=== PATIENT | female | born 1970 | race Caucasian/White ===

== ENCOUNTER → 2017-01-30 | Outpatient (CLI) | payer MEDICAID ==
[~2017-01-30] MED LIST: AMRIX15 MG PO; ASPIRIN 81MG TA81 MG PO; ATIVAN1 MG PO; ATIVAN2 MG PO; AVPAK AZITHROM250 MG PO; BENZONATATE100 M1 PO; BYSTOLIC10 MG PO; CARISOPRODOL350 MG PO; CELEXA20 MG PO; CITALOPRAM20 MG PO; CLONIDINE 0.1M0.1 MG TD; CLONIDINE0.1 MG PO; DICLOFENAC SODI75 M2 PO; FLORINEF 0.1MG0.1 MG OR; GABAPENTIN100 M1 PO; HALDOL 1MG. TABL1 MG PO; HYDROCHLOROTHIA25 M1 PO; HYDROCODONE BIT1 T39 PO; KAPIDEX60 MG PO; KEFLEX 500MG.500 MG PO; LEVOTHYROXINE0.05 MG PO; LISINOPRIL 20MG20 MG PO; LORAZEPAM2 MG PO; LORTAB 5/500 501 TAB PO; MEDROL 4MG. DOSE4 MG PO; METOPROLOL TAR100 MG PO; MS CONTIN PO; NEURONTIN 100100 MG PO; NEXIUM40 MG PO; NORVASC 10MG. T10 MG PO; PHENERGAN 25MG.25 M1 PO; PHENERGAN50 M1 PO; PROMETHAZINE D473 ML PO; PROPRANOLOL HCL40 MG PO; RANITIDINE HCL150 MG PO; REGLAN 10 MG TA10 MG PO; SOMA350 MG PO; SPIRONOLACTONE50 MG OR; VENTOLIN H0.09 MG/Ac IH; ZITHROMAX Z PA250 MG PO; ZOLPIDEM 10MG T10 MG PO
--- NOTE | 2017-01-30 16:28 | RADIOLOGY REPORT PS360 ---
CT ABD PELVIS W/ CONTRAST CLINICAL INDICATION: LLQ PAIN,POSS HERNIA ORDERING PHYSICIAN: González French MD PATIENT AGE: 46 years COMPARISON: None TECHNIQUE: Axial images obtained with sagittal and coronal reformats. PROCEDURE: Oral Contrast: Redicat IV Contrast: 75 mL Isovue-370 . FINDINGS: There are minimal atelectatic or fibrotic changes are in the lung bases. There is mild diffuse hepatic steatosis. Prior cholecystectomy. No biliary dilatation. The spleen, adrenal glands, and pancreas are unremarkable. No hydronephrosis or obstructing renal or ureteral calculus. No intestinal obstruction or free air. The appendix has an unremarkable appearance. The uterus is somewhat bulky abnormal lobular contour which may be seen with fibroid involvement. Ultrasound may confirm. 2.7 cm isodensity right adnexa consistent with right ovarian cyst. Lobular left ovarian cyst present at 3.7 cm. No abdominal wall hernia there is mild thickening of the sigmoid colon probably related to nondistention. There is no stranding of the pericolic fat and no abnormal fluid collections are evident. There are bilateral tubal ligation clips. There is some thickening of the left lower abdominal wall probably related to prior surgery. No hernia is evident. IMPRESSION: 1. No acute intra-abdominal or pelvic pathology. 2. No evidence of abdominal wall hernia. Postsurgical changes of the anterior abdominal wall and the left. 3. Bilateral ovarian cysts. The uterus is somewhat bulky. Pelvic ultrasound may be of further value 4. Other nonacute findings as described above
== END ==
LOC: RAD 10:11
DX: R10.32 Left lower quadrant pain (principal)
CPT/HCPCS: Q9967

== ENCOUNTER 2017-07-01 18:13 | Observation (INO) | payer MEDICAID ==
[~2017-07-01] VITALS: Ht 167.6 cm; Wt 91.4 kg
[2017-07-01 18:15] VITALS: BP 123/74
[2017-07-01] MEDS ORDERED: CLONIDINE 0.2M0.2 MG PO ×2 (18:27→23:30)
--- OUTSIDE RECORDS SUMMARY | 2017-07-01 19:04 | External Medical Summary Rpt ---
Author Author [facility] Organization [facility] Address Unknown Phone Unavailable Care Team Providers Care Supervisor [employer] Name Role Phone LILIA, (REF) PCP [phone] Encounter [facility] [id number] Date(s): 03/24/16 - 11/25/16 [facility] [address] [place] [address]- Reason for Visit NEW PT - GASTROPARESIS Vital Signs No data available for this section Problem List No data available for this section Allergies, Adverse Reactions, Alerts No data available for this section Medications No data available for this section Results No data available for this section Immunizations No data available for this section Procedures No data available for this section Social History No data available for this section Assessment and Plan No data available for this section Hospital Discharge Instructions No data available for this section
--- OUTSIDE RECORDS SUMMARY | 2017-07-01 19:04 | External Medical Summary Rpt ---
Author Author [facility] Organization [facility] Address Unknown Phone Unavailable Care Team Providers Care Machine Leather Trimmer Name Role Phone LILIA, (REF) PCP [phone] Encounter [facility] [id number] Date(s): 02/29/16 - 03/24/17 [facility] [address] [place] [address]- [phone] Discharge Disposition: OP Self Care or Home Reason for Visit NEW PT - GASTROPARESIS [...]
--- OUTSIDE RECORDS SUMMARY | 2017-07-01 19:04 | External Medical Summary Rpt ---
Author Author [facility] Organization [facility] Address Unknown Phone Unavailable Care Team Providers Care Crane Crew Supervisor Name Role Phone LILIA, (REF) PCP [phone] Encounter [facility] [id number] Date(s): 03/24/16 - 11/25/16 [facility] [address] [place] [address]- Reason for Visit NEW PT - GASTROPARESIS [...]
--- OUTSIDE RECORDS SUMMARY | 2017-07-01 19:04 | External Medical Summary Rpt ---
Author Author [facility] Organization [facility] Address Unknown Phone Unavailable Care Team Providers Care Trailhead Construction Worker Name Role Phone LILIA, (REF) PCP [phone] Encounter [facility] [id number] Date(s): 02/29/16 - 03/24/[address] [facility] [address] [place] [address]- [phone] Discharge Disposition: OP Self Care or Home [...]
--- OUTSIDE RECORDS SUMMARY | 2017-07-01 19:13 | External Medical Summary Rpt ---
Author Author , MARLA Ochoa MARLA Address Unknown Phone [email or web address] Care Team Providers Care Thread Weaver Name Role Phone ALLRAN JR, ALLRAN JR Unavailable Unavailable ALLRAN JR MILY, ALLRAN Unavailable Unavailable JR MILY PAVAN MUELLER MD, PSC, Unavailable Unavailable PAVAN MUELLER MD, PSC ARNMALLY MAXFAYE Unavailable Unavailable MAX ARNMALLY MAX, ARNOLD Unavailable Unavailable MXA [facility] Unavailable Unavailable MEDICAL GROUP, [facility] Un[facility] Unavailable [facility], [facility] BEINEKE, BEINEKE Unavailable Unavailable BEINEKE KOLBY BEINEKE Unavailable Unavailable KOLBY JIMENEZ TER, JIMENEZ TER Unavailable Unavailable BESSON OFE, BESSON Unavailable Unavailable OFE [facility] Unavailable Unavailable [facility], [facility] SANTIAGO, SANTIAGO Unavailable Unavailable TEAGAN ANT, TEAGAN ANT Unavailable Unavailable MICHAEL, MICHAEL Unavailable Unavailable MICHAEL MEGAN, MICHAEL Unavailable Unavailable MEGAN [facility] Unavailable Unavailable SERVICE, [facility] Unavailable Unavailable SERVICE, [facility] BUX, BUX Unavailable Unavailable [facility], Unavailable Unavailable LLC, [facility], Unavailable Unavailable LLC, [facility] Unavailable Unavailable CONSULTANTS O, [facility] CASE JUS, CASE JUS Unavailable Unavailable [facility], Unavailable Unavailable [facility] Unavailable Unavailable PHYS [facility], [facility] Unavailable Unavailable [facility]OC, [facility] Unavailable Unavailable THE BLUE, [facility] MARKS HESHAM, MARKS HESHAM Unavailable Unavailable JAYLYN MOTA, Unavailable Unavailable JAYLYN MOTA CROSSFIELD KOLBY, Unavailable Unavailable CROSSFIELD KOLBY CROSSFIELD KOLBY, Unavailable Unavailable CROSSFIELD KOLBY ALYCE JANET, Unavailable Unavailable ALYCE JANET ALYCE JANET, Unavailable Unavailable ALYCE JANET ZACHARY FEDE, ZACHARY Unavailable Unavailable FEDE DUFF, DUFF Unavailable Unavailable DUFF CHARMAINE, DUFF CHARMAINE Unavailable Unavailable TOÑITO MAURICE, Unavailable Unavailable TOÑITO MAURICE [facility], [facility] Unavailable Unavailable [facility], [facility] Unavailable Unavailable JOHNSON, JOHNSON Unavailable Unavailable JOHNSON, JOHNSON Unavailable Unavailable JOHNSON CLA, JOHNSON Unavailable Unavailable CLA JAROD FEDE, JAROD Unavailable Unavailable FEDE [facility], [facility], Unavailable [facility] Unavailable Unavailable EMS, [facility] CALLUM WHI, CALLUM Unavailable Unavailable WHI CALLUM WHI, CALLUM Unavailable Unavailable I [facility] Unavailable Unavailable INC, [facility] Unavailable Unavailable HOSPITAL, [facility] Unavailable Unavailable HOSPITAL P, [facility] P [facility], Unavailable Unavailable [facility] GO, GO Unavailable Unavailable GO TRA, GO TRA Unavailable Unavailable GO TRA, GO TRA Unavailable Unavailable ESPINOSA LEL, ESPINOSA LEL Unavailable Unavailable [facility] Unavailable Unavailable [facility] TALHAMt SANCHEZ, KEIRA Unavailable Unavailable M DANIEL [facility] Unavailable Unavailable [facility]ING [facility], [facility] Unavailable Unavailable ASSOCIAT, [facility] TAYLOR OFE, TAYLOR Unavailable Unavailable OFE CLEVE, CLEVE Unavailable Unavailable [facility] NURSE Unavailable Unavailable PRACTITIONER GR, [facility] NURSE PRACTITIONER MITCH GERONIMO Unavailable Unavailable [facility], [facility] Unavailable Unavailable HOLDINGS, [facility] Unavailable Unavailable HOLDINGS, [facility] Unavailable Unavailable [facility], [facility] Unavailable Unavailable [facility], [facility]ORATORY Unavailable Unavailable CORPORATION OF AM, [facility] DOMI CRI, DOMI CRI Unavailable Unavailable BRIAN JR DWI, BRIAN Unavailable Unavailable JR DWI [facility] Unavailable Unavailable ASSOCIATES,, [facility], GARCIA MAX, GARCIA Unavailable Unavailable MAX Antoinette Villeda MD, Unavailable Unavailable Antoinette Villeda MD MARII HAM, MARII HAM Unavailable Unavailable MARII HAM, MARII HAM Unavailable Unavailable APPLE, APPLE Unavailable Unavailable APPLE ANT, APPLE Unavailable Unavailable ANT APPLE ANT, APPLE Unavailable Unavailable ANT LUDMILA, LUDMILA Unavailable Unavailable LUDMILA, LUDMILA Unavailable Unavailable LUDMILA GRE, Unavailable Unavailable LUDMILA GRE LUDMILA GRE, Unavailable Unavailable LUDMILA GRE HANKS MAX, HANKS Unavailable Unavailable MAX [facility]available Unavailable SERV LEAD MATERIAL HANDLER R, [facility] LEAD MATERIAL HANDLER R [facility] Unavailable Unavailable SERV LEAD MATERIAL HANDLER R, [facility] SERV LEAD MATERIAL HANDLER R MONGIARDO FRA, Unavailable Unavailable MONGIARDO FRA MORRIN, MORRIN Unavailable Unavailable MORRIN YANY, MORRIN Unavailable Unavailable YANY [facility] Unavailable Unavailable BOARD, [facility] Unavailable Unavailable [facility], Unavailable Unavailable PLLC, [facility], [facility] Unavailable Unavailable PICKLESIMER JR YEE, Unavailable Unavailable PICKLESIMER JR YEE TOLENTINO, TOLENTINO Unavailable Unavailable FLORENTIN SUSAN, FLORENTIN SUSAN Unavailable Unavailable SCALF, SCALF Unavailable Unavailable ESSIE CAROL ANN, ESSIE Unavailable Unavailable CAROL ANN [facility], Unavailable Unavailable [facility] Unavailable Unavailable JAL, [facility] MAT, Unavailable Unavailable FINES[facility] MAT PADILLA JAVI, PADILLA Unavailable Unavailable JAVI PARKS, PARKS Unavailable Unavailable PARKS, PARKS Unavailable Unavailable PARKS JOCELIN, PARKS JOCELIN Unavailable Unavailable SOTINGEANU KOLBY, Unavailable Unavailable SOTINGEANU KOLBY CHEMA, CHEMA Unavailable Unavailable SPOONAMORE, Unavailable Unavailable SPOONAMORE STEARLEY SET, Unavailable Unavailable STEARLEY SET Gene Dent MD, Unavailable Unavailable Gene Dent MD JOSE DE JESUS HOLLY, JOSE DE JESUS Unavailable Unavailable HOLLY FRANCINE PAD, Unavailable Unavailable FRANCINE PAD FERDINAND, FERDINAND Unavailable Unavailable [facility], [facility] Unavailable Unavailable [facility], Unavailable Unavailable [facility] VASCELLO GIANNI, Unavailable Unavailable VASCELLO GIANNI VASCELLO GIANNI, Unavailable Unavailable VASCELLO GIANNI WALKER, WALKER Unavailable Unavailable WALKER FOR, WALKER Unavailable Unavailable FOR HAROLDO SHIELDS Unavailable Unavailable HERRERA WHITE JUDY, WHITE JUDY Unavailable Unavailable Purpose Continuity of Care Document - 01-06-2013 through 2016 Problems Code Diagnosis DOS Provider Status [id number] OTHER 05-25-2017 [facility] VITREOUS OPACITIES RIGHT EYE H538 OTHER 05-25-2017 [facility] VISUAL DISTURBANCE S M5030 OT 05-25-2017 [facility] CERVICAL [facility] DISC INC DEGENERATIO N UNS CERV REGION M5136 OTH 05-20-2017 [facility] INTER[facility]TEB ORTHOTICS, RAL DISC LLC DEGEN LUMBAR REGION M5010 CERVICAL 05-06-2017 PAVANJAY JAY VILLEGASX, DISC D/O MD, PSC W/RADICULOP ATHY UNS CERV RGN M5116 INTERVERTEB 05-06-2017 PAVAN VILLEGASX, RAL DISC , PSC D/O W/RADICULOP ATHY LUMB RGN M961 POSTLAMINEC 05-06-2017 [facility] JUSTINO [facility] SYNDROME INC NEC R52 PAIN 05-06-2017 COMMUNITY UNSPECIFIED ANESTH OF THE BLUE R14618 ENCOUNTER 05-01-2017 [facility] FOR OTHER MEM [facility]OS[facility] PREPROCEDUR INC AL EXAMINATION Z0100 ENCOUNTER 04-27-2017 STEVENSON EXAM EYES & VISION W/O ABNORMAL FIND M7062 TROCHANTERI 04-20-2017 GRACE Kellogg BURSITIS ORTHOPEDIC LEFT HIP ASSOCIAT I32009 LATTICE 04-15-2017 JOHNSON DEGENERATIO N OF RETINA BILATERAL H5310 UNSPECIFIED 04-15-2017 ALEX SUBJECTIVE VISUAL DISTURBANCE S Q0700 ARNOLD-KEAGAN 04-15-2017 JOHNSON RI SYND W/O SPINA BIFIDA/HYDR OCEPHLUS Z36477 MIGRAINE 04-09-2017 [facility] W/O AURA NEUROLOGY INTRACT W/O STAT MIGRAINOSUS G8929 OTHER 04-09-2017 [facility] PAIN MEDICAL GROUP J0140 ACUTE 04-09-2017 [facility] PANSINUSITI HEALTH S MEDICAL UNSPECIFIED GROUP [id number] PAIN IN 04-09-2017 [facility] LEFT HIP HEALTH MEDICAL GROUP R51 HEADACHE 04-09-2017 [facility] R600 LOCALIZED 04-09-2017 [facility] EDEMA COMMUNTIY HOSPITA E039 HYPOTHYROID 04-02-2017 [facility] ISM HEALTH UNSPECIFIED MEDICAL GROUP J0100 ACUTE 04-02-2017 [facility] MAXILLARY HEALTH SINUSITIS MEDICAL UNSPECIFIED GROUP M549 DORSALGIA 04-02-2017 [facility] UNSPECIFIED HEALTH MEDICAL GROUP M5412 RADICULOPAT 03-16-2017 [facility] HY CERVICAL MEM HOSP REGION INC M5416 RADICULOPAT 03-16-2017 [facility] HY LUMBAR [facility] REGION INC K3184 GASTROPARES 02-06-2017 [facility] PHYSIC[facility]ANS GROUP D259 LEIOMYOMA 02-05-2017 [place] [facility] OF U[place] SERV UNSPECIFIED FOUNDATION I10 ESSENTIAL 02-05-2017 [place] [facility] PRIMARY SERV HYPERTENSIO FOUNDATION N S11449 UNSPECIFIED 02-05-2017 [place] [facility] OVARIAN SERV CYST RIGHT FOUNDATION SIDE L64018 UNSPECIFIED 02-05-2017 [place] [facility] O[facility] SERV CYST LEFT FOUNDATION SIDE N898 OTHER 02-05-2017 [place] [facility] SPECIFIED SERV NONINFLAMMA FOUNDATION TORY DISORDERS VAGINA R978 OTHER 02-05-2017 [place] [facility] ABNORMAL SERV TUMOR FOUNDATION MARKERS Z8041 FAMILY 02-05-2017 [place] [facility] HISTORY OF SERV MALIGNANT FOUNDATION NEOPLASM OF OVARY R1032 LEFT LOWER 01-30-2017 [place] [facility]ING ASS R1013 EPIGASTRIC 01-20-2017 COMMUNITY PAIN ANESTH OF THE BLUE K651 PERITONEAL 01-05-2017 [facility] ABSCESS PHYSICIANS GROUP G4719 OTHER 12-31-2016 [facility] HYPERSOMNIA [facility] INC R0683 SNORING 12-31-2016 [facility] INC G935 COMPRESSION 12-23-2016 [facility] OF BRAIN [facility]OS[facility] INC K219 GASTRO-ESOP 12-23-2016 [facility] H REFLUX MEM HOSP DISEASE INC WITHOUT ESOPHAGITIS K5900 CONSTIPATIO 12-11-2016 LAB DEVENDRA N MANISH UNSPECIFIED HOLDINGS M2550 PAIN IN 12-11-2016 LAB DEVENDRA UNSPECIFIED MANISH JOINT HOLDINGS R350 FREQUENCY 12-11-2016 LAB DEVENDRA OF MANISH MICTURITION HOLDINGS I87985 UNSPECIFIED 11-10-2016 [facility] OVARIAN [facility] CYST INC UNSPECIFIED SIDE M791 MYALGIA 10-17-2016 [facility] INC G909 DISORDER 09-30-2016 [facility] AUTONOMIC MEDICAL NERVOUS GROUP SYSTEM UNS R072 PRECORDIAL 09-30-2016 [facility] PAIN HEALTH MEDICAL GROUP E782 MIXED 09-26-2016 LAB DEVENDRA HYPERLIPIDE MANISH HERIBERTO HOLDINGS I69049 ENCOUNTER 09-26-2016 [facility], GENERAL MERCHANDISE MANAGER EXAM LLC GENERAL RTN W/O ABNORMAL FIND Z1151 ENCOUNTER 09-26-2016 [facility], FOR LLC SCREENING FOR HUMAN PAPILLOMAVI IVET L659 NONSCARRING 09-12-2016 [facility] HAIR LOSS [facility] UNSPECIFIED INC G57256U LAC W/O FB 09-01-2016 [facility] RT MIDDLE [facility] FINGER W/O INC DAMAGE NAIL INIT M08937I LAC W/O FB 09-01-2016 [facility] UNS FINGER PHYSICIANS, W/O DAMAGE PLLC NAIL INITIAL D722PLQ CONTACT OTH 09-01-2016 [facility] SHARP [facility] OBJECT NOT INC ELSWHERE CLASS INIT F90601 KITCHEN 09-01-2016 [facility] SINGLE-FAM MEM H[facility]P HOUSE PLACE INC OCCUR EXT CAUSE Z23 ENCOUNTER 09-01-2016 [facility] FOR MEM HOS[facility] IMMUNIZATIO INC N M4806 SPINAL 08-27-2016 [facility] STENOSIS COMMUNTIY LUMBAR HOSPITA REGION M5126 OTH 08-27-2016 [facility] INTERVERTEB COMMUNTIY RAL DISC HOSPITA DISPLACEMEN T LUMBAR RGN M542 CERVICALGIA 08-25-2016 [facility] PHYSICIANS GROUP D229 MELANOCYTIC 08-07-2016 K[facility] NURSE NEVI PRACTITIONE UNSPECIFIED R GR I868 VARICOSE 08-07-2016 KM NURSE VEINS OF PRACTITIONE OTHER R GR SPECIFIED SITES L709 ACNE 08-07-2016 [facility] NURSE UNSPECIFIED PRACTITIONE R GR R601 GENERALIZED 08-05-2016 LAB DEVENDRA EDEMA MANISH HOLDINGS M8580 OT SPEC 07-08-2016 [facility] D/O BONE HEALTH DENSITY MEDICAL STRUCTURE GROUP [facility] SITE M545 LOW BACK 07-03-2016 [facility] PAIN ORTHOPAEDIC S PSC M461 SACROILIITI 06-27-2016 [facility] S NOT MEM HOSP ELSEWHERE INC CLASSIFIED H5213 MYOPIA 06-12-2016 [facility] BILATERAL SERV FOUNDATION H5319 OTHER 06-12-2016 [place] [facility] SUBJECTIVE SERV VISUAL FOUNDATION DISTURBANCE S X22412 CHRONIC 05-14-2016 [facility] MIGRAINE HEALTH W/O AURA MEDICAL INTRACT W/O GROUP STAT MIGR M810 AGE-RELATED 05-09-2016 [facility] OSTEOPOROSI INC S W/O CURRNT PATH FX Z1231 ENCOUNTER 05-09-2016 [facility] SCREENING MEDICAL MAMMO MALIG IMAGING ASS NEOPLASM BREAST P01759 ENCOUNTER 05-09-2016 [place] FOR MEDICAL SCREENING IMAGING ASS FOR OSTEOPOROSI S K5909 OTHER 05-06-2016 [facility] CONSTIPATIO Medicine N K591 FUNCTIONAL 05-06-2016 [facility] DIARRHEA Medicine M4800 SPINAL 05-06-[address] [facility] UNSPECIFIED R140 ABDOMINAL 05-06-2016 [facility] DISTENSION Medicine GASEOUS R6881 EARLY 05-06-2016 [facility] SATIETY Medicine R5382 CHRONIC 04-29-2016 [facility] FATIGUE [facility] UNSPECIFIED MEDICAL GROUP R5383 OTHER 04-18-2016 LAB DEVENDRA FATIGUE MANISH HOLDINGS R42 DIZZINESS 04-07-2016 HM AND PHYSICIANS GIDDINESS GROUP [id number] CONCUSSION 04-07-2016 [facility] WITHOUT LOC PHYSICIANS INITIAL GROUP ENCOUNTER X92362 ACUTE 03-02-2016 [place] [facility] [facility]PPURATIVE [facility] W/O HOSPITAL RUPT EAR DRUM UNS EAR R110 NAUSEA 02-27-2016 [facility] GROUP [id number] CONCUSSION 02-27-2016 [facility] W/LOC UNS HEALTH DURATION MEDICAL INITIAL GROUP ENCOUNTER M1611 UNILATERAL 01-29-2016 [place] PRIMARY MEDICAL OSTEOARTHRI IMAGING ASS TIS RIGHT HIP Z25771 PAIN IN 01-29-2016 [place] RIGHT HIP MEDICAL IMAGING ASS H5210 MYOPIA 01-15-2016 [place] [facility] UNSPECIFIED SERV EYE FOUNDATION H5203 HYPERMETROP 12-27-2015 [facility] IA GRE BILATERAL J069 ACUTE UPPER 12-13-2015 LAB DEVENDRA MANISH RESPIRATORY HOLDINGS INFECTION UNSPECIFIED R928 OTH ABNORM 12-13-2015 [facility] & HEALTH INCONCLUSIV MEDICAL E FIND ON GROUP DX IMAG BREAST Z6829 BODY MASS 12-13-2015 [facility] INDEX BMI HEALTH 29.0-29.9 MEDICAL ADULT GROUP J0190 ACUTE 12-09-2015 [facility]IS [facility] R05 COUGH 11-16-2015 [facility] ASTUDILLO, [facility] M5430 SCIATICA 10-17-2015 [facility] UNSPECIFIED HEALTH SIDE MEDICAL GROUP H539 UNSPECIFIED 10-04-2015 [facility] VISUAL HEALTH DISTURBANCE MEDICAL GROUP R358 OTHER 10-04-2015 [facility] POLYURIA HEALTH MEDICAL GROUP R079 CHEST PAIN 10-02-2015 [place] [facility] UNSPECIFIED SERV FOUNDATION R9431 ABNORMAL 10-02-2015 [facility] ELECTROCARD LAR IOGRAM CONSULTANTS O C32538 OTHER LONG 10-01-2015 [facility] TERM PHYSICIANS CURRENT GROUP DRUG THERAPY Z0000 ENCOUNTER 09-25-2015 [facility] GEN ADULT HEALTH MED EXAM MEDICAL W/O GROUP ABNORMAL FIND A6000 HERPESVIRAL 08-17-2015 [facility] INFECTION HEALTH OF MEDICAL UROGENITAL GROUP SYSTEM UNS B009 HERPESVIRAL 08-17-2015 [facility] INFECTION HEALTH UNSPECIFIED MEDICAL GROUP Z202 CONTACT 08-17-2015 [facility] WITH HEALTH EXPOSURE MEDICAL INFECT GROUP SEXUAL MODE TRANSMS 93931 DEGEN 07-26-2015 [place] [place] LUMBAR/LUMB MEDICAL OSACRAL IMAGING ASS INTERVERTEB RAL DISC 7242 LUMBAGO 07-26-2015 [facility] 71355 PROGRESSIVE 07-25-2015 [facility] HIGH SERV MYOPIA FOUNDATION 55312 CHRONIC 07-11-2015 [facility] MIGRAINE HEALTH W/O MEDICAL W/INTRACTAB GROUP LE W/O SM 7231 CERVICALGIA 07-11-2015 [facility]ICAL GROUP 7049 UNSPECIFIED 07-02-2015 [facility] DISEASE OF HEALTH HAIR AND MEDICAL HAIR GROUP FOLLICLES 7245 UNSPECIFIED 07-02-2015 [facility] BACKACHE HEALTH MEDICAL GROUP 7881 DYSURIA 07-02-2015 LAB DEVENDRA MANISH HOLDINGS 3384 CHRONIC 06-22-2015 LAB DEVENDRA PAIN MANISH SYNDROME HOLDINGS 5990 URINARY 06-22-2015 LAB DEVENDRA TRACT MANISH INFECTION HOLDINGS SITE NOT SPECIFIED 93520 OTHER 06-15-2015 [place] [facility] VITREOUS SERV OPACITIES FOUNDATION 5363 GASTROPARES 05-14-2015 [facility] IS SERV FOUNDATION 5609 UNSPECIFIED 05-14-2015 [facility] INTESTINAL SERV FOUNDATION OBSTRUCTION 7873 FLATULENCE 05-14-2015 [place] [facility] ERUCTATION SERV AND GAS FOUNDATION PAIN 4011 ESSENTIAL 05-01-2015 [facility] HYPERTENSIO HEALTH N, BENIGN MEDICAL GROUP 26266 ACUTE 05-01-2015 [facility] IDIOPATHIC HEALTH PERICARDITI MEDICAL S GROUP 73207 OTHER CHEST 05-01-2015 [facility] PAIN HEALTH MEDICAL GROUP V7281 PRE-OPERATI 05-01-2015 [facility] VE HEALTH CARDIOVASCU MEDICAL LAR GROUP EXAMINATION 7213 LUMBOSACRAL 04-23-2015 [place] [facility] SPONDYLOSIS IMAGING ASS WITHOUT MYELOPATHY 21555 DISPLCMT 04-23-2015 [place] LUMBAR MEDICAL INTERVERT IMAGING ASS DISC W/O MYELOPATHY 76091 LATTICE 04-20-2015 [place] [facility] DEGENERATIO SERV N OF FOUNDATION PERIPHERAL RETINA 2449 UNSPECIFIED 04-08-2015 [facility] HYPOTHYROID ISM 3671 MYOPIA 04-08-2015 [facility] 46514 OTHER 04-08-2015 [facility] DISTORTIONS AND ENTOPTIC PHENOMENA 3688 OTHER 04-08-2015 [place] [facility] SPECIFIED SERV VISUAL FOUNDATION DISTURBANCE S 07023 PAIN IN OR 04-08-2015 [facility] 4019 UNSPECIFIED 04-08-2015 [facility] HYPERTENSIO N 4239 UNSPECIFIED 04-08-2015 [facility] PERICARDIUM 4289 UNSPECIFIED 04-08-2015 [facility] FAILURE SERV LEAD MATERIAL HANDLER R 56023 OTHER 04-08-2015 [facility] LUNG NOT ELSEWHERE CLASSIFIED 81198 CHEST PAIN 04-08-2015 [place] [facility] UNSPECIFIED SERV FOUNDATION V1259 PERS HX, 04-08-2015 [place] [facility] OTHER SERV DISEASES OF FOUNDATION CIRCULATORY SYSTEM 3699 UNSPECIFIED 04-07-2015 [facility] VISUAL EMERGENCY LOSS PHYS PSC 39524 UNSPECIFIED 04-07-2015 [facility] DISORDER AMBULANCE OF EYE SERVICE 7820 DISTURBANCE 03-29-2015 [facility] SKIN [facility] SENSATION MEDICAL GROUP 78149 REGULAR 03-28-2015 [place] [facility] ASTIGMATISM SERV FOUNDATION 08584 INTERMITTEN 03-28-2015 [place] [facility] T SERV EXOTROPIA, FOUNDATION ALTERNATING 38664 OTHER 03-01-2015 [place] SPECIFIED MEDICAL DISORDERS IMAGING ASS OF BREAST 79433 UNSPECIFIED 03-01-2015 [facility] ABNORMAL [facility] MAMMOGRAM INC 06409 ATROPHIC 02-26-2015 [facility], GASTRITIS LLC WITHOUT MENTION OF HEMORRHAGE 43180 UNS 02-26-2015 [facility] GASTRITIS&G [facility]OS[facility] ASTRODUODIT INC IS W/O MENTION HEMORR 84160 NAUSEA 02-26-2015 [facility] ALONE [facility] INC 97199 ABDOMINAL 02-26-2015 [facility] PAIN, MEM HOSP GENERALIZED INC V5869 LONG-TERM 02-26-2015 [facility] (CURRENT) MEM HOS[facility] USE OF INC OTHER MEDICATIONS 7804 DIZZINESS 11-29-2014 [facility] 7840 HEADACHE 11-29-2014 [facility] MEDICAL GROUP 15984 OTHER 10-27-2014 [facility] DISEASES OF PHYSICIANS LARYNX GROUP 08025 DYSPHONIA 10-27-2014 [facility] PHYSICIANS GROUP 72339 DYSPHAGIA 10-27-2014 [facility] UNSPECIFIED PHYSICIANS GROUP V642 SURG/OTH 10-23-2014 [facility] PROC NOT [facility] CAR[facility]ED OUT HOSPITAL P BECAUSE PTS DECN 72453 EARLY 10-17-2014 [facility] SATIETY PHYSICIANS GROUP 98221 DYSPHAGIA 10-17-2014 [facility] OROPHARYNGE PHYSICIANS AL PHASE GROUP 36450 ABDOMINAL 10-17-2014 [facility] PAIN, PHYSICIANS EPIGASTRIC GROUP 79152 INSOMNIA 09-27-2014 [facility] KORINA V700 ROUTINE 09-21-2014 [facility]AL [facility] MEDICAL INC EXAM@HEALTH CARE FACL V7612 OTHER 09-21-2014 [place] SCREENING MEDICAL MAMMOGRAM IMAGING ASS 46082 ABDOMINAL 09-18-2014 [place] PAIN, MEDICAL UNSPECIFIED IMAGING ASS SITE 3829 UNSPECIFIED 09-16-2014 ARN[facility] MAX OTITIS MEDIA 4619 ACUTE 09-16-2014 FAYE SANTANA SINUSITIS, UNSPECIFIED V0481 NEED 09-16-2014 F[facility] SANTANA PROPHYLACTI C VACCINATION &INOCULATIO N FLU 3502 ATYPICAL 09-06-2014 [facility] 08476 MIGRAINE 08-24-2014 [facility] W/O AURA NEUROLOGY INTRACT W/O CENTER [place] STATUS MIGRAINOSUS 2181 INTRAMURAL 08-23-2014 [facility] DESOLDERER OF UTERUS ASSOCIATES, 2189 LEIOMYOMA 08-15-2014 [place] OF UTERUS, MEDICAL UNSPECIFIED IMAGING ASS 6202 OTHER AND 08-15-2014 [facility] UNSPECIFIED MEM HOSP OVARIAN INC CYST 6259 UNSPEC 08-15-2014 [place] [facility] IMAGING ASS W/FEMALE GENITAL ORGANS 7812 ABNORMALITY 08-09-2014 [facility] OF GAIT NEUROLOGY CENTER [facility] V7231 ROUTINE 08-07-2014 [facility] BENJAMIN GYNECOLOGIC AL EXAMINATION V762 SCREENING 08-07-2014 LABORATORY FOR DEVENDRA OF MALIGNANT MANISH H NEOPLASM OF THE CERVIX 92726 ESOPHAGEAL 07-31-2014 [facility] REFLUX HEALTH MEDICAL GROUP 7291 UNSPECIFIED 06-04-2014 EMPI INC MYALGIA AND MYOSITIS 5950 ACUTE 05-03-2014 CALL[facility] BENJAMIN CYSTITIS 58681 OTHER 05-03-2014 [place] [address] OSTEOARTHRO 04-21-2014 FAYE SANTANA S INVLV MX SITES BUT [place] SPEC GEN 62530 BENIGN 04-17-2014 [facility] PAROXYSMAL [facility] POSITIONAL HOSP VERTIGO V571 OTHER 04-17-2014 [facility] PHYSICAL [facility] THERAPY [facility]OSP 7210 CERVICAL 03-21-2014 V[facility] SPONDYLOSIS GIANNI WITHOUT MYELOPATHY 7230 SPINAL 03-20-2014 [place] STENOSIS IN [place] CERVICAL REGION 78666 SPINAL STEN 03-20-2014 [place] LUMB REG [place] W/O NEUROGENIC CLAUDICATIO N 06434 SPINA 03-20-2014 [place] BIFIDA WITH KOL[place] HYDROCEPHAL US CERVICAL REGION 30927 POSTLAMINEC 01-31-2014 MARII HAM JUSTINO SYNDROME CERVICAL REGION 7244 THORACIC/ABRAHAM 01-31-2014 MARIIRUPALI STEIN MBOSACRAL NEURITIS/RA DICULITIS UNSPEC 0549 HERPES 01-26-2014 [facility] BENJAMIN SIMPLEX WITHOUT MENTION OF COMPLICATIO N 5533 DIAPHRAGMAT 01-19-2014 [facility] JERRYI ALTAGRACIA W/O MENTION OBSTRUCTION /GANGREN 7821 RASH AND 01-19-2014 CALL[facility] WHI OTHER NONSPECIFIC SKIN ERUPTION 7850 UNSPECIFIED 01-18-2014 APPLE ANT TACHYCARDIA 52933 CHRONIC 01-13-2014 [facility] W/O AURA W/O INTRACTABLE W/O SM 7218 OTHER 01-10-2014 ALY[facility] ALLIED JANET DISORDERS OF SPINE 7220 DISPLCMT 01-10-2014 [facility] CERV JANET INTERVERT DISC WITHOUT MYELOPATHY 47579 KYPHOSIS 01-10-2014 [facility] ACQUIRED JANET POSTURAL V454 ARTHRODESIS 01-10-2014 [facility] STATUS JANET V1641 FAMILY 01-05-2014 ALYCE HISTORY OF JANET MALIGNANT NEOPLASM OVARY 7224 DEGENERATIO 12-29-2013 GO TRA N OF CERVICAL INTERVERTEB RAL DISC 2724 OTHER AND 12-28-2013 APPLE ANT UNSPECIFIED HYPERLIPIDE HERIBERTO 34116 ABDOMINAL 12-08-2013 CALLUM WHI PAIN, LEFT LOWER QUADRANT 345.90 345.90 09-21-2013 Mehran EPILEPSY [facility] UNSPEC W/O Hospital MENTION INTRACTABLE EPILEPSY 401.9 401.9 09-21-2013 Mehran HYPERTENSIO [facility] N [facility] 413.9 413.9 09-21-2013 Mehran ANGINA [facility] PECTORIS [facility] NEC/NOS 786.50 786.50 09-21-2013 Mehran CHEST PAIN [facility] V14.8 V14.8 09-21-2013 Mehran HX-DRUG [facility] ALLERGY [facility] V45.89 V45.89 09-21-2013 Mehran POSTSURGICA [facility] V58.69 V58.69 OTH 09-21-2013 Mehran MED,LT,CURR [facility] ENT USE Hospital 4299 UNSPECIFIED 09-10-2013 [facility] 60657 ALTERED 09-06-2013 [facility] 692.9 692.9 05-24-2013 Mehran DERMATITIS [facility] 723.1 723.1 05-24-2013 Mehran CERVICALGIA [facility] 780.39 780.39 05-24-2013 Mehran OTHER [facility] CONVULS[facility] [place] [facility] 780.2 780.2 01-07-2013 Mehran SYNCOPE AND [facility] 780.79 780.79 OTH 01-07-2013 Mehran MALAISE&FAT [facility] IGUE [facility] 781.2 781.2 01-07-2013 Mehran ABNORMALITY [facility] M54.2 CERVICALGIA R05 COUGH R07.9 CHEST PAIN, UNSPECIFIED R51 HEADACHE S61.219A LACERATION W/O FB OF UNSP FINGER W/O DAMAGE TO NAIL, INIT Z53.21 PROC/TRTMT NOT CRD OUT D/T PT LV BEF SEEN BY [facility] PROV Allergies, Adverse Reactions, Alerts Type Drug Allergy Adverse Reaction to Substance Substance Reaction Severity Penicillin Unknown Unknown Penicillin G Unknown Unknown Ondansetron Unknown Unknown Niacin Unknown Unknown Medications Na ND Rx Da Fi Fi Am Da Di Ph RX Ph St me C No te ll ll ou ys ag ar # ys at rm s nt no ma ic us Or Da si cy ia de te s n re d ZO 13 07 08 30 30 00 RI Ac LP 66 -1 -1 .0 00 TE ti ID 80 7- 1- 00 01 ve EM 00 20 20 18 AI 80 17 17 72 D TA 1 21 PH RT AR RA MA TE CY 10 #3 93 MG 8 TA BL ET VA 65 07 08 30 7 00 RI Ac OM 16 -1 -0 .0 00 TE ti ET 20 0- 4- 00 01 ve GERARDO 52 20 20 19 AI ZI 11 17 17 11 D NE 0 08 PH AR 25 MA CY MG #3 TA 93 BL 8 ET PO 62 07 08 52 30 00 RI Ac LY 17 -1 -0 7. 00 TE ti ET 50 0- 4- 00 01 ve HY 44 20 20 0 16 AI LE 23 17 17 85 D NE 1 77 PH AR GL MA YC CY OL #3 33 93 50 8 PO WD OM 00 07 08 30 30 00 RI Ac EP 78 -1 -0 .0 00 TE ti RA 12 2- 4- 00 01 ve ZO 79 20 20 18 AI LE 01 17 17 [address] AR MA 20 CY MG #3 93 CA 8 PS UL E TO 69 07 07 30 30 00 RI Ac PI 09 -0 -2 .0 00 TE ti RA 70 3- 8- 00 01 ve MA 12 20 20 19 AI TE 20 17 17 02 D 3 98 PH 25 AR MA MG CY TA #3 BL 93 ET 8 AM 00 07 07 30 30 00 RI Ac LO 37 -0 -2 .0 00 TE ti DI 85 3- 8- 00 01 ve PI 20 20 20 17 AI NE 90 17 17 91 D 5 31 PH BE AR SY MA LA CY TE 5 #3 93 MG 8 TA B CL 00 07 07 12 30 00 RI Ac ON 22 -0 -2 0. 00 TE ti ID 82 3- 8- 00 01 ve IN 12 20 20 0 18 AI E 75 17 17 31 D HC 0 00 PH L AR 0. MA 1 CY MG #3 TA 93 BL 8 ET BY 00 06 07 60 [address] 45 -2 -2 .0 00 TE ti OL 61 7- 1- 00 01 ve IC 42 20 20 16 AI 03 17 17 75 D 20 0 84 PH AR MG MA CY TA BL #3 ET 93 8 PH 00 06 07 10 3 00 RI Ac EN 59 -2 -2 .0 00 TE ti AD 12 7- 1- 00 01 ve OZ 99 20 20 18 AI 23 17 17 96 D 25 9 41 PH AR MG MA CY TIPTON PP #3 OS 93 IT 8 OR Y TA 00 06 07 60 30 00 RI Ac MS 78 -2 -2 .0 00 TE ti UL 12 7- 1- 00 01 ve OS 07 20 20 18 AI IN 60 17 17 96 D 1 42 PH HC AR L MA 0. CY 4 MG #3 93 CA 8 PS UL E FL 68 06 07 2. 4 00 RI Ac UC 46 -2 -2 00 00 TE ti ON 20 7- 1- 0 01 ve AZ 10 20 20 18 AI OL 34 17 17 96 D E 0 43 PH 15 AR 0 MA MG CY TA #3 BL 93 ET 8 SY 00 06 07 30 30 00 RI Ac NT 07 -2 -2 .0 00 TE ti HR 44 7- 1- 00 01 ve OI 55 20 20 18 AI D 29 17 17 61 D 50 0 48 PH AR MC MA G CY TA BL #3 ET 93 8 AM 00 06 06 30 30 00 RI Ac LO 37 -0 -3 .0 00 TE ti DI 85 3- 0- 00 01 ve PI 20 20 20 17 AI NE 90 17 17 91 D 5 31 PH BE AR SY MA LA CY TE 5 #3 93 MG 8 TA B CL 00 06 06 12 30 00 RI Ac ON 22 -0 -3 0. 00 TE ti ID 82 5- 0- 00 01 ve IN 12 20 20 0 18 AI E 75 17 17 31 D HC 0 00 PH L AR 0. MA 1 CY MG #3 TA 93 BL 8 ET TO 69 06 06 30 30 00 RI Ac PI 09 -0 -3 .0 00 TE ti RA 70 5- 0- 00 01 ve MA 12 20 20 18 AI TE 20 17 17 32 D 3 01 PH 25 AR MA MG CY TA #3 BL 93 ET 8 OM 00 06 06 30 30 00 RI Ac EP 78 -0 -3 .0 00 TE ti RA 12 7- 0- 00 01 ve ZO 79 20 20 18 AI LE 01 17 17 [address] AR MA 20 CY MG #3 93 CA 8 PS UL E LO 00 05 06 30 10 00 RI Ac RA 59 -3 -2 .0 00 TE ti ZE 10 0- 3- 00 01 ve PA 24 20 20 18 AI M 20 17 17 59 D 2 1 65 PH MG AR MA TA CY BL ET #3 93 8 SY 00 05 06 30 30 00 RI Ac NT 07 -2 -2 .0 00 TE ti HR 44 4- 3- 00 01 ve OI 55 20 20 18 AI D 29 17 17 61 D 50 0 48 PH AR MC MA G CY TA BL #3 ET 93 8 TI 55 05 06 90 30 00 RI Ac ZA 11 -3 -2 .0 00 TE ti NI 10 1- 3- 00 01 ve DI 18 20 20 15 AI NE 01 17 17 27 D 5 66 PH HC AR L MA 4 CY MG #3 TA 93 BL 8 ET LE 65 05 06 7. 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 5 00 RI Ac IT 11 -1 -0 00 00 TE ti HR 10 7- 9- 0 01 ve OM 78 20 20 18 AI YC 76 17 17 43 D IN 6 09 PH AR 25 MA 0 CY MG #3 TA 93 BL 8 ET ZO 13 05 06 30 30 00 RI Ac LP 66 -1 -0 .0 00 TE ti ID 80 5- 9- 00 01 ve EM 00 20 20 17 AI 80 17 17 91 D TA 1 29 PH RT AR RA MA TE CY 10 #3 93 MG 8 TA BL ET VA 65 05 06 30 15 00 RI Ac OM 16 -1 -0 .0 00 TE ti ET 20 5- 9- 00 01 ve GERARDO 52 20 20 17 AI ZI 11 17 17 73 D NE 0 66 PH AR 25 MA CY MG #3 TA 93 BL 8 ET TO 69 05 06 30 30 00 RI Ac PI 09 -0 -0 .0 00 TE ti RA 70 9- 2- 00 01 ve MA 12 20 20 18 AI TE 20 17 17 32 D 3 01 PH 25 AR MA MG CY TA #3 BL 93 ET 8 AM 00 05 06 30 30 00 RI Ac LO 37 -0 -0 .0 00 TE ti DI 85 6- 2- 00 01 ve PI 20 20 20 17 AI NE 90 17 17 91 D 5 31 PH BE AR SY MA LA CY TE 5 #3 93 MG 8 TA B OM 00 05 06 30 30 00 RI Ac EP 78 -0 -0 .0 00 TE ti RA 12 6- 2- 00 01 ve ZO 79 20 20 17 AI LE 01 17 17 [address] AR MA 20 CY MG #3 93 CA 8 PS UL E CL 00 05 06 12 30 00 RI Ac ON 22 -0 -0 0. 00 TE ti ID 82 8- 2- 00 01 ve IN 12 20 20 0 18 AI E 75 17 17 31 D HC 0 00 PH L AR 0. MA 1 CY MG #3 TA 93 BL 8 ET LE 00 04 05 30 30 00 RI Ac VO 37 -2 -1 .0 00 TE ti TH 81 6- 9- 00 01 ve YR 80 20 20 17 AI OX 37 17 17 31 D IN 7 16 PH E AR 50 MA CY MC G #3 TA 93 BL 8 ET BY 00 04 05 60 [address] 45 -2 -1 .0 00 TE ti OL 61 6- 9- 00 01 ve IC 42 20 20 16 AI 03 17 17 75 D 20 0 84 PH AR MG MA CY TA BL #3 ET 93 8 CL 00 04 05 12 30 00 RI Ac ON 22 -1 -1 0. 00 TE ti ID 82 5- 2- 00 01 ve IN 12 20 20 0 16 AI E 75 17 17 35 D HC 0 08 PH L AR 0. MA 1 CY MG #3 TA 93 BL 8 ET LO 00 04 05 30 10 00 RI Ac RA 59 -1 -0 .0 00 TE ti ZE 10 0- 5- 00 01 ve PA 24 20 20 17 AI M 20 17 17 93 D 2 1 92 PH MG AR MA TA CY BL ET #3 93 8 ZO 13 04 05 30 30 00 RI Ac LP 66 -0 -0 .0 00 TE ti ID 80 9- 5- 00 01 ve EM 00 20 20 17 AI 80 17 17 91 D TA 1 29 PH RT AR RA MA TE CY 10 #3 93 MG 8 TA BL ET OM 00 04 05 30 30 00 RI Ac EP 78 -0 -0 .0 00 TE ti RA 12 7- 5- 00 01 ve ZO 79 20 20 17 AI LE 01 17 17 [address] D [address] AR MA 20 CY MG #3 93 CA 8 PS UL E AM 00 04 05 30 30 00 RI Ac LO 37 -0 -0 .0 00 TE ti DI 85 9- 5- 00 01 ve PI 20 20 20 17 AI NE 90 17 17 91 D 5 31 PH BE AR SY MA LA CY TE 5 #3 93 MG 8 TA B LE 00 03 04 30 30 00 RI Ac VO 37 -3 -2 .0 00 TE ti TH 81 0- 8- 00 01 ve YR 80 20 20 17 AI OX 37 17 17 31 D IN 7 16 PH E AR 50 MA CY MC G #3 TA 93 BL 8 ET VA 65 03 04 30 15 00 RI Ac OM 16 -2 -2 .0 00 TE ti ET 20 8- 1- 00 01 ve GERARDO 52 20 20 17 AI ZI 11 17 17 73 D NE 0 66 PH AR 25 MA CY MG #3 TA 93 BL 8 ET GA 69 03 04 90 30 00 RI Ac BA 09 -2 -2 .0 00 TE ti PE 70 8- 1- 00 01 ve NT 81 20 20 13 AI IN 41 17 17 94 D 2 90 PH 30 AR 0 MA MG CY CA #3 PS 93 UL 8 E FL 68 03 04 2. 4 00 RI Ac UC 46 -2 -2 00 00 TE ti ON 20 3- 1- 0 01 ve AZ 10 20 20 17 AI OL 34 17 17 67 D E 0 55 PH 15 AR 0 MA MG CY TA #3 BL 93 ET 8 CL 00 03 04 12 30 00 RI Ac ON 0. 00 TE ti ID 82 7- 4- 00 01 ve IN 12 20 20 0 16 AI E 75 17 17 35 D HC 0 08 PH L AR 0. MA 1 CY MG #3 TA 93 BL 8 ET AM 00 03 04 30 30 00 RI Ac LO 37 -1 -0 .0 00 TE ti DI 85 4- 7- 00 01 ve PI 20 20 20 17 AI NE 90 17 17 52 D 5 67 PH BE AR SY MA LA CY TE 5 #3 93 MG 8 TA B LE 00 02 03 30 30 00 RI Ac VO 37 -2 -2 .0 00 TE ti TH 81 8- 4- 00 01 ve YR 80 20 20 17 AI OX 37 17 17 31 D IN 7 16 PH E AR 50 MA CY MC G #3 TA 93 BL 8 ET ZO 13 02 03 30 30 00 RI Ac LP 66 -2 -1 .0 00 TE ti ID 80 1- 7- 00 01 ve EM 00 20 20 17 AI 80 17 17 22 D TA 1 28 PH RT AR RA MA TE CY 10 #3 93 MG 8 TA BL ET CL 00 02 03 12 30 00 RI Ac ON 0. 00 TE ti ID 82 7- 7- 00 01 ve IN 12 20 20 0 16 AI E 75 17 17 35 D HC 0 08 PH L AR 0. MA 1 CY MG #3 TA 93 BL 8 ET LO 00 02 03 30 30 00 RI Ac RA 78 -1 -1 .0 00 TE ti TA 15 8- 7- 00 01 ve DI 07 20 20 17 AI NE 70 17 17 18 D 1 27 PH 10 AR MA MG CY TA #3 BL 93 ET 8 AM 00 02 03 30 30 00 RI Ac LO 37 -1 -1 .0 00 TE ti DI 85 8- 7- 00 01 ve PI 20 20 20 16 AI NE 90 17 17 40 D 5 24 PH BE AR SY MA LA CY TE 5 #3 93 MG 8 TA B PH 00 02 03 10 4 00 RI Ac EN 59 -0 -0 .0 00 TE ti AD 12 3- 3- 00 01 ve OZ 99 20 20 16 AI 23 17 17 97 D 25 9 64 PH AR MG MA CY TIPTON PP #3 OS 93 IT 8 OR Y LE 00 02 03 30 30 00 RI Ac VO 37 -0 -0 .0 00 TE ti TH 81 3- 3- 00 01 ve YR 80 20 20 16 AI OX 37 17 17 10 D IN 7 90 PH E AR 50 MA CY MC G #3 TA 93 BL 8 ET PO 62 01 02 52 31 00 RI Ac LY 17 -2 -2 7. 00 TE ti ET 50 6- 4- 00 01 ve HY 44 20 20 0 16 AI LE 23 17 17 85 D NE 1 77 PH AR GL MA YC CY OL #3 33 93 50 8 PO WD AM 00 01 02 30 30 00 RI Ac LO 37 -2 -1 .0 00 TE ti DI 85 4- 7- 00 01 ve PI 20 20 20 16 AI NE 90 17 17 40 D 5 24 PH BE AR SY MA LA CY TE 5 #3 93 MG 8 TA B BY 00 01 02 60 [address] 45 -1 -1 .0 00 TE ti OL 61 8- 7- 00 01 ve IC 42 20 20 16 AI 03 17 17 75 D 20 0 84 PH AR MG MA CY TA BL #3 ET 93 8 DE 64 01 02 30 30 00 RI Ac XI 76 -2 -1 .0 00 TE ti LA 40 0- 7- 00 01 ve NT 17 20 20 15 AI 53 [address] 0 46 PH AR 60 MA CY MG #3 CA 93 PS 8 UL E CL 00 01 02 12 30 00 RI Ac ON 22 -2 -1 0. 00 TE ti ID 82 0- 7- 00 01 ve IN 12 20 20 0 16 AI E 75 17 17 35 D HC 0 08 PH L AR 0. MA 1 CY MG #3 TA 93 BL 8 ET AZ 50 01 02 6. 5 00 RI Ac IT 11 -1 -1 00 00 TE ti HR 10 2- 0- 0 01 ve OM 78 20 20 16 AI YC 76 17 17 65 D IN 6 78 PH AR 25 MA 0 CY MG #3 TA 93 BL 8 ET BE 67 01 02 30 10 00 RI Ac NZ 87 -1 -1 .0 00 TE ti ON 70 2- 0- 00 01 ve AT 10 20 20 16 AI AT 60 17 17 65 D E 1 79 PH 20 AR 0 MA MG CY CA #3 PS 93 UL 8 E VA 00 01 02 15 10 00 RI Ac OM 60 -1 -1 0. 00 TE ti ET 31 2- 0- 00 01 ve GERARDO 58 20 20 0 16 AI ZI 65 17 17 65 D NE 4 80 PH -D AR M MA SY CY RU P #3 93 8 DO 47 01 02 14 7 00 RI Ac XY 78 -1 -1 .0 00 TE ti CY 10 8- 0- 00 01 ve CL 49 20 20 16 AI IN 00 17 17 73 D E 5 80 PH HY AR CL MA AT CY E 10 #3 0 93 MG 8 CA P VA 00 01 02 60 30 00 RI Ac OM 60 -1 -1 .0 00 TE ti ET 35 7- 0- 00 01 ve GERARDO 43 20 20 15 AI ZI 82 17 17 27 D NE 1 67 PH AR 25 MA CY MG #3 TA 93 BL 8 ET LO 00 01 02 30 10 00 RI Ac RA 59 -1 -1 .0 00 TE ti ZE 10 7- 0- 00 01 ve PA 24 20 20 15 AI M 20 17 17 76 D 2 1 38 PH MG AR MA TA CY BL ET #3 93 8 LE 00 01 02 30 30 00 RI Ac VO 37 -0 -0 .0 00 TE ti TH 81 5- 3- 00 01 ve YR 80 20 20 16 AI OX 37 17 17 10 D IN 7 90 PH E AR 50 MA CY MC G #3 TA 93 BL 8 ET ZO 13 01 01 30 30 00 RI Ac LP 66 -0 -2 .0 00 TE ti ID 80 3- 7- 00 01 ve EM 00 20 20 15 AI 80 17 17 76 D TA 1 37 PH RT AR RA MA TE CY 10 #3 93 MG 8 TA BL ET AM 00 12 01 30 30 00 RI Ac LO 37 -2 -2 .0 00 TE ti DI 85 7- 0- 00 01 ve PI 20 20 20 16 AI NE 90 16 17 40 D 5 24 PH BE AR SY MA LA CY TE 5 #3 93 MG 8 TA B DE 64 12 01 30 30 00 RI Ac XI 76 -1 -1 .0 00 TE ti LA 40 9- 3- 00 01 ve NT 17 20 20 15 AI 53 [address] 0 46 PH AR 60 MA CY MG #3 CA 93 PS 8 UL E CL 00 12 01 12 30 00 RI Ac ON 22 -2 -1 0. 00 TE ti ID 82 1- 3- 00 01 ve IN 12 20 20 0 16 AI E 75 16 17 35 D HC 0 08 PH L AR 0. MA 1 CY MG #3 TA 93 BL 8 ET BY 00 12 01 [address] 45 -1 -1 .0 00 TE ti OL 61 9- 3- 00 01 ve IC 42 20 20 15 AI 03 16 17 80 D 20 0 99 PH AR MG MA CY TA BL #3 ET 93 8 VA 00 11 0 No OM 64 -0 ET 11 6- Lo GERARDO 49 20 ng ZI 53 13 er NE 5 Ac 25 ti ve MG /M L AM PU L SO 00 11 0 No DI 40 -0 UM 97 6- Lo 98 20 ng CH 42 13 er LO 0 RI Ac DE ti ve 0. 9% SO ABRAHAM TI ON Sa 63 11 1 No li 80 -0 ne 70 5- Lo 10 20 ng Fl 07 13 er us 5 h Ac 10 ti ML ve Sy ri ng e Sa 63 11 1 No li 80 -0 ne 70 5- Lo 10 20 ng Fl 07 13 er us 5 h Ac 10 ti ML ve Sy ri ng e NI 00 11 0 No TR 28 -0 O- 10 5- Lo BI 32 20 ng D 60 13 er 2% 8 Ac OI ti NT ve ME NT 66 11 0 No PI 55 -0 RI 30 5- Lo N 00 20 ng 32 10 13 er 5 1 MG Ac ti TA ve BL ET Mo 00 11 0 No rp 40 -0 hi 91 5- Lo ne 25 20 ng 83 13 er 4M 0 G/ Ac Ml ti ve Sy ri ng e ON 00 11 0 No DA 64 -0 NS 16 5- Lo ET 08 20 ng RO 02 13 er N 5 HC Ac L ti 4 ve MG /2 ML AL Sa 63 07 0 No li 80 -0 ne 70 9- Lo 10 20 ng Fl 07 13 er us 5 h Ac 10 ti ML ve Sy ri ng e VA 00 07 0 No OM 64 -0 ET 11 9- Lo GERARDO 49 20 ng ZI 53 13 er NE 5 Ac 25 ti ve MG /M L AM PU L Me 00 07 0 No th 00 -0 yl 90 9- Lo pr 19 20 ng ed 00 13 er ni 9 so Ac lo ti ne ve So d [place] cc in a SO 00 07 0 No DI 40 -0 UM 97 9- Lo 98 20 ng CH 42 13 er LO 0 RI Ac DE ti ve 0. 9% SO ABRAHAM TI ON VA 00 02 0 No OM 64 -2 ET 11 2- Lo GERARDO 49 20 ng ZI 53 13 er NE 5 Ac 25 ti ve MG /M L AM PU L SO 00 02 1 No DI 40 -2 UM 97 1- Lo 98 20 ng CH 42 13 er LO 0 RI Ac DE ti ve 0. 9% SO ABRAHAM TI ON VA 00 02 0 No OM 64 -2 ET 11 1- Lo GERARDO 49 20 ng ZI 53 13 er NE 5 Ac 25 ti ve MG /M L AM PU L Sa 63 02 1 No li 80 -2 ne 70 1- Lo 10 20 ng Fl 07 13 er us 5 h Ac 10 ti ML ve Sy ri ng e Immunization Name Date Rout CVX Reac Dose Comm Prov Is Faci e tion ent ider Refu lity Give sed n IIV3 11-0 140 CONOR No BAPT 3-20 H IST VACC 15 JOCELIN HEAL TH PRES MEDI ERVA BIB[place] TIVE GROU P FREE 0.5 ML DOSA GE IM USE Vital Signs 09-21-2013 00:32 Name Value Interpretat Reference Comment ion Range BP 70 mm[Hg] Diastolic BP Systolic 102 mm[Hg] Heart 80 /min Rate/Pulse O2% 99 % Respiratory 18 /min Rate 09-20-2013 23:32 Name Value Interpretat Reference Comment ion Range BP 77 mm[Hg] Diastolic BP Systolic 106 mm[Hg] Heart 84 /min Rate/Pulse O2% 94 % Respiratory 16 /min Rate 05-24-2013 20:56 Name Value Interpretat Reference Comment ion Range Body 98.1 [degF] Temperature BP 72 mm[Hg] Diastolic BP Systolic 118 mm[Hg] Heart 73 /min Rate/Pulse O2% 100 % Respiratory 18 /min Rate 05-24-2013 20:11 Name Value Interpretat Reference Comment ion Range Body 97.7 [degF] Temperature BP 69 mm[Hg] Diastolic BP Systolic 113 mm[Hg] Heart 76 /min Rate/Pulse O2% 98 % Respiratory 20 /min Rate 01-07-2013 01:41 Name Value Interpretat Reference Comment ion Range BP 70 mm[Hg] Diastolic BP Systolic 134 mm[Hg] Heart 86 /min Rate/Pulse O2% 99 % Respiratory 20 /min Rate 01-06-2013 21:23 Name Value Interpretat Reference Comment ion Range BP 71 mm[Hg] Diastolic BP Systolic 169 mm[Hg] Heart 88 /min Rate/Pulse O2% 95 % Respiratory 20 /min Rate Results Labs Lab Lab Date Result Refere Interp Status Commen Order Detail nces retati t Range on COMPREHENSIVE METABOLIC PANEL (09-20-2013 22:45) Glucose 09-20- 98 74-106 complet 013 mg/dL ed Bld-mCn 22:45 c BUN 09-20-2 15 7-18 complet Bld-mCn 013 mg/dL ed c 22:45 Creat 09-20-2 1.4 0.6-1.0 complet SerPl-m 013 mg/dL ed Cnc 22:45 ESTIMAT 09-20-2 73 50-200 complet ED 013 ML/MIN ed CREATIN 22:45 INE CLEARAN CE GFR 09-20- 41 59- complet (ESTIMA 013 ML/MIN ed KARLA) 22:45 Sodium 09-20- 138 136-145 complet SerPl-s 013 mmoL/L ed Cnc 22:45 Potassi 4.2 3.5-5.1 complet um 013 mmoL/L ed SerPl-s 22:45 Cnc Chlorid 103 98-107 complet e 013 mmoL/L ed SerPl-s 22:45 Cnc CO2 26 21.0-32 complet SerPl-s 013 mmoL/L .0 ed Cnc 22:45 Calcium 09-20- 8.6 8.5-10. complet 013 mg/dL 1 ed SerPl-m 22:45 Cnc Prot 09-20-2 7.2 6.4-8.2 complet SerPl-m 013 gm/dL ed Cnc 22:45 Albumin 09-20- 3.8 3.4-5.0 complet 013 gm/dL ed SerPl-m 22:45 Cnc Globuli 09-20-2 3.4 1.3-3.2 complet n 013 gm/dL ed Ser-mCn 22:45 c Albumin 09-20-2 1.1 UNK 1.1-1.8 complet /Glob 013 ed SerPl-m 22:45 Rto Bilirub 09-20-2 0.2 0.2-1.0 complet 013 mg/dL ed SerPl-m 22:45 Cnc AST 09-20-2 12 U/L 15-37 complet SerPl-c 013 ed Cnc 22:45 ALT 09-20-2 33 U/L 30-65 complet SerPl-c 013 ed Cnc 22:45 ALP 09-20-2 84 U/L 50-136 complet SerPl-c 013 ed Cnc 22:45 Amylase SerPl-cCnc (09-20-2013 22:45) Amylase 11-05-2 51 U/L 25-115 complet 013 ed SerPl-c 22:45 Cnc LIPASE (09-20-2013 22:45) LIPASE 11-05-2 318 U/L 73-393 complet 013 ed 22:45 CBC with AUTO DIFF (09-20-2013 22:45) WBC # 11-05-2 8.1 4.8-10. complet Bld 013 K/MM3 8 ed Auto 22:45 RBC # 11-05-2 4.53 4.2-5.4 complet Bld 013 M/mm3 ed Auto 22:45 Hgb 11-05-2 13.9 12.2-16 complet Bld-mCn 013 g/dL .2 ed c 22:45 Hct Fr 05-2 40.7 % 37.0-47 complet Bld 013 .0 ed 22:45 MCV RBC 11-05-2 89.9 fl 82.2-97 complet 013 .8 ed 22:45 MCH RBC 11-05-2 30.7 pg 27-31.2 complet Qn 013 ed Auto 22:45 MEAN 11-05-2 34.2 31.8-35 complet CORPUSC 013 g/dl .4 ed ULAR 22:45 HGB CONC RDW RBC 11-05-2 14.6 % 11.5-17 complet Auto 013 .5 ed 22:45 Platele 11-05-2 232 142-424 complet t Bld 013 K/mm3 ed Ql 22:45 Manual MEAN 11-05-2 8.6 fl 7.4-10. complet PLATELE 013 4 ed T 22:45 VOLUME Granulo -05-2 42.6 % 37.0-80 complet cytes 013 .0 ed Fr Bld 22:45 Auto LYMPH % 11-05-2 48.7 % 10-50.0 complet 013 ed 22:45 Monocyt 11-05-2 4.3 % 1.7-9.3 complet es Fr 013 ed Bld 22:45 Auto Eosinop 11-05-2 3.8 % 0.1-12. complet hil Fr 013 0 ed Bld 22:45 Auto Basophi 11-05-2 0.6 % 0.1-2.0 complet ls Fr 013 ed Bld 22:45 Auto Granulo 09-20-2 3.5 1.8-7.8 complet cytes # 013 K/mm3 ed Bld 22:45 Auto Lymphoc 09-20-2 4.0 0.7-4.5 complet ytes Fr 013 K/mm3 ed Bld 22:45 Auto Monocyt 09-20-2 0.4 0.1-1.0 complet es # 013 K/mm3 ed Bld 22:45 Auto Eosinop 09-20-2 0.3 0.0-0.4 complet hil # 013 K/mm3 ed Bld 22:45 Auto Basophi 05-2 0.1 0-0.2 complet ls # 013 K/MM3 ed Bld 22:45 Auto STREP SCREEN (RAPID) (05-24-2013 20:30) STREP NEGATIV complet SCREEN 013 E ed (RAPID) 20:30 COMPREHENSIVE METABOLIC PANEL (05-24-2013 19:25) Glucose 113 74-106 complet 013 mg/dL ed Bld-mCn 19:25 c BUN 18 7-18 complet Bld-mCn 013 mg/dL ed c 19:25 Creat 0.9 0.6-1.0 complet SerPl-m 013 mg/dL ed Cnc 19:25 ESTIMAT 113 50-200 complet ED 013 ML/MIN ed CREATIN 19:25 INE CLEARAN CE GFR 68 59- complet (ESTIMA 013 ML/MIN ed KARLA) 19:25 Sodium 138 136-145 complet SerPl-s 013 mmoL/L ed Cnc 19:25 Potassi 3.9 3.5-5.1 complet um 013 mmoL/L ed SerPl-s 19:25 Cnc Chlorid 100 98-107 complet e 013 mmoL/L ed SerPl-s 19:25 Cnc CO2 28 21.0-32 complet SerPl-s 013 mmoL/L .0 ed Cnc 19:25 Calcium 8.4 8.5-10. complet 013 mg/dL 1 ed SerPl-m 19:25 Cnc Prot 7.8 6.4-8.2 complet SerPl-m 013 gm/dL ed Cnc 19:25 Albumin 05-24-2 4.1 3.4-5.0 complet 013 gm/dL ed SerPl-m 19:25 Cnc Globuli 05-24-2 3.7 1.3-3.2 complet n 013 gm/dL ed Ser-mCn 19:25 c Albumin 2 1.1 UNK 1.1-1.8 complet /Glob 013 ed SerPl-m 19:25 Rto Bilirub 2 0.5 0.2-1.0 complet 013 mg/dL ed SerPl-m 19:25 Cnc AST 23 U/L 15-37 complet SerPl-c 013 ed Cnc 19:25 ALT 2 39 U/L 30-65 complet SerPl-c 013 ed Cnc 19:25 ALP 93 U/L 50-136 complet SerPl-c 013 ed Cnc 19:25 ESR Bld Qn 15M (05-24-2013 19:25) ESR Bld 05-24-2 24 0-20 complet Qn 15M 013 mm/hr ed 19:25 CBC with AUTO DIFF (05-24-2013 19:20) WBC # 09-2 8.4 4.8-10. complet Bld 013 K/MM3 8 ed Auto 19:20 RBC # 09-2 5.05 4.2-5.4 complet Bld 013 M/mm3 ed Auto 19:20 Hgb 05-24-2 15.9 12.2-16 complet Bld-mCn 013 g/dL .2 ed c 19:20 Hct Fr 46.0 % 37.0-47 complet Bld 013 .0 ed 19:20 MCV RBC 91.0 fl 82.2-97 complet 013 .8 ed 19:20 MCH RBC 05-24-2 31.5 pg 27-31.2 complet Qn 013 ed Auto 19:20 MEAN 34.7 31.8-35 complet CORPUSC 013 g/dl .4 ed ULAR 19:20 HGB CONC RDW RBC 13.6 % 11.5-17 complet Auto 013 .5 ed 19:20 Platele 07-09-2 246 142-424 complet t Bld 013 K/mm3 ed Ql 19:20 Manual MEAN 07-09-2 8.2 fl 7.4-10. complet PLATELE 013 4 ed T 19:20 VOLUME Granulo 07-09-2 56.4 % 37.0-80 complet cytes 013 .0 ed Fr Bld 19:20 Auto LYMPH % 07-09-2 34.3 % 10-50.0 complet 013 ed 19:20 Monocyt 07-09-2 4.8 % 1.7-9.3 complet es Fr 013 ed Bld 19:20 Auto Eosinop 07-09-2 4.0 % 0.1-12. complet hil Fr 013 0 ed Bld 19:20 Auto Basophi 07-09-2 0.5 % 0.1-2.0 complet ls Fr 013 ed Bld 19:20 Auto Granulo 07-09-2 4.8 1.8-7.8 complet cytes # 013 K/mm3 ed Bld 19:20 Auto Lymphoc 07-09-2 2.9 0.7-4.5 complet ytes Fr 013 K/mm3 ed Bld 19:20 Auto Monocyt 07-09-2 0.4 0.1-1.0 complet es # 013 K/mm3 ed Bld 19:20 Auto Eosinop 07-09-2 0.3 0.0-0.4 complet hil # 013 K/mm3 ed Bld 19:20 Auto Basophi 07-09-2 0.0 0-0.2 complet ls # 013 K/MM3 ed Bld 19:20 Auto URINALYSIS/COMPLETE (05-24-2013 19:05) URINE 05-24-2 YELLOW YELLOW complet COLOR 013 ed 19:05 URINE 07--2 CLEAR CLEAR complet APPEARA 013 ed NCE 19:05 URINE --2 NEGATIV NEG complet GLUCOSE 013 E ed - 19:05 DIPSTIC K URINE 05-24-2 NEGATIV NEG complet BILIRUB 013 E ed IN - 19:05 DIPSTIC K URINE --2 NEGATIV NEG complet KETONE 013 E mg/dL ed 19:05 URINE 07-09-2 Greater 1.005-1 complet SPECIFI 013 than .030 ed C 19:05 or GRAVITY equal to 1.030 URINE --2 NEGATIV NEG complet BLOOD 013 E ed 19:05 URINE 07-09-2 5.5 UNK 5.0-8.5 complet PH 013 ed 19:05 URINE NEGATIV NEG complet PROTEIN 013 E mg/dL ed - 19:05 DIPSTIC K URINE 0.2 NEG complet UROBILI 013 E.U./dL ed NOGEN - 19:05 DIPSTIC K URINE NEGATIV NEG complet NITRATE 013 E ed - 19:05 DIPSTIC K URINE NEGATIV NEG complet LEUK 013 E ed ESTERAS 19:05 E URINE OCC 0 complet RBC 013 rbc/hpf ed 19:05 URINE 10-20 0-5 complet SQUAMOU 013 #/hpf ed S CELLS 19:05 URINE 1+ O complet BACTERI 013 ed A 19:05 COMPREHENSIVE METABOLIC PANEL (01-06-2013 22:14) Glucose 89 74-106 complet 013 mg/dL ed Bld-mCn 22:14 c BUN 8 mg/dL 7-18 complet Bld-mCn 013 ed c 22:14 Creat 1.0 0.6-1.0 complet SerPl-m 013 mg/dL ed Cnc 22:14 ESTIMAT 100 50-200 complet ED 013 ML/MIN ed CREATIN 22:14 INE CLEARAN CE GFR 60 59- complet (ESTIMA 013 ML/MIN ed KARLA) 22:14 Sodium 139 136-145 complet SerPl-s 013 mmoL/L ed Cnc 22:14 Potassi 3.8 3.5-5.1 complet um 013 mmoL/L ed SerPl-s 22:14 Cnc Chlorid 101 98-107 complet e 013 mmoL/L ed SerPl-s 22:14 Cnc CO2 28 21.0-32 complet SerPl-s 013 mmoL/L .0 ed Cnc 22:14 Calcium 9.3 8.5-10. complet 013 mg/dL 1 ed SerPl-m 22:14 Cnc Prot 7.1 6.4-8.2 complet SerPl-m 013 gm/dL ed Cnc 22:14 Albumin 01-06-2 3.6 3.4-5.0 complet 013 gm/dL ed SerPl-m 22:14 Cnc Globuli 21-2 3.5 1.3-3.2 complet n 013 gm/dL ed Ser-mCn 22:14 c Albumin 01-06-2 1.0 UNK 1.1-1.8 complet /Glob 013 ed SerPl-m 22:14 Rto Bilirub 01-06-2 0.2 0.2-1.0 complet 013 mg/dL ed SerPl-m 22:14 Cnc AST 22 U/L 15-37 complet SerPl-c 013 ed Cnc 22:14 ALT 01-06-2 40 U/L 30-65 complet SerPl-c 013 ed Cnc 22:14 ALP 01-06-2 92 U/L 50-136 complet SerPl-c 013 ed Cnc 22:14 CBC with AUTO DIFF (01-06-2013 22:14) WBC # 01-06-2 7.5 4.8-10. complet Bld 013 K/MM3 8 ed Auto 22:14 RBC # 01-06-2 4.93 4.2-5.4 complet Bld 013 M/mm3 ed Auto 22:14 Hgb 01-06-2 15.3 12.2-16 complet Bld-mCn 013 g/dL .2 ed c 22:14 Hct Fr 01-06-2 45.8 % 37.0-47 complet Bld 013 .0 ed 22:14 MCV RBC 01-06-2 92.9 fl 82.2-97 complet 013 .8 ed 22:14 MCH RBC 01-06-2 31.0 pg 27-31.2 complet Qn 013 ed Auto 22:14 MEAN 01-06-2 33.3 31.8-35 complet CORPUSC 013 g/dl .4 ed ULAR 22:14 HGB CONC RDW RBC 01-06-2 13.6 % 11.5-17 complet Auto 013 .5 ed 22:14 Platele 01-06-2 218 142-424 complet t Bld 013 K/mm3 ed Ql 22:14 Manual MEAN 01-06-2 8.5 fl 7.4-10. complet PLATELE 013 4 ed T 22:14 VOLUME Granulo 02-21-2 53.8 % 37.0-80 complet cytes 013 .0 ed Fr Bld 22:14 Auto LYMPH % --2 38.1 % 10-50.0 complet 013 ed 22:14 Monocyt --2 5.5 % 1.7-9.3 complet es Fr 013 ed Bld 22:14 Auto Eosinop -21-2 2.1 % 0.1-12. complet hil Fr 013 0 ed Bld 22:14 Auto Basophi -21-2 0.5 % 0.1-2.0 complet ls Fr 013 ed Bld 22:14 Auto Granulo --2 4.0 1.8-7.8 complet cytes # 013 K/mm3 ed Bld 22:14 Auto Lymphoc 01-06-2 2.9 0.7-4.5 complet ytes Fr 013 K/mm3 ed Bld 22:14 Auto Monocyt 01-06-2 0.4 0.1-1.0 complet es # 013 K/mm3 ed Bld 22:14 Auto Eosinop 01-06-2 0.2 0.0-0.4 complet hil # 013 K/mm3 ed Bld 22:14 Auto Basophi 21-2 0.0 0-0.2 complet ls # 013 K/MM3 ed Bld 22:14 Auto URINALYSIS/COMPLETE (01-06-2013 21:37) URINE 01-06-2 YELLOW YELLOW complet COLOR 013 ed 21:37 URINE 01-06-2 CLEAR CLEAR complet APPEARA 013 ed NCE 21:37 URINE 01-06-2 NEGATIV NEG complet GLUCOSE 013 E ed - 21:37 DIPSTIC K URINE 01-06-2 NEGATIV NEG complet BILIRUB 013 E ed IN - 21:37 DIPSTIC K URINE 01-06-2 NEGATIV NEG complet KETONE 013 E mg/dL ed 21:37 URINE 01-06-2 Less 1.005-1 complet SPECIFI 013 than or .030 ed C 21:37 equal GRAVITY to 1.005 URINE 01-06-2 NEGATIV NEG complet BLOOD 013 E ed 21:37 URINE 01-06-2 5.0 UNK 5.0-8.5 complet PH 013 ed 21:37 URINE 01-06-2 NEGATIV NEG complet PROTEIN 013 E mg/dL ed - 21:37 DIPSTIC K URINE 2 0.2 NEG complet UROBILI 013 E.U./dL ed NOGEN - 21:37 DIPSTIC K URINE NEGATIV NEG complet NITRATE 013 E ed - 21:37 DIPSTIC K URINE NEGATIV NEG complet LEUK 013 E ed ESTERAS 21:37 E URINE OCC 0 complet RBC 013 rbc/hpf ed 21:37 URINE OCC O complet WBC 013 wbc/hpf ed 21:37 URINE 2 3-5 0-5 complet SQUAMOU 013 #/hpf ed S CELLS 21:37 Procedures Procedure DOS Code Location Performer Comment LSO [id number] CARDINAL CARDINAL SAGITTAL- 7 [facility] , [facility] CONTRL RIGD ANT POST PANELS IMPLTJ [id number] PAVAN BUBlayne REVJ/RPSG 7 MD ERVIN, PSC ITHCL/EDR L CATH TREE WARDEN W/O PEREZ IMPLTJ/RP 79451 [facility] S[facility] L[facility]T 7 SURGICAL E ITHCL/EDR L DRUG NFS PRGRBL PUMP UNCLASSIF J3490 MEHRAN LAURENT IED DRUGS 7 [facility] INC INC ANES 86056 [facility] 7 ANESTH MUSC & OF THE NRV HEAD BLUE NECK&POST ERIOR TRUNK INFUSION C1772 MEHRAN LAURENT PUMP 7 [facility] PROGRAMMA INC INC BLE BASIC 26387 MEHRAN LAURENT METABOLIC 7 [facility] PANEL INC INC CALCIUM TOTAL BLOOD 63351 MEHRAN LAURENT COUNT 7 [facility] COMPLETE INC INC AUTO&AUTO DIFRNTL WBC DETERMINA 54574 LUDMILA LUDMILA TION 7 REFRACTIV E STATE OPHTH 80593 [facility] 7 XM&EVAL COMPRHNSV ESTAB PT 1/> ARTHROCEN 32084 GRACE CARBAJAL 7 ORTHOPEDI ASPIR&/IN C J MAJOR ASSOCIAT JT/BURSA W/O US COMPUTERI 07504 ALEX SAUCEDO 7 OPHTHALMI C IMAGING RETINA DUP-SCAN 10811 [facility] [place] SCALF XTR VEINS 7 RADIOLOGY UNILATERA L/LIMITED STUDY URNLS DIP 00654 SY[place] CLEVE 7 HEALTH STICK/TAB MEDICAL LET RGNT GROUP NON-AUTO W/O MICRSCP RADEX HIP 36515 AMARILIS PARKS 7 RADIOLOGY [place] ASSOC L WITH PELVIS 2-3 [place] [address] CAROLE ZARCO TRANSVAGI 7 MEDICAL HERRERA NAL SERV FOUNDATIO N FINAL G9638 GRACE SANTIAGO REPORTS 7 MEDICAL W/O DOC IMAGING 1/[place] [address] GRACE SANTIAGO ABDOMEN & 7 MEDICAL PELVIS IMAGING W/CONTRAS ASS T MATERIAL FINAL G9551 GRACE SANTIAGO REPR ABD 7 MEDICAL IMAG STS IMAGING W/O ASS INCIDNT FND LES NTD: CREATININ 09701 MEHRAN LAURENT E BLOOD 7 [facility] INC INC COLLECTIO 71882 MEHRAN LAURENT N VENOUS 7 [facility] [place] [address] MEHRAN LAURENT UREA 7 [facility] NITROGEN INC INC QUANTITAT [place] ANES 63445 [facility] UPPER GI 7 ANESTH ENDOSCOPY OF THE PROXIMAL BLUE TO DUODENUM SLEEP STD 56343 MEHRAN LAURENT AIRFLOW 7 [facility] HRT INC INC RATE&O2 SAT EFFORT UNATT URINE 93705 MEHRAN LAURENT 7 [facility] TEST INC [place] [address] MEHRAN LAURENT HEAD/BRAI 7 [facility] N W/O INC INC CONTRAST MATERIAL FINAL G9638 GRACE SANTIAGO REPORTS 7 MEDICAL W/O DOC IMAGING 1/[place] [address] MEHRAN LAURENT INFUSION 7 [facility] THERAPY/P INC INC ROPHYLAXI S /DX 1ST TO 1 HR URNLS DIP 10569 MEHRAN LAURENT 7 [facility] STICK/TAB INC INC LET REAGENT AUTO MICROSCOP Y THERAPEUT 76825 MEHRAN LAURENT IC 7 [facility] INJECTION INC INC IV PUSH EACH NEW DRUG GLUC BLD 61968 MEHRAN LAURENT GLUC MNTR 7 [facility] DEV INC INC CLEARED FDA SPEC HOME USE NJX 89179 PAVAN BUX DX/THER 7 MD ERVIN, SBST PSC INTRLMNR LMBR/SAC W/IMG GDN ROM 45856 MEHRAN LAURENT CHELSEY&REPR 7 [facility] T EA XTR INC INC EX HAND/EA TRNK SCTJ SPI RHEUMATOI 64559 LAB DEV[facility]DR[facility] LAB DEVENDRA D FACTOR 7 [facility] QUANTITAT HOLDINGS [place] BLOOD 46026 LAB DEVENDRA LAB DEVENDRA COUNT 7 [facility] COMPLETE HOLDINGS HOLDINGS AUTO&AUTO DIFRNTL WBC COMPREHEN 01960 LAB DEV[facility]DR[facility] LAB DEVENDRA SIVE 7 [facility] METABOLIC HOLDINGS HOLDINGS PANEL C-REACTIV 68019 LAB DEVENDRA LAB DEVENDRA E PROTEIN 7 [facility] HOLDINGS HOLDINGS ANTINUCLE 13213 LAB DEVENDRA LAB DEVENDRA AR 7 [facility] ANTIBODIE [place] [address] LAB DEVENDRA LAB DEVENDRA BLOOD/URI 7 [facility] ACID HOLDINGS HOLDINGS CHEMODERV 22885 [facility] SHOFRANCIS-Mt ATE 7 PHYSICIAN OGHADDAM FACIAL/TR S GROUP IGEM/CERV MUSC MIGRAINE BOTULINUM J0585 [facility] ANDREW TOXIN 7 PHYSICIAN OGHADDAM TYPE A S GROUP PER UNIT COLLECTIO 10370 MEHRAN MEHRAN N VENOUS 6 [facility] BLOOD INC INC VENIPUNCT URE IMMUNOASS 32821 MEHRAN LAURENT AY TUMOR 6 [facility] ANTIGEN INC INC QUANTITAT [place] INJECTION 30178 MEHRAN LAURENT 6 [facility] SINGLE/ML INC INC T TRIGGER POINT 1/2 [place] [address] MEHRAN LAURENT TRANSVAGI 6 [facility] NAL INC INC LIPID 86102 LAB DEVENDRA LAB DEVENDRA PANEL 6 MAN[facility] MAN[facility] HOLDINGS HOLDINGS IADNA 74978 [facility] HUMAN 6 LLC ER JR YEE [place] [address] LAB DEVENDRA LAB DEVENDRA THYROXINE 6 [facility] TOTAL HOLDINGS HOLDINGS CYTP C/V 15657 [facility], PICKLESIM AUTO THIN 6 LLC ER JR YEE LYR PREPJ SCR MNL RESCR PHYS COMPREHEN 43842 LAB DEVENDRA LAB DEVENDRA SIVE 6 [facility] METABOLIC [place] [address] LAB DEVENDRA LAB DEVENDRA THYROID 6 [facility] STIMULATI HOLDINGS HOLDINGS NG HORMONE TSH COLLECTIO 30701 MEHRAN LAURENT N VENOUS 6 [facility] [place] [address] MEHRAN LAURENT FREE 6 [facility] [place] [address] MEHRAN LAURENT THYROID 6 [facility] STIMULATI [place] [address] MEHRAN LAURENT TRIIODOTH 6 [facility] YRONINE INC INC T3 FREE BLOOD 55962 MEHRAN LAURENT COUNT 6 [facility] COMPLETE INC INC AUTO&AUTO DIFRNTL WBC IM ADM 45638 MEHRAN LAURENT PRQ ID 6 [facility] SUBQ/IM INC INC NJXS 1 VACCINE SIMPLE 87370 MEHRAN LAURENT REPAIR 6 [facility] SCALP/NEC INC INC K/AX/BLUE T/TRUNK 2.5CM/< LAMNOTMY 08521 [facility] GO INCL 6 W/DCMPRSN ORTHOPAED NRV ROOT ICS PSC 1 INTRSPC LUMBR ANESTHESI 23284 [place] A LUMBAR 6 ANESTHESI JAVI REGION A GROUP NOS PS BOTULINUM J0585 [facility] SHOJAEI-M TOXIN 6 PHYSICIAN OGHADDAM TYPE A S GROUP PER UNIT CHEMODERV 91947 [facility] SHOJAEI-M ATE 6 PHYSICIAN OGHADDAM FACIAL/TR S GROUP IGEM/CERV MUSC MIGRAINE BLOOD 42191 LAB DEVENDRA LAB DEVENDRA COUNT 6 [facility] COMPLETE HOLDINGS HOLDINGS AUTO&AUTO DIFRNTL WBC COMPREHEN 36914 LAB DEV[facility]DRA LAB DEVENDRA SIVE 6 [facility] METABOLIC HOLDINGS HOLDINGS PANEL COLLECTIO 99567 MEHRAN LAURENT N VENOUS 6 [facility] BLOOD INC INC VENIPUNCT URE BLOOD 32327 MEHRAN LAURENT COUNT 6 [facility] COMPLETE INC INC AUTO&AUTO DIFRNTL WBC RADIOLOGI 77563 MEHRAN LAURENT C EXAM 6 [facility] CHEST 2 INC INC VIEWS FRONTAL&L ATERAL ECG 93280 MEHRAN TORRES JR ROUTINE 6 [facility] W/LEAST P 12 LDS I&R ONLY DRUG TST G0477 MEHRAN MEHRAN PRESUMP;C 6 [facility] PBL BEING INC INC READ DC OPT OBV ONLY ECG 74688 MEHRAN LAURENT ROUTINE 6 [facility] ECG INC INC W/LEAST 12 LDS TRCG ONLY W/O I&R BASIC 78153 MEHRAN LAURENT METABOLIC 6 [facility] PANEL INC INC CALCIUM TOTAL INJECTION 70784 MEHRAN LAURENT 6 [facility] SINGLE/ML INC INC T TRIGGER POINT 1/2 MUSCLES MRI 21548 JOSE CARABALLOT TRA SPINAL 6 CANAL ORTHOPAED LUMBAR ICS PSC [place] [address] PAVAN PETERFF CHARMAINE JOINT 6 MD ERVIN, ARTHRGRPH PSC Y&/ANES/S TEROID W/BRENTON INJ PROC G0260 MEHRAN LAURENT SI 6 [facility] JNT;ANES INC INC STEROID&/ TX AGT&ARTHR OGRPH RADEX HIP 62718 JOSE CARABALLOT 6 [place] ORTHOPAED L WITH ICS PSC PELVIS 1 VIEW DRUG TST G0477 MEHRAN LAURENT PRESUMP;C 6 [facility]OSP PBL BEING INC INC READ DC OPT OBV ONLY INJECTION J1885 MEHRAN DE LA O 6 [facility] INE PER 15 MG INJECTION J1040 MEHRAN DE LA O 6 [facility] DNISOLONE ACETATE 80 MG THERAPEUT 95124 MEHRAN DE LA O IC 6 [facility] TIC/DX INJECTION SUBQ/IM SENSORMOT 35519 [place] OR XM 6 MEDICAL MEDICAL W/FIELD KILN BURNER SERV SERV CHELSEY FOUNDATIO FOUNDATIO OCULAR N N DEVIJ W/I&R SPX COMPUTERI 52989 CAROLE ESCAMILLA ZED 6 MEDICAL PAD OPHTHALMI SERV C IMAGING FOUNDATIO RETINA N CHEMODERV 68692 SY[place] TOÑITO ATE 6 [facility] FACIAL/TR MEDICAL IGEM/CERV GROUP MUSC MIGRAINE BOTULINUM J0585 [facility] TOÑITO TOXIN 6 [facility] TYPE A MEDICAL PER UNIT GROUP COMPUTER- 08341 [place] [facility] AIDED 6 MEDICAL JANET DETECTION IMAGING ASS SCREENING MAMMOGRAP HY SCREENING G0202 [place] ALYCE 6 MEDICAL JANET MAMMOGRAP IMAGING HY JOSELIN ASS INCL CAD WHEN PERFORMD DXA BONE 13486 [place] [facility] DENSITY 6 MEDICAL JANET STUDY 1/> IMAGING SITES ASS AXIAL [facility] G[address] [facility] ASSESS & MGMT PT THERAPEUT 97683 MEHRAN DE LA O IC 6 [facility] TIC/DX INJECTION SUBQ/IM INJECTION J1885 MEHRAN DE LA O [address] [place] [address] TROMETHAM INE PER 15 MG INJECTION J1040 MEHRAN DE LA O [address] [place] [address] DNISOLONE ACETATE 80 MG INJECTION J1885 SY[place] MORRIN [address] [place] [address] [facility] TROMETHAM INE PER 15 MG THERAPEUT 74761 JUDD RODRIGUES IC [address] [place] [address] PROPHYLAC MEDICAL TIC/DX GROUP INJECTION SUBQ/IM CYANOCOBA 04360 LAB DEVENDRA LAB DEVENDRA DAVID 6 [facility] VITAMIN HOLDINGS HOLDINGS B-12 25 42803 LAB DEVENDRA LAB DEVENDRA HYDROXY 6 [facility] INCLUDES HOLDINGS HOLDINGS FRACTIONS IF PERFORMED MICROSOMA 13715 LAB DEVENDRA LAB DEVENDRA L 6 [facility] ANTIBODIE HOLDINGS HOLDINGS S EACH BLOOD 86016 LAB DEVENDRA LAB DEVENDRA COUNT 6 [facility] COMPLETE HOLDINGS HOLDINGS AUTO&AUTO DIFRNTL WBC IRON 17724 LAB DEV[facility]DRA LAB DEVENDRA BINDING 6 [facility] [place] [address] LAB DEVENDRA LAB DEVENDRA THYROXINE 6 [facility] [place] [address] LAB DEVENDRA LAB DEVENDRA TRIIODOTH 6 [facility] YRONINE HOLDINGS HOLDINGS T3 TOTAL TT3 COMPREHEN 94546 LAB DEVENDRA LAB DEVENDRA SIVE 6 [facility] METABOLIC [place] [address] LAB DEVENDRA LAB DEVENDRA IRON 6 [facility] [place] [address] LAB DEVENDRA LAB DEVENDRA FOLIC 6 [facility] [place] [address] LAB DEVENDRA LAB DEVENDRA THYROID 6 [facility] STIMULATI HOLDINGS HOLDINGS NG HORMONE TSH INJECTION J1030 MEHRAN LAURENT 6 [facility] METHYLPRE INC INC DNISOLONE ACETATE 40 [place] NJX [address] PAVAN DURON CRI DX/THER 6 MD ERVIN, SBST PSC EPIDURAL/ SUBARACH LUMBAR/SA CRAL LOCM Q9967 MEHRAN LAURENT [phone] 6 [facility] MG/ML INC INC IODINE CONCENTRA TION PER ML HOSPITAL G0463 MEHRAN LAURENT OUTPATIEN 6 [facility] T CLIN INC INC VISIT ASSESS & MGMT PT THERAPEUT 67380 SY[place]GUE LIZETTRIN IC 6 [facility] PROPHYLAC MEDICAL TIC/DX GROUP INJECTION SUBQ/IM INJECTION J3301 [facility] MORRIN 6 [facility] TRIAMCINO MEDICAL LONE GROUP [place] [address] [place] [address] [place] [facility] CERVICAL 6 MEDICAL JANET SPINE W/[place] [address] [place] [facility] HEAD/BRAI 6 MEDICAL JANET N W/O IMAGING CONTRAST ASS MATERIAL RADEX HIP 14881 [place] BEINEKE 6 MEDICAL UNILATERA IMAGING L WITH ASS PELVIS 2-3 VIEWS CHEMODERV 51069 SY[place]GO[place]UE TOÑITO ATE 6 [facility] FACIAL/TR MEDICAL IGEM/CERV GROUP MUSC MIGRAINE BOTULINUM J0585 [facility] TOÑITO TOXIN 6 [facility] TYPE A MEDICAL PER UNIT GROUP OPHTH 74671 [facility] 6 GRE GRE XM&EVAL COMPRE NEW PT 1/> VST LIPID 73023 LAB DEVENDRA LAB DEVENDRA PANEL 6 [facility] HOLDINGS BLOOD 32069 LAB DEVENDRA LAB DEVENDRA COUNT 6 [facility] COMPLETE HOLDINGS HOLDINGS AUTO&[place] [address] LAB DEVENDRA LAB DEVENDRA THYROID 6 [facility] STIMULATI HOLDINGS HOLDINGS NG HORMONE TSH COMPREHEN 87021 LAB DEVENDRA LAB DEVENDRA SIVE 6 [facility] METABOLIC HOLDINGS HOLDINGS PANEL PRESSURIZ 33784 MEHRAN LAURENT ED/NONPRE 6 [facility] SSURIZED INC INC INHALATIO N TREATMENT INJECTION J1040 MEHRAN SHARMA 5 [facility] DNISOLONE ACETATE 80 MG INJECTION J0696 MEHRAN SHARMA 5 [facility] NE SODIUM PER 250 MG THERAPEUT 40880 MEHRAN SHARMA IC 5 [facility] TIC/DX INJECTION SUBQ/IM CHEMODERV 42058 SYNAGOGUE TOÑITO ATE 5 [facility] FACIAL/TR MEDICAL IGEM/CERV GROUP MUSC MIGRAINE BOTULINUM J0585 [place] TOÑITO TOXIN 5 [facility] TYPE A MEDICAL PER UNIT GROUP OBSERVATI 55298 [facility] 5 PHYSICIAN FEDE DISCHARGE S GROUP [facility] G0378 MEHRAN LAURENT OBSERVATI 5 [facility] ON INC INC SERVICE PER HOUR COLLECTIO 75888 MEHRAN LAURENT N VENOUS 5 [facility] BLOOD INC INC VENIPUNCT URE ECHO 93121 [facility] 5 MEDICAL GABRIEL 2D SERV W/WOM-MOD FOUNDATIO E COMPL N SPEC&COLR D INITIAL 24729 [facility] 5 CULAR MAT CARE/DAY CONSULTAN 50 [place] [address] MEHRAN LAURENT TROPONIN 5 [facility] QUANTITAT INC INC [place] BLOOD 45980 MEHRAN LAURENT COUNT 5 [facility] COMPLETE INC INC AUTO&AUTO DIFRNTL WBC NONINVASI 35662 MEHRAN LAURENT VE 5 [facility] EAR/PULSE INC INC OXIMETRY SINGLE DETER CREATINE 83307 MEHRAN LAURENT KINASE 5 [facility] TOTAL INC INC COMPREHEN 74143 MEHRAN LAURENT SIVE 5 [facility] METABOLIC INC INC PANEL CREATINE 35807 MEHRAN LAURENT KINASE MB 5 [facility] FRACTION INC INC ONLY CREATINE 38525 MEHRAN LAURENT KINASE MB 5 [facility] FRACTION INC INC ONLY COMPREHEN 88969 MEHRAN LAURENT SIVE 5 [facility] METABOLIC INC INC PANEL LOCM Q9967 MEHRAN LAURENT [phone] 5 [facility] MG/ML INC INC IODINE CONCENTRA TION PER ML RADIOLOGI 56124 MEHRAN LAURENT C 5 [facility] EXAMINATI INC INC ON CHEST SINGLE VIEW FRONTAL ECG 44239 MEHRAN LAURENT ROUTINE 5 [facility] ECG INC INC W/LEAST 12 LDS TRCG ONLY W/O I&R URINE 26684 MEHRAN LAURENT 5 [facility] TEST INC INC VISUAL COLOR CMPRSN METHS CREATINE 10339 MEHRAN LAURENT KINASE 5 [facility] TOTAL INC INC FIBRIN 41684 MEHRAN LAURENT DGRADJ 5 [facility] PRODUCTS INC INC D-DIMER QUAL/SEMI TACO THER 13447 MEHRAN LAURENT PROPH/DX 5 [facility] NJX IV INC INC PUSH SINGLE/1S T SBST/DRUG THERAPEUT 57921 MEHRAN LAURENT IC 5 [facility] INJECTION INC [place] [address] MEHRAN LAURENT TROPONIN 5 [facility] QUANTITAT INC INC [place] URNLS DIP 81982 MEHRAN LAURENT 5 [facility] STICK/TAB INC INC LET REAGENT AUTO MICROSCOP Y NONINVASI 48848 MEHRAN LAURENT VE 5 [facility] EAR/PULSE INC INC OXIMETRY SINGLE DETER HEMOGLOBI 53125 MEHRAN LAURENT N 5 [facility] GLYCOSYLA INC INC KARLA A1C BLOOD 23368 MEHRANZOYA LAURENT COUNT 5 [facility] COMPLETE INC INC AUTO&AUTO DIFRNTL WBC COLLECTIO 06135 MEHRAN LAURENT N VENOUS 5 [facility] [place] [address] MEHRAN HEON ANGIOGRAP 5 [facility] HY CHEST INC INC W/CONTRAS T/NONCONT RAST ECG 70004 MEHRAN TORRES JR ROUTINE 5 [facility] W/LEAST P 12 LDS I&R ONLY HOSPITAL G0378 MEHRAN MEHRAN OBSERVATI 5 [facility] ON INC INC SERVICE PER HOUR INITIAL 87791 [facility] J[facility] OBSERVATI 5 PHYSICIAN FEDE ON S GROUP CARE/DAY 50 MINUTES IM ADM 29332 JUDD YUI PRQ ID 5 HEALTH SUBQ/IM MEDICAL NJXS 1 GROUP VACCINE IIV3 VACC 35266 JUDD PARKS JOCELIN 5 HEALTH PRESERVAT MEDICAL [place] FREE GROUP 0.5 ML DOSAGE IM USE THERAPEUT [address] IC 5 [facility] TIC/DX INJECTION SUBQ/IM INJECTION J10[address] 5 [facility] DNISOLONE ACETATE 40 MG RADEX 92308 MEHRAN LAURENT SPINE 5 [facility]OS[facility] LUMBOSACR INC INC AL MINIMUM 4 VIEWS BOTULINUM J0585 [facility] TOÑITO TOXIN 5 [facility] TYPE A MEDICAL PER UNIT GROUP CHEMODERV 74805 SY[place] TOÑITO ATE 5 [facility] FACIAL/TR MEDICAL IGEM/CERV GROUP MUSC MIGRAINE INJECTION J1885 [facility] MORRIN 5 [facility] TROMETHAM INE PER 15 MG CULTURE 02904 LAB DEVENDRA LAB DEVENDRA BACTERIAL 5 [facility] HOLDINGS QUANTTATI VE COLONY COUNT URINE INJECTION J3301 SY[facility]UE MORRIN 5 [facility] TRIAMCINO MEDICAL LONE GROUP ACETONIDE NOS 10 MG INJECTION J1885 JUDD PARKS JOCELIN 5 [facility]ALTH [facility] TROMETHAM INE PER 15 MG CUL BACT 88614 LAB DEVENDRA LAB DEVENDRA AEROBIC 5 [facility] ADDL HOLDINGS HOLDINGS METHS DEFINITIV E EA ISOL CULTURE 63373 LAB DEVENDRA LAB DEVENDRA BCT 5 [facility] ISOL&PRSM HOLDINGS HOLDINGS PTV ID ISOLATE EA URINE CULTURE 70582 LAB DEVENDRA LAB DEVENDRA BACTERIAL 5 [facility] HOLDINGS HOLDINGS QUANTTATI VE COLONY COUNT URINE SUSCEPTIB 21164 LAB DEVENDRA LAB DEVENDRA LTY STDY 5 [facility] ANTIMICRB HOLDINGS HOLDINGS IAL MICRO/AGA R DILUTJ MRI 66387 MEHRAN MEHRAN SPINAL 5 [facility] CANAL INC INC LUMBAR W/O CONTRAST MATERIAL 3D 06890 MEHRAN HEON RENDERING 5 [facility] W/INTERP INC INC & POSTPROCE SS SUPERVISI ON OPHTH 35769 [facility] JOHNSON MEDICAL 5 MEDICAL CLA XM&EVAL SERV INTERMEDI FOUNDATIO ATE ESTAB N PT INJECTION J2550 [facility] 5 Y Y [facility] INE HCL UP TO [address] [place] [address] [facility] TROPONIN 5 [facility] QUANTITAT HOSP HOSP [place] ECG 32729 [place] SUSAN ROUTINE 5 MEDICAL ECG SERV W/LEAST FOUNDATIO 12 LDS N I&R ONLY RADIOLOGI 77954 [facility] C 5 Y Y [facility] ON CHEST SINGLE VIEW FRONTAL THROMBOPL 43618 [facility] ASTIN 5 Y Y TIME [facility] PARTIAL PLASMA/WH OLE BLOOD BASIC 83996 [facility] METABOLIC 5 Y Y [facility] CALCIUM TOTAL ECG 73873 [facility] ROUTINE 5 [facility] ECG HOSP HOSP W/LEAST 12 LDS TRCG ONLY W/O I&R BLOOD 95613 [facility] COUNT 5 Y Y [facility] AUTOMATED PROTHROMB 77585 [facility] IN TIME 5 Y Y [facility] THER 42444 [facility] PROPH/DX 5 Y Y NJX [facility] PUSH SINGLE/1S T SBST/DRUG GROUND A0425 MERCURY MERCURY MILEAGE 5 AMBULANCE AMBULANCE PER SERV LEAD MATERIAL HANDLER SERV LEAD MATERIAL HANDLER STATUTE R R MILE COLLECTIO 69634 [facility] N VENOUS 5 [facility] BLOOD HOSP HOSP VENIPUNCT URE INJECTION J2550 [facility]EN[facility]AL 5 [facility] PROMETHAZ HOSP HOSP INE HCL UP TO 50 MG NONINVASI 98026 [facility] VE 5 [facility] EAR/PULSE HOSP HOSP [place] [address] [facility] AMYLASE 5 [facility]P HOSP COMPREHEN 04587 [facility] SIVE 5 [facility] METABOLIC HOSP HOSP PANEL ECG 30281 [facility] ROUTINE 5 [facility] [facility] ECG HOSP HOSP W/LEAST 12 LDS TRCG ONLY W/O I&R PROTHROMB 85482 [facility] IN TIME 5 [facility] HOSP FIBRIN 50761 [facility] DGRADJ 5 [facility] PRODUCTS HOSP HOSP D-[place] [address] [facility] LIPASE 5 [facility] HOSP INJECTION J2270 [facility] MORPHINE 5 [facility] SULFATE HOSP HOSP UP TO 10 MG BLOOD 81623 [facility] COUNT 5 [facility] COMPLETE HOSP HOSP AUTO&[place] [address] [facility] TROPONIN 5 [place] [facility] QUANTITAT HOSP HOSP [place] NATRIURET 16604 CENTRAL CENTRAL IC 5 [facility] PEPTIDE HOSP HOSP THERAPEUT 16752 C[facility]ENTRAL IC 5 [facility] INJECTION HOSP [place] [address] CENTRAL [facility]TR[facility] INFUSION 5 [facility] THERAPY/P HOSP HOSP ROPHYLAXI S /DX 1ST TO 1 HR GROUND A0425 [facility] MILEAGE 5 AMBULANCE AMBULANCE PER SERVICE SERVICE STATUTE MILE RADIOLOGI 40224 [facility] C 5 [place] EXAMINATI HOSP HOSP ON CHEST SINGLE VIEW FRONTAL THROMBOPL 67422 [facility] ASTIN 5 [place] TIME [facility]OSP HOSP PARTIAL PLASMA/WH OLE BLOOD AMB A0427 [facility] SERVICE 5 AMBULANCE AMBULANCE ALS SERVICE SERVICE EMERGENCY TRANSPORT LEVEL 1 CRITICAL 43037 [facility] CARE 5 EMERGENCY ILL/INJUR PHYS PSC ED PATIENT INIT 30-74 [place] NFS 61736 [facility] THERAPY 5 [place] PROPHYLAX [facility]P HOSP IS/DX CONCURREN T NFS THER 68970 [facility] PROPH/DX 5 [place] NJX EA [facility] HOSP SEQL [place] SBST/[place] [address] [facility] INFUSION 5 [place] THERAPY [facility] HOSP PROPHYLAX IS/DX EA HOUR INJECTION J1885 JUDD PARKS JOCELIN 5 [facility] TROMETHAM INE PER 15 MG THERAPEUT 77008 [place] SMITH JOCELIN IC 5 HEALTH PROPHYLAC MEDICAL TIC/DX GROUP INJECTION SUBQ/IM DETERMINA 33703 [place] MICHAEL TION 5 MEDICAL MEGAN REFRACTIV SERV E STATE FOUNDATIO N OPHTH 47457 [facility] MEDICAL 5 MEDICAL MEGAN XM&EVAL SERV COMPRHNSV FOUNDATIO ESTAB PT N 1/> CHEMODERV 64130 [place] TOÑITO ATE 5 HEALTH [facility] FACIAL/TR MEDICAL IGEM/CERV GROUP [facility] MIGRAINE DIAGNOSTI G0206 [facility] C 5 [facility] MAMMOGRAP INC INC HY INCL CAD [place]; [place] [address] [facility] INFUSION 5 [facility] THERAPY INC INC PROPHYLAX IS/[place] [address] [facility], PICKLESIM SURG [facility] ER JR YEE PATHOLOGY GROSS&[place] [address] [facility] INFUSION 5 [facility] THERAPY/P INC INC ROPHYLAXI S /DX 1ST TO 1 HR EGD 53635 [facility] TRANSORAL 5 [facility] BIOPSY INC INC SINGLE/MU LTIPLE SPECIAL 32585 [facility], PICKLESIM STAIN 5 [facility] ER JR YEE GROUP 1 MICROORGA NISMS I&R CUL 56217 [facility] PRSMPTV 5 [facility] PTHGNC INC INC ORGANISMS SCR DNS CHART BLOOD 34494 [facility] MEHRAN COUNT 5 [facility] COMPLETE INC INC AUTO&AUTO DIFRNTL WBC 25 64145 [facility] HYDROXY 5 [facility] INCLUDES [place] [address] [facility] HEON THYROID 5 [facility] STIMULATI INC INC NG HORMONE TSH COMPREHEN 84162 [facility] SIVE 5 [facility] METABOLIC INC INC PANEL COLLECTIO 27506 [facility] LAUR[facility] N VENOUS 5 [facility] BLOOD INC INC VENIPUNCT URE CHEMODERV 76336 [place] TOÑITO ATE 5 [facility]ALTH [facility] FACIAL/TR MEDICAL IGEM/CERV GROUP [facility]IOLOG[place] [address] [place] CORNELIUS C 4 MEDICAL KOLBY EXAMINATI IMAGING ON CHEST ASS SINGLE VIEW FRONTAL ECG 20925 [facility] LAURENT ROUTINE 4 [facility] ECG INC INC W/LEAST 12 LDS TRCG ONLY W/O I&R CREATINE 35859 [facility] LAURENT KINASE 4 [facility] TOTAL INC INC ECG 79047 [facility] DENT ROUTINE 4 [facility] W/LEAST P 12 LDS I&R ONLY BLOOD 82332 [facility] LAURENT COUNT 4 [facility] COMPLETE INC INC AUTO&AUTO DIFRNTL WBC URNLS DIP 56461 [facility] LAURENT 4 [facility] STICK/TAB INC INC [place] [address] MEHR[facility] LAURENT TROPONIN 4 [facility] QUANTITAT INC INC [place] CREATINE 93583 [facility] LAURENT KINASE MB 4 [facility] FRACTION INC INC ONLY COMPREHEN 31362 [facility] LAURENT SIVE 4 [facility] METABOLIC INC INC PANEL US BREAST 79740 [facility] REAL 4 MEDICAL JANET TIME IMAGING W/IMAGE ASS DOCUMENTA TION DIAGNOSTI G0206 [place] ALYCE C 4 MEDICAL JANET MAMMOGRAP IMAGING HY INCL ASS CAD WHEN PERF; UNI SWALLOWIN 08680 [facility] G FUNCJ 4 [place] W/[facility] IOGRAPY/V IDRADIOG [facility]- 70510 [facility] AIDED 4 MEDICAL KOLBY DETECTION IMAGING ASS SCREENING MAMMOGRAP HY SCREENING G0202 [facility] PARE[facility] 4 MEDICAL KOLBY MAMMOGRAP IMAGING HY JOSELIN ASS INCL CAD WHEN PERFORMD GASTRIC 45974 [facility] LAURENT EMPTYING 4 [facility] IMAGING INC INC STUDY TECHNETIU A9541 MEHR[facility] LAURENT M TC-99M 4 [facility] SULFUR INC INC COLLOID DX UP TO 20 MCI LARYNGOSC 88923 [facility] VJ JOHNSON 4 PHYSICIAN AUGUSTINE FLEXIBLE S GROUP DIAGNOSTI C INJECTION 63176 [place] TOÑITO 4 NEUROLOGY MAURICE SINGLE/ML CENTER T TRIGGER KORINA POINT 3/> MUSCLES INJECTION J1030 [place] TOÑITO 4 NEUROLOGY MAURICE METHYLPRE CENTER DNISOLONE [place] ACETATE 40 MG INJECTION 36727 [place] TOÑITO 4 NEUROLOGY MAURICE ANESTHETI CENTER C AGENT [place] [address] P&C LABS, GARCIA SURG 4 [facility] PATHOLOGY GROSS&FEDE ROSCOPIC EXAM EGD 36655 [facility] SUJATHA SHAH TRANSORAL 4 PHYSICIAN MILY BIOPSY S GROUP SINGLE/[place] [address] MEHRAN LAURENT HPYLORI 4 [facility] HOSP INC INC SPECIAL 35049 P&C LABS, GARCIA STAIN 4 [facility] GROUP 1 MICROORGA NISMS I&R INJECTION J1100 [place] TOÑITO 4 NEUROLOGY MAURICE DEXAMETHO CENTER SONE [place] SODIUM PHOSPHATE 1 MG ARTHROCEN 30332 [place] TOÑITO TESIS 4 NEUROLOGY MAURICE ASPIR&/IN CENTER J MAJOR KORINA JT/BURSA W/[place] [address] GRACE PAREKH TRANSVAGI 4 [place]ICAL [place] [address] LABORATOR LABORATOR FERRITIN 4 Y Y CORPORATI CORPORATI ON OF AM ON OF AM 25 09-22-201 25973 LABORATOR LABORATOR HYDROXY 4 Y Y INCLUDES CORPORATI CORPORATI FRACTIONS ON OF AM ON OF AM IF PERFORMED LIPID 60248 LABORATOR LABORATOR PANEL 4 Y Y CORPORATI CORPORATI ON OF AM ON OF AM GENERAL 29046 LABORATOR LABORATOR HEALTH 4 Y Y PANEL CORPORATI CORPORATI ON OF AM ON OF AM CYTP 67867 LABORATOR LABORATOR CERV/VAG 4 Y DEVENDRA OF Y DEVENDRA OF AUTO THIN MANISH MANISH [place] [address] LABORATOR LABORATOR IRON 4 Y Y CORPORATI CORPORATI ON OF AM ON OF AM THERAPEUT 38062 [place] CALLUM IC 4 [facility] TIC/DX GROUP INJECTION SUBQ/IM INJECTION J3301 [place] CALLUM 4 [facility] TRIAMCINO MEDICAL LONE GROUP ACETONIDE NOS 10 MG TENS E0720 EMPI INC EMPI INC DEVICE 4 TWO LEAD LOCALIZED STIMULATI ON TENS E0730 EMPI INC EMPI INC DEVICE 4 4/MORE LEADS MULTI NERVE STIMULATI ON INJECTION J3301 CALLUM CALLUM 4 [facility] TRIAMCINO LONE ACETONIDE NOS 10 MG CYANOCOBA 26646 LAB DEVENDRA LAB DEVENDRA DAVID 4 MANISH MANISH VITAMIN HOLDINGS HOLDINGS B-12 25 40644 LAB DEVENDRA LAB DEVENDRA HYDROXY 4 MANISH MANISH INCLUDES HOLDINGS [place] [address] LAB DEVENDRA LAB DEVENDRA TRIIODOTH 4 MANISH MANISH YRONINE HOLDINGS HOLDINGS T3 FREE HEMOGLOBI 59970 LAB DEVENDRA LAB DEVENDRA N 4 MANISH MANISH GLYCOSYLA HOLDINGS HOLDINGS KARLA A1C THERAPEUT 26072 CALLUM CALLUM IC 4 [facility] PROPHYLAC TIC/DX INJECTION SUBQ/[place] [address] LAB DEVENDRA LAB DEVENDRA IRON 4 [place] [address] LAB DEVENDRA LAB DEVENDRA FREE 4 MANISH MANISH [place]RO[place] [address] LAB DEVENDRA LAB DEVENDRA THYROID 4 MANISH MANISH STIMULATI HOLDINGS HOLDINGS NG HORMONE TSH CULTURE 36089 LAB DEVENDRA LAB DEVENDRA BACTERIAL 4 [facility] HOLDINGS HOLDINGS QUANTTATI VE COLONY COUNT URINE INJ J0702 FAYE MCKINNEY BETAMETHA 4 MAX MAX SONE ACETATE & PHOSPHATE 3 MG PHYSICAL 95832 [facility] CENTRAL THERAPY 4 [place] EVALUATIO HOSP HOSP N TENS E0730 EMPI INC EMPI INC DEVICE 4 4/MORE LEADS MULTI NERVE STIMULATI ON THERAPEUT 34225 CROSSFIEL CROSSFIEL IC PX 1/> 4 D KOLBY D KOLBY AREAS EACH 15 MIN EXERCISES MANUAL 87418 CROSSFIEL CROSSFIEL THERAPY 4 D KOLBY D KOLBY TQS 1/> REGIONS EACH 15 MINUTES MANUAL 59030 CROSSFIEL CROSSFIEL THERAPY 4 D KOLBY D KOLBY TQS 1/> REGIONS EACH 15 MINUTES THERAPEUT 23922 CROSSFIEL CROSSFIEL IC PX 1/> 4 D KOLBY D KOLBY AREAS EACH 15 MIN EXERCISES THERAPEUT 65615 CROSSFIEL CROSSFIEL IC PX 1/> 4 D KOLBY D KOLBY AREAS EACH 15 MIN EXERCISES MANUAL 91199 CROSSFIEL CROSSFIEL THERAPY 4 D KOLBY D KOLBY TQS 1/> REGIONS EACH 15 MINUTES MANUAL 32003 CROSSFIEL CROSSFIEL THERAPY 4 D KOLBY D KOLBY TQS 1/> REGIONS EACH 15 MINUTES MANUAL 90817 CROSSFIEL CROSSFIEL THERAPY 4 D KOLBY D KOLBY TQS 1/> REGIONS EACH 15 MINUTES MANUAL 65236 CROSSFIEL CROSSFIEL THERAPY 4 D KOLBY D KOLBY TQS 1/> REGIONS EACH 15 MINUTES MANUAL 16754 CROSSFIEL CROSSFIEL THERAPY 4 D KOLBY D KOLBY TQS 1/> REGIONS EACH 15 MINUTES PHYSICAL 46687 PROFESSIO CROSSFIEL THERAPY 4 NAL REHAB D KOLBY EVALUATIO ASSOC N PSC DRUG SCR G0434 MARII HAM MARII HAM NOT 4 CHROMATOG RAPHIC; ANY NUMBER PT ENC MRI 80577 ALYCE ALYCE SPINAL 4 JANET JANET CANAL LUMBAR W/O CONTRAST MATERIAL MRI 30537 MEHRAN MEHRAN SPINAL 4 [facility] CANAL INC INC CERVICAL W/O CONTRAST MATRL 3D 92834 MEHRAN LAURENT RENDERING 4 [facility] W/INTERP INC INC & [place] [address] MEHRAN LAURENT VANILLYLM 4 [facility] ANDELIC INC INC ACID URINE METANEPHR 66118 MEHRAN LAURENT PHIL 4 [place] [address] MEHRAN LAURENT HYDROXYIN 4 [facility] DOLACETIC [place] ACID 5-[place] [address] MEHRAN LAURENT TRANSVAGI 4 [facility] [place] [address] MEHRAN LAURENT ALDOSTERO 4 [facility] NE INC INC INJ J0702 FAYE MCKINNEY BETAMETHA 4 MAX MAX SONE ACETATE & PHOSPHATE 3 MG INJECTION J3301 CALLUM VILLARREALIAM 4 I WHI TRIAMCINO LONE ACETONIDE NOS 10 MG THERAPEUT 50213 CALLUM NOLEN IC 4 I WHI PROPHYLAC TIC/DX INJECTION SUBQ/IM ECG 46987 [facility] CENTRAL ROUTINE 3 [place] ECG HOSP HOSP W/LEAST 12 LDS TRCG ONLY W/O I&R PROTHROMB 63434 [facility] IN TIME 3 [place] [facility] [place] [address] CENTRAL CENTR[facility] LIPASE 3 [place] [address] [facility] AMYLASE 3 [place] [facility] REG BOARD COMPREHEN 91814 CEN[facility] SIVE 3 [place] METABOLIC HOSP HOSP PANEL COLLECTIO 00786 [facility]AL CENTRAL N VENOUS 3 [place] BLOOD HOSP HOSP VENIPUNCT URE BLOOD 87251 [facility] CENTR[facility] COUNT 3 [place] COMPLETE HOSP HOSP AUTO&[place] [address] C[facility]AL CENTRAL TROPONIN 3 [place] QUANTITAT HOSP HOSP CLIFTON NATRIURET 50716 CENTRAL CENTRAL IC 3 [place] PEPTIDE HOSP HOSP RADIOLOGI 64363 [facility] CENTRAL C 3 [place] EXAMINATI HOSP HOSP ON CHEST SINGLE VIEW FRONTAL THROMBOPL 23904 [facility] ASTIN 3 [place] [facility] MR TIME HOSP REG BOARD PARTIAL PLASMA/[place] [address] [facility] ANGIOGRAP 3 RADIOLOGY RADIOLOGY HY CHEST ASSOC ASSOC W/CONTRAS T/NONCONT RAST AMB A0427 [facility] SERVICE 3 MIKHAIL ELIZONDO ALS CO EMS CO EMS EMERGENCY TRANSPORT LEVEL [address] [facility] MILEA 3 MIKHAIL ELIZONDO PER CO EMS CO EMS STATUTE MILE Encounters Encounter Start End Date Code Location Performer Type Date OFFICE 63670 MEHRAN OUTPATIEN 7 7 [facility] T VISIT INC 10 MINUTES OFFICE 78982 LUDMILA KEYS OUTPATIEN 7 7 T VISIT 15 MINUTES [facility] MEHRAN - 7 7 [facility] OUTPATIEN INC [facility] MEHRAN - 7 7 [facility] OUTPATIEN INC [facility] MEHRAN - 7 7 [facility] OUTPATIEN INC T OFFICE 41856 GRACE RODRIGUEZ OUTPATIEN 7 7 ORTHOPEDI T NEW 45 C MINUTES ASSOCIAT OFFICE 13639 ALEX JOHNSON OUTPATIEN 7 7 T VISIT 15 MINUTES OFFICE 69526 [facility] CONSULTAT 7 7 N ION NEUROLOGY NEW/ESTAB PATIENT 60 MIN OFFICE 19213 [place] CLEVE OUTPATIEN 7 7 HEALTH T VISIT MEDICAL 25 GROUP MINUTES [facility] - 7 7 N OUTPATIEN COMMUNTIY T HOSPITA OFFICE 55591 [place] CLEVE OUTPATIEN 7 7 HEALTH T VISIT MEDICAL 25 GROUP MINUTES HOSPITAL MEHRAN - 7 7 [facility] OUTPATIEN INC T OFFICE 87467 MEHRAN OUTPATIEN 7 7 [facility] T VISIT INC 10 MINUTES [facility]OSPITAL MEHR[facility] - 7 7 [facility] OUTPATIEN INC T OFFICE 25548 MEHRAN OUTPATIEN 7 7 [facility] T VISIT INC 10 MINUTES OFFICE 58191 [facility] SUJATHA OUTPATIEN 7 7 PHYSICIAN T VISIT S GROUP 15 MINUTES OFFICE 91357 CAROLE MOLINAE OUTPATIEN 7 7 MEDICAL HERRERA T VISIT SERV 25 FOUNDATIO MINUTES N HOSPITAL MEHRAN - 7 7 [facility] OUTPATIEN INC T [facility]PITAL ME[facility] - 7 7 [facility] OUTPATIEN INC T OFFICE 60860 [facility] SUJATHA OUTPATIEN 7 7 PHYSICIAN T VISIT S GROUP 15 MINUTES HOSPITAL MEHRAN - 7 7 [facility] OUTPATIEN INC T OFFICE 03268 PAVAN MUELLER OUTPATIEN 7 7 MD ERVIN, T VISIT PSC 10 MINUTES HOSPITAL MEHRAN - 7 7 [facility] OUTPATIEN INC T EMERGENCY 39247 MARAL GARCIA DEPT 7 7 PHYSICIAN VISIT S, [facility] HIGH SEVERITY& THREAT [facility] MEHRAN - 7 7 [facility] OUTPATIEN INC T EMERGENCY 35608 MEHRAN 7 7 [facility] DEPARTMEN INC T VISIT HIGH/URGE NT SEVERITY [facility]OSPITAL ME[facility] - 7 7 [facility] OUTPATIEN INC T OFFICE 68977 [facility] ANDREW OUTPATIEN 7 7 PHYSICIAN OGHADDAM T VISIT S GROUP 15 MINUTES HOSPITAL MEHRAN - 6 6 [facility] OUTPATIEN INC T OFFICE 56986 MEHRAN OUTPATIEN 6 6 [facility] T VISIT INC 10 MINUTES HOSPITAL MEHRAN - 6 6 [facility] OUTPATIEN INC T OFFICE 64800 CAROLE TOLENTINO CONSULTAT 6 6 MEDICAL ION SERV NEW/ESTAB FOUNDATIO PATIENT N 30 MIN HOSPITAL MEHRAN - 6 6 [facility] OUTPATIEN INC T [facility] MEHRAN - 6 6 [facility] OUTPATIEN INC T OFFICE 14170 [place] APPLE OUTPATIEN 6 6 HEALTH T VISIT MEDICAL 15 GROUP MINUTES HOSPITAL MEHRAN - 6 6 [facility] OUTPATIEN INC T OFFICE 99151 MEHRAN OUTPATIEN 6 6 [facility] T VISIT INC 10 MINUTES OFFICE 51221 PAVAN PION OUTPATIEN 6 6 MD ERVIN, T VISIT PSC 15 MINUTES [facility] MEHRAN - 6 6 [facility] OUTPATIEN INC T OFFICE 63837 [facility] SAMIA KIM OUTPATIEN 6 6 NURSE T VISIT PRACTITIO 15 NER GR MINUTES HOSPITAL MEHRAN - 6 6 [facility] OUTPATIEN INC T EMERGENCY 94598 MEHRAN 6 6 [facility] DEPARTMEN INC T VISIT LOW/MODER SEVERITY [facility] 6 6 N OUTPATIEN COMMUNTIY T HOSPITA OFFICE 83035 MEHRAN OUTPATIEN 6 6 [facility] T VISIT INC 10 MINUTES OFFICE 66594 PAVAN MONTANO OUTPATIEN 6 6 MD ERVIN, T VISIT PSC 15 MINUTES HOSPITAL ME[facility] - 6 6 [facility] OUTPATIEN INC T OFFICE 01282 [facility] SAMIA KIM OUTPATIEN 6 6 NURSE T NEW 30 PRACTITIO MINUTES NER GR OFFICE 28251 [place] RODRIGUES OUTPATIEN 6 6 HEALTH T VISIT MEDICAL 15 GROUP MINUTES OFFICE 15080 MEHRAN OUTPATIEN 6 6 [facility] T VISIT INC 10 MINUTES HOSPITAL MEHRAN - 6 6 [facility] OUTPATIEN INC T OFFICE 87126 PAVAN MONTANO OUTPATIEN 6 6 MD ERVIN, T VISIT PSC 15 MINUTES HOSPITAL MEHRAN - 6 6 [facility] OUTPATIEN INC T OFFICE 54496 JOSE GO TRA OUTPATIEN 6 6 T VISIT ORTHOPAED 15 ICS PSC MINUTES OFFICE 11180 JUDD RODRIGUES OUTPATIEN 6 6 HEALTH T VISIT MEDICAL 15 GROUP MINUTES HOSPITAL MEHRAN - 6 6 [facility] OUTPATIEN INC T OFFICE 79179 JOSE GO OUTPATIEN 6 6 T VISIT ORTHOPAED 15 ICS PSC MINUTES OFFICE 32250 MEHRAN OUTPATIEN 6 6 [facility] T VISIT INC 10 MINUTES OFFICE 22836 PAVAN MONTANO OUTPATIEN 6 6 MD ERVIN, T VISIT PSC 15 MINUTES HOSPITAL MEHRAN - 6 6 [facility] OUTPATIEN INC T OFFICE 32310 MEHRAN DE LA O OUTPATIEN 6 6 [facility] T VISIT HOSPITAL 15 MINUTES OFFICE 30151 CAROLE ESCAMILLA OUTPATIEN 6 6 MEDICAL PAD T VISIT SERV 25 FOUNDATIO MINUTES [facility] MEHRAN - 6 6 MEM [facility] OUTPATIEN INC T OFFICE 34684 PAVAN MONTANO OUTPATIEN 6 6 MD ERVIN, T VISIT PSC 15 MINUTES OFFICE 97898 SHU DELA CRUZ OUTPATIEN 6 6 Medicine HOLLY T NEW 45 MINUTES OFFICE 39869 MEHRAN OUTPATIEN 6 6 [facility] T VISIT INC 10 MINUTES HOSPITAL PROTESTANT - 6 6 HOSPITAL OUTPATIEN & [facility] OFFICE 45433 MEHRAN DE LA O OUTPATIEN 6 6 [facility] T VISIT HOSPITAL 15 MINUTES OFFICE 05491 JUDD RODRIGUES OUTPATIEN 6 6 HEALTH T VISIT MEDICAL 15 GROUP MINUTES OFFICE 24157 [place] LILIA OUTPATIEN 6 6 HEALTH T VISIT MEDICAL 25 GROUP MINUTES OFFICE 28879 CAROLE JOHNSON OUTPATIEN 6 6 MEDICAL CLA T VISIT SERV 15 FOUNDATIO MINUTES N OFFICE 98983 [facility] ANDREW OUTPATIEN 6 6 PHYSICIAN TAWANNA COWART 45 S GROUP JAL MINUTES [facility] MEHRAN - 6 6 [facility] OUTPATIEN INC T OFFICE 18177 PAVAN MONTANO OUTPATIEN 6 6 MD ERVIN, T BANNER 30 PSC MINUTES [facility] MEHRAN - 6 6 [facility] OUTPATIEN INC T OFFICE 71483 MEHRAN SHARMA OUTPATIEN 6 6 [facility] T VISIT HOSPITAL 15 MINUTES OFFICE 97863 [place] RODRIGUES OUTPATIEN 6 6 HEALTH YANY T VISIT MEDICAL 25 GROUP MINUTES [facility] MEHRAN - 6 6 [facility] OUTPATIEN INC T OFFICE 96457 CAROLE RODRIGUEZ OUTPATIEN 6 6 MEDICAL MEGAN T VISIT SERV 15 FOUNDATIO MINUTES N OFFICE 50091 [place] DAHL OUTPATIEN 6 6 HEALTH T VISIT MEDICAL 25 GROUP MINUTES OFFICE [address] OUTPATIEN 6 6 [facility] T VISIT [facility] 15 MINUTES OFFICE [address] OUTPATIEN [address] [facility] 15 MINUTES EMERGENCY 62712 MARAL GARCIA 6 6 PHYSICIAN XIAO SKELTON S, [facility] T VISIT HIGH/URGE NT [facility] HOSPITAL MEHRAN - 6 6 [facility] OUTPATIEN INC T OFFICE 02353 MEHRAN SHARMA OUTPATIEN 5 5 [facility] 15 MINUTES EMERGENCY 69158 [facility] 5 PHYSICIAN U KOLBY VISIT S, [facility] HIGH SEVERITY& THREAT [facility] MEHRAN - 5 5 [facility] OUTPATIEN INC T OFFICE 53808 [place] MORRIN OUTPATIEN 5 5 HEALTH YANY T VISIT MEDICAL 15 GROUP MINUTES OFFICE 05762 GASTROENT CASE JUS CONSULTAT 5 5 EROLOGY ION AND NEW/ESTAB HEPATOL PATIENT 60 MIN OFFICE [address] OUTPATIEN [address] [facility] 15 MINUTES OFFICE 86436 [facility] SUJATHA SHAH OUTPATIEN 5 5 PHYSICIAN MILY T VISIT S GROUP 15 MINUTES OFFICE 38549 [place] MORRIN OUTPATIEN 5 5 HEALTH YANY T VISIT MEDICAL 25 GROUP MINUTES [facility] MEHRAN - 5 5 [facility] OUTPATIEN INC T OFFICE 82872 CAROLE RODRIGUEZ OUTPATIEN 5 5 MEDICAL MEGAN T VISIT SERV 10 FOUNDATIO MINUTES N OFFICE 00006 [place] LIZETTRIN OUTPATIEN 5 5 HEALTH YANY T VISIT MEDICAL 15 GROUP MINUTES OFFICE 47885 [place] KASEY MONREAL OUTPATIEN 5 5 HEALTH T VISIT MEDICAL 25 GROUP MINUTES OFFICE 04154 [place] JOHNSON OUTPATIEN 5 5 MEDICAL CLA T VISIT SERV 10 FOUNDATIO MINUTES N OFFICE 06917 [place] TAYLOR CONSULTAT 5 5 HEALTH OFE ION MEDICAL NEW/ESTAB GROUP PATIENT 40 MIN OFFICE 16117 [place] TEAGAN ANT OUTPATIEN 5 5 MEDICAL T VISIT SERV 25 FOUNDATIO MINUTES N OFFICE 43325 [place] APPLE OUTPATIEN 5 5 HEALTH ANT T VISIT MEDICAL 15 GROUP MINUTES HOSPITAL MEHRAN - 5 5 [facility] OUTPATIEN INC T OFFICE 30077 [place] LATONYA CONSULTAT 5 5 MEDICAL MAX ION SERV NEW/ESTAB FOUNDATIO PATIENT N 60 MIN EMERGENCY 45716 UNIVERSIT DEPT 5 5 Y VISIT HOSPITAL HIGH SEVERITY& THREAT FUNCJ EMERGENCY 17234 CAROLE WHIET 5 5 MEDICAL SET DEPARTMEN SERV T VISIT FOUNDATIO HIGH/URGE N NT [facility] HOSPITAL UNIVERSIT - 5 5 Y OUTPATIEN [facility] CENTRAL - 5 5 [place] OUTPATIEN HOSP T EMERGENCY 90927 CENTRAL DEPT 5 5 [place] VISIT HOSP HIGH SEVERITY& THREAT [facility] OFFICE 95795 [place] MONREAL OUTPATIEN 5 5 HEALTH T VISIT MEDICAL 15 GROUP MINUTES OFFICE 04126 [place] TOÑITO OUTPATIEN 5 5 HEALTH MAURICE T VISIT MEDICAL 15 GROUP MINUTES HOSPITAL MEHRAN - 5 5 [facility] OUTPATIEN INC [facility] MEHRAN - 5 5 [facility] OUTPATIEN [facility] T OFFICE 51817 [place] TEAGAN ANT OUTPATIEN 5 5 MEDICAL T VISIT SERV 25 FOUNDATIO MINUTES HOSPITAL MEHRAN - 5 5 [facility] OUTPATIEN INC T OFFICE 93675 [place] TEAGAN ANT OUTPATIEN 5 5 MEDICAL T NEW 45 SERV MINUTES FOUNDATIO N OFFICE 15508 [place] TOÑITO OUTPATIEN 5 5 HEALTH MAURICE T VISIT MEDICAL 15 GROUP MINUTES OFFICE 29239 [facility] VJ OUTPATIEN 4 4 PHYSICIAN FRA T VISIT S GROUP 15 MINUTES EMERGENCY 73431 MEHRAN 4 4 MEM HOS[facility] DEPARTMEN INC T VISIT MODERATE SEVERITY HOSPITAL MEHRAN - 4 4 [facility] OUTPATIEN INC T OFFICE 86419 [facility] SUJATHA JR OUTPATIEN 4 4 PHYSICIAN MILY T VISIT S GROUP 15 MINUTES HOSPITAL MEHRAN - 4 4 [facility] OUTPATIEN INC T OFFICE 81460 [place] TOÑITO OUTPATIEN 4 4 NEUROLOGY MAURICE T VISIT CENTER 25 KORINA MINUTES [facility] CENTRAL - 4 4 [place] OUTPATIEN HOSP [facility] MEHRAN - 4 4 [facility] OUTPATIEN INC T OFFICE 26698 SIMON CHIU OUTPATIEN 4 4 ANT T VISIT CARDIOLOG 15 Y AT [facility] MEHRAN - 4 4 MEM [facility] OUTPATIEN INC T OFFICE 15922 FAYE MCKINNEY OUTPATIEN 4 4 MAX MAX T VISIT 15 MINUTES OFFICE 68459 [facility] VJ OUTPATIEN 4 4 PHYSICIAN AUGUSTINE T NEW 30 S GROUP MINUTES OFFICE 98323 [facility] SUJATHA SHAH OUTPATIEN 4 4 PHYSICIAN MILY T VISIT S GROUP 15 MINUTES [facility] MEHRAN - 4 4 [facility] OUTPATIEN INC T OFFICE 27084 [place] TOÑITO OUTPATIEN 4 4 NEUROLOGY MAURICE T VISIT CENTER 25 KORINA MINUTES OFFICE 28693 SIMON [place] OUTPATIEN 4 4 DESOLDERER CAROL ANN T NEW 30 ASSOCIATE MINUTES S, OFFICE 87597 [facility] SUJATHA SHAH OUTPATIEN 4 4 PHYSICIAN MILY T NEW 30 S GROUP MINUTES HOSPITAL MEHRAN - 4 4 [facility] OUTPATIEN INC T OFFICE 02558 [place] TOÑITO OUTPATIEN 4 4 NEUROLOGY MAURICE T VISIT CENTER 25 KORINA MINUTES PERIODIC 21258 CALLUM LOENARDM PREVENTIV 4 4 WHI WHI E MED EST PATIENT 40-64YRS OFFICE 29729 [place] CALLUM OUTPATIEN 4 4 HEALTH WHI T VISIT MEDICAL 15 GROUP MINUTES OFFICE 88438 CALLUM CALLUM OUTPATIEN 4 4 WHI WHI T VISIT 25 MINUTES OFFICE 56598 APPLENORRIS CHIU OUTPATIEN 4 4 ANT ANT T VISIT 15 MINUTES OFFICE 38575 FAYE MCKINNEY OUTPATIEN 4 4 MAX MAX T VISIT 15 MINUTES HOSPITAL CENTRAL - 4 4 [place] OUTPATIEN HOSP T OFFICE 64374 VASCELLO VASCELLO OUTPATIEN 4 4 GIANNI GIANNI T VISIT 25 MINUTES OFFICE 48320 APPLE CHIU OUTPATIEN 4 4 ANT ANT T VISIT 15 MINUTES OFFICE 47349 MARII HAM MARII HAM OUTPATIEN 4 4 T NEW 45 MINUTES OFFICE 62723 CALLUM CALLUM OUTPATIEN 4 4 I WHI T VISIT 15 MINUTES OFFICE 57310 GO TRA GO TRA OUTPATIEN 4 4 T VISIT 15 MINUTES OFFICE 18395 CALLUM CALLUM OUTPATIEN 4 4 WHI WHI T VISIT 25 MINUTES OFFICE 83716 APPLENORRIS CHIU OUTPATIEN 4 4 ANT ANT T VISIT 15 MINUTES OFFICE 20331 UNIVERSIT OUTPATIEN 4 4 Y T VISIT 5 HOSPITAL [facility] UNIVERSIT - 4 4 Y OUTPATIST. [facility] MEHRAN - 4 4 MEM [facility] OUTPATIEN [facility] MEHRAN - 4 4 [facility] OUTPATIEN [facility] MEHRAN - 4 4 [facility] OUTPATIEN INC T OFFICE 45783 GO TRA GO TRA CONSULTAT 4 4 ION NEW/ESTAB PATIENT 60 MIN OFFICE 60529 APPLE CHIU OUTPATIEN 4 4 ANT ANT T VISIT 25 MINUTES OFFICE 73622 ARNMALLY MCKINNEY OUTPATIEN 4 4 MAX MAX T NEW 30 MINUTES OFFICE 57229 CALLUM NOLEN OUTPATIEN 4 4 WHI WHI T VISIT 25 MINUTES Emergency AMI Villeda MD (ER) 3 22:53 3 00:33 [facility] EMERGENCY [address] [place] 3 3 [place] DEPARTMEN HOSP T VISIT MODERATE SEVERITY HOSPITAL CENTRAL - 3 3 [place] OUTPATIEN HOSP T EMERGENCY [address] [place] FRANCISCA ISBELL DEPT 3 3 EMERGENCY VISIT PHYS PSC HIGH SEVERITY& THREAT FUNCJ Emergency AMI Dent MD (ER) 3 19:06 3 20:57 [facility] Emergency AMI SANCHEZ (ER) 3 21:25 3 01:44 [facility]
--- OUTSIDE RECORDS SUMMARY | 2017-07-01 19:13 | External Medical Summary Rpt ---
Author Author , MARLA Ochoa MARLA Address Unknown Phone [email or web address] Care Team Providers Care Cherry Grower Name Role Phone ALLRAN JR, ALLRAN JR Unavailable Unavailable ALLRAN JR MILY, ALLRAN Unavailable Unavailable JR MILY PAVAN MUELLER MD, PSC, Unavailable Unavailable PAVAN MUELLER MD, PSC ARNMALLY MAXFAYE Unavailable Unavailable MAX ARNMALLY MAX, ARNOLD Unavailable Unavailable MAX [facility] Unavailable Unavailable MEDICAL GROUP, [facility] Unavailable Unavailable [facility] [place], [facility] BEINEKE, BEINEKE Unavailable Unavailable BEINEKE KOLBY BEINEKE Unavailable Unavailable KOLBY JIMENEZ TER, JIMENEZ TER Unavailable Unavailable BESSON OFE, BESSON Unavailable Unavailable OFE [facility] Unavailable Unavailable [facility], [facility] SANTIAGO, SANTIAGO Unavailable Unavailable TEAGAN ANT, TEAGAN ANT Unavailable Unavailable MICHAEL, MICHAEL Unavailable Unavailable MICHAEL MEGAN, MICHAEL Unavailable Unavailable MEGAN [facility] Unavailable Unavailable SERVICE, [facility]available Unavailable SERVICE, [facility] BUX, BUX Unavailable Unavailable [facility], Unavailable Unavailable LLC, [facility], Unavailable Unavailable LLC, [facility] Unavailable Unavailable CONSULTANTS O, [facility] CASE JUS, CASE JUS Unavailable Unavailable [facility], Unavailable Unavailable [facility] Unavailable Unavailable PHYS PSC, [...] CLA JAROD FEDE, JAROD Unavailable Unavailable FED[facility], Unavailable Unavailable [facility] Unavailable Unavailable EMS, [facility] CALLUM WHI, CALLUM Unavailable Unavailable WHI CALLUM WHI, CALLUM Unavailable Unavailable I [facility] Unavailable Unavailable INC, [facility] Unavailable Unavailable HOSPITAL, [facility] Unavailable Unavailable HOSPITAL P, [facility], Unavailable Unavailable [facility] GO, GO Unavailable Unavailable GO TRA, GO TRA Unavailable Unavailable GO TRA, GO TRA Unavailable Unavailable ESPINOSA LEL, ESPINOSA LEL Unavailable Unavailable [facility] & Unavailable Unavailable [facility], [facility] SANCHEZ, KEIRA Unavailable Unavailable M DANIEL [facility] Unavailable Unavailable [facility], [facility] Unavailable Unavailable ASSOCIAT, [facility] TAYLOR OFE, TAYLOR Unavailable Unavailable OFE CLEVE, CLEVE Unavailable Unavailable [facility] N[facility]SE Unavailable Unavailable PRACTITIONER GR, [facility] N[facility]SE PRACTITIONER MITCH GERONIMO Unavailable Unavailable [facility], [facility] Unavailable Unavailable HOLDINGS, [facility] Unavailable Unavailable HOLDINGS, [facility] Unavailable Unavailable [facility], [facility] Unavailable Unavailable [facility], [facility] Unavailable Unavailable CORPORATION OF AM, [facility] DOMI CRI, DOMI CRI Unavailable Unavailable BRIAN JR DWI, BRIAN Unavailable Unavailable JR DWI 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 Unavailable Unavailable ASSOCIATES,, 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, GARCIA MAX, GARCIA Unavailable Unavailable MAX [...] Unavailable MAX [facility] Unavailable Unavailable SERV 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 R, 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 R [facility] Unavailable Unavailable SERV 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 R, [facility] SERV 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 R MONGIARDO FRA, Unavailable Unavailable MONGIARDO FRA MORRIN, MORRIN Unavailable Unavailable MORRIN YANY, MORRIN Unavailable Unavailable YANY [facility] Unavailable Unavailable BOARD, [facility], [facility] [...] Unavailable Unavailable [facility], [facility] Unavailable Unavailable [facility], Unavailable Unavailable [facility] VASCELLO GIANNI, Unavailable Unavailable VASCELLO GIANNI VASCELLO GIANNI, Unavailable Unavailable VASCELLO GIANNI WALKER, WALKER Unavailable Unavailable WALKER FOR, WALKER Unavailable Unavailable FOR HAROLDO SHIELDS Unavailable Unavailable HERRERA WHITE JUDY, WHITE JUDY Unavailable Unavailable Purpose Continuity of Care Document - 01-06-2013 through 2016 Problems Code Diagnosis DOS Provider Status [id number] OTHER 05-25-2017 LUDMIL[facility] VITREOUS OPACITIES RIGHT EYE [...] 05-06-2017 COMMUNITY UNSPECIFIED ANESTH OF THE BLUE [id number] ENCOUNTER 05-01-2017 [facility] FOR OTHER [facility] PREPROCEDUR INC AL EXAMINATION Z0100 ENCOUNTER 04-27-2017 [place] EXAM EYES & VISION W/O ABNORMAL FIND M7062 TROCHANTERI 04-20-2017 GRACE Kellogg BURSITIS ORTHOPEDIC LEFT HIP ASSOCIAT F55128 LATTICE 04-15-2017 OJHNSON DEGENERATIO N OF RETINA BILATERAL H5310 UNSPECIFIED 04-15-2017 ALEX SUBJECTIVE VISUAL DISTURBANCE S Q0700 ARNOLD-KEAGAN 04-15-2017 JOHNSON RI SYND W/O SPINA BIFIDA/HYDR OCEPHLUS D75526 MIGRAINE 04-09-2017 [facility] W/O AURA NEUROLOGY INTRACT W/O STAT MIGRAINOSUS G8929 OTHER 04-09-2017 [facility] CHRONIC [facility] PAIN MEDICAL GROUP J0140 ACUTE 04-09-2017 [facility] PANSINUSITI HEALTH S MEDICAL UNSPECIFIED GROUP [id number] PAIN IN 04-09-2017 [facility] LEFT HIP HEALTH MEDICAL GROUP R51 HEADACHE 04-09-2017 [facility] R600 LOCALIZED 04-09-2017 [facility] EDEMA [facility] HOSPITA E039 HYPOTHYROID 04-02-2017 [facility] ISM HEALTH UNSPECIFIED MEDICAL GROUP J0100 ACUTE 04-02-2017 [facility] MAXILLARY HEALTH SINUSITIS MEDICAL UNSPECIFIED GROUP M549 DORSALGIA 04-02-2017 [facility] UNSPECIFIED HEALTH MEDICAL GROUP M5412 RADICULOPAT 03-16-2017 [facility] HY CERVICAL [facility] REGION INC M5416 RADICULOPAT 03-16-2017 [facility] HY LUMBAR [facility] REGION INC K3184 GASTROPARES 02-06-2017 [facility] IS PHYSIC[facility]ANS GROUP D259 LEIOMYOMA 02-05-2017 [place] [facility] UTERUS SERV UNSPECIFIED FOUNDATION I10 ESSENTIAL 02-05-2017 [place] [facility] PRIMARY [facility] HYPERTENSIO FOUNDATION N [id number] UNSPECIFIED 02-05-2017 [place] [facility] OVARIAN SERV CYST RIGHT FOUNDATION SIDE L57904 UNSPECIFIED 02-05-2017 [place] [facility] CYST [...] ANESTH OF THE BLUE K651 PERITONEAL 01-05-2017 [facility] ABSCESS PHYSICIANS GROUP G4719 OTHER 12-31-2016 [facility] [...] 12-11-2016 LAB DEVENDRA OF [facility] MICTURITION HOLDINGS Y23966 UNSPECIFIED 11-10-2016 [facility] OVARIAN [facility] CYST INC UNSPECIFIED SIDE M791 MYALGIA 10-17-2016 [facility] INC G909 DISORDER 09-30-2016 [facility] AUTONOMIC MEDICAL NERVOUS GROUP SYSTEM UNS R072 PRECORDIAL 09-30-2016 [facility] PAIN HEALTH MEDICAL GROUP E782 MIXED 09-26-2016 LAB DEVENDRA HYPERLIPIDE MANISH HERIBERTO HOLDINGS E65493 ENCOUNTER 09-26-2016 [facility], 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 EXAM LLC GENERAL RTN W/O ABNORMAL FIND Z1151 ENCOUNTER 09-26-2016 [facility], FOR LLC SCREENING FOR HUMAN PAPILLOMAVI IVET L659 NONSCARRING 09-12-2016 [facility] HAIR LOSS [facility] UNSPECIFIED INC [id number] LAC W/O FB 09-01-2016 [facility] RT MIDDLE [facility] FINGER W/O INC DAMAGE NAIL INIT [id number] LAC W/O FB 09-01-2016 MARAL UNS FINGER PHYSICIANS, W/O DAMAGE PLLC NAIL INITIAL [id number] CONTACT OTH 09-01-2016 [facility]ARP [facility] OBJECT NOT INC ELSWHERE CLASS INIT [id number] KITCHEN 09-01-2016 [facility] SINGLE-FAM MEM H[facility] HOUSE PLACE INC OCCUR EXT CAUSE Z23 ENCOUNTER 09-01-2016 [facility] FOR [facility] IMMUNIZATIO INC N M4806 SPINAL 08-27-2016 [facility] STENOSIS COMMUNTIY LUMBAR HOSPITA REGION M5126 OTH 08-27-2016 [facility] INTERVERTEB COMMUNTIY RAL DISC HOSPITA DISPLACEMEN T LUMBAR RGN M542 CERVICALGIA 08-25-2016 [facility]ANS GROUP D229 MELANOCYTIC 08-07-2016 KMS NURSE NEVI PRACTITIONE UNSPECIFIED R GR I868 VARICOSE 08-07-2016 KM NURSE VEINS OF PRACTITIONE OTHER R GR SPECIFIED SITES L709 ACNE 08-07-2016 KMS NURSE UNSPECIFIED PRACTITIONE R GR R601 GENERALIZED 08-05-2016 LAB DEVENDRA EDEMA MANISH HOLDINGS M8580 OT SPEC 07-08-2016 [facility] D/O BONE HEALTH DENSITY MEDICAL STRUCTURE GROUP [facility] SITE M545 LOW BACK 07-03-2016 [facility] PAIN ORTHOPAEDIC S PSC M461 SACROILIITI 06-27-2016 [facility] S NOT MEM HOSP ELSEWHERE INC CLASSIFIED H5213 MYOPIA 06-12-2016 [place] [facility] BILATERAL SERV FOUNDATION H5319 OTHER 06-12-2016 [place] MED[facility] SUBJECTIVE SERV VISUAL FOUNDATION DISTURBANCE S N48683 CHRONIC 05-14-2016 [facility] MIGRAINE HEALTH W/O AURA MEDICAL INTRACT W/O GROUP STAT MIGR M810 AGE-RELATED 05-09-2016 [facility] OSTEOPOROSI INC S W/O CURRNT PATH FX Z1231 ENCOUNTER 05-09-2016 [facility] SCREENING MEDICAL MAMMO MALIG IMAGING ASS NEOPLASM BREAST H31838 ENCOUNTER 05-09-2016 [place] FOR MEDICAL SCREENING IMAGING ASS FOR OSTEOPOROSI S K5909 OTHER 05-06-2016 [facility] CONSTIPATIO Medicine N K591 FUNCTIONAL 05-06-2016 [facility] DIARRHEA Medicine M4800 SPINAL 05-06-2016 [facility] UNSPECIFIED R140 ABDOMINAL 05-06-2016 [facility] DISTENSION Medicine GASEOUS R6881 EARLY 05-06-2016 [facility] SATIETY Medicine R5382 CHRONIC 04-29-2016 [facility]UE [facility] UNSPECIFIED MEDICAL GROUP R5383 OTHER 04-18-2016 LAB DEVENDRA FATIGUE MANISH HOLDINGS R42 DIZZINESS 04-07-2016 HM AND PHYSICIANS GIDDINESS GROUP [id number] CONCUSSION 04-07-2016 [facility] WITHOUT LOC PHYSICIANS INITIAL GROUP ENCOUNTER M24775 ACUTE 03-02-2016 [facility] SUPPURATIVE [facility] W/O HOSPITAL RUPT EAR DRUM UNS EAR R110 NAUSEA 02-27-2016 [facility] H955P5P CONCUSSION 02-27-2016 [facility] W/LOC UNS HEALTH DURATION MEDICAL INITIAL GROUP ENCOUNTER M1611 UNILATERAL 01-29-2016 [place] PRIMARY MEDICAL OSTEOARTHRI IMAGING ASS TIS RIGHT HIP F98911 PAIN IN 01-29-2016 [place] RIGHT HIP MEDICAL IMAGING ASS H5210 MYOPIA 01-15-2016 [place] [facility]ICAL UNSPECIFIED SERV EYE FOUNDATION H5203 HYPERMETROP 12-27-2015 L[place] IA GRE BILATERAL J069 ACUTE UPPER 12-13-2015 LAB DEVENDRA MANISH RESPIRATORY HOLDINGS INFECTION UNSPECIFIED R928 OTH ABNORM 12-13-2015 [facility] & HEALTH INCONCLUSIV MEDICAL E FIND ON GROUP DX IMAG BREAST Z6829 BODY MASS 12-13-2015 [facility] INDEX BMI HEALTH 29.0-29.9 MEDICAL ADULT GROUP J0190 ACUTE 12-09-2015 [facility] SINUSITIS [facility] R05 COUGH 11-16-2015 [facility] M5430 SCIATICA 10-17-2015 [facility] UNSPECIFIED HEALTH SIDE MEDICAL GROUP H539 UNSPECIFIED 10-04-2015 [facility] VISUAL HEALTH DISTURBANCE MEDICAL GROUP R358 OTHER 10-04-2015 [facility] POLYURIA HEALTH MEDICAL GROUP R079 CHEST PAIN 10-02-2015 [place] [facility]ICAL UNSPECIFIED SERV FOUNDATION R9431 ABNORMAL 10-02-2015 [facility] ELECTROCARD LAR IOGRAM CONSULTANTS O Y15552 OTHER LONG 10-01-2015 [facility] TERM PHYSICIANS CURRENT GROUP DRUG THERAPY Z0000 ENCOUNTER 09-25-2015 [facility] GEN ADULT HEALTH MED EXAM MEDICAL W/O GROUP ABNORMAL FIND A6000 HERPESVIRAL 08-17-2015 [facility] INFECTION HEALTH OF MEDICAL UROGENITAL GROUP SYSTEM UNS B009 HERPESVIRAL 08-17-2015 [facility] INFECTION HEALTH UNSPECIFIED MEDICAL GROUP Z202 CONTACT 08-17-2015 [facility] WITH HEALTH EXPOSURE MEDICAL INFECT GROUP SEXUAL MODE TRANSMS 33721 DEGEN 07-26-2015 [place] LUMBAR/LUMB MEDICAL OSACRAL IMAGING ASS INTERVERTEB RAL DISC 7242 LUMBAGO 07-26-2015 [place] [facility] 27638 PROGRESSIVE 07-25-2015 [place] [facility] HIGH SERV MYOPIA FOUNDATION 65301 CHRONIC 07-11-2015 [facility] MIGRAINE HEALTH W/O MEDICAL W/INTRACTAB GROUP LE W/O SM 7231 CERVICALGIA 07-11-2015 [facility] 7049 UNSPECIFIED 07-02-2015 [facility] DISEASE OF HEALTH HAIR AND MEDICAL HAIR GROUP FOLLICLES 7245 UNSPECIFIED 07-02-2015 [facility] BACKACHE HEALTH MEDICAL GROUP 7881 DYSURIA 07-02-2015 LAB DEVENDRA MANISH HOLDINGS 3384 CHRONIC 06-22-2015 LAB DEVENDRA PAIN MANISH SYNDROME HOLDINGS 5990 URINARY 06-22-2015 LAB DEVENDRA TRACT MANISH INFECTION HOLDINGS SITE NOT SPECIFIED 66969 OTHER 06-15-2015 [facility] VITREOUS SERV OPACITIES FOUNDATION 5363 GASTROPARES 05-14-2015 [facility] IS SERV FOUNDATION 5609 UNSPECIFIED 05-14-2015 [facility] INTESTINAL SERV FOUNDATION OBSTRUCTION 7873 FLATULENCE 05-14-2015 [place] [facility] ERUCTATION SERV AND GAS FOUNDATION PAIN 4011 ESSENTIAL 05-01-2015 [facility] HYPERTENSIO HEALTH N, BENIGN MEDICAL GROUP 01938 ACUTE 05-01-2015 [facility] IDIOPATHIC HEALTH PERICARDITI MEDICAL S GROUP 65965 OTHER CHEST 05-01-2015 [facility] PAIN HEALTH MEDICAL GROUP V7281 PRE-OPERATI 05-01-2015 [facility] VE HEALTH CARDIOVASCU MEDICAL LAR GROUP EXAMINATION 7213 LUMBOSACRAL 04-23-2015 [place] [facility] SPONDYLOSIS IMAGING ASS WITHOUT MYELOPATHY 41610 DISPLCMT 04-23-2015 [place] LUMBAR MEDICAL INTERVERT IMAGING ASS DISC W/O MYELOPATHY 84207 LATTICE 04-20-2015 [place] [facility] DEGENERATIO SERV N OF FOUNDATION PERIPHERAL RETINA 2449 UNSPECIFIED 04-08-2015 [facility] HYPOTHYROID ISM 3671 MYOPIA 04-08-2015 [facility] 87774 OTHER 04-08-2015 [facility] DISTORTIONS AND ENTOPTIC PHENOMENA 3688 OTHER 04-08-2015 [place] MEDICAL SPECIFIED SERV VISUAL FOUNDATION DISTURBANCE S 49335 PAIN IN [place] 04-08-2015 [facility] 4019 UNSPECIFIED 04-08-2015 [facility] HYPERTENSIO N 4239 UNSPECIFIED 04-08-2015 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 14581 OTHER 04-08-2015 [facility] LUNG NOT ELSEWHERE CLASSIFIED 05568 CHEST PAIN 04-08-2015 [place] [facility] UNSPECIFIED SERV FOUNDATION V1259 PERS HX, 04-08-2015 [place] [facility] OTHER SERV DISEASES OF FOUNDATION CIRCULATORY SYSTEM 3699 UNSPECIFIED 04-07-2015 [facility] VISUAL EMERGENCY LOSS PHYS PSC 57760 UNSPECIFIED 04-07-2015 [facility] DISORDER AMBULANCE OF EYE SERVICE 7820 DISTURBANCE 03-29-2015 [facility] SENSATION MEDICAL GROUP 14060 REGULAR 03-28-2015 [place] [facility] ASTIGMATISM SERV FOUNDATION 71123 INTERMITTEN 03-28-2015 [place] [facility] T SERV EXOTROPIA, FOUNDATION ALTERNATING 14087 OTHER 03-01-2015 [place] SPECIFIED MEDICAL DISORDERS IMAGING ASS OF BREAST 74884 UNSPECIFIED 03-01-2015 [facility] ABNORMAL [facility] MAMMOGRAM INC 28554 ATROPHIC 02-26-2015 [facility], GASTRITIS LLC WITHOUT MENTION OF HEMORRHAGE 40373 UNS 02-26-2015 [facility] GASTRITIS&G [facility] ASTRODUODIT INC IS W/O MENTION HEMORR 87759 NAUSEA 02-26-2015 [facility] ALONE [facility] INC 48803 ABDOMINAL 02-26-2015 [facility] PAIN, MEM HOS[facility] GENERALIZED INC V5869 LONG-TERM 02-26-2015 [facility] (CURRENT) [facility] USE OF INC OTHER MEDICATIONS 7804 DIZZINESS 11-29-2014 [facility] 7840 HEADACHE 11-29-2014 [facility] 72205 OTHER 10-27-2014 [facility] DISEASES OF PHYSICIANS LARYNX GROUP 75528 DYSPHONIA 10-27-2014 [facility] PHYSICIANS GROUP 96896 DYSPHAGIA 10-27-2014 [facility] UNSPECIFIED PHYSICIANS GROUP V642 SURG/OTH 10-23-[address] [facility] [address] [facility]OSP[facility] P BECAUSE PTS DECN 39960 EARLY 10-17-2014 [facility] SATIETY PHYSICIANS GROUP 36804 DYSPHAGIA 10-17-2014 [facility] OROPHARYNGE PHYSICIANS AL PHASE GROUP 93907 ABDOMINAL 10-17-2014 [facility] PAIN, PHYSICIANS EPIGASTRIC GROUP 14102 INSOMNIA 09-27-2014 [facility] KORINA V700 ROUTINE 09-21-2014 [facility] GENERAL [facility] MEDICAL INC EXAM@HEALTH CARE FACL V7612 OTHER 09-21-2014 [place] SCREENING MEDICAL MAMMOGRAM IMAGING ASS 25160 ABDOMINAL 09-18-2014 [place] PAIN, MEDICAL UNSPECIFIED IMAGING ASS SITE 3829 UNSPECIFIED 09-16-2014 ARNOLD MAX OTITIS MEDIA 4619 ACUTE 09-16-2014 FAYE SANTANA SINUSITIS, UNSPECIFIED V0481 NEED 09-16-2014 FAYE SANTANA PROPHYLACTI C VACCINATION &INOCULATIO N FLU 3502 ATYPICAL 09-06-2014 [facility] C[facility] [place] 71446 MIGRAINE 08-24-2014 [facility] W/O AURA NEUROLOGY INTRACT W/O CENTER [place] STATUS MIGRAINOSUS 2181 INTRAMURAL 08-23-2014 [facility] LEIOMYOMA 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 OF UTERUS ASSOCIATES, 2189 LEIOMYOMA 08-15-2014 [place] OF UTERUS, MEDICAL UNSPECIFIED IMAGING ASS 6202 OTHER AND 08-15-2014 [facility] UNSPECIFIED MEM HOS[facility] OVARIAN INC CYST 6259 UNSPEC 08-15-2014 [place] [facility]OM [facility] ASSOC IMAGING ASS W/FEMALE GENITAL ORGANS 7812 ABNORMALITY 08-09-2014 [facility] OF GAIT NEUROLOGY CENTER [place] V7231 ROUTINE 08-07-2014 CALLUM BENJAMIN GYNECOLOGIC AL EXAMINATION V762 SCREENING 08-07-2014 LABORATORY FOR DEVENDRA OF MALIGNANT MANISH H NEOPLASM OF THE CERVIX 43076 ESOPHAGEAL 07-31-2014 [facility] REFLUX [facility] MEDICAL GROUP 7291 UNSPECIFIED 06-04-2014 EMPI INC MYALGIA AND MYOSITIS 5950 ACUTE 05-03-2014 CALLUM BENJAMIN CYSTITIS 67794 OTHER 05-03-2014 APPLE [place] [address] OSTEOARTHRO 04-21-2014 FAYE SANTANA S INVLV MX SITES BUT [place] SPEC GEN 00559 BENIGN 04-17-2014 [facility] PAROXYSMAL [facility] POSITIONAL HOSP VERTIGO V571 OTHER 04-17-2014 [facility] PHYSICAL [facility] THERAPY [facility] 7210 CERVICAL 03-21-2014 VASCELLO SPONDYLOSIS GIANNI WITHOUT MYELOPATHY 7230 SPINAL 03-20-2014 [facility] STENOSIS IN [place] CERVICAL REGION 59658 SPINAL STEN 03-20-2014 [facility] LUMB REG [place] W/O NEUROGENIC CLAUDICATIO N 78978 SPINA 03-20-2014 [place] BIFIDA WITH [place] HYDROCEPHAL US CERVICAL REGION 50287 POSTLAMINEC 01-31-2014 MARII HAM JUSTINO SYNDROME CERVICAL REGION 7244 THORACIC/ABRAHAM 01-31-2014 MARIIRUPALI STEIN MBOSACRAL NEURITIS/RA DICULITIS UNSPEC 0549 HERPES 01-26-2014 CALLUM BENJAMIN SIMPLEX WITHOUT MENTION OF COMPLICATIO N 5533 DIAPHRAGMAT 01-19-2014 CALLUM JERRYI ALTAGRACIA W/O MENTION OBSTRUCTION /GANGREN 7821 RASH AND 01-19-2014 CALLUM WHI OTHER NONSPECIFIC SKIN ERUPTION 7850 UNSPECIFIED 01-18-2014 APPLE ANT TACHYCARDIA 22186 CHRONIC 01-13-2014 [facility] W/O AURA W/O INTRACTABLE W/O SM 7218 OTHER 01-10-2014 ALY[facility] ALLIED JANET DISORDERS OF SPINE 7220 DISPLCMT 01-10-2014 [facility] CERV JANET INTERVERT DISC WITHOUT MYELOPATHY 65233 KYPHOSIS 01-10-2014 [facility] ACQUIRED JANET POSTURAL V454 ARTHRODESIS 01-10-2014 [facility] STATUS JANET V1641 FAMILY 01-05-2014 ALYCE HISTORY OF JANET MALIGNANT NEOPLASM OVARY 7224 DEGENERATIO 12-29-2013 GO TRA N OF CERVICAL INTERVERTEB RAL DISC 2724 OTHER AND 12-28-2013 APPLE ANT UNSPECIFIED HYPERLIPIDE HERIBERTO 87687 ABDOMINAL 12-08-2013 CALLUM WHI PAIN, LEFT LOWER QUADRANT 345.90 345.90 09-21-2013 Mehran EPILEPSY [facility] UNSPEC W/O Hospital MENTION INTRACTABLE EPILEPSY 401.9 401.9 09-21-2013 Mehran HYPERTENSIO [facility] N [facility]CL [facility] 413.9 413.9 09-21-2013 Mehran ANGINA [facility] PECTORIS [facility] NEC/NOS 786.50 786.50 09-21-2013 Mehran CHEST PAIN [facility] V14.8 V14.8 09-21-2013 Mehran HX-DRUG [facility] ALLERGY [facility] V45.89 V45.89 09-21-2013 Mehran POSTSURGICA [facility] V58.69 V58.69 OTH 09-21-2013 Mehran MED,LT,CURR [facility] ENT USE Hospital 4299 UNSPECIFIED 09-10-2013 [facility] 48583 ALTERED 09-06-2013 [facility] MENTAL RADIOLOGY STATUS ASSOC 692.9 692.9 05-24-2013 Mehran DERMATITIS [facility] 723.1 723.1 05-24-2013 Mehran CERVICALGIA [facility] 780.39 780.39 05-24-2013 Mehran OTHER [facility] CONVULSIONS [facility] 780.2 780.2 01-07-2013 Mehran SYNCOPE AND [facility] COLLAPSE Hospital 780.79 780.79 OTH 01-07-2013 Mehran MALAISE&FAT [facility] IGUE [facility] 781.2 781.2 01-07-2013 Mehran ABNORMALITY [facility] M54.2 CERVICALGIA R05 COUGH R07.9 CHEST PAIN, UNSPECIFIED R51 HEADACHE S61.219A LACERATION W/O FB OF UNSP FINGER W/O DAMAGE TO NAIL, INIT Z53.21 PROC/TRTMT NOT CRD OUT D/T PT LV BEF SEEN BY [facility] PROV Allergies, Adverse Reactions, Alerts Type [...] #3 93 MG 8 TA BL ET AZ 65 07 08 30 7 00 RI [...] AI ZA 75 17 17 44 D AZ 0 99 PH IN AR E MA [...] CY TA BL #3 ET 93 8 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 9% SO ABRAHAM TI ON [place] 00 02 0 No OM 64 -2 ET 11 2- Lo GERARDO 49 20 ng ZI 53 13 er NE 5 Ac 25 ti ve MG /M L AM PU L SO 00 02 1 No DI 40 -2 UM 97 1- Lo 98 20 ng CH 42 13 er LO 0 RI Ac DE ti ve 0. 9% SO ABRAHAM TI ON [place] 00 02 0 No OM 64 -2 [...] CARDINAL SAGITTAL- 7 ORTHOTICS ORTHOTICS CORONAL , [facility] CONTRL RIGD ANT POST PANELS IMPLTJ 53718 PAVAN BUBlayne REVJ/RPSG 7 MD ERVIN, PSC ITHCL/EDR L CATH UROLOGIC NURSE W/O PEREZ IMPLTJ/RP [id number] [facility] L[facility]T 7 SURGICAL E ITHCL/EDR L DRUG NFS PRGRBL PUMP UNCLASSIF [id number] [facility] IED DRUGS 7 [facility] INC INC ANES 57832 [facility] INTEG 7 ANESTH MUSC & OF THE NRV HEAD BLUE NECK&POST ERIOR TRUNK INFUSION C1772 [facility] PUMP 7 [facility] PROGRAMMA INC INC BLE BASIC 35743 [facility] METABOLIC 7 [facility] PANEL INC INC CALCIUM TOTAL BLOOD 09591 [facility] COUNT 7 [facility] COMPLETE INC INC AUTO&AUTO DIFRNTL WBC DETERMINA 12822 LUDMILA LUDMILA TION 7 REFRACTIV E STATE OPHTH 74460 [facility] 7 XM&EVAL COMPRHNSV ESTAB PT 1/> ARTHROCEN 71585 [facility] CAR[facility] 7 ORTHOPEDI ASPIR&/IN C J MAJOR ASSOCIAT JT/BURSA W/O US COMPUTERI 49559 ALEX SAUCEDO 7 OPHTHALMI C IMAGING RETINA DUP-SCAN 76190 [facility] [place] SCALF XTR VEINS 7 RADIOLOGY UNILATERA L/LIMITED STUDY URNLS DIP 48916 ZOROASTRIAN CLEVE 7 HEALTH STICK/TAB MEDICAL LET RGNT GROUP NON-AUTO W/O MICRSCP RADEX HIP 82061 AMARILIS PARKS 7 RADIOLOGY UNILATERA ASSOC L WITH PELVIS 2-3 [place] [address] CAROLE ZARCO TRANSVAGI 7 MEDICAL HERRERA NAL SERV FOUNDATIO N FINAL G9638 [facility] SANTIAGO REPORTS 7 MEDICAL W/O DOC IMAGING 1/[place] [address] [facility] ABDOMEN & 7 MEDICAL PELVIS IMAGING W/CONTRAS ASS T MATERIAL FINAL G9551 [facility] REPR ABD 7 MEDICAL IMAG STS IMAGING W/O ASS INCIDNT FND LES NTD: CREATININ 08376 [facility] E BLOOD 7 [facility] INC INC COLLECTIO 06211 [facility] N VENOUS 7 [facility] [place] [address] [facility] UREA 7 [facility] NITROGEN INC INC QUANTITAT [place] ANES 51816 [facility] UPPER GI 7 ANESTH ENDOSCOPY OF THE PROXIMAL BLUE TO DUODENUM SLEEP STD 99776 [facility] AIRFLOW 7 [facility] HRT INC INC RATE&O2 SAT EFFORT UNATT URINE 05968 [facility] 7 [facility] TEST INC [place] [address] [facility] HEAD/BRAI 7 [facility] N W/O INC INC CONTRAST MATERIAL FINAL G9638 [facility] REPORTS 7 MEDICAL W/O DOC IMAGING 1/[place] [address] [facility] INFUSION 7 MEM HOSP MEM HOSP THERAPY/P INC INC ROPHYLAXI S /DX 1ST TO 1 HR URNLS DIP 35087 [facility]AN LAURENT 7 [facility] STICK/TAB INC INC LET REAGENT AUTO MICROSCOP Y THERAPEUT 94339 MEHRAN LAURENT IC 7 [facility] INJECTION INC INC IV PUSH EACH NEW DRUG GLUC BLD 95367 MEHRAN LAURENT GLUC MNTR 7 [facility] DEV INC INC CLEARED FDA SPEC HOME USE NJX 98855 PAVAN BUX DX/THER 7 MD ERVIN, SBST PSC INTRLMNR LMBR/SAC W/IMG GDN ROM 24631 MEHRAN LAURENT CHELSEY&REPR 7 [facility] T EA XTR INC INC EX HAND/EA TRNK SCTJ SPI RHEUMATOI 79200 LAB [facility] LAB [facility] D FACTOR 7 [facility] BLOOD 66783 LAB DEV[facility] LAB DEV[facility]DR[facility] COUNT 7 [facility] HOLDINGS AUTO&AUTO DIFRNTL WBC COMPREHEN 58378 LAB [facility] LAB DEV[facility]DRA SIVE 7 [facility] METABOLIC [facility] HOLDINGS PANEL C-REACTIV 58502 LAB DEVENDRA LAB DEV[facility]DRA E PROTEIN 7 [facility] HOLDINGS ANTINUCLE 50381 LAB DEV[facility]DRA LAB DEVENDRA AR 7 [facility] [place] [address] LAB DEVENDRA LAB DEVENDRA BLOOD/URI 7 [facility] ACID HOLDINGS HOLDINGS CHEMODERV 19867 [facility] SHOFRANCIS-Mt ATE 7 PHYSICIAN OGHADDAM FACIAL/TR S GROUP IGEM/CERV [facility] MIGRAINE BOTULINUM J0585 [facility] ANDREW TOXIN 7 PHYSICIAN OGHADDAM TYPE A S GROUP PER UNIT COLLECTIO 23693 MEHRAN MEHRAN N VENOUS 6 [facility] BLOOD INC INC VENIPUNCT URE IMMUNOASS 25065 MEHRAN LAURENT AY TUMOR 6 [facility] ANTIGEN INC INC QUANTITAT [place] INJECTION 41115 MEHRAN LAURENT 6 [facility] SINGLE/ML INC INC T TRIGGER POINT 1/2 [place] [address] MEHRAN LAURENT TRANSVAGI 6 [facility] NAL INC INC LIPID 16878 LAB DEVENDRA LAB DEVENDRA PANEL 6 [facility] HOLDINGS HOLDINGS IADNA 20622 [facility], [facility] HUMAN 6 LLC ER JR YEE [place] [address] LAB DEVENDRA LAB DEVENDRA THYROXINE 6 [facility] TOTAL HOLDINGS HOLDINGS CYTP C/V 07457 [facility], PICKLESIM AUTO THIN 6 LLC ER JR YEE LYR PREPJ SCR MNL RESCR PHYS COMPREHEN 01800 LAB DEVENDRA LAB DEVENDRA SIVE 6 [facility] MET[facility]OL[facility] [place] [address] LAB DEVENDRA LAB DEVENDRA THYROID 6 [facility] STIM[facility] HOLDINGS NG HORMONE TSH COLLECTIO 09797 MEHRAN LAURENT N VENOUS 6 [facility] [place] [address] MEHRAN LAURENT FREE 6 [facility] [place] [address] MEHRAN LAURENT THYROID 6 [facility] STIMULATI [place] [address] MEHRAN LAURENT TRIIODOTH 6 [facility] YRONINE INC INC T3 FREE BLOOD 79887 MEHRAN LAURENT COUNT 6 [facility] COMPLETE INC INC AUTO&AUTO DIFRNTL WBC IM ADM 66840 MEHRAN LAURENT PRQ ID 6 [facility] SUBQ/IM INC INC NJXS 1 VACCINE SIMPLE 87484 MEHRAN LAURENT REPAIR 6 [facility] SCALP/NEC INC INC K/AX/BLUE T/TRUNK 2.5CM/< LAMNOTMY 10823 [facility] GO INCL 6 W/DCMPRSN ORTHOPAED NRV ROOT ICS PSC 1 INTRSPC LUMBR ANESTHESI 72489 [place] A LUMBAR 6 ANESTHESI JAVI REGION A GROUP NOS PS BOTULINUM J0585 [facility] SHOJAEI-M TOXIN 6 PHYSICIAN OGHADDAM TYPE A S GROUP PER UNIT CHEMODERV 87286 [facility] SHOJAEI-M ATE 6 PHYSICIAN OGHADDAM FACIAL/TR S GROUP IGEM/CERV MUSC MIGRAINE BLOOD 93159 LAB DEVENDRA LAB DEVENDRA COUNT 6 [facility] HOLDINGS AUTO&AUTO DIFRNTL WBC COMPREHEN 66792 LAB DEVENDRA LAB DEVENDRA SIVE 6 [facility] HOLDINGS PANEL COLLECTIO 70989 MEHRAN LAURENT N VENOUS 6 [facility] BLOOD INC INC VENIPUNCT URE BLOOD 85119 MEHRAN LAURENT COUNT 6 [facility] COMPLETE INC INC AUTO&AUTO DIFRNTL WBC RADIOLOGI 87113 MEHRAN LAURENT C EXAM 6 [facility] CHEST 2 INC INC VIEWS FRONTAL&L ATERAL ECG 24255 MEHRAN TORRES JR ROUTINE 6 [facility] W/LEAST P 12 LDS I&R ONLY DRUG TST G0477 MEHRAN MEHRAN PRESUMP;C 6 [facility] PBL BEING INC INC READ DC OPT OBV ONLY ECG 14174 MEHRAN LAURENT ROUTINE 6 [facility] ECG INC INC W/LEAST 12 LDS TRCG ONLY W/O I&R BASIC 66009 MEHRAN LAURENT METABOLIC 6 [facility] PANEL INC INC CALCIUM TOTAL INJECTION 76790 MEHRAN LAURENT 6 [facility] SINGLE/ML INC INC T TRIGGER POINT 1/2 [place] MRI 59112 JOSE CARABALLOT TRA SPINAL 6 CANAL ORTHOPAED LUMBAR ICS PSC [place] [address] PAVAN PETERFF CHARMAINE JOINT 6 MD ERVIN, ARTHRGRPH PSC Y&/ANES/S TEROID W/BRENTON INJ PROC G0260 MEHRAN LAURENT SI 6 [facility] JNT;ANES INC INC STEROID&/ TX AGT&ARTHR OGRPH RADEX HIP 66475 JOSE CARABALLOT 6 [place] ORTHOPAED L WITH ICS PSC PELVIS 1 VIEW DRUG TST G0477 MEHRAN LAURENT PRESUMP;C 6 [facility] PBL BEING INC INC READ DC OPT OBV ONLY INJECTION J1885 MEHRAN DE LA O 6 [facility] TR[facility] INE PER 15 MG INJECTION J1040 MEHRAN DE LA O 6 [facility] DNISOLONE ACETATE 80 MG THERAPEUT 56487 MEHARN DE LA O IC 6 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 SERV SERV CHELSEY FOUNDATIO FOUNDATIO OCULAR N N DEVIJ W/I&R SPX COMPUTERI 64497 CAROLE ESCAMILLA ZED 6 MEDICAL PAD OPHTHALMI SERV C IMAGING FOUNDATIO RETINA N CHEMODERV 98013 [facility] TOÑITO ATE 6 [facility] FACIAL/TR MEDICAL IGEM/CERV GROUP MUSC MIGRAINE BOTULINUM J0585 [facility] TOÑ[facility]O TOXIN 6 [facility] TYPE A MEDICAL PER UNIT GROUP COMPUTER- 44983 [place] [facility] AIDED 6 MEDICAL JANET DETECTION IMAGING ASS SCREENING MAMMOGRAP HY SCREENING G0202 [place] [facility] 6 MEDICAL JANET MAMMOGRAP IMAGING HY JOSELIN ASS INCL CAD WHEN PERFORMD DXA BONE 57031 [place] [facility] DENSITY 6 MEDICAL JANET STUDY 1/> IMAGING SITES ASS AXIAL [facility] G[address] [facility] ASSESS & MGMT PT THERAPEUT 68821 MEHRAN DE LA O IC 6 [facility] TIC/DX INJECTION SUBQ/IM INJECTION J1885 MEHRAN DE LA O [address] [place] [address] TROMETHAM INE PER 15 MG INJECTION J1040 MEHRAN DE LA O [address] [place] [address] DNISOLONE ACETATE 80 MG INJECTION J1885 [facility] MORRIN [address] [place] [address] [facility] TROMETHAM INE PER 15 MG THERAPEUT 27689 JUDD RODRIGUES IC [address] [place] [address] PROPHYLAC MEDICAL TIC/DX GROUP INJECTION SUBQ/IM CYANOCOBA 26705 LAB DEVENDRA LAB DEVENDRA DAVID 6 [facility]INGS HOLDINGS B-12 25 51451 LAB DEVENDRA LAB DEVENDRA HYDROXY 6 [facility] MANISH INCLUDES HOLDINGS HOLDINGS FRACTIONS IF PERFORMED MICROSOMA 69746 LAB DEVENDRA LAB DEVENDRA L 6 [facility] ANTIBODIE HOLDINGS HOLDINGS S EACH BLOOD 02327 LAB DEVENDRA LAB DEVENDRA COUNT 6 [facility] COMPLETE [facility]INGS HOLDINGS AUTO&AUTO DIFRNTL WBC IRON 11773 LAB DEVENDRA LAB DEVENDRA BINDING 6 [facility] [place] [address] LAB DEVENDRA LAB DEVENDRA THYROXINE 6 [facility] [address] LAB DEVENDRA LAB DEVENDRA TRIIODOTH 6 [facility] YRONINE HOLDINGS HOLDINGS T3 TOTAL TT3 COMPREHEN 61042 LAB DEVENDRA LAB DEVENDRA SIVE 6 [facility] METABOLIC [place] [address] LAB DEVENDRA LAB DEVENDRA IRON 6 [facility] [place] [address] LAB DEVENDRA LAB DEVENDRA FOLIC 6 [facility] [place] [place] [address] LAB DEVENDRA LAB DEVENDRA THYROID 6 [facility] STIMULATI HOLDINGS HOLDINGS NG HORMONE TSH INJECTION J1030 MEHRAN LAURENT 6 [facility] METHYLPRE INC INC DNISOLONE ACETATE 40 [place] NJX 81040 PAVAN DURON CRI DX/THER 6 MD ERVIN, SBST PSC EPIDURAL/ SUBARACH LUMBAR/SA CRAL LOCM Q9967 MEHRAN LAURENT 300-399 6 [facility] MG/ML INC INC IODINE CONCENTRA TION PER ML HOSPITAL G0463 MEHRAN LAURENT OUTPATIEN 6 [facility] T CLIN INC INC VISIT ASSESS & MGMT PT THERAPEUT 34465 [facility] LIZETTRIN IC 6 [facility] PROPHYLAC MEDICAL TIC/DX GROUP INJECTION SUBQ/IM INJECTION J3301 [facility] MORRIN 6 [facility] TRIAMCINO MEDICAL LONE GROUP [place] [address] [place] [address] [place] [facility] CERVICAL 6 MEDICAL JANET SPINE W/[place] [address] [place] [facility] HEAD/BRAI 6 MEDICAL JANET N W/O IMAGING CONTRAST ASS MATERIAL RADEX HIP 31655 [place] BEINEKE 6 MEDICAL UNILATERA IMAGING L WITH ASS PELVIS 2-3 VIEWS CHEMODERV 61908 [facility] TOÑITO ATE 6 [facility] FACIAL/TR MEDICAL IGEM/CERV GROUP MUSC MIGRAINE BOTULINUM J0585 [facility] TOÑ[facility]O TOXIN 6 [facility] TYPE A MEDICAL PER UNIT GROUP OPHTH 58965 [facility] 6 GRE GRE XM&EVAL COMPRE NEW PT 1/> VST LIPID 23056 LAB DEVENDRA LAB DEVENDRA PANEL 6 [facility]INGS HOLDINGS BLOOD 56000 LAB DEVENDRA LAB DEVENDRA COUNT 6 [facility] MNAISH COMPLETE HOLDINGS HOLDINGS AUTO&[place] [address] LAB DEVENDRA LAB DEVENDRA THYROID 6 [facility] STIMULATI HOLDINGS HOLDINGS NG HORMONE TSH COMPREHEN 15200 LAB DEVENDRA LAB DEVENDRA SIVE 6 [facility] METABOLIC HOLDINGS HOLDINGS PANEL PRESSURIZ 48208 MEHRAN LAURENT ED/NONPRE 6 [facility] SSURIZED INC INC INHALATIO N TREATMENT INJECTION J1040 MERHAN SHARMA 5 [facility] DNISOLONE ACETATE 80 MG INJECTION J0696 MEHRAN SHARMA 5 [facility] SODIUM PER 250 MG THERAPEUT 96032 MEHRAN SHARMA IC 5 [facility] TIC/DX INJECTION SUBQ/IM CHEMODERV 32207 [facility] TOÑITO ATE 5 [facility] FACIAL/TR MEDICAL IGEM/CERV GROUP [facility]C MIGRAINE BOTULINUM J0585 [facility] TOÑ[facility]O TOXIN 5 [facility] TYPE A MEDICAL PER UNIT GROUP OBSERVATI 91807 [facility] 5 PHYSICIAN FEDE DISCHARGE S GROUP [facility] G0378 MEHRAN LAURENT OBSERVATI 5 [facility] ON INC INC SERVICE PER HOUR COLLECTIO 08589 MEHRAN LAURENT N VENOUS 5 [facility] BLOOD INC INC VENIPUNCT URE ECHO 45216 CAROLE MEYER [facility] R-T 5 MEDICAL GABRIEL 2D SERV W/WOM-MOD FOUNDATIO E COMPL N SPEC&COLR D INITIAL 71741 [facility] 5 CULAR MAT CARE/DAY CONSULTAN 50 [place] [address] MEHRAN LAURENT TROPONIN 5 [facility] QUANTITAT INC INC [place] BLOOD 35693 MEHRAN LAURENT COUNT 5 [facility] COMPLETE INC INC AUTO&AUTO DIFRNTL WBC NONINVASI 56042 MEHRAN LAURENT VE 5 [facility] EAR/PULSE INC INC OXIMETRY SINGLE DETER CREATINE 95724 MEHRAN LAURENT KINASE 5 [facility] TOTAL INC INC COMPREHEN 07524 MEHRAN LAURENT SIVE 5 [facility] METABOLIC INC INC PANEL CREATINE 13376 MEHRAN LAURENT KINASE MB 5 [facility] FRACTION INC INC ONLY CREATINE 28343 MEHRAN LAURENT KINASE MB 5 [facility] FRACTION INC INC ONLY COMPREHEN 15883 MEHRAN LAURENT SIVE 5 [facility] METABOLIC INC INC PANEL LOCM Q9967 MEHRAN LAURENT [phone] [facility] MG/ML INC INC IODINE CONCENTRA TION PER ML RADIOLOGI 90547 MEHRAN LAURENT C [address] [facility] EXAMINATI INC INC ON CHEST SINGLE VIEW FRONTAL ECG 22246 MEHRAN LAURENT ROUTINE 5 [facility] ECG INC INC W/LEAST 12 LDS TRCG ONLY W/O I&R URINE [address]53 [address] [facility] TEST INC INC VISUAL COLOR CMPRSN METHS CREATINE 44722 MEHRAN LAURENT KINASE 5 [facility] TOTAL INC INC FIBRIN 97383 MEHRAN LAURENT DGRADJ 5 [facility] PRODUCTS INC INC D-DIMER QUAL/SEMI TACO THER 30147 MEHRAN LAURENT PROPH/DX 5 [facility] NJX IV INC INC PUSH SINGLE/1S T SBST/DRUG THERAPEUT 39242 MEHRAN LAURENT IC 5 [facility] INJECTION INC [place] [address] MEHRAN LAURENT TROPONIN [address] [facility] QUANTITAT INC INC [place] URNLS DIP [address] [facility] STICK/TAB INC INC LET REAGENT AUTO MICROSCOP Y NONINVASI 36422 MEHRAN LAURENT VE 5 [facility] EAR/PULSE INC INC OXIMETRY SINGLE DETER HEMOGLOBI 67638 MEHRAN LAURENT N [address] [facility] GLYCOSYLA INC INC KARLA A1C BLOOD 61709 MEHRANZOYA LAURENT COUNT [address] [facility] COMPLETE INC INC AUTO&AUTO DIFRNTL WBC COLLECTIO 04066 MEHRAN LAURENT N VENOUS 5 [facility] [place] [address] MEHRAN HEON ANGIOGRAP 5 [facility] HY CHEST INC INC W/CONTRAS T/NONCONT RAST ECG 48878 MEHRAN TORRES JR ROUTINE 5 [facility] W/LEAST P 12 LDS I&R ONLY HOSPITAL G0378 MEHRAN MEHRAN OBSERVATI 5 [facility] ON INC INC SERVICE PER HOUR INITIAL 47829 [facility] JAR[facility] OBSERVATI 5 PHYSICIAN FEDE ON S GROUP CARE/DAY 50 MINUTES IM ADM 33715 JUDD YUI PRQ ID 5 HEALTH SUBQ/IM MEDICAL NJXS 1 GROUP VACCINE IIV3 VACC 41655 JUDD PARKS JOCELIN 5 HEALTH PRESERVAT MEDICAL [place] FREE GROUP 0.5 ML DOSAGE IM USE THERAPEUT [address] IC 5 [facility] TIC/DX INJECTION SUBQ/IM INJECTION J10[address] 5 [facility] DNISOLONE ACETATE 40 MG RADEX 41539 MEHRAN LAURENT SPINE 5 [facility] LUMBOSACR INC INC AL MINIMUM 4 VIEWS BOTULINUM J0585 [facility] TOÑITO TOXIN 5 [facility] TYPE A MEDICAL PER UNIT GROUP CHEMODERV 29188 [facility] TOÑITO ATE 5 [facility] FACIAL/TR MEDICAL IGEM/CERV GROUP [facility] MIGRAINE INJECTION J1885 [facility] MORRIN 5 [facility] TROMETHAM INE PER 15 MG CULTURE 15136 LAB DEVENDRA LAB DEVENDRA BACTERIAL 5 [employer] HOLDINGS QUANTTATI VE COLONY COUNT URINE INJECTION J3301 [facility] MORRIN 5 [facility] TRIAMCINO MEDICAL LONE GROUP ACETONIDE NOS 10 MG INJECTION J1885 JUDD PARKS JOCELIN 5 [facility] TR[place]ETH[place] INE PER 15 MG CUL BACT 58187 LAB DEVENDRA LAB DEVENDRA AEROBIC 5 [facility] ADDL HOLDINGS HOLDINGS METHS DEFINITIV E EA ISOL CULTURE 19965 LAB DEVENDRA LAB DEVENDRA BCT 5 [facility] MANISH ISOL&PRSM HOLDINGS HOLDINGS PTV ID ISOLATE EA URINE CULTURE 78211 LAB DEVENDRA LAB DEVENDRA BACTERIAL 5 [facility] HOLDINGS HOLDINGS QUANTTATI VE COLONY COUNT URINE SUSCEPTIB 17409 LAB DEVENDRA LAB DEVENDRA LTY STDY 5 [facility] ANTIMICRB HOLDINGS HOLDINGS IAL MICRO/AGA R DILUTJ MRI 64836 MEHRAN MEHRAN SPINAL 5 [facility] CANAL INC INC LUMBAR W/O CONTRAST MATERIAL 3D 78445 MEHRAN HEON RENDERING 5 [facility] W/INTERP INC INC & POSTPROCE SS SUPERVISI ON OPHTH 13280 [employer] [facility] 5 MEDICAL CLA XM&EVAL SERV INTERMEDI FOUNDATIO ATE ESTAB N PT INJECTION J2550 [facility] 5 Y Y [facility] INE HCL UP TO [address] [place] [address] [facility] TROPONIN 5 [facility] QUANTITAT HOSP HOSP [place] ECG 62496 [place] SUSAN ROUTINE 5 MEDICAL ECG SERV W/LEAST FOUNDATIO 12 LDS N I&R ONLY RADIOLOGI 61144 [facility] C 5 Y Y [facility] ON CHEST SINGLE VIEW FRONTAL THROMBOPL 11336 [facility] ASTIN 5 Y Y TIME [facility] PARTIAL PLASMA/WH OLE BLOOD BASIC 27758 [facility] METABOLIC 5 Y Y [facility] CALCIUM TOTAL ECG 21613 [facility] ROUTINE 5 [facility] ECG HOSP HOSP W/LEAST 12 LDS TRCG ONLY W/O I&R BLOOD 98595 [facility] COUNT 5 Y Y [facility] AUTOMATED PROTHROMB 10943 [facility] IN TIME 5 Y Y [facility] THER 37317 [facility] PROPH/DX 5 Y Y [facility] PUSH SINGLE/1S T SBST/DRUG GROUND A0425 [facility]CUR[facility] MERCURY MILEAGE 5 AMBULANCE AMBULANCE PER SERV 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 SERV 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 STATUTE R R MILE COLLECTIO 44134 [facility] N VENOUS 5 [facility] BLOOD HOSP HOSP VENIPUNCT URE INJECTION J2550 [facility] 5 [facility] PROMETHAZ HOSP HOSP INE HCL UP TO 50 MG NONINVASI 88315 [facility] VE 5 [facility] EAR/PULSE HOSP HOSP [place] [address] [facility] AMYLASE 5 [facility]OSP COMPREHEN 80473 [facility] SIVE 5 [facility] METABOLIC HOSP HOSP PANEL ECG 81432 [facility] ROUTINE 5 [facility] ECG HOSP HOSP W/LEAST 12 LDS TRCG ONLY W/O I&R PROTHROMB 09813 [facility] IN TIME 5 [facility] HOSP FIBRIN 73738 [facility] DGRADJ 5 [facility] PRODUCTS HOSP HOSP D-[place] [address] [facility] LIPASE 5 [facility] H[facility]P INJECTION J2270 [facility] MORPHINE 5 [facility] SULFATE [facility] HOSP UP TO 10 MG BLOOD 09869 [facility] COUNT 5 [facility] COMPLETE HOSP HOSP AUTO&[place] [address] [facility] TROPONIN 5 [facility] QUANTITAT HOSP HOSP [place] NATRIURET 79137 C[facility] IC 5 [facility] PEPTIDE HOSP HOSP THERAPEUT 80519 [facility] IC 5 [facility] INJECTION HOSP [place] [address] [facility] INFUSION 5 [facility] THERAPY/P HOSP HOSP ROPHYLAXI S /DX 1ST TO 1 HR GROUND A0425 [facility] MILEAGE 5 AMBULANCE AMBULANCE PER SERVICE SERVICE STATUTE MILE RADIOLOGI 16665 [facility] C 5 [facility] EXAMINATI HOSP HOSP ON CHEST SINGLE VIEW FRONTAL THROMBOPL 61133 [facility] ASTIN 5 [facility] TIME HOSP HOSP PARTIAL PLASMA/WH OLE BLOOD AMB A0427 [facility] SERVICE 5 AMBULANCE AMBULANCE ALS SERVICE SERVICE EMERGENCY TRANSPORT LEVEL 1 CRITICAL 79396 [facility] 5 EMERGENCY ILL/INJUR PHYS PSC ED PATIENT INIT 30-74 [place] NFS 60856 [facility] THERAPY 5 [facility] PROPHYLAX [facility]P HOSP IS/DX CONCURREN T NFS THER 55410 [facility] PROPH/DX 5 [facility] NJX EA HOSP HOSP SEQL IV PUSH SBST/[place] [address] [facility] INFUSION 5 [facility] THERAPY [facility] HOSP PROPHYLAX IS/DX EA HOUR INJECTION J1885 JUDD PARKS JOCELIN 5 [facility] TROMETHAM INE PER 15 MG THERAPEUT 32822 [facility] SMITH JOCELIN IC 5 HEALTH PROPHYLAC MEDICAL TIC/DX GROUP INJECTION SUBQ/IM DETERMINA 30238 [facility] MICHAEL TION 5 MEDICAL MEGAN REFRACTIV SERV E STATE FOUNDATIO N OPHTH 59025 [facility] MEDICAL 5 MEDICAL MEGAN XM&EVAL SERV COMPRHNSV FOUNDATIO ESTAB PT N 1/> CHEMODERV 36612 [facility] TOÑITO ATE 5 [facility] FACIAL/TR MEDICAL IGEM/CERV GROUP [facility] MIGRAINE DIAGNOSTI G0206 MEHRAN LAURENT C 5 [facility] MAMMOGRAP INC INC HY INCL CAD WHEN PERF; [place] [address] MEHRAN LAURENT INFUSION 5 [facility] THERAPY INC INC PROPHYLAX [place] [address] [facility], PICKLESIM SURG 5 [facility] ER JR YEE PATHOLOGY GROSS&[place] [address] MEHRAN LAURENT INFUSION 5 [facility] THERAPY/P INC INC ROPHYLAXI S /DX 1ST TO 1 HR EGD 94670 MEHRAN LAURENT TRANSORAL 5 [facility] BIOPSY INC INC SINGLE/MU LTIPLE SPECIAL 92484 [facility], PICKLESIM STAIN 5 [facility] ER JR YEE GROUP 1 MICROORGA NISMS I&R CUL 23361 MEHRAN LAURENT PRSMPTV 5 [facility] PTHGNC INC INC ORGANISMS SCR DNS CHART BLOOD 93731 [facility] MEHRAN COUNT 5 [facility] COMPLETE INC INC AUTO&AUTO DIFRNTL WBC 25 04834 [facility] HYDROXY 5 [facility] INCLUDES [place] [address] [facility] HEON THYROID 5 [facility] STIMULATI INC INC NG HORMONE TSH COMPREHEN 33449 [facility] SIVE 5 [facility] METABOLIC INC INC PANEL COLLECTIO 29841 [facility] LAUR[facility] N VENOUS 5 [facility] BLOOD INC INC VENIPUNCT URE CHEMODERV 78928 ZOROASTRIAN TOÑITO ATE 5 [facility] FACIAL/TR MEDICAL IGEM/CERV GROUP [facility] RADIOLOGI [address] [place] CORNELIUS C 4 MEDICAL KOLBY EXAMINATI IMAGING ON CHEST ASS SINGLE VIEW FRONTAL ECG 17252 MEHRAN LAURENT ROUTINE 4 [facility] ECG INC INC W/LEAST 12 LDS TRCG ONLY W/O I&R CREATINE 03479 [facility] LAUR[facility] KINASE 4 [facility] TOTAL INC INC ECG 93819 MEHRAN DENT ROUTINE 4 [facility] W/LEAST P 12 LDS I&R ONLY BLOOD 25681 MEHR[facility] LAURENT COUNT 4 [facility] COMPLETE INC INC AUTO&AUTO DIFRNTL WBC URNLS DIP 11226 [facility] LAURENT 4 [facility] STICK/TAB INC INC [place] [address] MEHRAN LAURENT TROPONIN 4 [facility] QUANTITAT INC INC [place] CREATINE 19394 MEHRAN LAURENT KINASE MB 4 [facility] FRACTION INC INC ONLY COMPREHEN 04464 [facility]HR[facility] LAURENT SIVE 4 [facility] METABOLIC INC INC PANEL US BREAST 69390 [facility] REAL 4 MEDICAL JANET TIME IMAGING W/IMAGE ASS DOCUMENTA TION DIAGNOSTI G0206 [place] ALYCE C 4 MEDICAL JANET MAMMOGRAP IMAGING HY INCL ASS CAD WHEN PERF; UNI SWALLOWIN 95235 CENTRAL CENTRAL G FUNCJ 4 [facility] ZOROASTRIAN W/[facility] IOGRAPY/V IDRADIOG [facility] [address] [facility] AIDED 4 MEDICAL KOLBY DETECTION IMAGING ASS SCREENING MAMMOGRAP HY SCREENING G0202 [facility] PAREKH 4 MEDICAL KOLBY MAMMOGRAP IMAGING HY JOSELIN ASS INCL CAD WHEN PERFORMD GASTRIC 00042 MEHRAN LAURENT EMPTYING 4 [facility] IMAGING INC INC STUDY TECHNETIU A9541 MEHRAN LAURENT M TC-99M 4 [facility] SULFUR INC INC COLLOID DX UP TO 20 MCI LARYNGOSC 95060 [facility] VJ JOHNSON 4 PHYSICIAN AUGUSTINE FLEXIBLE S GROUP DIAGNOSTI C INJECTION 51153 ZOROASTRIAN TOÑITO 4 NEUROLOGY [facility] SINGLE/ML CENTER T TRIGGER [place] POINT 3/> MUSCLES INJECTION J1030 Z[facility]ASTRIAN TOÑITO 4 NEUROLOGY [facility] METHYLPRE CENTER DNISOLONE [place] ACETATE 40 MG INJECTION 12630 Z[facility]OASTRIAN TOÑITO 4 NEUROLOGY [facility] ANESTHETI CENTER C AGENT [place] [address] [facility], GARCIA SURG 4 [facility] PATHOLOGY GROSS&FEDE ROSCOPIC EXAM EGD 16876 [facility] SUJATHA SHAH TRANSORAL 4 PHYSICIAN MILY BIOPSY S GROUP SINGLE/[place] [address] MEHRAN LAURENT HPYLORI 4 [facility] INC INC SPECIAL 22745 [facility], GARCIA STAIN 4 [facility] GROUP 1 MICROORGA NISMS I&R INJECTION J1100 ZOROASTRIAN TOÑITO 4 NEUROLOGY [facility] DEXAMETHO CENTER SONE [place] SODIUM PHOSPHATE 1 MG ARTHROCEN 68484 ZOROASTRIAN TOÑITO TESIS 4 NEUROLOGY MA[facility]ICE ASPIR&/IN CENTER J MAJOR [place] JT/[place] [address] [facility] PAREKH TRANSVAGI 4 [place] [address] LABORATOR LABORATOR FERRITIN 4 Y Y CORPORATI CORPORATI ON OF AM ON OF AM 25 09-22-201 68072 LABORATOR LABORATOR HYDROXY 4 Y Y INCLUDES CORPORATI CORPORATI FRACTIONS ON OF AM ON OF AM IF PERFORMED LIPID 92349 LABORATOR LABORATOR PANEL 4 Y Y CORPORATI CORPORATI ON OF AM ON OF AM GENERAL 99855 LABORATOR LABORATOR HEALTH 4 Y Y PANEL CORPORATI CORPORATI ON OF AM ON OF AM CYTP 54045 LABORATOR LABORATOR CERV/VAG 4 Y DEVENDRA OF Y DEVENDRA OF AUTO THIN MANISH MAN[place] [address] LABORATOR LABORATOR IRON 4 Y Y CORPORATI CORPORATI ON OF AM ON OF AM THERAPEUT 90015 ZOROASTRIAN CALLUM IC 4 [facility] PROPHYLAC MEDICAL TIC/DX GROUP INJECTION SUBQ/IM INJECTION J3301 ZOROASTRIAN CALLUM 4 [facility] TRIAMCINO MEDICAL LONE GROUP ACETONIDE NOS 10 MG TENS E0720 EMPI INC EMPI INC DEVICE 4 TWO LEAD LOCALIZED STIMULATI ON TENS E0730 EMPI INC EMPI INC DEVICE 4 4/MORE LEADS MULTI NERVE STIMULATI ON INJECTION J3301 [facility]UM [facility] TRIAMCINO LONE ACETONIDE NOS 10 MG CYANOCOBA 08570 LAB DEVENDRA LAB DEVENDRA DAVID 4 [facility] VITAMIN [facility] HOLDINGS B-12 25 17158 LAB DEVENDRA LAB DEVENDRA HYDROXY 4 MANISH MANISH INCLUDES HOLDINGS [place] [address] LAB DEVENDRA LAB DEVENDRA TRIIODOTH 4 MANISH MANISH YRONINE HOLDINGS HOLDINGS T3 FREE HEMOGLOBI 06353 LAB DEVENDRA LAB DEVENDRA N 4 MANISH MANISH GLYCOSYLA HOLDINGS HOLDINGS KARLA A1C THERAPEUT 80989 CALLUM CALLUM IC 4 [facility] PROPHYLAC TIC/DX INJECTION SUBQ/[place] [address] LAB DEVENDRA LAB DEVENDRA IRON 4 [place] [address] LAB DEVENDRA LAB DEVENDRA FREE 4 MANISH MANISH [place] [address] LAB DEVENDRA LAB DEVENDRA THYROID 4 MANISH MANISH STIMULATI HOLDINGS HOLDINGS NG HORMONE TSH CULTURE 76264 LAB DEVENDRA LAB DEVENDRA BACTERIAL 4 [facility] HOLDINGS QUANTTATI VE COLONY COUNT URINE INJ J0702 FAYE MCKINNEY BETAMETHA 4 MAX MAX SONE ACETATE & PHOSPHATE 3 MG PHYSICAL 22227 [facility] THERAPY 4 [facility] EVALUATIO HOSP HOSP N TENS E0730 EMPI INC EMPI INC DEVICE 4 4/MORE LEADS MULTI NERVE STIMULATI ON THERAPEUT 35226 CROSSFIEL CROSSFIEL IC PX 1/> 4 D KOLBY D KOLBY AREAS EACH 15 MIN EXERCISES MANUAL 50594 CROSSFIEL CROSSFIEL THERAPY 4 D KOLBY D KOLBY TQS 1/> REGIONS EACH 15 MINUTES MANUAL 95050 CROSSFIEL CROSSFIEL THERAPY 4 D KOLBY D KOLBY TQS 1/> REGIONS EACH 15 MINUTES THERAPEUT 58281 CROSSFIEL CROSSFIEL IC PX 1/> 4 D KOLBY D KOLBY AREAS EACH 15 MIN EXERCISES THERAPEUT 51252 CROSSFIEL CROSSFIEL IC PX 1/> 4 D KOLBY D KOLBY AREAS EACH 15 MIN EXERCISES MANUAL 32643 CROSSFIEL CROSSFIEL THERAPY 4 D KOLBY D KOLBY TQS 1/> REGIONS EACH 15 MINUTES MANUAL 39814 CROSSFIEL CROSSFIEL THERAPY 4 D KOLBY D KOLBY TQS 1/> REGIONS EACH 15 MINUTES MANUAL 35775 CROSSFIEL CROSSFIEL THERAPY 4 D KOLBY D KOLBY TQS 1/> REGIONS EACH 15 MINUTES MANUAL 31611 CROSSFIEL CROSSFIEL THERAPY 4 D KOLBY D KOLBY TQS 1/> REGIONS EACH 15 MINUTES MANUAL 76833 CROSSFIEL CROSSFIEL THERAPY 4 D KOLBY D KOLBY TQS 1/> REGIONS EACH 15 MINUTES PHYSICAL 56937 PROFESSIO CROSSFIEL THERAPY 4 NAL REHAB D KOLBY EVALUATIO ASSOC N PSC DRUG SCR G0434 MARII HAM MARII HAM NOT 4 CHROMATOG RAPHIC; ANY NUMBER PT ENC MRI 28777 ALYCE ALYCE SPINAL 4 JANET JANET CANAL LUMBAR W/O CONTRAST MATERIAL MRI 49357 MEHRAN MEHRAN SPINAL 4 [facility] CANAL INC INC CERVICAL W/O CONTRAST MATRL 3D 92763 MEHRAN LAURENT RENDERING 4 [facility] W/INTERP INC INC & [place] [address] MEHRAN LAURENT VANILLYLM 4 [facility] ANDELIC INC INC ACID URINE METANEPHR 26269 MEHRAN LAURENT PHIL 4 [place] [address] MEHRAN LAURENT HYDROXYIN 4 [facility] DOLACETIC [place] AC[place] 5-[place] [address] MEHRAN LAURENT TRANSVAGI 4 [facility] [place] [address] MEHRAN LAURENT ALDOSTERO 4 [facility] NE INC INC INJ J0702 FAYE MCKINNEY BETAMETHA 4 MAX MAX SONE ACETATE & PHOSPHATE 3 MG INJECTION J3301 CALLUM VILLARREALIAM 4 I WHI TRIAMCINO LONE ACETONIDE NOS 10 MG THERAPEUT 75716 CALLUM NOLEN IC 4 I WHI PROPHYLAC TIC/DX INJECTION SUBQ/IM ECG 07191 [facility] CENTRAL ROUTINE 3 [facility]RIAN ZOROASTRIAN ECG HOSP HOSP W/LEAST 12 LDS TRCG ONLY W/O I&R PROTHROMB 93240 [facility] IN TIME 3 [place] [place] [facility] [place] [address] C[facility] LIPASE 3 [place] [address] [facility] AMYLASE 3 [facility] [place] [facility] REG BOARD COMPREHEN 71443 CENTRAL CENTRAL SIVE 3 ZOR[facility]AST[facility]AN [facility] METABOLIC HOSP HOSP PANEL COLLECTIO 39816 CENTRAL CENTR[facility] N VENOUS 3 [facility] BLOOD HOSP HOSP VENIPUNCT URE BLOOD 16544 CENTRAL [facility] COUNT 3 [facility] COMPLETE HOSP HOSP AUTO&[place] [address] CENTRAL CENTR[facility] TROPONIN 3 ZOROASTRIAN ZOROASTRIAN QUANTITAT HOSP HOSP [place]T 96033 CENTRAL CENTRAL IC 3 Z[facility]OASTRIAN [facility] PEPTIDE HOSP HOSP RADIOLOGI 98259 CENTRAL CENTRAL C 3 [facility] ZOROASTRIAN EXAMINATI HOSP HOSP ON CHEST SINGLE VIEW FRONTAL THROMBOPL 38111 KIT [facility] ASTIN 3 [place] [facility] MR TIME HOSP REG BOARD PARTIAL PLASMA/[place] [address] [facility] ANGIOGRAP 3 RADIOLOGY RADIOLOGY HY CHEST ASSOC ASSOC W/CONTRAS T/NONCONT RAST AMB A0427 [facility] SERVICE 3 MIKHAIL ELIZONDO ALS CO EMS CO EMS EMERGENCY TRANSPORT LEVEL 1 GROUND A0425 [facility] MILEA 3 MIKHAIL ELIZONDO PER CO EMS CO EMS STATUTE MILE Encounters Encounter Start End Date Code Location Performer Type Date OFFICE 48814 MEHRAN OUTPATIEN 7 7 [facility] T VISIT INC 10 MINUTES OFFICE 73012 LUDMILA KEYS OUTPATIEN 7 7 T VISIT 15 MINUTES [facility] MEHRAN - 7 7 [facility] OUTPATIEN INC [facility] MEHRAN - 7 7 [facility] OUTPATIEN INC [facility] MEHRAN - 7 7 MEM [facility]OS[facility] OUTPATIEN INC T OFFICE 93585 GRACE RODRIGUEZ OUTPATIEN 7 7 ORTHOPEDI T NEW 45 C MINUTES ASSOCIAT OFFICE 40037 ALEX JOHNSON OUTPATIEN 7 7 T VISIT 15 MINUTES OFFICE 37471 [facility] CONSULTAT 7 7 N ION NEUROLOGY NEW/ESTAB PATIENT 60 MIN OFFICE 10636 ZOROASTRIAN CLEVE OUTPATIEN 7 7 HEALTH T VISIT MEDICAL 25 GROUP MINUTES [facility] - 7 7 N OUTPATIEN COMMUNTIY T HOSPITA OFFICE 16450 ZOROASTRIAN CLEVE OUTPATIEN 7 7 HEALTH T VISIT MEDICAL 25 GROUP MINUTES HOSPITAL [facility] - 7 7 [facility] OUTPATIEN INC T OFFICE 69316 MEHRAN OUTPATIEN 7 7 [facility] T VISIT INC 10 MINUTES HOSPITAL [facility] - 7 7 [facility] OUTPATIEN INC T OFFICE 89494 MEHRAN OUTPATIEN 7 7 [facility] T VISIT INC 10 MINUTES OFFICE 04084 [facility] SUJATAH OUTPATIEN 7 7 PHYSICIAN T VISIT S GROUP 15 MINUTES OFFICE 89840 CAROLE MOLINAE OUTPATIEN 7 7 MEDICAL HERRERA T VISIT SERV 25 FOUNDATIO MINUTES N HOSPITAL MEHRAN - 7 7 [facility] OUTPATIEN INC T [facility] - 7 7 [facility] OUTPATIEN INC T OFFICE 19228 [facility] SUJATHA OUTPATIEN 7 7 PHYSICIAN T VISIT S GROUP 15 MINUTES HOSPITAL MEHRAN - 7 7 [facility] OUTPATIEN INC T OFFICE 78962 PAVAN MUELLER OUTPATIEN 7 7 MD ERVIN, T VISIT PSC 10 MINUTES HOSPITAL ME[facility]AN - 7 7 [facility] OUTPATIEN INC T EMERGENCY 60493 MARAL GARCIA DEPT 7 7 PHYSICIAN VISIT [facility], [facility] HIGH SEVER[facility]& THREAT [facility] MEHRAN - 7 7 [facility] OUTPATIEN INC T EMERGENCY 18201 MEHRAN 7 7 [facility] DEPARTMEN INC T VISIT HIGH/URGE NT SEVERITY [facility]OSPITAL [facility] - 7 7 [facility] OUTPATIEN INC T OFFICE 86441 [facility] ANDREW OUTPATIEN 7 7 PHYSICIAN OGHADDAM T VISIT S GROUP 15 MINUTES HOSPITAL ME[facility] - 6 6 [facility] OUTPATIEN INC T OFFICE 39291 MEHRAN OUTPATIEN 6 6 [facility] T VISIT INC 10 MINUTES HOSPITAL MEHR[facility] - 6 6 [facility] OUTPATIEN INC T OFFICE 00554 CAROLE TOLENTINO CONSULTAT 6 6 MEDICAL ION SERV NEW/ESTAB FOUNDATIO PATIENT N 30 MIN HOSPITAL MEHR[facility] - 6 6 [facility] OUTPATIEN INC T [facility] MEHRAN - 6 6 [facility] OUTPATIEN INC T OFFICE 16061 ZOROASTRIAN APPLE OUTPATIEN 6 6 HEALTH T VISIT MEDICAL 15 GROUP MINUTES HOSPITAL MEHRAN - 6 6 [facility] OUTPATIEN INC T OFFICE 84698 MEHRAN OUTPATIEN 6 6 [facility] T VISIT INC 10 MINUTES OFFICE 01838 PAVAN PINO OUTPATIEN 6 6 MD ERVIN, T VISIT PSC 15 MINUTES [facility] MEHRAN - 6 6 [facility] OUTPATIEN INC T OFFICE 39763 [facility] SAMIA KIM OUTPATIEN 6 6 NURSE T VISIT PRACTITIO 15 NER GR MINUTES HOSPITAL MEHRAN - 6 6 [facility] OUTPATIEN INC T EMERGENCY 46709 MEHRAN 6 6 [facility] DEPARTMEN INC T VISIT LOW/MODER SEVERITY [facility] N OUTPATIEN COMMUNTIY T HOSPITA OFFICE 24550 MEHRAN OUTPATIEN 6 6 [facility] T VISIT INC 10 MINUTES OFFICE 89811 PAVAN MONTANO OUTPATIEN 6 6 MD ERVIN, T VISIT PSC 15 MINUTES HOSPITAL ME[facility] - 6 6 [facility] OUTPATIEN INC T OFFICE 42367 [facility] SAMIA KIM OUTPATIEN 6 6 NURSE T NEW 30 PRACTITIO MINUTES NER GR OFFICE 43834 ZOROASTRIANDanay RODRIGUES OUTPATIEN 6 6 HEALTH T VISIT MEDICAL 15 GROUP MINUTES OFFICE 22735 MEHRAN OUTPATIEN 6 6 [facility] T VISIT INC 10 MINUTES HOSPITAL MEHRAN - 6 6 [facility] OUTPATIEN INC T OFFICE 87975 PAVAN MONTANO OUTPATIEN 6 6 MD ERVIN, T VISIT PSC 15 MINUTES HOSPITAL MEHRAN - 6 6 [facility] OUTPATIEN INC T OFFICE 79415 JOSE GO TRA OUTPATIEN 6 6 T VISIT ORTHOPAED 15 ICS PSC MINUTES OFFICE 48376 JUDD RODRIGUES OUTPATIEN 6 6 HEALTH T VISIT MEDICAL 15 GROUP MINUTES HOSPITAL MEHRAN - 6 6 [facility] OUTPATIEN INC T OFFICE 42937 JOSE GO OUTPATIEN 6 6 T VISIT ORTHOPAED 15 ICS PSC MINUTES OFFICE 15759 MEHRAN OUTPATIEN 6 6 [facility] T VISIT INC 10 MINUTES OFFICE 60965 PAVAN MONTANO OUTPATIEN 6 6 MD ERVIN, T VISIT PSC 15 MINUTES HOSPITAL MEHRAN - 6 6 [facility] OUTPATIEN INC T OFFICE 12295 MEHRAN DE LA O OUTPATIEN 6 6 [facility] T VISIT HOSPITAL 15 MINUTES OFFICE 08983 CAROLE ESCAMILLA OUTPATIEN 6 6 MEDICAL PAD T VISIT SERV 25 FOUNDATIO MINUTES [facility] MEHRAN - 6 6 [facility] OUTPATIEN INC T OFFICE 34834 PAVAN MONTANO OUTPATIEN 6 6 MD ERVIN, T VISIT PSC 15 MINUTES OFFICE 80177 [facility] DELA CRUZ OUTPATIEN 6 6 Medicine HOLLY T NEW 45 MINUTES OFFICE 20328 MEHRAN OUTPATIEN 6 6 [facility] T VISIT INC 10 MINUTES HOSPITAL LATTER-DAY - 6 6 HOSPITAL OUTPATIEN & [facility] OFFICE 49310 MEHRAN DE LA O OUTPATIEN [address] [facility] T VISIT HOSPITAL 15 MINUTES OFFICE 39801 JUDD RODRIGUES OUTPATIEN 6 6 HEALTH T VISIT MEDICAL 15 GROUP MINUTES OFFICE 17900 ZOROASTRIAN LILIA OUTPATIEN 6 6 HEALTH T VISIT MEDICAL 25 GROUP MINUTES OFFICE 80190 CAROLE JOHNSON OUTPATIEN 6 6 MEDICAL CLA T VISIT SERV 15 FOUNDATIO MINUTES N OFFICE 16972 [facility] ANDREW OUTPATIEN 6 6 PHYSICIAN TAWANNA COWART 45 S GROUP JAL MINUTES [facility] MEHRAN - 6 6 [facility] OUTPATIEN INC T OFFICE 04737 PAVAN MONTANO OUTPATIEN 6 6 MD ERVIN, T [facility] 30 PSC MINUTES [facility] MEHRAN - [address] [facility]EN INC T OFFICE 93585 MEHRAN SHARMA OUTPATIEN 6 6 [facility] VISIT HOSP[facility] 15 MINUTES OFFICE 99804 ZOROASTRIANDanay RODRIGUES OUTPATIEN 6 6 HEALTH YANY T VISIT MEDICAL 25 GROUP MINUTES [facility] MEHRAN - [address] [facility] OUTPATIEN INC T OFFICE 48824 CAROLE RODRIGUEZ OUTPATIEN 6 6 MEDICAL MEGAN T VISIT SERV 15 FOUNDATIO MINUTES N OFFICE 05381 ZOROASTRIANDanay DAHL OUTPATIEN 6 6 HEALTH T VISIT MEDICAL 25 GROUP MINUTES OFFICE [address] OUTPATIEN [address] [facility] T VISIT [facility] 15 MINUTES OFFICE [address] OUTPATIEN 6 6 [facility] 15 MINUTES EMERGENCY 05428 MARAL GARCIA 6 6 PHYSICIAN XIAO SKELTON S, [facility] T VISIT HIGH/URGE NT [facility] HOSPITAL MEHRAN - 6 6 [facility] OUTPATIEN INC T OFFICE 58061 MEHRAN SHARMA OUTPATIEN 5 5 [facility] 15 MINUTES EMERGENCY 30447 [facility] 5 PHYSICIAN U KOLBY VISIT S, [facility] HIGH SEVERITY& THREAT [facility] MEHRAN - 5 5 [facility] OUTPATIEN INC T OFFICE 39249 ZOROASTRIAN MORRIN OUTPATIEN 5 5 HEALTH YANY T VISIT MEDICAL 15 GROUP MINUTES OFFICE 47568 GASTROENT CASE JUS CONSULTAT 5 5 EROLOGY ION AND NEW/ESTAB HEPATOL PATIENT 60 MIN OFFICE [address] OUTPATIEN 5 5 [facility] 15 MINUTES OFFICE 19807 [facility] SUJATHA SHAH OUTPATIEN 5 5 PHYSICIAN MILY T VISIT S GROUP 15 MINUTES OFFICE 23913 Z[facility]ASTRIAN MORRIN OUTPATIEN 5 5 HEALTH YANY T VISIT MEDICAL 25 GROUP MINUTES [facility] MEHRAN - 5 5 [facility] OUTPATIEN INC T OFFICE 78526 CAROLE RODRIGUEZ OUTPATIEN 5 5 MEDICAL MEGAN T VISIT SERV 10 FOUNDATIO MINUTES N OFFICE 46922 ZOROASTRIAN LIZETTRIN OUTPATIEN 5 5 HEALTH YANY T VISIT MEDICAL 15 GROUP MINUTES OFFICE 86892 ZOROASTRIAN KASEY MONREAL OUTPATIEN 5 5 HEALTH T VISIT MEDICAL 25 GROUP MINUTES OFFICE 25893 [place] JOHNSON OUTPATIEN 5 5 MEDICAL CLA T VISIT SERV 10 FOUNDATIO MINUTES N OFFICE 65071 ZOROASTRIAN TAYLOR CONSULTAT 5 5 HEALTH OFE ION MEDICAL NEW/ESTAB GROUP PATIENT 40 MIN OFFICE 37737 [place] TEAGAN ANT OUTPATIEN 5 5 MEDICAL T VISIT SERV 25 FOUNDATIO MINUTES N OFFICE 31887 ZOROASTRIAN APPLE OUTPATIEN 5 5 HEALTH ANT T VISIT MEDICAL 15 GROUP MINUTES HOSPITAL MEHRAN - 5 5 [facility] OUTPATIEN INC T OFFICE 87135 [place] LATONYA CONSULTAT 5 5 MEDICAL MAX ION SERV NEW/ESTAB FOUNDATIO PATIENT N 60 MIN EMERGENCY 57680 UNIVERSIT DEPT 5 5 Y VISIT HOSPITAL HIGH SEVERITY& THREAT FUNCJ EMERGENCY 73039 CAROLE WHITE 5 5 MEDICAL SET DEPARTMEN SERV T VISIT FOUNDATIO HIGH/URGE N NT [facility] HOSPITAL UNIVERSIT - 5 5 Y OUTPATIEN [facility] CENTRAL - 5 5 [facility] OUTPATIEN HOSP T EMERGENCY 56912 CENTRAL DEPT 5 5 Z[facility]AN VISIT HOSP HIGH SEVERITY& THREAT [facility] OFFICE 34042 ZOROASTRIANDanay MONREAL OUTPATIEN 5 5 HEALTH T VISIT MEDICAL 15 GROUP MINUTES OFFICE 66680 ZOROASTRIAN TOÑITO OUTPATIEN 5 5 HEALTH MAURICE T VISIT MEDICAL 15 GROUP MINUTES HOSPITAL MEHRAN - 5 5 [facility] OUTPATIEN INC [facility] MEHRAN - 5 5 [facility] OUTPATIEN [facility] T OFFICE 83493 [place] TEAGAN ANT OUTPATIEN 5 5 MEDICAL T VISIT SERV 25 FOUNDATIO MINUTES HOSPITAL MEHRAN - 5 5 [facility] OUTPATIEN INC T OFFICE 07401 [place] TEAGAN ANT OUTPATIEN 5 5 MEDICAL T NEW 45 SERV MINUTES FOUNDATIO N OFFICE 69087 ZOROASTRIAN TOÑITO OUTPATIEN 5 5 HEALTH MAURICE T VISIT MEDICAL 15 GROUP MINUTES OFFICE 90655 [facility] VJ OUTPATIEN 4 4 PHYSICIAN FRA T VISIT S GROUP 15 MINUTES EMERGENCY 86902 MEHRAN 4 4 [facility] DEPARTMEN INC T VISIT MODERATE SEVERITY [facility]OSPITAL MEHRAN - 4 4 [facility] OUTPATIEN INC T OFFICE 45227 [facility] SUJATHA JR OUTPATIEN 4 4 PHYSICIAN MILY T VISIT S GROUP 15 MINUTES HOSPITAL MEHRAN - 4 4 [facility] OUTPATIEN INC T OFFICE 69252 ZOROASTRIAN TOÑITO OUTPATIEN 4 4 NEUROLOGY MAURICE T VISIT CENTER 25 KORINA MINUTES [facility] CENTRAL - 4 4 [facility] OUTPATIEN HOSP [facility] MEHRAN - 4 4 [facility] OUTPATIEN INC T OFFICE 69455 SIMON CHIU OUTPATIEN 4 4 ANT T VISIT CARDIOLOG 15 Y AT [facility] MEHRAN - 4 4 [facility] OUTPATIEN INC T OFFICE 91955 FAYE MCKINNEY OUTPATIEN 4 4 MAX MAX T VISIT 15 MINUTES OFFICE 55605 [facility] VJ OUTPATIEN 4 4 PHYSICIAN AUGUSTINE T NEW 30 S GROUP MINUTES OFFICE 48522 [facility] SUJATHA SHAH OUTPATIEN 4 4 PHYSICIAN MILY T VISIT S GROUP 15 MINUTES [facility] MEHRAN - 4 4 [facility] OUTPATIEN INC T OFFICE 78159 ZOROASTRIAN TOÑITO OUTPATIEN 4 4 NEUROLOGY MAURICE T VISIT CENTER 25 KORINA MINUTES OFFICE 92565 SIMON [place] OUTPATIEN 4 4 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 CAROL ANN T NEW 30 ASSOCIATE MINUTES S, OFFICE 58835 [facility] SUJATHA SHAH OUTPATIEN 4 4 PHYSICIAN MILY T NEW 30 S GROUP MINUTES HOSPITAL MEHRAN - 4 4 [facility] OUTPATIEN INC T OFFICE 26907 ZOROASTRIAN TOÑITO OUTPATIEN 4 4 NEUROLOGY MAURICE T VISIT CENTER 25 KORINA MINUTES PERIODIC 34980 CALLUM LEONARDM PREVENTIV 4 4 WHI WHI E MED EST PATIENT 40-64YRS OFFICE 13653 ZOROASTRIAN CALLUM OUTPATIEN 4 4 HEALTH WHI T VISIT MEDICAL 15 GROUP MINUTES OFFICE 78946 CALLUM CALLUM OUTPATIEN 4 4 WHI WHI T VISIT 25 MINUTES OFFICE 97386 APPLENORRIS CHIU OUTPATIEN 4 4 ANT ANT T VISIT 15 MINUTES OFFICE 45370 FAYE MCKINNEY OUTPATIEN 4 4 MAX MAX T VISIT 15 MINUTES HOSPITAL CENTRAL - 4 4 [facility] OUTPATIEN HOSP T OFFICE 81910 VASCELLO VASCELLO OUTPATIEN 4 4 GIANNI GIANNI T VISIT 25 MINUTES OFFICE 30612 APPLE CHIU OUTPATIEN 4 4 ANT ANT T VISIT 15 MINUTES OFFICE 06732 MARII HAM MARII HAM OUTPATIEN 4 4 T NEW 45 MINUTES OFFICE 19644 CALLUM CALLUM OUTPATIEN 4 4 I WHI T VISIT 15 MINUTES OFFICE 98452 GO TRA GO TRA OUTPATIEN 4 4 T VISIT 15 MINUTES OFFICE 84542 CALLUM CALLUM OUTPATIEN 4 4 WHI WHI T VISIT 25 MINUTES OFFICE 41391 APPLENORRIS CHIU OUTPATIEN 4 4 ANT ANT T VISIT 15 MINUTES OFFICE 68405 UNIVERSIT OUTPATIEN 4 4 Y T VISIT 5 [facility] - [address] [facility] MEHRAN - 4 4 [facility] OUTPATIEN INC T OFFICE 31484 GO TRA GO TRA CONSULTAT 4 4 ION NEW/ESTAB PATIENT 60 MIN OFFICE 79066 APPLE CHIU OUTPATIEN 4 4 ANT ANT T VISIT 25 MINUTES OFFICE 94566 ARNMALLY MCKINNEY OUTPATIEN 4 4 MAX MAX T NEW 30 MINUTES OFFICE 00135 CALLUM NOLEN OUTPATIEN 4 4 WHI WHI T VISIT 25 MINUTES Emergency AMI Villeda MD (ER) 3 22:53 3 00:33 [facility] EMERGENCY [address] [place] [place] 3 3 [facility] DEPARTMEN HOSP T VISIT MODERATE SEVERITY HOSPITAL [facility]TRAL - 3 3 [facility] OUTPATIEN HOSP T EMERGENCY 60461 [facility] DE[facility] 3 3 EMERGENCY VISIT PHYS PSC HIGH SEVERITY& THREAT [facility]J Emergency AMI Dent MD (ER) 3 19:06 3 20:57 [facility] Emergency AMI SANCHEZ (ER) 3 21:25 3 01:44 [facility]
--- OUTSIDE RECORDS SUMMARY | 2017-07-01 19:23 | External Medical Summary Rpt ---
Author Author , MARLA Ochoa MARLA Address Unknown Phone [email or web address] Providers Care Actuarial Consultant Name Role Phone ALLRAN JR, ALLRAN JR Unavailable Unavailable ALLRAN JR MILY, ALLRAN Unavailable Unavailable JR MILY PAVAN MUELLER MD, PSC, Unavailable Unavailable PAVAN MUELLER MD, PSC ARNOLD MAX, ARNOLD Unavailable Unavailable MAX ARNOLD MAX, ARNOLD Unavailable Unavailable MAX [facility] Unavailable Unavailable MEDICAL GROUP, [facility] Unavailable Unavailable [facility], [facility] BEINEKE, BEINEKE Unavailable Unavailable JIMENEZ TER, JIMENEZ TER Unavailable Unavailable BESSON OFE, BESSON Unavailable Unavailable OFE [facility] Unavailable Unavailable [facility], [facility] SANTIAGO, SANTIAGO Unavailable Unavailable TEAGAN ANT, TEAGAN ANT Unavailable Unavailable MICHAEL, MICHAEL Unavailable Unavailable MICHAEL MEGAN, MICHAEL Unavailable Unavailable MEGAN [facility] Unavailable Unavailable SERVICE, [facility] Unavailable Unavailable SERVICE, [facility] BUX, BUX Unavailable Unavailable BUX ANJ, BUX ANJ Unavailable Unavailable [facility], Unavailable Unavailable LLC, [facility], Unavailable Unavailable LLC, [facility] Unavailable Unavailable CONSULTANTS O, [facility] CASE JUS, CASE JUS Unavailable Unavailable [facility], Unavailable Unavailable [facility] Unavailable Unavailable PHYS [facility], [facility] Unavailable Unavailable [facility], [facility] Unavailable Unavailable THE BL[facility], [facility] MARKS HESHAM, MARKS HESHAM Unavailable Unavailable JAYLYN MOTA, Unavailable Unavailable JAYLYN MOTA CROSSFIELD KOLBY, Unavailable Unavailable CROSSFIELD KOLBY CROSSFIELD KOLBY, Unavailable Unavailable CROSSFIELD KOLBY ALYCE JANET, Unavailable Unavailable AYLCE JANET ALYCE JANET, Unavailable Unavailable ALYCE JANET ZACHARY FEDE, ZACHARY Unavailable Unavailable FEDE DUFF, DUFF Unavailable Unavailable DUFF CHARMAINE, DUFF CHARMAINE Unavailable Unavailable TOÑITO MAURICE, Unavailable Unavailable TOÑITO MAURICE [facility], [facility] Unavailable Unavailable [facility], [facility] Unavailable Unavailable JOHNSON, JOHNSON Unavailable Unavailable JOHNSON, JOHNSON Unavailable Unavailable JOHNSON CLA, JOHNSON Unavailable Unavailable CLA JAROD FEDE, JAROD Unavailable Unavailable [facility], [facility], Unavailable Unavailable [facility] Unavailable Unavailable EMS, [facility] CALLUM WHI, CALLUM Unavailable Unavailable WHI CALLUM WHI, CALLUM Unavailable Unavailable I [facility] Unavailable Unavailable INC, [facility] Unavailable Unavailable HOSPITAL, [facility] Unavailable [facility]available HOSPITAL P, [facility], Unavailable Unavailable [facility] GO, GO Unavailable Unavailable GO TRA, GO TRA Unavailable Unavailable GO TRA, GO TRA Unavailable Unavailable ESPINOSA LEL, ESPINOSA LEL Unavailable Unavailable [facility] Unavailable [facility], [facility] Unavailable Unavailable IMAGING [facility], [facility] Unavailable Unavailable ASSOCIAT, [facility] TAYLOR OFE, TAYLOR Unavailable Unavailable OFE CLEVE, CLEVE Unavailable Unavailable [facility] NURSE Unavailable Unavailable PRACTITIONER GR, [facility] NURSE PRACTITIONER GR MITCH RIOS, KOTTRAJ Unavailable Unavailable [facility] Unavailable [...] DWI, BRIAN Unavailable Unavailable JR DWI [facility] Unavailable Unavailable ASSOCIATES,, [facility], GARCIA MAX, GARCIA Unavailable Unavailable MAX MARII HAM, MARII HAM Unavailable Unavailable MARII HAM, MARII HAM Unavailable Unavailable APPLE, APPLE Unavailable Unavailable APPLE ANT, APPLE Unavailable Unavailable ANT APPLE ANT, APPLE Unavailable Unavailable ANT LUDMILA KEYS Unavailable Unavailable LUDMILA KEYS Unavailable Unavailable LUDMILA GRE, Unavailable Unavailable LUDMILA GRE LUDMILA GRE, Unavailable Unavailable LUDMILA GRE HANKS MAX, HANKS Unavailable Unavailable MAX [facility] Unavailable Unavailable SERV ANALYSIS MGR R, [facility] MGR R [facility] Unavailable Unavailable SERV ANALYSIS MGR R, [facility] ANALYSIS MGR R MONGIARDO FRA, Unavailable Unavailable MONGIARDO FRA MORRIN, MORRIN Unavailable Unavailable MORRIN YANY, MORRIN Unavailable Unavailable YANY [facility] Unavailable Unavailable BOARD, [facility] Unavailable [facility], Unavailable Unavailable PLLC, [facility], [facility] Unavailable Unavailable PICKLESIMER JR YEE, Unavailable Unavailable PICKLESIMER JR YEE TOLENTINO, TOLENTINO Unavailable Unavailable RICE N., RICE N. Unavailable Unavailable FLORENTIN SUSAN, FLORENTIN SUSAN Unavailable Unavailable SCALF, SCALF Unavailable Unavailable ESSIE CAROL ANN, ESSIE Unavailable Unavailable CAROL ANN [facility], Unavailable Unavailable [facility] Unavailable Unavailable JAL, [facility]AL FINESSE MAT, Unavailable Unavailable FINESSE MAT BRIGHT III JAM, Unavailable Unavailable BRIGHT III JAM PADILLA JAVI, PADILLA Unavailable Unavailable JAVI PARKS, PARKS Unavailable Unavailable PARKS, PARKS Unavailable Unavailable PARKS JOCELIN, PARKS JOCELIN Unavailable Unavailable SOTINGEANU KOLBY, Unavailable Unavailable SOTINGEANU KOLBY CHEMA, CHEMA Unavailable Unavailable SPOONAMORE, Unavailable Unavailable SPOONAMORE STEARLEY SET, Unavailable Unavailable STEARLEY SET JOSE DE JESUS HOLLY, JOSE DE JESUS Unavailable Unavailable HOLLY FRANCINE PAD, Unavailable Unavailable FRANCINE PAD [facility] Unavailable Unavailable [facility] Medicine, [facility] Unavailable Unavailable [facility], Unavailable Unavailable [facility] VASCELLO GIANNI, Unavailable Unavailable VASCELLO GIANNI VASCELLO GIANNI, Unavailable Unavailable VASCELLO GIANNI WALKER, WALKER Unavailable Unavailable WALKER FOR, WALKER Unavailable Unavailable FOR HAROLDO HERRERA, HAROLDO Unavailable Unavailable HERRERA WHITE JUDY, WHITE JUDY Unavailable Unavailable Purpose Continuity of Care Document - 09-05-2013 through 2016 Problems Code Diagnosis DOS Provider Status [id number] OTHER 05-25-2017 [facility] VITREOUS OPACITIES RIGHT EYE H538 OTHER 05-25-2017 [facility] VISUAL DISTURBANCE S M5030 OT 05-25-2017 [facility] CERVICAL [facility] DISC INC DEGENERATIO N UNS CERV REGION M5136 OT 05-20-2017 [facility], RAL DISC LLC DEGEN LUMBAR REGION M5010 CERVICAL 05-06-2017 PAVAN BUX, DISC D/O MD, PSC W/RADICULOP ATHY UNS CERV RGN M5116 INTERVERTEB 05-06-2017 FIONA ENGLAND MD, PSC D/O W/RADICULOP ATHY LUMB RGN M961 POSTLAMINEC 05-06-2017 [facility] JUSTINO [facility] SYNDROME INC NEC R52 PAIN 05-06-2017 COMMUNITY UNSPECIFIED ANESTH OF THE BLUE T00272 ENCOUNTER 05-01-2017 [facility] FOR OTHER MEM HOS[facility] PREPROCEDUR INC AL EXAMINATION Z0100 ENCOUNTER 04-27-2017 [facility] EXAM EYES & VISION W/O ABNORMAL FIND M7062 TROCHANTERI 04-20-2017 GRACE Kellogg [facility] LEFT HIP ASSOCIAT V17247 LATTICE 04-15-2017 ALEX DEGENERATIO N OF RETINA BILATERAL H5310 UNSPECIFIED 04-15-2017 [facility] SUBJECTIVE VISUAL DISTURBANCE S Q0700 ARNOLD-KEAGAN 04-15-2017 ALEX RI SYND W/O SPINA BIFIDA/HYDR OCEPHLUS K63891 MIGRAINE 04-09-2017 [facility] W/O AURA NEUROLOGY INTRACT W/O STAT MIGRAINOSUS G8929 OTHER 04-09-2017 [facility] CHRONIC HEALTH PAIN MEDICAL GROUP J0140 ACUTE 04-09-2017 [facility] PANSINUSITI HEALTH S MEDICAL UNSPECIFIED GROUP L01343 PAIN IN 04-09-2017 [facility] LEFT HIP HEALTH MEDICAL GROUP R51 HEADACHE 04-09-2017 [facility] R600 LOCALIZED 04-09-2017 [facility]MA [facility]TI[facility]PITA E039 HYPOTHYROID 04-02-2017 [facility] ISM HEALTH UNSPECIFIED MEDICAL GROUP J0100 ACUTE 04-02-2017 [facility] MAXILLARY HEALTH SINUSITIS MEDICAL UNSPECIFIED GROUP M549 DORSALGIA 04-02-2017 [facility] UNSPECIFIED HEALTH MEDICAL GROUP M5412 RADICULOPAT 03-16-2017 [facility] HY CERVICAL MEM HOS[facility] REGION INC M5416 RADICULOPAT 03-16-2017 [facility] HY LUMBAR MEM HOS[facility] REGION INC K3184 GASTROPARES 02-06-2017 [facility] IS PHYSICIANS GROUP D259 LEIOMYOMA 02-05-2017 [place] [facility] OF UTER[place] SERV UNSPECIFIED FOUNDATION I10 ESSENTIAL 02-05-2017 [place] [facility] PRIMARY SERV HYPERTENSIO FOUNDATION N U52456 UNSPECIFIED 02-05-2017 [place] [facility] OVARIAN SERV CYST RIGHT FOUNDATION SIDE Y08357 UNSPECIFIED 02-05-2017 [place] [facility] O[facility]IAN SERV CYST LEFT FOUNDATION SIDE N898 OTHER 02-05-2017 [place] [facility] SPECIFIED SERV NONINFLAMMA FOUNDATION TORY DISORDERS VAGINA R978 OTHER 02-05-2017 [place] [facility] ABNORMAL SERV TUMOR FOUNDATION MARKERS Z8041 FAMILY 02-05-2017 [place] [facility] HISTORY OF SERV MALIGNANT FOUNDATION NEOPLASM OF OVARY R1032 LEFT LOWER 01-30-2017 [place] [facility] PAIN IMAGING ASS R1013 EPIGASTRIC 01-20-2017 COMMUNITY PAIN ANESTH OF THE BLUE K651 PERITONEAL 01-05-2017 [facility] ABSCESS PHYSICIANS GROUP G4719 OTHER 12-31-2016 [facility] [...] 12-11-2016 LAB DEVENDRA OF [facility] MICTURITION HOLDINGS K97373 UNSPECIFIED 11-10-2016 [facility] OVARIAN [facility] CYST INC UNSPECIFIED SIDE M791 MYALGIA 10-17-2016 [facility] INC G909 DISORDER 09-30-2016 [facility] AUTONOMIC MEDICAL NERVOUS GROUP SYSTEM UNS R072 PRECORDIAL 09-30-2016 [facility] PAIN HEALTH MEDICAL GROUP E782 MIXED 09-26-2016 LAB DEVENDR[facility] HYPERLIPIDE MANISH HERIBERTO HOLDINGS F17778 ENCOUNTER 09-26-2016 [facility], UPHOLSTERY HANDLER EXAM LLC GENERAL RTN W/O ABNORMAL FIND Z1151 ENCOUNTER 09-26-2016 [facility], FOR LLC SCREENING FOR HUMAN PAPILLOMAVI IVET L659 NONSCARRING 09-12-2016 [facility] HAIR LOSS [facility] UNSPECIFIED INC [id number] LAC W/O FB 09-01-2016 [facility] RT MIDDLE [facility] FINGER W/O INC DAMAGE NAIL INIT [id number] LAC W/O FB 09-01-2016 [facility] UNS FINGER PHYSICIANS, W/O DAMAGE PLLC NAIL INITIAL [id number] CONTACT OTH 09-01-2016 [facility]ARP [facility] OBJECT NOT INC ELSWHERE CLASS INIT H71279 KITCHEN 09-01-2016 [facility] SINGLE-FAM [facility] HOUSE PLACE INC OCCUR EXT CAUSE Z23 ENCOUNTER 09-01-2016 [facility] FOR MEM HOSP IMMUNIZATIO INC N M4806 SPINAL 08-27-2016 [facility] STENOSIS COMMUNTIY LUMBAR HOSPITA REGION M5126 OTH 08-27-2016 [facility] INTERVERTEB COMMUNTIY RAL DISC HOSPITA DISPLACEMEN T LUMBAR RGN M542 CERVICALGIA 08-25-2016 [facility]ANS GROUP D229 MELANOCYTIC 08-07-2016 [facility] NURSE NEVI PRACTITIONE UNSPECIFIED R GR I868 VARICOSE 08-07-2016 [facility] NURSE VEINS OF PRACTITIONE OTHER R GR SPECIFIED SITES L709 ACNE 08-07-2016 [facility] NURSE UNSPECIFIED PRACTITIONE R GR R601 GENERALIZED 08-05-2016 LAB DEVENDRA EDEMA MANISH HOLDINGS M8580 OTH SPEC 07-08-2016 [facility] D/O [facility] DENSITY MEDICAL STRUCTURE GROUP UNS SITE M545 LOW BACK 07-03-2016 [facility] PAIN ORTHOPAEDIC S PSC M461 SACROILIITI 06-27-2016 [facility] S NOT MEM HOSP ELSEWHERE INC CLASSIFIED H5213 MYOPIA 06-12-2016 [facility] BILATERAL SERV FOUNDATION H5319 OTHER 06-12-2016 [facility] SUBJECTIVE SERV VISUAL FOUNDATION DISTURBANCE S N83094 CHRONIC 05-14-2016 [facility] MIGRAINE [facility]ALTH W/O AURA MEDICAL INTRACT W/O GROUP STAT MIGR M810 AGE-RELATED 05-09-2016 [facility] OSTEOPOROSI INC S W/O CURRNT PATH FX Z1231 ENCOUNTER 05-09-2016 [place] SCREENING MEDICAL MAMMO MALIG IMAGING ASS NEOPLASM BREAST Y17983 ENCOUNTER 05-09-2016 [place] FOR MEDICAL SCREENING IMAGING ASS FOR OSTEOPOROSI S K5909 OTHER 05-06-2016 [facility] CONSTIPATIO Medicine N K591 FUNCTIONAL 05-06-2016 [facility] DIARRHEA Medicine M4800 SPINAL 05-06-2016 [facility] UNSPEC[facility] R140 ABDOMINAL 05-06-2016 [facility] DISTENSION Medicine GASEOUS R6881 EARLY 05-06-2016 [facility] SATIETY Medicine R5382 CHRONIC 04-29-2016 [facility] UNSPECIFIED MEDICAL GROUP R5383 OTHER 04-18-2016 LAB DEVENDRA FATIGUE MANISH HOLDINGS R42 DIZZINESS 04-07-2016 [facility] AND PHYSICIANS GIDDINESS GROUP F360H4H CONCUSSION 04-07-2016 [facility] WITHOUT LOC PHYSICIANS INITIAL GROUP ENCOUNTER I28191 ACUTE 03-02-2016 [facility] SUPPURATIVE MEMORIAL OM W/O HOSPITAL RUPT EAR DRUM UNS EAR R110 NAUSEA 02-27-2016 [facility] [id number] CONCUSSION 02-27-2016 [facility] W/LOC UNS HEALTH DURATION MEDICAL INITIAL GROUP ENCOUNTER M1611 UNILATERAL 01-29-2016 [place] PRIMARY MEDICAL OSTEOARTHRI IMAGING ASS TIS RIGHT HIP X47722 PAIN IN 01-29-2016 [place] RIGHT HIP MEDICAL IMAGING ASS H5210 MYOPIA 01-15-2016 [place] MEDICAL UNSPECIFIED SERV EYE FOUNDATION H5203 HYPERMETROP 12-27-2015 [facility] IA GRE BILATERAL J069 ACUTE UPPER 12-13-2015 LAB DEVENDRA MAN[facility] RESPIRATORY HOLDINGS INFECTION UNSPECIFIED R928 OTH ABNORM 12-13-2015 [facility] & HEALTH INCONCLUSIV MEDICAL E FIND ON GROUP DX IMAG BREAST Z6829 BODY MASS 12-13-2015 [facility] INDEX BMI HEALTH 29.0-29.9 MEDICAL ADULT GROUP J0190 ACUTE 12-09-2015 [facility] SINUSITIS [facility] R05 COUGH 11-16-2015 MARALRadha ASTUDILLO, [facility] M5430 SCIATICA 10-17-2015 [facility] UNSPECIFIED HEALTH SIDE MEDICAL GROUP H539 UNSPECIFIED 10-04-2015 [facility] VISUAL HEALTH DISTURBANCE MEDICAL GROUP R358 OTHER 10-04-2015 [facility] POLYURIA HEALTH MEDICAL GROUP R079 CHEST PAIN 10-02-2015 [place] MEDICAL UNSPECIFIED SERV FOUNDATION R9431 ABNORMAL 10-02-2015 [facility] ELECTROCARD LAR IOGRAM CONSULTANTS O G38531 OTHER LONG 10-01-2015 [facility] TERM PHYSICIANS CURRENT GROUP DRUG THERAPY Z0000 ENCOUNTER 09-25-2015 [facility] GEN ADULT HEALTH MED EXAM MEDICAL W/O GROUP ABNORMAL FIND A6000 HERPESVIRAL 08-17-2015 [facility] INFECTION HEALTH OF MEDICAL UROGENITAL GROUP SYSTEM UNS B009 HERPESVIRAL 08-17-2015 [facility] INFECTION HEALTH UNSPECIFIED MEDICAL GROUP Z202 CONTACT 08-17-2015 [facility] WITH HEALTH EXPOSURE MEDICAL INFECT GROUP SEXUAL MODE TRANSMS 78552 DEGEN 07-26-2015 [place] LUMBAR/LUMB MEDICAL OSACRAL IMAGING ASS INTERVERTEB RAL DISC 7242 LUMBAGO 07-26-2015 [facility] 36080 PROGRESSIVE 07-25-2015 [facility] HIGH SERV MYOPIA FOUNDATION 97734 CHRONIC 07-11-2015 [facility] MIGRAINE HEALTH W/O MEDICAL W/INTRACTAB GROUP LE W/O SM 7231 CERVICALGIA 07-11-2015 [facility] MEDICAL GROUP 7049 UNSPECIFIED 07-02-2015 [facility] DISEASE OF HEALTH HAIR AND MEDICAL HAIR GROUP FOLLICLES 7245 UNSPECIFIED 07-02-2015 [facility] BACKACHE HEALTH MEDICAL GROUP 7881 DYSURIA 07-02-2015 LAB DEV[facility] HOLDINGS 3384 CHRONIC 06-22-2015 LAB DEV[facility]DRA PAIN MAN[facility] SYNDROME HOLDINGS 5990 URINARY 06-22-2015 LAB DEVENDRA TRACT MAN[facility] INFECTION HOLDINGS SITE NOT SPECIFIED 12816 OTHER 06-15-2015 [facility] VITREOUS SERV OPACITIES FOUNDATION 5363 GASTROPARES 05-14-2015 [facility] IS SERV FOUNDATION 5609 UNSPECIFIED 05-14-2015 [facility] INTESTINAL SERV FOUNDATION OBSTRUCTION 7873 FLATULENCE 05-14-2015 [facility] ERUCTATION SERV AND GAS FOUNDATION PAIN 4011 ESSENTIAL 05-01-2015 [facility] HYPERTENSIO HEALTH N, BENIGN MEDICAL GROUP 75968 ACUTE 05-01-2015 [facility] IDIOPATHIC HEALTH PERICARDITI MEDICAL S GROUP 02008 OTHER CHEST 05-01-2015 [facility] PAIN [facility] MEDICAL GROUP V7281 PRE-OPERATI 05-01-2015 [facility] CARDIOVASCU MEDICAL LAR GROUP EXAMINATION 7213 LUMBOSACRAL 04-23-2015 [place] [facility] SPONDYLOSIS IMAGING ASS WITHOUT MYELOPATHY 10452 DISPLCMT 04-23-2015 [place] LUMBAR [facility] INTERVERT IMAGING ASS DISC W/O MYELOPATHY 04277 LATTICE 04-20-2015 [facility] MEDICAL DEGENERATIO SERV N OF FOUNDATION PERIPHERAL RETINA 2449 UNSPECIFIED 04-08-2015 [facility] HYPOTHYROID ISM 3671 MYOPIA 04-08-2015 [facility] 23550 OTHER 04-08-2015 [facility] DISTORTIONS AND ENTOPTIC PHENOMENA 3688 OTHER 04-08-2015 [place] MEDICAL SPECIFIED SERV VISUAL FOUNDATION DISTURBANCE S 86668 PAIN IN OR 04-08-2015 [facility] 4019 UNSPECIFIED 04-08-2015 [facility] HYPERTENSIO N 4239 UNSPECIFIED 04-08-2015 [facility] DISEASE [facility] PERICARDIUM 4289 UNSPECIFIED 04-08-2015 [facility] FAILURE SERV ANALYSIS MGR R 37524 OTHER 04-08-2015 [facility] LUNG NOT ELSEWHERE CLASSIFIED 93557 CHEST PAIN 04-08-2015 [place] MEDICAL UNSPECIFIED SERV FOUNDATION V1259 PERS HX, 04-08-2015 [facility] MEDICAL OTHER SERV DISEASES OF FOUNDATION CIRCULATORY SYSTEM 3699 UNSPECIFIED 04-07-2015 [facility] VISUAL EMERGENCY LOSS PHYS PSC 35630 UNSPECIFIED 04-07-2015 [facility] DISORDER AMBULANCE OF EYE SERVICE 7820 DISTURBANCE 03-29-2015 [facility] SKIN [facility] SENSATION MEDICAL GROUP 43189 REGULAR 03-28-2015 [place] [facility] ASTIGMATISM SERV FOUNDATION 57182 INTERMITTEN 03-28-2015 [place] [facility] T SERV EXOTROPIA, FOUNDATION ALTERNATING 83409 OTHER 03-01-2015 [place] SPECIFIED MEDICAL DISORDERS IMAGING ASS OF BREAST 28323 UNSPECIFIED 03-01-2015 [facility] ABNORMAL [facility]OS[facility] MAMMOGRAM INC 59441 ATROPHIC 02-26-2015 [facility], GASTRITIS LLC WITHOUT MENTION OF HEMORRHAGE 22629 UNS 02-26-2015 [facility] GASTRITIS&G [facility] HOS[facility] ASTRODUODIT INC IS W/O MENTION HEMORR 88871 NAUSEA 02-26-2015 [facility] ALONE [facility]OS[facility] INC 63210 ABDOMINAL 02-26-2015 [facility] PAIN, MEM HOSP GENERALIZED INC V5869 LONG-TERM 02-26-2015 [facility] (CURRENT) MEM [facility]OS[facility] USE OF INC OTHER MEDICATIONS 7804 DIZZINESS 11-29-2014 [facility] GIDDINESS MEDICAL GROUP 7840 HEADACHE 11-29-2014 [facility] MEDICAL GROUP 65050 OTHER 10-27-2014 [facility] DISEASES OF PHYSICIANS LARYNX GROUP 47003 DYSPHONIA 10-27-2014 [facility] PHYSICIANS GROUP 57231 DYSPHAGIA 10-27-2014 [facility] UNSPECIFIED PHYSICIANS GROUP V642 SURG/OTH 10-23-2014 [facility] PROC NOT [facility] OUT HOSPITAL P BECAUSE PTS DECN 30480 EARLY 10-17-2014 [facility] SATIETY PHYSICIANS GROUP 67783 DYSPHAGIA 10-17-2014 [facility] OROPHARYNGE PHYSICIANS AL PHASE GROUP 21675 ABDOMINAL 10-17-2014 [facility] PAIN, PHYSICIANS EPIGASTRIC GROUP 66871 INSOMNIA 09-27-2014 [facility] UNSPECIFIED NEUROLOGY CENTER [place] V700 ROUTINE 09-21-2014 [facility] H[facility]P MEDICAL INC EXAM@HEALTH CARE FACL V7612 OTHER 09-21-2014 [place] SCREENING MEDICAL MAMMOGRAM IMAGING ASS 55598 ABDOMINAL 09-18-2014 [place] PAIN, MEDICAL UNSPECIFIED IMAGING ASS SITE 3829 UNSPECIFIED 09-16-2014 [facility] SANTANA OTITIS MEDIA 4619 ACUTE 09-16-2014 FAY[facility] SANTANA SINUSITIS, UNSPECIFIED V0481 NEED 09-16-2014 F[facility] SANTANA PROPHYLACTI C VACCINATION &INOCULATIO N FLU 3502 ATYPICAL 09-06-2014 [facility] FACE PAIN NEUROLOGY CENTER [place] 22657 MIGRAINE 08-24-2014 [facility] W/O AURA NEUROLOGY INTRACT W/O CENTER [place] STATUS MIGRAINOSUS 2181 INTRAMURAL 08-23-2014 MOWEAQUA LEIOMYOMA 911 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, 2189 LEIOMYOMA 08-15-2014 [place] OF UTERUS, MEDICAL UNSPECIFIED IMAGING ASS 6202 OTHER AND 08-15-2014 [facility] UNSPECIFIED MEM HOSP OVARIAN INC CYST 6259 UNSPEC 08-15-2014 [place] IMAGING ASS W/FEMALE GENITAL ORGANS 7812 ABNORMALITY 08-09-2014 [facility] NEUROLOGY CENTER [place] V7231 ROUTINE 08-07-2014 [facility] JERRYI GYNECOLOGIC AL EXAMINATION V762 SCREENING 08-07-2014 LABORATORY FOR DEVENDRA OF MALIGNANT MANISH H NEOPLASM OF THE CERVIX 86008 ESOPHAGEAL 07-31-2014 [facility] MEDICAL GROUP 7291 UNSPECIFIED 06-04-2014 EMPI INC MYALGIA AND MYOSITIS 5950 ACUTE 05-03-2014 CALL[facility] JERRYI CYSTITIS 37149 OTHER 05-03-2014 AP[place] [address] OSTEOARTHRO 04-21-2014 FAYE Grossman INVLV MX SITES BUT NOT SPEC GEN 55897 BENIGN 04-17-2014 [facility] PAROXYSMAL [facility] POSITIONAL HOSP VERTIGO V571 OTHER 04-17-2014 [facility] PHYSICAL [facility] THERAPY [facility]OSP 7210 CERVICAL 03-21-2014 VAS[facility]LLO SPONDYLOSIS GIANNI WITHOUT MYELOPATHY 7230 SPINAL 03-20-2014 [facility] STENOSIS IN [place] CERVICAL REGION 72099 SPINAL STEN 03-20-2014 [facility] LUMB REG [place] W/O NEUROGENIC CLAUDICATIO N 82867 SPINA 03-20-2014 [place] BIFIDA WITH [place]OL[place] HYDROCEPHAL US CERVICAL REGION 06705 POSTLAMINEC 01-31-2014 MAR[facility] HAM JUSTINO SYNDROME CERVICAL REGION 7244 THORACIC/ABRAHAM 01-31-2014 [facility] H[facility] MBOSACRAL NEURITIS/RA DICULITIS UNSPEC 0549 HERPES 01-26-2014 [facility] JERRYI SIMPLEX WITHOUT MENTION OF COMPLICATIO N 5533 DIAPHRAGMAT 01-19-2014 [facility] JERRYI ALTAGRACIA W/O MENTION OBSTRUCTION /GANGREN 7821 RASH AND 01-19-2014 [facility] WHI OTHER NONSPECIFIC SKIN ERUPTION 7850 UNSPECIFIED 01-18-2014 [facility] ANT TACHYCARDIA 35459 CHRONIC 01-13-2014 [facility] W/O AURA W/O INTRACTABLE W/O SM 7218 OTHER 01-10-2014 ALY[facility] ALLIED JANET DISORDERS OF SPINE 7220 DISPLCMT 01-10-2014 AL[facility] CERV JANET INTERVERT DISC WITHOUT MYELOPATHY 58971 KYPHOSIS 01-10-2014 [facility] ACQUIRED JANET POSTURAL V454 ARTHRODESIS 01-10-2014 [facility] STATUS JANET V1641 FAMILY 01-05-2014 AL[facility] HISTORY OF JANET MALIGNANT NEOPLASM OVARY 7224 DEGENERATIO 12-29-2013 GO TRA N OF CERVICAL INTERVERTEB RAL DISC 2724 OTHER AND 12-28-2013 APPLE ANT UNSPECIFIED HYPERLIPIDE HERIBERTO 24742 ABDOMINAL 12-08-2013 [facility] WHI PAIN, LEFT LOWER QUADRANT 4299 UNSPECIFIED 09-10-2013 [facility] DISEASE [facility] 92866 ALTERED 09-06-2013 [facility] MENTAL RADIOLOGY STATUS ASSOC Medications Na ND Rx Da Fi Fi [...] #3 93 MG 8 TA BL ET CO 65 07 08 30 7 00 RI [...] 9 41 PH AR MG MA CY LARA PP #3 OS 93 IT 8 OR [...] #3 93 CA 8 PS UL E LE 65 05 06 7. 7 00 RI Ac VO 86 -2 -2 00 00 TE ti FL 20 5- 3- 0 01 ve OX 53 20 20 18 AI AC 75 17 17 54 D IN 0 48 PH AR 50 MA 0 CY MG #3 TA 93 BL 8 ET TI 55 05 06 90 30 00 RI Ac ZA 11 -3 -2 .0 00 TE ti NI 10 1- 3- 00 01 ve DI 18 20 20 15 AI NE 01 17 17 27 D 5 66 PH HC AR L MA 4 CY MG #3 TA 93 BL 8 ET SY 00 05 06 30 30 00 RI Ac NT 07 -2 -2 .0 00 TE ti HR 44 4- 3- 00 01 ve OI 55 20 20 18 AI D 29 17 17 61 D 50 0 48 PH AR MC MA G CY TA BL #3 ET 93 8 LO 00 05 06 30 10 00 RI Ac RA 59 -3 -2 .0 00 TE ti ZE 10 0- 3- 00 01 ve PA 24 20 20 18 AI M 20 17 17 59 D 2 1 65 PH MG AR MA TA CY BL ET #3 93 8 CY 10 05 06 90 30 00 RI Ac CL 70 -1 -1 .0 00 TE ti OB 20 8- 6- 00 01 ve EN 00 20 20 18 AI ZA 75 17 17 44 D CO 0 99 PH IN AR E MA [...] CY TA BL #3 ET 93 8 CO 65 05 06 30 15 00 RI Ac OM 16 -1 -0 .0 00 TE ti ET 20 5- 9- 00 01 ve GERARDO 52 20 20 17 AI ZI 11 17 17 73 D NE 0 66 PH AR 25 MA CY MG #3 TA 93 BL 8 ET CERTIFIED SURGICAL FIRST ASSISTANT 42 05 06 30 30 00 RI Ac 19 -1 -0 .0 00 TE ti TH 20 2- 9- 00 01 ve YR 32 20 20 18 AI OI 90 17 17 35 D D 1 29 PH 30 AR MA MG CY TA #3 BL 93 ET 8 ZO 13 05 06 30 30 00 RI Ac LP 66 -1 -0 .0 00 TE ti ID 80 5- 9- 00 01 ve EM 00 20 20 17 AI 80 17 17 91 D TA 1 29 PH RT AR RA MA TE CY 10 #3 93 MG 8 TA BL ET AZ 50 05 06 6. 5 00 RI Ac IT 11 -1 -0 00 00 TE ti HR 10 7- 9- 0 01 ve OM 78 20 20 18 AI YC 76 17 17 43 D IN 6 09 PH AR 25 MA 0 CY MG #3 TA 93 BL 8 ET AM 00 05 06 30 30 00 [...] CY TA #3 BL 93 ET 8 LE 00 04 05 30 30 00 [...] G #3 TA 93 BL 8 ET FL 68 03 04 2. 4 00 RI Ac UC 46 -2 -2 00 00 TE ti ON 20 3- 1- 0 01 ve AZ 10 20 20 17 AI OL 34 17 17 67 D E 0 55 PH 15 AR 0 MA MG CY TA #3 BL 93 ET 8 CO 65 03 04 30 15 00 RI [...] CA #3 PS 93 UL 8 E CL 00 03 04 12 30 00 RI Ac ON -1 0. 00 TE ti ID 82 7- [...] G #3 TA 93 BL 8 ET LO [...] 93 MG 8 TA B CL 00 02 03 12 30 00 RI Ac ON -1 0. 00 TE ti ID 82 7- [...] #3 93 MG 8 TA BL ET PH 00 02 03 10 4 00 RI Ac EN 59 -0 -0 .0 00 TE ti AD 12 3- 3- 00 01 ve OZ 99 20 20 16 AI 23 17 17 97 D 25 9 64 PH AR MG MA CY LARA PP #3 OS 93 IT 8 OR [...] #3 33 93 50 8 PO WD BY 00 01 02 60 30 00 [...] TA 93 BL 8 ET AM 00 01 02 30 30 00 RI Ac LO 37 -2 -1 .0 00 TE ti DI 85 4- 7- 00 01 ve PI 20 20 20 16 AI NE 90 17 17 40 D 5 24 PH BE AR SY MA LA CY TE 5 #3 93 MG 8 TA B AZ 50 01 02 6. 5 00 [...] CA #3 PS 93 UL 8 E CO 00 01 02 15 10 00 RI Ac OM 60 -1 -1 0. 00 TE ti ET 31 2- 0- 00 01 ve GERARDO 58 20 20 0 16 AI ZI 65 17 17 65 D NE 4 80 PH -D AR M MA SY CY RU P #3 93 8 CO 00 01 02 60 30 00 RI [...] TA CY BL ET #3 93 8 DO 47 01 02 14 7 00 RI Ac XY 78 -1 -1 .0 00 TE ti CY 10 8- 0- 00 01 ve CL 49 20 20 16 AI IN 00 17 17 73 D E 5 80 PH HY AR CL MA AT CY E 10 #3 0 93 MG 8 CA P LE 00 01 02 30 30 00 [...] CY TA BL #3 ET 93 8 Immunization Name Date Rout CVX Reac Dose Comm Prov Is Faci e tion ent ider Refu lity Give sed n IIV3 11-0 140 CONOR No BAPT 3-20 H IST VACC 15 JOCELIN HEAL TH PRES MEDI ERVA [place] TIVE GROU P FREE 0.5 ML DOSA GE IM USE Procedures Procedure DOS Code Location Performer Comment LSO L0650 [facility] 7 ORTHOTICS ORTHOTICS CORONAL , [facility] CONTRL RIGD ANT POST PANELS ANES 32992 [facility] 7 ANESTH MUSC & OF THE NRV HEAD BLUE NECK&POST ERIOR TRUNK INFUSION C1772 MEHRAN LAURENT PUMP 7 [facility] PROGRAMMA INC INC BLE IMPLTJ 89659 MEHRAN LAURENT REVJ/RPSG 7 [facility] INC INC ITHCL/EDR L CATH PLATE DRILLER W/O PEREZ UNCLASSIF J3490 MEHRAN LAURENT IED DRUGS 7 [facility] INC INC IMPLTJ/RP 56127 [facility] SPOONAMOR LCMT 7 SURGICAL E ITHCL/EDR L DRUG NFS PRGRBL PUMP BASIC 33049 MEHRAN LAURENT METABOLIC 7 [facility] PANEL INC INC CALCIUM TOTAL BLOOD 51553 MEHRAN LAURENT COUNT 7 [facility] COMPLETE INC INC AUTO&AUTO DIFRNTL WBC OPHTH 99845 [facility] 7 XM&EVAL COMPRHNSV ESTAB PT 1/> DETERMINA 03772 LUDMILA PURCELL 7 REFRACTIV E STATE ARTHROCEN 27586 [facility] RODRIGUEZ TESIS 7 ORTHOPEDI ASPIR&/IN C J MAJOR ASSOCIAT JT/BURSA W/O US COMPUTERI 22282 ALEX JOHNSON ZED 7 OPHTHALMI C IMAGING RETINA DUP-SCAN 70225 [facility] [place] SCALF XTR VEINS 7 RADIOLOGY [place] L/LIMITED STUDY URNLS DIP 40996 MOSQUE CLEVE 7 HEALTH STICK/TAB MEDICAL LET RGNT GROUP NON-AUTO W/O MICRSCP RADEX HIP 45616 [facility] 7 RADIOLOGY [place] ASSOC L WITH PELVIS 2-3 [place] [address] CAROLE ZARCO TRANSVAGI 7 [place] [address] [facility] SANTIAGO ABDOMEN & 7 MEDICAL PELVIS IMAGING W/CONTRAS ASS T MATERIAL FINAL G9638 [facility] SANTI[facility] REPORTS 7 MEDICAL W/O DOC IMAGING 1/MORE ASS DOSE REDUCTION TECH FINAL G9551 [facility] SANTIAGO REPR ABD 7 MEDICAL IMAG STS IMAGING W/O ASS INCIDNT [place]: [place] [address] MEHRAN LAURENT UREA 7 [facility] NITROGEN INC INC QUANTITAT [place] CREATININ 29161 MEHRAN LAURENT E BLOOD 7 [facility] INC INC COLLECTIO 11072 MEHRAN LAURENT N VENOUS 7 [facility] BLOOD INC INC VENIPUNCT URE ANES 90711 [facility] UPPER GI 7 ANESTH ENDOSCOPY OF THE PROXIMAL BLUE TO DUODENUM SLEEP STD 04414 MEHRAN LAURENT AIRFLOW 7 [facility] HRT INC INC RATE&O2 SAT EFFORT UNATT URINE 21516 MEHRAN LAURENT 7 [facility] TEST INC [place] [address] MEHRAN LAURENT HEAD/BRAI 7 [facility] N [place] [address] MEHRAN LAURENT INFUSION 7 [facility] THERAPY/P INC INC ROPHYLAXI S /DX 1ST TO 1 HR URNLS DIP 39025 MEHRAN LAURENT 7 [facility] STICK/TAB INC INC LET REAGENT AUTO MICROSCOP Y THERAPEUT 29948 MEHRAN LAURENT IC 7 [facility] INJECTION INC INC IV PUSH EACH NEW DRUG FINAL G9638 [place] SANTIAG[facility] REPORTS 7 MEDICAL W/O DOC IMAGING 1/MORE ASS DOSE REDUCTION TECH NJX 16378 PAVAN MUELLER DX/THER 7 MD ERVIN, SBST PSC INTRLMNR LMBR/SAC W/IMG GDN ROM 90805 MEHRAN LAURENT CHELSEY&REPR 7 [facility] T EA XTR INC INC EX HAND/EA TRNK SCTJ SPI GLUC BLD 93552 MEHRAN LAURENT GLUC MNTR 7 [facility] DEV INC INC CLEARED FDA SPEC HOME USE ANTINUCLE 33066 LAB DEV[facility]DRA LAB DEVENDRA AR 7 [facility] ANTIBOD[place] [address] LAB DEVENDRA LAB DEVENDRA BLOOD/URI 7 [facility] ACID HOLDINGS HOLDINGS COMPREHEN 16720 LAB DEVENDRA LAB DEVENDRA SIVE 7 [facility] METABOLIC HOLDINGS HOLDINGS PANEL C-REACTIV 18744 LAB DEVENDRA LAB DEVENDRA E PROTEIN 7 [facility] HOLDINGS HOLDINGS BLOOD 44790 LAB DEVENDRA LAB DEVENDRA COUNT 7 [facility] COMPLETE HOLDINGS HOLDINGS AUTO&AUTO DIFRNTL WBC RHEUMATOI 30058 LAB DEVENDRA LAB DEVENDRA D FACTOR 7 [facility] QUANTITAT HOLDINGS HOLDINGS [place] CHEMODERV 56154 [facility] SHOJAEI-M ATE 7 PHYSICIAN OGHADDAM FACIAL/TR S GROUP IGEM/CERV MUSC MIGRAINE BOTULINUM J0585 [facility] MYRIAM-Mt TOXIN 7 PHYSICIAN OGHADDAM TYPE A S GROUP PER UNIT COLLECTIO 42385 MEHRAN LAURENT N VENOUS 6 [facility] BLOOD INC INC VENIPUNCT URE IMMUNOASS 56994 MEHRAN LAURENT AY TUMOR 6 [facility] ANTIGEN INC INC QUANTITAT [place] INJECTION 52970 PAVAN MUELLER MD, SINGLE/ML PSC T TRIGGER POINT 1/2 [place] [address] MEHRAN MEHRAN TRANSVAGI 6 [facility] NAL INC INC LIPID 72348 LAB DEVENDRA LAB DEVENDRA PANEL 6 [facility] HOLDINGS HOLDINGS CYTP C/V 14024 [facility], PICKLESIM AUTO THIN 6 LLC ER JR YEE LYR PREPJ SCR MNL RESCR PHYS COMPREHEN 33852 LAB DEVENDRA LAB DEVENDRA SIVE 6 [facility] METABOLIC [place] [address] LAB DEVENDRA LAB DEVENDRA THYROID 6 [facility] STIMULATI HOLDINGS [place] [address] LAB DEVENDRA LAB DEVENDRA THYROXINE 6 [facility] TOTAL HOLDINGS HOLDINGS IADNA 70812 [facility], PICKLESIM HUMAN 6 LLC ER JR YEE [place] VIRUS HIGH-RISK TYPES COLLECTIO 50819 MEHRAN LAURENT N VENOUS 6 [facility] [place] [address] MEHRAN LAURENT FREE 6 [facility] [place] [address] MEHRAN LAURENT THYROID 6 [facility] STIMULATI [place] [address] MEHRAN LAURENT TRIIODOTH 6 [facility] YRONINE INC INC T3 FREE BLOOD 29193 MEHRAN LAURENT COUNT 6 [facility] COMPLETE INC INC AUTO&AUTO DIFRNTL WBC SIMPLE 36426 MEHRAN LAURENT REPAIR 6 [facility] SCALP/NEC INC INC K/AX/BLUE T/TRUNK 2.5CM/< IM ADM 16294 MEHRAN LAURENT PRQ ID 6 [facility] SUBQ/IM INC INC NJXS 1 VACCINE LAMNOTMY 36590 [facility] GO INCL 6 W/DCMPRSN ORTHOPAED NRV ROOT ICS PSC 1 INTRSPC LUMBR ANESTHESI 35725 [facility] A LUMBAR 6 ANESTHESI JAVI REGION A GROUP NOS PS BOTULINUM J0585 [facility] MYRIAM-Mt TOXIN 6 PHYSICIAN OGHADDAM TYPE A S GROUP PER UNIT CHEMODERV 42438 [facility] MYRIAM-M ATE 6 PHYSICIAN OGHADDAM FACIAL/TR S GROUP IGEM/CERV MUSC MIGRAINE COMPREHEN 48387 LAB DEVENDRA LAB DEVENDRA SIVE 6 [facility] METABOLIC HOLDINGS HOLDINGS PANEL BLOOD 22304 LAB DEVENDRA LAB DEVENDRA COUNT 6 [facility] COMPLETE HOLDINGS HOLDINGS AUTO&AUTO DIFRNTL WBC ECG 87066 MEHRAN TORRES JR ROUTINE 6 [facility] W/LEAST P 12 LDS I&R ONLY BLOOD 30183 MEHRAN HEON COUNT 6 [facility]OSP COMPLETE INC INC AUTO&AUTO DIFRNTL WBC COLLECTIO 11555 MEHRAN LAURENT N VENOUS 6 [facility] BLOOD INC INC VENIPUNCT URE RADIOLOGI 98364 [facility] C EXAM 6 MEDICAL CHEST 2 IMAGING VIEWS ASS FRONTAL&L ATERAL DRUG TST G0477 MEHRAN MEHRAN PRESUMP;C 6 [facility] HOSP PBL BEING INC INC READ DC OPT OBV ONLY ECG 44554 MEHRAN LAURENT ROUTINE 6 [facility] ECG INC INC W/LEAST 12 LDS TRCG ONLY W/O I&R BASIC 77590 MEHRAN MEHRAN METABOLIC 6 [facility]OSP PANEL INC INC CALCIUM TOTAL INJECTION 29783 PAVAN MUELLER ANJ 6 MD ERVIN, SINGLE/ML PSC T TRIGGER POINT 1/2 MUSCL[place] MRI 55744 [facility] GO TRA SPINAL 6 CANAL ORTHOPAED LUMBAR ICS PSC [place] [address] PAVAN PINO CHARMAINE JOINT 6 MD ERVIN, ARTHRGRPH PSC Y&/ANES/S TEROID W/BR[place]ON INJ PROC G0260 MEHRAN LAURENT SI 6 [facility] HOSP JNT;ANES INC INC STEROID&/ TX AGT&ARTHR OGRPH RADEX HIP 59312 [facility] GO 6 [place] ORTHOPAED L WITH ICS PSC PELVIS 1 VIEW DRUG TST G0477 MEHRAN LAURENT PRESUMP;C 6 [facility] HOSP PBL BEING INC INC READ DC OPT OBV ONLY THERAPEUT 02517 MEHRAN DE LA O IC 6 [facility] TIC/DX INJECTION SUBQ/IM INJECTION J1885 MEHRAN DE LA O 6 [facility] TROMETHAM INE PER 15 MG INJECTION J1040 MEHRAN DE LA O 6 [facility] DNISOLONE ACETATE 80 MG SENSORMOT 511[address] [place] OR XM 6 MEDICAL MEDICAL W/FLY MAKER SERV SERV CHELSEY FOUNDATIO FOUNDATIO OCULAR N N DEVIJ W/I&R SPX COMPUTERI 09135 CAROLE ESCAMILLA ZED 6 MEDICAL PAD OPHTHALMI SERV C IMAGING FOUNDATIO RETINA N CHEMODERV 47638 MOSQUE TOÑITO ATE 6 [facility] FACIAL/TR MEDICAL IGEM/CERV GROUP MUSC MIGRAINE BOTULINUM J0585 MOSQUE TOÑITO TOXIN 6 [facility] TYPE A MEDICAL PER UNIT GROUP DXA BONE 61113 [place] [facility] DENSITY 6 MEDICAL JANET STUDY 1/> IMAGING SITES ASS AXIAL SKEL SCREENING G0202 [place] [facility] 6 MEDICAL JANET MAMMOGRAP IMAGING JOSELIN ASS INCL CAD WHEN PERFORMD COMPUTER- 72019 [place] [facility] AIDED MEDICAL JANET DETECTION IMAGING ASS SCREENING MAMMOGRAP [facility] G[address] [facility] ASSESS & MGMT PT INJECTION J1885 MEHRAN DE LA O [address] [place] [address] TROMETHAM INE PER 15 MG THERAPEUT 27069 MEHRAN DE LA O IC 6 [facility] TIC/DX INJECTION SUBQ/IM INJECTION J1040 MEHRAN DE LA O [address] [place] [address] DNISOLONE ACETATE 80 MG INJECTION J1885 [facility] TROMETHAM INE PER 15 MG THERAPEUT 86038 MOSQUE MORRIN IC [address] [place] [address] PROPHYLAC MEDICAL TIC/DX GROUP INJECTION SUBQ/[place] [address] LAB DEVENDRA LAB DEVENDRA THYROXINE 6 [facility] [place] [address] LAB DEVENDRA LAB DEVENDRA TRIIODOTH 6 [facility] YRONINE HOLDINGS HOLDINGS T3 TOTAL TT3 COMPREHEN 51677 LAB DEVENDRA LAB DEVENDRA SIVE 6 [facility] METABOLIC [place] [address] LAB DEVENDRA LAB DEVENDRA IRON 6 [facility] [place] [address] LAB DEVENDRA LAB DEVENDRA FOLIC 6 [facility] [place] [address] LAB DEVENDRA LAB DEVENDRA THYROID 6 [facility] STIMULATI HOLDINGS HOLDINGS NG HORMONE TSH CYANOCOBA 36773 LAB DEVENDRA LAB DEVENDRA DAVID 6 [facility] VITAMIN HOLDINGS HOLDINGS B-12 25 57232 LAB DEVENDRA LAB DEVENDRA HYDROXY 6 [facility] INCLUDES HOLDINGS HOLDINGS FRACTIONS IF PERFORMED MICROSOMA 16522 LAB DEVENDRA LAB DEVENDRA L 6 [facility] ANTIBODIE HOLDINGS HOLDINGS S EACH BLOOD 00451 LAB DEVENDRA LAB DEVENDRA COUNT 6 [facility] COMPLETE HOLDINGS HOLDINGS AUTO&AUTO DIFRNTL WBC IRON 17059 LAB DEVENDRA LAB DEVENDRA BINDING 6 [facility] CAPACITY HOLDINGS HOLDINGS LOCM Q9967 MEHRAN HEON 300-399 6 [facility] MG/ML INC INC IODINE CONCENTRA [place]ION [place] NJX 77402 PAVAN DURON CRI DX/THER 6 MD ERVIN, SBST PSC EPIDURAL/ SUBARACH LUMBAR/SA CRAL INJECTION J1030 MEHRAN LAURENT 6 [facility] METHYLPRE INC INC DNISOLONE ACETATE 40 MG HOSP[facility] G0463 MEHRAN LAURENT OUTPATIEN 6 [facility] T CLIN INC INC VISIT ASSESS & MGMT PT THERAPEUT 82023 MOSQUEDanay RODRIGUES IC 6 [facility] PROPHYLAC MEDICAL TIC/DX GROUP INJECTION SUBQ/IM INJECTION J3301 MOSQUEDanay RODRIGUES 6 [facility] TRIAMCINO MEDICAL LONE GROUP [place] [address] [place] [address] [place] [facility] CERVICAL 6 MEDICAL JANET SPINE W/[place] [address] [place] [facility] HEAD/BRAI 6 MEDICAL JANET N W/O IMAGING CONTRAST ASS MATERIAL RADEX HIP 57529 [place] BEINEKE 6 MEDICAL [place]ILATERA IMAGING L WITH ASS PELVIS 2-3 VIEWS CHEMODERV 64299 MOSQUE TOÑITO ALBARADO 6 [facility] FACIAL/TR MEDICAL IGEM/CERV GROUP [facility] MIGRAINE BOTULINUM J0585 MOSQUE TOÑITO TOXIN 6 [facility] TYPE A MEDICAL PER UNIT GROUP OPHTH 78546 [facility] 6 GRE GRE XM&EVAL COMPRE NEW PT 1/> VST COMPREHEN 60126 LAB DEVENDRA LAB DEVENDRA SIVE 6 [facility] METABOLIC [place] [address] LAB DEVENDRA LAB DEVENDRA THYROID 6 [facility] STIMULATI HOLDINGS HOLDINGS NG HORMONE TSH BLOOD 75445 LAB DEVENDRA LAB DEVENDRA COUNT 6 [facility] COMPLETE HOLDINGS HOLDINGS AUTO&AUTO DIFRNTL WBC LIPID 96950 LAB DEVENDRA LAB DEVENDRA PANEL 6 [facility]INGS HOLDINGS PRESSURIZ 06439 MEHRAN LAURENT ED/NONPRE 6 [facility] SSURIZED INC INC INHALATIO N TREATMENT INJECTION J1040 MEHRAN SHARMA 5 [facility] DNISOLONE ACETATE 80 MG INJECTION J0696 MEHRAN SHARMA 5 [facility] NE SODIUM PER 250 MG THERAPEUT 95263 MEHRAN SHARMA IC 5 [facility] TIC/DX INJECTION SUBQ/IM CHEMODERV 76444 MOSQUE TOÑITO ATE 5 [facility] FACIAL/TR MEDICAL IGEM/CERV GROUP [facility] MIGRAINE BOTULINUM J0585 MOSQUE TOÑITO TOXIN 5 [facility] TYPE A MEDICAL PER UNIT GROUP OBSERVATI 12531 [facility] ON CARE 5 PHYSICIAN FEDE DISCHARGE S GROUP [facility] G0378 MEHRAN LAURENT OBSERVATI 5 [facility] ON INC INC SERVICE PER HOUR COMPREHEN 08904 MEHRAN LAURENT SIVE 5 [facility] METABOLIC INC INC PANEL CREATINE 86251 MEHRAN LAURENT KINASE MB 5 [facility] FRACTION INC INC ONLY COLLECTIO 89487 MEHRAN Montemayor VENOUS 5 [facility] BLOOD INC INC VENIPUNCT URE ECHO 96112 [facility] 5 MEDICAL GABRIEL 2D SERV W/WOM-MOD FOUNDATIO E COMPL N SPEC&COLR D CREATINE 11-17-201 03407 MEHRAN LAURENT KINASE 5 [facility] TOTAL INC INC NONINVASI 32727 MEHRAN LAURENT VE 5 [facility] EAR/PULSE INC [place] [address] MEHRAN LAURENT TROPONIN 5 [facility] QUANTITAT INC INC [place] BLOOD 34229 MEHRAN LAURENT COUNT 5 [facility] COMPLETE INC INC AUTO&AUTO DIFRNTL WBC INITIAL 96006 [facility] 5 CULAR MAT CARE/DAY CONSULTAN 50 TS O MINUTES ECG 41284 MEHRAN TORRES JR ROUTINE 5 [facility] W/LEAST P 12 LDS I&R ONLY URNLS DIP 20988 MEHRAN LAURENT 5 [facility] STICK/TAB INC INC LET [place]AG[place] [address] MEHRAN LAURENT TROPONIN 5 [facility] QUANTITAT INC INC [place] THERAPEUT 45647 MEHRAN LAURENT IC 5 [facility] INJECTION INC INC IV PUSH EACH NEW DRUG NONINVASI 56879 MEHRAN LAURENT VE 5 [facility] EAR/PULSE INC INC OXIMETRY SINGLE DETER HEMOGLOBI 00765 MEHRAN LAURENT N 5 [facility] GLYCOSYLA INC INC KARLA A1C BLOOD 14570 MEHRAN LAURENT COUNT 5 [facility]OS[facility] COMPLETE INC INC AUTO&AUTO DIFRNTL WBC INITIAL 23832 [facility] JAROD OBSERVATI 5 PHYSICIAN FEDE ON S GROUP CARE/DAY 50 MINUTES FIBRIN 95334 MEHRAN LAURENT DGRADJ 5 [facility] PRODUCTS INC INC D-DIMER QUAL/SEMI TACO THER 35774 MEHRAN LAURENT PROPH/DX 5 [facility] NJX IV INC INC PUSH SINGLE/1S T SBST/DRUG ECG 97224 MEHRAN LAURENT ROUTINE 5 [facility] ECG INC INC W/LEAST 12 LDS TRCG ONLY W/O I&R CREATINE 02131 MEHRAN LAURENT KINASE 5 [facility] TOTAL INC INC COMPREHEN 43016 MEHRAN LAURENT SIVE 5 [facility] METABOLIC INC INC PANEL CREATINE 56667 MEHRAN LAURENT KINASE MB 5 [facility] FRACTION INC INC ONLY LOCM Q9967 MEHRAN HEON 300-399 5 [facility] MG/ML INC INC IODINE CONCENTRA TION PER ML COLLECTIO 97614 MEHRAN LAURENT N VENOUS 5 [facility] [place] [address] MEHRAN LAURENT ANGIOGRAP 5 [facility] HY CHEST INC INC W/CONTRAS T/NONCONT [facility] G0378 MEHRAN MEHRAN OBSERVATI 5 [facility] ON INC INC SERVICE PER HOUR URINE 98635 MEHRAN LAURENT 5 [facility] TEST INC INC VISUAL COLOR CMPRSN [place] RADIOLOGI 36284 MEHRAN LAURENT C 5 [facility] EXAMINATI INC INC ON CHEST SINGLE VIEW FRONTAL IM ADM 19937 JUDD PARKS JOCELIN PRQ ID 5 HEALTH SUBQ/IM MEDICAL NJXS 1 GROUP VACCINE IIV3 VACC 73611 JUDD PARKS JOCELIN 5 HEALTH PRESERVAT MEDICAL [place] FREE GROUP 0.5 ML DOSAGE IM USE THERAPEUT [address] IC 5 [facility] TIC/DX INJECTION SUBQ/IM INJECTION J[address] 5 [facility] DNISOLONE ACETATE 40 MG RADEX 49921 MEHRAN LAURENT SPINE 5 [facility] LUMBOSACR INC INC AL MINIMUM 4 VIEWS CHEMODERV 27223 MOSQUE TOÑITO ATE 5 [facility] FACIAL/TR MEDICAL IGEM/CERV GROUP [facility] MIGRAINE BOTULINUM J0585 MOSQUE TOÑITO TOXIN 5 [facility] TYPE A MEDICAL PER UNIT GROUP INJECTION J1885 MOSQUE MORRIN 5 [facility] KETOROLAC [facility]ICAL GROUP TROMETHAM INE PER 15 MG INJECTION J3301 MOSQUE MORRIN 5 [facility] TRIAMCINO MEDICAL LONE GROUP ACETONIDE NOS 10 MG CULTURE 60325 LAB DEVENDRA LAB DEVENDRA BACTERIAL 5 [facility] HOLDINGS HOLDINGS QUANTTATI VE COLONY COUNT URINE CULTURE 59090 LAB DEVENDRA LAB DEVENDRA BACTERIAL 5 [facility] HOLDINGS HOLDINGS QUANTTATI VE COLONY COUNT URINE CULTURE 21878 LAB DEVENDRA LAB DEVENDRA BCT 5 [facility] ISOL&PRSM HOLDINGS HOLDINGS PTV ID ISOLATE EA URINE CUL BACT 91074 LAB DEVENDRA LAB DEVENDRA AEROBIC 5 [facility] ADDL HOLDINGS HOLDINGS METHS DEFINITIV E EA ISOL SUSCEPTIB 11806 LAB DEVENDRA LAB DEVENDRA LTY STDY 5 [facility] ANTIMICRB HOLDINGS HOLDINGS IAL MICRO/AGA R DILUTJ INJECTION J1885 JUDD PARKS JOCELIN 5 [facility]ALTH K[facility]OL[facility] MEDICAL GROUP TROMETHAM INE PER 15 MG 3D 24342 [place] [facility] RENDERING 5 MEDICAL JANET W/INTERP IMAGING & ASS POSTPROCE SS SUPERVISI ON MRI 47916 [place] [facility] SPINAL 5 MEDICAL JANET CANAL IMAGING LUMBAR ASS W/O CONTRAST MATERIAL OPHTH 18555 [facility] 5 MEDICAL CLA XM&EVAL SERV INTERMEDI FOUNDATIO ATE ESTAB N PT BASIC 95909 [facility] METABOLIC 5 Y Y PANEL [facility] CALCIUM TOTAL THROMBOPL 46474 [facility] ASTIN 5 Y Y TIME [facility] PARTIAL PLASMA/WH OLE BLOOD RADIOLOGI 37558 [facility] ALL[facility] [place] [address] [facility] TROPONIN 5 [facility]QUE MOSQUE QUANTITAT HOSP HOSP [place] BLOOD 21998 [facility] COUNT 5 Y Y COMPLETE [facility] AUTOMATED INJECTION J2550 [facility] 5 Y Y [facility] INE HCL UP TO 50 MG GROUND A0425 [facility] MILEAGE 5 AMBULANCE AMBULANCE PER SERV ANALYSIS MGR SERV ANALYSIS MGR STATUTE R R MILE ECG 43849 CAROLE FLORENTIN SUSAN ROUTINE 5 MEDICAL ECG SERV W/LEAST FOUNDATIO 12 LDS N I&R ONLY THER 40605 [facility] PROPH/DX 5 Y Y NJX [facility] PUSH SINGLE/1S T SBST/DRUG PROTHROMB 54631 UNIVERSIT UNIVERSIT IN TIME 5 Y Y HOSPITAL HOSPITAL ECG 10702 [facility] ROUTINE 5 [facility] ECG HOSP HOSP W/LEAST 12 LDS TRCG ONLY W/O I&[place] [address] [facility] LIPASE 5 [facility] HOSP FIBRIN 80692 [facility] DGRADJ 5 [facility] PRODUCTS HOSP HOSP D-DIMER QUANTITAT [place] PROTHROMB 65095 [facility] IN TIME 5 [facility]QUE HOSP HOSP ECG 30143 [facility] ROUTINE 5 [facility]QUE ECG HOSP HOSP W/LEAST 12 LDS TRCG ONLY W/O I&R CRITICAL 96769 [facility] PENCE COR CARE 5 EMERGENCY ILL/INJUR PHYS PSC ED PATIENT INIT 30-74 [place] 78474 [facility] THERAPY 5 [facility] PROPHYLAX [facility]P HOSP IS/DX CONCURREN T NFS RADIOLOGI 80530 [facility] BRIGHT C 5 RADIOLOGY III JAM EXAMINATI ASSOC ON CHEST SINGLE VIEW FRONTAL GROUND A0425 [facility] MILEAGE 5 AMBULANCE AMBULANCE PER SERVICE SERVICE STATUTE MILE COLLECTIO 78430 [facility] N VENOUS 5 [facility] BLOOD [facility]OSP HOSP VENIPUNCT URE COMPREHEN 17003 [facility] SIVE 5 [facility] [place] [address] [facility] AMYLASE 5 [facility] NONINVASI 72866 [facility] VE 5 [facility] EAR/PULSE HOSP HOSP OXIMETRY MULTIPLE DETER INJECTION J2550 [facility]EN[facility]AL 5 [facility] PROMETHAZ H[facility] HOSP INE HCL UP [place] 50 [place] [address] [facility] INFUSION 5 [facility] THERAPY/P HOSP HOSP ROPHYLAXI S /DX 1ST TO 1 HR THERAPEUT 57325 [facility] IC 5 [facility] INJECTION HOSP HOSP IV PUSH EACH NEW DRUG NATRIURET 06273 [facility] IC 5 [facility] [address] [facility] TROPONIN 5 [facility] QUANTITAT [facility] HOSP [place] BLOOD 82524 [facility] COUNT 5 [facility] COMPLETE [facility]OSP HOSP AUTO&AUTO DIFRNTL WBC INJECTION J2270 [facility] MORPHINE 5 [facility] SULFATE [facility] HOSP UP [place] 10 [place] [address] [facility] INFUSION 5 [facility] THERAPY [facility] HOSP PROPHYLAX IS/DX EA HOUR THER 11431 [facility] PROPH/DX 5 [facility] NJX EA HOSP HOSP SEQL IV PUSH SBST/DRUG FAC THROMBOPL 46949 [facility] ASTIN 5 [facility] TIME HOSP HOSP PARTIAL PLASMA/WH OLE BLOOD AMB A0427 [facility] SERVICE 5 AMBULANCE AMBULANCE ALS SERVICE SERVICE EMERGENCY TRANSPORT LEVEL 1 INJECTION J1885 JUDD PARKS JOCELIN 5 [facility] INE PER 15 MG THERAPEUT 58531 JUDD PARKS JOCELIN IC 5 [facility] PROPHYLAC MEDICAL TIC/DX GROUP INJECTION SUBQ/IM OPHTH 70273 [facility]IG[facility] 5 MEDICAL MEGNA XM&EVAL SERV COMPRHNSV FOUNDATIO ESTAB PT N 1/> DETERMINA 63887 CAROLE MICHAEL TION 5 MEDICAL MEGAN REFRACTIV SERV E STATE FOUNDATIO N CHEMODERV 83061 [facility] TOÑITO ATE 5 HEALTH MA[facility]ICE FACIAL/TR MEDICAL IGEM/CERV GROUP [facility] MIGRAINE DIAGNOSTI G0206 [place] ALYCE 5 MEDICAL JANET MAMMOGRAP IMAGING HY INCL ASS CAD WHEN [place]; [place] [address] [facility], PICKLESIM SURG 5 [facility] PATHOLOGY GROSS&[place] [address] MEHRAN MEHRAN INFUSION 5 [facility] THERAPY INC INC PROPHYLAX [place] [address] MEHRAN MEHRAN INFUSION 5 [facility] THERAPY/P INC INC ROPHYLAXI S /DX 1ST TO 1 HR EGD 89512 [place] ANT TRANSORAL 5 MEDICAL BIOPSY SERV SINGLE/MU FOUNDATIO LTIPLE N CUL 63034 MEHRAN LAURENT PRSMPTV 5 [facility] PTHGNC INC INC ORGANISMS SCR DNS CHART SPECIAL 32776 [facility], PICKLESIM STAIN 5 LLC ER JR YEE GROUP 1 MICROORGA NISMS I&R 25 47036 MEHR[facility] LAURENT HYDROXY 5 [facility] INCLUDES INC INC FRACTIONS IF PERFORMED BLOOD 22578 [facility] LAURENT COUNT 5 [facility] COMPLETE INC INC AUTO&AUTO DIFRNTL WBC COLLECTIO 29702 [facility] LAURENT N VENOUS 5 [facility] BLOOD INC INC VENIPUNCT URE COMPREHEN 86418 [facility] LAURENT SIVE 5 [facility] [address] [facility] LAUR[facility] THYROID 5 [facility] STIMULATI INC INC NG HORMONE TSH CHEMODERV 09505 [facility] TOÑITO ATE 5 HEALTH MA[facility]ICE FACIAL/TR MEDICAL IGEM/CERV GROUP [facility] MIGRAINE RADIOLOGI 93321 MEHRAN LAURENT C 4 [facility] EXAMINATI INC INC ON CHEST SINGLE VIEW FRONTAL ECG 94717 MEHRAN DENT ROUTINE 4 [facility] W/LEAST P 12 LDS [place] [address] MEHRAN LAURENT TROPONIN 4 [facility] QUANTITAT INC INC [place] URNLS DIP 75474 MEHRAN LAURENT 4 [facility] STICK/TAB INC INC LET REAGENT AUTO MICROSCOP Y BLOOD 36572 MEHRAN LAURENT COUNT 4 [facility] COMPLETE INC INC AUTO&AUTO DIFRNTL WBC CREATINE 53783 MEHRAN LAURENT KINASE 4 [facility] TOTAL INC INC ECG 57534 MEHRAN LAURENT ROUTINE 4 [facility] ECG INC INC W/LEAST 12 LDS TRCG ONLY W/O I&R COMPREHEN 35610 [facility]HRAN LAURENT SIVE 4 [facility] METABOLIC INC INC PANEL CREATINE 55532 MEHRAN LAURENT KINASE MB 4 [facility] FRACTION INC INC ONLY US BREAST 69432 MEHRAN LAURENT REAL 4 [facility] TIME INC INC W/IMAGE DOCUMENTA TION DIAGNOSTI G0206 MEHRAN LAURENT C 4 [facility] HOSP MAMMOGRAP INC INC HY INCL CAD WHEN PERF; UNI SWALLOWIN 31889 AMARILIS Montemayor. Magdiel FUNCJ 4 RADIOLOGY W/CINERAD ASSOC IOGRAPY/V IDRADIOG [facility] 84702 MEHRAN LAURENT AIDED 4 [facility] HOSP DETECTION INC INC SCREENING MAMMOGRAP HY SCREENING G0202 MEHRAN LAURENT 4 [facility] HOSP MAMMOGRAP INC INC HY JOSELIN INCL CAD WHEN PERFORMD GASTRIC 08809 MEHRAN LAURENT EMPTYING 4 [facility] IMAGING INC INC STUDY TECHNETIU A9541 MEHRAN Amor TC-99M 4 [facility] SULFUR INC INC COLLOID DX UP TO 20 MCI LARYNGOSC 56758 [facility] VJ OPY 4 PHYSICIAN FRA FLEXIBLE S GROUP DIAGNOSTI C INJECTION 21929 MOSQUE TOÑITO 4 NEUROLOGY MAURICE SINGLE/ML CENTER T TRIGGER [place] POINT 3/> MUSCLES INJECTION 84729 MOSQUE TOÑITO 4 NEUROLOGY [facility] ANESTHETI CENTER C AGENT [facility] NRV INJECTION J1030 MOSQUE TOÑITO 4 NEUROLOGY MAURICE METHYLPRE CENTER DNISOLONE [place] ACETATE 40 [place] [address] MEHRAN LAURENT HPYLORI 4 [facility] HOSP INC INC SPECIAL 44637 [facility] STAIN 4 [facility] MAX GROUP 1 MICROORGA NISMS I&[place] [address] [facility], [facility] SURG 4 [facility] MAX PATHOLOGY GROSS&FEDE ROSCOPIC EXAM EGD 32643 [facility] SUJATHA SHAH TRANSORAL 4 PHYSICIAN MILY BIOPSY S GROUP SINGLE/MU LTIPLE INJECTION J1100 MOSQUE TOÑITO 4 NEUROLOGY MAURICE DEXAMETHO CENTER SONE [place] SODIUM PHOSPHATE 1 MG ARTHROCEN 54807 MOSQUE TOÑITO TESIS 4 NEUROLOGY MAURICE ASPIR&/IN CENTER J MAJOR KORINA JT/BUR[place] W/[place] [address] MEHRAN LAURENT TRANSVAGI 4 [facility] NAL INC INC 25 61699 LABORATOR LABORATOR HYDROXY 4 Y Y INCLUDES CORPORATI CORPORATI FRACTIONS ON [place] [address] LABORATOR LABORATOR FERRITIN 4 Y Y CORPORATI [place] [address] LABORATOR LABORATOR IRON 4 Y Y CORPORATI CORPORATI ON OF AM ON OF AM LIPID 16499 LABORATOR LABORATOR PANEL 4 Y Y CORPORATI CORPORATI ON OF AM ON OF AM GENERAL 92848 LABORATOR LABORATOR HEALTH 4 Y Y PANEL CORPORATI CORPORATI ON OF AM ON OF AM CYTP 30948 LABORATOR LABORATOR CERV/VAG 4 Y DEVENDRA OF Y DEVENDRA OF AUTO THIN [facility] H PREP MNL SCREEN INJECTION J3301 MOSQUE CALLUM [address] [place] [address] [facility] LONE GROUP ACETONIDE NOS 10 MG THERAPEUT 20024 MOSQUE CALLUM IC 4 [facility] PROPHYLAC MEDICAL TIC/DX GROUP INJECTION SUBQ/IM TENS E0720 EMPI INC EMPI INC DEVICE 4 TWO LEAD LOCALIZED STIMULATI ON TENS E0730 EMPI INC EMPI INC DEVICE 4 4/MORE LEADS MULTI NERVE STIMULATI ON CULTURE 11236 LAB DEVENDRA LAB DEVENDRA BACTERIAL 4 MANISH MANISH HOLDINGS HOLDINGS QUANTT[place] [address] LAB DEV[facility]DR[facility] LAB DEVENDRA THYROID 4 MAN[facility] MANISH STIMULATI HOLDINGS [place] [address] LAB DEVENDRA LAB DEVENDRA FREE 4 MANISH MAN[place] [address] LAB DEVENDRA LAB DEVENDRA IRON 4 MANISH MANISH HOLDINGS HOLDINGS 25 95065 LAB DEVENDRA LAB DEVENDRA HYDROXY 4 MANISH MANISH INCLUDES HOLDINGS HOLDINGS FRACTIONS IF PERFORMED CYANOCOBA 27489 LAB DEVENDRA LAB DEVENDRA DAVID 4 MANISH MANISH VITAMIN HOLDINGS HOLDINGS B-12 HEMOGLOBI 58816 LAB DEVENDRA LAB DEVENDRA N 4 MANISH MANISH GLYCOSYLA HOLDINGS [place] [address] LAB DEVENDRA LAB DEVENDRA TRIIODOTH 4 MANISH MANISH YRONINE HOLDINGS HOLDINGS T3 FREE THERAPEUT 74122 CALLUM NOLEN IC 4 WHI WHI PROPHYLAC TIC/DX INJECTION SUBQ/IM INJECTION J3301 CALLUM VILLARREALIAM 4 WHI WHI TRIAMCINO LONE ACETONIDE NOS 10 MG INJ J0702 FAYE MCKINNEY BETAMETHA 4 MAX MAX SONE ACETATE & PHOSPHATE 3 MG PHYSICAL 60056 [facility] CENTRAL THERAPY 4 MOSQUE MOSQUE EVALUATIO HOSP HOSP N TENS E0730 EMPI INC EMPI INC DEVICE 4 4/MORE LEADS MULTI NERVE STIMULATI ON THERAPEUT 95923 CROSSFIEL CROSSFIEL IC PX 1/> 4 D KOLBY D KOLBY AREAS EACH 15 MIN EXERCISES MANUAL 99085 CROSSFIEL CROSSFIEL THERAPY 4 D KOLBY D KOLBY TQS 1/> REGIONS EACH 15 MINUTES THERAPEUT 51623 CROSSFIEL CROSSFIEL IC PX 1/> 4 D KOLBY D KOLBY AREAS EACH 15 MIN EXERCISES MANUAL 77486 CROSSFIEL CROSSFIEL THERAPY 4 D KOLBY D KOLBY TQS 1/> REGIONS EACH 15 MINUTES MANUAL 00609 CROSSFIEL CROSSFIEL THERAPY 4 D KOLBY D KOLBY TQS 1/> REGIONS EACH 15 MINUTES THERAPEUT 49811 CROSSFIEL CROSSFIEL IC PX 1/> 4 D KOLBY D KLOBY AREAS EACH 15 MIN EXERCISES MANUAL 18387 CROSSFIEL CROSSFIEL THERAPY 4 D KOLBY D KOLBY TQS 1/> REGIONS EACH 15 MINUTES MANUAL 49045 CROSSFIEL CROSSFIEL THERAPY 4 D KOLBY D KOLBY TQS 1/> REGIONS EACH 15 MINUTES MANUAL 86879 CROSSFIEL CROSSFIEL THERAPY 4 D KOLBY D KOLBY TQS 1/> REGIONS EACH 15 MINUTES MANUAL 07195 CROSSFIEL CROSSFIEL THERAPY 4 D KOLBY D KOLBY TQS 1/> REGIONS EACH 15 MINUTES PHYSICAL 81801 PROFESSIO CROSSFIEL THERAPY 4 NAL REHAB D KOLBY EVALUATIO ASSOC N PSC DRUG SCR G0434 MARII HAM MARII HAM NOT 4 CHROMATOG RAPHIC; ANY NUMBER PT ENC MRI 70710 MEHRAN LAURENT SPINAL 4 [facility] CANAL INC INC CERVICAL W/O CONTRAST MATRL 3D 44621 MEHRAN LAURENT RENDERING 4 [facility] W/INTERP INC INC & POSTPROCE SS SUPERVISI ON MRI 22230 MEHRAN LAURENT SPINAL 4 [facility] CANAL INC INC LUMBAR W/[place] [address] MEHRAN LAURENT HYDROXYIN 4 [facility] DOLACETIC INC [place] ACID 5-[place] [address] MEHRAN LAURENT VANILLYLM 4 [facility] ANDELIC INC INC ACID URINE METANEPHR 32300 MEHRAN LAURENT PHIL 4 [place] [address] MEHRAN LAURENT ALDOSTERO 4 [place] [address] MEHRAN LAURENT TRANSVAGI 4 MEM HOS[facility] MEM HOS[facility] NAL INC INC INJ J0702 FAYE MCKINNEY BETAMETHA 4 MAX MAX SONE ACETATE & PHOSPHATE 3 MG THERAPEUT 97435 CALLUM NOLEN IC 4 WHI WHI PROPHYLAC TIC/DX INJECTION SUBQ/IM INJECTION J3301 CALLUM CALLUM 4 WHI WHI TRIAMCINO LONE ACETONIDE NOS 10 MG COLLECTIO 78908 [facility] CENTR[facility] N VENOUS 3 MOSQUE MOSQUE BLOOD HOSP HOSP VENIPUNCT URE COMPREHEN 62149 [facility] SIVE 3 MOSQUE MOSQUE [place] [address] [facility] AMYLASE 3 [place] [address] [facility] LIPASE 3 MOSQUE MOSQUE HOSP HOSP PROTHROMB 02464 [facility] IN TIME 3 [facility] [place] [facility] REG BOARD ECG 33460 [facility] ROUTINE 3 MOSQUE MOSQUE ECG HOSP HOSP W/LEAST 12 LDS TRCG ONLY W/O I&R THROMBOPL 82347 [facility] ASTIN 3 [facility] [place] MR TIME HOSP REG BOARD PARTIAL PLASMA/WH OLE BLOOD RADIOLOGI 06331 [facility] C 3 MOSQUE MOSQUE EXAMINATI HOSP HOSP ON CHEST SINGLE VIEW FRONTAL NATRIURET 66520 [facility] IC 3 MOSQUE [place] [address] [facility] TROPONIN 3 MOSQUE MOSQUE QUANTITAT HOSP HOSP [place] BLOOD 21181 [facility] COUNT 3 MOSQUE MOSQUE COMPLETE HOSP HOSP AUTO&[place] [address] CEN[facility]AL [facility]TRAL ANGIOGRAP 3 RADIOLOGY RADIOLOGY HY CHEST ASSOC ASSOC W/CONTRAS T/NONCONT RAST GROUND A0425 [facility]-DELMY ELIZONDO PER CO EMS CO EMS STATUTE MILE [facility] A0427 [facility] SERVICE 3 MIKHAIL ELIZONDO ALS CO EMS CO EMS EMERGENCY TRANSPORT LEVEL 1 Encounters Encounter Start End Date Code Location Performer Type Date OFFICE 22561 MEHRAN OUTPATIEN 7 7 [facility] T VISIT INC 10 MINUTES OFFICE 95348 LUDMILA KEYS OUTPATIEN 7 7 T VISIT 15 MINUTES HOSPITAL MEHRAN - 7 7 [facility] OUTPATIEN INC [facility] MEHRAN - 7 7 [facility] OUTPATIEN INC [facility] MEHRAN - 7 7 MEM [facility] OUTPATIEN INC T OFFICE 85513 JERILYNChari MICHAEL OUTPATIEN 7 7 ORTHOPEDI T NEW 45 C MINUTES ASSOCIAT OFFICE 66264 ALEX JOHNSON OUTPATIEN 7 7 T VISIT 15 MINUTES OFFICE 46235 MOSQUE CLEVE OUTPATIEN 7 7 HEALTH T VISIT MEDICAL 25 GROUP MINUTES OFFICE 26755 [facility] CONSULTAT 7 7 N ION NEUROLOGY NEW/ESTAB PATIENT 60 MIN HOSPITAL [facility] - 7 7 N OUTPATIEN COMMUNTIY T HOSPITA OFFICE 54574 MOSQUE CLEVE OUTPATIEN 7 7 HEALTH T VISIT MEDICAL 25 GROUP MINUTES OFFICE 47625 MEHRAN OUTPATIEN 7 7 MEM [facility] T VISIT INC 10 MINUTES HOSPITAL MEHRAN - 7 7 [facility] OUTPATIEN INC T OFFICE 63053 MEHRAN OUTPATIEN 7 7 MEM [facility] T VISIT INC 10 MINUTES HOSPITAL MEHRAN - 7 7 [facility] OUTPATIEN INC T OFFICE 58628 [facility] SUJATHA OUTPATIEN 7 7 PHYSICIAN T VISIT S GROUP 15 MINUTES OFFICE 83931 CAROLE MOLINAE OUTPATIEN 7 7 MEDICAL HERRERA T VISIT SERV 25 FOUNDATIO MINUTES [facility] OUTPATIEN INC T [facility] MEHRAN - 7 7 MEM [facility] OUTPATIEN INC T OFFICE 54488 [facility] SUJATHA SHAH OUTPATIEN 7 7 PHYSICIAN T VISIT S GROUP 15 MINUTES HOSPITAL MEHRAN - 7 7 [facility] OUTPATIEN INC T OFFICE 34318 PAVAN MUELLER OUTMICHAEL 7 7 MD ERVIN, T VISIT PSC 10 MINUTES HOSPITAL MEHRAN - 7 7 [facility] OUTPATIEN INC [facility] MEHRAN - 7 7 MEM [facility] OUTPATIEN INC T EMERGENCY 19114 MARAL GARCIA DEPT 7 7 PHYSICIAN VISIT S, [facility] HIGH SEVERITY& THREAT FUNJ EMERGENCY 67528 MEHRAN 7 7 MEM HOS[facility] DEPARTMEN INC T VISIT HIGH/URGE NT SEVERITY HOSPITAL MEHRAN - 7 7 [facility] OUTPATIEN INC T OFFICE 16287 [facility] ANDREW TRIPLETT 7 7 PHYSICIAN OGHADDAM T VISIT S GROUP 15 MINUTES HOSPITAL MEHRAN - 6 6 [facility] OUTPATIEN INC T [facility] MEHRAN - 6 6 [facility] OUTPATIEN INC T OFFICE 28392 PAVAN MUELLER OUTPATIEN 6 6 MD ERVIN, T VISIT PSC 10 MINUTES OFFICE 49435 CAROLE TOLENTINO CONSULTAT 6 6 MEDICAL ION SERV NEW/ESTAB FOUNDATIO PATIENT N 30 MIN HOSPITAL MEHRAN - 6 6 [facility] OUTPATIEN INC T HOSPITAL MEHRAN - 6 6 MEM [facility] OUTPATIEN INC T OFFICE 74576 MOSQUEDanay CHIU OUTPATIEN 6 6 HEALTH T VISIT MEDICAL 15 GROUP MINUTES HOSPITAL MEHRAN - 6 6 [facility] OUTPATIEN INC T OFFICE 98159 PAVAN PINO OUTPATIEN 6 6 MD ERVIN, T VISIT PSC 15 MINUTES OFFICE 40949 MEHRAN OUTPATIEN 6 6 MEM [facility] T VISIT INC 10 MINUTES HOSPITAL MEHRAN - 6 6 [facility] OUTPATIEN INC T OFFICE 63774 [facility] SAMIA KIM OUTPATIEN 6 6 NURSE T VISIT PRACTITIO 15 NER GR MINUTES EMERGENCY 43707 MEHRAN 6 6 MEM [facility] DEPARTMEN INC T VISIT LOW/MODER SEVERITY HOSPITAL MEHRAN - 6 6 [facility] OUTPATIEN INC [facility] [place] - 6 6 N OUTPATIEN COMMUNTIY T HOSPITA OFFICE 66526 MEHRAN OUTPATIEN 6 6 MEM [facility] T VISIT INC 10 MINUTES HOSPITAL MEHRAN - 6 6 [facility] OUTPATIEN INC T OFFICE 15598 [facility] ANDREW OUTPATIEN 6 6 PHYSICIAN LETITIAAM T VISIT S GROUP 15 MINUTES OFFICE 86368 [facility] SAMIA KIM OUTPATIEN 6 6 NURSE T NEW 30 PRACTITIO MINUTES NER GR OFFICE 58038 MOSQUE MORRIN OUTPATIEN 6 6 HEALTH T VISIT MEDICAL 15 GROUP MINUTES OFFICE 52978 PAVAN MONTANO OUTPATIEN 6 6 MD ERVIN, T VISIT PSC 15 MINUTES HOSPITAL MEHRAN - 6 6 [facility] OUTPATIEN INC T OFFICE 59285 MEHRAN OUTPATIEN 6 6 MEM [facility] T VISIT INC 10 MINUTES HOSPITAL MEHRAN - 6 6 [facility] OUTPATIEN INC T OFFICE 05899 JOSE GO TRA OUTPATIEN 6 6 T VISIT ORTHOPAED 15 ICS PSC MINUTES OFFICE 93843 MOSQUE MORRIN OUTPATIEN 6 6 HEALTH T VISIT MEDICAL 15 GROUP MINUTES [facility] MEHRAN - 6 6 MEM [facility] OUTPATIEN INC T OFFICE 02541 JOSE GO OUTPATIEN 6 6 T VISIT ORTHOPAED 15 ICS PSC MINUTES OFFICE 17352 PAVAN MONTANO OUTPATIEN 6 6 MD ERVIN, T VISIT PSC 15 MINUTES OFFICE 59461 MEHRAN OUTPATIEN 6 6 [facility] T VISIT INC 10 MINUTES HOSPITAL MEHRAN - 6 6 [facility] OUTPATIEN INC T OFFICE 58255 MEHRAN DE LA O OUTPATIEN 6 6 [facility] T VISIT HOSPITAL 15 MINUTES OFFICE 13598 CAROLE ESCAMILLA OUTPATIEN 6 6 MEDICAL PAD T VISIT SERV 25 FOUNDATIO MINUTES [facility] 6 6 [facility] OUTPATIEN INC T OFFICE 88793 MEHRAN OUTPATIEN 6 6 MEM [facility] T VISIT INC 10 MINUTES HOSPITAL SABIANIST - 6 6 HOSPITAL OUTPATIEN & [facility] OFFICE 36696 PAVAN MONTANO OUTPATIEN 6 6 MD ERVIN, T VISIT PSC 15 MINUTES OFFICE 33830 [facility] JOSE DE JESUS OUTPATIEN 6 6 Medicine HOLLY T NEW 45 MINUTES OFFICE 37518 MEHRAN JAYLYN OUTPATIEN 6 6 [facility] T VISIT HOSPITAL 15 MINUTES OFFICE 62559 MOSQUE LIZETTRIN OUTPATIEN 6 6 HEALTH T VISIT MEDICAL 15 GROUP MINUTES OFFICE 05650 MOSQUE LIZETTRIN OUTPATIEN 6 6 HEALTH T VISIT MEDICAL 25 GROUP MINUTES OFFICE 77193 CAROLE JOHNSON OUTPATIEN 6 6 MEDICAL CLA T VISIT SERV 15 FOUNDATIO MINUTES N OFFICE 50053 [facility] MYRIAM-M OUTPATIEN 6 6 PHYSICIAN TAWANNA T NEW 45 S GROUP JAL MINUTES HOSPITAL MEHRAN - 6 6 [facility] OUTPATIEN INC [facility]OSPITAL MEHRAN - 6 6 [facility] OUTPATIEN INC T OFFICE 83311 PAVAN MONTANO OUTPATIEN 6 6 MD ERVIN, T NEW 30 PSC MINUTES OFFICE 84896 MEHRAN ZACHARY OUTPATIEN [address] [facility] VISIT HOSPITAL 15 MINUTES OFFICE 60915 MOSQUE LILIA OUTPATIEN 6 6 HEALTH YANY T VISIT MEDICAL 25 GROUP MINUTES HOSPITAL MEHRAN - 6 6 [facility] OUTPATIEN INC T OFFICE 09766 CAROLE RODRIGUEZ OUTPATIEN 6 6 MEDICAL MEGAN T VISIT SERV 15 FOUNDATIO MINUTES N OFFICE 37098 MOSQUEDanay DAHL OUTPATIEN 6 6 HEALTH T VISIT MEDICAL 25 GROUP MINUTES OFFICE [address] OUTPATIEN 6 6 [facility] 15 MINUTES OFFICE [address] OUTPATIEN 6 6 [facility]ITAL 15 MINUTES HOSPITAL MEHRAN - 6 6 [facility] OUTPATIEN INC T EMERGENCY 26848 MARAL GARCIA 6 6 PHYSICIAN FOR [facility] T VISIT HIGH/URGE NT SEVERITY OFFICE 68550 MEHRAN SHARMA OUTPATIEN 5 5 [facility] 15 MINUTES EMERGENCY 38223 MARAL GRANT DEPT 5 5 PHYSICIAN U KOLBY VISIT [facility] HIGH SEVERITY& THREAT [facility] MEHRAN - 5 5 [facility] OUTPATIEN INC T OFFICE 37693 MOSQUE LIZETTRIN OUTPATIEN 5 5 HEALTH YANY T VISIT MEDICAL 15 GROUP MINUTES OFFICE 20890 GASTROENT CASE JUS CONSULTAT 5 5 EROLOGY ION AND NEW/ESTAB HEPATOL PATIENT 60 MIN OFFICE [address] OUTPATIEN 5 5 [facility] 15 MINUTES OFFICE 47210 [facility] SUJATHA OUTPATIEN 5 5 PHYSICIAN MILY T VISIT S GROUP 15 MINUTES OFFICE 91166 MOSQUEDanay RODRIGUES OUTPATIEN 5 5 HEALTH YANY T VISIT MEDICAL 25 GROUP MINUTES [facility] MEHRAN - 5 5 [facility] OUTPATIEN INC T OFFICE 65642 CAROLE RODRIGUEZ OUTPATIEN 5 5 MEDICAL MEGAN T VISIT SERV 10 FOUNDATIO MINUTES N OFFICE 81887 MOSQUE LILIA OUTPATIEN 5 5 HEALTH YANY T VISIT MEDICAL 15 GROUP MINUTES OFFICE 95947 MOSQUEDanay MONREAL OUTPATIEN 5 5 HEALTH T VISIT MEDICAL 25 GROUP MINUTES OFFICE 50626 CAROLE JOHNSON OUTPATIEN 5 5 MEDICAL CLA T VISIT SERV 10 FOUNDATIO MINUTES N OFFICE 97728 MOSQUE TAYLOR CONSULTAT 5 5 HEALTH OFE ION MEDICAL NEW/ESTAB GROUP PATIENT 40 MIN OFFICE 31836 [place] TEAGAN ANT OUTPATIEN 5 5 MEDICAL T VISIT SERV 25 FOUNDATIO MINUTES N OFFICE 01622 MOSQUE APPLE OUTPATIEN 5 5 HEALTH ANT T VISIT MEDICAL 15 GROUP MINUTES HOSPITAL MEHRAN - 5 5 MEM [facility] OUTPATIEN INC T OFFICE 84111 [place] HANKS CONSULTAT 5 5 MEDICAL MAX ION SERV NEW/ESTAB FOUNDATIO PATIENT N 60 MIN EMERGENCY 43472 CAROLE CINDY 5 5 MEDICAL SET DEPARTMEN SERV T VISIT FOUNDATIO HIGH/URGE N NT SEVERITY [facility] UNIVERSIT - 5 5 Y OUTPATI HOSPITAL T EMERGENCY 85879 UNIVERSIT DEPT 5 5 Y VISIT HOSPITAL HIGH SEVERITY& THREAT [facility] EMERGENCY 87789 CENTRAL DEPT 5 5 MOSQUE VISIT HOSP HIGH SEVERITY& THREAT [facility] CENTRAL - 5 5 MOSQUE OUTPATIEN HOSP T OFFICE 63657 MOSQUEDanay MONREAL OUTPATIEN 5 5 HEALTH T VISIT MEDICAL 15 GROUP MINUTES OFFICE 72560 MOSQUE TOÑITO OUTPATIEN 5 5 HEALTH MAURICE T VISIT MEDICAL 15 GROUP MINUTES [facility] MEHRAN - 5 5 MEM H[facility] OUTPATIEN [facility] MEHRAN - 5 5 MEM [facility] OUTPATIEN INC T OFFICE 33369 [place] TEAGAN ANT OUTPATIEN 5 5 MEDICAL T VISIT SERV 25 FOUNDATIO MINUTES [facility] - [facility] OUTPATIEN INC T OFFICE 40705 [place] TEAGAN ANT OUTPATIEN 5 5 MEDICAL T NEW 45 SERV MINUTES FOUNDATIO N OFFICE 67803 MOSQUE TOÑITO OUTPATIEN 5 5 HEALTH MAURICE T VISIT MEDICAL 15 GROUP MINUTES OFFICE 51710 [facility] MONGIARDO OUTPATIEN 4 4 PHYSICIAN FRA T VISIT S GROUP 15 MINUTES EMERGENCY 30344 MEHRAN 4 4 MEM HOSP DEPARTMEN INC T VISIT MODERATE SEVERITY HOSPITAL MEHRAN - 4 4 [facility] OUTPATIEN INC T OFFICE 11880 [facility] ALLRAN JR OUTPATIEN 4 4 PHYSICIAN MILY T VISIT S GROUP 15 MINUTES HOSPITAL MEHRAN - 4 4 [facility] OUTPATIEN INC T OFFICE 39099 MOSQUE TOÑITO OUTPATIEN 4 4 NEUROLOGY MAURICE T VISIT CENTER 25 [place] [facility] HOSPITAL CENTRAL - 4 4 MOSQUE OUTPATIEN HOSP [facility] MEHRAN - 4 4 MEM HOS[facility] OUTPATIEN INC T OFFICE 29985 SIMON CHIU OUTPATIEN 4 4 ANT T VISIT CARDIOLOG 15 Y AT [facility] MEHRAN - 4 4 MEM HOS[facility] OUTPATIEN INC T OFFICE 96829 FAYE MCKINNEY OUTPATIEN 4 4 MAX MAX T VISIT 15 MINUTES OFFICE 82992 [facility] VJ OUTPATIEN 4 4 PHYSICIAN FRA T NEW 30 S GROUP MINUTES OFFICE 58818 [facility] SUJATHA SHAH OUTPATIEN 4 4 PHYSICIAN MILY T VISIT S GROUP 15 MINUTES HOSPITAL MEHRAN - 4 4 MEM [facility] OUTPATIEN INC T OFFICE 84056 MOSQUE TOÑITO OUTPATIEN 4 4 NEUROLOGY MAURICE T VISIT CENTER 25 [place] MINUTES OFFICE 83411 SIMON [place] OUTPATIEN 4 4 911 EMERGENCY SERVICES DISPATCHER CAROL ANN T NEW 30 ASSOCIATE MINUTES S, OFFICE 18171 [facility] SUJATHA SHAH OUTPATIEN 4 4 PHYSICIAN MILY T NEW 30 S GROUP MINUTES HOSPITAL MEHRAN - 4 4 MEM [facility] OUTPATIEN INC T OFFICE 44891 MOSQUE TOÑITO OUTPATIEN 4 4 NEUROLOGY MAURICE T VISIT CENTER 25 [place] MINUTES PERIODIC 74781 CALLUM LEONARDM PREVENTIV 4 4 WHI WHI E MED EST PATIENT 40-64YRS OFFICE 41778 MOSQUE CALLUM OUTPATIEN 4 4 HEALTH WHI T VISIT MEDICAL 15 GROUP MINUTES OFFICE 53269 CALLUM CALLUM OUTPATIEN 4 4 WHI WHI T VISIT 25 MINUTES OFFICE 15592 APPLE CHIU OUTPATIEN 4 4 ANT ANT T VISIT 15 MINUTES OFFICE 06378 FAYE MCKINNEY OUTPATIEN 4 4 MAX MAX T VISIT 15 MINUTES HOSPITAL CENTRAL - 4 4 MOSQUE OUTPATIEN HOSP T OFFICE 68571 VASCELLO VASCELLO OUTPATIEN 4 4 GIANNI GIANNI T VISIT 25 MINUTES OFFICE 80310 APPLE CHIU OUTPATIEN 4 4 ANT ANT T VISIT 15 MINUTES OFFICE 20837 MARII HAM MARII HAM OUTPATIEN 4 4 T NEW 45 MINUTES OFFICE 11018 CALLUM CALLUM OUTPATIEN 4 4 WHI WHI T VISIT 15 MINUTES OFFICE 82678 CALLUM CALLUM OUTPATIEN 4 4 WHI WHI T VISIT 25 MINUTES OFFICE 90980 GO TRA GO TRA OUTPATIEN 4 4 T VISIT 15 MINUTES OFFICE 94373 APPLE CHIU OUTPATIEN 4 4 ANT ANT T VISIT 15 MINUTES OFFICE 53376 UNIVERSIT OUTPATIEN 4 4 Y T VISIT 5 HOSPITAL MINUTES HOSPITAL UNIVERSIT - 4 4 Y OUTPATIEN HOSPITAL T HOSPITAL MEHRAN - 4 4 [facility] OUTPATIEN [facility] HOSPITAL MEHRAN [facility] 4 4 [facility] OUTPATIEN [facility] MEHRAN - 4 4 [facility] OUTPATIEN [facility] OFFICE 14868 GO TRA GO TRA CONSULTAT 4 4 ION NEW/ESTAB PATIENT 60 MIN OFFICE 93253 APPLE CHIU OUTPATIEN 4 4 ANT ANT T VISIT 25 MINUTES OFFICE 43492 ARNOLD FAYE OUTPATIEN 4 4 MAX MAX T NEW 30 MINUTES OFFICE 37353 CALLUM CALLUM OUTPATIEN 4 4 WHI WHI T VISIT 25 MINUTES HOSPITAL COPE - 3 3 MOSQUE OUTPATIEN HOSP T EMERGENCY 98604 COPE 3 3 MOSQUE [facility] T VISIT MODERATE SEVERITY EMERGENCY 13857 COPE FRANCISCA ISBELL DEPT 3 3 EMERGENCY VISIT PHYS PSC HIGH SEVERITY& THREAT FUNCJ
--- OUTSIDE RECORDS SUMMARY | 2017-07-01 19:23 | External Medical Summary Rpt ---
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 Name Role Phone ALLRAN JR, ALLRAN JR Unavailable Unavailable ALLRAN JR MILY, ALLRAN Unavailable Unavailable JR MILY PAVAN MUELLER MD, PSC, Unavailable Unavailable PAVAN MUELLER MD, PSC ARNOLD MAX, ARNOLD Unavailable Unavailable MAX ARNOLD MAX, ARNOLD Unavailable Unavailable MAX [facility] Unavailable Unavailable MEDICAL [facility], [facility] Unavailable Unavailable [facility], [facility] BEINEKE, BEINEKE Unavailable Unavailable JIMENEZ TER, JIMENEZ TER Unavailable Unavailable BESSON OFE, BESSON Unavailable Unavailable OFE [facility] Unavailable Unavailable [facility]THOP[facility]EDICS PSC, [facility] SANTIAGO, SANTIAGO Unavailable Unavailable TEAGAN ANT, TEAGAN ANT Unavailable Unavailable MICHAEL, MICHAEL Unavailable Unavailable MICHAEL MEGAN, MICHAEL Unavailable Unavailable MEGAN [facility] Unavailable Unavailable SERVICE, [facility] Unavailable Unavailable SERVICE, [facility] BUX, BUX Unavailable Unavailable BUX ANJ, BUX ANJ Unavailable Unavailable [facility], Unavailable Unavailable LLC, [facility], Unavailable Unavailable LLC, [facility] Unavailable Unavailable CONSULTANTS O, [facility] CASE JUS, CASE JUS Unavailable Unavailable [facility], Unavailable Unavailable [facility] Unavailable Unavailable PHYS PSC, [...] CLA JAROD FEDE, JAROD Unavailable Unavailable [facility], [facility], Unavailable Unavailable [facility] Unavailable Unavailable EMS, [facility] CALLUM WHI, CALLUM Unavailable Unavailable WHI CALLUM WHI, CALLUM Unavailable Unavailable I [facility] Unavailable Unavailable INC, [facility] Unavailable Unavailable [facility], [facility] Un[facility] Un[facility]ITAL P, [facility], Unavailable Unavailable [facility] GO, GO Unavailable Unavailable GO TRA, GO TRA Unavailable Unavailable GO TRA, GO TRA Unavailable Unavailable ESPINOSA LEL, SEPINOSA LEL Unavailable Unavailable [facility] Unavailable [facility], [facility] Unavailable Unavailable [facility], [facility] [...] DWI, BRIAN Unavailable Unavailable JR DWI 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 Unavailable Unavailable ASSOCIATES,, 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, GARCIA MAX, GARCIA Unavailable Unavailable MAX MARII HAM, MARII HAM Unavailable Unavailable MARII HAM, MARII HAM Unavailable Unavailable APPLE, APLPE Unavailable Unavailable APPLE ANT, APPLE Unavailable Unavailable ANT APPLE ANT, APPLE Unavailable Unavailable ANT LUDMILA KEYS Unavailable Unavailable LUDMILA KEYS Unavailable Unavailable LUDMILA GRE, Unavailable Unavailable LUDMILA GRE LUDMILA GRE, Unavailable Unavailable LUDMILA GRE HANKS MAX, HANKS Unavailable Unavailable MAX [facility] Unavailable Unavailable SERV CREDIT PRODUCT ANALYST R, [facility] CREDIT PRODUCT ANALYST R [facility] Unavailable Unavailable SERV CREDIT PRODUCT ANALYST R, [facility] SERV CREDIT PRODUCT ANALYST R MONGIARDO FRA, Unavailable Unavailable MONGIARDO FRA MORRIN, MORRIN Unavailable Unavailable MORRIN YANY, MORRIN Unavailable Unavailable YANY [facility] Unavailable Unavailable BOARD, [facility] BOARD [facility] [...] Unavailable FRANCINE PAD [facility] Unavailable Unavailable [facility] Medicine, [facility]LR[facility] Unavailable Unavailable [facility], Unavailable Unavailable [facility] VASCELLO GIANNI, Unavailable Unavailable VASCELLO GIANNI VASCELLO GIANNI, Unavailable Unavailable VASCELLO GIANNI WALKER, WALKER Unavailable Unavailable WALKER FOR, WALKER Unavailable Unavailable FOR HAROLDO HERRERA, HAROLDO Unavailable Unavailable HERRERA WHITE JUDY, WHITE JUDY Unavailable Unavailable Purpose Continuity of Care Document - 09-05-2013 through 2016 Problems Code Diagnosis DOS Provider Status [id number] OTHER 05-25-2017 L[facility] VITREOUS OPACITIES RIGHT EYE [...] 05-06-2017 COMMUNITY UNSPECIFIED ANESTH OF THE BLUE V19908 ENCOUNTER 05-01-2017 [facility] FOR OTHER [facility] PREPROCEDUR INC AL EXAMINATION Z0100 ENCOUNTER 04-27-2017 LUDMILA EXAM EYES & VISION W/O ABNORMAL FIND M7062 TROCHANTERI 04-20-2017 GRACE Kellogg [facility] LEFT HIP ASSOCIAT N54834 LATTICE 04-15-2017 ALEX DEGENERATIO N OF RETINA BILATERAL H5310 UNSPECIFIED 04-15-2017 ALEX SUBJECTIVE VISUAL DISTURBANCE S Q0700 ARNOLD-KEAGAN 04-15-2017 ALEX RI SYND W/O SPINA BIFIDA/HYDR OCEPHLUS Y51913 MIGRAINE 04-09-2017 [facility] W/O AURA NEUROLOGY INTRACT W/O STAT MIGRAINOSUS G8929 OTHER 04-09-2017 [facility] CHRONIC HEALTH PAIN MEDICAL GROUP J0140 ACUTE 04-09-2017 [facility] PANSINUSITI HEALTH S MEDICAL UNSPECIFIED GROUP [id number] PAIN IN 04-09-2017 [facility] LEFT HIP HEALTH MEDICAL GROUP R51 HEADACHE 04-09-2017 [facility] R600 LOCALIZED 04-09-2017 [facility] E039 HYPOTHYROID 04-02-2017 [facility] ISM HEALTH UNSPECIFIED MEDICAL GROUP J0100 ACUTE 04-02-2017 [facility] MAXILLARY HEALTH SINUSITIS MEDICAL UNSPECIFIED GROUP M549 DORSALGIA 04-02-2017 [facility] UNSPECIFIED HEALTH MEDICAL GROUP M5412 RADICULOPAT 03-16-2017 [facility] HY CERVICAL [facility] REGION INC M5416 RADICULOPAT 03-16-2017 [facility] HY LUMBAR [facility] REGION INC K3184 GASTROPARES 02-06-2017 [facility] IS PHYSICIANS GROUP D259 LEIOMYOMA 02-05-2017 [place] [facility]ICAL OF UTERUS SERV UNSPECIFIED FOUNDATION I10 ESSENTIAL 02-05-2017 [place] [facility] PRIMARY SERV HYPERTENSIO FOUNDATION N Z09644 UNSPECIFIED 02-05-2017 [place] [facility] OVARIAN SERV CYST RIGHT FOUNDATION SIDE P85641 UNSPECIFIED 02-05-2017 [place] [facility] OVARIAN SERV CYST [...] ANESTH OF THE BLUE K651 PERITONEAL 01-05-2017 [facility] ABSCESS PHYSICIANS GROUP G4719 OTHER 12-31-2016 [facility] [...] 12-11-2016 LAB DEVENDRA OF [facility] MICTURITION HOLDINGS L88472 UNSPECIFIED 11-10-2016 [facility] OVARIAN [facility] CYST INC UNSPECIFIED SIDE M791 MYALGIA 10-17-2016 [facility] INC G909 DISORDER 09-30-2016 [facility] AUTONOMIC MEDICAL NERVOUS GROUP SYSTEM UNS R072 PRECORDIAL 09-30-2016 [facility] PAIN HEALTH MEDICAL GROUP E782 MIXED 09-26-2016 LAB DEVENDRA HYPERLIPIDE MANISH HERIBERTO HOLDINGS H50325 ENCOUNTER 09-26-2016 [facility] TURBINE MECHANIC EXAM LLC GENERAL RTN W/O ABNORMAL FIND Z1151 ENCOUNTER 09-26-2016 [facility], FOR LLC SCREENING FOR HUMAN PAPILLOMAVI IVET L659 NONSCARRING 09-12-2016 [facility] HAIR LOSS [facility] UNSPECIFIED INC [id number] LAC W/O FB 09-01-2016 [facility] RT MIDDLE [facility] FINGER W/O INC DAMAGE NAIL INIT [id number] LAC W/O FB 09-01-2016 MARAL UNS FINGER PHYSICIANS, W/O DAMAGE PLLC NAIL INITIAL Q395MPN CONTACT OTH 09-01-2016 [facility] OBJECT NOT INC ELSWHERE CLASS INIT S33977 KITCHEN 09-01-2016 [facility] SINGLE-FAM MEM [facility] HOUSE PLACE INC OCCUR EXT CAUSE Z23 ENCOUNTER 09-01-2016 [facility] FOR [facility] IMMUNIZATIO INC N M4806 SPINAL 08-27-2016 [facility]Y LUMBAR HOSPITA REGION M5126 OTH 08-27-2016 [facility] INTERVERTEB COMMUNTIY RAL DISC HOSPITA DISPLACEMEN T LUMBAR RGN M542 CERVICALGIA 08-25-2016 [facility] PHYSICIANS GROUP D229 MELANOCYTIC 08-07-2016 [facility] NURSE NEVI PRACTITIONE UNSPECIFIED R GR I868 VARICOSE 08-07-2016 [facility] NURSE VEINS OF PRACTITIONE OTHER R GR SPECIFIED SITES L709 ACNE 08-07-2016 [facility] NURSE UNSPECIFIED PRACTITIONE R GR R601 GENERALIZED 08-05-2016 LAB DEVENDRA EDEMA MANISH HOLDINGS M8580 OTH SPEC 07-08-2016 [facility] D/O BONE [facility]ALTH DENSITY MEDICAL STRUCTURE GROUP UNS SITE M545 LOW BACK 07-03-2016 [facility] PAIN [facility]THOP[facility]IC S PSC M461 SACROILIITI 06-27-2016 [facility] S NOT [facility] ELSEWHERE INC CLASSIFIED H5213 MYOPIA 06-12-2016 [place] [facility] BIL[place]AL SERV FOUNDATION H5319 OTHER 06-12-2016 [place] [facility] SUBJECTIVE SERV VISUAL FOUNDATION DISTURBANCE S H05884 CHRONIC 05-14-2016 [facility] MIGRAINE HEALTH W/O AURA MEDICAL INTRACT W/O GROUP STAT MIGR M810 AGE-RELATED 05-09-2016 [facility] OSTEOPOROSI INC S W/O CURRNT PATH FX Z1231 ENCOUNTER 05-09-2016 [place] SCREENING MEDICAL MAMMO MALIG IMAGING ASS NEOPLASM BREAST S28677 ENCOUNTER 05-09-2016 [place] FOR MEDICAL SCREENING IMAGING ASS FOR OSTEOPOROSI S K5909 OTHER 05-06-2016 [facility] CONSTIPATIO Medicine N K591 FUNCTIONAL 05-06-2016 [facility] DIARRHEA Medicine M4800 SPINAL 05-06-2016 [facility] UNSPECIFIED R140 ABDOMINAL 05-06-2016 [facility] DISTENSION Medicine GASEOUS R6881 EARLY 05-06-2016 [facility] SATIETY Medicine R5382 CHRONIC 04-29-2016 [facility] UNSPECIFIED MEDICAL GROUP R5383 OTHER 04-18-2016 LAB DEVENDRA FATIGUE MANISH HOLDINGS R42 DIZZINESS 04-07-2016 [facility] AND PH[facility]ANS GIDDINESS GROUP [id number] CONCUSSION 04-07-2016 [facility] WITHOUT LOC PHYSICIANS INITIAL GROUP ENCOUNTER E31430 ACUTE 03-02-2016 [facility] SUPPURATIVE MEMORIAL OM W/O HOSPITAL RUPT EAR DRUM UNS EAR R110 NAUSEA 02-27-2016 [facility]ALTH MEDICAL GROUP R611E4T CONCUSSION 02-27-2016 [facility] W/LOC UNS HEALTH DURATION MEDICAL INITIAL GROUP ENCOUNTER M1611 UNILATERAL 01-29-2016 [place] PRIMARY [facility]ICAL OSTEOARTHRI IMAGING ASS TIS RIGHT HIP E36277 PAIN IN 01-29-2016 [place] RIGHT HIP MEDICAL IMAGING ASS H5210 MYOPIA 01-15-2016 [place] MEDICAL UNSPECIFIED SERV EYE FOUNDATION H5203 HYPERMETROP 12-27-2015 [facility] IA GRE BILATERAL J069 ACUTE UPPER 12-13-2015 LAB DEVENDRA MAN[facility] RESPIRATORY HOLDINGS INFECTION UNSPECIFIED R928 OTH ABNORM 12-13-2015 [facility] & HEALTH INCONCLUSIV MEDICAL E FIND ON GROUP DX IMAG BREAST Z6829 BODY MASS 12-13-2015 [facility] INDEX BMI HEALTH 29.0-29.9 MEDICAL ADULT GROUP J0190 ACUTE 12-09-2015 [facility] R05 COUGH 11-16-2015 MARALRadha ASTUDILLO, [facility] M5430 SCIATICA 10-17-2015 [facility] UNSPECIFIED HEALTH SIDE MEDICAL GROUP H539 UNSPECIFIED 10-04-2015 [facility] VISUAL HEALTH DISTURBANCE MEDICAL GROUP R358 OTHER 10-04-2015 [facility] POLYURIA HEALTH MEDICAL GROUP R079 CHEST PAIN 10-02-2015 [place] MEDICAL UNSPECIFIED SERV FOUNDATION R9431 ABNORMAL 10-02-2015 [facility] ELECTROCARD LAR IOGRAM CONSULTANTS O W78229 OTHER LONG 10-01-2015 [facility] TERM PHYSICIANS CURRENT GROUP DRUG THERAPY Z0000 ENCOUNTER 09-25-2015 [facility] GEN ADULT HEALTH MED EXAM MEDICAL W/O GROUP ABNORMAL FIND A6000 HERPESVIRAL 08-17-2015 [facility] INFECTION HEALTH OF MEDICAL UROGENITAL GROUP SYSTEM UNS B009 HERPESVIRAL 08-17-2015 [facility] INFECTION HEALTH UNSPECIFIED MEDICAL GROUP Z202 CONTACT 08-17-2015 [facility] WITH HEALTH EXPOSURE MEDICAL INFECT GROUP SEXUAL MODE TRANSMS 70965 DEGEN 07-26-2015 [place] LUMBAR/LUMB MEDICAL OSACRAL IMAGING ASS INTERVERTEB RAL DISC 7242 LUMBAGO 07-26-2015 [place] [facility] 73837 PROGRESSIVE 07-25-2015 [place] [facility] HIGH SERV MYOPIA FOUNDATION 84372 CHRONIC 07-11-2015 [facility] MIGRAINE HEALTH W/O MEDICAL W/INTRACTAB GROUP LE W/O SM 7231 CERVICALGIA 07-11-2015 [facility] MEDICAL GROUP 7049 UNSPECIFIED 07-02-2015 [facility] DISEASE OF HEALTH HAIR AND MEDICAL HAIR GROUP FOLLICLES 7245 UNSPECIFIED 07-02-2015 [facility] BACKACHE HEALTH MEDICAL GROUP 7881 DYSURIA 07-02-2015 [facility] DEV[facility] HOLDINGS 3384 CHRONIC 06-22-2015 LAB DEV[facility]DRA PAIN MAN[facility] SYNDROME HOLDINGS 5990 URINARY 06-22-2015 LAB DEVENDRA TRACT MANISH INFECTION HOLDINGS SITE NOT SPECIFIED 53087 OTHER 06-15-2015 [place] [facility] VITREOUS SERV OPACITIES FOUNDATION 5363 GASTROPARES 05-14-2015 [place] [facility] IS SERV [facility]OUNDATION 5609 UNSPECIFIED 05-14-2015 [place] [facility] INTESTINAL SERV FOUNDATION OBSTRUCTION 7873 FLATULENCE 05-14-2015 [place] [facility] ERUCTATION SERV AND GAS FOUNDATION PAIN 4011 ESSENTIAL 05-01-2015 [facility] HYPERTENSIO HEALTH N, BENIGN MEDICAL GROUP 36592 ACUTE 05-01-2015 [facility] IDIOPATHIC HEALTH PERICARDITI MEDICAL S GROUP 57834 OTHER CHEST 05-01-2015 [facility] PAIN [facility] MEDICAL GROUP V7281 PRE-OPERATI 05-01-2015 [facility] CARDIOVASCU MEDICAL LAR GROUP EXAMINATION 7213 LUMBOSACRAL 04-23-2015 [place] [facility] SPONDYLOSIS IMAGING ASS WITHOUT MYELOPATHY 79559 DISPLCMT 04-23-2015 [place] LUMBAR [facility] INTERVERT IMAGING ASS DISC W/O MYELOPATHY 70445 LATTICE 04-20-2015 [place] [facility] DEGENERATIO SERV N OF FOUNDATION PERIPHERAL RETINA 2449 UNSPECIFIED 04-08-2015 [facility] HYPOTHYROID ISM 3671 MYOPIA 04-08-2015 [facility] 83376 OTHER 04-08-2015 [facility] DISTORTIONS AND ENTOPTIC PHENOMENA 3688 OTHER 04-08-2015 [place] MEDICAL SPECIFIED SERV VISUAL FOUNDATION DISTURBANCE S 44234 PAIN IN OR 04-08-2015 [facility] 4019 UNSPECIFIED 04-08-2015 [facility] HYPERTENSIO N 4239 UNSPECIFIED 04-08-2015 [place] DISEASE [facility] PERICARDIUM 4289 UNSPECIFIED 04-08-2015 [facility] FAILURE SERV CREDIT PRODUCT ANALYST R 20113 OTHER 04-08-2015 [facility] NOT ELSEWHERE CLASSIFIED 07596 CHEST PAIN 04-08-2015 [place] [facility]ICAL UNSPECIFIED SERV FOUNDATION V1259 PERS HX, 04-08-2015 [place] [facility]ICAL OTHER SERV DISEASES OF FOUNDATION CIRCULATORY SYSTEM 3699 UNSPECIFIED 04-07-2015 [facility] VISUAL EMERGENCY LOSS PHYS PSC 05546 UNSPECIFIED 04-07-2015 [facility] DISORDER AMBULANCE OF EYE SERVICE 7820 DISTURBANCE 03-29-2015 [facility] SKIN [facility] SENSATION MEDICAL GROUP 48168 REGULAR 03-28-2015 [place] [facility] ASTIGMATISM SERV FOUNDATION 50523 INTERMITTEN 03-28-2015 [place] [facility] T SERV EXOTROPIA, FOUNDATION ALTERNATING 50584 OTHER 03-01-2015 [place] SPECIFIED MEDICAL DISORDERS IMAGING ASS OF BREAST 47207 UNSPECIFIED 03-01-2015 [facility] ABNORMAL [facility] MAMMOGRAM INC 98697 ATROPHIC 02-26-2015 [facility], GASTRITIS LLC WITHOUT MENTION OF HEMORRHAGE 89746 UNS 02-26-2015 [facility] GASTRITIS&G [facility] HOS[facility] ASTRODUODIT INC IS W/O MENTION HEMORR 66950 NAUSEA 02-26-2015 [facility] ALONE [facility]OS[facility] INC 92903 ABDOMINAL 02-26-2015 [facility] PAIN, MEM HOS[facility] GENERALIZED INC V5869 LONG-TERM 02-26-2015 [facility] (CURRENT) MEM [facility]OS[facility] USE OF INC OTHER MEDICATIONS 7804 DIZZINESS 11-29-2014 [facility] GIDDINESS MEDICAL GROUP 7840 HEADACHE 11-29-2014 [facility] MEDICAL GROUP 60007 OTHER 10-27-2014 [facility] DISEASES OF PHYSICIANS LARYNX GROUP 07338 DYSPHONIA 10-27-2014 [facility] PHYSICIANS GROUP 86585 DYSPHAGIA 10-27-2014 [facility] UNSPECIFIED PHYSICIANS GROUP V642 SURG/OTH 10-23-2014 [facility] PROC NOT [facility] OUT [facility]OSP[facility] P BECAUSE PTS DECN 47006 EARLY 10-17-2014 [facility] SATIETY PHYSICIANS GROUP 15446 DYSPHAGIA 10-17-2014 [facility] OROPHARYNGE PHYSICIANS AL PHASE GROUP 91998 ABDOMINAL 10-17-2014 [facility] PAIN, PHYSICIANS EPIGASTRIC GROUP 78850 INSOMNIA 09-27-2014 [facility] UNSPECIFIED NEUROLOGY CENTER [place] V700 ROUTINE 09-21-2014 [facility] MEDICAL INC EXAM@HEALTH CARE FACL V7612 OTHER 09-21-2014 [place] SCREENING MEDICAL MAMMOGRAM IMAGING ASS 56514 ABDOMINAL 09-18-2014 [place] PAIN, MEDICAL UNSPECIFIED IMAGING ASS SITE 3829 UNSPECIFIED 09-16-2014 [facility] SANTANA OTITIS MEDIA 4619 ACUTE 09-16-2014 [facility]AY[facility] SANTANA SINUSITIS, UNSPECIFIED V0481 NEED 09-16-2014 FAYE SANTANA PROPHYLACTI C VACCINATION &INOCULATIO N FLU 3502 ATYPICAL 09-06-2014 [facility] FACE PAIN NEUROLOGY CENTER [place] 70524 MIGRAINE 08-24-2014 [facility] W/O AURA NEUROLOGY INTRACT W/O CENTER [place] STATUS MIGRAINOSUS 2181 INTRAMURAL 08-23-2014 [facility] LEIOMYOMA 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, 2189 LEIOMYOMA 08-15-2014 [place] OF UTERUS, MEDICAL UNSPECIFIED IMAGING ASS 6202 OTHER AND 08-15-2014 [facility] UNSPECIFIED MEM HOSP OVARIAN INC CYST 6259 UNSPEC 08-15-2014 [place] [facility]OM [facility] IMAGING ASS W/FEMALE GENITAL ORGANS 7812 ABNORMALITY 08-09-2014 [facility] NEUROLOGY CENTER KORINA V7231 ROUTINE 08-07-2014 CALLUM JERRYI GYNECOLOGIC AL EXAMINATION V762 SCREENING 08-07-2014 LABORATORY FOR DEVENDRA OF MALIGNANT MANISH H NEOPLASM OF THE CERVIX 27389 ESOPHAGEAL 07-31-2014 [facility] 7291 UNSPECIFIED 06-04-2014 EMP[facility] INC MYALGIA AND MYOSITIS 5950 ACUTE 05-03-2014 CALLUM JERRYI CYSTITIS 33676 OTHER 05-03-2014 APPLE [place] [address] OSTEOARTHRO 04-21-2014 FAYE Grossman INVLV MX SITES BUT NOT SPEC GEN 16487 BENIGN 04-17-2014 [facility] PAROXYSMAL [facility] POSITIONAL HOSP VERTIGO V571 OTHER 04-17-2014 [facility] PHYSICAL [facility] THERAPY HOSP 7210 CERVICAL 03-21-2014 VASCELLO SPONDYLOSIS GIANNI WITHOUT MYELOPATHY 7230 SPINAL 03-20-2014 [facility] STENOSIS IN [place] CERVICAL REGION 42396 SPINAL STEN 03-20-2014 [facility] LUMB REG [place] W/O NEUROGENIC CLAUDICATIO N 56165 SPINA 03-20-2014 [facility] BIFIDA WITH [place] HYDROCEPHAL US CERVICAL REGION 75399 POSTLAMINEC 01-31-2014 MARII HAM JUSTINO SYNDROME CERVICAL REGION 7244 THORACIC/ABRAHAM 01-31-2014 MARII HAM MBOSACRAL NEURITIS/RA DICULITIS UNSPEC 0549 HERPES 01-26-2014 CALLUM JERRYI SIMPLEX WITHOUT MENTION OF COMPLICATIO N 5533 DIAPHRAGMAT 01-19-2014 CALLUM JERRYI ALTAGRACIA W/O MENTION OBSTRUCTION /GANGREN 7821 RASH AND 01-19-2014 CALL[facility] WHI OTHER NONSPECIFIC SKIN ERUPTION 7850 UNSPECIFIED 01-18-2014 [facility] ANT TACHYCARDIA 09039 CHRONIC 01-13-2014 [facility] W/O AURA W/O INTRACTABLE W/O SM 7218 OTHER 01-10-2014 [facility] ALLIED JANET DISORDERS OF SPINE 7220 DISPLCMT 01-10-2014 [facility] CERV JANET INTERVERT DISC WITHOUT MYELOPATHY 25327 KYPHOSIS 01-10-2014 [facility] ACQUIRED JANET POSTURAL V454 ARTHRODESIS 01-10-2014 [facility] STATUS JANET V1641 FAMILY 01-05-2014 ALYCE HISTORY OF JANET MALIGNANT NEOPLASM OVARY 7224 DEGENERATIO 12-29-2013 GO TRA N OF CERVICAL INTERVERTEB RAL DISC 2724 OTHER AND 12-28-2013 APPLE ANT UNSPECIFIED HYPERLIPIDE HERIBERTO 23329 ABDOMINAL 12-08-2013 CALLUM WHI PAIN, LEFT LOWER QUADRANT 4299 UNSPECIFIED 09-10-2013 [facility] DISEASE [facility] 15338 ALTERED 09-06-2013 [facility] MENTAL RADIOLOGY STATUS ASSOC [...] #3 93 MG 8 TA BL ET WV 65 07 08 30 7 00 RI [...] AI ZA 75 17 17 44 D WV 0 99 PH IN AR E MA [...] CY TA BL #3 ET 93 8 WV 65 05 06 30 15 00 RI Ac OM 16 -1 -0 .0 00 TE ti ET 20 5- 9- 00 01 ve GERARDO 52 20 20 17 AI ZI 11 17 17 73 D NE 0 66 PH AR 25 MA CY MG #3 TA 93 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 J3490 [facility] LAURENT IED DRUGS 7 MEM HOSP [facility]OS[facility] INC INC IMPLTJ/RP 09099 [place] SPOON[facility] LCMT 7 SURGICAL E ITHCL/EDR L DRUG NFS PRGRBL PUMP BASIC 81129 [facility] LAURENT METABOLIC 7 MEM HOSP MEM HOSP PANEL INC INC CALCIUM TOTAL BLOOD 72703 [facility] LAURENT COUNT 7 MEM HOSP MEM HOSP COMPLETE INC INC AUTO&AUTO DIFRNTL WBC OPHTH 29842 [facility] 7 XM&EVAL COMPRHNSV ESTAB PT 1/> DETERMINA 13366 LUDMILA PURCELL 7 REFRACTIV E STATE ARTHROCEN 62482 [facility] RODRIGUEZ TESIS 7 ORTHOPEDI ASPIR&/IN C J MAJOR ASSOCIAT JT/BURSA W/O US COMPUTERI 63131 ALEX JOHNSON ZED 7 OPHTHALMI C IMAGING RETINA DUP-SCAN 36926 CNTR[facility] [place] SCALF XTR VEINS 7 RADIOLOGY UNILATERA L/LIMITED STUDY URNLS DIP 45940 [facility] CLEVE 7 HEALTH STICK/TAB MEDICAL LET RGNT GROUP NON-AUTO W/O MICRSCP RADEX HIP 88542 [facility] 7 RADIOLOGY UNILATERA ASSOC L WITH PELVIS 2-3 [place] [address] CAROLE ZARCO TRANSVAGI 7 [place] [address] GRACE SANTIAGO ABDOMEN & 7 MEDICAL PELVIS IMAGING W/CONTRAS ASS T MATERIAL FINAL G9638 [facility] SANTIAG[facility] REPORTS 7 MEDICAL W/O DOC IMAGING 1/MORE ASS DOSE REDUCTION TECH FINAL G9551 [facility] SANTIAG[facility] REPR ABD 7 MEDICAL IMAG STS IMAGING W/O ASS INCIDNT [place]: [place] [address] [facility] LAURENT UREA 7 MEM HOSP [facility]OS[facility] NITROGEN INC INC QUANTITAT [place] CREATININ 18995 [facility] LAURENT E BLOOD 7 MEM HOSP MEM HOSP INC INC COLLECTIO 40654 [facility] LAURENT N VENOUS 7 MEM HOSP MEM HOSP BLOOD INC INC VENIPUNCT URE ANES 03680 [facility] [place] UPPER GI 7 ANESTH ENDOSCOPY OF THE PROXIMAL BLUE TO DUODENUM SLEEP STD 19290 MERHAN LAURENT AIRFLOW 7 MEM HOSP MEM HOSP HRT INC INC RATE&O2 SAT EFFORT UNATT URINE 66844 [facility] LAURENT 7 MEM HOSP MEM HOSP TEST INC [place] [address] MEHRAN LAURENT HEAD/BRAI 7 MEM HOSP MEM HOS[facility] N W/[place] [address] [facility] LAURENT INFUSION 7 MEM HOSP MEM HOS[facility] THERAPY/P INC INC ROPHYLAXI S /DX 1ST TO 1 HR URNLS DIP 39767 [facility] STICK/TAB INC INC LET REAGENT AUTO MICROSCOP Y THERAPEUT 44789 [facility] IC 7 [facility] INJECTION INC INC IV PUSH EACH NEW DRUG FINAL G9638 [place] [facility] REPORTS 7 MEDICAL W/O DOC IMAGING 1/MORE [place]X 53158 PAVAN MUELLER DX/THER 7 MD ERVIN, SBST PSC INTRLMNR LMBR/SAC W/IMG GDN ROM 52117 [facility] LAURETN CHELSEY&REPR 7 [facility] T EA XTR INC INC EX HAND/EA TRNK SCTJ SPI GLUC BLD 33690 [facility] LAURENT GLUC MNTR 7 [facility] DEV INC INC CLEARED FDA SPEC HOME USE ANTINUCLE 12608 [facility] AR 7 [facility]TIB[facility] [place] [address] LAB [facility] BLOOD/URI 7 [facility] ACID HOLDINGS HOLDINGS COMPREHEN 42151 [facility] LAB DEV[facility]DR[facility] SIVE 7 [facility] METABOLIC [facility] HOLDINGS PANEL C-REACTIV 66737 [facility] E PROTEIN 7 [facility] HOLDINGS BLOOD 24869 [facility] COUNT 7 [facility] COMPLETE [facility] HOLDINGS AUTO&AUTO DIFRNTL WBC RHEUMATOI 06490 [facility] D FACTOR 7 [facility] QUANTITAT [facility] HOLD[facility] [place] CHEMODERV 24362 [facility] SHOJAEI-M ATE 7 PHYSICIAN OGHADDAM FACIAL/TR S GROUP IGEM/CERV MUSC MIGRAINE BOTULINUM J0585 [facility] MYRIAM-Mt TOXIN 7 PHYSICIAN OGHADDAM TYPE A S GROUP PER UNIT COLLECTIO 91986 [facility] LAURENT N VENOUS 6 [facility] BLOOD INC INC VENIPUNCT URE IMMUNOASS 50975 [facility]UR[facility] AY TUMOR 6 [facility] ANTIGEN INC INC QUANTITAT [place] INJECTION 90071 PAVAN MUELLER MD, SINGLE/ML PSC T TRIGGER POINT 1/2 [place] [address] MEHR[facility]AN TRANSVAGI 6 [facility] NAL INC INC LIPID 69207 [facility] LAB DEVENDRA PANEL 6 [facility] HOLDINGS CYTP C/V 84640 [facility], PICKLESIM AUTO THIN 6 [facility] ER JR YEE LYR PREPJ SCR MNL RESCR PHYS COMPREHEN 76759 LAB [facility] LAB DEVENDRA SIVE 6 [facility] METABOLIC [place] [address] LAB [facility] LAB [facility] THYROID 6 [facility] STIMULATI HOLDINGS [place] [address] LAB DEVENDRA LAB DEVENDRA THYROXINE 6 [facility] TOTAL HOLDINGS HOLDINGS IADNA 89797 [facility], [facility]ICKLESIM HUMAN 6 [facility] ER JR YEE [place] VIRUS HIGH-RISK TYPES COLLECTIO 82668 [facility] LAURENT N VENOUS 6 [facility] BLOOD INC INC [place] [address] MEHRAN LAURENT [facility] 6 [facility] [place] [address] MEHRAN LAURENT THYROID 6 [facility] STIMULATI [place] [address] MEHRAN LAURENT TRIIODOTH 6 [facility] YRONINE INC INC T3 FREE BLOOD 49986 MEHRAN LAURENT COUNT 6 [facility] COMPLETE INC INC AUTO&AUTO DIFRNTL WBC SIMPLE 13663 MEHRAN LAURENT REPAIR 6 [facility] SCALP/NEC INC INC K/AX/BLUE T/TRUNK 2.5CM/< IM ADM 63526 MEHRAN LAURENT PRQ ID 6 [facility] SUBQ/IM INC INC NJXS 1 VACCINE LAMNOTMY 82250 [facility] GO INCL 6 W/DCMPRSN ORTHOPAED NRV ROOT ICS PSC 1 INTRSPC LUMBR ANESTHESI 20972 [facility] A LUMBAR 6 ANESTHESI JAVI REGION A GROUP NOS PS BOTULINUM J0585 [facility] MYRIAM-Mt TOXIN 6 PHYSICIAN OGHADDAM TYPE A S GROUP PER UNIT CHEMODERV 04748 [facility] MYRIAM-M ATE 6 PHYSICIAN OGHADDAM FACIAL/TR S GROUP IGEM/CERV MUSC MIGRAINE COMPREHEN 78297 LAB DEVENDRA LAB DEVENDRA SIVE 6 [facility] METABOLIC HOLDINGS HOLDINGS PANEL BLOOD 58991 LAB DEVENDRA LAB DEVENDRA COUNT 6 [facility] COMPLETE HOLDINGS HOLDINGS AUTO&AUTO DIFRNTL WBC ECG 61551 MEHRAN TORRES JR ROUTINE 6 [facility] HOSPITAL W/LEAST P 12 LDS I&R ONLY BLOOD 03480 MEHRAN HEON COUNT 6 [facility] COMPLETE INC INC AUTO&AUTO DIFRNTL WBC COLLECTIO 28723 MEHRAN LAURENT N VENOUS 6 [facility] BLOOD INC INC VENIPUNCT URE RADIOLOGI 72060 [facility] C EXAM 6 MEDICAL CHEST 2 IMAGING VIEWS ASS FRONTAL&L ATERAL DRUG TST G0477 MEHRAN MEHRAN PRESUMP;C 6 [facility] PBL BEING INC INC READ DC OPT OBV ONLY ECG 15207 MEHRAN LAURETN ROUTINE 6 [facility] ECG INC INC W/LEAST 12 LDS TRCG ONLY W/O I&R BASIC 43669 MEHRAN MEHRAN METABOLIC 6 [facility] PANEL INC INC CALCIUM TOTAL INJECTION 08641 PAVAN MUELLER ANJ 6 MD ERVIN, SINGLE/ML PSC T TRIGGER POINT 1/2 MUSCLES MRI 96888 JORIGRASS GO TRA SPINAL 6 CANAL ORTHOPAED LUMBAR ICS PSC [place] [address] PAVAN PINO CHARMAINE JOINT 6 MD ERVIN, ARTHRGRPH PSC Y&/ANES/S TEROID W/BRENTON INJ PROC G0260 MEHRAN LAURENT SI 6 [facility] JNT;ANES INC INC STEROID&/ TX AGT&ARTHR OGRPH RADEX HIP 05126 [facility] 6 [place] ORTHOPAED L WITH ICS PSC PELVIS 1 VIEW DRUG TST G0477 MEHRAN LAURENT PRESUMP;C 6 [facility] PBL BEING INC INC READ DC OPT OBV ONLY THERAPEUT 56576 MEHRAN DE LA O IC 6 [facility] TIC/DX INJECTION SUBQ/IM INJECTION J1885 MEHRAN DE LA O 6 [facility] K[facility]OL[facility] TROMETHAM INE PER 15 MG INJECTION J1040 MEHRAN DE LA O 6 [facility] DNISOLONE ACETATE 80 MG SENSORMOT 13742 [place] OR XM 6 MEDICAL MEDICAL 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 FILLER SERV SERV CHELSEY FOUNDATIO FOUNDATIO OCULAR N N DEVIJ W/I&R SPX COMPUTERI 18445 CAROLE ESCAMILLA ZED 6 MEDICAL PAD OPHTHALMI SERV C IMAGING FOUNDATIO RETINA N CHEMODERV 25787 [facility]AIN TOÑITO ATE 6 [facility] FACIAL/TR MEDICAL IGEM/CERV GROUP [facility] MIGRAINE BOTULINUM J0585 JAIN TOÑ[facility]O TOXIN 6 [facility] TYPE A MEDICAL PER UNIT GROUP DXA BONE 80138 [facility] DENSITY 6 MEDICAL JANET STUDY 1/> IMAGING SITES ASS AXIAL SKEL SCREENING G0202 [facility] 6 [facility] JANET MAMMOGRAP IMAGING JOSELIN ASS INCL CAD WHEN PERFORMD COMPUTER- 34136 [place] [facility] AIDED MEDICAL JANET DETECTION IMAGING ASS SCREENING MAMMOGRAP [facility] G[address] [facility] ASSESS & MGMT PT INJECTION J1885 MEHRAN DE LA O [address] [place] [address] TROMETHAM INE PER 15 MG THERAPEUT 59362 MEHARN DE LA O IC 6 [facility] TIC/DX INJECTION SUBQ/IM INJECTION J1040 MEHRAN DE LA O [address] [place] [address] DNISOLONE ACETATE 80 MG INJECTION J1885 [facility] TROMETHAM INE PER 15 MG THERAPEUT 73061 JAIN MORRIN IC [address] [place] [address] PROPHYLAC MEDICAL TIC/DX GROUP INJECTION SUBQ/[place] [address] LAB DEVENDRA LAB DEVENDRA THYROXINE 6 [facility] [place] [address] LAB DEVENDRA LAB DEVENDRA TRIIODOTH 6 [facility] YRONINE HOLDINGS HOLDINGS T3 TOTAL TT3 COMPREHEN 25661 LAB DEVENDRA LAB DEVENDRA SIVE 6 [facility] METAB[place] [address] LAB DEVENDRA LAB DEVENDRA IRON 6 [facility] [place] [address] LAB DEVENDRA LAB DEVENDRA FOLIC 6 [facility] [place] [address] LAB DEVENDRA LAB DEVENDRA THYROID 6 [facility] STIMULATI HOLDINGS HOLDINGS NG HORMONE TSH CYANOCOBA 46626 LAB DEVENDRA LAB DEVENDRA DAVID 6 [facility] VITAMIN HOLDINGS HOLDINGS B-12 25 80780 LAB DEVENDRA LAB DEVENDRA HYDROXY 6 [facility] INCLUDES HOLDINGS HOLDINGS FRACTIONS IF PERFORMED MICROSOMA 95101 LAB DEVENDRA LAB DEVENDRA L 6 [facility] ANTIBODIE HOLDINGS HOLDINGS S EACH BLOOD 07775 LAB DEVENDRA LAB DEVENDRA COUNT 6 [facility] COMPLETE HOLDINGS HOLDINGS AUTO&AUTO DIFRNTL WBC IRON 32231 LAB DEVENDRA LAB DEVENDRA BINDING 6 [facility] CAPACITY HOLDINGS HOLDINGS LOCM Q9967 MEHRAN HEON 300-399 6 [facility] MG/ML INC INC IODINE CONCENTRA [place]ION [place] NJX 63971 PAVAN DURON CRI DX/THER 6 MD ERVIN, SBST PSC EPIDURAL/ SUBARACH LUMBAR/SA CRAL INJECTION J1030 MEHRAN LAURENT 6 [facility] METHYLPRE INC INC DNISOLONE ACETATE 40 MG HOSPITAL G0463 MEHRAN LAURENT OUTPATIEN 6 [facility] T CLIN INC INC VISIT ASSESS & MGMT PT THERAPEUT 09789 JAINDanay RODRIGUES IC 6 [facility] PROPHYLAC MEDICAL TIC/DX GROUP INJECTION SUBQ/IM INJECTION J3301 JAINDanay RODRIGUES 6 [facility] TRIAMCINO MEDICAL LONE GROUP [place] [address] [place] [address] [facility] CERVICAL 6 MEDICAL JANET SPINE W/[place] [address] [facility] HEAD/BRAI 6 MEDICAL JANET N W/O IMAGING CONTRAST ASS MATERIAL RADEX HIP 53453 [facility] BEINEKE 6 MEDICAL UNILATERA IMAGING L WITH ASS PELVIS 2-3 VIEWS CHEMODERV 68706 JAIN TOÑITO ALBARADO 6 [facility] FACIAL/TR MEDICAL IGEM/CERV GROUP [facility] MIGRAINE BOTULINUM J0585 JAIN TOÑITO TOXIN 6 [facility] TYPE A MEDICAL PER UNIT GROUP OPHTH 13300 [facility] 6 GRE GRE XM&EVAL COMPRE NEW PT 1/> VST COMPREHEN 56702 LAB DEVENDRA LAB DEVENDRA SIVE 6 [facility] [place] [address] LAB DEVENDRA LAB DEVENDRA THYROID 6 [facility] STIMULATI HOLDINGS HOLDINGS NG HORMONE TSH BLOOD 09961 LAB DEVENDRA LAB DEVENDRA COUNT 6 [facility] COMPLETE HOLDINGS HOLDINGS AUTO&AUTO DIFRNTL WBC LIPID 56888 LAB DEVENDRA LAB DEVENDRA PANEL 6 [facility]INGS HOLDINGS PRESSURIZ 79507 MEHRAN LAURENT ED/NONPRE 6 [facility] SSURIZED INC INC INHALATIO N TREATMENT INJECTION J1040 MEHRAN SHARMA 5 [facility] DNISOLONE ACETATE 80 MG INJECTION J0696 MEHRAN SHARMA 5 [facility] NE SODIUM PER 250 MG THERAPEUT 60225 MEHRAN SHARMA IC 5 [facility] TIC/DX INJECTION SUBQ/IM CHEMODERV 60791 JAIN TOÑITO ATE 5 [facility] FACIAL/TR MEDICAL IGEM/CERV GROUP [facility] MIGRAINE BOTULINUM J0585 JAIN TOÑITO TOXIN 5 [facility] TYPE A MEDICAL PER UNIT GROUP OBSERVATI 17987 [facility] 5 PHYSICIAN FEDE DISCHARGE S GROUP [facility] G0378 MEHRAN LAURENT OBSERVATI 5 [facility] ON INC INC SERVICE PER HOUR COMPREHEN 28109 MEHARN LAURENT SIVE 5 [facility] METABOLIC INC INC PANEL CREATINE 84218 MEHRAN LAURENT KINASE MB 5 [facility] FRACTION INC INC ONLY COLLECTIO 65123 MEHRAN Montemayor VENOUS 5 [facility] BLOOD INC INC VENIPUNCT URE ECHO 14156 CAROLE MEYER [facility] R-T 5 MEDICAL GABRIEL 2D SERV W/WOM-MOD FOUNDATIO E COMPL N SPEC&COLR D CREATINE 11-17-201 86163 MEHRAN LAURENT KINASE 5 [facility] TOTAL INC INC NONINVASI 65463 MEHRAN LAURENT VE 5 [facility] EAR/PULSE INC [place] [address] MEHRAN LAURENT TROPONIN 5 [facility] QUANTITAT INC INC [place] BLOOD 69497 MEHRAN LAURENT COUNT 5 [facility] COMPLETE INC INC AUTO&AUTO DIFRNTL WBC INITIAL [address] [facility] 5 CULAR MAT CARE/DAY CONSULTAN 50 TS O MINUTES ECG 95074 MEHRAN TORRES JR ROUTINE 5 [facility] W/LEAST P 12 LDS I&R ONLY URNLS DIP 97615 MEHRAN LAURENT 5 [facility] STICK/TAB INC INC [place] [address] MEHRAN LAURENT TROPONIN 5 [facility] QUANTITAT INC INC [place] THERAPEUT 68910 MEHRAN LAURENT IC 5 [facility] INJECTION INC INC IV PUSH EACH NEW DRUG NONINVASI 28468 MEHRAN LAURENT VE 5 [facility] EAR/PULSE INC INC OXIMETRY SINGLE DETER HEMOGLOBI 72243 MEHRAN LAURENT N 5 [facility] GLYCOSYLA INC INC KARLA A1C BLOOD 02298 MEHRAN LAURENT COUNT 5 [facility] COMPLETE INC INC AUTO&AUTO DIFRNTL WBC INITIAL 06254 [facility] JAROD OBSERVATI 5 PHYSICIAN FEDE ON S GROUP CARE/DAY 50 MINUTES FIBRIN 19666 MEHRAN LAURENT DGRADJ 5 [facility] PRODUCTS INC INC D-DIMER QUAL/SEMI TACO THER 67488 MEHRAN LAURENT PROPH/DX 5 [facility] NJX IV INC INC PUSH SINGLE/1S T SBST/DRUG ECG 86364 MEHRAN LAURENT ROUTINE 5 [facility] ECG INC INC W/LEAST 12 LDS TRCG ONLY W/O I&R CREATINE 46696 MEHRAN LAURENT KINASE 5 [facility] TOTAL INC INC COMPREHEN 35725 MEHRAN LAURENT SIVE 5 [facility] METABOLIC INC INC PANEL CREATINE 70800 MEHRAN LAURENT KINASE MB 5 [facility] FRACTION INC INC ONLY LOCM Q9967 MEHRAN HEON 300-399 5 [facility] MG/ML INC INC IODINE CONCENTRA TION PER ML COLLECTIO 16774 MEHRAN LAURENT N VENOUS 5 [facility] [place] [address] MEHRAN LAURENT ANGIOGRAP 5 [facility] HY CHEST INC INC W/CONTRAS T/NONCONT [facility] G0378 MEHRAN MEHRAN OBSERVATI 5 [facility] ON INC INC SERVICE PER HOUR URINE 14680 MEHRAN LAURENT 5 [facility] TEST INC INC VISUAL COLOR CMPRSN METHS RADIOLOGI 94297 MEHRAN LAURENT C 5 [facility] EXAMINATI INC INC ON CHEST SINGLE VIEW FRONTAL IM ADM 01084 JUDD PARKS JOCELIN PRQ ID 5 HEALTH SUBQ/IM MEDICAL NJXS 1 GROUP VACCINE IIV3 VACC 26756 JUDD PARKS JOCELIN 5 HEALTH PRESERVAT MEDICAL [place] FREE GROUP 0.5 ML DOSAGE IM USE THERAPEUT [address] IC 5 [facility] TIC/DX INJECTION SUBQ/IM INJECTION J[address] 5 [facility] DNISOLONE ACETATE 40 MG RADEX 08292 MEHRAN LAURENT SPINE 5 [facility] LUMBOSACR INC INC AL MINIMUM 4 VIEWS CHEMODERV 07205 JAIN TOÑITO ATE 5 [facility] FACIAL/TR MEDICAL IGEM/CERV GROUP [facility] MIGRAINE BOTULINUM J0585 JAIN TOÑITO TOXIN 5 [facility] TYPE A MEDICAL PER UNIT GROUP INJECTION J1885 JAIN MORRIN 5 [facility] KETOROLAC [facility]ICAL GROUP TROMETHAM INE PER 15 MG INJECTION J3301 JAIN MORRIN 5 [facility] TRIAMCINO MEDICAL LONE GROUP ACETONIDE NOS 10 MG CULTURE 38400 LAB DEVENDRA LAB DEVENDRA BACTERIAL 5 [facility] HOLDINGS HOLDINGS QUANTTATI VE COLONY COUNT URINE CULTURE 26370 LAB DEVENDRA LAB DEVENDRA BACTERIAL 5 [facility] HOLDINGS HOLDINGS QUANTTATI VE COLONY COUNT URINE CULTURE 22100 LAB DEVENDRA LAB DEVENDRA BCT 5 [facility] ISOL&PRSM HOLDINGS HOLDINGS PTV ID ISOLATE EA URINE CUL BACT 09993 LAB DEVENDRA LAB DEVENDRA AEROBIC 5 [facility] ADDL HOLDINGS HOLDINGS METHS DEFINITIV E EA ISOL SUSCEPTIB 71592 LAB DEVENDRA LAB DEVENDRA LTY STDY 5 [facility] ANTIMICRB HOLDINGS HOLDINGS IAL MICRO/AGA R DILUTJ INJECTION J1885 JUDD PARKS JOCELIN 5 [facility]ALTH [facility] GROUP TROMETHAM INE PER 15 MG 3D 09970 [place] [facility] RENDERING 5 MEDICAL JANET W/INTERP IMAGING & ASS POSTPROCE SS SUPERVISI ON MRI 38501 [place] [facility] SPINAL 5 MEDICAL JANET CANAL IMAGING LUMBAR ASS W/O CONTRAST MATERIAL OPHTH 49299 [facility] 5 MEDICAL CLA XM&EVAL SERV INTERMEDI FOUNDATIO ATE ESTAB N PT BASIC 90005 [facility] METABOLIC [address] [facility] CALCIUM TOTAL THROMBOPL 92631 [facility] ASTIN [address] [facility] PARTIAL PLASMA/WH OLE BLOOD RADIOLOGI 25915 [facility] 5 Y Y EXAMINAMARY IMOGENE [facility] [place] [address] [facility] TROPONIN 5 [facility] QUANTITAT HOSP HOSP [place] BLOOD 32302 [facility] COUNT [address] [facility] AUTOMATED INJECTION J2550 [facility] 5 Y Y [facility] INE HCL UP TO 50 MG GROUND A0425 [facility] MILEAGE 5 AMBULANCE AMBULANCE PER SERV CREDIT PRODUCT ANALYST SERV CREDIT PRODUCT ANALYST STATUTE R R MILE ECG 73822 CAROLE FLORENTIN SUSAN ROUTINE 5 MEDICAL ECG SERV W/LEAST FOUNDATIO 12 LDS N I&R ONLY THER 19703 [facility] PROPH/DX 5 Y Y NJX [facility] PUSH SINGLE/1S T SBST/DRUG PROTHROMB 46795 [facility] UNIVERSIT IN TIME 5 Y Y HOSPITAL HOSPITAL ECG 71241 [facility] ROUTINE 5 [facility] ECG HOSP HOSP W/LEAST 12 LDS TRCG ONLY W/O I&[place] [address] [facility] LIPASE 5 [facility] H[facility]P FIBRIN 99696 [facility] DGRADJ 5 [facility] PRODUCTS [facility]OSP HOSP D-DIMER QUANTITAT [place] PROTHROMB 57378 [facility] IN TIME 5 [facility]P HOSP ECG 28647 [facility] ROUTINE 5 [facility] ECG HOSP HOSP W/LEAST 12 LDS TRCG ONLY W/O I&R CRITICAL 80398 [facility] PENCE COR CARE 5 EMERGENCY ILL/INJUR PHYS PSC ED PATIENT INIT 30-74 [place] NFS 43729 [facility] THERAPY 5 [facility] PROPHYLAX HOSP HOSP IS/DX CONCURREN T NFS RADIOLOGI 89581 [facility] BRIGHT C 5 RADIOLOGY III JAM EXAMINATI ASSOC ON CHEST SINGLE VIEW FRONTAL GROUND A0425 [facility] MILEAGE 5 AMBULANCE AMBULANCE PER SERVICE SERVICE STATUTE MILE COLLECTIO 31395 [facility] N VENOUS 5 [facility] BLOOD [facility]OSP HOSP VENIPUNCT URE COMPREHEN 31380 [facility] SIVE 5 [facility] [place] [address] [facility] AMYLASE 5 [facility] HOSP NONINVASI 52783 [facility] VE 5 [facility] EAR/PULSE HOSP HOSP OXIMETRY MULTIPLE DETER INJECTION J2550 [facility] 5 [facility] PROMETHAZ HOSP HOSP INE HCL UP TO 50 [place] [address] [facility] INFUSION 5 [facility] THERAPY/P HOSP HOSP ROPHYLAXI S /DX 1ST TO 1 HR THERAPEUT 30120 [facility] IC 5 [facility] INJECTION HOSP HOSP IV PUSH EACH NEW DRUG NATRIURET 31517 [facility] IC 5 [facility] [place] [address] [facility] TROPONIN 5 [facility] QUANTITAT [facility] HOSP [place] BLOOD 45432 [facility] COUNT 5 [facility] COMPLETE [facility] HOSP AUTO&AUTO DIFRNTL WBC INJECTION J2270 [facility] MORPHINE 5 [facility] SULFATE H[facility] HOSP UP TO 10 [place] [address] [facility] INFUSION 5 [facility] THERAPY [facility] HOSP PROPHYLAX IS/DX EA HOUR THER 21433 [facility] PROPH/DX 5 [facility] NJX EA HOSP HOSP SEQL IV PUSH SBST/DRUG FAC THROMBOPL 95617 [facility] ASTIN 5 [facility] TIME HOSP HOSP PARTIAL PLASMA/WH OLE BLOOD AMB A0427 [facility] SERVICE 5 AMBULANCE AMBULANCE ALS SERVICE SERVICE EMERGENCY TRANSPORT LEVEL 1 INJECTION J1885 JUDD PARKS JOCELIN 5 [facility] KETOROLAC MEDICAL GROUP TROMETHAM INE PER 15 MG THERAPEUT 70457 JUDD PARKS JOCELIN IC 5 [facility] PROPHYLAC MEDICAL TIC/DX GROUP INJECTION SUBQ/IM OPHTH 06985 CAROLE RODRIGUEZ [facility] 5 MEDICAL MEGAN XM&EVAL SERV COMPRHNSV FOUNDATIO ESTAB PT N 1/> DETERMINA 39479 CAROLE MICHAEL TION 5 MEDICAL MEGAN REFRACTIV SERV E STATE FOUNDATIO N CHEMODERV 79759 JAIN TOÑITO ATE 5 [facility] FACIAL/TR MEDICAL IGEM/CERV GROUP [facility] MIGRAINE DIAGNOSTI G0206 [place] ALYCE 5 MEDICAL JANET MAMMOGRAP IMAGING HY INCL ASS CAD WHEN PERF; [place] [address] [facility], PICKLESIM SURG 5 [facility] PATHOLOGY GROSS&[place] [address] MEHRAN MEHRAN INFUSION 5 [facility] THERAPY INC [place] [address] MEHRAN MEHRAN INFUSION 5 [facility] THERAPY/P INC INC ROPHYLAXI S /DX 1ST TO 1 HR EGD 35104 [place] [facility] ANT TRANSORAL 5 MEDICAL BIOPSY SERV SINGLE/MU FOUNDATIO LTIPLE N CUL 72015 MEHRAN LAURENT PRSMPTV 5 [facility] PTHGNC INC INC ORGANISMS SCR DNS CHART SPECIAL 04042 [facility], PICKLESIM STAIN 5 LLC ER JR YEE GROUP 1 MICROORGA NISMS I&R 25 54384 MEHRAN LAURENT HYDROXY 5 [facility] INCLUDES INC INC FRACTIONS IF PERFORMED BLOOD 11447 MEHRAN LAURENT COUNT 5 [facility] COMPLETE INC INC AUTO&AUTO DIFRNTL WBC COLLECTIO 69467 MEHRAN LAURENT N VENOUS 5 [facility] BLOOD INC INC VENIPUNCT URE COMPREHEN 05991 MEHRAN LAURENT SIVE 5 [facility] [address] MEHRAN LAURENT THYROID 5 [facility] STIMULATI INC INC NG HORMONE TSH CHEMODERV 43917 JAIN TOÑITO ATE 5 [facility] FACIAL/TR MEDICAL IGEM/CERV GROUP [facility] MIGRAINE RADIOLOGI 10632 MEHRAN LAURENT C 4 [facility] EXAMINATI INC INC ON CHEST SINGLE VIEW FRONTAL ECG 18748 MEHRAN DENT ROUTINE 4 [facility] HOSPITAL W/LEAST P 12 LDS I&[place] [address] MEHRAN LAURENT TROPONIN 4 [facility] QUANTITAT INC INC [place] URNLS DIP 49896 MEHRAN LAURENT 4 [facility] STICK/TAB INC INC LET REAGENT AUTO MICROSCOP Y BLOOD 11366 MEHRAN LAURENT COUNT 4 [facility] COMPLETE INC INC AUTO&AUTO DIFRNTL WBC CREATINE 94901 MEHRAN LAURENT KINASE 4 [facility] TOTAL INC INC ECG 10220 MEHRAN LAURENT ROUTINE 4 [facility] ECG INC INC W/LEAST 12 LDS TRCG ONLY W/O I&R COMPREHEN 43417 MEHRAN LAURENT SIVE 4 [facility] METABOLIC INC INC PANEL CREATINE 90119 MEHARN LAURENT KINASE MB 4 [facility] FRACTION INC INC ONLY US BREAST 76147 MEHRAN LAURENT REAL 4 [facility] TIME INC INC W/IMAGE DOCUMENTA TION DIAGNOSTI G0206 MEHRAN LAURENT C 4 [facility] MAMMOGRAP INC INC HY INCL CAD WHEN PERF; UNI SWALLOWIN 43050 AMARILIS Montemayor. Magdiel FUNCJ 4 RADIOLOGY W/CINERAD ASSOC IOGRAPY/V IDRADIOG [facility] 68314 MEHRAN LAURENT AIDED 4 [facility] DETECTION INC INC SCREENING MAMMOGRAP HY SCREENING G0202 MEHRAN LAURENT 4 [facility] MAMMOGRAP INC INC HY JOSELIN INCL CAD WHEN PERFORMD GASTRIC 91046 MEHRAN LAURENT EMPTYING 4 [facility] IMAGING INC INC STUDY TECHNETIU A9541 MEHRAN Amor TC-99M 4 [facility] SULFUR INC INC COLLOID DX UP TO 20 MCI LARYNGOSC 85512 [facility] VJ OPY 4 PHYSICIAN FRA FLEXIBLE S GROUP DIAGNOSTI C INJECTION 14336 JAIN TOÑITO 4 NEUROLOGY [facility] SINGLE/ML CENTER T TRIGGER [place] POINT 3/> MUSCLES INJECTION 42384 JAIN TOÑITO 4 [facility]UROLOGY [facility] ANESTHETI CENTER C AGENT [facility] NRV INJECTION J1030 JAIN TOÑITO 4 NEUROLOGY [facility] METHYLPRE CENTER DNISOLONE [place] ACETATE [address] [place] [address] MEHRAN LAURENT HPYLORI 4 [facility] INC INC SPECIAL 35862 [facility], GARCIA STAIN 4 LLC MAX GROUP 1 MICROORGA NISMS I&[place] [address] [facility], GARCIA SURG 4 [facility] MAX PATHOLOGY GROSS&FEDE ROSCOPIC EXAM EGD 92871 [facility] SUJATHA SHAH TRANSORAL 4 PHYSICIAN MILY BIOPSY S GROUP SINGLE/MU LTIPLE INJECTION J1100 JAIN TOÑITO 4 NEUROLOGY [facility] DEXAMETHO CENTER SONE [place] SODIUM PHOSPHATE 1 MG ARTHROCEN 87622 JAIN TOÑITO TESIS 4 NEUROLOGY [facility] ASPIR&/IN CENTER J MAJOR KORINA JT/BUR[place] [address] [facility]HR[facility] LAUR[facility] TRANSVAGI 4 [facility] NAL INC INC 25 07467 LABORATOR LABORATOR HYDROXY 4 Y Y INCLUDES CORPORATI CORPORATI FRACTIONS [place] [address] LABORATOR LABORATOR FERRITIN 4 Y Y CORPORATI [place] [address] LABORATOR LABORATOR IRON 4 Y Y CORPORATI CORPORATI ON OF AM ON OF AM LIPID 51403 LABORATOR LABORATOR PANEL 4 Y Y CORPORATI CORPORATI ON OF AM ON OF AM GENERAL 84207 LABORATOR LABORATOR HEALTH 4 Y Y PANEL CORPORATI CORPORATI ON OF AM ON OF AM CYTP 12034 LABORATOR LABORATOR CERV/VAG 4 Y DEVENDRA OF Y DEVENDRA OF AUTO THIN [facility] PREP MNL SCREEN INJECTION J3301 JAIN CALLUM [address] [place] [address] [facility] ACETONIDE NOS 10 MG THERAPEUT 53645 JAIN CALLUM IC 4 [facility] PROPHYLAC MEDICAL TIC/DX GROUP INJECTION SUBQ/IM TENS E0720 EMPI INC EMPI INC DEVICE 4 TWO LEAD LOCALIZED STIMULATI ON TENS E0730 EMPI INC EMPI INC DEVICE 4 4/MORE LEADS MULTI NERVE STIMULATI ON CULTURE 57772 LAB [facility] LAB DEVENDRA BACTERIAL 4 [facility] HOLDINGS [place] [address] [facility] THYROID 4 [facility] STIMULATI HOLD[facility] [place] [address] [facility] LAB DEVENDRA FREE 4 [facility] [place] [address] LAB [facility] LAB DEVENDRA IRON 4 [facility] HOLDINGS HOLDINGS 25 50791 LAB [facility] LAB DEVENDRA HYDROXY 4 MANISH MANISH INCLUDES HOLDINGS HOLDINGS FRACTIONS IF PERFORMED CYANOCOBA 50156 LAB [facility] LAB DEVENDRA DAVID 4 MANISH MANISH VITAMIN HOLDINGS HOLDINGS B-12 HEMOGLOBI 43705 LAB DEVENDR[facility] LAB DEVENDRA N 4 MANISH MANISH GLYCOSYLA HOLDINGS [place] [address] LAB DEVENDR[facility] LAB DEVENDRA TRIIODOTH 4 MANISH MANISH YRONINE HOLDINGS HOLDINGS T3 FREE THERAPEUT 93932 CALLUM NOLEN IC 4 WHI WHI PROPHYLAC TIC/DX INJECTION SUBQ/IM INJECTION J3301 CALLUM VILLARREALIAM 4 WHI WHI TRIAMCINO LONE ACETONIDE NOS 10 MG INJ J0702 FAYE MCKINNEY BETAMETHA 4 MAX MAX SONE ACETATE & PHOSPHATE 3 MG PHYSICAL 92926 [facility] TH[facility]AP[facility] 4 JAIN JAIN EVALUATIO HOSP HOSP N TENS E0730 EMPI INC EMPI INC DEVICE 4 4/MORE LEADS MULTI NERVE STIMULATI ON THERAPEUT 35577 CROSSFIEL CROSSFIEL IC PX 1/> 4 D KOLBY D KOLBY AREAS EACH 15 MIN EXERCISES MANUAL 39089 CROSSFIEL CROSSFIEL THERAPY 4 D KOLBY D KOLBY TQS 1/> REGIONS EACH 15 MINUTES THERAPEUT 93681 CROSSFIEL CROSSFIEL IC PX 1/> 4 D KOLBY D KOLBY AREAS EACH 15 MIN EXERCISES MANUAL 67521 CROSSFIEL CROSSFIEL THERAPY 4 D KOLBY D KOLBY TQS 1/> REGIONS EACH 15 MINUTES MANUAL 28576 CROSSFIEL CROSSFIEL THERAPY 4 D KOLBY D KOLBY TQS 1/> REGIONS EACH 15 MINUTES THERAPEUT 12808 CROSSFIEL CROSSFIEL IC PX 1/> 4 D KOLBY D KOLBY AREAS EACH 15 MIN EXERCISES MANUAL 37646 CROSSFIEL CROSSFIEL THERAPY 4 D KOLBY D KOLBY TQS 1/> REGIONS EACH 15 MINUTES MANUAL 05263 CROSSFIEL CROSSFIEL THERAPY 4 D KOLBY D KOLBY TQS 1/> REGIONS EACH 15 MINUTES MANUAL 11273 CROSSFIEL CROSSFIEL THERAPY 4 D KOLBY D KOLBY TQS 1/> REGIONS EACH 15 MINUTES MANUAL 25479 CROSSFIEL CROSSFIEL THERAPY 4 D KOLBY D KOLBY TQS 1/> REGIONS EACH 15 MINUTES PHYSICAL 95132 PROFESSIO CROSSFIEL THERAPY 4 NAL REHAB D KOLBY EVALUATIO ASSOC N PSC DRUG SCR G0434 MARII HAM MARII HAM NOT 4 CHROMATOG RAPHIC; ANY NUMBER [place] E[place] [address] [facility] LAURENT SPINAL 4 [facility] CANAL INC INC CERVICAL W/O CONTRAST MATRL 3D 16465 MEHRAN LAURENT RENDERING 4 [facility] W/INTERP INC INC & POSTPROCE SS SUPERVISI ON MRI 33255 MEHRAN LAURENT SPINAL 4 [facility] CANAL INC INC LUMBAR W/[place] [address] MEHRAN LAURENT HYDROXYIN 4 [facility] DOLACETIC [place] ACID 5-[place] [address] MEHRAN LAURENT VANILLYLM 4 [facility] ANDELIC INC INC ACID URINE METANEPHR 93849 MEHRAN LAURENT PHIL [facility] [place] [address] MEHRAN LAURENT ALDOSTERO 4 [place] [address] MEHRAN LAURENT TRANSVAGI 4 [facility] NAL [facility] INC INJ J0702 FAYE MCKINNEY BETAMETHA 4 MAX MAX SONE ACETATE & PHOSPHATE 3 MG THERAPEUT 48595 CALLUM NOLEN IC 4 WHI WHI PROPHYLAC TIC/DX INJECTION SUBQ/IM INJECTION J3301 CALLUM CALLUM 4 WHI WHI TRIAMCINO LONE ACETONIDE NOS 10 MG COLLECTIO 98533 [facility] N VENOUS 3 [facility] BLOOD [facility] VENIPUNCT URE COMPREHEN 55721 [facility] SIVE 3 [facility] [place] [address] [facility] AMYLASE 3 [place] [address] [facility] LIPASE 3 [facility] PROTHROMB 81387 [facility] IN TIME 3 [facility] [place] [facility] [place] ECG 59649 [facility] ROUTINE 3 [facility] ECG [facility]OS[facility] W/LEAST 12 LDS TRCG ONLY W/O I&R THROMBOPL 72172 [facility] ASTIN 3 [facility] [place] [facility] REG BOARD PARTIAL PLASMA/WH OLE BLOOD RADIOLOGI 83074 [facility] C 3 [facility] EXAMINATI [facility] HOSP ON CHEST SINGLE VIEW FRONTAL NATRIURET 62278 [facility] IC 3 [place] [address] [facility] C[facility] TROPONIN 3 [facility] QUANTITAT [facility] HOS[facility] [place] BLOOD 96623 [facility] COUNT 3 [facility] COMPLETE [facility] HOSP AUTO&[place] [address] [facility] ANGIOGRAP 3 RADIOLOGY RADIOLOGY HY CHEST ASSOC ASSOC W/CONTRAS T/NONCONT RAST GROUND A0425 [facility] Albina-DELMY ELIZONDO PER CO EMS CO EMS STATUTE MILE [facility] A0427 [facility] SERVICE 3 MIKHAIL ELIZONDO ALS CO EMS CO EMS EMERGENCY TRANSPORT LEVEL 1 Encounters Encounter Start End Date Code Location Performer Type Date OFFICE 79898 [facility] OUTPATIEN 7 7 [facility] T VISIT INC 10 MINUTES OFFICE 91170 LUDMILA KEYS OUTPATIEN 7 7 T VISIT 15 MINUTES HOSPITAL [facility] - 7 7 [facility] - [facility] 7 [facility] - 7 7 [facility] OUTPATIEN INC T OFFICE 23096 JERILYNChari MICHAEL OUTPATIEN 7 7 ORTHOPEDI T NEW 45 C MINUTES ASSOCIAT OFFICE 61473 ALEX JOHNSON OUTPATIEN 7 7 T VISIT 15 MINUTES OFFICE 68161 JAIN CLEVE OUTPATIEN 7 7 HEALTH T VISIT MEDICAL 25 GROUP MINUTES OFFICE 46348 [facility] CONSULTAT 7 7 N ION NEUROLOGY NEW/ESTAB PATIENT 60 MIN [facility] - 7 7 N OUTPATIEN COMMUNTIY T HOSPITA OFFICE 37849 JAIN CLEVE OUTPATIEN 7 7 HEALTH T VISIT MEDICAL 25 GROUP MINUTES OFFICE 50403 MEHRAN OUTPATIEN 7 7 [facility] T [facility]IT INC 10 MINUTES HOSPITAL MEHRAN - 7 7 [facility] OUTPATIEN INC T OFFICE 89476 MEHRAN OUTPATIEN 7 7 [facility] T VISIT INC 10 MINUTES HOSPITAL ME[facility] - 7 7 [facility] OUTPATIEN INC T OFFICE 22651 [facility] SUJATHA OUTPATIEN 7 7 PHYSICIAN T VISIT S GROUP 15 MINUTES OFFICE 41965 CAROLE MOLINAE OUTPATIEN 7 7 MEDICAL HERRERA T VISIT SERV 25 FOUNDATIO MINUTES [facility] MEHRAN - 7 7 [facility] OUTPATIEN INC T [facility] MEHRAN - 7 7 [facility] OUTPATIEN INC T OFFICE 08978 [facility] SUJATHA SHAH OUTPATIEN 7 7 PHYSICIAN T VISIT S GROUP 15 MINUTES HOSPITAL MEHRAN - 7 7 [facility] OUTPATIEN INC T OFFICE 03778 PAVAN MUELLER OUTMICHAEL 7 7 MD ERVIN, T VISIT PSC 10 MINUTES HOSPITAL MEHRAN - 7 7 [facility] OUTPATIEN INC [facility] - 7 7 [facility] OUTPATIEN INC T EMERGENCY 76011 MARAL GARCIA DEPT 7 7 PHYSICIAN VISIT S, [facility] HIGH SEVERITY& THREAT FUNJ EMERGENCY 29043 MEHRAN 7 7 [facility] DEPARTMEN INC T VISIT HIGH/URGE NT SEVERITY HOSPITAL [facility] - 7 7 [facility] OUTPATIEN INC T OFFICE 84865 [facility] ANDREW TRIPLETT 7 7 PHYSICIAN OGHADDAM T VISIT S GROUP 15 MINUTES HOSPITAL MEHRAN - 6 6 [facility] OUTPATIEN INC T [facility] MEHRAN - 6 6 [facility] OUTPATIEN INC T OFFICE 05621 PAVAN MUELLER OUTPATIEN 6 6 MD ERVIN, T VISIT PSC 10 MINUTES OFFICE 81342 CAROLE TOLENTINO CONSULTAT 6 6 MEDICAL ION SERV NEW/ESTAB FOUNDATIO PATIENT N 30 MIN HOSPITAL ME[facility] - 6 6 [facility] OUTPATIEN INC T HOSPITAL MEHR[facility] - 6 6 [facility] OUTPATIEN INC T OFFICE 85523 JAINDanay CHIU OUTPATIEN 6 6 HEALTH T VISIT MEDICAL 15 GROUP MINUTES HOSPITAL MEHRAN - 6 6 [facility] OUTPATIEN INC T OFFICE 64519 PAVAN PINO OUTPATIEN 6 6 MD ERVIN, T VISIT PSC 15 MINUTES OFFICE 86707 MEHRAN OUTPATIEN 6 6 [facility] T VISIT INC 10 MINUTES HOSPITAL MEHRAN - 6 6 [facility] OUTPATIEN INC T OFFICE 90676 [facility] SAMIA KIM OUTPATIEN 6 6 NURSE T VISIT PRACTITIO 15 NER GR MINUTES EMERGENCY 48005 MEHRAN 6 6 [facility] DEPARTMEN INC T VISIT LOW/MODER SEVERITY HOSPITAL [facility] - 6 6 [facility] OUTPATIEN INC [facility] [place] - 6 6 N OUTPATIEN COMMUNTIY T HOSPITA OFFICE 59784 MEHRAN OUTPATIEN 6 6 [facility] T VISIT INC 10 MINUTES HOSPITAL MEHRAN - 6 6 [facility] OUTPATIEN INC T OFFICE 49249 [facility] ANDREW OUTPATIEN 6 6 PHYSICIAN LETITIAAM T VISIT S GROUP 15 MINUTES OFFICE 18991 [facility] SAMIA KIM OUTPATIEN 6 6 NURSE T NEW 30 PRACTITIO MINUTES NER GR OFFICE 38877 JAIN MORRIN OUTPATIEN 6 6 HEALTH T VISIT MEDICAL 15 GROUP MINUTES OFFICE 84642 PAVAN MONTANO OUTPATIEN 6 6 MD ERVIN, T VISIT PSC 15 MINUTES HOSPITAL MEHRAN - 6 6 [facility] OUTPATIEN INC T OFFICE 15536 MEHRAN OUTPATIEN 6 6 [facility] T VISIT INC 10 MINUTES HOSPITAL MEHRAN - 6 6 [facility] OUTPATIEN INC T OFFICE 02803 JOSE GO TRA OUTPATIEN 6 6 T VISIT ORTHOPAED 15 ICS PSC MINUTES OFFICE 44079 JAIN MORRIN OUTPATIEN 6 6 HEALTH T VISIT MEDICAL 15 GROUP MINUTES [facility] MEHRAN - 6 6 [facility] OUTPATIEN INC T OFFICE 20924 JOSE GO OUTPATIEN 6 6 T VISIT ORTHOPAED 15 ICS PSC MINUTES OFFICE 41794 PAVAN MONTANO OUTPATIEN 6 6 MD ERVIN, T VISIT PSC 15 MINUTES OFFICE 37089 MEHRAN OUTPATIEN 6 6 [facility] T VISIT INC 10 MINUTES HOSPITAL MEHRAN - 6 6 [facility] OUTPATIEN INC T OFFICE 04927 MEHRAN DE LA O OUTPATIEN 6 6 [facility] 15 MINUTES OFFICE 96929 CAROLE ESCAMILLA OUTPATIEN 6 6 MEDICAL PAD T VISIT SERV 25 FOUNDATIO MINUTES [facility] MEHRAN - 6 6 [facility] OUTPATIEN INC T OFFICE 61124 MEHRAN OUTPATIEN 6 6 [facility] T VISIT INC 10 MINUTES HOSPITAL YAZIDISM - 6 6 HOSPITAL OUTPATIEN & [facility] OFFICE 13310 PAVAN MONTANO OUTPATIEN 6 6 MD ERVIN, T VISIT PSC 15 MINUTES OFFICE 33454 SHU JOSE DE JESUS OUTPATIEN 6 6 Medicine HOLLY T NEW 45 MINUTES OFFICE 29136 MEHRAN JAYLYN OUTPATIEN 6 6 [facility] 15 MINUTES OFFICE 74710 JAIN LIZETTRIN OUTPATIEN 6 6 HEALTH T VISIT MEDICAL 15 GROUP MINUTES OFFICE 99975 JAIN LIZETTRIN OUTPATIEN 6 6 HEALTH T VISIT MEDICAL 25 GROUP MINUTES OFFICE 73747 CAROLE JOHNSON OUTPATIEN 6 6 MEDICAL CLA T VISIT SERV 15 FOUNDATIO MINUTES N OFFICE 51586 [facility] MYRIAM-M OUTPATIEN 6 6 PHYSICIAN TAWANNA T NEW 45 S GROUP JAL MINUTES HOSPITAL MEHRAN - 6 6 [facility] OUTPATIEN INC [facility]PITAL MEHRAN - 6 6 [facility] OUTPATIEN INC T OFFICE 68944 PAVAN MONTANO OUTPATIEN 6 6 MD ERVIN, T NEW 30 PSC MINUTES OFFICE 88952 MEHRAN ZACHARY OUTPATIEN 6 6 [facility] 15 MINUTES OFFICE 38262 JAIN LILIA OUTPATIEN 6 6 HEALTH YANY T VISIT MEDICAL 25 GROUP MINUTES HOSPITAL MEHRAN - 6 6 [facility] OUTPATIEN INC T OFFICE 35271 CAROLE RODRIGUEZ OUTPATIEN 6 6 MEDICAL MEGAN T VISIT SERV 15 FOUNDATIO MINUTES N OFFICE 63456 JAINDanay DAHL OUTPATIEN 6 6 HEALTH T VISIT MEDICAL 25 GROUP MINUTES OFFICE [address] OUTPATIEN 6 6 [facility] 15 MINUTES OFFICE [address] OUTPATIEN 6 6 [facility] 15 MINUTES HOSPITAL MEHRAN - 6 6 [facility] OUTPATIEN INC T EMERGENCY 18084 MARAL GARCIA 6 6 PHYSICIAN FOR [facility] T VISIT HIGH/URGE NT SEVERITY OFFICE 48877 MEHRAN SHARMA OUTPATIEN 5 5 [facility] 15 MINUTES EMERGENCY 08727 MARAL GRANT DEPT 5 5 PHYSICIAN U KOLBY VISIT [facility] HIGH SEVERITY& THREAT [facility] HOSPITAL MEHRAN - 5 5 [facility] OUTPATIEN INC T OFFICE 58399 JAIN LIZETTRIN OUTPATIEN 5 5 HEALTH YANY T VISIT MEDICAL 15 GROUP MINUTES OFFICE 63451 GASTROENT CASE JUS CONSULTAT 5 5 EROLOGY ION AND NEW/ESTAB HEPATOL PATIENT 60 MIN OFFICE [address] OUTPATIEN 5 5 [facility] 15 MINUTES OFFICE 35008 [facility] SUJATHA OUTPATIEN 5 5 PHYSICIAN MILY T VISIT S GROUP 15 MINUTES OFFICE 04491 JAINDanay RODRIGUES OUTPATIEN 5 5 HEALTH YANY T VISIT MEDICAL 25 GROUP MINUTES [facility] MEHRAN - 5 5 [facility] OUTPATIEN INC T OFFICE 19011 CAROLE RODRIGUEZ OUTPATIEN 5 5 MEDICAL MEGAN T VISIT SERV 10 FOUNDATIO MINUTES N OFFICE 18911 JAIN LILIA OUTPATIEN 5 5 HEALTH YANY T VISIT MEDICAL 15 GROUP MINUTES OFFICE 67773 JAINDanay MONREAL OUTPATIEN 5 5 HEALTH T VISIT MEDICAL 25 GROUP MINUTES OFFICE 92851 CAROLE JOHNSON OUTPATIEN 5 5 MEDICAL CLA T VISIT SERV 10 FOUNDATIO MINUTES N OFFICE 07148 JAIN TAYLOR CONSULTAT 5 5 HEALTH OFE ION MEDICAL NEW/ESTAB GROUP PATIENT 40 MIN OFFICE 58276 [place] TEAGAN ANT OUTPATIEN 5 5 MEDICAL T VISIT SERV 25 FOUNDATIO MINUTES N OFFICE 56931 JAIN APPLE OUTPATIEN 5 5 HEALTH ANT T VISIT MEDICAL 15 GROUP MINUTES HOSPITAL MEHRAN - 5 5 [facility] OUTPATIEN INC T OFFICE 80122 [place] HANKS CONSULTAT 5 5 MEDICAL MAX ION SERV NEW/ESTAB FOUNDATIO PATIENT N 60 MIN EMERGENCY 77671 CAROLE CINDY 5 5 MEDICAL SET DEPARTMEN SERV T VISIT FOUNDATIO HIGH/URGE N NT SEVERITY [facility] UNIVERSIT - 5 5 Y OUTPATI HOSPITAL T EMERGENCY 59487 UNIVERSIT DEPT 5 5 Y VISIT HOSPITAL HIGH SEVERITY& THREAT [facility], [facility] EMERGENCY 48379 CENTRAL DEPT 5 5 JAIN VISIT HOSP HIGH SEVERITY& THREAT [facility] CENTRAL - 5 5 JAIN OUTPATIEN HOSP T OFFICE 75913 JAINDanay MONREAL OUTPATIEN 5 5 HEALTH T VISIT MEDICAL 15 GROUP MINUTES OFFICE 00011 JAIN TOÑITO OUTPATIEN 5 5 HEALTH MAURICE T VISIT MEDICAL 15 GROUP MINUTES [facility] MEHRAN - 5 5 [facility]PAT[facility] - 5 5 [facility] OUTPATIEN INC T OFFICE 44646 [place] TEAGAN ANT OUTPATIEN 5 5 MEDICAL T VISIT SERV 25 FOUNDATIO MINUTES [facility] MEHRAN - 5 5 [facility] OUTPATIEN INC T OFFICE 07987 [place] TEAGAN ANT OUTPATIEN 5 5 MEDICAL T NEW 45 SERV MINUTES FOUNDATIO N OFFICE 58173 JAIN TOÑITO OUTPATIEN 5 5 HEALTH MAURICE T VISIT MEDICAL 15 GROUP MINUTES OFFICE 43781 [facility] MONGIARDO OUTPATIEN 4 4 PHYSICIAN FRA T VISIT S GROUP 15 MINUTES EMERGENCY 34864 MEHRAN 4 4 [facility] DEPARTMEN INC T VISIT MODERATE SEVERITY HOSPITAL MEHRAN - 4 4 [facility] OUTPATIEN INC T OFFICE 06786 [facility] ALLRAN JR OUTPATIEN 4 4 PHYSICIAN MILY T VISIT S GROUP 15 MINUTES HOSPITAL MEHRAN - 4 4 [facility] OUTPATIEN INC T OFFICE 35413 JAIN TOÑITO OUTPATIEN 4 4 NEUROLOGY [facility] T VISIT CENTER 25 [facility] H[facility]PITAL CENTRAL - 4 4 JAIN OUTPATIEN HOSP [facility] ME[facility] - 4 4 [facility] OUTPATIEN INC T OFFICE 57160 SIMON CHIU OUTPATIEN 4 4 ANT T VISIT CARDIOLOG 15 Y AT [facility] MEHRAN - 4 4 [facility] OUTPATIEN INC T OFFICE 82925 FAYE MCKINNEY OUTPATIEN 4 4 MAX MAX T VISIT 15 MINUTES OFFICE 48497 [facility] VJ OUTPATIEN 4 4 PHYSICIAN FRA T NEW 30 S GROUP MINUTES OFFICE 59303 [facility] SUJATHA SHAH OUTPATIEN 4 4 PHYSICIAN MILY T VISIT S GROUP 15 MINUTES HOSPITAL MEHRAN - 4 4 [facility] OUTPATIEN INC T OFFICE 81961 JAIN TOÑITO OUTPATIEN 4 4 NEUROLOGY [facility]ICE T VISIT CENTER 25 [place] MINUTES OFFICE 83696 SIMON [place] OUTPATIEN 4 4 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 CAROL ANN T NEW 30 ASSOCIATE MINUTES S, OFFICE 27967 [facility] SUJATHA SHAH OUTPATIEN 4 4 PHYSICIAN MILY T NEW 30 S GROUP MINUTES HOSPITAL MEHRAN - 4 4 [facility] OUTPATIEN INC T OFFICE 80732 JAIN TOÑITO OUTPATIEN 4 4 NEUROLOGY MAURICE T VISIT CENTER 25 [place] MINUTES PERIODIC 14575 CALLUM LEONARDM PREVENTIV 4 4 WHI WHI E MED EST PATIENT 40-64YRS OFFICE 11563 JAIN CALLUM OUTPATIEN 4 4 HEALTH WHI T VISIT MEDICAL 15 GROUP MINUTES OFFICE 06940 CALLUM CALLUM OUTPATIEN 4 4 WHI WHI T VISIT 25 MINUTES OFFICE 91346 APPLE CHIU OUTPATIEN 4 4 ANT ANT T VISIT 15 MINUTES OFFICE 30365 FAYE MCKINNEY OUTPATIEN 4 4 MAX MAX T VISIT 15 MINUTES HOSPITAL CENTRAL - 4 4 JAIN OUTPATIEN HOSP T OFFICE 14687 VASCELLO VASCELLO OUTPATIEN 4 4 GIANNI GIANNI T VISIT 25 MINUTES OFFICE 49536 APPLE CHIU OUTPATIEN 4 4 ANT ANT T VISIT 15 MINUTES OFFICE 44903 MARII HAM MARII HAM OUTPATIEN 4 4 T NEW 45 MINUTES OFFICE 27520 CALLUM CALLUM OUTPATIEN 4 4 WHI WHI T VISIT 15 MINUTES OFFICE 32120 CALLUM CALLUM OUTPATIEN 4 4 WHI WHI T VISIT 25 MINUTES OFFICE 40586 GO TRA GO TRA OUTPATIEN 4 4 T VISIT 15 MINUTES OFFICE 53060 APPLE CHIU OUTPATIEN 4 4 ANT ANT T VISIT 15 MINUTES OFFICE 29038 UNIVERSIT OUTPATIEN 4 4 Y T VISIT 5 HOSPITAL MINUTES HOSPITAL UNIVERSIT - 4 4 Y OUTPATIEN HOSPITAL T HOSPITAL MEHRAN - 4 4 [facility] OUTPATIEN [facility] HOSPITAL MEHRAN - 4 4 [facility] OUTPATI[facility] - 4 4 [facility] OUTPATIEN [facility] OFFICE 87016 GO TRA GO TRA CONSULTAT 4 4 ION NEW/ESTAB PATIENT 60 MIN OFFICE 41877 APPLE CHIU OUTPATIEN 4 4 ANT ANT T VISIT 25 MINUTES OFFICE 94961 ARNOLD FAYE OUTPATIEN 4 4 MAX MAX T NEW 30 MINUTES OFFICE 17905 CALLUM CALLUM OUTPATIEN 4 4 WHI WHI T VISIT 25 MINUTES HOSPITAL KERSHAW - 3 3 JAIN OUTPATIEN HOSP T EMERGENCY 30752 KERSHAW 3 3 JAIN [facility] HOSP T VISIT MODERATE SEVERITY EMERGENCY 12668 KERSHAW FRANCISCA ISBELL DEPT 3 3 EMERGENCY VISIT PHYS PSC HIGH SEVERITY& THREAT FUNCJ
--- OUTSIDE RECORDS SUMMARY | 2017-07-01 19:25 | External Medical Summary Rpt ---
Demographics Preferred Language Jamaican Marital Status Unknown Jewish Affiliation Unknown Race Unknown Ethnic Group Unknown Author Author , MARLA GUTIÉRREZ Address Unknown Phone Immunization Unable to retrieve immunization data due to connection failure with Immunization Registry. Please try again later.
--- OUTSIDE RECORDS SUMMARY | 2017-07-01 19:25 | External Medical Summary Rpt ---
Author Author MARLA Siddiqui, [employer] Address Unknown Phone Unavailable Results Basic metabolic panel in Blood Observa Value Referen Units Interpr Notes Date tion ce etation Range Urea 7 - 18 mg/dL Normal No May 01 nitrogen informati 2016 [Mass/vol on in 12:16 PM ume] in source Serum or data Plasma Calcium 8.5 - mg/dL Normal No May 01 [Mass/vol 10.1 informati 2016 ume] in on in 12:16 PM Serum or source Plasma data Chloride 98 - 107 mmoL/L Normal No May 01 [Moles/vo informati 2016 lume] in on in 12:16 PM Serum or source Plasma data Carbon 21.0 - mmoL/L Normal No May 01 dioxide, 32.0 informati 2017 total on in 12:16 PM [Moles/vo source lume] in data Serum or Plasma Creatinin 0.55 - mg/dL Normal No May 01 e 1.02 informati 2016 [Mass/vol on in 12:16 PM ume] in source Serum or data Plasma Estimated 59- ML/MIN No REFERENCE May 01 informati RANGE: 2017 glomerula on in >60 12:16 PM r source ML/MIN/1. filtratio data 73 SQUARE n rate METERSIf (GF this patient is -A merican, then multiply theresult by 1.210. Glucose 74 - 106 mg/dL Normal No May 01 [Mass/vol informati 2016 ume] in on in 12:16 PM Serum or source Plasma data Potassium 3.5 - 5.1 mmoL/L Normal No May 01 informati 2016 [Moles/vo on in 12:16 PM lume] in source Serum or data Plasma Sodium 136 - 145 mmoL/L Normal No May 01 [Moles/vo informati 2016 lume] in on in 12:16 PM Serum or source Plasma data CBC W Auto Differential panel in Blood Observa Value Referen Units Interpr Notes Date ti ce etation Range Basophils 0 - 0.2 K/MM3 Normal No May 01 informati 2017 [#/volume on in 12:16 PM ] in source Blood by data Automated count Basophils 0.1 - 2.0 % Normal No May 01 /100 inform2016 leukocyte on in 12:16 PM s in source Blood by data Automated count Eosinophi 0.0 - 0.4 K/mm3 Normal No May 01 ls inform2016 [#/volume on in 12:16 PM ] in source Blood by data Automated count Eosinophi 0.1 - % Normal No May 01 ls/100 12.0 inform2016 leukocyte on in 12:16 PM s in source Blood by data Automated count Granulocy 1.8 - 7.8 K/mm3 Normal No May 01 low inform2016 [#/volume on in 12:16 PM ] in source Blood by data Automated count Granulocy 37.0 - % Normal No May 01 low/100 80.0 inform2016 leukocyte on in 12:16 PM s in source Blood by data Automated count Hematocri 37.0 - % Normal No May 01 t [Volume 47.0 ati 2016 on in 12:16 PM Fraction] source of Blood data Hemoglobi 12.2 - g/dL Normal No May 01 n 16.2 inform2016 [Mass/vol on in 12:16 PM ume] in source Blood data Lymphocyt 0.7 - 4.5 K/mm3 Normal No May 01 es 2016 [#/volume on in 12:16 PM ] in source Unspecifi data ed specimen by Automated count Lymphocyt 10 - 50.0 % Normal No May 01 es inform2016 [#/volume on in 12:16 PM ] in source Unspecifi data ed specimen by Automated count Erythrocy 27 - 31.2 pg Normal No May 01 te mean 2016 corpuscul on in 12:16 PM ar source hemoglobi data n [Entitic mass] Erythrocy 31.8 - g/dl Normal No May 01 te mean 35.4 inform2016 corpuscul on in 12:16 PM ar source hemoglobi data n concentra tion [Mass/vol ume] by Automated count Erythrocy 82.2 - fl Normal No May 01 te mean 97.8 inform2016 corpuscul on in 12:16 PM ar volume source [Entitic data volume] by Automated count Monocytes 0.1 - 1.0 K/mm3 Normal No May 012016 [#/volume on in 12:16 PM ] in source Blood by data Automated count Monocytes 1.7 - 9.3 % Normal No May 01 /100 2016 leukocyte on in 12:16 PM s in source Blood by data Automated count Platelet 7.4 - fl Normal No May 01 mean 10.4 2016 volume on in 12:16 PM [Entitic source volume] data in Blood by Automated count Platelets 142 - 424 K/mm3 Normal No May 01 informati 2016 [#/volume on in 12:16 PM ] in source Blood data Erythrocy 4.2 - 5.4 M/mm3 Normal No May 01 low inform2016 [#/volume on in 12:16 PM ] in source Amniotic data fluid Erythrocy 11.5 - % Normal No May 01 te 17.5 informati 2016 distribut on in 12:16 PM ion width source [Entitic data volume] by Automated count Leukocyte 4.8 - K/MM3 Normal No May 01 s 10.8 informati 2016 [#/volume on in 12:16 PM ] in source Blood data
--- OUTSIDE RECORDS SUMMARY | 2017-07-01 19:25 | External Medical Summary Rpt ---
Demographics Preferred Language Dutch Marital Status Unknown Rastafari Affiliation Unknown Race Unknown Ethnic Group Unknown Author Author , MARLA GUTIÉRREZ Address Unknown Phone Immunization Unable to retrieve immunization data due to connection failure with Immunization Registry. Please try again later.
[2017-07-01 19:53] LABS: BUN 12 mg/dL (7-18); GFR (ESTIMATED) 77 ML/MIN (59-)
--- NOTE | 2017-07-01 19:55 | RADIOLOGY REPORT PS360 ---
CT HEAD W/O CONTRAST HISTORY: Altered mental status INTERMITTENT AMS ORDERING PHYSICIAN: Tylor Cotter MD PATIENT AGE: 46 years COMPARISON: 12 23 16 TECHNIQUE: Axial images obtained without contrast. Brain and bone windows reviewed. FINDINGS: No midline shift, mass effect, intracranial hemorrhage, hydrocephalus, or extra-axial fluid collection is evident. The calvarium has an unremarkable appearance. No mastoid effusion. The visualized paranasal sinuses are unremarkable. IMPRESSION: Negative CT head without contrast. No acute finding.
[2017-07-01 20:02] LABS: HEMOGLOBIN 13.8 g/dL (12.2-16.2)
[2017-07-01 20:03] LABS: LYMPH # 3.5 K/mm3 (0.7-4.5); LYMPH % 47.4 % (10-50.0)
--- NOTE | 2017-07-01 20:45 | Emergency Room Report ---
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 N Clinical Suspician of Infection? N Mental Status: 1 - Regular (Normal Baseline) Sepsis Risk:Low Sepsis Risk Have you (or family members/close friends) recently traveled outside the [place]? N If Yes, where/when: Have you had exposure to infectious disease within the past month? N TB? Other? Specify: Source patient, RN notes reviewed, family, old records Exam Limitations no limitations Comment pt with episodes of chest pain described as sharp over the last 3 days with rad to jaw with no sob - no known hx of ht disease - Cardiac Chest Pain Chest pain indicative of cardiac Yes Timing/Duration 1-3 hours, intermittent Severity/Quality moderate, sharp Location central Chest Pain Radiation jaw(s) Activities at Onset light activity Nitro Today/Relief no nitro taken today Aspirin Treatment Today 81 mg x 4, provided by ED Beta enrrique treatment today provided at home, mild relief Cardiac risk factors + family history, HTN controlled Prior Workup/Intervention no prior cardiac workup Timing/Duration this evening Severity moderate ALLERGIES Coded Allergies: niacin (Severe, S-DIFF. BREATHING 05/06/17) Penicillins (Intermediate, I-HIVES 05/06/17) ondansetron (From ZOFRAN ( HYDROCHLORIDE)) (Mild, ABD PAIN 05/06/17) Home Medications Reported Medications Levothyroxine Sodium (Levothyroxine) 0.05 MG PO DAILY Dexlansoprazole (Dexilant) 60 MG PO DAILY Clonidine Hydrochloride (Clonidine 0.2MG Tab) 0.1 MG PO BID NEBIVOLOL HCL (Bystolic) 20 MG PO BID AMLODIPINE BESYLATE (Norvasc) (Unknown Dose) PO DAILY History Medical History General CAD? No Angina: Yes MT: No Hypertension? Yes Hyperlipidemia? No CHF? No DVT? No PE? No COPD? No Asthma? No Anemia? No GERD? Yes Gastric ulcers? No GI Bleed? No Hernia? Yes Thyroid Problems? No Hypothyroidism? Yes CVA? No Seizures? Yes Diabetes? No Insulin Dependent: No Insulin Pump: No Home FSBS? No Renal Insuffiency? No End Stage Renal Disease? No UTI? No Stones? No BPH? No GB Disease: Yes Nephritic Syndrome? No Asplenia? No Hepatitis? No Sickle Cell Disease? No Arthritis? No Migraines? No Cataracts? No Glaucoma? No MRSA? No HIV? No TB? No Anxiety? No Depression? No Cancer? No More? 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 Respiratory denies cough, denies shortness of breath, denies wheezing Cardiovascular see HPI, chest pain, denies palpitations, denies syncope Gastrointestinal denies abdominal pain, denies diarrhea, denies vomiting Genitourinary denies: frequency, hesitancy, hematuria. Musculoskeletal denies back pain, denies joint pain, denies joint swelling, denies neck pain Skin denies rash Psychiatric/Neurological denies headache, denies seizure Physical Exam Vital Signs Vital Signs Date Time Temp Pulse Resp B/P Pulse O2 O2 Flow FiO2 Ox Delivery Rate 07/01 2011 72 18 128/84 98 07/01 1815 98.3 63 18 123/74 98 - WBC >12,000 or <4,000 or 10% bands? 2 or more SIRS Criteria Met? B/P:128/84 MAP:90 Creatinine >2.0? UA output<0.5ml/kg/hr for 2 hrs? Platelet count >100,000? Lactate >2.0mmol/1? INR >1.2 or PTT > than 60 sec? Evidence of Organ Dysfunction? Provider documented clinical suspician of infection? N Sepsis Criteria Count: 0 Sepsis Risk: Low Sepsis Risk General Appearance no apparent distress Eye Exam - bilateral eye PERRL, bilateral eye EOMI Ear, Nose, Throat normal ENT inspection Neck supple Respiratory Status No: respiratory distress. Lung Sounds bilateral: lungs clear. 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 No Results/Orders Laboratory Tests 07/01/171902: Sodium 139, Potassium 3.2 L, Chloride 104, Carbon Dioxide 27, BUN 12, Creatinine 0.8, Estimated Creat Clear 126, Estimated GFR (MDRD) 77, Glucose 79, Calcium 8.8, Total Bilirubin 0.3, AST 19, ALT 24, Alkaline Phosphatase 59, Creatine Kinase 99, CK-MB (CK-2) Rel Index 0.6, CK and CKMB Interp 0.6, Troponin I < 0.02, Total Protein 7.4, Albumin 4.0, Globulin 3.4 H, Albumin/Globulin Ratio 1.2, WBC 7.3, RBC 4.76, Hgb 13.8, Hct 43.3, MCV 90.9, RDW 14.8, Plt Count 161, Gran % 46.3, Gran # 3.4, Lymphocytes % 47.4, Monocytes % 6.3, Lymphocytes # 3.5, Monocytes # 0.5, PUBS MCHC 31.9, MCH 29.0 Current Medication Orders Sig/Yoko Start time Last Medication Dose Route Stop Time Status Admin Nitroglycerin 1 IN ONCE ONE 07/01 2115 DC 07/01 TP 07/01 Nitroglycerin 0 .STK-MED ONE 07/01 2107 DC .ROUTE Sodium Chloride 10 ML PRN PRN 07/01 184 AC IV 07/02 1838 Aspirin 0 .STK-MED ONE 07/01 1832 DC .ROUTE Aspirin 324 MG ONCE ONE 07/01 183 DC 07/01 PO 07/01 1831 183 Orders Procedure Date/time Status DIET-NOTHING BY MOUTH 07/02 B Active Decision to admit 07/01 2119 Active TROPONIN I 07/[address] HEAD REQ 08/16 1905 Complete ELECTROCARDIOGRAM REQUEST 07/01 1838 Active IV SALINE LOCK 07/01 1838 Active CBC WITH AUTO DIFF 07/01 1838 Complete CARDIAC ENZYMES 07/01 1838 Complete CHEM 12 PROFILE 07/01 1838 Complete CM/EKG CM/EKG 1 Monitor Rhythm Normal Sinus Rhythm EKG compared w/(date of old), ST elevation CM/EKG 2 Monitor Rhythm Normal Sinus Rhythm EKG ST elevation CM/EKG [address] elevation CM/EKG 4 Monitor Rhythm Normal Sinus Rhythm EKG ST elevation XRAY/CT/US XRAY/CT/US CT head CT interpretation by discussed w/radiologist Time results known: 2124 CT Results normal/NAD Departure Departure Time of Disposition 2124 Disposition Still a Patient Clinical Impression Primary Impression: Chest pain Qualifiers: Chest pain type: precordial pain Qualified Code: R07.2 - Precordial pain Condition STABLE Referrals DEYSI POON (Family) discussed with dr saldana and dr cortez ED Critical Care Critical Care No at 2126
--- OUTSIDE RECORDS SUMMARY | 2017-07-01 21:36 | External Medical Summary Rpt ---
Author Author , MARLA GUTIÉRREZ Address Unknown Phone [email or web address] Team Providers Care Plastic Finisher Name Role Phone ALLRAN JR, ALLRAN JR Unavailable Unavailable ALLRAN JR MILY, ALLRAN Unavailable Unavailable JR MILY PAVAN MUELLER MD, PSC, Unavailable Unavailable PAVAN MUELLER MD, PSC ARNMALLY MAX, ARNOLD Unavailable Unavailable MAX ARNOLD MAX, ARNOLD Unavailable Unavailable MAX [facility] Unavailable Unavailable MEDICAL GROUP, [facility] MEDICAL [facility] Unavailable Unavailable [facility]ENTER [place], [facility] BEINEKE, BEINEKE Unavailable Unavailable JIMENEZ TER, JIMENEZ TER Unavailable Unavailable BESSON OFE, BESSON Unavailable Unavailable OFE [facility] Unavailable Unavailable [facility]EDICS PSC, [facility] SANTIAGO, SANTIAGO Unavailable Unavailable TEAGAN ANT, TEAGAN ANT Unavailable Unavailable MICHAEL, MICHAEL Unavailable Unavailable MICHAEL MEGAN, MICHAEL Unavailable Unavailable MEGAN [facility] Unavailable Unavailable SERVICE, [facility] Unavailable Unavailable SERVICE, [facility] BUX, BUX Unavailable Unavailable BUX ANJ, BUX ANJ Unavailable Unavailable [facility], Unavailable Unavailable LLC, [facility], Unavailable Unavailable LLC, [facility] Unavailable Unavailable CONSULTANTS O, [facility] CASE JUS, CASE JUS Unavailable Unavailable [facility], Unavailable Unavailable [facility] Unavailable Unavailable PHYS PSC, [...] CLA JAROD FEDE, JAROD Unavailable Unavailable FEDE [facility], [facility], Unavailable Unavailable [facility] Unavailable Unavailable EMS, [facility] EMS CALLUM WHI, CALLUM Unavailable Unavailable WHI CALLUM WHI, CALLUM Unavailable Unavailable I [facility] Unavailable Unavailable INC, [facility] Unavailable [facility]available HOSPITAL, [facility] Unavailable Unavailable HOSPITAL P, [facility] P [facility], Unavailable Unavailable [facility] GO, GO Unavailable Unavailable GO TRA, GO TRA Unavailable Unavailable GO TRA, GO TRA Unavailable Unavailable ESPINOSA LEL, ESPINOSA LEL Unavailable Unavailable [facility] Unavailable Unavailable [facility], [facility] TALHAMt SANCHEZ, KEIRA Unavailable Unavailable M DANIEL [facility] Unavailable Unavailable [facility], [facility] Unavailable Unavailable ASSOCIAT, [facility] TAYLOR OFE, TAYLOR Unavailable Unavailable [...] DWI, BRIAN Unavailable Unavailable JR DWI [facility] Unavailable Unavailable ASSOCIATES,, [facility], GARCIA MAX, GARCIA Unavailable Unavailable MAX [...] Unavailable MAX [facility] Unavailable Unavailable SERV DIRECTOR SOCIAL WELFARE R, [facility] DIRECT[facility] SOC[facility] WELF[facility] R [facility] Unavailable Unavailable SERV DIRECTOR SOCIAL WELFARE R, [facility] DIRECT[facility] SOCIAL WELFARE R MONGIARDO FRA, Unavailable Unavailable MONGIARDO FRA MORRIN, MORRIN Unavailable Unavailable MORRIN YANY, MORRIN Unavailable Unavailable YANY [facility] Unavailable Unavailable BOARD, [facility] BOARD [facility], [...] JAL, SHOJAEI-SOLEDAD JAL FINESSE MAT, Unavailable Unavailable IFNESSE MAT BRIGHT III JAM, Unavailable Unavailable BRIGHT [...] Unavailable Unavailable [facility], [facility] Unavailable Unavailable [facility], Unavailable Unavailable [facility] VASCELLO GIANNI, Unavailable Unavailable VASCELLO GIANNI VASCELLO GIANNI, Unavailable Unavailable VASCELLO GIANNI WALKER, WALKER Unavailable Unavailable WALKER FOR, WALKER Unavailable Unavailable FOR HAROLDO SHIELDS Unavailable Unavailable HERRERA WHITE JUDY, WHITE JUDY Unavailable Unavailable Purpose Continuity of Care Document - 01-06-2013 through 2016 Problems Code Diagnosis DOS Provider Status [id number] OTHER 05-25-2017 [facility] VITREOUS OPACITIES RIGHT EYE H538 OTHER 05-25-2017 [place] VISUAL DISTURBANCE S M5030 OTH 05-25-2017 [facility] CERVICAL [facility] DISC INC DEGENERATIO N UNS CERV REGION M5136 OTH 05-20-2017 [facility], RAL DISC LLC DEGEN LUMBAR REGION M5010 CERVICAL 05-06-2017 PAVANJAY JAY VILLEGASX, DISC D/O MD, PSC W/RADICULOP ATHY UNS CERV RGN M5116 INTERVERTEB 05-06-2017 PAVAN MUELLER, RAL DISC , PSC D/O W/RADICULOP ATHY LUMB RGN M961 POSTLAMINEC 05-06-2017 [facility] SYNDROME INC NEC R52 PAIN 05-06-2017 COMMUNITY UNSPECIFIED ANESTH OF THE BLUE S12619 ENCOUNTER 05-01-2017 [facility] FOR OTHER MEM [facility] PREPROCEDUR INC AL EXAMINATION Z0100 ENCOUNTER 04-27-2017 [place] EXAM EYES & VISION W/O ABNORMAL FIND M7062 TROCHANTERI 04-20-2017 GRACE Kellogg BURSITIS ORTH[facility]IC LEFT HIP ASSOCIAT O40805 LATTICE 04-15-2017 [place] DEGENERATIO N OF RETINA BILATERAL H5310 UNSPECIFIED 04-15-2017 [place] SUBJECTIVE VISUAL DISTURBANCE S Q0700 ARNOLD-KEAGAN 04-15-2017 [place] RI SYND W/O SPINA BIFIDA/HYDR OCEPHLUS F52162 MIGRAINE 04-09-2017 [facility] W/O AURA NEUROLOGY INTRACT W/O STAT MIGRAINOSUS G8929 OTHER 04-09-2017 [facility] CHRONIC HEALTH PAIN MEDICAL GROUP J0140 ACUTE 04-09-2017 [facility] PANSINUSITI HEALTH S MEDICAL UNSPECIFIED GROUP P32059 PAIN IN 04-09-2017 [facility] LEFT HIP HEALTH MEDICAL GROUP R51 HEADACHE 04-09-2017 [facility] R600 LOCALIZED 04-09-2017 [facility] E039 HYPOTHYROID 04-02-2017 [facility] ISM [facility]ALTH UNSPECIFIED MEDICAL GROUP J0100 ACUTE 04-02-2017 [facility] MAXILLARY [facility] SINUSITIS MEDICAL UNSPECIFIED GROUP M549 DORSALGIA 04-02-2017 [facility] UNSPECIFIED HEALTH MEDICAL GROUP M5412 RADICULOPAT 03-16-2017 [facility] HY CERVICAL [facility] REGION INC M5416 RADICULOPAT 03-16-2017 [facility] HY LUMBAR [facility] REGION INC K3184 GASTROPARES 02-06-[address] [facility] IS PHYSICIANS GROUP D259 LEIOMYOMA 02-05-2017 [place] [facility]ICAL OF UTERUS SERV UNSPECIFIED FOUNDATION I10 ESSENTIAL 02-05-2017 [place] [facility] PRIMARY SERV HYPERTENSIO FOUNDATION N [id number] UNSPECIFIED 02-05-2017 [place] [facility] OVARIAN SERV CYST RIGHT FOUNDATION SIDE G79685 UNSPECIFIED 02-05-2017 [place] [facility] OVARIAN SERV CYST [...] ANESTH OF THE BLUE K651 PERITONEAL 01-05-[address] [facility] ABSCESS PHYSICIANS GROUP G4719 OTHER 12-31-2016 [...] 12-11-2016 LAB DEV[facility] OF [facility] MICTURITION HOLDINGS B43737 UNSPECIFIED 11-10-2016 [facility] OVARIAN [facility] CYST INC UNSPECIFIED SIDE M791 MYALGIA 10-17-2016 [facility] INC G909 DISORDER 09-30-2016 [facility] AUTONOMIC MEDICAL NERVOUS GROUP SYSTEM UNS R072 PRECORDIAL 09-30-2016 [facility] PAIN HEALTH MEDICAL GROUP E782 MIXED 09-26-2016 LAB DEVENDRA HYPERLIPIDE MANISH HERIBERTO HOLDINGS P48147 ENCOUNTER 09-26-2016 [facility], MEDIA RELATIONS ASSOCIATE EXAM LLC GENERAL RTN W/O ABNORMAL FIND Z1151 ENCOUNTER 09-26-2016 [facility], FOR LLC SCREENING FOR HUMAN PAPILLOMAVI IVET L659 NONSCARRING 09-12-2016 [facility] HAIR LOSS [facility] UNSPECIFIED INC P08073A LAC W/O FB 09-01-2016 [facility] RT MIDDLE [facility] FINGER W/O INC DAMAGE NAIL INIT J57334G LAC W/O FB 09-01-2016 [facility] UNS FINGER PHYSICIANS, W/O DAMAGE PLLC NAIL INITIAL U499DKT CONTACT OT 09-01-2016 [facility] OBJECT NOT INC ELSWHERE CLASS INIT [id number] KITCHEN 09-01-2016 [facility] SINGLE-FAM [facility] HOUSE PLACE INC OCCUR EXT CAUSE Z23 ENCOUNTER 09-01-2016 [facility] FOR [facility] IMMUNIZATIO INC N M4806 SPINAL 08-27-2016 [facility] STENOSIS COMMUNTIY LUMBAR HOSPITA REGION M5126 OTH 08-27-2016 [facility] INTERVERTEB COMMUNTIY RAL DISC HOSPITA DISPLACEMEN T LUMBAR RGN M542 CERVICALGIA 08-25-[address] [facility] PHYSICIANS GROUP D229 MELANOCYTIC 08-07-2016 [facility] [place] NURSE NEVI PRACTITIONE UNSPECIFIED R GR I868 VARICOSE 08-07-2016 [facility] [place] NURSE VEINS OF PRACTITIONE OTHER R GR SPECIFIED SITES L709 ACNE 08-07-2016 [facility] [place] NURSE UNSPECIFIED PRACTITIONE R GR R601 GENERALIZED 08-05-2016 LAB DEVENDRA EDEMA MANISH HOLDINGS M8580 OT SPEC 07-08-2016 [facility] D/O [facility] DENSITY MEDICAL STRUCTURE GROUP UNS SITE M545 LOW BACK 07-03-2016 [facility] PAIN ORTHOPAEDIC S PSC M461 SACROILIITI 06-27-2016 [facility] S NOT [facility] ELSEWHERE INC CLASSIFIED H5213 MYOPIA 06-12-2016 [place] [facility] BILATERAL SERV FOUNDATION H5319 OTHER 06-12-2016 [place] [facility] SUBJECTIVE SERV VISUAL FOUNDATION DISTURBANCE S D85551 CHRONIC 05-14-2016 [facility] MIGRAINE [facility]ALTH W/O AURA MEDICAL INTRACT W/O GROUP STAT MIGR M810 AGE-RELATED 05-09-2016 [facility] OSTEOPOROSI INC S W/O CURRNT PATH FX Z1231 ENCOUNTER 05-09-2016 [place] SCREENING MEDICAL MAMMO MALIG IMAGING ASS NEOPLASM BREAST Z88413 ENCOUNTER 05-09-2016 [place] FOR MEDICAL SCREENING IMAGING ASS FOR OSTEOPOROSI S K5909 OTHER 05-06-2016 UL CONSTIPATIO Medicine N K591 FUNCTIONAL 05-06-2016 UL DIARRHEA Medicine M4800 SPINAL 05-06-2016 [facility] UNSPECIFIED R140 ABDOMINAL 05-06-2016 UL DISTENSION Medicine GASEOUS R6881 EARLY 05-06-2016 [facility] SATIETY Medicine R5382 CHRONIC 04-29-2016 [facility] UNSPECIFIED MEDICAL GROUP R5383 OTHER 04-18-2016 LAB DEVENDRA FATIGUE MANISH HOLDINGS R42 DIZZINESS 04-07-[address] [facility] AND PHYSICIANS GIDDINESS GROUP [id number] CONCUSSION 04-07-[address] [facility] WITHOUT LOC PHYSICIANS INITIAL GROUP ENCOUNTER Q54528 ACUTE 03-02-2016 [facility]IVE [facility] W/O HOSPITAL RUPT EAR DRUM UNS EAR R110 NAUSEA 02-27-2016 [facility] MEDICAL GROUP Q019C1C CONCUSSION 02-27-2016 [facility] W/LOC UNS HEALTH DURATION MEDICAL INITIAL GROUP ENCOUNTER M1611 UNILATERAL 01-29-2016 [place] PRIMARY [facility] OSTEOARTHRI IMAGING ASS TIS RIGHT HIP X06608 PAIN IN 01-29-2016 [place] RIGHT HIP MEDICAL IMAGING ASS H5210 MYOPIA 01-15-2016 [place] [facility] UNSPECIFIED SERV EYE FOUNDATION H5203 HYPERMETROP 12-27-2015 [place] IA GRE BILATERAL J069 ACUTE UPPER 12-13-2015 LAB DEVENDRA MANISH RESPIRATORY HOLDINGS INFECTION UNSPECIFIED R928 OTH ABNORM 12-13-2015 [facility] & HEALTH INCONCLUSIV MEDICAL E FIND ON GROUP DX IMAG BREAST Z6829 BODY MASS 12-13-2015 [facility] INDEX BMI HEALTH 29.0-29.9 MEDICAL ADULT GROUP J0190 ACUTE 12-09-2015 [facility] SINUSITIS [facility] R05 COUGH 11-16-2015 [facility] PHYSICIANS, [facility] M5430 SCIATICA 10-17-2015 [facility] UNSPECIFIED HEALTH SIDE MEDICAL GROUP H539 UNSPECIFIED 10-04-2015 [facility] VISUAL HEALTH DISTURBANCE MEDICAL GROUP R358 OTHER 10-04-2015 [facility] POLYURIA HEALTH MEDICAL GROUP R079 CHEST PAIN 10-02-2015 [place] [facility] UNSPECIFIED SERV FOUNDATION R9431 ABNORMAL 10-02-2015 [facility] ELECTROCARD LAR IOGRAM CONSULTANTS O Q02513 OTHER LONG 10-01-[address] [facility] TERM PHYSICIANS CURRENT GROUP DRUG THERAPY Z0000 ENCOUNTER 09-25-2015 [facility] GEN ADULT HEALTH MED EXAM MEDICAL W/O GROUP ABNORMAL FIND A6000 HERPESVIRAL 08-17-2015 [facility] INFECTION HEALTH OF MEDICAL UROGENITAL GROUP SYSTEM UNS B009 HERPESVIRAL 08-17-2015 [facility] INFECTION HEALTH UNSPECIFIED MEDICAL GROUP Z202 CONTACT 08-17-2015 [facility] WITH HEALTH EXPOSURE MEDICAL INFECT GROUP SEXUAL MODE TRANSMS 68933 DEGEN 07-26-2015 [place] LUMBAR/LUMB MEDICAL OSACRAL IMAGING ASS INTERVERTEB RAL DISC 7242 LUMBAGO 07-26-2015 [place] [facility] 88735 PROGRESSIVE 07-25-2015 [place] [facility] HIGH SERV MYOPIA FOUNDATION 71156 CHRONIC 07-11-2015 [facility] MIGRAINE HEALTH W/O MEDICAL W/INTRACTAB GROUP LE W/O SM 7231 CERVICALGIA 07-11-2015 [facility] MEDICAL GROUP 7049 UNSPECIFIED 07-02-2015 [facility] DISEASE OF HEALTH HAIR AND MEDICAL HAIR GROUP FOLLICLES 7245 UNSPECIFIED 07-02-2015 [facility] BACKACHE HEALTH MEDICAL GROUP 7881 DYSURIA 07-02-2015 [facility] DEV[facility] MAN[facility] HOLDINGS 3384 CHRONIC 06-22-2015 LAB DEV[facility] PAIN MAN[facility] SYNDROME HOLDINGS 5990 URINARY 06-22-2015 LAB DEV[facility]DRA TRACT MANISH INFECTION HOLDINGS SITE NOT SPECIFIED 32029 OTHER 06-15-2015 [facility] VITREOUS SERV OPACITIES FOUNDATION 5363 GASTROPARES 05-14-2015 [facility] IS SERV FOUNDATION 5609 UNSPECIFIED 05-14-2015 [facility] INTESTINAL SERV FOUNDATION OBSTRUCTION 7873 FLATULENCE 05-14-2015 [facility] ERUCTATION SERV AND GAS FOUNDATION PAIN 4011 ESSENTIAL 05-01-2015 [facility] HYPERTENSIO HEALTH N, BENIGN MEDICAL GROUP 44293 ACUTE 05-01-2015 [facility] IDIOPATHIC HEALTH PERICARDITI MEDICAL S GROUP 87993 OTHER CHEST 05-01-2015 [facility] PAIN HEALTH MEDICAL GROUP V7281 PRE-OPERATI 05-01-2015 [facility] VE HEALTH CARDIOVASCU MEDICAL LAR GROUP EXAMINATION 7213 LUMBOSACRAL 04-23-2015 [place] [facility] SPONDYLOSIS IMAGING ASS WITHOUT MYELOPATHY 35360 DISPLCMT 04-23-2015 [place] LUMBAR MEDICAL INTERVERT IMAGING ASS DISC W/O MYELOPATHY 67231 LATTICE 04-20-2015 [facility] DEGENERATIO SERV N OF FOUNDATION PERIPHERAL RETINA 2449 UNSPECIFIED 04-08-2015 [facility] HYPOTHYROID ISM 3671 MYOPIA 04-08-2015 [facility] 34751 OTHER 04-08-2015 [facility] ALICE DISTORTIONS AND ENTOPTIC PHENOMENA 3688 OTHER 04-08-2015 [place] [facility] SPECIFIED SERV VISUAL FOUNDATION DISTURBANCE S 05716 PAIN IN OR 04-08-2015 [facility] 4019 UNSPECIFIED 04-08-2015 [facility] HYPERTENSIO N 4239 UNSPECIFIED 04-08-2015 [facility] PERICARDIUM 4289 UNSPECIFIED 04-08-2015 [facility] FAILURE SERV DIRECTOR SOCIAL WELFARE R 17825 OTHER 04-08-2015 [facility] LUNG NOT ELSEWHERE CLASSIFIED 24974 CHEST PAIN 04-08-2015 [place] [facility] UNSPECIFIED SERV FOUNDATION V1259 PERS HX, 04-08-2015 [place] [facility] OTHER SERV DISEASES OF FOUNDATION CIRCULATORY SYSTEM 3699 UNSPECIFIED 04-07-2015 [facility] VISUAL EMERGENCY LOSS PHYS PSC 76528 UNSPECIFIED 04-07-2015 [facility] DISORDER AMBULANCE OF EYE SERVICE 7820 DISTURBANCE 03-29-2015 [facility] SK[facility] HEALTH SENSATION MEDICAL GROUP 19565 REGULAR 03-28-2015 [place] [facility] ASTIGMATISM SERV FOUNDATION 03177 INTERMITTEN 03-28-2015 [place] [facility] T SERV EXOTROPIA, FOUNDATION ALTERNATING 33039 OTHER 03-01-2015 [place] SPECIFIED MEDICAL DISORDERS IMAGING ASS OF BREAST 95352 UNSPECIFIED 03-01-2015 [facility] ABNORMAL [facility] MAMMOGRAM INC 76790 ATROPHIC 02-26-2015 [facility] GASTRITIS [facility] WITHOUT MENTION OF HEMORRHAGE 26289 UNS 02-26-2015 [facility] GASTRITIS&G [facility] ASTRODUODIT INC IS W/O MENTION HEMORR 74866 NAUSEA 02-26-2015 [facility] ALONE [facility] INC 86745 ABDOMINAL 02-26-2015 [facility] PAIN, MEM HOS[facility] GENERALIZED INC V5869 LONG-TERM 02-26-2015 [facility] (CURRENT) [facility] USE OF INC OTHER MEDICATIONS 7804 DIZZINESS 11-29-2014 [facility] GIDDINESS MEDICAL GROUP 7840 HEADACHE 11-29-2014 [facility] MEDICAL GROUP 04778 OTHER 10-27-[address] [facility] DISEASES OF PHYSICIANS LARYNX GROUP 09654 DYSPHONIA 10-27-[address] [facility] PHYSICIANS GROUP 01560 DYSPHAGIA 10-27-[address] [facility] UNSPECIFIED PHYSICIANS GROUP V642 SURG/OTH 10-23-2014 [facility] PROC NOT [facility] CAR[facility]OSP[facility] P BECAUSE PTS DECN 10119 EARLY 10-17-[address] [facility] SATIETY PHYSICIANS GROUP 62430 DYSPHAGIA 10-17-[address] [facility] OROPHARYNGE PHYSICIANS AL PHASE GROUP 23982 ABDOMINAL 10-17-[address] [facility] PAIN, PHYSICIANS EPIGASTRIC GROUP 76471 INSOMNIA 09-27-2014 [facility] UNSPECIFIED NEUROLOGY CENTER [place] V700 ROUTINE 09-21-2014 [facility] GENERAL [facility] MEDICAL INC EXAM@HEALTH CARE FACL V7612 OTHER 09-21-2014 [place] SCREENING MEDICAL MAMMOGRAM IMAGING ASS 11763 ABDOMINAL 09-18-2014 [place] PAIN, MEDICAL UNSPECIFIED IMAGING ASS SITE 3829 UNSPECIFIED 09-16-2014 FYAE SANTANA OTITIS MEDIA 4619 ACUTE 09-16-2014 FAYE SANTANA SINUSITIS, UNSPECIFIED V0481 NEED 09-16-2014 FAYE SANTANA PROPHYLACTI C VACCINATION &INOCULATIO N FLU 3502 ATYPICAL 09-06-2014 [facility] FACE PAIN NEUROLOGY CENTER [place] 94046 MIGRAINE 08-24-2014 [facility] W/O AURA NEUROLOGY INTRACT W/O CENTER [place] STATUS MIGRAINOSUS 2181 INTRAMURAL 08-23-2014 [facility] LEIOMYOMA 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, 2189 LEIOMYOMA 08-15-2014 [place] OF UTERUS, MEDICAL UNSPECIFIED IMAGING ASS 6202 OTHER AND 08-15-2014 [facility] UNSPECIFIED MEM HOSP OVARIAN INC CYST 6259 UNSPEC 08-15-2014 [place] SYMPTOM [facility] ASSOC IMAGING ASS W/FEMALE GENITAL ORGANS 7812 ABNORMALITY 08-09-2014 [facility] OF GAIT NEUROLOGY CENTER [place] V7231 ROUTINE 08-07-2014 [facility] BENJAMIN GYNECOLOGIC AL EXAMINATION V762 SCREENING 08-07-2014 LABORATORY FOR DEVENDRA OF MALIGNANT MANISH H NEOPLASM OF THE CERVIX 90038 ESOPHAGEAL 07-31-2014 [facility] GROUP 7291 UNSPECIFIED 06-04-2014 [facility] INC MYALGIA AND MYOSITIS 5950 ACUTE 05-03-2014 [facility] BENJAMIN CYSTITIS 40511 OTHER 05-03-2014 AP[place] [address] OSTEOARTHRO 04-21-2014 FAYE SANTANA S INVLV MX SITES [place] [address] BENIGN 04-17-2014 [facility] PAROXYSMAL [facility] POSITIONAL HOSP VERTIGO V571 OTHER 04-17-2014 [facility] PHYSICAL [facility] THERAPY HOSP 7210 CERVICAL 03-21-2014 VASCELLO SPONDYLOSIS GIANNI WITHOUT MYELOPATHY 7230 SPINAL 03-20-2014 [place] STENOSIS IN [place] CERVICAL REGION 32114 SPINAL STEN 03-20-2014 [place] LUMB REG [place] W/O NEUROGENIC [place]UDICATIO N 81627 SPINA 03-20-2014 [place] BIFIDA WITH [place] HYDROCEPHAL US CERVICAL REGION 38381 POSTLAMINEC 01-31-2014 [facility]INO SYNDROME CERVICAL REGION 7244 THORACIC/ABRAHAM 01-31-2014 MARIIRUPALI STEIN MBOSACRAL NEURITIS/RA DICULITIS UNSPEC 0549 HERPES 01-26-2014 [facility] BENJAMIN SIMPLEX WITHOUT MENTION OF COMPLICATIO N 5533 DIAPHRAGMAT 01-19-2014 [facility] WHI ALTAGRACIA W/O MENTION OBSTRUCTION /GANGREN 7821 RASH AND 01-19-2014 [facility] WHI OTHER NONSPECIFIC SKIN ERUPTION 7850 UNSPECIFIED 01-18-2014 [facility] ANT TACHYCARDIA 14913 CHRONIC 01-13-2014 [facility] PL[facility]ATION EMERGENCY W/O AURA W/O INTRACTABLE W/O SM 7218 OTHER 01-10-2014 [facility] ALLIED JANET DISORDERS OF SPINE 7220 DISPLCMT 01-10-2014 [facility] CERV JANET INTERVERT DISC WITHOUT MYELOPATHY 13829 KYPHOSIS 01-10-2014 [facility] ACQUIRED JANET POSTURAL V454 ARTHRODESIS 01-10-2014 [facility] STATUS JANET V1641 FAMILY 01-05-2014 [facility] HISTORY OF JANET MALIGNANT NEOPLASM OVARY 7224 DEGENERATIO 12-29-2013 GO TRA N OF CERVICAL INTERVERTEB RAL DISC 2724 OTHER AND 12-28-2013 [facility]T UNSPECIFIED HYPERLIPIDE HERIBERTO 77861 ABDOMINAL 12-08-2013 [facility] WHI PAIN, LEFT LOWER QUADRANT 345.90 345.90 09-21-2013 Mehran EPILEPSY [facility] UNSPEC W/O Hospital MENTION INTRACTABLE EPILEPSY 401.9 401.9 09-21-2013 Mehran HYPERTENSIO [facility] 413.9 413.9 09-21-2013 Mehran ANGINA [facility] PECTORIS [facility] NEC/NOS 786.50 786.50 09-21-2013 Mehran CHEST PAIN [facility] V14.8 V14.8 09-21-2013 Mehran HX-DRUG [facility] ALLERGY [facility] V45.89 V45.89 09-21-2013 Mehran POSTSURGICA [facility] V58.69 V58.69 OTH 09-21-2013 Mehran MED,LT,CURR [facility] ENT USE Hospital 4299 UNSPECIFIED 09-10-2013 [facility] DISEASE [facility] 79684 ALTERED 09-06-2013 [facility] MENTAL RADIOLOGY STATUS ASSOC 692.9 692.9 05-24-2013 Mehran DERMATITIS [facility] 723.1 723.1 05-24-2013 Mehran CERVICALGIA [facility] 780.39 780.39 05-24-2013 Mehran OTHER [facility] CONVULSIONS [facility] 780.2 780.2 01-07-2013 Mehran SYNCOPE AND [facility] COLLAPSE Hospital 780.79 780.79 OTH 01-07-2013 Idanha MALAISE&FAT [facility] 781.2 781.2 01-07-2013 [facility] M54.2 CERVICALGIA R05 COUGH R07.9 CHEST PAIN, UNSPECIFIED R51 HEADACHE S61.219A LACERATION W/O FB OF UNSP FINGER W/O DAMAGE TO NAIL, INIT Z53.21 PROC/TRTMT NOT CRD OUT D/T PT LV BEF SEEN BY TH CARE PROV Allergies, Adverse Reactions, Alerts Type [...] #3 93 MG 8 TA BL ET HI 65 07 08 30 7 00 RI [...] AI ZA 75 17 17 44 D HI 0 99 PH IN AR E MA [...] CY TA BL #3 ET 93 8 HI 65 05 06 30 15 00 RI Ac OM 16 -1 -0 .0 00 TE ti ET 20 5- 9- 00 01 ve GERARDO 52 20 20 17 AI ZI 11 17 17 73 D NE 0 66 PH AR 25 MA CY MG #3 TA 93 BL 8 ET PANEL COVERER 42 05 06 30 30 00 RI [...] CY TA #3 BL 93 ET 8 HI 65 03 04 30 15 00 RI [...] CA #3 PS 93 UL 8 E HI 00 01 02 15 10 00 RI Ac OM 60 -1 -1 0. 00 TE ti ET 31 2- 0- 00 01 ve GERARDO 58 20 20 0 16 AI ZI 65 17 17 65 D NE 4 80 PH -D AR M MA SY CY RU P #3 93 8 HI 00 01 02 60 30 00 RI [...] 93 BL 8 ET ZO 13 01 30 30 00 RI Ac LP [...] CY TA BL #3 ET 93 8 HI 00 11 0 No OM 64 -0 [...] ti ML ve Sy ri ng e HI 00 07 0 No OM 64 -0 [...] ve 0. 9% SO ABRAHAM TI ON HI 00 02 0 No OM 64 -2 ET 11 2- Lo GERARDO 49 20 ng ZI 53 13 er NE 5 Ac 25 ti ve MG /M L AM PU L SO 00 02 1 No DI 40 -2 UM 97 1- Lo 98 20 ng CH 42 13 er LO 0 RI Ac DE ti ve 0. 9% SO ABRAHAM TI ON HI 00 02 0 No OM 64 -2 [...] on COMPREHENSIVE METABOLIC PANEL (09-20-2013 22:45) Glucose 98 74-106 complet 013 mg/dL ed Bld-mCn 22:45 c BUN 15 7-18 complet Bld-mCn 013 mg/dL ed c 22:45 Creat 1.4 0.6-1.0 complet SerPl-m 013 mg/dL ed Cnc 22:45 ESTIMAT 73 50-200 complet ED 013 ML/MIN ed CREATIN 22:45 INE CLEARAN CE GFR 41 59- complet (ESTIMA 013 ML/MIN ed KARLA) 22:45 Sodium 138 136-145 complet SerPl-s 013 mmoL/L ed Cnc 22:45 Potassi 4.2 3.5-5.1 complet um 013 mmoL/L ed SerPl-s 22:45 Cnc Chlorid 103 98-107 complet e 013 mmoL/L ed SerPl-s 22:45 Cnc CO2 26 21.0-32 complet SerPl-s 013 mmoL/L .0 ed Cnc 22:45 Calcium 8.6 8.5-10. complet 013 mg/dL 1 ed SerPl-m 22:45 Cnc Prot 7.2 6.4-8.2 complet SerPl-m 013 gm/dL ed Cnc 22:45 Albumin 3.8 3.4-5.0 complet 013 gm/dL ed SerPl-m 22:45 Cnc Globuli 3.4 1.3-3.2 complet n 013 gm/dL ed Ser-mCn 22:45 c Albumin 1.1 UNK 1.1-1.8 complet /Glob 013 ed SerPl-m 22:45 Rto Bilirub 0.2 0.2-1.0 complet 013 mg/dL ed SerPl-m 22:45 Cnc AST 12 U/L 15-37 complet SerPl-c 013 ed Cnc 22:45 ALT 33 U/L 30-65 complet SerPl-c 013 ed Cnc 22:45 ALP 11-05-2 84 U/L 50-136 complet SerPl-c 013 ed Cnc 22:45 Amylase SerPl-cCnc (09-20-2013 22:45) Amylase 1105-2 51 U/L 25-115 complet 013 ed SerPl-c 22:45 Cnc LIPASE (09-20-2013 22:45) LIPASE 05-2 318 U/L 73-393 complet 013 ed 22:45 CBC with AUTO DIFF (09-20-2013 22:45) WBC # 11-05-2 8.1 4.8-10. complet Bld 013 K/MM3 8 ed Auto 22:45 RBC # 11-05-2 4.53 4.2-5.4 complet Bld 013 M/mm3 ed Auto 22:45 Hgb 11-05-2 13.9 12.2-16 complet Bld-mCn 013 g/dL .2 ed c 22:45 Hct Fr 09-20-2 40.7 % 37.0-47 complet Bld 013 .0 ed 22:45 MCV RBC 11-05-2 89.9 fl 82.2-97 complet 013 .8 ed 22:45 MCH RBC 05-2 30.7 pg 27-31.2 complet Qn 013 ed Auto 22:45 MEAN 11-05-2 34.2 31.8-35 complet CORPUSC 013 g/dl .4 ed ULAR 22:45 HGB CONC RDW RBC -05-2 14.6 % 11.5-17 complet Auto 013 .5 ed 22:45 Platele -05-2 232 142-424 complet t Bld 013 K/mm3 ed Ql 22:45 Manual MEAN 05-2 8.6 fl 7.4-10. complet PLATELE 013 4 ed T 22:45 VOLUME Granulo -05-2 42.6 % 37.0-80 complet cytes 013 .0 ed Fr Bld 22:45 Auto LYMPH % -05-2 48.7 % 10-50.0 complet 013 ed 22:45 Monocyt 11-05-2 4.3 % 1.7-9.3 complet es Fr 013 ed Bld 22:45 Auto Eosinop 05-2 3.8 % 0.1-12. complet hil Fr 013 0 ed Bld 22:45 Auto Basophi 09-20-2 0.6 % 0.1-2.0 complet ls Fr 013 [...] 013 K/mm3 ed Bld 22:45 Auto Basophi 09-20-2 0.1 0-0.2 complet ls # 013 K/MM3 [...] mg/dL 1 ed SerPl-m 19:25 Cnc Prot 05-24-2 7.8 6.4-8.2 complet SerPl-m 013 gm/dL ed Cnc 19:25 Albumin 05-24-2 4.1 3.4-5.0 complet 013 gm/dL ed SerPl-m 19:25 Cnc Globuli 2 3.7 1.3-3.2 complet n 013 gm/dL ed Ser-mCn 19:25 c Albumin 2 1.1 UNK 1.1-1.8 complet /Glob 013 ed SerPl-m 19:25 Rto Bilirub 0.5 0.2-1.0 complet 013 mg/dL ed SerPl-m 19:25 Cnc AST 05-24- 23 U/L 15-37 complet SerPl-c 013 ed Cnc 19:25 ALT 39 U/L 30-65 complet SerPl-c 013 ed [...] Bld 013 .0 ed 19:20 MCV RBC 05-24- 91.0 fl 82.2-97 complet 013 .8 ed 19:20 MCH RBC 2 31.5 pg 27-31.2 complet Qn 013 ed Auto 19:20 MEAN 34.7 31.8-35 complet CORPUSC 013 g/dl .4 ed ULAR 19:20 HGB CONC RDW RBC 05-24-2 13.6 % 11.5-17 complet Auto 013 .5 [...] Bld 19:20 Auto URINALYSIS/COMPLETE (05-24-2013 19:05) URINE --2 YELLOW YELLOW complet COLOR 013 ed 19:05 URINE 05-24-2 CLEAR CLEAR complet APPEARA 013 ed NCE 19:05 URINE 05-24-2 NEGATIV NEG complet GLUCOSE 013 E ed - 19:05 DIPSTIC K URINE 05-24-2 NEGATIV NEG complet BILIRUB 013 E ed IN - 19:05 DIPSTIC K URINE 05-24-2 NEGATIV NEG complet KETONE 013 E mg/dL ed 19:05 URINE 05-24-2 Greater 1.005-1 complet SPECIFI 013 than .030 ed C 19:05 or GRAVITY equal to 1.030 URINE 07-09-2 NEGATIV NEG complet BLOOD 013 E ed 19:05 URINE 5.5 UNK 5.0-8.5 complet PH 013 ed [...] mg/dL 1 ed SerPl-m 22:14 Cnc Prot 02-21-2 7.1 6.4-8.2 complet SerPl-m 013 gm/dL ed Cnc 22:14 Albumin 01-06-2 3.6 3.4-5.0 complet 013 gm/dL ed SerPl-m 22:14 Cnc Globuli 01-06-2 3.5 1.3-3.2 complet n 013 gm/dL ed Ser-mCn 22:14 c Albumin 2 1.0 UNK 1.1-1.8 complet /Glob 013 ed SerPl-m 22:14 Rto Bilirub 01-06-2 0.2 0.2-1.0 complet 013 mg/dL ed SerPl-m 22:14 Cnc AST 22 U/L 15-37 complet SerPl-c 013 ed Cnc 22:14 ALT 01-06-2 40 U/L 30-65 complet SerPl-c 013 ed Cnc 22:14 ALP 01-06- 92 U/L 50-136 complet SerPl-c 013 ed [...] 013 K/mm3 ed Ql 22:14 Manual MEAN 2 8.5 fl 7.4-10. complet PLATELE 013 4 ed T 22:14 VOLUME Granulo -21-2 53.8 % 37.0-80 complet cytes 013 .0 ed Fr Bld 22:14 Auto LYMPH % 02-21-2 38.1 % 10-50.0 complet 013 ed 22:14 Monocyt -21-2 5.5 % 1.7-9.3 complet es Fr 013 ed Bld 22:14 Auto Eosinop 02-21-2 2.1 % 0.1-12. complet hil Fr 013 0 ed Bld 22:14 Auto Basophi 02-21-2 0.5 % 0.1-2.0 complet ls Fr 013 ed Bld 22:14 Auto Granulo 02-21-2 4.0 1.8-7.8 complet cytes # 013 K/mm3 ed Bld 22:14 Auto Lymphoc -21-2 2.9 0.7-4.5 complet ytes Fr 013 K/mm3 ed Bld 22:14 Auto Monocyt -21-2 0.4 0.1-1.0 complet es # 013 K/mm3 ed Bld 22:14 Auto Eosinop -21-2 0.2 0.0-0.4 complet hil # 013 K/mm3 ed Bld 22:14 Auto Basophi 02-21-2 0.0 0-0.2 complet ls # 013 K/MM3 [...] 5.0-8.5 complet PH 013 ed 21:37 URINE 02-21-2 NEGATIV NEG complet PROTEIN 013 E mg/dL [...] complet WBC 013 wbc/hpf ed 21:37 URINE 3-5 0-5 complet SQUAMOU 013 #/hpf ed S CELLS 21:37 Procedures Procedure DOS Code Location Performer Comment LSO L0650 CARDINAL CARDINAL SAGITTAL- 7 ORTHOTICS ORTHOTICS CORONAL , [employer] , [employer] CONTRL RIGD ANT POST PANELS ANES 90334 [facility] INTEG 7 ANESTH MUSC & OF THE NRV HEAD BLUE NECK&POST ERIOR TRUNK INFUSION C1772 MEHRAN LAURENT PUMP 7 [facility] PROGRAMMA INC INC BLE IMPLTJ 17558 MEHRAN LAURENT REVJ/RPSG 7 [facility] INC INC 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 W/O PEREZ UNCLASSIF J3490 MEHRAN LAURENT IED DRUGS 7 [facility] INC INC IMPLTJ/RP 00470 [place] [facility] SPOONAM[facility] LCMT 7 SURGICAL E ITHCL/EDR L DRUG NFS PRGRBL PUMP BASIC 29469 MEHRAN LAURENT METABOLIC 7 [facility] PANEL INC INC CALCIUM TOTAL BLOOD 58076 MEHRAN LAURENT COUNT 7 [facility] COMPLETE INC INC AUTO&AUTO DIFRNTL WBC DETERMINA 83930 LUDMILA KEYS TION 7 REFRACTIV E STATE OPHTH 30299 [facility] 7 XM&EVAL COMPRHNSV ESTAB PT 1/> ARTHROCEN 85699 [facility] CARBAJAL 7 ORTHOPEDI ASPIR&/IN C J MAJOR ASSOCIAT JT/BURSA W/O [employer] COMPUTERI 32516 ALEX JOHNSON ZED 7 OPHTHALMI C IMAGING RETINA DUP-SCAN 73868 [facility] [place] SCALF XTR VEINS 7 RADIOLOGY [place] L/LIMITED STUDY URNLS DIP 17015 [facility] CLEVE 7 HEALTH STICK/TAB MEDICAL LET RGNT GROUP NON-AUTO W/O MICRSCP RADEX HIP 10776 [facility] 7 RADIOLOGY [place] ASSOC L WITH PELVIS 2-3 [place] [address] CAROLE ZARCO TRANSVAGI 7 [place]ICAL [place] [address] GRACE SANTIAGO ABDOMEN & 7 MEDICAL PELVIS IMAGING W/CONTRAS ASS T MATERIAL FINAL G9551 [facility] SANT[facility] REPR ABD 7 MEDICAL IMAG STS IMAGING W/O ASS INCIDNT FND LES NTD: FINAL G9638 [facility] S[facility] REPORTS 7 MEDICAL W/O DOC IMAGING 1/[place] [address] MEHRAN LAURENT UREA 7 [facility] NITROGEN INC INC QUANTITAT [place] COLLECTIO 61128 MEHRAN LAURENT N VENOUS 7 [facility] BLOOD INC INC VENIPUNCT URE CREATININ 80957 MEHRAN LAURENT E BLOOD 7 [facility] INC INC ANES 84232 [facility] UPPER GI 7 ANESTH ENDOSCOPY OF THE PROXIMAL BLUE TO DUODENUM SLEEP STD 27731 MEHRAN LAURENT AIRFLOW 7 [facility] HRT INC INC RATE&O2 SAT EFFORT UNATT URINE 07500 MEHRAN LAURENT 7 [facility] TEST INC [place] [address] MEHRAN LAURENT HEAD/BRAI 7 [facility] N W/O INC INC CONTRAST MATERIAL FINAL G9638 [facility] SANTIAGO REPORTS 7 MEDICAL W/O DOC IMAGING 1/[place] [address] MEHRAN LAURENT INFUSION 7 [facility] THERAPY/P INC INC ROPHYLAXI S /DX 1ST TO 1 HR URNLS DIP 84679 MEHRAN LAURENT 7 [facility] STICK/TAB INC INC LET REAGENT AUTO MICROSCOP Y THERAPEUT 46083 MEHRAN LAURENT IC 7 [facility] INJECTION INC INC IV PUSH EACH NEW DRUG NJX 15133 PAVAN MUELLER DX/THER 7 MD ERVIN, SBST PSC INTRLMNR LMBR/SAC W/IMG GDN ROM 00281 MEHRAN LAURENT CHELSEY&REPR 7 [facility] T EA XTR INC INC EX HAND/EA TRNK SCTJ SPI GLUC BLD 48247 MEHRAN LAURENT GLUC MNTR 7 [facility] DEV INC INC CLEARED FDA SPEC HOME USE ANTINUCLE 06003 LAB [facility] LAB DEV[facility]DRA AR 7 [facility] ANTIB[place] [address] LAB DEVENDRA LAB DEVENDRA BLOOD/URI 7 MANISH MANISH C ACID HOLDINGS HOLDINGS COMPREHEN 96153 LAB DEV[facility] LAB DEVENDRA SIVE 7 [facility] METABOLIC HOLDINGS HOLDINGS PANEL C-REACTIV 01811 LAB [facility] LAB DEVENDRA E PROTEIN 7 [facility] HOLDINGS HOLDINGS BLOOD 26291 LAB [facility] LAB DEVENDRA COUNT 7 [facility] COMPLETE HOLDINGS HOLDINGS AUTO&AUTO DIFRNTL WBC RHEUMATOI 20394 LAB DEV[facility] LAB DEVENDRA D FACTOR 7 [facility] QUANTITAT HOLDINGS HOLDINGS [place] CHEMODERV [address] [facility] MYRIAM-M ATE 7 PHYSICIAN OGHADDAM FACIAL/TR S GROUP IGEM/CERV MUSC MIGRAINE BOTULINUM J[address] [facility] ANDREW TOXIN 7 PHYSICIAN OGHADDAM TYPE A S GROUP PER UNIT COLLECTIO 18157 MEHRAN LAURENT N VENOUS 6 [facility] BLOOD INC INC VENIPUNCT URE IMMUNOASS 59489 MEHRAN LAURENT AY TUMOR 6 [facility] ANTIGEN INC INC QUANTITAT [place] INJECTION 50652 PAVAN MUELLER MD, SINGLE/ML PSC T TRIGGER POINT 1/2 [place] [address] MEHRAN LAURENT TRANSVAGI 6 [facility] NAL INC INC LIPID 92697 LAB DEV[facility] LAB DEVENDRA PANEL 6 [facility] MAN[facility] HOLDINGS HOLDINGS CYTP C/V 34095 [facility], PICKLESIM AUTO THIN 6 LLC ER JR YEE LYR PREPJ SCR MNL RESCR PHYS COMPREHEN 82097 LAB DEV[facility] LAB DEVENDRA SIVE 6 [facility] METABOLIC [place] [address] LAB DEVENDRA LAB DEVENDRA THYROID 6 [facility] STIMULATI HOLDINGS [place] [address] LAB DEVENDRA LAB DEVENDRA THYROXINE 6 [facility] TOTAL HOLDINGS HOLDINGS IADNA 10420 [facility], PICKLESIM HUMAN 6 LLC ER JR YEE [place] VIRUS HIGH-RISK TYPES COLLECTIO 43416 MEHRAN LAURENT N VENOUS 6 [facility] [place] [address] MEHRAN LAURENT FREE 6 [facility] [place] [address] MEHRAN LAURENT THYROID 6 [facility] STIMULATI [place] [address] MEHRAN LAURENT TRIIODOTH 6 [facility] YRONINE INC INC T3 FREE BLOOD 05502 MEHRAN LAURENT COUNT 6 [facility] COMPLETE INC INC AUTO&AUTO DIFRNTL WBC SIMPLE 24552 MEHRAN LAURENT REPAIR 6 [facility] SCALP/NEC INC INC K/AX/BLUE T/TRUNK 2.5CM/< IM ADM 41164 MEHRAN LAURENT PRQ ID 6 [facility] SUBQ/IM INC INC NJXS 1 VACCINE LAMNOTMY 40005 [facility] GO INCL 6 W/DCMPRSN ORTHOPAED NRV ROOT ICS PSC 1 INTRSPC LUMBR ANESTHESI 26316 [facility] A LUMBAR 6 ANESTHESI JAVI REGION A GROUP NOS PS BOTULINUM J0585 [facility] SHOJAEI-M TOXIN 6 PHYSICIAN OGHADDAM TYPE A S GROUP PER UNIT CHEMODERV [address] [facility] SHOJAEI-M ATE 6 PHYSICIAN OGHADDAM FACIAL/TR S GROUP IGEM/CERV MUSC MIGRAINE COMPREHEN 54784 LAB DEV[facility]DRA LAB DEVENDRA SIVE 6 [facility] METABOLIC HOLDINGS HOLDINGS PANEL BLOOD 05433 LAB DEV[facility]DRA LAB DEVENDRA COUNT 6 [facility] COMPLETE HOLDINGS HOLDINGS AUTO&AUTO DIFRNTL WBC BLOOD 95135 MEHRAN LAURENT COUNT 6 [facility] COMPLETE INC INC AUTO&AUTO DIFRNTL WBC ECG 41465 MEHRAN TORRES JR ROUTINE 6 [facility] W/LEAST P 12 LDS I&R ONLY COLLECTIO 26858 MEHRAN LAURENT N VENOUS 6 [facility] BLOOD INC INC VENIPUNCT URE RADIOLOGI 39845 [facility] C EXAM 6 MEDICAL CHEST 2 IMAGING VIEWS ASS FRONTAL&L ATERAL DRUG TST G0477 MEHRAN HEON PRESUMP;C 6 [facility] PBL BEING INC INC READ DC OPT OBV ONLY ECG 58649 MEHRAN MEHRAN ROUTINE 6 [facility] ECG INC INC W/LEAST 12 LDS TRCG ONLY W/O I&R BASIC 31537 MEHRAN LAURENT METABOLIC 6 [facility] PANEL INC INC CALCIUM TOTAL INJECTION 14610 PAVAN MUELLER ANJ 6 MD ERVIN, SINGLE/ML PSC T TRIGGER POINT 1/2 [place] MRI 49881 [facility] OG TRA SPINAL 6 CANAL ORTHOPAED LUMBAR ICS PSC [place] [address] PAVAN DUFF CHARMAINE JOINT 6 MD ERVIN, ARTHRGRPH PSC Y&/ANES/S TEROID W/[place] INJ PROC G0260 MEHRAN MEHRAN SI 6 [facility] JNT;ANES INC INC STEROID&/ TX AGT&ARTHR OGRPH RADEX HIP 52971 [facility] GO 6 [place] ORTHOPAED L WITH ICS PSC PELVIS 1 VIEW DRUG TST G0477 MEHRAN LAURENT PRESUMP;C 6 [facility] PBL BEING INC INC READ DC OPT OBV ONLY THERAPEUT 49193 MEHRAN DE LA O IC 6 [facility] TIC/DX INJECTION SUBQ/IM INJECTION J1040 MEHRAN DE LA O 6 [facility] DNISOLONE ACETATE 80 MG INJECTION J1885 MEHRAN DE LA O 6 [facility] [place] INE PER 15 MG SENSORMOT 50806 [place] OR XM 6 MEDICAL 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 SERV SERV CHELSEY FOUNDATIO FOUNDATIO OCULAR N N DEVIJ W/I&R SPX COMPUTERI 91808 CAROLE SARABIAD 6 MEDICAL PAD OPHTHALMI SERV C IMAGING FOUNDATIO RETINA N CHEMODERV 40311 [facility] TOÑITO ATE 6 [facility] FACIAL/TR MEDICAL IGEM/CERV GROUP MUSC MIGRAINE BOTULINUM J0585 [facility] TOÑITO TOXIN 6 [facility] TYPE A MEDICAL PER UNIT GROUP DXA BONE 45971 [place] [facility] DENSITY 6 MEDICAL JANET STUDY 1/> IMAGING SITES ASS AXIAL SKEL COMPUTER- 01279 [place] [facility] AIDED 6 MEDICAL JANET DETECTION IMAGING ASS SCREENING MAMMOGRAP HY SCREENING G0202 [place] [facility] 6 MEDICAL JANET MAMMOGRAP IMAGING HY JOSELIN ASS INCL CAD WHEN PERFORMD [facility] G[address] [facility] ASSESS & MGMT PT INJECTION J1885 [facility] [address] [place] [address] TROMETHAM INE PER 15 MG INJECTION J1040 MEHRANZOYA DE LA O [address] [place] [address] DNISOLONE ACETATE 80 MG THERAPEUT 73362 DAHLGREN JAYLYN IC 6 [facility] TIC/DX INJECTION SUBQ/IM INJECTION J1885 [facility] MORRIN [address] [place] [address] [facility] TR[place]ETH[place] INE PER 15 MG THERAPEUT 82653 [facility] MORRIN IC 6 HEALTH [facility]HYLAC MEDICAL TIC/DX GROUP INJECTION SUBQ/[place] [address] LAB DEVENDRA LAB DEVENDRA THYROXINE 6 [facility] [address] LAB DEVENDRA LAB DEVENDRA TRIIODOTH 6 [facility] YRONINE HOLDINGS HOLDINGS T3 TOTAL TT3 COMPREHEN 69611 LAB [facility] LAB DEVENDRA SIVE 6 [facility] METABOLIC [place] [address] LAB DEVENDRA LAB DEVENDRA IRON 6 [facility] [place] [address] LAB DEVENDRA LAB DEVENDRA FOLIC 6 [facility] [place] [address] LAB DEVENDRA LAB DEVENDRA THYROID 6 [facility] STIMULATI HOLDINGS HOLDINGS NG HORMONE TSH CYANOCOBA 49756 LAB DEV[facility]DRA LAB DEVENDRA DAVID 6 [facility] VITAMIN HOLDINGS HOLDINGS B-12 25 07732 LAB DEV[facility]DRA LAB DEEVNDRA HYDROXY 6 [facility] INCLUDES HOLDINGS HOLDINGS FRACTIONS IF PERFORMED MICROSOMA 65363 LAB DEV[facility] LAB DEVENDRA L 6 [facility] ANTIBODIE HOLDINGS HOLDINGS S EACH BLOOD 05440 LAB DEV[facility]DRA LAB DEVENDRA COUNT 6 [facility] COMPLETE HOLDINGS HOLDINGS AUTO&AUTO DIFRNTL WBC IRON 84227 LAB DEV[facility] LAB DEVENDRA BINDING 6 [facility] [place] [address] PAVAN DURON CRI DX/THER 6 MD ERVIN, SBST PSC EPIDURAL/ SUBARACH LUMBAR/SA CRAL INJECTION J1030 MEHRAN LAURENT 6 [facility] METHYLPRE INC INC DNISOLONE ACETATE 40 MG LOC Q9967 MEHRAN LAURENT 300-399 6 [facility] MG/ML INC INC IODINE CONCENTRA TION PER ML HOSPITAL G0463 MEHRAN LAURENT OUTPATIEN 6 [facility] T CLIN INC INC VISIT ASSESS & MGMT PT THERAPEUT 36083 SIKHDanay RODRIGUES IC 6 [facility] PROPHYLAC MEDICAL TIC/DX GROUP INJECTION SUBQ/IM INJECTION J3301 [facility] LILIA 6 [facility] TRIAMCINO MEDICAL LONE GROUP [place] [address] [place] [address] [place] [facility] CERVICAL 6 MEDICAL JANET SPINE W/[place] [address] [place] [facility] HEAD/BRAI 6 MEDICAL JANET N W/O IMAGING CONTRAST ASS MATERIAL RADEX HIP 22792 [place] BEINEKE 6 MEDICAL [place]ILATERA IMAGING L WITH ASS PELVIS 2-3 VIEWS CHEMODERV 92669 [facility] TOÑITO ATE 6 [facility] FACIAL/TR MEDICAL IGEM/CERV GROUP MUSC MIGRAINE BOTULINUM J0585 [facility] TOÑITO TOXIN 6 [facility] TYPE A MEDICAL PER UNIT GROUP OPHTH 72847 [facility] 6 GRE GRE XM&EVAL COMPRE NEW PT 1/> VST COMPREHEN 65810 LAB DEV[facility] LAB DEVENDRA SIVE 6 [facility] METABOLIC [place] [address] LAB DEVENDRA LAB DEVENDRA THYROID 6 [facility] STIMULATI HOLDINGS HOLDINGS NG HORMONE TSH BLOOD 30784 LAB DEV[facility]DRA LAB DEVENDRA COUNT 6 [facility] COMPLETE HOLDINGS HOLDINGS AUTO&AUTO DIFRNTL WBC LIPID 60704 LAB [facility] LAB DEVENDRA PANEL 6 [facility] HOLDINGS HOLDINGS PRESSURIZ 14340 MEHRAN LAURENT ED/NONPRE 6 [facility] SSURIZED INC INC INHALATIO N TREATMENT INJECTION J1040 MEHRAN SHARMA 5 [facility] DNISOLONE ACETATE 80 MG INJECTION J0696 MEHRAN SHARMA [address] [place] [address] NE SODIUM PER 250 MG THERAPEUT 79807 MEHRAN SHARMA IC 5 [facility] TIC/DX INJECTION SUBQ/IM CHEMODERV 20581 [facility] TOÑITO ATE 5 [facility] FACIAL/TR MEDICAL IGEM/CERV GROUP MUSC MIGRAINE BOTULINUM J0585 [facility] TOÑITO TOXIN 5 [facility] TYPE A MEDICAL PER UNIT GROUP ECHO 72665 CAROLE MEYER [facility] R-T 5 MEDICAL GABRIEL SERV W/WOM-MOD FOUNDATIO E COMPL N SPEC&COLR D OBSERVATI 07818 [facility] ON CARE 5 PHYSICIAN FEDE DISCHARGE S GROUP MANAGEMEN T CREATINE 95442 MEHRAN LAURENT KINASE 5 [facility] TOTAL INC INC [facility] G0378 MEHRAN LAURENT OBSERVATI 5 [facility] ON INC INC SERVICE PER HOUR COLLECTIO 54117 MEHRAN LAURENT N VENOUS 5 [facility] BLOOD INC INC VENIPUNCT URE COMPREHEN 16413 MEHRAN LAURENT SIVE 5 [facility] METABOLIC INC INC PANEL CREATINE 15375 MEHRAN LAURENT KINASE MB 5 [facility] FRACTION INC INC ONLY BLOOD 86810 MEHRAN LAURENT COUNT 5 [facility] COMPLETE INC INC AUTO&AUTO DIFRNTL WBC NONINVASI 25540 MEHRAN LAURENT VE 5 [facility] EAR/PULSE INC INC OXIMETRY SINGLE DETER INITIAL 65083 [facility] 5 [facility] MAT CARE/DAY CONSULTAN 50 [place] [address] MEHRAN LAURENT TROPONIN 5 [facility] QUANTITAT INC INC [place] HEMOGLOBI 96019 MEHRAN LAURENT N 5 [facility] GLYCOSYLA INC INC KARLA A1C BLOOD 21225 MEHRAN LAURENT COUNT 5 [facility] COMPLETE INC INC AUTO&AUTO DIFRNTL WBC ECG 14907 MEHRAN TORRES JR ROUTINE 5 [facility] W/LEAST P 12 LDS I&R ONLY URNLS DIP 46467 MEHRAN LAURENT 5 [facility] STICK/TAB INC INC [place] [address] MEHRAN LAURENT TROPONIN 5 [facility] QUANTITAT INC INC [place] INITIAL [address] [facility] JAROD OBSERVATI 5 PHYSICIAN FEDE ON S GROUP CARE/DAY 50 MINUTES THERAPEUT 38120 MEHRAN LAURENT IC 5 [facility] INJECTION INC INC IV PUSH EACH NEW DRUG NONINVASI 72600 MEHRAN LAURENT VE 5 [facility] EAR/PULSE [place] [address] MEHRAN LAURENT ANGIOGRAP 5 [facility] HY CHEST INC INC W/CONTRAS T/NONCONT [facility] G0378 MEHRAN LAURENT OBSERVATI 5 [facility] ON INC INC SERVICE PER HOUR COMPREHEN 94673 MEHRAN LAURENT SIVE 5 [facility] METABOLIC INC INC PANEL CREATINE 76769 MEHRAN LAURENT KINASE MB 5 [facility] FRACTION INC INC ONLY LOCM Q9967 MEHRAN LAURENT 300-399 5 [facility] MG/ML INC INC IODINE CONCENTRA TION PER ML COLLECTIO 67631 MEHRAN LAURENT N VENOUS 5 [facility] BLOOD INC INC VENIPUNCT URE FIBRIN 36809 MEHRAN HEON DGRADJ 5 [facility] PRODUCTS INC INC D-DIMER QUAL/SEMI TACO THER 00226 MEHRAN LAURENT PROPH/DX 5 [facility] NJX IV INC INC PUSH SINGLE/1S T SBST/DRUG ECG 30712 MEHRAN LAURENT ROUTINE 5 [facility] ECG INC INC W/LEAST 12 LDS TRCG ONLY W/O I&R CREATINE 84216 MEHRAN LAURENT KINASE 5 [facility] TOTAL INC INC URINE 44201 MEHRAN LAURENT 5 [facility] TEST INC INC VISUAL COLOR CMPRSN [place] RADIOLOGI 12683 MEHRAN LAURENT C 5 [facility] EXAMINATI INC INC ON CHEST SINGLE VIEW FRONTAL IM ADM 98146 JUDD PARKS JOCELIN PRQ ID 5 HEALTH SUBQ/IM MEDICAL NJXS 1 GROUP VACCINE IIV3 VACC 38269 JUDD PARKS JOCELIN 5 HEALTH PRESERVAT MEDICAL [place] FREE GROUP 0.5 ML DOSAGE IM USE THERAPEUT [address] IC 5 [facility] TIC/DX INJECTION SUBQ/IM INJECTION J[address] 5 [facility] DNISOLONE ACETATE 40 MG RADEX 31359 MEHRAN LAURENT SPINE 5 [facility] LUMBOSACR INC INC AL MINIMUM 4 VIEWS CHEMODERV 82558 [facility] TOÑITO ATE 5 [facility] FACIAL/TR MEDICAL IGEM/CERV GROUP [facility] MIGRAINE BOTULINUM J0585 [facility] TOÑITO TOXIN 5 [facility] TYPE A MEDICAL PER UNIT GROUP INJECTION J1885 [facility] MORRIN 5 [facility] [place] INE PER 15 MG CULTURE 44822 LAB DEV[facility]DRA LAB DEVENDRA BACTERIAL 5 [employer] HOLDINGS HOLDINGS QUANTTATI VE COLONY COUNT URINE INJECTION J3301 [facility] MORRIN 5 [facility] TRIAMCINO MEDICAL LONE GROUP ACETONIDE NOS 10 MG SUSCEPTIB 87711 LAB DEV[facility] LAB DEVENDRA LTY STDY 5 [facility] ANTIMICRB HOLDINGS HOLDINGS IAL MICRO/AGA R DILUTJ INJECTION J1885 JUDD PARKS JOCELIN 5 [facility] [place] INE PER 15 MG CULTURE 14696 LAB DEV[facility]DRA LAB DEVENDRA BACTERIAL 5 [facility] HOLDINGS HOLDINGS QUANTTATI VE COLONY COUNT URINE CULTURE 98343 LAB DEVENDRA LAB DEVENDRA BCT 5 [facility] ISOL&PRSM HOLDINGS HOLDINGS PTV ID ISOLATE EA URINE CUL BACT 57447 LAB DEVENDRA LAB EDVENDRA AEROBIC 5 [facility] ADDL HOLDINGS HOLDINGS METHS DEFINITIV E EA ISOL MRI 81822 [place] [facility] SPINAL 5 MEDICAL JANET CANAL IMAGING LUMBAR ASS W/O CONTRAST MATERIAL 3D 82904 [place] [facility] RENDERING 5 MEDICAL JANET W/INTERP IMAGING & ASS POSTPROCE SS SUPERVISI ON OPHTH 57062 [employer] 5 MEDICAL CLA XM&EVAL SERV INTERMEDI FOUNDATIO ATE ESTAB N PT BASIC 25760 [facility] METABOLIC 5 Y Y PANEL [facility] CALCIUM TOTAL THROMBOPL 58421 [facility] ASTIN 5 Y Y TIME [facility] PARTIAL PLASMA/WH OLE BLOOD RADIOLOGI 87976 [facility] 5 [facility] ON CHEST SINGLE VIEW FRONTAL ECG 58646 [facility] ROUTINE 5 [facility] ECG HOSP HOSP W/LEAST 12 LDS TRCG ONLY W/O I&R GROUND A0425 [facility] MERCURY MILEAGE 5 AMBULANCE AMBULANCE PER SERV DIRECTOR SOCIAL WELFARE SERV DIRECTOR SOCIAL WELFARE STATUTE R R MILE BLOOD 47848 [facility] COUNT 5 Y Y [facility] [place] [address] [facility]EN[facility]AL CENTRAL TROPONIN 5 SI[facility] QUANTITAT HOSP HOSP [place] ECG [address] [place] [facility] ROUTINE 5 MEDICAL ECG SERV W/LEAST FOUNDATIO 12 LDS N I&R ONLY INJECTION J2550 [facility] 5 Y Y [facility] INE HCL UP TO 50 MG THER 60496 [facility] PROPH/DX 5 Y Y NJX IV HOSPITAL HOSPITAL PUSH SINGLE/1S T SBST/DRUG PROTHROMB 38855 [facility] 5 [place] [facility] [place] [place] [address] [facility] THERAPY 5 [facility] PROPHYLAX HOSP HOSP IS/DX CONCURREN T NFS COLLECTIO 16474 [facility] N VENOUS 5 [facility] BLOOD [facility]OSP HOSP VENIPUNCT URE COMPREHEN 67170 [facility] SIVE 5 [facility] [place] [address] [facility] AMYLASE 5 [facility] NONINVASI 31376 [facility] VE 5 [facility] EAR/PULSE HOSP HOSP OXIMETRY MULTIPLE DETER INJECTION J2550 [facility] 5 [facility] PROMETHAZ HOSP HOSP INE HCL UP TO 50 [place] [address] [facility] LIPASE 5 [facility]OSP FIBRIN 64703 [facility] DGRADJ 5 [facility] PRODUCTS HOSP HOSP D-DIMER QUANTITAT [place] PROTHROMB 51860 [facility] IN TIME 5 [facility] ECG 98726 [facility] ROUTINE 5 [facility] ECG [facility]OSP HOSP W/LEAST 12 LDS TRCG ONLY W/O I&R INJECTION J2270 [facility] MORPHINE 5 [facility] SULFATE [facility]OS[facility] HOSP [place] 10 [place] [address] [facility] INFUSION 5 [facility] THERAPY/P HOSP HOSP ROPHYLAXI S /DX 1ST TO 1 HR THERAPEUT 60521 [facility] IC 5 [facility] INJECTION HOSP HOSP IV PUSH EACH NEW DRUG NATRIURET 95349 [facility] IC 5 [facility] [place] [address] [facility] TROPONIN 5 [facility] QUANTITAT [facility] [place] BLOOD 30394 [facility] COUNT 5 [facility] COMPLETE HOSP HOSP AUTO&AUTO DIFRNTL WBC GROUND A0425 [facility] MILEAGE 5 AMBULANCE AMBULANCE [place] [address] [facility] INFUSION 5 [facility] THERAPY HOSP HOSP PROPHYLAX IS/DX EA HOUR THER 03746 [facility] PROPH/DX 5 [facility] NJX EA HOSP HOSP SEQL IV PUSH SBST/DRUG FAC THROMBOPL 63062 [facility] ASTIN 5 [facility] TIME HOSP HOSP PARTIAL PLASMA/WH OLE BLOOD RADIOLOGI 25462 [facility] BRIGHT C 5 RADIOLOGY III JAM EXAMINATI ASSOC ON CHEST SINGLE VIEW FRONTAL AMB A0427 [facility] SERVICE 5 AMBULANCE AMBULANCE ALS SERVICE SERVICE EMERGENCY TRANSPORT LEVEL 1 CRITICAL 27939 [facility] CARE 5 EMERGENCY ILL/INJUR PHYS PSC ED PATIENT INIT 30-74 MIN INJECTION J1885 JUDD PARKS JOCELIN 5 [facility] INE PER 15 MG THERAPEUT 86234 JUDD PARKS JOCELIN IC 5 [facility] PROPHYLAC MEDICAL TIC/DX GROUP INJECTION SUBQ/IM DETERMINA 88041 CAROLE RODRIGUEZ TION 5 MEDICAL MEGAN REFRACTIV SERV E STATE FOUNDAT[facility] N OPHTH 44666 CAROLE MICHAEL MEDICAL 5 MEDICAL MEGNA XM&EVAL SERV COMPRHNSV FOUNDATIO ESTAB PT N 1/> CHEMODERV 80805 [facility] TOÑITO ATE 5 HEALTH MA[facility]ICE FACIAL/TR MEDICAL IGEM/CERV GROUP [facility] MIGRAINE DIAGNOSTI G0206 [place] ALYCE C 5 MEDICAL JANET MAMMOGRAP IMAGING HY INCL ASS CAD [place]; [place] [address] [facility], PICKLESIM SURG 5 [facility] PATHOLOGY GROSS&[place] [address] [facility] LAUR[facility] INFUSION 5 [facility] THERAPY/P INC INC ROPHYLAXI S /DX 1ST TO 1 HR EGD 11408 CAROLE CANDELARIA ANT TRANSORAL 5 MEDICAL BIOPSY SERV SINGLE/MU FOUNDATIO LTIPLE N CUL 18762 [facility] LAURENT PRSMPTV 5 [facility] PTHGNC INC INC ORGANISMS SCR DNS CHART SPECIAL 47926 [facility], PICKLESIM STAIN 5 LLC ER JR YEE GROUP 1 [place]CRO[place] NISMS I&[place] [address] [facility] INFUSION 5 [facility] THERAPY INC INC PROPHYLAX IS/DX EA HOUR 25 16087 [facility] HYDROXY 5 [facility] INCLUDES INC INC FRACTIONS IF PERFORMED BLOOD 36791 [facility] COUNT 5 [facility] COMPLETE INC INC AUTO&AUTO DIFRNTL WBC COLLECTIO 84938 [facility] N VENOUS 5 [facility] BLOOD INC INC VENIPUNCT URE COMPREHEN 69656 [facility] SIVE 5 [facility] METABOLIC INC INC PANEL [place] OF 06611 [facility]ENT THYROID 5 [facility] STIMULATI INC INC NG HORMONE TSH CHEMODERV 51806 [facility] TOÑITO ATE 5 [facility] FACIAL/TR MEDICAL IGEM/CERV GROUP MUSC MIGRAINE RADIOLOGI 44268 MEHRAN LAURENT C 4 [facility] EXAMINATI INC INC ON CHEST SINGLE VIEW FRONTAL ECG 69842 MEHRAN DENT ROUTINE 4 [facility] W/LEAST P 12 LDS I&[place] [address] MEHRAN LAURENT TROPONIN 4 [facility] QUANTITAT INC INC [place] URNLS DIP 02387 ME[facility]AN LAURENT 4 [facility] STICK/TAB INC INC LET REAGENT AUTO MICROSCOP Y BLOOD 20474 MEHRAN LAURENT COUNT 4 [facility] COMPLETE INC INC AUTO&AUTO DIFRNTL WBC CREATINE 97744 MEHRAN LAURENT KINASE 4 [facility] TOTAL INC INC ECG 22850 MEHRAN LAURENT ROUTINE 4 [facility] ECG INC INC W/LEAST 12 LDS TRCG ONLY W/O I&R COMPREHEN 36213 MEHRAN LAURENT SIVE 4 [facility] METABOLIC INC INC PANEL CREATINE 78888 MEHRAN LAURENT KINASE MB 4 [facility] FRACTION INC INC ONLY DIAGNOSTI G0206 [facility]AN LAURENT C 4 [facility] MAMMOGRAP INC INC HY INCL CAD WHEN PERF; UNI US BREAST 52605 MEHRAN LAURENT REAL 4 [facility] TIME INC INC W/IMAGE DOCUMENTA TION SWALLOWIN 55021 AMARILIS Veloz FUN 4 RADIOLOGY W/CINERAD ASSOC IOGRAPY/V IDRADIOG [facility]- 05964 MEHRAN LAURENT AIDED 4 [facility] DETECTION INC INC SCREENING MAMMOGRAP HY SCREENING G0202 MEHRANZOYA LAURENT 4 [facility] MAMMOGRAP INC INC HY JOSELIN INCL CAD WHEN PERFORMD GASTRIC 67340 MEHRAN LAURENT EMPTYING 4 [facility] IMAGING INC INC STUDY TECHNETIU A9541 MEHRAN Amor TC-99M 4 [facility] SULFUR INC INC COLLOID DX UP TO 20 MCI LARYNGOSC [address] [facility] VJ OPY 4 PHYSICIAN FRA FLEXIBLE S GROUP DIAGNOSTI C INJECTION 64886 [facility] TOÑITO 4 NEUROLOGY [facility] SINGLE/ML CENTER T TRIGGER [place] POINT 3/> MUSCLES INJECTION 50485 [facility] TOÑITO 4 NEUROLOGY [facility] ANESTHETI CENTER C AGENT [facility] NRV INJECTION J1030 [facility] TOÑITO 4 NEUROLOGY [facility] METHYLPRE CENTER DNISOLONE [place] ACETATE 40 [place] [address] MEHRAN LAURENT HPYLORI 4 [facility] INC INC SPECIAL 32327 [facility] GARCIA STAIN 4 [facility] GROUP 1 MICROORGA NISMS I&[place] [address] [facility], GARCIA SURG 4 [facility] PATHOLOGY GROSS&FEDE ROSCOPIC EXAM EGD [address] [facility] SUJATHA SHAH TRANSORAL 4 PHYSICIAN MILY BIOPSY S GROUP SINGLE/MU LTIPLE INJECTION J1100 [facility] TOÑITO 4 NEUROLOGY [facility] DEXAMETHO CENTER SONE [place] SODIUM PHOSPHATE 1 MG ARTHROCEN 36213 [facility] TOÑITO TESIS 4 NEUROLOGY [facility] ASPIR&/IN CENTER J MAJOR KORINA JT/BUR[place] W/[place] [address] MEHRAN LAURENT TRANSVAGI 4 [facility] NAL INC INC 25 50265 LABORATOR LABORATOR HYDROXY 4 Y Y INCLUDES CORPORATI CORPORATI FRACTIONS [place] [address] LABORATOR LABORATOR FERRITIN 4 Y Y CORPORATI [place] [address] LABORATOR LABORATOR IRON 4 Y Y CORPORATI CORPORATI ON OF AM ON OF AM LIPID 80075 LABORATOR LABORATOR PANEL 4 Y Y CORPORATI CORPORATI ON OF AM ON OF AM GENERAL 29018 LABORATOR LABORATOR HEALTH 4 Y Y PANEL CORPORATI CORPORATI ON OF AM ON OF AM CYTP 69673 LABORATOR LABORATOR CERV/VAG 4 Y DEVENDRA OF Y DEVENDRA OF AUTO THIN MANISH MANISH LAYER H H PREP MNL SCREEN THERAPEUT 52437 [facility] CALLUM IC 4 [facility] PROPHYLAC MEDICAL TIC/DX GROUP INJECTION SUBQ/IM INJECTION J3301 [facility] CALLUM 4 [facility] TRIAMCINO MEDICAL LONE GROUP ACETONIDE NOS 10 MG TENS E0720 EMPI INC EMPI INC DEVICE 4 TWO LEAD LOCALIZED STIMULATI ON TENS E0730 EMPI INC EMPI INC DEVICE 4 4/MORE LEADS MULTI NERVE STIMULATI ON CULTURE 28365 LAB DEVENDRA LAB DEVENDRA BACTERIAL 4 MANISH MANISH HOLDINGS HOLDINGS QUANTTATI VE COLONY COUNT URINE 25 88542 LAB DEVENDRA LAB DEVENDRA HYDROXY 4 MANISH MANISH INCLUDES HOLDINGS HOLDINGS FRACTIONS IF PERFORMED CYANOCOBA 09720 LAB DEVENDRA LAB DEVENDRA DAVID 4 MANISH MANISH VITAMIN HOLDINGS HOLDINGS B-12 HEMOGLOBI 76911 LAB DEVENDRA LAB DEVENDRA N 4 MANISH MANISH GLYCOSYLA HOLDINGS [place] [address] LAB DEVENDRA LAB DEVENDRA TRIIODOTH 4 MANISH MANISH YRONINE HOLDINGS HOLDINGS T3 FREE THERAPEUT 85618 CALLUM CALLUM IC 4 [facility] PROPHYLAC TIC/DX INJECTION SUBQ/IM INJECTION J3301 CALLUM CALLUM 4 [facility] TRIAMCINO LONE ACETONIDE NOS 10 [place] [address] LAB DEVENDRA LAB DEVENDRA THYROID 4 MANISH MANISH STIMULATI HOLDINGS [place] [address] LAB DEVENDRA LAB DEVENDRA FREE 4 MANISH MANISH [place] [address] LAB DEVENDRA LAB DEVENDRA IRON 4 MANISH MANISH HOLDINGS HOLDINGS INJ J0702 FAYE MCKINNEY BETAMETHA 4 MAX MAX SONE ACETATE & PHOSPHATE 3 MG PHYSICAL 75746 [facility] THERAPY 4 [facility] EVALUATIO HOSP HOSP N TENS E0730 EMPI INC EMPI INC DEVICE 4 4/MORE LEADS MULTI NERVE STIMULATI ON MANUAL 43932 CROSSFIEL CROSSFIEL THERAPY 4 D KOLBY D KOLBY TQS 1/> REGIONS EACH 15 MINUTES THERAPEUT 36788 CROSSFIEL CROSSFIEL IC PX 1/> 4 D KOLBY D KOLBY AREAS EACH 15 MIN EXERCISES THERAPEUT 15967 CROSSFIEL CROSSFIEL IC PX 1/> 4 D KOLBY D KOLBY AREAS EACH 15 MIN EXERCISES MANUAL 46370 CROSSFIEL CROSSFIEL THERAPY 4 D KOLBY D KOLBY TQS 1/> REGIONS EACH 15 MINUTES THERAPEUT 49514 CROSSFIEL CROSSFIEL IC PX 1/> 4 D KOLBY D KOLBY AREAS EACH 15 MIN EXERCISES MANUAL 81259 CROSSFIEL CROSSFIEL THERAPY 4 D KOLBY D KOLBY TQS 1/> REGIONS EACH 15 MINUTES MANUAL 57665 CROSSFIEL CROSSFIEL THERAPY 4 D KOLBY D KOLBY TQS 1/> REGIONS EACH 15 MINUTES MANUAL 75695 CROSSFIEL CROSSFIEL THERAPY 4 D KOLBY D KOLBY TQS 1/> REGIONS EACH 15 MINUTES MANUAL 87721 CROSSFIEL CROSSFIEL THERAPY 4 D KOLBY D KOLBY TQS 1/> REGIONS EACH 15 MINUTES MANUAL 50248 CROSSFIEL CROSSFIEL THERAPY 4 D KOLBY D KOLBY TQS 1/> REGIONS EACH 15 MINUTES PHYSICAL 82088 PROFESSIO CROSSFIEL THERAPY 4 NAL REHAB D KOLBY EVALUATIO ASSOC N PSC DRUG SCR G0434 MARII HAM MARII HAM NOT 4 CHROMATOG RAPHIC; ANY NUMBER PT ENC MRI 59653 MEHRAN LAURENT SPINAL 4 [facility] CANAL INC INC CERVICAL W/O CONTRAST MATRL 3D 86402 MEHRAN LAURENT RENDERING 4 [facility] W/INTERP INC INC & POSTPROCE SS SUPERVISI ON MRI 70576 MEHRAN LAURENT SPINAL 4 [facility] CANAL INC INC LUMBAR W/[place] [address] MEHRAN LAURENT HYDROXYIN 4 [facility] DOLACETIC [place] ACID 5-[place] [address] MEHRAN LAURENT VANILLYLM 4 [facility] ANDELIC INC INC ACID URINE METANEPHR 84400 MEHRAN LAURENT PHIL 4 [place] [address] MEHRAN LAURENT ALDOSTERO 4 [place] [address] MEHRAN LAURENT TRANSVAGI 4 MEM [facility] NAL INC INC INJ J0702 FAYE FAYE BETAMETHA 4 MAX MAX SONE ACETATE & PHOSPHATE 3 MG THERAPEUT 93304 CALLUM LEONARDM IC 4 WHI WHI PROPHYLAC TIC/DX INJECTION SUBQ/IM INJECTION J3301 CALLUM CALLUM 4 WHI WHI TRIAMCINO LONE ACETONIDE NOS 10 MG COLLECTIO 70965 [facility] N VENOUS 3 [facility] BLOOD HOSP HOSP VENIPUNCT URE COMPREHEN 69085 [facility] SIVE 3 SI[facility] [place] [address] [facility] AMYLASE 3 [facility] [place] [address] [facility] LIPASE 3 [facility] HOSP HOSP PROTHROMB 50438 [facility] IN TIME 3 [facility] [place] [facility] [place] BOARD ECG 11936 [facility] ROUTINE 3 [facility] ECG HOSP HOSP W/LEAST 12 LDS TRCG ONLY W/O I&R THROMBOPL 41222 [facility] ASTIN 3 [facility] [place] MR TIME HOSP REG BOARD PARTIAL PLASMA/WH OLE BLOOD RADIOLOGI 78543 [facility] C 3 [facility] EXAMINATI HOSP HOSP ON CHEST SINGLE VIEW FRONTAL NATRIURET 29091 [facility] IC 3 [facility] [place] [address] [facility] TROPONIN 3 [facility] QUANTITAT HOSP HOSP [place] BLOOD 50843 [facility] COUNT 3 [facility] COMPLETE HOSP HOSP AUTO&[place] [address] [facility]AL [facility] ANGIOGRAP 3 RADIOLOGY RADIOLOGY HY CHEST ASSOC ASSOC W/CONTRAS T/NONCONT RAST GROUND A0425 [facility] MIKHAIL ELIZONDO PER CO EMS CO EMS STATUTE [facility] A0427 [facility] 3 MIKHAIL ELIZONDO ALS CO EMS CO EMS EMERGENCY TRANSPORT LEVEL 1 Encounters Encounter Start End Date Code Location Performer Type Date OFFICE 98812 LUDMILA KEYS OUTPATIEN 7 7 T VISIT 15 MINUTES [facility] MEHRAN - 7 7 [facility] OUTPATIEN INC T OFFICE 65189 MEHRAN OUTPATIEN 7 7 [facility] T VISIT INC 10 MINUTES [facility] MEHRAN - 7 7 [facility] OUTPATIEN INC T [facility] MEHRAN - 7 7 [facility] OUTPATIEN INC T OFFICE 48857 [facility] OUTPATIEN 7 7 ORTHOPEDI T NEW 45 C MINUTES ASSOCIAT OFFICE 21530 ALEX JOHNSON OUTPATIEN 7 7 T VISIT 15 MINUTES OFFICE 98328 [facility] CONSULTAT 7 7 N ION NEUROLOGY NEW/ESTAB PATIENT 60 MIN OFFICE 31377 [facility] CLEVE OUTPATIEN 7 7 HEALTH T VISIT MEDICAL 25 GROUP MINUTES [facility] - 7 7 N OUTPATIEN COMMUNTIY T HOSPITA OFFICE 17999 [facility] CLEVE OUTPATIEN 7 7 HEALTH T VISIT MEDICAL 25 GROUP MINUTES [facility] MEHRAN - 7 7 [facility] OUTPATIEN INC T OFFICE 75038 MEHRAN OUTPATIEN 7 7 MEM [facility] T VISIT INC 10 MINUTES OFFICE 68249 MEHRAN OUTPATIEN 7 7 [facility] T VISIT INC 10 MINUTES HOSPITAL [facility]HRAN - 7 7 [facility] OUTPATIEN INC T OFFICE [address] [facility] SUJATHA SHAH OUTPATIEN 7 7 PHYSICIAN T VISIT S GROUP 15 MINUTES OFFICE 22635 CAROLE MOLINAE OUTPATIEN 7 7 MEDICAL HERRERA T VISIT SERV 25 FOUNDATIO MINUTES N HOSPITAL MEHRAN - 7 7 [facility] OUTPATIEN INC T [facility]OSPITAL MEHRAN - 7 7 [facility] OUTPATIEN INC T OFFICE [address] [facility] ALLKEVEN OUTPATIEN 7 7 PHYSICIAN T VISIT S GROUP 15 MINUTES HOSPITAL MEHRAN - 7 7 [facility] OUTPATIEN INC T OFFICE 19672 PAVAN BUX OUTPATIEN 7 7 MD ERVIN, T VISIT PSC 10 MINUTES HOSPITAL MEHRAN - 7 7 [facility] OUTPATIEN INC T EMERGENCY 42663 MARAL GARCIA DEPT 7 7 PHYSICIAN VISIT S, [facility] HIGH SEVERITY& THREAT FUNJ EMERGENCY 03283 MEHRAN 7 7 [facility] DEPARTMEN INC T VISIT HIGH/URGE NT SEVERITY HOSPITAL ME[facility]AN - 7 7 [facility] OUTPATIEN INC T HOSPITAL [facility]HRAN - 7 7 [facility] OUTPATIEN INC T OFFICE [address] [facility] ANDREW MCCRACKENPATIEN 7 7 PHYSICIAN OGHADDAM T VISIT S GROUP 15 MINUTES HOSPITAL MEHRAN - 6 6 [facility] OUTPATIEN INC T OFFICE 94633 PAVAN BAKARIX OUTPATIEN 6 6 MD ERVIN, T VISIT PSC 10 MINUTES HOSPITAL MEHRAN - 6 6 [facility] OUTPATIEN INC T OFFICE 07372 [place] CONSULTAT 6 6 MEDICAL ION SERV NEW/ESTAB FOUNDATIO PATIENT N 30 MIN HOSPITAL MEHRAN - 6 6 [facility] OUTPATIEN INC T HOSPITAL MEHRAN - 6 6 [facility] OUTPATIEN INC T OFFICE 98178 SIKHDanay CHIU OUTPATIEN 6 6 HEALTH T VISIT MEDICAL 15 GROUP MINUTES OFFICE 98604 MEHRAN OUTPATIEN 6 6 [facility] T VISIT INC 10 MINUTES OFFICE 48945 PAVAN PINO OUTPATIEN 6 6 MD ERVIN, T VISIT PSC 15 MINUTES HOSPITAL MEHRAN - 6 6 [facility] OUTPATIEN INC [facility] MEHRAN - 6 6 [facility] OUTPATIEN INC T OFFICE 67552 [facility] SAMIA KIM OUTPATIEN 6 6 NURSE T VISIT PRACTITIO 15 NER GR MINUTES EMERGENCY 79920 MEHRAN 6 6 [facility] DEPARTMEN INC T VISIT LOW/MODER SEVERITY HOSPITAL ME[facility]AN - 6 6 [facility] OUTPATIEN INC [facility] N OUTPATIEN COMMUNTIY T HOSPITA OFFICE [address] [facility] ANDREW OUTPATIEN 6 6 PHYSICIAN TAWANNA T VISIT S GROUP 15 MINUTES OFFICE 64528 MEHRAN OUTPATIEN 6 6 [facility] T VISIT INC 10 MINUTES HOSPITAL MEHRAN - 6 6 [facility] OUTPATIEN INC T OFFICE 64116 [facility] SAMIA KIM OUTPATIEN 6 6 NURSE T NEW 30 PRACTITIO MINUTES NER GR OFFICE 59875 [facility] MORRIN OUTPATIEN 6 6 HEALTH T VISIT MEDICAL 15 GROUP MINUTES OFFICE 82590 MEHRAN OUTPATIEN 6 6 MEM [facility] T VISIT INC 10 MINUTES OFFICE 86623 PAVAN MONTANO OUTPATIEN 6 6 MD ERVIN, T VISIT PSC 15 MINUTES HOSPITAL MEHRAN - 6 6 [facility] OUTPATIEN INC T HOSPITAL MEHRAN - 6 6 [facility] OUTPATIEN INC T OFFICE 47183 JOSE GO TRA OUTPATIEN 6 6 T VISIT ORTHOPAED 15 ICS PSC MINUTES OFFICE 22400 JUDD RODRIGUES OUTPATIEN 6 6 HEALTH T VISIT MEDICAL 15 GROUP MINUTES HOSPITAL MEHRAN - 6 6 [facility] OUTPATIEN INC T OFFICE 70120 JOSE GO OUTPATIEN 6 6 T VISIT ORTHOPAED 15 ICS PSC MINUTES OFFICE 98626 MEHRAN OUTPATIEN 6 6 MEM [facility] T VISIT INC 10 MINUTES OFFICE 65337 PAVAN MONTANO OUTPATIEN 6 6 MD ERVIN, T VISIT PSC 15 MINUTES HOSPITAL MEHRAN - 6 6 [facility] OUTPATIEN INC T OFFICE 54896 MEHRAN DE LA O OUTPATIEN 6 6 [facility] T VISIT HOSPITAL 15 MINUTES OFFICE 88373 CAROLE ESCAMILLA OUTPATIEN 6 6 MEDICAL PAD T VISIT SERV 25 FOUNDATIO MINUTES [facility] MEHRAN - 6 6 MEM [facility] OUTPATIEN INC T OFFICE 01832 MEHRAN OUTPATIEN 6 6 MEM [facility] T VISIT INC 10 MINUTES OFFICE 08506 PAVAN MONTANO OUTPATIEN 6 6 MD ERVIN, T VISIT PSC 15 MINUTES OFFICE 05354 [facility] 6 Medicine HOLLY T NEW 45 MINUTES HOSPITAL BAPTISM - 6 6 [facility]OSPITAL OUTPATIEN [facility] OFFICE 54281 MEHRAN DE LA O OUTPATIEN 6 6 [facility] 15 MINUTES OFFICE 85675 JUDD RODRIGUES OUTPATIEN 6 6 HEALTH T VISIT MEDICAL 15 GROUP MINUTES OFFICE 76229 [facility] LILIA OUTPATIEN 6 6 HEALTH T VISIT MEDICAL 25 GROUP MINUTES OFFICE 07402 CAROLE JOHNSON OUTPATIEN 6 6 MEDICAL CLA T VISIT SERV 15 FOUNDATIO MINUTES N OFFICE [address] [facility] ANDREW OUTPATIEN 6 6 PHYSICIAN TAWANNA [facility] S [facility] JAL [facility] MEHRAN - 6 6 MEM HOSP OUTPATIEN INC T OFFICE 42558 PAVAN PINO [facility] OUTPATIEN 6 6 MD ERVIN, T [facility] 30 [facility] MEHRAN - 6 6 MEM [facility] OUTPATIEN INC T OFFICE 39723 MEHRANZYOA SHARMA OUTPATIEN 6 6 [facility] 15 MINUTES OFFICE 41700 JUDD RODRIGUES OUTPATIEN 6 6 HEALTH YANY T VISIT MEDICAL [address] [facility] MEHRAN - 6 6 MEM HOSP OUTPATIEN INC T OFFICE 80838 CAROLE RODRIGUEZ OUTPATIEN 6 6 MEDICAL MEGAN T VISIT SERV 15 FOUNDATIO MINUTES N OFFICE 46679 [facility] KENDRICK DAHL OUTPATIEN 6 6 HEALTH T VISIT MEDICAL 25 GROUP MINUTES OFFICE 45602 MEHRAN JIMENEZ [facility] OUTPATIEN 6 6 [facility] 15 MINUTES OFFICE 44824 MEHRAN [facility] OUTPATIEN 6 6 [facility] 15 [facility] MEHRAN - 6 6 MEM [facility] OUTPATIEN INC T EMERGENCY 48516 MARAL GARCIA 6 6 PHYSICIAN FOR DEPARTMEN S, [facility] T VISIT HIGH/URGE NT SEVERITY OFFICE 65214 MEHRAN SHARMA OUTPATIEN 5 5 [facility] 15 MINUTES EMERGENCY 30583 MARAL GRANT DEPT 5 5 PHYSICIAN U KOLBY VISIT S, PLLC HIGH SEVERITY& THREAT [facility] MEHRAN - 5 5 MEM H[facility] OUTPATIEN INC T OFFICE 65471 [facility] MORRIN OUTPATIEN 5 5 HEALTH YANY T VISIT MEDICAL 15 GROUP MINUTES OFFICE 67470 GASTROENT CASE JUS CONSULTAT 5 5 EROLOGY ION AND NEW/ESTAB HEPATOL PATIENT 60 MIN OFFICE [address] OUTPATIEN 5 5 [facility] 15 MINUTES OFFICE [address] [facility] SUJATHA JR OUTPATIEN 5 5 PHYSICIAN MILY T VISIT S GROUP 15 MINUTES OFFICE 84832 [facility] LIZETTRIN OUTPATIEN 5 5 HEALTH YANY T VISIT MEDICAL 25 GROUP MINUTES [facility] MEHRAN - 5 5 [facility] OUTPATIEN INC T OFFICE 33378 CAROLE RODRIGUEZ OUTPATIEN 5 5 MEDICAL MEGAN T VISIT SERV 10 FOUNDATIO MINUTES N OFFICE 46177 [facility] LIZETTRIN OUTPATIEN 5 5 HEALTH YANY T VISIT MEDICAL 15 GROUP MINUTES OFFICE 64298 [facility] KASEY MONREAL OUTPATIEN 5 5 HEALTH T VISIT MEDICAL 25 GROUP MINUTES OFFICE 43419 CAROLE JOHNSON OUTPATIEN 5 5 MEDICAL CLA T VISIT SERV 10 FOUNDATIO MINUTES N OFFICE 79967 [facility] TAYLOR CONSULTAT 5 5 HEALTH OFE ION MEDICAL NEW/ESTAB GROUP PATIENT 40 MIN OFFICE 18016 [place] TEAGAN ANT OUTPATIEN 5 5 MEDICAL T VISIT SERV 25 FOUNDATIO MINUTES N OFFICE 17590 [facility] APPLE OUTPATIEN 5 5 HEALTH ANT T VISIT MEDICAL 15 GROUP MINUTES HOSPITAL MEHRAN - 5 5 [facility] OUTPATIEN INC T EMERGENCY 11948 UNIVERSIT DEPT 5 5 Y VISIT HOSPITAL HIGH SEVERITY& THREAT FUN OFFICE 91651 [place] HANKS CONSULTAT 5 5 MEDICAL MAX ION SERV NEW/ESTAB FOUNDATIO PATIENT N 60 MIN HOSPITAL UNIVERSIT - 5 5 Y OUTPATIEN HOSPITAL T EMERGENCY 99183 CAROLE WHITE 5 5 MEDICAL SET DEPARTMEN SERV T VISIT FOUNDATIO HIGH/URGE N NT SEVERITY EMERGENCY 57173 CENTRAL DEPT 5 5 [facility] VISIT HOSP HIGH SEVERITY& THREAT [facility] CENTRAL - 5 5 SI[facility] OUTPATIEN HOSP T OFFICE 92090 [facility] KASEY MONREAL OUTPATIEN 5 5 HEALTH T VISIT MEDICAL 15 GROUP MINUTES OFFICE 99244 SI[facility] TOÑITO OUTPATIEN 5 5 HEALTH MAURICE T VISIT MEDICAL 15 GROUP MINUTES HOSPITAL MEHRAN - 5 5 [facility] OUTPATIEN INC T HOSPITAL MEHRAN - 5 5 [facility] OUTPATIEN INC T OFFICE 91338 [place] TEAGAN ANT OUTPATIEN 5 5 MEDICAL T VISIT SERV 25 FOUNDATIO MINUTES N HOSPITAL MEHRAN - 5 5 [facility] OUTPATIEN INC T OFFICE 85143 [place] TEAGAN ANT OUTPATIEN 5 5 MEDICAL T NEW 45 SERV MINUTES FOUNDATIO N OFFICE 41876 SI[facility] TOÑITO OUTPATIEN 5 5 HEALTH MAURICE T VISIT MEDICAL 15 GROUP MINUTES OFFICE [address] [facility] VJ OUTPATIEN 4 4 PHYSICIAN FRA T VISIT S GROUP 15 MINUTES HOSPITAL MEHRAN - 4 4 [facility] OUTPATIEN INC T EMERGENCY 83005 MEHRAN 4 4 MEM [facility]OS[facility] DEPARTMEN INC T VISIT MODERATE SEVERITY OFFICE [address] [facility] ALLKEVEN JR OUTPATIEN 4 4 PHYSICIAN MILY T VISIT S GROUP 15 MINUTES HOSPITAL MEHRAN - 4 4 MEM [facility] OUTPATIEN INC T OFFICE 33666 [facility] TOÑITO OUTPATIEN 4 4 NEUROLOGY MAURICE T VISIT CENTER 25 KORINA MINUTES HOSPITAL CENTRAL - 4 4 [facility] OUTPATIEN HOSP [facility] MEHRAN - 4 4 MEM [facility] OUTPATIEN INC T OFFICE 17387 SIMON CHIU OUTPATIEN 4 4 ANT T VISIT CARDIOLOG 15 Y AT [facility] MEHRAN - 4 4 MEM HOS[facility] OUTPATIEN INC T OFFICE 63305 FAYE MCKINNEY OUTPATIEN 4 4 MAX MAX T VISIT 15 MINUTES OFFICE [address] [facility] VJ OUTPATIEN 4 4 PHYSICIAN FRA T NEW 30 S GROUP MINUTES OFFICE [address] [facility] SUJATHA JR OUTPATIEN 4 4 PHYSICIAN MILY T VISIT S GROUP 15 MINUTES HOSPITAL MEHRAN - 4 4 MEM [facility] OUTPATIEN INC T OFFICE 25823 [facility] TOÑITO OUTPATIEN 4 4 NEUROLOGY MAURICE T VISIT CENTER 25 KORINA MINUTES OFFICE 49859 SIMON [place] OUTPATIEN 4 4 PROFESSOR OF LITERATURE CAROL ANN T NEW 30 ASSOCIATE MINUTES S, OFFICE 7[address] [facility] SUJATHA SHAH OUTPATIEN 4 4 PHYSICIAN MILY T NEW 30 S GROUP MINUTES HOSPITAL MEHRAN - 4 4 [facility] OUTPATIEN INC T OFFICE 66390 [facility] TOÑITO OUTPATIEN 4 4 NEUROLOGY MAURICE T VISIT CENTER 25 KOIRNA MINUTES PERIODIC 61931 CALLUM LEONARDM PREVENTIV 4 4 WHI WHI E MED EST PATIENT 40-64YRS OFFICE 64615 [facility] CALLUM OUTPATIEN 4 4 HEALTH WHI T VISIT MEDICAL 15 GROUP MINUTES OFFICE 45821 CALLUM CALLUM OUTPATIEN 4 4 WHI WHI T VISIT 25 MINUTES OFFICE 98758 APPLE CHIU OUTPATIEN 4 4 ANT ANT T VISIT 15 MINUTES OFFICE 02074 FAYE MCKINNEY OUTPATIEN 4 4 MAX MAX T VISIT 15 MINUTES HOSPITAL CENTRAL - 4 4 [facility] OUTPATIEN HOSP T OFFICE 93533 VASCELLO VASCELLO OUTPATIEN 4 4 GIANNI GIANNI T VISIT 25 MINUTES OFFICE 04301 APPLE CHIU OUTPATIEN 4 4 ANT ANT T VISIT 15 MINUTES OFFICE 56542 MARII HAM MARII HAM OUTPATIEN 4 4 T NEW 45 MINUTES OFFICE 33125 CALLUM CALLUM OUTPATIEN 4 4 I WHI T VISIT 15 MINUTES OFFICE 17521 GO TRA GO TRA OUTPATIEN 4 4 T VISIT 15 MINUTES OFFICE 41318 CALLUM CALLUM OUTPATIEN 4 4 WHI WHI T VISIT 25 MINUTES OFFICE 54309 APPLE CHIU OUTPATIEN 4 4 ANT ANT T VISIT 15 MINUTES HOSPITAL UN[facility]ERSIT - 4 4 [facility] OFFICE 40718 UNIVERSIT OUTPATIEN 4 4 Y T VISIT 5 HOSPITAL MINUTES HOSPITAL MEHRAN - 4 4 [facility] OUTPATIEN [facility] MEHRAN - 4 4 [facility] OUTPATIEN INC [facility]OSPITAL MEHRAN - 4 4 [facility] OUTPATIEN INC T OFFICE 86324 GO TRA GO TRA CONSULTAT 4 4 ION NEW/ESTAB PATIENT 60 MIN OFFICE 56228 APPLE CHIU OUTPATIEN 4 4 ANT ANT T VISIT 25 MINUTES OFFICE 30201 ARNOLD ARNOLD OUTPATIEN 4 4 MAX MAX T NEW 30 MINUTES OFFICE 43838 CALLUMMt LEONARDM OUTPATIEN 4 4 WHI WHI T VISIT 25 MINUTES Emergency AMI Villeda MD (ER) 3 22:53 3 00:33 [facility] CENTRAL - 3 3 [facility] OUTPATIEN HOSP T EMERGENCY 31301 NAZARETH 3 3 [facility] DEPARTMEN HOSP T VISIT MODERATE SEVERITY EMERGENCY 97660 NAZARETH ESPINOSA LEL DEPT 3 3 EMERGENCY VISIT PHYS PSC HIGH SEVERITY& THREAT FUNCJ Emergency AMI Dent MD (ER) 3 19:06 3 20:57 [facility] Emergency AMI SANCHEZ (ER) 3 21:25 3 01:44 [facility]
--- OUTSIDE RECORDS SUMMARY | 2017-07-01 21:36 | External Medical Summary Rpt ---
Author Author , MARLA GUTIÉRREZ Address Unknown Phone [email or web address] Care Team Providers Care Rcis Name Role Phone ALLRAN JR, ALLRAN JR Unavailable Unavailable ALLRAN JR MILY, ALLRAN Unavailable Unavailable JR MILY PAVAN MUELLER MD, PSC, Unavailable Unavailable PAVAN MUELLER MD, PSC ARNMALLY MAX, ARNOLD Unavailable Unavailable MAX ARNOLD MAX, ARNOLD Unavailable Unavailable MAX [facility] Unavailable Unavailable MEDICAL GROUP, [facility] Unavailable [facility] [place], [facility] BEINEKE, BEINEKE Unavailable Unavailable JIMENEZ TER, JIMENEZ TER Unavailable Unavailable BESSON OFE, BESSON Unavailable Unavailable OFE [facility] Unavailable Unavailable [facility] P[facility], [facility] SANTIAGO, SANTIAGO Unavailable Unavailable TEAGAN ANT, TEAGAN ANT Unavailable Unavailable MICHAEL, MICHAEL Unavailable Unavailable MICHAEL MEGAN, MICHAEL Unavailable Unavailable MEGAN [facility] Unavailable Unavailable SERVICE, [facility] Unavailable Unavailable SERVICE, [facility] BUX, BUX Unavailable Unavailable BUX ANJ, BUX ANJ Unavailable Unavailable [facility], Unavailable Unavailable LLC, [facility], Unavailable Unavailable LLC, [facility] Unavailable Unavailable CONSULTANTS O, [facility] CASE JUS, CASE JUS Unavailable Unavailable [facility], Unavailable Unavailable [facility] Unavailable Unavailable PHYS PSC, [...] CLA JAROD FEDE, JAROD Unavailable Unavailable FED[facility], [facility], Unavailable Unavailable [facility] Unavailable Unavailable EMS, [facility] EMS CALLUM WHI, CALLUM Unavailable Unavailable WHI CALLUM WHI, CALLUM Unavailable Unavailable I [facility] Unavailable Unavailable INC, [facility] Unavailable [facility]available [facility], [facility] Unavailable Unavailable HOSPITAL P, [facility], Unavailable Unavailable [facility] GO, GO Unavailable Unavailable GO TRA, GO TRA Unavailable Unavailable GO TRA, GO TRA Unavailable Unavailable ESPINOSA LEL, ESPINOSA LEL Unavailable Unavailable [facility] & Unavailable Unavailable [facility] ANNISTONS, [facility] TALHAMt SANCHEZ, KEIRA Unavailable Unavailable M DANIEL [facility] Unavailable Unavailable [facility], [facility] Unavailable Unavailable ASSOCIAT, [facility] TAYLOR OFE, TAYLOR Unavailable Unavailable [...] DWI, BRIAN Unavailable Unavailable JR DWI [facility] Unavailable Unavailable ASSOCIATES,, [facility], GARCIA MAX, GARCIA Unavailable Unavailable MAX [...] LUDMILA GRE HANKS MAX, HANKS Unavailable Unavailable [facility] Unavailable Unavailable SERV MOBILE MARKETING SPECIALIST R, [facility]ET[facility] SPECIALIST R [facility] Unavailable Unavailable SERV MOBILE MARKETING SPECIALIST R, [facility]BI[facility] MARKETING SPECIALIST R MONGIARDO FRA, Unavailable Unavailable MONGIARDO FRA MORRIN, MORRIN Unavailable Unavailable MORRIN YANY, MORRIN Unavailable Unavailable YANY [facility] Unavailable Unavailable BOARD, [facility] BOARD [facility], [...] Unavailable Unavailable [facility], [facility] Unavailable Unavailable Critical access hospital, Unavailable Unavailable [facility] VASCELLO GIANNI, Unavailable Unavailable VASCELLO GIANNI VASCELLO GIANNI, Unavailable Unavailable VASCELLO GIANNI WALKER, WALKER Unavailable Unavailable WALKER FOR, WALKER Unavailable Unavailable FOR HAROLDO SHIELDS Unavailable Unavailable HERRERA WHITE JUDY, WHITE JUDY Unavailable Unavailable Purpose Continuity of Care Document - 01-06-2013 through 2016 Problems Code Diagnosis DOS Provider Status [id number] OTHER 05-25-2017 [place] VITREOUS OPACITIES RIGHT EYE H538 OTHER 05-25-2017 [place] VISUAL DISTURBANCE S M5030 OTH 05-25-2017 [facility] [...] 05-06-2017 COMMUNITY UNSPECIFIED ANESTH OF THE BLUE [id number] ENCOUNTER 05-01-2017 [facility] FOR OTHER [facility] PREPROCEDUR INC AL EXAMINATION Z0100 ENCOUNTER 04-27-2017 [place] EXAM EYES & VISION W/O ABNORMAL FIND M7062 TROCHANTERI 04-20-2017 GRACE Kellogg B[facility]IS [facility]TH[facility]IC LEFT HIP ASSOCIAT E50073 LATTICE 04-15-2017 [place] DEGENERATIO N OF RETINA BILATERAL H5310 UNSPECIFIED 04-15-2017 [facility] SUBJECTIVE VISUAL DISTURBANCE S Q0700 ARNOLD-KEAGAN 04-15-2017 [facility] RI SYND W/O SPINA BIFIDA/HYDR OCEPHLUS T18538 MIGRAINE 04-09-2017 [facility] W/O AURA NEUROLOGY INTRACT W/O STAT MIGRAINOSUS G8929 OTHER 04-09-2017 [facility] CHRONIC [facility] PAIN MEDICAL GROUP J0140 ACUTE 04-09-2017 [facility] PANSINUSITI HEALTH S MEDICAL UNSPECIFIED GROUP M15609 PAIN IN 04-09-2017 [facility] LEFT HIP HEALTH MEDICAL GROUP R51 HEADACHE 04-09-2017 [facility] R600 LOCALIZED 04-09-2017 [facility] E039 HYPOTHYROID 04-02-2017 [facility] ISM HEALTH UNSPECIFIED MEDICAL GROUP J0100 ACUTE 04-02-2017 [facility] MAXILLARY HEALTH SINUSITIS MEDICAL UNSPECIFIED GROUP M549 DORSALGIA 04-02-2017 [facility] UNSPECIFIED HEALTH MEDICAL GROUP M5412 RADICULOPAT 03-16-2017 [facility] HY CERVICAL [facility] REGION INC M5416 RADICULOPAT 03-16-2017 [facility] HY LUMBAR [facility] REGION INC K3184 GASTROPARES 02-06-2017 [facility] D259 LEIOMYOMA 02-05-2017 [place] [facility]ICAL OF UTERUS SERV UNSPECIFIED FOUNDATION I10 ESSENTIAL 02-05-2017 [place] [facility] PRIMARY SERV HYPERTENSIO FOUNDATION N Y87152 UNSPECIFIED 02-05-2017 [place] [facility] OVARIAN SERV CYST RIGHT FOUNDATION SIDE V89486 UNSPECIFIED 02-05-2017 [place] [facility] OVARIAN SERV CYST [...] ANESTH OF THE BLUE K651 PERITONEAL 01-05-2017 [facility] ABSCESS PHYSICIANS GROUP G4719 OTHER 12-31-2016 [facility] [...] 12-11-2016 LAB DEVENDRA OF MANISH MICTURITION HOLDINGS Y73505 UNSPECIFIED 11-10-2016 [facility] OVARIAN [facility] CYST INC UNSPECIFIED SIDE M791 MYALGIA 10-17-2016 [facility] INC G909 DISORDER 09-30-2016 [facility] AUTONOMIC MEDICAL NERVOUS GROUP SYSTEM UNS R072 PRECORDIAL 09-30-2016 [facility] PAIN HEALTH MEDICAL GROUP E782 MIXED 09-26-2016 LAB DEVENDRA HYPERLIPIDE MANISH HERIBERTO HOLDINGS L94812 ENCOUNTER 09-26-2016 [facility], MANAGER PHOTO EXAM LLC GENERAL RTN W/O ABNORMAL FIND Z1151 ENCOUNTER 09-26-2016 [facility], FOR LLC SCREENING FOR HUMAN PAPILLOMAVI IVET L659 NONSCARRING 09-12-2016 [facility] HAIR LOSS [facility] UNSPECIFIED INC [id number] LAC W/O FB 09-01-2016 [facility] RT MIDDLE [facility] FINGER W/O INC DAMAGE NAIL INIT K35292O LAC W/O FB 09-01-2016 [facility] UNS FINGER PHYSICIANS, W/O DAMAGE PLLC NAIL INITIAL U317DGE CONTACT OT 09-01-2016 [facility]ARP [facility] OBJECT NOT INC ELSWHERE CLASS INIT Z39679 KITCHEN 09-01-2016 [facility] SINGLE-FAM MEM [facility] HOUSE PLACE INC OCCUR EXT CAUSE Z23 ENCOUNTER 09-01-2016 [facility] FOR [facility] IMMUNIZATIO INC N M4806 SPINAL 08-27-2016 [facility] STENOSIS COMMUNTIY LUMBAR HOSPITA REGION M5126 OTH 08-27-2016 [facility] INTERVERTEB COMMUNTIY RAL DISC HOSPITA DISPLACEMEN T LUMBAR RGN M542 CERVICALGIA 08-25-2016 [facility] D229 MELANOCYTIC 08-07-2016 [facility] NURSE NEVI PRACTITIONE UNSPECIFIED R GR I868 VARICOSE 08-07-2016 [facility] NURSE VEINS OF PRACTITIONE OTHER R GR SPECIFIED SITES L709 ACNE 08-07-2016 [facility] NURSE UNSPECIFIED PRACTITIONE R GR R601 GENERALIZED 08-05-2016 LAB DEVENDRA EDEMA MANISH HOLDINGS M8580 OT SPEC 07-08-2016 [facility] D/O [facility] DENSITY MEDICAL STRUCTURE GROUP UNS SITE M545 LOW BACK 07-03-2016 [facility] S PSC M461 SACROILIITI 06-27-2016 [facility] S NOT [facility] ELSEWHERE INC CLASSIFIED H5213 MYOPIA 06-12-2016 [place] [facility] BILATERAL SERV FOUNDATION H5319 OTHER 06-12-2016 [place] [facility] SUBJECTIVE SERV VISUAL FOUNDATION DISTURBANCE S J72268 CHRONIC 05-14-2016 [facility] MIGRAINE HEALTH W/O AURA MEDICAL INTRACT W/O GROUP STAT MIGR M810 AGE-RELATED 05-09-2016 [facility] OSTEOPOROSI INC S W/O CURRNT PATH FX Z1231 ENCOUNTER 05-09-2016 [facility] SCREENING MEDICAL MAMMO MALIG IMAGING ASS NEOPLASM BREAST K73242 ENCOUNTER 05-09-2016 [place] FOR MEDICAL SCREENING IMAGING ASS FOR OSTEOPOROSI S K5909 OTHER 05-06-2016 UL CONSTIPATIO Medicine N K591 FUNCTIONAL 05-06-2016 UL DIARRHEA Medicine M4800 SPINAL 05-06-2016 [facility] UNSPECIFIED R140 ABDOMINAL 05-06-2016 UL DISTENSION Medicine GASEOUS R6881 EARLY 05-06-2016 [facility] SATIETY Medicine R5382 CHRONIC 04-29-2016 [facility] UNSPECIFIED MEDICAL GROUP R5383 OTHER 04-18-2016 LAB DEVENDRA FATIGUE MANISH HOLDINGS R42 DIZZINESS 04-07-2016 [facility] AND PHYSICIANS GIDDINESS GROUP G119H2U CONCUSSION 04-07-2016 [facility] WITHOUT LOC PHYSICIANS INITIAL GROUP ENCOUNTER Y44607 ACUTE 03-02-2016 [place] [facility]PPURATIVE [facility] W/O HOSPITAL RUPT EAR DRUM UNS EAR R110 NAUSEA 02-27-2016 [facility] GROUP R546R3D CONCUSSION 02-27-2016 [facility] W/LOC UNS HEALTH DURATION MEDICAL INITIAL GROUP ENCOUNTER M1611 UNILATERAL 01-29-2016 [place] PRIMARY MEDICAL OSTEOARTHRI IMAGING ASS TIS RIGHT HIP G39116 PAIN IN 01-29-2016 [place] RIGHT HIP MEDICAL IMAGING ASS H5210 MYOPIA 01-15-2016 [place] [facility] UNSPECIFIED SERV EYE FOUNDATION H5203 HYPERMETROP 12-27-2015 [place] GRE BILATERAL J069 ACUTE UPPER 12-13-2015 LAB DEVENDRA MANISH RESPIRATORY HOLDINGS INFECTION UNSPECIFIED R928 OTH ABNORM 12-13-2015 [facility] & HEALTH INCONCLUSIV MEDICAL E FIND ON GROUP DX IMAG BREAST Z6829 BODY MASS 12-13-2015 [facility] INDEX BMI HEALTH 29.0-29.9 MEDICAL ADULT GROUP J0190 ACUTE 12-09-2015 [place] SINUSITIS [facility] R05 COUGH 11-16-2015 [facility] PHYSICIANS, [facility] M5430 SCIATICA 10-17-2015 [facility] UNSPECIFIED HEALTH SIDE MEDICAL GROUP H539 UNSPECIFIED 10-04-2015 [facility] VISUAL HEALTH DISTURBANCE MEDICAL GROUP R358 OTHER 10-04-2015 [facility] POLYURIA HEALTH MEDICAL GROUP R079 CHEST PAIN 10-02-2015 [place] [facility] UNSPECIFIED SERV FOUNDATION R9431 ABNORMAL 10-02-2015 [facility] ELECTROCARD LAR IOGRAM CONSULTANTS O N74658 OTHER LONG 10-01-2015 [facility] TERM PHYSICIANS CURRENT GROUP DRUG THERAPY Z0000 ENCOUNTER 09-25-2015 [facility] GEN ADULT HEALTH MED EXAM MEDICAL W/O GROUP ABNORMAL FIND A6000 HERPESVIRAL 08-17-2015 [facility] INFECTION HEALTH OF MEDICAL UROGENITAL GROUP SYSTEM UNS B009 HERPESVIRAL 08-17-2015 [facility] INFECTION HEALTH UNSPECIFIED MEDICAL GROUP Z202 CONTACT 08-17-2015 [facility] WITH HEALTH EXPOSURE MEDICAL INFECT GROUP SEXUAL MODE TRANSMS 98252 DEGEN 07-26-2015 [place] LUMBAR/LUMB MEDICAL OSACRAL IMAGING ASS INTERVERTEB RAL DISC 7242 LUMBAGO 07-26-2015 [place] [facility] IMAG[facility] ASS 43436 PROGRESSIVE 07-25-2015 [place] [facility] HIGH SERV MYOPIA FOUNDATION 86574 CHRONIC 07-11-2015 [facility] MIGRAINE HEALTH W/O MEDICAL W/INTRACTAB GROUP LE W/O SM 7231 CERVICALGIA 07-11-2015 [facility] MEDICAL GROUP 7049 UNSPECIFIED 07-02-2015 [facility] DISEASE OF HEALTH HAIR AND MEDICAL HAIR GROUP FOLLICLES 7245 UNSPECIFIED 07-02-2015 [facility] BACKACHE HEALTH MEDICAL GROUP 7881 DYSURIA 07-02-2015 LAB DEV[facility]A MANISH HOLDINGS 3384 CHRONIC 06-22-2015 LAB DEV[facility]DRA PAIN MANISH SYNDROME HOLDINGS 5990 URINARY 06-22-2015 LAB DEVENDRA TRACT MANISH INFECTION HOLDINGS SITE NOT SPECIFIED 38481 OTHER 06-15-2015 [place] [facility] VITREOUS SERV OPACITIES FOUNDATION 5363 GASTROPARES 05-14-2015 [place] [facility] IS SERV FOUNDATION 5609 UNSPECIFIED 05-14-2015 [place] [facility] INTESTINAL SERV FOUNDATION OBSTRUCTION 7873 FLATULENCE 05-14-2015 [place] [facility] ERUCTATION SERV AND GAS FOUNDATION PAIN 4011 ESSENTIAL 05-01-2015 [facility] HYPERTENSIO HEALTH N, BENIGN MEDICAL GROUP 14693 ACUTE 05-01-2015 [facility] IDIOPATHIC HEALTH PERICARDITI MEDICAL S GROUP 95393 OTHER CHEST 05-01-2015 [facility] PAIN HEALTH MEDICAL GROUP V7281 PRE-OPERATI 05-01-2015 [facility] VE HEALTH CARDIOVASCU MEDICAL LAR GROUP EXAMINATION 7213 LUMBOSACRAL 04-23-2015 [place] [facility] SPONDYLOSIS IMAGING ASS WITHOUT MYELOPATHY 67198 DISPLCMT 04-23-2015 [place] LUMBAR MEDICAL INTERVERT IMAGING ASS DISC W/O MYELOPATHY 87240 LATTICE 04-20-2015 [place] [facility] DEGENERATIO SERV N OF FOUNDATION PERIPHERAL RETINA 2449 UNSPECIFIED 04-08-2015 [facility] HYPOTHYROID ISM 3671 MYOPIA 04-08-2015 [facility] 80158 OTHER 04-08-2015 [facility] DISTORTIONS AND ENTOPTIC PHENOMENA 3688 OTHER 04-08-2015 [place] [facility]ICAL SPECIFIED SERV VISUAL FOUNDATION DISTURBANCE S 73469 PAIN IN OR 04-08-2015 [facility] 4019 UNSPECIFIED 04-08-2015 [facility] HYPERTENSIO N 4239 UNSPECIFIED 04-08-2015 [facility] PERICARDIUM 4289 UNSPECIFIED 04-08-2015 [facility] FAILURE SERV MOBILE MARKETING SPECIALIST R 67089 OTHER 04-08-2015 [facility] LUNG NOT ELSEWHERE CLASSIFIED 16867 CHEST PAIN 04-08-2015 [place] [facility] UNSPECIFIED SERV FOUNDATION V1259 PERS HX, 04-08-2015 [place] [facility] OTHER SERV DISEASES OF FOUNDATION CIRCULATORY SYSTEM 3699 UNSPECIFIED 04-07-2015 [facility] VISUAL EMERGENCY LOSS PHYS PSC 91514 UNSPECIFIED 04-07-2015 [place] DISORDER AMBULANCE OF EYE SERVICE 7820 DISTURBANCE 03-29-2015 [facility] SKIN HEALTH SENSATION MEDICAL GROUP 07491 REGULAR 03-28-2015 [place] [facility] ASTIGMATISM SERV FOUNDATION 64694 INTERMITTEN 03-28-2015 [place] [facility] T SERV EXOTROPIA, FOUNDATION ALTERNATING 63164 OTHER 03-01-2015 [place] SPECIFIED MEDICAL DISORDERS IMAGING ASS OF BREAST 87416 UNSPECIFIED 03-01-2015 [facility] ABNORMAL [facility] MAMMOGRAM INC 73758 ATROPHIC 02-26-2015 [facility], GASTRITIS LLC WITHOUT MENTION OF HEMORRHAGE 34556 UNS 02-26-2015 [facility] GASTRITIS&G [facility] ASTRODUODIT INC IS W/O MENTION HEMORR 32567 NAUSEA 02-26-2015 [facility] ALONE [facility] INC 79731 ABDOMINAL 02-26-2015 [facility] PAIN, MEM HOS[facility] GENERALIZED INC V5869 LONG-TERM 02-26-2015 [facility] (CURRENT) MEM [facility]OS[facility] USE OF INC OTHER MEDICATIONS 7804 DIZZINESS 11-29-2014 [facility] GIDDINESS MEDICAL GROUP 7840 HEADACHE 11-29-2014 [facility] MEDICAL GROUP 58724 OTHER 10-27-2014 [facility] DISEASES OF PHYSICIANS LARYNX GROUP 98771 DYSPHONIA 10-27-2014 [facility] PHYSICIANS GROUP 76826 DYSPHAGIA 10-27-2014 [facility] UNSPECIFIED PHYSICIANS GROUP V642 SURG/OTH 10-23-2014 [facility] PROC NOT [facility] P BECAUSE PTS DECN 34781 EARLY 10-17-2014 [facility] SATIETY PHYSICIANS GROUP 21987 DYSPHAGIA 10-17-2014 [facility] OROPHARYNGE PHYSICIANS AL PHASE GROUP 08413 ABDOMINAL 10-17-2014 [facility] PAIN, PHYSICIANS EPIGASTRIC GROUP 25893 INSOMNIA 09-27-2014 [facility] UNSPECIFIED NEUROLOGY CENTER [place] V700 ROUTINE 09-21-2014 [facility] GENERAL [facility] MEDICAL INC EXAM@HEALTH CARE FACL V7612 OTHER 09-21-2014 [place] SCREENING MEDICAL MAMMOGRAM IMAGING ASS 38385 ABDOMINAL 09-18-2014 [place] PAIN, MEDICAL UNSPECIFIED IMAGING ASS SITE 3829 UNSPECIFIED 09-16-2014 [facility] SANTANA OTITIS MEDIA 4619 ACUTE 09-16-2014 [facility] SANTANA SINUSITIS, UNSPECIFIED V0481 NEED 09-16-2014 [facility] SANTANA PROPHYLACTI C VACCINATION &INOCULATIO N FLU 3502 ATYPICAL 09-06-2014 [facility] FACE PAIN [facility]UROLOGY CENTER [place] 40083 MIGRAINE 08-24-2014 [facility] W/O AURA NEUROLOGY INTRACT W/O CENTER [place] STATUS MIGRAINOSUS 2181 INTRAMURAL 08-23-2014 [place] LEI[place] STEAM FITTER OF UTERUS ASSOCIATES, 2189 LEIOMYOMA 08-15-2014 [place] OF UTERUS, MEDICAL UNSPECIFIED IMAGING ASS 6202 OTHER AND 08-15-2014 [facility] UNSPECIFIED MEM HOSP OVARIAN INC CYST 6259 UNSPEC 08-15-2014 [place] SYMPTOM MEDICAL ASSOC IMAGING ASS W/FEMALE GENITAL ORGANS 7812 ABNORMALITY 08-09-2014 [facility] OF [facility] C[facility] [place] V7231 ROUTINE 08-07-2014 [facility] BENJAMIN GYNECOLOGIC AL EXAMINATION V762 SCREENING 08-07-2014 LABORATORY FOR DEVENDRA OF MALIGNANT MANISH H NEOPLASM OF THE CERVIX 15175 ESOPHAGEAL 07-31-2014 [facility] REFLUX HEALTH MEDICAL GROUP 7291 UNSPECIFIED 06-04-2014 E[facility] INC MYALGIA AND MYOSITIS 5950 ACUTE 05-03-2014 [facility] BENJAMIN CYSTITIS 79160 OTHER 05-03-2014 AP[place] [address] OSTEOARTHRO 04-21-2014 FAYE SANTANA S INVLV MX SITES BUT [place] SPEC GEN 02050 BENIGN 04-17-2014 [facility] PAROXYSMAL [facility] POSITIONAL HOSP VERTIGO V571 OTHER 04-17-2014 [facility] PHYSICAL [facility] THERAPY HOSP 7210 CERVICAL 03-21-2014 VAS[facility] SPONDYLOSIS GIANNI WITHOUT MYELOPATHY 7230 SPINAL 03-20-2014 [place] STENOSIS IN [place] CERVICAL REGION 84829 SPINAL STEN 03-20-2014 [place] LUMB REG [place] W/O NEUROGENIC CLAUDICATIO N 69652 SPINA 03-20-2014 [place] BIFIDA WITH [place] HYDROCEPHAL US CERVICAL REGION 22011 POSTLAMINEC 01-31-2014 [facility] JUSTINO SYNDROME CERVICAL REGION 7244 THORACIC/ABRAHAM 01-31-2014 MARIIRUPALI STEIN MBOSACRAL NEURITIS/RA DICULITIS UNSPEC 0549 HERPES 01-26-2014 [facility] BENJAMIN SIMPLEX WITHOUT MENTION OF COMPLICATIO N 5533 DIAPHRAGMAT 01-19-2014 [facility] WHI ALTAGRACIA W/O MENTION OBSTRUCTION /GANGREN 7821 RASH AND 01-19-2014 [facility] WHI OTHER NONSPECIFIC SKIN ERUPTION 7850 UNSPECIFIED 01-18-2014 [facility] ANT TACHYCARDIA 29339 CHRONIC 01-13-2014 [facility] W/O AURA W/O INTRACTABLE W/O SM 7218 OTHER 01-10-2014 [facility] ALLIED JANET DISORDERS OF SPINE 7220 DISPLCMT 01-10-2014 [facility] CERV JANET INTERVERT DISC WITHOUT MYELOPATHY 29520 KYPHOSIS 01-10-2014 [facility] ACQUIRED JANET POSTURAL V454 ARTHRODESIS 01-10-2014 [facility] STATUS JANET V1641 FAMILY 01-05-2014 [facility] HISTORY OF JANET MALIGNANT NEOPLASM OVARY 7224 DEGENERATIO 12-29-2013 GO TRA N OF CERVICAL INTERVERTEB RAL DISC 2724 OTHER AND 12-28-2013 AP[facility] ANT UNSPECIFIED HYPERLIPIDE HERIBERTO 72392 ABDOMINAL 12-08-2013 [facility] WHI PAIN, LEFT LOWER QUADRANT 345.90 345.90 09-21-2013 Mehran EPILEPSY [facility] UNSPEC W/O Hospital MENTION INTRACTABLE EPILEPSY 401.9 401.9 09-21-2013 Mehran HYPERTENSIO [facility] 413.9 413.9 09-21-2013 Mehran ANGINA [facility] PECTORIS [facility] NEC/NOS 786.50 786.50 09-21-2013 Mehran CHEST PAIN [facility] V14.8 V14.8 09-21-2013 Mehran HX-DRUG [facility] ALLERGY [facility] V45.89 V45.89 09-21-2013 Mehran POSTSURGICA [facility] V58.69 V58.69 OTH 09-21-2013 Mehran MED,LT,CURR [facility] ENT USE Hospital 4299 UNSPECIFIED 09-10-2013 [facility] 92362 ALTERED 09-06-2013 [facility] M[facility]AL RADIOLOGY STATUS ASSOC 692.9 692.9 05-24-2013 Mehran DERMATITIS [facility] 723.1 723.1 05-24-2013 Mehran CERVICALGIA [facility] 780.39 780.39 05-24-2013 Mehran OTHER [facility] CONVULSIONS [facility] 780.2 780.2 01-07-2013 Mehran SYNCOPE AND [facility] COLLAPSE Hospital 780.79 780.79 OTH 01-07-2013 [place] MALAISE&FAT [facility] 781.2 781.2 01-07-2013 [facility] M54.2 CERVICALGIA R05 COUGH R07.9 CHEST [...] #3 93 MG 8 TA BL ET MO 65 07 08 30 7 00 RI [...] AI ZA 75 17 17 44 D MO 0 99 PH IN AR E MA [...] CY TA BL #3 ET 93 8 MO 65 05 06 30 15 00 RI Ac OM 16 -1 -0 .0 00 TE ti ET 20 5- 9- 00 01 ve GERARDO 52 20 20 17 AI ZI 11 17 17 73 D NE 0 66 PH AR 25 MA CY MG #3 TA 93 BL 8 ET LOG BRANDER 42 05 06 30 30 00 RI [...] CY TA #3 BL 93 ET 8 MO 65 03 04 30 15 00 RI [...] CA #3 PS 93 UL 8 E MO 00 01 02 15 10 00 RI Ac OM 60 -1 -1 0. 00 TE ti ET 31 2- 0- 00 01 ve GERARDO 58 20 20 0 16 AI ZI 65 17 17 65 D NE 4 80 PH -D AR M MA SY CY RU P #3 93 8 MO 00 01 02 60 30 00 RI [...] CY TA BL #3 ET 93 8 MO 00 11 0 No OM 64 -0 [...] ti ML ve Sy ri ng e MO 00 07 0 No OM 64 -0 [...] ve 0. 9% SO ABRAHAM TI ON MO 00 02 0 No OM 64 -2 ET 11 2- Lo GERARDO 49 20 ng ZI 53 13 er NE 5 Ac 25 ti ve MG /M L AM PU L SO 00 02 1 No DI 40 -2 UM 97 1- Lo 98 20 ng CH 42 13 er LO 0 RI Ac DE ti ve 0. 9% SO ABRAHAM TI ON MO 00 02 0 No OM 64 -2 [...] CARDINAL SAGITTAL- 7 ORTHOTICS ORTHOTICS CORONAL , [employer] , [employer] CONTRL RIGD ANT POST PANELS ANES 63460 [facility] INTEG 7 ANESTH MUSC & OF THE NRV HEAD BLUE NECK&POST ERIOR TRUNK INFUSION C1772 [facility] PUMP 7 MEM HOSP MEM HOSP PROGRAMMA INC INC BLE IMPLTJ 80764 [facility]URENT REVJ/RPSG 7 MEM HOSP MEM HOSP INC INC ITHCL/EDR L CATH BAGGER MEAT W/O PEREZ UNCLASSIF J3490 [facility] LAURENT IED DRUGS 7 MEM HOSP MEM HOSP INC INC IMPLTJ/RP 79272 [facility] SPOONAMOR LCMT 7 SURGICAL E ITHCL/EDR L DRUG NFS PRGRBL PUMP BASIC 87156 [facility] METABOLIC 7 MEM HOSP MEM HOSP PANEL INC INC CALCIUM TOTAL BLOOD 72575 [facility] LAURENT COUNT 7 MEM HOSP MEM HOSP COMPLETE INC INC AUTO&AUTO DIFRNTL WBC DETERMINA 94182 [facility] KEYS TION 7 REFRACTIV E STATE OPHTH 39056 [facility] 7 XM&EVAL COMPRHNSV ESTAB PT 1/> ARTHROCEN 59435 [facility] CARBAJAL 7 ORTHOPEDI ASPIR&/IN C J MAJOR ASSOCIAT JT/BURSA W/O Tracky COMPUTERI 70218 ALEX JOHNSON ZED 7 OPHTHALMI C IMAGING RETINA DUP-SCAN 20197 [facility] [place] SCALF XTR VEINS 7 RADIOLOGY UNILATERA L/LIMITED STUDY URNLS DIP 46093 [facility] 7 HEALTH STICK/TAB MEDICAL LET RGNT GROUP NON-AUTO W/O MICRSCP RADEX HIP 01975 [facility] 7 RADIOLOGY UNILATERA ASSOC L WITH PELVIS 2-3 [place] [address] CAROLE ZARCO TRANSVAGI 7 [place]ICAL [place] [address] [facility] ABDOMEN & 7 MEDICAL PELVIS IMAGING W/CONTRAS ASS T MATERIAL FINAL G9551 [facility] REPR ABD 7 MEDICAL IMAG STS IMAGING W/O ASS INCIDNT FND LES NTD: FINAL G9638 [facility] REPORTS 7 MEDICAL W/O DOC IMAGING 1/[place] [address] [facility] UREA 7 [facility] NITROGEN INC INC QUANTITAT [place] COLLECTIO 38625 [facility] N VENOUS 7 [facility] BLOOD INC INC VENIPUNCT URE CREATININ 75733 [facility] E BLOOD 7 [facility] INC INC ANES 12967 [facility] UPPER GI 7 ANESTH ENDOSCOPY OF THE PROXIMAL BLUE TO DUODENUM SLEEP STD 21485 [facility] AIRFLOW 7 [facility] HRT INC INC RATE&O2 SAT EFFORT UNATT URINE 45923 [facility] 7 [facility] TEST INC [place] [address] [facility] HEAD/BRAI 7 [facility] N W/O INC INC CONTRAST MATERIAL FINAL G9638 [facility] REPORTS 7 MEDICAL W/O DOC IMAGING 1/[place] [address] [facility] INFUSION 7 [facility] THERAPY/P INC INC ROPHYLAXI S /DX 1ST TO 1 HR URNLS DIP 84713 [facility] 7 [facility] STICK/TAB INC INC LET REAGENT AUTO MICROSCOP Y THERAPEUT 29397 [facility] IC 7 [facility] INJECTION INC INC [place] NJX [address]53 PAVAN MUELLER DX/THER 7 MD ERVIN, SBST PSC INTRLMNR LMBR/SAC W/IMG GDN ROM 92155 [facility] CHELSEY&REPR 7 [facility] T EA XTR INC INC EX HAND/EA TRNK SCTJ SPI GLUC BLD 78053 [facility] GLUC MNTR 7 [facility] DEV INC INC CLEARED FDA SPEC HOME USE ANTINUCLE 89122 [facility] AR 7 MANISH MANISH [place] [address] [facility] BLOOD/URI 7 MANISH MANISH C ACID HOLDINGS HOLDINGS COMPREHEN 45874 [facility] SIVE 7 [facility]ISH METABOLIC HOLDINGS HOLDINGS PANEL C-REACTIV 31320 [facility] E PROTEIN 7 MANISH MANISH [facility] HOLDINGS BLOOD 93375 [facility] DEV[facility]DRA COUNT 7 MANISH MANISH COMPLETE HOLDINGS HOLDINGS AUTO&AUTO DIFRNTL WBC RHEUMATOI 95269 LAB DEVENDRA LAB DEVENDRA D FACTOR 7 MANISH MANISH QUANTITAT HOLDINGS HOLDINGS [place] CHEMODERV 42480 [facility] MYRIAM-M ATE 7 PHYSICIAN OGHADDAM FACIAL/TR S GROUP IGEM/CERV MUSC MIGRAINE BOTULINUM J0585 [facility] ANDREW TOXIN 7 PHYSICIAN OGHADDAM TYPE A S GROUP PER UNIT COLLECTIO 98990 MEHRAN LAURENT N VENOUS 6 [facility] BLOOD INC INC VENIPUNCT URE IMMUNOASS 62897 MEHRAN LAURENT AY TUMOR 6 [facility] ANTIGEN INC INC QUANTITAT [place] INJECTION 16902 PAVAN MUELLER MD, SINGLE/ML PSC T TRIGGER POINT 1/2 [place] [address] MEHRAN LAURENT TRANSVAGI 6 [facility] NAL INC INC LIPID 68751 LAB DEVENDRA LAB DEVENDRA PANEL 6 MANISH MANISH HOLDINGS HOLDINGS CYTP C/V 83538 [facility], PICKLESIM AUTO THIN 6 LLC ER JR YEE LYR PREPJ SCR MNL RESCR PHYS COMPREHEN 16991 LAB DEVENDRA LAB DEVENDRA SIVE 6 [facility] METABOLIC [place] [address] LAB DEVENDRA LAB DEVENDRA THYROID 6 [facility] STIMULATI HOLDINGS [place] [address] LAB DEVENDRA LAB DEVENDRA THYROXINE 6 [facility] TOTAL HOLDINGS HOLDINGS IADNA 93640 [facility], PICKLESIM HUMAN 6 LLC ER JR YEE [place] VIRUS HIGH-RISK TYPES COLLECTIO 70890 MEHRAN LAURENT N VENOUS 6 [facility] [place] [address] MEHRAN LAURENT FREE 6 [facility] [place] [address] MEHRAN LAURENT THYROID 6 [facility] STIMULATI [place] [address] MEHRAN LAURENT TRIIODOTH 6 [facility] YRONINE INC INC T3 FREE BLOOD 68058 MEHRAN LAURENT COUNT 6 [facility] COMPLETE INC INC AUTO&AUTO DIFRNTL WBC SIMPLE 97445 MEHRAN LAURENT REPAIR 6 [facility] SCALP/NEC INC INC K/AX/BLUE T/TRUNK 2.5CM/< IM ADM 05531 MEHRAN LAURENT PRQ ID 6 [facility] SUBQ/IM INC INC NJXS 1 VACCINE LAMNOTMY 47519 [facility] GO INCL 6 W/DCMPRSN ORTHOPAED NRV ROOT ICS PSC 1 INTRSPC LUMBR ANESTHESI 23912 [facility] A LUMBAR 6 ANESTHESI JAVI REGION A GROUP NOS PS BOTULINUM J0585 [facility] SHOJAEI-M TOXIN 6 PHYSICIAN OGHADDAM TYPE A S GROUP PER UNIT CHEMODERV 93329 [facility] SHOJAEI-M ATE 6 PHYSICIAN OGHADDAM FACIAL/TR S GROUP IGEM/CERV MUSC MIGRAINE COMPREHEN 88784 LAB DEVENDRA LAB DEVENDRA SIVE 6 [facility] METABOLIC HOLDINGS HOLDINGS PANEL BLOOD 13523 LAB DEVENDRA LAB DEVENDRA COUNT 6 [facility] COMPLETE HOLDINGS HOLDINGS AUTO&AUTO DIFRNTL WBC BLOOD 42282 MEHRAN LAURENT COUNT 6 [facility] MEM [facility]OS[facility] COMPLETE INC INC AUTO&AUTO DIFRNTL WBC ECG 59503 MEHRAN TORRES JR ROUTINE 6 [facility] W/LEAST P 12 LDS I&R ONLY COLLECTIO 95110 MEHRAN LAURENT N VENOUS 6 [facility] HOSP BLOOD INC INC VENIPUNCT URE RADIOLOGI 26253 [facility] C EXAM 6 MEDICAL CHEST 2 IMAGING VIEWS ASS FRONTAL&L ATERAL DRUG TST G0477 MEHRAN HEON PRESUMP;C 6 [facility] HOSP PBL BEING INC INC READ DC OPT OBV ONLY ECG 35213 MEHRAN MEHRAN ROUTINE 6 [facility] HOSP ECG INC INC W/LEAST 12 LDS TRCG ONLY W/O I&R BASIC 85477 MEHRAN LAURENT METABOLIC 6 [facility] HOSP PANEL INC INC CALCIUM TOTAL INJECTION 18678 PAVAN MUELLER ANJ 6 MD ERVIN, SINGLE/ML PSC T TRIGGER POINT 1/2 [place] MRI 10701 [facility] GO TRA SPINAL 6 CANAL ORTHOPAED LUMBAR ICS PSC [place] [address] PAVAN DUFF CHARMAINE JOINT 6 MD ERVIN, ARTHRGRPH PSC Y&/ANES/S TEROID W/[place] INJ PROC G0260 MEHRAN MEHRAN SI 6 [facility] HOSP JNT;ANES INC INC STEROID&/ TX AGT&ARTHR OGRPH RADEX HIP 30702 [facility] GO 6 [place] ORTHOPAED L WITH ICS PSC PELVIS 1 VIEW DRUG TST G0477 MEHRAN LAURENT PRESUMP;C 6 [facility] HOSP PBL BEING INC INC READ DC OPT OBV ONLY THERAPEUT 08647 MEHRAN DE LA O IC 6 [facility] TIC/DX INJECTION SUBQ/IM INJECTION J1040 MEHRAN DE LA O 6 [facility] DNISOLONE ACETATE 80 MG INJECTION J1885 MEHRAN DE LA O 6 [facility] [place] INE PER 15 MG SENSORMOT [address] [place] OR XM 6 MEDICAL MEDICAL W/LOOPER FIXER SERV SERV CHELSEY FOUNDATIO FOUNDATIO OCULAR N N DEVIJ W/I&R SPX COMPUTERI 62283 CAROLE SARABIAD 6 MEDICAL PAD OPHTHALMI SERV C IMAGING FOUNDATIO RETINA N CHEMODERV 28689 [facility] TOÑITO ATE 6 [facility] FACIAL/TR MEDICAL IGEM/CERV GROUP MUSC MIGRAINE BOTULINUM J0585 [facility] TOÑ[facility]O TOXIN 6 [facility] TYPE A MEDICAL PER UNIT GROUP DXA BONE 02029 [place] [facility] DENSITY 6 MEDICAL JANET STUDY 1/> IMAGING SITES ASS AXIAL SKEL COMPUTER- 71352 [place] [facility] AIDED 6 MEDICAL JANET DETECTION IMAGING ASS SCREENING MAMMOGRAP HY SCREENING G0202 [place] [facility] 6 MEDICAL JANET MAMMOGRAP IMAGING HY JOSELIN ASS INCL CAD WHEN PERFORMD [facility] G[address] T [facility] ASSESS & MGMT PT INJECTION J1885 [facility] [address] [place] [address] TROMETHAM INE PER 15 MG INJECTION J1040 MEHRANZOYA DE LA O [address] [place] [address] DNISOLONE ACETATE 80 MG THERAPEUT 00356 [place] JAYLYN IC 6 [facility] TIC/DX INJECTION SUBQ/IM INJECTION J1885 [facility] MORRIN [address] [place] [address] [facility] TROMETHAM INE PER 15 MG THERAPEUT 55940 [facility] MORRIN IC 6 HEALTH PROPHYLAC MEDICAL TIC/DX GROUP INJECTION SUBQ/[place] [address] LAB DEVENDRA LAB DEVENDRA THYROXINE 6 [facility] [place] [address] LAB DEVENDRA LAB DEVENDRA TRIIODOTH 6 MANISH MANISH YRONINE HOLDINGS HOLDINGS T3 TOTAL TT3 COMPREHEN 88774 LAB DEVENDRA LAB DEVENDRA SIVE 6 [facility] METABOLIC [place] [address] LAB DEVENDRA LAB DEVENDRA IRON 6 [facility] [address] LAB DEVENDRA LAB DEVENDRA FOLIC 6 [facility] MAN[facility] [place] [address] LAB DEVENDRA LAB DEVENDRA THYROID 6 [facility] STIMULATI HOLDINGS HOLDINGS NG HORMONE TSH CYANOCOBA 24229 LAB DEVENDRA LAB DEVENDRA DAVID 6 MANISH MANISH VITAMIN HOLDINGS HOLDINGS B-12 25 12951 LAB DEVENDRA LAB DEVENDRA HYDROXY 6 MANISH MANISH INCLUDES HOLDINGS HOLDINGS FRACTIONS IF PERFORMED MICROSOMA 27171 LAB DEVENDRA LAB DEVENDRA L 6 [facility] MAN[facility] ANTIBODIE HOLDINGS HOLDINGS S EACH BLOOD 46803 LAB DEVENDRA LAB DEVENDRA COUNT 6 [facility] COMPLETE HOLDINGS HOLDINGS AUTO&AUTO DIFRNTL WBC IRON 71420 LAB DEVENDRA LAB DEVENDRA BINDING 6 [facility] [place] [address] PAVAN DURON CRI DX/THER 6 MD ERVIN, [...] INC VISIT ASSESS & MGMT PT THERAPEUT 75434 CHRISTIANITYDanay RODRIGUES IC 6 [facility] PROPHYLAC MEDICAL TIC/DX GROUP INJECTION SUBQ/IM INJECTION J3301 [facility] LILIA 6 [facility] TRIAMCINO MEDICAL LONE GROUP ACETONIDE [place] [address] [place] [address] [place] [facility] CERVICAL 6 MEDICAL JANET SPINE W/[place] [address] [place] [facility] HEAD/BRAI 6 MEDICAL JANET N W/O IMAGING CONTRAST ASS MATERIAL RADEX HIP 66445 [place] BEINEKE 6 MEDICAL UNILATER[place] IMAGING L WITH ASS PELVIS 2-3 VIEWS CHEMODERV 92226 [facility] TOÑITO ATE 6 [facility] FACIAL/TR MEDICAL IGEM/CERV GROUP MUSC MIGRAINE BOTULINUM J0585 [facility] TOÑITO TOXIN 6 [facility] TYPE A MEDICAL PER UNIT GROUP OPHTH 90545 [facility] 6 GRE GRE XM&EVAL COMPRE NEW PT 1/> VST COMPREHEN 74526 LAB DEVENDRA LAB DEVENDRA SIVE 6 [facility] METABOLIC [place] [address] LAB DEVENDRA LAB DEVENDRA THYROID 6 [facility] STIMULATI HOLDINGS HOLDINGS NG HORMONE TSH BLOOD 01321 LAB DEVENDRA LAB DEVENDRA COUNT 6 [facility] COMPLETE HOLDINGS HOLDINGS AUTO&AUTO DIFRNTL WBC LIPID 70225 LAB DEVENDRA LAB DEVENDRA PANEL 6 [facility] MAN[facility] HOLDINGS HOLDINGS PRESSURIZ 91753 MEHRAN LAURENT ED/NONPRE 6 [facility] SSURIZED INC INC INHALATIO N TREATMENT INJECTION J1040 MEHRAN SHARMA 5 [facility] DNISOLONE ACETATE 80 MG INJECTION J0696 MEHRAN SHARMA [address] [place] [address] NE SODIUM PER 250 MG THERAPEUT 46416 MEHRAN SHARMA IC 5 [facility] TIC/DX INJECTION SUBQ/IM CHEMODERV 35074 [facility] TOÑITO ATE 5 [facility] FACIAL/TR MEDICAL IGEM/CERV GROUP MUSC MIGRAINE BOTULINUM J0585 [facility] TOÑITO TOXIN 5 [facility] TYPE A MEDICAL PER UNIT GROUP ECHO 63698 [facility] R-T 5 MEDICAL GABRIEL SERV W/WOM-MOD FOUNDATIO E COMPL N SPEC&COLR D OBSERVATI 14681 [facility] ON CARE 5 PHYSICIAN FEDE DISCHARGE S GROUP MANAGEMEN T CREATINE 41993 MEHRAN LAURENT KINASE 5 [facility] TOTAL INC INC [facility] G0378 MEHRAN LAURENT OBSERVATI 5 [facility] ON INC INC SERVICE PER HOUR COLLECTIO 54472 MEHRAN LAURENT N VENOUS 5 [facility] BLOOD INC INC VENIPUNCT URE COMPREHEN 96589 MEHRAN LAURENT SIVE 5 [facility] METABOLIC INC INC PANEL CREATINE 96639 MEHRAN LAURENT KINASE MB 5 [facility] FRACTION INC INC ONLY BLOOD 24164 MEHRAN LAURENT COUNT 5 [facility] COMPLETE INC INC AUTO&AUTO DIFRNTL WBC NONINVASI 44762 MEHRAN LAURENT VE 5 [facility] EAR/PULSE INC INC OXIMETRY SINGLE DETER INITIAL 56666 [facility] 5 [facility]/DAY CONSULTAN 50 [place] [address] MEHRAN LAURENT TROPONIN 5 [facility] QUANTITAT INC INC [place] HEMOGLOBI 13656 MEHRAN LAURENT N 5 [facility]OS[facility] GLYCOSYLA INC INC KARLA A1C BLOOD 69898 MEHRAN LAURENT COUNT 5 [facility] COMPLETE INC INC AUTO&AUTO DIFRNTL WBC ECG 26701 MEHRAN TORRES JR ROUTINE 5 [facility] W/LEAST P 12 LDS I&R ONLY URNLS DIP 56771 MEHRAN LAURENT 5 [facility] STICK/TAB INC INC [place] [address] MEHRAN LAURENT TROPONIN 5 [facility] QUANTITAT INC INC [place] INITIAL 00381 [facility] JAROD OBSERVATI 5 PHYSICIAN FEDE ON S GROUP CARE/DAY 50 MINUTES THERAPEUT 70454 MEHRAN LAURENT IC 5 [facility] INJECTION INC INC IV PUSH EACH NEW DRUG NONINVASI 38058 MEHRAN LAURENT VE 5 [facility] EAR/PULSE [place] [address] MEHRAN LAURENT ANGIOGRAP 5 [facility] HY CHEST INC INC W/CONTRAS T/NONCONT [facility] G0378 MEHRAN LAURENT OBSERVATI 5 [facility] ON INC INC SERVICE PER HOUR COMPREHEN 98634 MEHRAN LAURENT SIVE 5 [facility] METABOLIC INC INC PANEL CREATINE 04696 MEHRAN LAURENT KINASE MB 5 [facility] FRACTION INC INC ONLY LOCM Q9967 MEHRAN LAURENT [phone] 5 [facility] MG/ML INC INC IODINE CONCENTRA TION PER ML COLLECTIO 04010 MEHRAN LAURENT N VENOUS 5 [facility] BLOOD INC INC VENIPUNCT URE FIBRIN 21015 MEHRAN HEON DGRADJ 5 [facility]OSP PRODUCTS INC INC D-DIMER QUAL/SEMI TACO THER 41756 MEHRAN LAURENT PROPH/DX 5 [facility] NJX IV INC INC PUSH SINGLE/1S T SBST/DRUG ECG 95597 MEHRAN LAURENT ROUTINE 5 [facility] ECG INC INC W/LEAST 12 LDS TRCG ONLY W/O I&R CREATINE 97564 MEHRAN LAURENT KINASE 5 [facility] TOTAL INC INC URINE 13963 MEHRAN LAURENT 5 [facility] TEST INC INC VISUAL COLOR CMPRSN METHS RADIOLOGI 37397 MEHRAN LAURENT C 5 [facility] HOSP EXAMINATI INC INC ON CHEST SINGLE VIEW FRONTAL IM ADM 51160 JUDD PARKS JOCELIN PRQ ID 5 HEALTH SUBQ/IM MEDICAL NJXS 1 GROUP VACCINE IIV3 VACC 59791 JUDD PARKS JOCELIN 5 HEALTH PRESERVAT MEDICAL [place] FREE GROUP 0.5 ML DOSAGE IM USE THERAPEUT [address] IC 5 [facility] TIC/DX INJECTION SUBQ/IM INJECTION J[address] 5 [facility] DNISOLONE ACETATE 40 MG RADEX 30315 MEHRAN LAURENT SPINE 5 [facility] HOSP LUMBOSACR INC INC AL MINIMUM 4 VIEWS CHEMODERV 70849 [facility] TOÑITO ATE 5 [facility] FACIAL/TR MEDICAL IGEM/CERV GROUP [facility] MIGRAINE BOTULINUM J0585 [facility] TOÑITO TOXIN 5 [facility] TYPE A MEDICAL PER UNIT GROUP INJECTION J1885 [facility] MORRIN 5 [facility] [place] INE PER 15 MG CULTURE 01138 LAB DEVENDRA LAB DEVENDRA BACTERIAL 5 [employer] HOLDINGS HOLDINGS QUANTTATI VE COLONY COUNT URINE INJECTION J3301 [facility] MORRIN 5 [facility] TRIAMCINO MEDICAL LONE GROUP ACETONIDE NOS 10 MG SUSCEPTIB 62512 LAB DEVENDRA LAB DEVENDRA LTY STDY 5 [facility] ANTIMICRB HOLDINGS HOLDINGS IAL MICRO/AGA R DILUTJ INJECTION J1885 JUDD PARKS JOCELIN 5 [facility] [place] INE PER 15 MG CULTURE 22733 LAB DEVENDRA LAB DEVENDRA BACTERIAL 5 [facility] HOLDINGS HOLDINGS QUANTTATI VE COLONY COUNT URINE CULTURE 23752 LAB DEVENDRA LAB DEVENDRA BCT 5 [facility] ISOL[facility] HOLDINGS HOLDINGS PTV ID ISOLATE EA URINE CUL BACT 22099 LAB DEVENDRA LAB DEVENDRA AEROBIC 5 [facility] ADDL HOLDINGS HOLDINGS METHS DEFINITIV E EA ISOL MRI 42254 [place] [facility] SPINAL 5 MEDICAL JANET CANAL IMAGING LUMBAR ASS W/O CONTRAST MATERIAL 3D 43845 [place] [facility] RENDERING 5 MEDICAL JANET W/INTERP IMAGING & ASS POSTPROCE SS SUPERVISI ON OPHTH 68655 [employer] [facility] 5 MEDICAL CLA XM&EVAL SERV INTERMEDI FOUNDATIO ATE ESTAB N PT BASIC 00512 [facility] METABOLIC 5 Y Y PANEL [facility] CALCIUM TOTAL THROMBOPL 71396 [facility] ASTIN 5 Y Y TIME [facility] PARTIAL PLASMA/WH OLE BLOOD RADIOLOGI 63389 [facility] [address] [facility] ON CHEST SINGLE VIEW FRONTAL ECG 60530 [facility] ROUTINE 5 [facility] ECG HOSP HOSP W/LEAST 12 LDS TRCG ONLY W/O I&R GROUND A0425 MERCURY MERCURY MILEAGE 5 AMBULANCE AMBULANCE PER SERV MOBILE MARKETING SPECIALIST SERV MOBILE MARKETING SPECIALIST STATUTE R R MILE BLOOD 07117 [facility] COUNT 5 Y Y [facility] [address] [facility] TROPONIN 5 [facility] QUANTITAT HOSP HOSP [place] ECG 52650 [place] SUSAN ROUTINE 5 MEDICAL ECG SERV W/LEAST FOUNDATIO 12 LDS N I&R ONLY INJECTION J2550 [facility] 5 Y Y [facility] INE HCL UP TO 50 MG THER 96494 [facility] PROPH/DX 5 Y Y NJX IV HOSPITAL HOSPITAL PUSH SINGLE/1S T SBST/DRUG PROTHROMB 69450 [facility] 5 Y [place] [facility] [place] [address] [facility] THERAPY 5 [facility] PROPHYLAX HOSP HOSP IS/DX CONCURREN T NFS COLLECTIO 08810 [facility] N VENOUS 5 [facility] BLOOD HOSP HOSP VENIPUNCT URE COMPREHEN 46141 [facility] SIVE 5 [facility] [place] [address] [facility] AMYLASE 5 [facility] HOSP HOSP NONINVASI 98685 [facility] VE 5 [facility] EAR/PULSE HOSP HOSP OXIMETRY MULTIPLE DETER INJECTION J2550 [facility]EN[facility]AL 5 [facility] PROMETHAZ HOSP HOSP INE HCL UP TO [address] [place] [address] [facility] LIPASE 5 [facility]ST[facility] HOSP HOSP FIBRIN 25854 CEN[facility] DGRADJ 5 CHRISTIANITY [facility] PRODUCTS HOSP HOSP D-DIMER QUANTITAT [place] PROTHROMB 52439 [facility] IN TIME 5 [facility] HOSP HOSP ECG 08907 [facility] ROUTINE 5 [facility] ECG HOSP HOSP W/LEAST 12 LDS TRCG ONLY W/O I&R INJECTION J2270 [facility] MORPHINE 5 [facility] SULFATE HOSP HOSP UP [place] 10 [place] [address] [facility] INFUSION 5 [facility] THERAPY/P HOSP HOSP ROPHYLAXI S /DX 1ST TO 1 HR THERAPEUT 54412 [facility] IC 5 [facility] INJECTION HOSP HOSP IV PUSH EACH NEW DRUG NATRIURET 94197 [facility] IC 5 [facility] [place] [address] [facility]AL [facility]EN[facility] TROPONIN 5 [facility] QUANTITAT HOSP HOSP [place] BLOOD 32491 [facility] COUNT 5 [facility] COMPLETE HOSP HOSP AUTO&AUTO DIFRNTL WBC GROUND A0425 [facility] MILEAGE 5 AMBULANCE AMBULANCE [place] [address] [facility]EN[facility]AL [facility] INFUSION 5 [facility] THERAPY HOSP HOSP PROPHYLAX IS/DX EA HOUR THER 74008 [facility] PROPH/DX 5 [facility]IANITY [facility] NJX EA HOSP HOSP SEQL IV PUSH SBST/DRUG FAC THROMBOPL 81695 [facility] ASTIN 5 [facility] TIME HOSP HOSP PARTIAL PLASMA/WH OLE BLOOD RADIOLOGI 56745 [facility] BRIGHT C 5 RADIOLOGY III JAM EXAMINATI ASSOC ON CHEST SINGLE VIEW FRONTAL AMB A0427 [facility] SERVICE 5 AMBULANCE AMBULANCE ALS SERVICE SERVICE EMERGENCY TRANSPORT LEVEL 1 CRITICAL 35873 [facility] CARE 5 EMERGENCY ILL/INJUR PHYS PSC ED PATIENT INIT 30-74 MIN INJECTION J1885 JUDD PARKS JOCELIN 5 [facility]ALTH [facility] TROMETHAM INE PER 15 MG THERAPEUT 05619 JUDD PARKS JOCELIN IC 5 [facility] PROPHYLAC MEDICAL TIC/DX GROUP INJECTION SUBQ/IM DETERMINA 05746 CAROLE RODRIGUEZ TION 5 MEDICAL MEGAN REFRACTIV SERV E STATE FOUNDATIO N OPHTH 23931 CAROLE MICHAEL MEDICAL 5 MEDICAL MEGAN XM&EVAL SERV COMPRHNSV FOUNDATIO ESTAB PT N 1/> CHEMODERV 74013 [facility] TOÑITO ATE 5 [facility] FACIAL/TR MEDICAL IGEM/CERV GROUP [facility] MIGRAINE DIAGNOSTI G0206 [place] [facility] C 5 MEDICAL JANET MAMMOGRAP IMAGING HY INCL ASS CAD WHEN [place]; [place] [address] [facility], PICKLESIM SURG 5 [facility] PATHOLOGY GROSS&[place] [address] MEHRAN LAURENT INFUSION 5 [facility] THERAPY/P INC INC ROPHYLAXI S /DX 1ST TO 1 HR EGD 81562 CAROLE CANDELARIA ANT TRANSORAL 5 MEDICAL BIOPSY SERV SINGLE/MU FOUNDATIO LTIPLE N CUL 51187 MEHRAN LAURENT PRSMPTV 5 [facility] PTHGNC INC INC ORGANISMS SCR DNS CHART SPECIAL 80253 [facility], PICKLESIM STAIN 5 LLC ER JR YEE GROUP 1 MICROORGA NISMS I&[place] [address] MEHRAN LAURENT INFUSION 5 [facility] THERAPY INC INC PROPHYLAX IS/DX EA HOUR 25 07035 MEHRAN LAURENT HYDROXY 5 [facility] INCLUDES INC INC FRACTIONS IF PERFORMED BLOOD 32812 MEHRAN LUARENT COUNT 5 [facility] COMPLETE INC INC AUTO&AUTO DIFRNTL WBC COLLECTIO 42391 MEHRAN LAURENT N VENOUS 5 [facility] BLOOD INC INC VENIPUNCT URE COMPREHEN 51470 MEHRAN LAURENT SIVE 5 [facility] [place] [address] MEHRAN LAURENT THYROID 5 [facility] STIMULATI INC INC NG HORMONE TSH CHEMODERV 10762 [facility]STIAN[facility] TOÑITO ATE 5 [facility] FACIAL/TR MEDICAL IGEM/CERV GROUP [facility] MIGRAINE RADIOLOGI 73977 MEHRAN LAURENT C 4 [facility] EXAMINATI INC INC ON CHEST SINGLE VIEW FRONTAL ECG 19980 MEHRAN DENT ROUTINE 4 [facility] W/LEAST P 12 LDS I&[place] [address] MEHRAN LAURENT TROPONIN 4 [facility] QUANTITAT INC INC [place] URNLS DIP 81161 MEHRAN LAURENT 4 [facility] STICK/TAB INC INC LET REAGENT AUTO MICROSCOP Y BLOOD 67829 MEHRAN LAURENT COUNT 4 [facility] COMPLETE INC INC AUTO&AUTO DIFRNTL WBC CREATINE 18981 MEHRAN LAURENT KINASE 4 [facility] TOTAL INC INC ECG 19811 MEHRAN LAURENT ROUTINE 4 [facility] ECG INC INC W/LEAST 12 LDS TRCG ONLY W/O I&R COMPREHEN 80850 MEHRAN LAURENT SIVE 4 [facility] METABOLIC INC INC PANEL CREATINE 83764 MEHRAN LAURENT KINASE MB 4 [facility] FRACTION INC INC ONLY DIAGNOSTI G0206 MEHRAN LAURENT C 4 [facility] MAMMOGRAP INC INC HY INCL CAD WHEN PERF; UNI US BREAST 27921 MEHRAN LAURENT REAL 4 [facility] HOSP TIME INC INC W/IMAGE DOCUMENTA TION SWALLOWIN 31817 AMARILIS Veloz FUN 4 RADIOLOGY W/CINERAD ASSOC IOGRAPY/V IDRADIOG [facility]- 61919 MEHRAN LAURENT AIDED 4 [facility] HOSP DETECTION INC INC SCREENING MAMMOGRAP HY SCREENING G0202 MEHRANZOYA LAURENT 4 [facility] MAMMOGRAP INC INC HY JOSELIN INCL CAD WHEN PERFORMD GASTRIC 17348 MEHRAN LAURENT EMPTYING 4 [facility] IMAGING INC INC STUDY TECHNETIU A9541 MEHRAN Amor TC-99M 4 [facility] SULFUR INC INC COLLOID DX UP TO 20 MCI LARYNGOSC 95228 [facility] VJ OPY 4 PHYSICIAN FRA FLEXIBLE S GROUP DIAGNOSTI C INJECTION 47110 [facility] TOÑITO 4 NEUROLOGY [facility] SINGLE/ML CENTER T TRIGGER [place] POINT 3/> MUSCLES INJECTION 67398 [facility] TOÑITO 4 [facility]UROLOGY [facility] C[facility] C AGENT [facility] NRV INJECTION J1030 [facility] TOÑITO 4 NEUROLOGY [facility] METHYLPRE CENTER DNISOLONE [place] ACETATE [address] [place] [address] MEHRAN LAURENT HPYLORI 4 [facility] INC SPECIAL [id number] [facility] STAIN 4 [facility] GROUP 1 [place]CRO[place]IS[place] [address] [facility]ARC[facility] SURG 4 [facility] PATHOLOGY GROSS&FEDE ROSCOPIC EXAM EGD 33983 [facility] SUJATHA SHAH TRANSORAL 4 PHYSICIAN MILY BIOPSY S GROUP SINGLE/MU LTIPLE INJECTION J1100 [facility] TOÑITO 4 NEUROLOGY MAURICE DEXAMETHO CENTER SONE [place] SODIUM PHOSPHATE 1 MG ARTHROCEN 05068 [facility] TOÑITO TESIS 4 NEUROLOGY MAURICE ASPIR&/IN CENTER J MAJOR KORINA JT/BURSA W/[place] [address] MEHRAN LAURENT TRANSVAGI 4 [facility] NAL INC INC 25 01240 LABORATOR LABORATOR HYDROXY 4 Y Y INCLUDES CORPORATI CORPORATI FRACTIONS [place] [address] LABORATOR LABORATOR FERRITIN 4 Y Y CORPORATI [place] [address] LABORATOR LABORATOR IRON 4 Y Y CORPORATI CORPORATI ON OF AM ON OF AM LIPID 87798 LABORATOR LABORATOR PANEL 4 Y Y CORPORATI CORPORATI ON OF AM ON OF AM GENERAL 06095 LABORATOR LABORATOR HEALTH 4 Y Y PANEL CORPORATI CORPORATI ON OF AM ON OF AM CYTP 41017 LABORATOR LABORATOR CERV/VAG 4 Y DEVENDRA OF Y DEVENDRA OF AUTO THIN MANISH MANISH LAYER H H PREP MNL SCREEN THERAPEUT 96688 [facility] CALLUM IC 4 [facility] PROPHYLAC MEDICAL TIC/DX GROUP INJECTION SUBQ/IM INJECTION J3301 [facility] CALLUM 4 [facility] TRIAMCINO MEDICAL LONE GROUP ACETONIDE NOS 10 MG TENS E0720 EMPI INC EMPI INC DEVICE 4 TWO LEAD LOCALIZED STIMULATI ON TENS E0730 EMPI INC EMPI INC DEVICE 4 4/MORE LEADS MULTI NERVE STIMULATI ON CULTURE 69568 LAB DEVENDRA LAB DEVENDRA BACTERIAL 4 MANISH MANISH HOLDINGS HOLDINGS QUANTTATI VE COLONY COUNT URINE 25 31933 LAB DEVENDRA LAB DEVENDRA HYDROXY 4 MANISH MANISH INCLUDES HOLDINGS HOLDINGS FRACTIONS IF PERFORMED CYANOCOBA 92005 LAB DEVENDRA LAB DEVENDRA DAVID 4 MANISH MANISH VITAMIN HOLDINGS HOLDINGS B-12 HEMOGLOBI 80530 LAB DEVENDRA LAB DEVENDRA N 4 MANISH MANISH GLYCOSYLA [place] [address] LAB DEVENDRA LAB DEVENDRA TRIIODOTH 4 MANISH MANISH YRONINE HOLDINGS HOLDINGS T3 FREE THERAPEUT 61643 CALLUM CALLUM IC 4 [facility] PROPHYLAC TIC/DX INJECTION SUBQ/IM INJECTION J3301 CALLUM CALLUM 4 [facility] TRIAMCINO LONE ACETONIDE NOS 10 [place] [address] LAB DEVENDRA LAB DEVENDRA THYROID 4 MANISH MANISH STIMULATI HOLDINGS [place] [address] LAB DEVENDRA LAB DEVENDRA FREE 4 MANISH MANISH [place] [address] LAB DEVENDRA LAB DEVENDRA IRON 4 AMNISH MANISH HOLDINGS HOLDINGS INJ J0702 FAYE MCKINNEY BETAMETHA 4 MAX MAX SONE ACETATE & PHOSPHATE 3 MG PHYSICAL 16199 [facility] 4 [facility] HOSP N TENS E0730 EMPI INC EMPI INC DEVICE 4 4/MORE LEADS MULTI NERVE STIMULATI ON MANUAL 56026 CROSSFIEL CROSSFIEL THERAPY 4 D KOLBY D KOLBY TQS 1/> REGIONS EACH 15 MINUTES THERAPEUT 99762 CROSSFIEL CROSSFIEL IC PX 1/> 4 D KOLBY D KOLBY AREAS EACH 15 MIN EXERCISES THERAPEUT 33042 CROSSFIEL CROSSFIEL IC PX 1/> 4 D KOLBY D KOLBY AREAS EACH 15 MIN EXERCISES MANUAL 73287 CROSSFIEL CROSSFIEL THERAPY 4 D KOLBY D KOLBY TQS 1/> REGIONS EACH 15 MINUTES THERAPEUT 11699 CROSSFIEL CROSSFIEL IC PX 1/> 4 D KOLBY D KOLBY AREAS EACH 15 MIN EXERCISES MANUAL 70291 CROSSFIEL CROSSFIEL THERAPY 4 D KOLBY D KOLBY TQS 1/> REGIONS EACH 15 MINUTES MANUAL 85451 CROSSFIEL CROSSFIEL THERAPY 4 D KOLBY D KOLBY TQS 1/> REGIONS EACH 15 MINUTES MANUAL 55398 CROSSFIEL CROSSFIEL THERAPY 4 D KOLBY D KOLBY TQS 1/> REGIONS EACH 15 MINUTES MANUAL 53380 CROSSFIEL CROSSFIEL THERAPY 4 D KOLBY D KOLBY TQS 1/> REGIONS EACH 15 MINUTES MANUAL 56588 CROSSFIEL CROSSFIEL THERAPY 4 D KOLBY D KOLBY TQS 1/> REGIONS EACH 15 MINUTES PHYSICAL 55540 PROFESSIO CROSSFIEL THERAPY 4 NAL REHAB D KOLBY EVALUATIO ASSOC N PSC DRUG SCR G0434 MARII HAM MARII HAM NOT 4 CHROMATOG RAPHIC; ANY NUMBER PT ENC MRI 90122 [facility] SPINAL 4 [facility] CANAL INC INC CERVICAL W/O CONTRAST MATRL 3D 26516 [facility] LAURENT RENDERING 4 [facility] W/INTERP INC INC & POSTPROCE SS SUPERVISI ON MRI 66092 [facility] LAURENT SPINAL 4 [facility] CANAL INC INC LUMBAR W/[place] [address] [facility] LAURENT HYDROXYIN 4 [facility] DOLACETIC INC [place] ACID 5-[place] [address] [facility] LAURENT VANILLYLM 4 [facility] ANDELIC INC INC ACID URINE METANEPHR 73900 [facility] LAURENT PHIL 4 [place] [address] [facility] LAURENT ALDOSTERO 4 [place] [address] ME[facility]AN LAURENT TRANSVAGI 4 [facility] NAL INC INC INJ J0702 FAYE FAYE BETAMETHA 4 MAX MAX SONE ACETATE & PHOSPHATE 3 MG THERAPEUT 31256 CALLUM LEONARDM IC 4 WHI WHI PROPHYLAC TIC/DX INJECTION SUBQ/IM INJECTION J3301 CALLUM CALLUM 4 WHI WHI TRIAMCINO LONE ACETONIDE NOS 10 MG COLLECTIO 95634 [facility] N VENOUS 3 [facility]LOOD [facility] VENIPUNCT URE COMPREHEN 27096 [facility] SIVE 3 [facility] [place] [address] [facility] AMYLASE 3 [facility] [place] [address] [facility] LIPASE 3 [facility]P PROTHROMB 88846 [facility] IN TIME 3 [facility] [place] [facility] [place] BOARD ECG 51986 [facility] ROUTINE 3 [facility] ECG HOSP HOSP W/LEAST 12 LDS TRCG ONLY W/O I&R THROMBOPL 89102 [facility] ASTIN 3 [facility] [place] [facility] TIME [facility]OS[facility] REG BOARD PARTIAL PLASMA/WH OLE BLOOD RADIOLOGI 20186 [facility] C 3 [facility] EXAMINATI HOSP HOSP ON CHEST SINGLE VIEW FRONTAL NATRIURET 26489 [facility] IC 3 [facility] [place] [address] [facility] TROPONIN 3 [facility] QUANTITAT [facility]OS[facility] [place] BLOOD 55104 [facility] COUNT 3 [facility] COMPLETE [facility] HOSP AUTO&[place] [address] [facility] ANGIOGRAP 3 RADIOLOGY RADIOLOGY HY CHEST ASSOC ASSOC W/CONTRAS T/NONCONT RAST GROUND A0425 [facility] MIKHAIL ELIZONDO PER CO EMS CO EMS STATUTE MILE [facility] A0427 [facility] 3 MIKHAIL ELIZONDO ALS CO EMS CO EMS EMERGENCY TRANSPORT LEVEL 1 Encounters Encounter Start End Date Code Location Performer Type Date OFFICE 40454 LUDMILA KEYS OUTPATIEN 7 7 T VISIT 15 MINUTES [facility] - 7 7 [facility] OUTPATIEN INC T OFFICE 81927 [facility] OUTPATIEN 7 7 [facility] T VISIT INC 10 MINUTES [facility] ME[facility]AN - 7 7 [facility] OUTPATIEN INC T [facility] - 7 7 [facility] OUTPATIEN INC T OFFICE 31371 [facility] OUTPATIEN 7 7 ORTHOPEDI T NEW 45 C MINUTES ASSOCIAT OFFICE 25658 ALEX JOHNSON OUTPATIEN 7 7 T VISIT 15 MINUTES OFFICE 20000 [facility] CONSULTAT 7 7 N ION NEUROLOGY NEW/ESTAB PATIENT 60 MIN OFFICE 89322 [facility] CLEVE OUTPATIEN 7 7 HEALTH T VISIT MEDICAL 25 GROUP MINUTES [facility] 7 7 N OUTPATIEN COMMUNTIY T HOSPITA OFFICE 45977 [facility] CLEVE OUTPATIEN 7 7 HEALTH T VISIT MEDICAL 25 GROUP MINUTES [facility] - 7 7 [facility] OUTPATIEN INC T OFFICE 02793 [facility] OUTPATIEN 7 7 [facility] T VISIT INC 10 MINUTES OFFICE 69784 [facility] OUTPATIEN 7 7 [facility] T VISIT INC 10 MINUTES [facility] - 7 7 [facility] OUTPATIEN INC T OFFICE 08658 [facility] SUJATHA SHAH OUTPATIEN 7 7 PHYSICIAN T VISIT S GROUP 15 MINUTES OFFICE 28589 CAROLE MOLINAE OUTPATIEN 7 7 MEDICAL HERRERA T VISIT SERV 25 FOUNDATIO MINUTES N HOSPITAL [facility] - 7 7 [facility] OUTPATIEN INC T [facility] - 7 7 [facility] OUTPATIEN INC T OFFICE 38421 [facility] ALLKEVEN OUTPATIEN 7 7 PHYSICIAN T VISIT S GROUP 15 MINUTES HOSPITAL [facility] - 7 7 [facility] OUTPATIEN INC T OFFICE 14369 PAVAN BUX OUTPATIEN 7 7 MD ERVIN, T VISIT PSC 10 MINUTES [facility]OSPITAL [facility] - 7 7 [facility] OUTPATIEN INC T EMERGENCY 92094 MARAL GARCIA DEPT 7 7 PHYSICIAN VISIT S, [facility] HIGH SEVERITY& THREAT FUNJ EMERGENCY 47808 [facility] 7 7 [facility] DEPARTMEN INC T VISIT HIGH/URGE NT SEVERITY [facility]OSP[facility] - 7 7 [facility] OUTPATIEN INC T [facility] - 7 7 [facility] OUTPATIEN INC T OFFICE 19150 [facility] ANDREW MCCRACKENPATIEN 7 7 PHYSICIAN OGHADDAM T VISIT S GROUP 15 MINUTES HOSPITAL [facility] - 6 6 [facility] OUTPATIEN INC T OFFICE 80396 PAVAN BAKARIX OUTPATIEN 6 6 MD ERVIN, T VISIT PSC 10 MINUTES HOSPITAL [facility] - 6 6 [facility] OUTPATIEN INC T OFFICE 46097 [place] CONSULTAT 6 6 MEDICAL ION SERV NEW/ESTAB FOUNDATIO PATIENT N 30 MIN [facility]OSPITAL [facility] - 6 6 [facility] OUTPATIEN INC T [facility] - 6 6 [facility] OUTPATIEN INC T OFFICE 47918 [facility]IANITYDanay CHIU OUTPATIEN 6 6 HEALTH T VISIT MEDICAL 15 GROUP MINUTES OFFICE 07048 [facility] OUTPATIEN 6 6 [facility] T VISIT INC 10 MINUTES OFFICE 80825 PAVAN PINO OUTPATIEN 6 6 MD ERVIN, T VISIT PSC 15 MINUTES HOSPITAL [facility] - 6 6 [facility] OUTPATIEN INC [facility] MEHRAN - 6 6 [facility] OUTPATIEN INC T OFFICE 87400 [facility] SAMIA KIM OUTPATIEN 6 6 NURSE T VISIT PRACTITIO 15 NER GR MINUTES EMERGENCY 21449 [facility] 6 6 [facility] DEPARTMEN INC T VISIT LOW/MODER SEVERITY [facility]OSPITAL [facility] - 6 6 [facility] OUTPATIEN INC [facility] 6 N OUTPATIEN COMMUNTIY T HOSPITA OFFICE 58422 [facility] ANDREW OUTPATIEN 6 6 PHYSICIAN TAWANNA T VISIT S GROUP 15 MINUTES OFFICE 84515 [facility] OUTPATIEN 6 6 [facility] T VISIT INC 10 MINUTES HOSPITAL [facility] - 6 6 [facility] OUTPATIEN INC T OFFICE 22406 [facility] SAMIA KIM OUTPATIEN 6 6 NURSE T NEW 30 PRACTITIO MINUTES NER GR OFFICE 44140 [facility] MORRIN OUTPATIEN 6 6 HEALTH T VISIT MEDICAL 15 GROUP MINUTES OFFICE 44581 [facility] OUTPATIEN 6 6 [facility] T VISIT INC 10 MINUTES OFFICE 43134 PAVAN MONTANO OUTPATIEN 6 6 MD ERVIN, T VISIT PSC 15 MINUTES HOSPITAL [facility] - 6 6 [facility] OUTPATIEN INC T [facility] - 6 6 [facility] OUTPATIEN INC T OFFICE 73091 JOSE GO TRA OUTPATIEN 6 6 T VISIT ORTHOPAED 15 ICS PSC MINUTES OFFICE 68955 JUDD RODRIGUES OUTPATIEN 6 6 HEALTH T VISIT MEDICAL 15 GROUP MINUTES HOSPITAL [facility] - 6 6 [facility] OUTPATIEN INC T OFFICE 16982 JOSE GO OUTPATIEN 6 6 T VISIT ORTHOPAED 15 ICS PSC MINUTES OFFICE 08303 [facility]AN OUTPATIEN 6 6 [facility] T VISIT INC 10 MINUTES OFFICE 36135 PAVAN MONTANO OUTPATIEN 6 6 MD ERVIN, T VISIT PSC 15 MINUTES HOSPITAL [facility] - 6 6 [facility] OUTPATIEN INC T OFFICE 02521 MEHRAN DE LA O OUTPATIEN 6 6 [facility] 15 MINUTES OFFICE 95303 CAROLE ESCAMILLA OUTPATIEN 6 6 MEDICAL PAD T VISIT SERV 25 FOUNDATIO MINUTES [facility] MEHRAN - 6 6 [facility] OUTPATIEN INC T OFFICE 01567 MEHRAN OUTPATIEN 6 6 [facility] T VISIT INC 10 MINUTES OFFICE 77978 PAVAN MONTANO OUTPATIEN 6 6 MD ERVIN, T VISIT PSC 15 MINUTES OFFICE 18561 [facility] Medicine HOLLY T NEW 45 MINUTES [facility] - 6 6 [facility] OUTPATIEN & [facility] OFFICE 29623 MEHRAN DE LA O OUTPATIEN 6 6 [facility] 15 MINUTES OFFICE 37477 JUDD RODRIGUES OUTPATIEN 6 6 HEALTH T VISIT MEDICAL 15 GROUP MINUTES OFFICE 40354 [facility] [place] OUTPATIEN 6 6 HEALTH T VISIT MEDICAL 25 GROUP MINUTES OFFICE 64426 CAROLE JOHNSON OUTPATIEN 6 6 MEDICAL CLA T VISIT SERV 15 FOUNDATIO MINUTES N OFFICE 05173 [facility] ANDREW OUTPATIEN 6 6 PHYSICIAN TAWANNA [facility] MEHRAN - 6 6 [facility] OUTPATIEN INC T OFFICE 03566 PAVAN PINO [facility] OUTPATIEN 6 6 MD ERVIN, T [facility] 30 [facility] MEHRAN - 6 6 [facility] OUTPATIEN INC T OFFICE 04289 MEHRANZOYA SHARMA OUTPATIEN [address] [facility] 15 MINUTES OFFICE 13536 JUDD RODRIGUES OUTPATIEN 6 6 HEALTH YANY T VISIT MEDICAL 25 [facility] MEHRAN - 6 6 [facility] OUTPATIEN INC T OFFICE 83511 CAROLE RODRIGUEZ OUTPATIEN 6 6 MEDICAL MEGAN T VISIT SERV 15 FOUNDATIO MINUTES N OFFICE 31162 [facility]ST[facility] KENDRICK DAHL OUTPATIEN 6 6 HEALTH T VISIT MEDICAL 25 GROUP MINUTES OFFICE 73400 MEHRAN JIMENEZ [facility] OUTPATIEN 6 6 [facility] 15 MINUTES OFFICE 15621 MEHRAN [facility] OUTPATIEN 6 6 [facility] 15 [facility]PITAL MEHRAN - 6 6 [facility] OUTPATIEN INC T EMERGENCY 93564 MARAL GARCIA 6 6 PHYSICIAN FOR DEPARTMEN S, [facility] T VISIT HIGH/URGE NT SEVERITY OFFICE 14994 MEHRAN SHARMA OUTPATIEN [address] [facility] 15 MINUTES EMERGENCY 02970 MARAL GRANT DEPT 5 5 PHYSICIAN U KOLBY VISIT S, PLLC HIGH SEVERITY& THREAT [facility] OUTPATIEN INC T OFFICE 61048 [facility] MORRIN OUTPATIEN 5 5 HEALTH YANY T VISIT MEDICAL 15 GROUP MINUTES OFFICE 85379 GASTROENT CASE JUS CONSULTAT 5 5 EROLOGY ION AND NEW/ESTAB HEPATOL PATIENT 60 MIN OFFICE [address] OUTPATIEN 5 5 [facility] 15 MINUTES OFFICE 59216 [facility] SUJATHA JR OUTPATIEN 5 5 PHYSICIAN MILY T VISIT S GROUP 15 MINUTES OFFICE 28809 [facility]IANITY LIZETTRIN OUTPATIEN 5 5 HEALTH YANY T VISIT MEDICAL 25 GROUP MINUTES [facility] MEHRAN - 5 5 [facility] OUT[facility] INC T OFFICE 63891 CAROLE RODRIGUEZ OUTPATIEN 5 5 MEDICAL MEGAN T VISIT SERV 10 FOUNDATIO MINUTES N OFFICE 81884 [facility]STIANITY LIZETTRIN OUTPATIEN 5 5 HEALTH YANY T VISIT MEDICAL 15 GROUP MINUTES OFFICE 32978 [facility]STIANITY KASEY MONREAL OUTPATIEN 5 5 HEALTH T VISIT MEDICAL 25 GROUP MINUTES OFFICE 59256 CAROLE JOHNSON OUTPATIEN 5 5 MEDICAL CLA T VISIT SERV 10 FOUNDATIO MINUTES N OFFICE 55809 [facility] TAYLOR CONSULTAT 5 5 HEALTH OFE ION MEDICAL NEW/ESTAB GROUP PATIENT 40 MIN OFFICE 65241 [place] TEAGAN ANT OUTPATIEN 5 5 MEDICAL T VISIT SERV 25 FOUNDATIO MINUTES N OFFICE 47442 [facility]RISTIANITY APPLE OUTPATIEN 5 5 HEALTH ANT T VISIT MEDICAL 15 GROUP MINUTES HOSPITAL [facility] - 5 5 [facility] OUTPATIEN INC T EMERGENCY 38942 UNIVERSIT DEPT 5 5 Y VISIT HOSPITAL HIGH SEVERITY& THREAT FUN OFFICE 55163 [place] HANKS CONSULTAT 5 5 MEDICAL MAX ION SERV NEW/ESTAB FOUNDATIO PATIENT N 60 MIN HOSPITAL UNIVERSIT - 5 5 Y OUTPATIEN HOSPITAL T EMERGENCY 74470 CAROLE WHITE 5 5 MEDICAL SET DEPARTMEN SERV T VISIT FOUNDATIO HIGH/URGE N NT SEVERITY EMERGENCY 72874 [facility]TRAL DEPT 5 5 [facility]IANITY VISIT HOSP HIGH SEVERITY& THREAT [facility] 5 5 [facility] OUTPATIEN HOSP T OFFICE 68607 [facility]IANITY KASEY MONREAL OUTPATIEN 5 5 HEALTH T VISIT MEDICAL 15 GROUP MINUTES OFFICE 08254 CHRISTIANITY TOÑITO OUTPATIEN 5 5 HEALTH MAURICE T VISIT MEDICAL 15 GROUP MINUTES [facility]OSPITAL [facility] - 5 5 [facility] OUTPATIEN INC T [facility]PITAL MEHRAN - 5 5 [facility] OUTPATIEN INC T OFFICE 49757 [place] TEAGAN ANT OUTPATIEN 5 5 MEDICAL T VISIT SERV 25 FOUNDATIO MINUTES N HOSPITAL MEHRAN - 5 5 [facility] OUTPATIEN INC T OFFICE 98070 [place] TEAGAN ANT OUTPATIEN 5 5 MEDICAL T NEW 45 SERV MINUTES FOUNDATIO N OFFICE 82427 [facility]RISTIANITY TOÑITO OUTPATIEN 5 5 HEALTH MAURICE T VISIT MEDICAL 15 GROUP MINUTES OFFICE 55487 [facility] VJ OUTPATIEN 4 4 PHYSICIAN FRA T VISIT S GROUP 15 MINUTES HOSPITAL [facility] - 4 4 [facility] OUTPATIEN INC T EMERGENCY 33150 MEHRAN 4 4 [facility] DEPARTMEN INC T VISIT MODERATE SEVERITY OFFICE 32324 [facility] ALLKEVEN JR OUTPATIEN 4 4 PHYSICIAN MILY T VISIT S GROUP 15 MINUTES HOSPITAL [facility] - 4 4 [facility] OUTPATIEN INC T OFFICE 59766 CH[facility]STIANITY TOÑITO OUTPATIEN 4 4 NEUROLOGY [facility]URICE T VISIT CENTER 25 KORINA MINUTES HOSPITAL CENTRAL - 4 4 [facility] OUTPATIEN HOSP [facility] MEHRAN - 4 4 [facility] OUTPATIEN INC T OFFICE 30250 SIMON CHIU OUTPATIEN 4 4 ANT T VISIT CARDIOLOG 15 Y [facility] MEHRAN - 4 4 [facility] OUTPATIEN INC T OFFICE 62265 FAYE MCKINNEY OUTPATIEN 4 4 MAX MAX T VISIT 15 MINUTES OFFICE 61900 [facility] VJ OUTPATIEN 4 4 PHYSICIAN FRA T NEW 30 S GROUP MINUTES OFFICE 57687 [facility] SUJATHA JR OUTPATIEN 4 4 PHYSICIAN MILY T VISIT S GROUP 15 MINUTES HOSPITAL [facility] - 4 4 [facility] OUTPATIEN INC T OFFICE 10695 [facility]STIANITY TOÑITO OUTPATIEN 4 4 NEUROLOGY MAURICE T VISIT CENTER 25 KORINA MINUTES OFFICE 58769 SIMON [place] OUTPATIEN 4 4 STEAM FITTER CAROL ANN T NEW 30 ASSOCIATE MINUTES S, OFFICE 96561 [facility] SUJATHA SHAH OUTPATIEN 4 4 PHYSICIAN MILY T NEW 30 S GROUP MINUTES HOSPITAL [facility] - 4 4 [facility] OUTPATIEN INC T OFFICE 88736 [facility]STIANITY TOÑITO OUTPATIEN 4 4 NEUROLOGY MAURICE T VISIT CENTER 25 KORINA MINUTES PERIODIC 63723 CALLUM LEONARDM PREVENTIV 4 4 WHI WHI E MED EST PATIENT 40-64YRS OFFICE 77534 [facility]ITY CALLUM OUTPATIEN 4 4 HEALTH WHI T VISIT MEDICAL 15 GROUP MINUTES OFFICE 16917 CALLUM CALLUM OUTPATIEN 4 4 WHI WHI T VISIT 25 MINUTES OFFICE 28989 APPLE CHIU OUTPATIEN 4 4 ANT ANT T VISIT 15 MINUTES OFFICE 93183 FAYE MCKINNEY OUTPATIEN 4 4 MAX MAX T VISIT 15 MINUTES HOSPITAL CENTRAL - 4 4 [facility] OUTPATIEN HOSP T OFFICE 88850 VASCELLO VASCELLO OUTPATIEN 4 4 GIANNI GIANNI T VISIT 25 MINUTES OFFICE 88566 AP[facility] CHIU OUTPATIEN 4 4 ANT ANT T VISIT 15 MINUTES OFFICE 37142 MARII HAM MARII HAM OUTPATIEN 4 4 T NEW 45 MINUTES OFFICE 25555 CALLUM CALLUM OUTPATIEN 4 4 I WHI T VISIT 15 MINUTES OFFICE 77105 GO TRA GO TRA OUTPATIEN 4 4 T VISIT 15 MINUTES OFFICE 73866 CALLUM CALLUM OUTPATIEN 4 4 WHI WHI T VISIT 25 MINUTES OFFICE 66648 APPLE CHIU OUTPATIEN 4 4 ANT ANT T VISIT 15 MINUTES HOSPITAL UNIVERSIT - 4 4 Y OUTPATIWESTERLY HOSPITAL OFFICE 49748 UNIVERSIT OUTPATIEN 4 4 Y T VISIT 5 HOSPITAL MINUTES HOSPITAL [facility] - 4 4 [facility] OUTPATIEN [facility] MEHRAN - 4 4 [facility] OUTPATIEN INC [facility]HR[facility] - 4 4 [facility] OUTPATIEN INC T OFFICE 38822 GO TRA GO TRA CONSULTAT 4 4 ION NEW/ESTAB PATIENT 60 MIN OFFICE 41904 APPLE CHIU OUTPATIEN 4 4 ANT ANT T VISIT 25 MINUTES OFFICE 46334 ARNOLD ARNOLD OUTPATIEN 4 4 MAX MAX T NEW 30 MINUTES OFFICE 28805 CALLUMMt LEONARDM OUTPATIEN 4 4 WHI WHI T VISIT 25 MINUTES Emergency AMI Villeda MD (ER) 3 22:53 3 00:33 [facility] CENTRAL - 3 3 [facility] OUTPATIEN HOSP T EMERGENCY 72002 [facility] 3 3 [facility] DEPARTMEN HOSP T VISIT MODERATE SEVERITY EMERGENCY 00842 [facility] [place] L[place] DEPT 3 3 EMERGENCY VISIT PHYS PSC HIGH SEVERITY& THREAT FUNCJ Emergency AMI Dent MD (ER) 3 19:06 3 20:57 [facility] Emergency AMI SANCHEZ (ER) 3 21:25 3 01:44 [facility]
--- OUTSIDE RECORDS SUMMARY | 2017-07-01 21:46 | External Medical Summary Rpt ---
Author Author , MARLA Ochoa MARLA Address Unknown Phone [email or web address] Team Providers Care Undercover Cop Name Role Phone ALLRAN JR, ALLRAN JR Unavailable Unavailable ALLRAN JR MILY, ALLRAN Unavailable Unavailable JR MILY PAVAN MUELLER MD, PSC, Unavailable Unavailable PAVAN MUELLER MD, PSC ARNOLD MAX, ARNOLD Unavailable Unavailable MAX ARNOLD MAX, ARNOLD Unavailable Unavailable MAX [facility] Unavailable Unavailable MEDICAL GROUP, [facility] Unavailable Unavailable [facility], [facility] BEINEKE, BEINEKE Unavailable Unavailable JIMENEZ TER, JIMENEZ TER Unavailable Unavailable BESSON OFE, BESSON Unavailable Unavailable [facility] Unavailable Unavailable [facility] PSC, [facility] SANTIAGO, SANTIAGO Unavailable Unavailable TEAGAN ANT, TEAGAN ANT Unavailable Unavailable MICHAEL, MICHAEL Unavailable Unavailable MICHAEL MEGAN, MICHAEL Unavailable Unavailable MEGAN [facility] Unavailable Unavailable SERVICE, [facility] SERVICE [facility] Unavailable Unavailable SERVICE, [facility] BUX, BUX Unavailable Unavailable BUX ANJ, BUX ANJ Unavailable Unavailable [facility], Unavailable Unavailable LLC, [facility], Unavailable Unavailable LLC, [facility] Unavailable Unavailable CONSULTANTS O, [facility] CASE JUS, CASE JUS Unavailable Unavailable [facility], Unavailable Unavailable [facility] Unavailable Unavailable PHYS PSC, [...] CLA JAROD FEDE, JAROD Unavailable Unavailable [facility], Unavailable Unavailable [facility] Unavailable Unavailable EMS, [facility] EMS CALLUM WHI, CALLUM Unavailable Unavailable WHI CALLUM WHI, CALLUM Unavailable Unavailable I [facility] Un[facility] Unavailable INC, [facility] Unavailable Unavailable HOSPITAL, [facility] Unavailable Unavailable HOSPITAL P, [facility], Unavailable Unavailable [facility] GO, GO Unavailable Unavailable GO TRA, GO TRA Unavailable Unavailable GO TRA, GO TRA Unavailable Unavailable ESPINOSA LEL, ESPINOSA LEL Unavailable Unavailable [facility] & Unavailable [facility], [facility] Unavailable Unavailable IMAGING ASS, [facility] Unavailable Unavailable ASSOCIAT, [facility] TAYLOR OFE, TAYLOR Unavailable Unavailable [...] DWI, BRIAN Unavailable Unavailable JR DWI [facility] Unavailable Unavailable ASSOCIATES,, [facility], GARCIA MAX, GARCIA Unavailable Unavailable MAX [...] Unavailable MAX [facility] Unavailable Unavailable SERV 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 R, 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 Unavailable Unavailable 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 R, 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 R MONGIARDO FRA, Unavailable Unavailable MONGIARDO FRA MORRIN, MORRIN Unavailable Unavailable MORRIN YANY, MORRIN Unavailable Unavailable YANY [facility] Unavailable Unavailable BOARD, [facility], [...] Unavailable FRANCINE [facility] Unavailable Unavailable [facility] Medicine, [facility] Unavailable Unavailable [facility], Unavailable Unavailable [facility] VASCELLO GIANNI, Unavailable Unavailable VASCELLO GIANNI VASCELLO GIANNI, Unavailable Unavailable VASCELLO GIANNI WALKER, WALKER Unavailable Unavailable WALKER FOR, WALKER Unavailable Unavailable FOR HAROLDO HERRERA, HAROLDO Unavailable Unavailable HERRERA WHITE JUDY, WHITE JUDY Unavailable Unavailable Purpose Continuity of Care Document - 09-05-2013 through 2016 Problems Code Diagnosis DOS Provider Status [id number] OTHER 05-25-2017 L[facility] VITREOUS OPACITIES RIGHT EYE [...] 05-06-2017 COMMUNITY UNSPECIFIED ANESTH OF THE BLUE [id number] ENCOUNTER 05-01-2017 [facility] FOR OTHER [facility] PREPROCEDUR INC AL EXAMINATION Z0100 ENCOUNTER 04-27-2017 LUD[facility]IL[facility] EXAM EYES & VISION W/O ABNORMAL FIND M7062 TROCHANTERI 04-20-2017 GRACE Kellogg [facility] LEFT HIP ASSOCIAT [id number] LATTICE 04-15-2017 ALEX DEGENERATIO N OF RETINA BILATERAL H5310 UNSPECIFIED 04-15-2017 ALEX SUBJECTIVE VISUAL DISTURBANCE S Q0700 ARNOLD-KEAGAN 04-15-2017 ALEX RI SYND W/O SPINA BIFIDA/HYDR OCEPHLUS V62576 MIGRAINE 04-09-2017 [facility] W/O AURA NEUROLOGY INTRACT W/O STAT MIGRAINOSUS G8929 OTHER 04-09-2017 RELIGION CHRONIC HEALTH PAIN MEDICAL GROUP J0140 ACUTE 04-09-2017 RELIGION PANSINUSITI HEALTH S MEDICAL UNSPECIFIED GROUP L56400 PAIN IN 04-09-2017 RELIGION LEFT HIP HEALTH MEDICAL GROUP R51 HEADACHE 04-09-2017 [facility] R600 LOCALIZED 04-09-2017 [facility] EDEMA COMM[facility]TIY HOSPITA E039 HYPOTHYROID 04-02-2017 RELIGION ISM HEALTH UNSPECIFIED MEDICAL GROUP J0100 ACUTE 04-02-2017 RELIGION MAXILLARY HEALTH SINUSITIS MEDICAL UNSPECIFIED GROUP M549 DORSALGIA 04-02-2017 RELIGION UNSPECIFIED HEALTH MEDICAL GROUP M5412 RADICULOPAT 03-16-2017 [facility] HY CERVICAL [facility] H[facility] REGION INC M5416 RADICULOPAT 03-16-2017 [facility] HY LUMBAR [facility] REGION INC K3184 GASTROPARES 02-06-2017 [facility] IS PHYSICIANS GROUP D259 LEIOMYOMA 02-05-2017 [place] [facility]ICAL OF UTER[place] SERV UNSPECIFIED FOUNDATION I10 ESSENTIAL 02-05-2017 [place] [facility] PRIMARY SERV HYPERTENSIO FOUNDATION N G90452 UNSPECIFIED 02-05-2017 [place] [facility]ICAL OVARIAN SERV CYST RIGHT FOUNDATION SIDE U20724 UNSPECIFIED 02-05-2017 [place] [facility] OVARIAN SERV CYST LEFT FOUNDATION SIDE N898 OTHER 02-05-2017 [place] [facility]ICAL SPECIFIED SERV NONINFLAMMA FOUNDATION TORY DISORDERS VAGINA R978 OTHER 02-05-2017 [place] [facility]ICAL ABNORMAL SERV TUMOR FOUNDATION MARKERS Z8041 FAMILY 02-05-2017 [place] MEDICAL HISTORY OF SERV MALIGNANT FOUNDATION NEOPLASM OF OVARY R1032 LEFT LOWER 01-30-2017 [place] [facility] PAIN IMAGING ASS R1013 EPIGASTRIC 01-20-2017 COMMUNITY PAIN ANESTH OF THE BLUE K651 PERITONEAL 01-05-2017 [facility] ABSCESS PHYSICIANS GROUP G4719 OTHER [...] 12-11-2016 LAB DEVENDRA OF [facility] MICTURITION HOLDINGS I01652 UNSPECIFIED 11-10-2016 [facility] OVARIAN [facility] CYST INC UNSPECIFIED SIDE M791 MYALGIA 10-17-2016 [facility] INC G909 DISORDER 09-30-2016 RELIGION THE [facility] AUTONOMIC MEDICAL NERVOUS GROUP SYSTEM UNS R072 PRECORDIAL 09-30-2016 RELIGION PAIN HEALTH MEDICAL GROUP E782 MIXED 09-26-2016 LAB DEVENDRA HYPERLIPIDE MANISH HERIBERTO HOLDINGS R67062 ENCOUNTER 09-26-2016 [facility] ORDER [facility] GENERAL RTN W/O ABNORMAL FIND Z1151 ENCOUNTER 09-26-2016 [facility], FOR LLC SCREENING FOR HUMAN PAPILLOMAVI IVET L659 NONSCARRING 09-12-2016 [facility] HAIR LOSS [facility] UNSPECIFIED INC S19640T LAC W/O FB 09-01-2016 [facility] RT MIDDLE [facility] FINGER W/O INC DAMAGE NAIL INIT U14408H LAC W/O FB 09-01-2016 MARAL UNS FINGER PHYSICIANS, W/O DAMAGE PLLC NAIL INITIAL S386HNM CONTACT OTH 09-01-2016 [facility] SHARP [facility] OBJECT NOT INC ELSWHERE CLASS INIT [id number] KITCHEN 09-01-2016 [facility] SINGLE-FAM MEM [facility] HOUSE PLACE INC OCCUR EXT CAUSE Z23 ENCOUNTER 09-01-2016 [facility] FOR [facility] IMMUNIZATIO INC N M4806 SPINAL 08-27-2016 [facility] STENOSIS COMMUNTIY LUMBAR HOSPITA REGION M5126 OTH 08-27-2016 [facility] INTERVERTEB COMMUNTIY RAL DISC HOSPITA DISPLACEMEN T LUMBAR RGN M542 CERVICALGIA 08-25-2016 [facility] PHYSICIANS GROUP D229 MELANOCYTIC 08-07-2016 [facility] NURSE NEVI PRACTITIONE UNSPECIFIED R GR I868 VARICOSE 08-07-2016 [facility] NURSE VEINS OF PRACTITIONE OTHER R GR SPECIFIED SITES L709 ACNE 08-07-2016 [facility] NURSE UNSPECIFIED PRACTITIONE R GR R601 GENERALIZED 08-05-2016 LAB DEVENDRA EDEMA MANISH HOLDINGS M8580 OTH SPEC 07-08-2016 RELIGION D/O [facility] DENSITY MEDICAL STRUCTURE GROUP UNS SITE M545 LOW BACK 07-03-2016 [facility] PAIN [facility]THOP[facility]IC S PSC M461 SACROILIITI 06-27-2016 [facility] S NOT MEM HOSP ELSEWHERE INC CLASSIFIED H5213 MYOPIA 06-12-2016 [place] [facility] BILATERAL SERV FOUNDATION H5319 OTHER 06-12-2016 [place] [facility] SUBJECTIVE SERV VISUAL FOUNDATION DISTURBANCE S G34167 CHRONIC 05-14-2016 RELIGION MIGRAINE HEALTH W/O AURA MEDICAL INTRACT W/O GROUP STAT MIGR M810 AGE-RELATED 05-09-2016 [facility] OSTEOPOROSI INC S W/O CURRNT PATH FX Z1231 ENCOUNTER 05-09-2016 [place] SCREENING MEDICAL MAMMO MALIG IMAGING ASS NEOPLASM BREAST S59471 ENCOUNTER 05-09-2016 [place] FOR MEDICAL SCREENING IMAGING ASS FOR OSTEOPOROSI S K5909 OTHER 05-06-2016 [facility] CONSTIPATIO Medicine N K591 FUNCTIONAL 05-06-2016 [facility] DIARRHEA Medicine M4800 SPINAL 05-06-2016 [facility] UNSPECIFIED R140 ABDOMINAL 05-06-2016 [facility] DISTENSION Medicine GASEOUS R6881 EARLY 05-06-2016 [facility] SATIETY Medicine R5382 CHRONIC 04-29-2016 RELIGION FAT[facility]UE [facility] UNSPECIFIED MEDICAL GROUP R5383 OTHER 04-18-2016 LAB DEVENDRA FATIGUE MANISH HOLDINGS R42 DIZZINESS 04-07-2016 [facility] AND PHYSICIANS GIDDINESS GROUP [id number] CONCUSSION 04-07-2016 [facility] WITHOUT LOC PHYSICIANS INITIAL GROUP ENCOUNTER A43149 ACUTE 03-02-2016 [facility] SUPPURATIVE MEMORIAL OM W/O HOSPITAL RUPT EAR DRUM UNS EAR R110 NAUSEA 02-27-2016 RELIGION HEALTH MEDICAL GROUP C062B0E CONCUSSION 02-27-2016 RELIGION W/LOC UNS HEALTH DURATION MEDICAL INITIAL GROUP ENCOUNTER M1611 UNILATERAL 01-29-2016 [place] PRIMARY MEDICAL OSTEOARTHRI IMAGING ASS TIS RIGHT HIP [id number] PAIN IN 01-29-2016 [place] RIGHT HIP MEDICAL IMAGING ASS H5210 MYOPIA 01-15-2016 [place] MEDICAL UNSPECIFIED SERV EYE FOUNDATION H5203 HYPERMETROP 12-27-2015 L[place] IA GRE BILATERAL J069 ACUTE UPPER 12-13-2015 LAB DEVENDRA MANISH RESPIRATORY HOLDINGS INFECTION UNSPECIFIED R928 OTH ABNORM 12-13-2015 RELIGION & HEALTH INCONCLUSIV MEDICAL E FIND ON GROUP DX IMAG BREAST Z6829 BODY MASS 12-13-2015 RELIGION INDEX BMI HEALTH 29.0-29.9 MEDICAL ADULT GROUP J0190 ACUTE 12-09-2015 [place] SINUSITIS [facility] R05 COUGH 11-16-2015 MARALRadha [address]UDILLO, [facility] M5430 SCIATICA 10-17-2015 RELIGION UNSPECIFIED HEALTH SIDE MEDICAL GROUP H539 UNSPECIFIED 10-04-2015 RELIGION VISUAL HEALTH DISTURBANCE MEDICAL GROUP R358 OTHER 10-04-2015 RELIGION POLYURIA HEALTH MEDICAL GROUP R079 CHEST PAIN 10-02-2015 [place] MEDICAL UNSPECIFIED SERV FOUNDATION R9431 ABNORMAL 10-02-2015 [facility] ELECTROCARD LAR IOGRAM CONSULTANTS O Y81205 OTHER LONG 10-01-2015 [facility] TERM PHYSICIANS CURRENT GROUP DRUG THERAPY Z0000 ENCOUNTER 09-25-2015 RELIGION GEN ADULT HEALTH MED EXAM MEDICAL W/O GROUP ABNORMAL FIND A6000 HERPESVIRAL 08-17-2015 RELIGION INFECTION HEALTH OF MEDICAL UROGENITAL GROUP SYSTEM UNS B009 HERPESVIRAL 08-17-2015 RELIGION INFECTION HEALTH UNSPECIFIED MEDICAL GROUP Z202 CONTACT 08-17-2015 RELIGION WITH HEALTH EXPOSURE MEDICAL INFECT GROUP SEXUAL MODE TRANSMS 97867 DEGEN 07-26-2015 [place] LUMBAR/LUMB MEDICAL OSACRAL IMAGING ASS INTERVERTEB RAL DISC 7242 LUMBAGO 07-26-2015 [place] [facility] IM[facility] ASS 01615 PROGRESSIVE 07-25-2015 [place] [facility] HIGH SERV MYOPIA FOUNDATION 79435 CHRONIC 07-11-2015 RELIGION MIGRAINE HEALTH W/O MEDICAL W/INTRACTAB GROUP LE W/O SM 7231 CERVICALGIA 07-11-2015 [facility] 7049 UNSPECIFIED 07-02-2015 RELIGION DISEASE OF HEALTH HAIR AND MEDICAL HAIR GROUP FOLLICLES 7245 UNSPECIFIED 07-02-2015 RELIGION BACKACHE HEALTH MEDICAL GROUP 7881 DYSURIA 07-02-2015 LAB DEVENDRA MAN[facility] HOLDINGS 3384 CHRONIC 06-22-2015 LAB DEVENDRA PAIN MANISH SYNDROME HOLDINGS 5990 URINARY 06-22-2015 LAB DEVENDRA TRACT MANISH INFECTION HOLDINGS SITE NOT SPECIFIED 75661 OTHER 06-15-2015 [place] [facility]ICAL VITREOUS SERV OPACITIES FOUNDATION 5363 GASTROPARES 05-14-2015 [place] [facility] IS SERV FOUNDATION 5609 UNSPECIFIED 05-14-2015 [place] [facility] INTESTINAL SERV FOUNDATION OBSTRUCTION 7873 FLATULENCE 05-14-2015 [place] [facility] ERUCTATION SERV AND GAS FOUNDATION PAIN 4011 ESSENTIAL 05-01-2015 RELIGION HYPERTENSIO HEALTH N, BENIGN MEDICAL GROUP 02751 ACUTE 05-01-2015 RELIGION IDIOPATHIC HEALTH PERICARDITI MEDICAL S GROUP 56400 OTHER CHEST 05-01-2015 RELIGION PAIN [facility] MEDICAL GROUP V7281 PRE-OPERATI 05-01-2015 [facility] CARDIOVASCU MEDICAL LAR GROUP EXAMINATION 7213 LUMBOSACRAL 04-23-2015 [place] MEDICAL SPONDYLOSIS IMAGING ASS WITHOUT MYELOPATHY 82234 DISPLCMT 04-23-2015 [place] LUMBAR [facility] NORTH INTERVERT IMAGING ASS DISC W/O MYELOPATHY 08170 LATTICE 04-20-2015 [place] MEDICAL DEGENERATIO SERV N OF FOUNDATION PERIPHERAL RETINA 2449 UNSPECIFIED 04-08-2015 [facility] HYPOTHYROID ISM 3671 MYOPIA 04-08-2015 [facility] 80423 OTHER 04-08-2015 [facility] DISTORTIONS AND ENTOPTIC PHENOMENA 3688 OTHER 04-08-2015 [place] MEDICAL SPECIFIED SERV VISUAL FOUNDATION DISTURBANCE S 41606 PAIN IN OR 04-08-2015 [facility] 4019 UNSPECIFIED 04-08-2015 [facility] HYPERTENSIO N 4239 UNSPECIFIED 04-08-2015 [place] DISEASE [facility] PERICARDIUM 4289 UNSPECIFIED 04-08-2015 [facility] FAILURE SERV 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 R 89512 OTHER 04-08-2015 [facility] LUNG NOT ELSEWHERE CLASSIFIED 48494 CHEST PAIN 04-08-2015 [place] MEDICAL UNSPECIFIED SERV FOUNDATION V1259 PERS HX, 04-08-2015 [place] [facility]ICAL OTHER SERV DISEASES OF FOUNDATION CIRCULATORY SYSTEM 3699 UNSPECIFIED 04-07-2015 [facility] VISUAL EMERGENCY LOSS PHYS PSC 89298 UNSPECIFIED 04-07-2015 [facility] DISORDER AMBULANCE OF EYE SERVICE 7820 DISTURBANCE 03-29-2015 [facility] SKIN [facility] SENSATION MEDICAL GROUP 08882 REGULAR 03-28-2015 [place] [facility] ASTIGMATISM SERV FOUNDATION 16692 INTERMITTEN 03-28-2015 [place] MED[facility] T SERV EXOTROPIA, FOUNDATION ALTERNATING 86890 OTHER 03-01-2015 [place] SPECIFIED MEDICAL DISORDERS IMAGING ASS OF BREAST 82735 UNSPECIFIED 03-01-2015 [facility] ABNORMAL [facility] MAMMOGRAM INC 19516 ATROPHIC 02-26-2015 [facility], GASTRITIS LLC WITHOUT MENTION OF HEMORRHAGE 81949 UNS 02-26-2015 [facility] GASTRITIS&G [facility] ASTRODUODIT INC IS W/O MENTION HEMORR 53355 NAUSEA 02-26-2015 [facility] ALONE [facility] INC 68245 ABDOMINAL 02-26-2015 [facility] PAIN, MEM HOS[facility] GENERALIZED INC V5869 LONG-TERM 02-26-2015 [facility] (CURRENT) MEM HOS[facility] USE OF INC OTHER MEDICATIONS 7804 DIZZINESS 11-29-2014 [facility] GIDDINESS MEDICAL GROUP 7840 HEADACHE 11-29-2014 [facility]ICAL GROUP 08353 OTHER 10-27-2014 [facility] DISEASES OF PHYSICIANS LARYNX GROUP 78287 DYSPHONIA 10-27-2014 [facility] PHYSICIANS GROUP 39674 DYSPHAGIA 10-27-2014 [facility] UNSPECIFIED PHYSICIANS GROUP V642 SURG/OTH 10-23-2014 [facility] PROC NOT [facility] OUT HOSPITAL P BECAUSE PTS DECN 08237 EARLY 10-17-2014 [facility] SATIETY PHYSICIANS GROUP 84489 DYSPHAGIA 10-17-2014 [facility] OROPHARYNGE PHYSICIANS AL PHASE GROUP 30168 ABDOMINAL 10-17-2014 [facility] PAIN, PHYSICIANS EPIGASTRIC GROUP 98959 INSOMNIA 09-27-2014 RELIG[facility] UNSPECIFIED NEUROLOGY CENTER [place] V700 ROUTINE 09-21-2014 [facility] MEDICAL INC EXAM@HEALTH CARE FACL V7612 OTHER 09-21-2014 [place] SCREENING MEDICAL MAMMOGRAM IMAGING ASS 83092 ABDOMINAL 09-18-2014 [place] PAIN, MEDICAL UNSPECIFIED IMAGING ASS SITE 3829 UNSPECIFIED 09-16-2014 [facility] SANTANA OTITIS MEDIA 4619 ACUTE 09-16-2014 FAY[facility] SANTANA SINUSITIS, UNSPECIFIED V0481 NEED 09-16-2014 F[facility] SANTANA PROPHYLACTI C VACCINATION &INOCULATIO N FLU 3502 ATYPICAL 09-06-2014 RELIGION FACE PAIN NEUROLOGY CENTER [place] 88057 MIGRAINE 08-24-2014 RELIGION W/O AURA NEUROLOGY INTRACT W/O CENTER [place] STATUS MIGRAINOSUS 2181 INTRAMURAL 08-23-2014 [place] LEIOMYOMA WAISTBAND SETTER OF UTERUS ASSOCIATES, 2189 LEIOMYOMA 08-15-2014 [place] OF UTERUS, MEDICAL UNSPECIFIED IMAGING ASS 6202 OTHER AND 08-15-2014 [facility] UNSPECIFIED MEM HOS[facility] OVARIAN INC CYST 6259 UNSPEC 08-15-2014 [place] SYMPTOM [facility] ASSOC IMAGING ASS W/FEMALE GENITAL ORGANS 7812 ABNORMALITY 08-09-2014 [facility] NEUROLOGY CENTER [place] V7231 ROUTINE 08-07-2014 CALL[facility] JERRYI GYNECOLOGIC AL EXAMINATION V762 SCREENING 08-07-2014 LABORATORY FOR DEVENDRA OF MALIGNANT MANISH H NEOPLASM OF THE CERVIX 77520 ESOPHAGEAL 07-31-2014 [facility] MEDICAL GROUP 7291 UNSPECIFIED 06-04-2014 EMP[facility] INC MYALGIA AND MYOSITIS 5950 ACUTE 05-03-2014 CALLUM JERRYI CYSTITIS 07911 OTHER 05-03-2014 AP[place] [address] OSTEOARTHRO 04-21-2014 FAYE Grossman INVLV MX [place]ITES [place] [address]33[address] BENIGN 04-17-2014 [facility] PAROXYSMAL RELIGION POSITIONAL HOSP VERTIGO V571 OTHER 04-17-2014 [facility] PHYSICAL RELIGION THERAPY HOSP 7210 CERVICAL 03-21-2014 VASCELLO SPONDYLOSIS GIANNI WITHOUT MYELOPATHY 7230 SPINAL 03-20-2014 [place] STENOSIS IN [place] CERVICAL REGION 47457 SPINAL STEN 03-20-2014 [place] LUMB REG [place] W/O NEUROGENIC CLAUDICATIO N 25048 SPINA 03-20-2014 [place] BIFIDA WITH [place] HYDROCEPHAL US CERVICAL REGION 08213 POSTLAMINEC 01-31-2014 MARII HAM JUSTINO SYNDROME CERVICAL REGION 7244 THORACIC/BARAHAM 01-31-2014 MARII HAM MBOSACRAL NEURITIS/RA DICULITIS UNSPEC 0549 HERPES 01-26-2014 CALLUM JERRYI SIMPLEX WITHOUT MENTION OF COMPLICATIO N 5533 DIAPHRAGMAT 01-19-2014 CALLUM JERRYI ALTAGRACIA W/O MENTION OBSTRUCTION /GANGREN 7821 RASH AND 01-19-2014 CALLUM WHI OTHER NONSPECIFIC SKIN ERUPTION 7850 UNSPECIFIED 01-18-2014 APPLE ANT TACHYCARDIA 43137 CHRONIC 01-13-2014 [facility] [place] EMERGENCY W/O AURA W/O INTRACTABLE W/O SM 7218 OTHER 01-10-2014 [facility] ALLIED JANET DISORDERS OF SPINE 7220 DISPLCMT 01-10-2014 [facility] CERV JANET INTERVERT DISC WITHOUT MYELOPATHY 92118 KYPHOSIS 01-10-2014 [facility] ACQUIRED JANET POSTURAL V454 ARTHRODESIS 01-10-2014 [facility] STATUS JANET V1641 FAMILY 01-05-2014 AL[facility] HISTORY OF JANET MALIGNANT NEOPLASM OVARY 7224 DEGENERATIO 12-29-2013 GO TRA N OF CERVICAL INTERVERTEB RAL DISC 2724 OTHER AND 12-28-2013 APPLE ANT UNSPECIFIED HYPERLIPIDE HERIBERTO 69356 ABDOMINAL 12-08-2013 CALLUM WHI PAIN, LEFT LOWER QUADRANT 4299 UNSPECIFIED 09-10-2013 [facility] RELIGION DISEASE HOSP 28702 ALTERED 09-06-2013 [facility] MENTAL RADIOLOGY STATUS ASSOC [...] #3 93 MG 8 TA BL ET MT 65 07 08 30 7 00 RI [...] AI ZA 75 17 17 44 D MT 0 99 PH IN AR E MA [...] CY TA BL #3 ET 93 8 MT 65 05 06 30 15 00 RI Ac OM 16 -1 -0 .0 00 TE ti ET 20 5- 9- 00 01 ve GERARDO 52 20 20 17 AI ZI 11 17 17 73 D NE 0 66 PH AR 25 MA CY MG #3 TA 93 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 00 TE ti ET 31 2- 0- 00 01 ve GERARDO 58 20 20 0 16 AI ZI 65 17 17 65 D NE 4 80 PH -D AR M MA SY CY RU P #3 93 8 MT 00 01 02 60 30 00 RI Ac OM 60 -1 -1 .0 00 TE ti ET 35 7- 0- 00 01 ve GERADRO 43 20 20 15 AI ZI 82 [...] CARDINAL SAGITTAL- 7 ORTHOTICS ORTHOTICS CORONAL , [facility] CONTRL RIGD ANT POST PANELS ANES 61602 [facility] 7 ANESTH MUSC & OF THE NRV HEAD BLUE NECK&POST ERIOR TRUNK INFUSION C1772 [facility] LAURENT PUMP 7 MEM HOSP MEM [facility]OS[facility] PROGRAMMA INC INC BLE IMPLTJ 33973 [facility] LAURENT REVJ/RPSG 7 MEM HOSP [facility]OS[facility] INC INC 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 IMPLTJ/RP 99884 EULESS SPOONAMOR LCMT 7 SURGICAL E ITHCL/EDR L DRUG NFS PRGRBL PUMP UNCLASSIF J3490 [facility] LAURENT IED DRUGS 7 MEM HOSP [facility]OS[facility] INC INC BASIC 34539 [facility] LAURENT METABOLIC 7 MEM HOSP MEM HOS[facility] PANEL INC INC CALCIUM TOTAL BLOOD 22418 [facility] LAURENT COUNT 7 MEM HOSP MEM HOSP COMPLETE INC INC AUTO&AUTO DIFRNTL WBC DETERMINA 98648 L[facility]IL[facility] PURCELL 7 REFRACTIV E STATE OPHTH 97295 LUDMILA [facility] 7 XM&EVAL COMPRHNSV ESTAB PT 1/> ARTHROCEN 50593 GRACE MALDONADOIS 7 ORTHOPEDI ASPIR&/IN C J MAJOR ASSOCIAT JT/BURSA W/O US COMPUTERI 49587 ALEX JOHNSON ZED 7 OPHTHALMI C IMAGING RETINA DUP-SCAN 49193 CNTRL [place] SCALF XTR VEINS 7 RADIOLOGY UNILATERA L/LIMITED STUDY URNLS DIP 75275 RELIGION CLEVE 7 HEALTH STICK/TAB MEDICAL LET RGNT GROUP NON-AUTO W/O MICRSCP RADEX HIP 59212 [facility] [place] 7 RADIOLOGY UNILATERA ASSOC L WITH PELVIS 2-3 [place] [address] CAORLE ZARCO TRANSVAGI 7 [place] [address] GRACE SANTIAGO ABDOMEN & 7 MEDICAL PELVIS IMAGING W/CONTRAS ASS T MATERIAL FINAL G9638 [facility] SANTIAGO REPORTS 7 MEDICAL W/O DOC IMAGING 1/MORE ASS DOSE REDUCTION TECH FINAL G9551 [facility] SANTIAGO REPR ABD 7 MEDICAL IMAG STS IMAGING W/O ASS [place] [address] [facility] LAURENT UREA 7 [facility] NITROGEN INC INC QUANTITAT [place] COLLECTIO 04088 [facility]HRAN LAURENT N VENOUS 7 [facility] BLOOD INC INC VENIPUNCT URE CREATININ 88532 MEHRAN LAURENT E BLOOD 7 [facility] INC INC ANES 84319 [facility] UPPER GI 7 ANESTH ENDOSCOPY OF THE PROXIMAL BLUE TO DUODENUM SLEEP STD 51834 MEHRAN LAURENT AIRFLOW 7 [facility] HRT INC INC RATE&[place]2 [place] [address] MEHRAN LAURENT INFUSION 7 [facility] THERAPY/P INC INC ROPHYLAXI S /DX 1ST TO 1 HR URNLS DIP 75887 [facility]ENT 7 [facility] STICK/TAB INC INC LET REAGENT AUTO MICROSCOP Y THERAPEUT 00954 MEHRAN LAURENT IC 7 [facility] INJECTION INC INC IV PUSH EACH NEW DRUG URINE 99652 MEHRAN LAURENT 7 [facility] TEST INC [place] [address] MEHRAN LAURENT HEAD/BRAI 7 [facility] N W/O INC INC CONTRAST MATERIAL FINAL [id number] [place] [facility] REPORTS 7 MEDICAL W/O DOC IMAGING 1/MORE [place] REDU[place] NJX 08486 PAVAN MUELLER DX/THER 7 MD ERVIN, SBST PSC INTRLMNR LMBR/SAC W/IMG GDN ROM 77772 MEHRAN LAURENT CHELSEY&REPR 7 [facility] T EA XTR INC INC EX HAND/EA TRNK SCTJ SPI GLUC BLD 65881 MEHRAN LAURENT GLUC MNTR 7 [facility] DEV INC INC CLEARED FDA SPEC HOME USE COMPREHEN 68606 [facility] SIVE 7 [facility] METABOLIC [facility] HOLDINGS PANEL C-REACTIV 30227 [facility] E PROTEIN 7 [facility] ANTINUCLE 92686 [facility] DEV[facility] AR 7 MANISH [facility]ISH [place] [address] LAB [facility] DEVEN[facility]A BLOOD/URI 7 MANISH MANISH C ACID HOLDINGS HOLDINGS BLOOD 65168 LAB [facility] LAB DEVENDRA COUNT 7 MANISH MANISH COMPLETE HOLDINGS HOLDINGS AUTO&AUTO DIFRNTL WBC RHEUMATOI 37386 [facility] D FACTOR 7 MANISH MANISH QUANTITAT HOLDINGS HOLDINGS [place] CHEMODERV 73626 [facility] SHOJAEI-M ATE 7 PHYSICIAN OGHADDAM FACIAL/TR S GROUP IGEM/CERV MUSC MIGRAINE BOTULINUM J0585 [facility] MYRIAM-Mt TOXIN 7 PHYSICIAN OGHACATRACHITAAM TYPE A S GROUP PER UNIT COLLECTIO 68266 MEHRAN MEHRAN N VENOUS 6 [facility] BLOOD INC INC VENIPUNCT URE IMMUNOASS 45435 MEHRAN HEON AY TUMOR 6 [facility] ANTIGEN INC INC QUANTITAT [place] INJECTION 14836 PAVAN MUELLER MD, SINGLE/ML PSC T TRIGGER POINT 1/2 [place] [address] MEHRAN HEON TRANSVAGI 6 [facility] NAL INC INC CYTP C/V 05277 [facility] LAB[facility], PICKLESIM AUTO THIN 6 LLC ER JR YEE LYR PREPJ SCR MNL RESCR PHYS LIPID 41864 LAB DEVENDRA LAB DEVENDRA PANEL 6 [facility] HOLDINGS HOLDINGS COMPREHEN 91724 LAB DEVENDRA LAB DEVENDRA SIVE 6 [facility] METABOLIC [place] [address] LAB DEVENDRA LAB DEVENDRA THYROID 6 [facility] STIMULATI HOLDINGS [place] [address] LAB DEVENDRA LAB DEVENDRA THYROXINE 6 [facility] TOTAL HOLDINGS HOLDINGS IADNA 64858 [facility], PICKLESIM HUMAN 6 LLC ER JR YEE [place] VIRUS HIGH-RISK TYPES COLLECTIO 94811 MEHRAN LAURENT N VENOUS 6 [facility] [place]LO[place] [address] MEHRAN LAURENT FREE 6 [facility] [place] [address] MEHRAN LAURENT THYROID 6 [facility] STIMULATI [place] [address] MEHRAN LAURENT TRIIODOTH 6 [facility] YRONINE INC INC T3 FREE BLOOD 92675 MEHRAN LAURENT COUNT 6 [facility] COMPLETE INC INC AUTO&AUTO DIFRNTL WBC IM ADM 36227 MEHRAN LAURENT PRQ ID 6 [facility] SUBQ/IM INC INC NJXS 1 VACCINE SIMPLE 95400 MEHRAN LAURENT REPAIR 6 [facility] SCALP/NEC INC INC K/AX/BLUE T/TRUNK 2.5CM/< ANESTHESI 08403 [facility] A LUMBAR 6 ANESTHESI JAVI REGION A GROUP NOS PS LAMNOTMY 65594 [facility] GO INCL 6 W/DCMPRSN ORTHOPAED NRV ROOT ICS PSC 1 INTRSPC LUMBR BOTULINUM J0585 [facility] MYRIAM-Mt TOXIN 6 PHYSICIAN OGHADDAM TYPE A S GROUP PER UNIT CHEMODERV 34412 [facility] MYRIAM-M ATE 6 PHYSICIAN OGHADDAM FACIAL/TR S GROUP IGEM/CERV [facility] MIGRAINE COMPREHEN 59534 LAB DEVENDRA LAB DEVENDRA SIVE 6 [facility] METABOLIC HOLDINGS HOLDINGS PANEL BLOOD 17039 LAB DEVENDRA LAB DEVENDRA COUNT 6 [facility] COMPLETE HOLDINGS HOLDINGS AUTO&AUTO DIFRNTL WBC ECG 99435 MEHRAN TORRES JR ROUTINE 6 [facility] W/LEAST P 12 LDS I&R ONLY BLOOD 77177 MEHRAN LAURENT COUNT 6 [facility] COMPLETE INC INC AUTO&AUTO DIFRNTL WBC RADIOLOGI 70555 [facility] C EXAM 6 MEDICAL CHEST 2 IMAGING VIEWS ASS FRONTAL&L ATERAL COLLECTIO 02035 MEHRAN LAURENT N VENOUS 6 [facility] BLOOD INC INC VENIPUNCT URE BASIC 95978 MEHRAN LAURENT METABOLIC 6 [facility] PANEL INC INC CALCIUM TOTAL DRUG TST G0477 MEHRAN LAURENT PRESUMP;C 6 [facility] PBL BEING INC INC READ DC OPT OBV ONLY ECG 34748 MEHRAN LAURENT ROUTINE 6 [facility] ECG INC INC W/LEAST 12 LDS TRCG ONLY W/O I&R INJECTION 36778 PAVANJAY JAY VILLEGASX ANJ 6 MD ERVIN, SINGLE/ML PSC T TRIGGER POINT 1/2 [place] MRI 77946 [facility] TRA SPINAL 6 CANAL ORTHOPAED LUMBAR ICS PSC W/O CONTRAST MATERIAL INJ PROC G0260 MEHRAN LAURENT SI 6 [facility] JNT;ANES INC INC STEROID&/ [place] [address] PAVAN DUFF CHARMAINE JOINT 6 MD ERVIN, ARTHRGRPH PSC Y&/ANES/S TEROID W/[place] RADEX HIP 14987 [facility] GO 6 [place] ORTHOPAED L WITH ICS PSC PELVIS 1 VIEW DRUG TST G0477 MEHRAN LAURENT PRESUMP;C 6 [facility] PBL BEING INC INC READ DC OPT OBV ONLY THERAPEUT 32332 MEHRAN DE LA O IC 6 [facility] TIC/DX INJECTION SUBQ/IM INJECTION J1885 MEHRAN DE LA O 6 [facility] TROMETHAM INE PER 15 MG INJECTION J1040 MEHRAN DE LA O [address] [facility] DNISOLONE ACETATE 80 MG SENSORMOT [address] [place] OR XM 6 MEDICAL MEDICAL W/EMPLOYEE HEALTH NURSE SERV SERV CHELSEY FOUNDATIO FOUNDATIO OCULAR N N DEVIJ W/I&R SPX COMPUTERI 22107 CAROLE ESCAMILLA ZED 6 MEDICAL PAD OPHTHALMI SERV C IMAGING FOUNDATIO RETINA N CHEMODERV 18113 RELIGION TOÑITO ATE 6 [facility] FACIAL/TR MEDICAL IGEM/CERV GROUP [facility] MIGRAINE BOTULINUM J0585 RELIGION TOÑITO TOXIN 6 [facility] TYPE A MEDICAL PER UNIT GROUP COMPUTER- 67623 [place] [facility] AIDED 6 MEDICAL JANET DETECTION IMAGING ASS SCREENING MAMMOGRAP HY DXA BONE 70208 [place] [facility] DENSITY 6 MEDICAL JANET STUDY 1/> IMAGING SITES ASS AXIAL SKEL SCREENING G0202 [place] AL[facility]CE 6 MEDICAL JANET MAMMOGRAP IMAGING HY JOSELIN ASS INCL CAD WHEN PERFORMD [facility] G[address] T CLIN & ST & ST VISIT [facility] ASSESS & MGMT PT INJECTION J1885 MEHRAN DE LA O [address] [place] [address] TROMETHAM INE PER 15 MG THERAPEUT 40732 MEHRAN DE LA O IC 6 [facility] TIC/DX INJECTION SUBQ/IM INJECTION J1040 MEHRAN DE LA O [address] [place] [address] DNISOLONE ACETATE 80 MG INJECTION J1885 [facility] TROMETHAM INE PER 15 MG THERAPEUT 95382 RELIGION MORRIN IC 6 HEALTH PROPHYLAC MEDICAL TIC/DX GROUP INJECTION SUBQ/IM COMPREHEN 41412 LAB DEVENDRA LAB DEVENDRA SIVE 6 [facility]OL[facility] [place] [address] LAB DEVENDRA LAB DEVENDRA IRON 6 [facility] [place] [address] LAB DEVENDRA LAB DEVENDRA FOLIC 6 [facility] [place] [address] LAB DEVENDRA LAB DEVENDRA THYROID 6 [facility] STIMULATI HOLDINGS HOLDINGS NG HORMONE TSH BLOOD 77604 LAB DEVENDRA LAB DEVENDRA COUNT 6 [facility] COMPLETE HOLDINGS HOLDINGS AUTO&AUTO DIFRNTL WBC IRON 32802 LAB DEVENDRA LAB DEVENDRA BINDING 6 [facility] CAPACITY HOLDINGS HOLDINGS CYANOCOBA 09077 LAB DEVENDRA LAB DEVENDRA DAVID 6 [facility] VITAMIN HOLDINGS HOLDINGS B-12 25 53512 LAB DEVENDRA LAB DEVENDRA HYDROXY 6 [facility] INCLUDES HOLDINGS HOLDINGS FRACTIONS IF PERFORMED MICROSOMA 39851 LAB DEVENDRA LAB DEVENDRA L 6 [facility] ANTIBODIE [place] [address] LAB DEVENDRA LAB DEVENDRA THYROXINE 6 [facility] [place] [address] LAB DEVENDRA LAB DEVENDRA TRIIODOTH 6 [facility] YRONINE HOLDINGS HOLDINGS T3 TOTAL TT3 LOCM Q9967 MEHRAN HEON 300-399 6 [facility] MG/ML INC INC IODINE [place]X [address]149 PAVAN DURON CRI DX/THER 6 MD ERVIN, SBST PSC EPIDURAL/ SUBARACH LUMBAR/SA CRAL INJECTION J1030 MEHRANZOYA HEON 6 [facility] METHYLPRE INC INC DNISOLONE ACETATE 40 MG HOSPITAL G0463 MEHRAN LAURENT OUTPATIEN 6 [facility] T CLIN INC INC VISIT ASSESS & MGMT PT THERAPEUT 94860 RELIGIONDanay RODRIGUES IC 6 [facility] PROPHYLAC MEDICAL TIC/DX GROUP INJECTION SUBQ/IM INJECTION J3301 RELIGION LILIA 6 [facility]ALTH [facility] TRIAMCINO MEDICAL LONE GROUP [place] [address] [place] [address] [place] [facility] CERVICAL 6 MEDICAL JANET SPINE W/[place] [address] [place] [facility] HEAD/BRAI 6 MEDICAL JANET N W/O IMAGING CONTRAST ASS MATERIAL RADEX HIP 43601 [place] BEINEKE 6 MEDICAL UNILATERA IMAGING L WITH ASS PELVIS 2-3 VIEWS CHEMODERV 64651 RELIGION TOÑITO ALBARADO 6 [facility] FACIAL/TR MEDICAL IGEM/CERV GROUP [facility] MIGRAINE BOTULINUM J0585 RELIGION TOÑITO TOXIN 6 [facility] TYPE A MEDICAL PER UNIT GROUP OPHTH 65601 [facility] 6 GRE GRE XM&EVAL COMPRE NEW PT 1/> VST COMPREHEN 67994 LAB DEVENDRA LAB DEVENDRA SIVE 6 [facility] [place] [address] LAB DEVENDRA LAB DEVENDRA THYROID 6 [facility] STIMULATI HOLDINGS HOLDINGS NG HORMONE TSH BLOOD 99134 LAB DEVENDRA LAB DEVENDRA COUNT 6 [facility] COMPLETE HOLDINGS HOLDINGS AUTO&AUTO DIFRNTL WBC LIPID 29216 LAB DEVENDRA LAB DEVENDRA PANEL 6 [facility] HOLDINGS PRESSURIZ 39094 MEHRAN LAURENT ED/NONPRE 6 [facility] SSURIZED INC INC INHALATIO N TREATMENT INJECTION J1040 MEHRAN SHARMA 5 [facility] DNISOLONE ACETATE 80 MG INJECTION J0696 MEHRAN SHARMA 5 [facility] SODIUM PER 250 MG THERAPEUT 81647 MEHRAN SHARMA IC 5 [facility] TIC/DX INJECTION SUBQ/IM CHEMODERV 37731 RELIGION TOÑITO ATE 5 [facility] FACIAL/TR MEDICAL IGEM/CERV GROUP [facility] MIGRAINE BOTULINUM J0585 RELIGION TOÑITO TOXIN 5 [facility] TYPE A MEDICAL PER UNIT GROUP NONINVASI 36708 MEHRAN LAURENT VE 5 [facility] EAR/PULSE INC INC OXIMETRY SINGLE DETER INITIAL 75695 [facility] 5 CULAR MAT CARE/DAY CONSULTAN 50 [place] [address] MEHRAN LAURENT TROPONIN 5 [facility] QUANTITAT INC INC [place] BLOOD 92083 MEHRAN LAURENT COUNT 5 [facility] COMPLETE INC INC AUTO&AUTO DIFRNTL WBC OBSERVATI 82734 [facility] 5 PHYSICIAN FEDE DISCHARGE S GROUP MANAGEMEN T CREATINE 21127 MEHRAN LAURENT KINASE 5 [facility] TOTAL INC INC HOSPITAL G0378 MEHRAN LAURENT OBSERVATI 5 [facility] ON INC INC SERVICE PER HOUR COLLECTIO 03821 MEHRAN LAURENT N VENOUS 5 [facility] BLOOD INC INC VENIPUNCT URE COMPREHEN 90257 MEHRAN LAURENT SIVE 5 [facility] METABOLIC INC INC PANEL CREATINE 88915 MEHRAN LAURENT KINASE MB 5 [facility] FRACTION INC INC ONLY ECHO 35474 CAROLE MEYER TTC R-T 5 MEDICAL GABRIEL 2D SERV W/WOM-MOD FOUNDATIO E COMPL N SPEC&[place] [address] MEHRAN LAURENT ANGIOGRAP 5 [facility] HY CHEST INC INC W/CONTRAS T/[facility] G0378 MEHRAN LAURENT OBSERVATI 5 [facility] ON INC INC SERVICE PER HOUR COMPREHEN 22447 MEHRAN LAURENT SIVE 5 [facility] METABOLIC INC INC PANEL CREATINE 08475 MEHRAN LAURENT KINASE MB 5 [facility] FRACTION INC INC ONLY LOCM Q9967 MEHRAN LAURENT 300-399 5 [facility] MG/ML INC INC IODINE CONCENTRA TION PER ML COLLECTIO 67635 MEHRAN LAURENT N VENOUS 5 [facility] BLOOD INC INC VENIPUNCT URE FIBRIN 68816 MEHRAN LAURENT DGRADJ 5 [facility] PRODUCTS INC INC D-DIMER QUAL/SEMI TACO THER 25700 MEHRAN LAURENT PROPH/DX 5 [facility] NJX IV INC INC PUSH SINGLE/1S T SBST/DRUG ECG 29918 MEHRAN LAURENT ROUTINE 5 [facility] ECG INC INC W/LEAST 12 LDS TRCG ONLY W/O I&R CREATINE 43368 MEHRAN LAURENT KINASE 5 [facility] TOTAL INC INC THERAPEUT 60808 MEHRAN LAURENT IC 5 [facility] INJECTION INC INC IV PUSH EACH NEW DRUG NONINVASI 70857 MEHRAN LAURENT VE 5 [facility] EAR/PULSE INC INC OXIMETRY SINGLE DETER HEMOGLOBI 55789 MEHRAN LAURENT N 5 [facility] GLYCOSYLA INC INC KARLA A1C BLOOD 72841 MEHRAN HEON COUNT 5 [facility] COMPLETE INC INC AUTO&AUTO DIFRNTL WBC ECG 13746 MEHRAN TORRES JR ROUTINE 5 [facility] W/LEAST P 12 LDS I&R ONLY URNLS DIP 91904 MEHRAN LAURENT 5 [facility] STICK/TAB INC INC [place] [address] MEHRAN MEHRAN TROPONIN 5 [facility] QUANTITAT INC INC [place] INITIAL 07263 [facility] JAROD OBSERVATI 5 PHYSICIAN FEDE ON S GROUP CARE/DAY 50 MINUTES URINE 68751 MEHRAN LAURENT 5 [facility] TEST INC INC VISUAL COLOR CMPRSN METHS RADIOLOGI 10015 MEHRAN LAURENT C 5 [facility] EXAMINATI INC INC ON CHEST SINGLE VIEW FRONTAL IM ADM 12948 JUDD PARKS JOCELIN PRQ ID 5 HEALTH SUBQ/IM MEDICAL NJXS 1 GROUP VACCINE IIV3 VACC 16160 JUDD PARKS JOCELIN 5 HEALTH PRESERVAT MEDICAL [place] FREE GROUP 0.5 ML DOSAGE IM USE THERAPEUT 02014 MEHRAN MARTIN IC 5 [facility] TIC/DX INJECTION SUBQ/IM INJECTION J[address] 5 [facility] DNISOLONE ACETATE 40 MG RADEX 51622 MEHRAN LAURENT SPINE 5 [facility] LUMBOSACR INC INC AL MINIMUM 4 VIEWS CHEMODERV 18410 RELIGION TOÑITO ATE 5 [facility] FACIAL/TR MEDICAL IGEM/CERV GROUP [facility] MIGRAINE BOTULINUM J0585 RELIGION TOÑITO TOXIN 5 [facility] TYPE A MEDICAL PER UNIT GROUP INJECTION J1885 JUDD RODRIGUES 5 [facility] TROMETHAM INE PER 15 MG CULTURE 16071 LAB DEVENDRA LAB DEVENDRA BACTERIAL 5 [facility] QUANTTATI VE COLONY COUNT URINE INJECTION J3301 JUDD RODRIGUES 5 [facility]ALTH [facility] TRIAMCINO MEDICAL LONE GROUP ACETONIDE NOS 10 MG SUSCEPTIB 76241 LAB DEVENDRA LAB DEVENDRA LTY STDY 5 [facility] ANTIMICRB HOLDINGS HOLDINGS IAL MICRO/AGA R DILUTJ CULTURE 94401 LAB DEVENDRA LAB DEVENDRA BACTERIAL 5 [facility] HOLDINGS HOLDINGS QUANTTATI VE COLONY COUNT URINE CULTURE 68973 LAB DEVENDRA LAB DEVENDRA BCT 5 [facility] ISOL[facility] HOLDINGS HOLDINGS PTV ID ISOLATE EA URINE CUL BACT 62264 LAB DEVENDRA LAB DEVENDRA AEROBIC 5 [facility] ADDL HOLDINGS HOLDINGS METHS DEFINITIV E EA ISOL INJECTION J1885 JUDD PARKS JOCELIN 5 [facility] KETOROLAC MEDICAL GROUP TROMETHAM INE PER 15 MG MRI 91680 [place] [facility] SPINAL 5 MEDICAL JANET CANAL IMAGING LUMBAR ASS W/O CONTRAST MATERIAL 3D 79578 [place] [facility] RENDERING 5 MEDICAL JANET W/INTERP IMAGING & ASS POSTPROCE SS SUPERVISI ON OPHTH 29254 [facility] 5 MEDICAL CLA XM&EVAL SERV INTERMEDI FOUNDATIO ATE ESTAB N PT BASIC 44303 [facility] METABOLIC 5 Y Y PANEL [facility] CALCIUM TOTAL THROMBOPL 92211 [facility] ASTIN 5 Y Y TIME [facility] PARTIAL PLASMA/WH OLE BLOOD RADIOLOGI 84983 [facility] 5 [facility] S[facility]LE [facility]IEW FRONTAL THER 53876 [facility] PROPH/DX 5 Y Y NJX [facility] PUSH SINGLE/1S T SBST/DRUG PROTHROMB 80985 [facility] IN TIME 5 Y Y [facility] GROUND A0425 [facility] MILEAGE 5 AMBULANCE AMBULANCE PER SERV 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 [address] [facility] TROPONIN 5 RELIGION RELIGION QUANTITAT HOSP HOSP [place] ECG 55149 [facility] SUSAN ROUTINE 5 MEDICAL ECG SERV W/LEAST FOUNDATIO 12 LDS N I&R ONLY BLOOD 76271 [facility] 5 Y Y COMPLETE [facility] AUTOMATED ECG 16940 [facility] ROUTINE 5 RELIGION RELIGION ECG HOSP HOSP W/LEAST 12 LDS TRCG ONLY W/O I&R INJECTION J2550 [facility] 5 Y Y [facility] INE HCL UP TO 50 MG COLLECTIO 76974 [facility] N VENOUS 5 RELIGION RELIGION BLOOD HOSP HOSP VENIPUNCT URE COMPREHEN 57611 [facility] SIVE 5 RELIGION RELIGION [place] [address] [facility] AMYLASE 5 RELIGION RELIGION HOSP HOSP NONINVASI 05670 [facility] VE 5 RELIGION RELIGION EAR/PULSE HOSP HOSP OXIMETRY MULTIPLE DETER INJECTION J2550 [facility] 5 RELIGION RELIGION PROMETHAZ HOSP HOSP INE HCL UP TO 50 [place] [address] [facility] LIPASE 5 RELIGION RELIGION HOSP HOSP FIBRIN 84063 [facility] DGRADJ 5 RELIGION RELIGION PRODUCTS HOSP HOSP D-DIMER QUANTITAT [place] PROTHROMB 96353 [facility] IN TIME 5 RELIGION RELIGION HOSP HOSP ECG 68556 [facility] ROUTINE 5 RELIGION RELIGION ECG HOSP HOSP W/LEAST 12 LDS TRCG ONLY W/[place] I&[place] [address] [facility] INFUSION 5 RELIGION RELIGION THERAPY/P HOSP HOSP ROPHYLAXI S /DX 1ST TO 1 HR THERAPEUT 89544 [facility] IC 5 RELIGION RELIGION INJECTION HOSP HOSP IV PUSH EACH NEW DRUG NATRIURET 96661 [facility] IC 5 RELIGION REL[place] [address] [facility] TROPONIN 5 RELIGION RELIGION QUANTITAT HOSP HOSP [place] BLOOD 66280 [facility] COUNT 5 RELIGION RELIGION COMPLETE HOSP HOSP AUTO&AUTO DIFRNTL WBC GROUND A0425 [facility] MILEAGE 5 AMBULANCE AMBULANCE PER SERVICE SERVICE STATUTE MILE INJECTION J2270 [facility] MORPHINE 5 RELIGION RELIGION SULFATE HOSP HOSP UP TO 10 [place] [address] [facility] THERAPY 5 RELIGION RELIGION PROPHYLAX HOSP HOSP IS/DX CONCURREN T NFS CRITICAL 13627 [facility]ENCE [facility] CARE 5 EMERGENCY ILL/INJUR PHYS PSC ED PATIENT INIT 30-74 [place] [address] [facility] INFUSION 5 RELIGION RELIGION THERAPY HOSP HOSP PROPHYLAX IS/DX EA HOUR THER 81149 [facility] PROPH/DX 5 RELIGION RELIGION NJX EA HOSP HOSP SEQL IV PUSH SBST/DRUG FAC THROMBOPL 54922 [facility] ASTIN 5 RELIGION RELIGION TIME HOSP HOSP PARTIAL PLASMA/WH OLE BLOOD AMB A0427 [facility] SERVICE 5 AMBULANCE AMBULANCE ALS SERVICE SERVICE EMERGENCY TRANSPORT LEVEL 1 RADIOLOGI 37416 [facility] BRIGHT C 5 RADIOLOGY III JAM EXAMINATI ASSOC ON CHEST SINGLE VIEW FRONTAL INJECTION J1885 JUDD PARKS JOCELIN 5 HEALTH [facility]ET[facility]OL[facility] MEDICAL GROUP TROMETHAM INE PER 15 MG THERAPEUT 62088 JUDD PARKS JOCELIN IC 5 HEALTH PROPHYLAC MEDICAL TIC/DX GROUP INJECTION SUBQ/IM OPHTH 11847 CAROLE RODRIGUEZ MEDICAL 5 MEDICAL MEGAN XM&EVAL SERV COMPRHNSV FOUNDATIO ESTAB PT N 1/> DETERMINA 52762 CAROLE MICHAEL TION 5 MEDICAL MEGAN REFRACTIV SERV E STATE FOUNDATIO N CHEMODERV 15083 RELIGION TOÑITO ATE 5 [facility] FACIAL/TR MEDICAL IGEM/CERV GROUP [facility] MIGRAINE DIAGNOSTI G0206 [place] AL[facility] C 5 MEDICAL JANET MAMMOGRAP IMAGING HY INCL [place] [address] [facility] LAB[facility], PICKLESIM SURG 5 [facility] ER [facility] PATHOLOGY GROSS&[place] [address] MEHRAN MEHRAN INFUSION 5 [facility] THERAPY INC [place] PROP[place] [address] MEHRAN MEHRAN INFUSION 5 [facility] THERAPY/P INC INC ROPHYLAXI S /DX 1ST TO 1 [place] [address] [place] [facility] ANT TRANSORAL 5 MEDICAL BIOPSY SERV SINGLE/MU FOUNDATIO LTIPLE N CUL 06322 MEHRAN LAURENT PRSMPTV 5 [facility] PTHGNC INC INC ORGANISMS SCR DNS CHART SPECIAL 47817 [facility], PICKLESIM STAIN 5 LLC ER JR YEE GROUP 1 MICROORGA NISMS I&R 25 27397 MEHRAN LAURENT HYDROXY 5 [facility] INCLUDES INC INC FRACTIONS IF PERFORMED BLOOD 79193 MEHRAN LAURENT COUNT 5 [facility] COMPLETE INC INC AUTO&AUTO DIFRNTL WBC COLLECTIO 90538 MEHRAN LAURENT N VENOUS 5 [facility] BLOOD INC INC VENIPUNCT URE COMPREHEN 54116 MEHRAN LAURENT SIVE 5 [facility] [place] [address] MEHRAN LAURENT THYROID 5 [facility] STIMULATI INC INC NG HORMONE TSH CHEMODERV 93492 RELIGION TOÑITO ATE 5 [facility] FACIAL/TR MEDICAL IGEM/CERV GROUP [facility] MIGRAINE COMPREHEN 10571 MEHRAN LAURENT SIVE 4 [facility] METABOLIC INC INC PANEL CREATINE 04710 MEHRAN LAURENT KINASE MB 4 [facility] FRACTION INC INC ONLY ECG 84656 MEHRAN DENT ROUTINE 4 [facility] W/LEAST P 12 LDS [place] [address] MEHRAN LAURENT TROPONIN 4 [facility] QUANTITAT INC INC [place] URNLS DIP 06090 MEHRAN LAURENT 4 [facility] STICK/TAB INC INC LET REAGENT AUTO MICROSCOP Y BLOOD 81984 MEHRAN LAURENT COUNT 4 [facility] COMPLETE INC INC AUTO&AUTO DIFRNTL WBC RADIOLOGI 15655 MEHRAN LAURENT C 4 [facility] EXAMINATI INC INC ON CHEST SINGLE VIEW FRONTAL CREATINE 77005 MEHRAN LAURENT KINASE 4 [facility] TOTAL INC INC ECG 56289 MEHRAN LAURENT ROUTINE 4 [facility] ECG INC INC W/LEAST 12 LDS TRCG ONLY W/O I&R DIAGNOSTI G0206 MEHRAN LAURENT C 4 [facility] MAMMOGRAP INC INC HY INCL CAD WHEN PERF; UNI US BREAST 97140 MEHRAN LAURENT REAL 4 [facility] TIME INC INC W/IMAGE DOCUMENTA TION SWALLOWIN 43531 AMARILIS Veloz FUNCJ 4 RADIOLOGY W/CINERAD ASSOC IOGRAPY/V IDRADIOG SCREENING G0202 MEHRAN LAURENT 4 [facility] MAMMOGRAP INC INC HY JOSELIN INCL CAD WHEN PERFORMD COMPUTER- 72070 MEHRAN LAURENT AIDED 4 [facility] DETECTION INC INC SCREENING MAMMOGRAP HY TECHNETIU A9541 MEHRAN Amor TC-99M 4 [facility] SULFUR INC INC COLLOID DX UP TO 20 MCI GASTRIC 38306 MEHRAN LAURENT EMPTYING 4 [facility] IM[facility] INC STUDY LARYNGOSC 83157 [facility] VJ OPY 4 PHYSICIAN FRA FLEXIBLE S GROUP DIAGNOSTI C INJECTION J1030 RELIGION TOÑITO 4 NEUROLOGY [facility] METHYLPRE [facility] DNISOLONE [place] ACETATE 40 MG INJECTION 78009 RELIGION TOÑITO 4 [facility]UROLOGY [facility] ANESTHETI [facility] C AGENT [place] [facility] NRV INJECTION 30368 RELIGION TOÑITO 4 NEUROLOGY [facility] SINGLE/ML CENTER T TRIGGER [place] POINT 3/> MUSCLES SPECIAL 74969 [facility] STAIN 4 [facility] 1 [place]CRO[place]IS[place] [address] MEHRAN LAURENT HPYLORI 4 [facility] [place] [address] [facility] SURG 4 [facility] PATHOLOGY GROSS&FEDE ROSCOPIC EXAM EGD 23569 [facility] SUJATHA SHAH TRANSORAL 4 PHYSICIAN MILY BIOPSY S GROUP SINGLE/MU LTIPLE ARTHROCEN 38693 RELIGION TOÑITO TESIS 4 NEUROLOGY [facility] ASPIR&/IN CENTER J MAJOR [place] JT/BURSA W/O US INJECTION J1100 RELIGION TOÑITO 4 NEUROLOGY [facility] DEXAMETHO CENTER SONE [place] SODIUM PHOSPH[place] 1 [place] [address] MEHRAN LAURENT TRANSVAGI 4 [facility] NAL INC INC 25 89043 LABORATOR LABORATOR HYDROXY 4 Y Y INCLUDES CORPORATI CORPORATI FRACTIONS ON [place] [address] LABORATOR LABORATOR FERRITIN 4 Y Y CORPORATI [place] [address] LABORATOR LABORATOR IRON 4 Y Y CORPORATI CORPORATI ON OF AM ON OF AM CYTP 27627 LABORATOR LABORATOR CERV/VAG 4 Y DEVENDRA OF Y DEVENDRA OF AUTO THIN [facility] LAYER H H PREP MNL SCREEN GENERAL 87748 LABORATOR LABORATOR HEALTH 4 Y Y PANEL CORPORATI CORPORATI ON OF AM ON OF AM LIPID 46681 LABORATOR LABORATOR PANEL 4 Y Y CORPORATI CORPORATI ON OF AM ON OF AM THERAPEUT 35178 RELIGION CALLUM IC 4 [facility] PROPHYLAC MEDICAL TIC/DX GROUP INJECTION SUBQ/IM INJECTION J3301 RELIGION CALLUM 4 [facility] TRIAMCINO MEDICAL LONE GROUP ACETONIDE NOS 10 MG TENS E0720 EMPI INC EMPI INC DEVICE 4 TWO LEAD LOCALIZED STIMULATI ON TENS E0730 EMPI INC EMPI INC DEVICE 4 4/MORE LEADS MULTI NERVE STIMULATI ON CULTURE 91985 LAB [facility] LAB [facility] BACTERIAL 4 [facility] HOLDINGS QUANTTATI VE COLONY COUNT URINE HEMOGLOBI 49671 LAB [facility] LAB DEVENDRA N 4 [facility] GLYCOSYLA [place] [address] LAB [facility] LAB DEVENDRA TRIIODOTH 4 [facility] YRONINE HOLDINGS HOLDINGS T3 FREE INJECTION J3301 CALLUM CALLUM 4 [facility] TRIAMCINO LONE ACETONIDE NOS 10 MG 25 53160 LAB [facility] LAB DEVENDRA HYDROXY 4 [facility] MANISH INCLUDES HOLDINGS HOLDINGS FRACTIONS IF PERFORMED CYANOCOBA 83349 LAB [facility] LAB DEVENDRA DAVID 4 [facility] VITAMIN HOLDINGS HOLDINGS B-12 THERAPEUT 49196 CALLUM CALLUM IC 4 [facility] PROPHYLAC TIC/DX INJECTION SUBQ/[place] [address] LAB DEV[facility]DR[facility] LAB DEVENDR[facility] THYROID 4 [facility] STIMULATI HOLDINGS [place] [address] LAB [facility] LAB DEVENDRA FREE 4 [facility] [place] [address] LAB DEV[facility]DR[facility] LAB DEVENDRA IRON 4 [facility] HOLDINGS HOLDINGS INJ J0702 FAYE MCKINNEY BETAMETHA 4 MAX MAX SONE ACETATE & PHOSPHATE 3 MG PHYSICAL 30687 [facility] 4 RELIGION RELIGION [facility] HOSP N TENS E0730 EMPI INC EMPI INC DEVICE 4 4/MORE LEADS MULTI NERVE STIMULATI ON MANUAL 73448 CROSSFIEL CROSSFIEL THERAPY 4 D KOLBY D KOLBY TQS 1/> REGIONS EACH 15 MINUTES THERAPEUT 51001 CROSSFIEL CROSSFIEL IC PX 1/> 4 D KOLBY D KOLBY AREAS EACH 15 MIN EXERCISES THERAPEUT 95945 CROSSFIEL CROSSFIEL IC PX 1/> 4 D KOLBY D KOLBY AREAS EACH 15 MIN EXERCISES MANUAL 67742 CROSSFIEL CROSSFIEL THERAPY 4 D KOLBY D KOLBY TQS 1/> REGIONS EACH 15 MINUTES MANUAL 77023 CROSSFIEL CROSSFIEL THERAPY 4 D KOLBY D KOLBY TQS 1/> REGIONS EACH 15 MINUTES THERAPEUT 00962 CROSSFIEL CROSSFIEL IC PX 1/> 4 D KOLBY D KOLBY AREAS EACH 15 MIN EXERCISES MANUAL 60147 CROSSFIEL CROSSFIEL THERAPY 4 D KOLBY D KOLBY TQS 1/> REGIONS EACH 15 MINUTES MANUAL 83082 CROSSFIEL CROSSFIEL THERAPY 4 D KOLBY D KOLBY TQS 1/> REGIONS EACH 15 MINUTES MANUAL 32612 CROSSFIEL CROSSFIEL THERAPY 4 D KOLBY D KOLBY TQS 1/> REGIONS EACH 15 MINUTES MANUAL 18783 CROSSFIEL CROSSFIEL THERAPY 4 D KOLBY D KOLBY TQS 1/> REGIONS EACH 15 MINUTES PHYSICAL 47728 PROFESSIO CROSSFIEL THERAPY 4 NAL REHAB D KOLBY EVALUATIO ASSOC N PSC DRUG SCR G0434 MARII HAM MARII HAM NOT 4 CHROMATOG RAPHIC; ANY NUMBER PT ENC MRI 44683 [facility] LAURENT SPINAL 4 [facility] CANAL INC INC LUMBAR W/O CONTRAST MATERIAL MRI 05131 MEHR[facility] LAURENT SPINAL 4 [facility] CANAL INC INC CERVICAL W/O CONTRAST MATRL 3D 03256 ME[facility] LAURENT RENDERING 4 [facility] W/INTERP INC INC & POSTPROCE SS SUPERVISI ON METANEPHR 86961 MEHRAN LAURENT PHIL 4 [place] [address] MEHRAN LAURENT HYDROXYIN 4 [facility] DOLACETIC [place] ACID 5-[place] [address] MEHRAN LAURENT VANILLYLM 4 [facility] [place] [address] MEHRAN LAURENT ALDOSTERO 4 [place] [address] MEHRAN LAURENT TRANSVAGI 4 [facility] NAL INC INC INJ J0702 FAYE MCKINNEY BETAMETHA 4 MAX MAX SONE ACETATE & PHOSPHATE 3 MG THERAPEUT 96397 CALLUM NOLEN IC 4 WHI WHI PROPHYLAC TIC/DX INJECTION SUBQ/IM INJECTION J3301 CALLUM CALLUM 4 WHI WHI TRIAMCINO LONE ACETONIDE NOS 10 MG COLLECTIO 55762 [facility] N VENOUS 3 [facility]ION [facility] BLOOD [facility]OSP HOSP VENIPUNCT URE COMPREHEN 92696 [facility] SIVE 3 RELIGION [facility] [place] [address] [facility] AM[facility] 3 [place] [place] [address] [facility] LIPASE 3 RELIGION RELIGION HOSP HOSP PROTHROMB 97023 [facility] IN TIME 3 [facility] [place] [facility] [place] BOARD ECG 11237 [facility] ROUTINE 3 RELIGION [facility] ECG HOSP HOSP W/LEAST 12 LDS TRCG ONLY W/O I&R THROMBOPL 36305 [facility] ASTIN 3 [facility] [place] TIME HOSP REG BOARD PARTIAL PLASMA/WH OLE BLOOD RADIOLOGI 25064 [facility] C 3 RELIGION RELIG[facility] EXAMINATI HOSP HOSP ON CHEST SINGLE VIEW FRONTAL NATRIURET 62244 [facility] IC 3 RELIGION [place] [address] [facility] TROPONIN 3 RELIGION [facility]IGION QUANTITAT HOSP HOSP [place] BLOOD 16711 [facility] COUNT 3 RELIGION RELIGION COMPLETE HOSP HOSP AUTO&[place] [address] [facility] ANGIOGRAP 3 RADIOLOGY RADIOLOGY HY CHEST ASSOC ASSOC W/CONTRAS T/NONCONT RAST GROUND A[address] [facility] Albina-DELMY ELIZONDO PER CO EMS CO EMS [facility]UTE MILE [facility] A0427 [facility] SERVICE 3 MIKHAIL ELIZONDO ALS CO EMS CO EMS EMERGENCY TRANSPORT LEVEL 1 Encounters Encounter Start End Date Code Location Performer Type Date OFFICE 83011 [facility] OUTPATIEN 7 7 [facility] T VISIT INC 10 MINUTES [facility] MEHRAN - 7 7 [facility] OUTPATIEN INC T OFFICE 47117 LUDMILA LUDMILA OUTPATIEN 7 7 T VISIT 15 MINUTES [facility] MEHRAN - 7 7 [facility] OUTPATIEN INC [facility] MEHRAN - 7 7 [facility] OUTPATIEN INC T OFFICE 09773 GRACE RODRIGUEZ OUTPATIEN 7 7 ORTHOPEDI T NEW 45 C MINUTES ASSOCIAT OFFICE 10393 ALEX JOHNSON OUTPATIEN 7 7 T VISIT 15 MINUTES OFFICE 36271 RELIGION CLEVE OUTPATIEN 7 7 HEALTH T VISIT MEDICAL 25 GROUP MINUTES [facility] - 7 7 N OUTPATIEN COMMUNTIY T HOSPITA OFFICE 30929 [facility] CONSULTAT 7 7 N ION NEUROLOGY NEW/ESTAB PATIENT 60 MIN OFFICE 64777 RELIGION CLEVE OUTPATIEN 7 7 HEALTH T VISIT MEDICAL 25 GROUP MINUTES [facility] MEHRAN - 7 7 [facility] OUTPATIEN INC T OFFICE 71155 [facility] OUTPATIEN 7 7 [facility] T VISIT INC 10 MINUTES [facility] - 7 7 [facility] OUTPATIEN INC T OFFICE 14786 MEHRAN OUTPATIEN 7 7 [facility] T VISIT INC 10 MINUTES OFFICE 90165 [facility] SUJATHA OUTPATIEN 7 7 PHYSICIAN T VISIT S GROUP 15 MINUTES OFFICE 82887 CAROLE MOLINAE OUTPATIEN 7 7 MEDICAL HERRERA T VISIT SERV 25 FOUNDATIO MINUTES [facility] MEHRAN - 7 7 MEM H[facility] OUTPATIEN INC T [facility] MEHRAN - 7 7 [facility] OUTPATIEN INC T OFFICE 70719 [facility] SUJATHA SHAH OUTPATIEN 7 7 PHYSICIAN T VISIT S GROUP 15 MINUTES HOSPITAL [facility] - 7 7 [facility] OUTPATIEN INC T OFFICE 81625 PAVAN MUELLER OUTMICHAEL 7 7 MD ERVIN, T VISIT PSC 10 MINUTES [facility]OSP[facility] 7 7 [facility] OUTPATIEN INC T [facility] - 7 7 [facility] OUTPATIEN INC T EMERGENCY 98382 MARAL GARCIA DEPT 7 7 PHYSICIAN VISIT S, [facility] HIGH SEVERITY& THREAT FUNJ EMERGENCY 42419 [facility]HRAN 7 7 [facility] DEPARTMEN INC T VISIT HIGH/URGE NT SEVERITY HOSPITAL [facility] - 7 7 [facility] OUTPATIEN INC T OFFICE 10357 [facility] ANDREW TRIPLETT 7 7 PHYSICIAN OGHADDAM T VISIT S GROUP 15 MINUTES HOSPITAL ME[facility] - 6 6 [facility] OUTPATIEN INC T OFFICE 56370 PAVAN MUELLER OUTPATIEN 6 6 MD ERVIN, T VISIT PSC 10 MINUTES HOSPITAL [facility] - 6 6 [facility] OUTPATIEN INC T OFFICE 06833 CAROLE TOLENTINO CONSULTAT 6 6 MEDICAL ION SERV NEW/ESTAB FOUNDATIO PATIENT N 30 MIN [facility]OSPITAL [facility] - 6 6 [facility] OUTPATIEN INC [facility] - 6 6 [facility] OUTPATIEN INC T OFFICE 88805 RELIGION APPLE OUTPATIEN 6 6 HEALTH T VISIT MEDICAL 15 GROUP MINUTES OFFICE 69148 MEHRAN OUTPATIEN 6 6 [facility] T VISIT INC 10 MINUTES HOSPITAL MEHR[facility] - 6 6 [facility] OUTPATIEN INC T OFFICE 66413 PAVAN PINO OUTPATIEN 6 6 MD ERVIN, T VISIT PSC 15 MINUTES HOSPITAL [facility] - 6 6 [facility] OUTPATIEN INC T OFFICE 07939 [facility] SAMIA KIM OUTPATIEN 6 6 NURSE T VISIT PRACTITIO 15 NER GR MINUTES EMERGENCY 88930 [facility] 6 6 [facility] DEPARTMEN INC T VISIT LOW/MODER SEVERITY [facility]OSPITAL [facility] - 6 6 [facility] OUTPATIEN INC [facility] [place] - 6 6 N OUTPATIEN COMMUNTIY T [facility] MEHRAN - 6 6 [facility] OUTPATIEN INC T OFFICE 52898 [facility] ANDREW OUTPATIEN 6 6 PHYSICIAN TAWANNA T VISIT S GROUP 15 MINUTES OFFICE 39514 MEHRAN OUTPATIEN 6 6 [facility] T VISIT INC 10 MINUTES OFFICE 12496 [facility] SAMIA KIM OUTPATIEN 6 6 NURSE T NEW 30 PRACTITIO MINUTES NER GR OFFICE 33471 RELIGION MORRIN OUTPATIEN 6 6 HEALTH T VISIT MEDICAL 15 GROUP MINUTES OFFICE 73497 MEHRAN OUTPATIEN 6 6 [facility] T VISIT INC 10 MINUTES HOSPITAL MEHR[facility] - 6 6 [facility] OUTPATIEN INC T OFFICE 17480 PAVAN MONATNO OUTPATIEN 6 6 MD ERVIN, T VISIT PSC 15 MINUTES HOSPITAL [facility] - 6 6 [facility] OUTPATIEN INC T OFFICE 19704 JOSE GO TRA OUTPATIEN 6 6 T VISIT ORTHOPAED 15 ICS PSC MINUTES OFFICE 90688 RELIGION MORRIN OUTPATIEN 6 6 HEALTH T VISIT MEDICAL 15 GROUP MINUTES HOSPITAL ME[facility] - 6 6 [facility] OUTPATIEN INC T OFFICE 38003 JOSE GO OUTPATIEN 6 6 T VISIT ORTHOPAED 15 ICS PSC MINUTES OFFICE 23282 MEHRAN OUTPATIEN 6 6 [facility] T VISIT INC 10 MINUTES HOSPITAL MEHRAN - 6 6 [facility] OUTPATIEN INC T OFFICE 04808 PAVAN MONTANO OUTPATIEN 6 6 MD ERVIN, T VISIT PSC 15 MINUTES OFFICE 73482 MEHRAN DE LA O OUTPATIEN 6 6 [facility] 15 MINUTES OFFICE 04374 CAROLE ESCAMILLA OUTPATIEN 6 6 MEDICAL PAD T VISIT SERV 25 FOUNDATIO MINUTES HOSPITAL MEHRAN - 6 6 [facility] OUTPATIEN INC T OFFICE 80984 PAVAN MONTANO OUTPATIEN 6 6 MD ERVIN, T VISIT PSC 15 MINUTES OFFICE 91080 SHU DELA CRUZ OUTPATIEN 6 6 Medicine HOLLY T NEW 45 MINUTES OFFICE 90296 ME[facility] OUTPATIEN 6 6 [facility] T VISIT INC 10 MINUTES HOSPITAL LUTHERAN - 6 6 [facility]PATIEN & [facility] OFFICE 05352 MEHRAN DE LA O OUTPATIEN 6 6 [facility] 15 MINUTES OFFICE 75752 RELIGION LILIA OUTPATIEN 6 6 HEALTH T VISIT MEDICAL 15 GROUP MINUTES OFFICE 86508 RELIGION LIZETTRIN OUTPATIEN 6 6 HEALTH T VISIT MEDICAL 25 GROUP MINUTES OFFICE 07510 CAROLE JOHNSON OUTPATIEN 6 6 MEDICAL CLA T VISIT SERV 15 FOUNDATIO MINUTES N OFFICE 27342 [facility] MYRIAM- OUTPATIEN 6 6 PHYSICIAN TAWANNA Jon NEW 45 S GROUP JAL MINUTES [facility] MEHRAN - 6 6 [facility] OUTPATIEN INC T OFFICE 19176 PAVAN PINO [facility] OUTPATIEN 6 6 MD ERVIN, T NEW 30 PSC MINUTES [facility] MEHRAN - 6 6 [facility] OUTPATIEN INC T OFFICE 02193 MEHRAN SHARMA OUTPATIEN 6 6 [facility] 15 MINUTES OFFICE 76799 RELIGION LILIA OUTPATIEN 6 6 HEALTH YANY T VISIT MEDICAL 25 GROUP MINUTES HOSPITAL MEHRAN - 6 6 [facility] OUTPATIEN INC T OFFICE 86854 CAROLE RODRIGUEZ OUTPATIEN 6 6 MEDICAL MEGAN T VISIT SERV 15 FOUNDATIO MINUTES N OFFICE 21468 RELIGION KENDRICK DAHL OUTPATIEN 6 6 HEALTH T VISIT MEDICAL 25 GROUP MINUTES OFFICE [address] OUTPATIEN 6 6 [facility] 15 MINUTES OFFICE [address] OUTPATIEN 6 6 [facility] 15 MINUTES HOSPITAL MEHRAN - 6 6 [facility] OUTPATIEN INC T EMERGENCY 61931 MARAL GARCIA 6 6 [facility] T VISIT HIGH/URGE NT SEVERITY OFFICE 05898 MEHRAN SHARMA OUTPATIEN 5 5 [facility] 15 MINUTES EMERGENCY 95972 MARAL GRANT DEPT 5 5 PHYSICIAN U KOLBY VISIT [facility] HIGH SEVERITY& THREAT [facility] HOSPITAL MEHRAN - 5 5 [facility] OUTPATIEN INC T OFFICE 47133 RELIGION LIZETTRIN OUTPATIEN 5 5 HEALTH YANY T VISIT MEDICAL 15 GROUP MINUTES OFFICE 04988 GASTROENT CASE JUS CONSULTAT 5 5 EROLOGY ION AND NEW/ESTAB HEPATOL PATIENT 60 MIN OFFICE [address] OUTPATIEN 5 5 [facility] 15 MINUTES OFFICE 29094 [facility] SUJATHA OUTPATIEN 5 5 PHYSICIAN MILY T VISIT S GROUP 15 MINUTES OFFICE 92612 RELIGIONDanay RODRIGUES OUTPATIEN 5 5 HEALTH YANY T VISIT MEDICAL 25 GROUP MINUTES [facility] MEHRAN - 5 5 [facility] OUTPATIEN INC T OFFICE 90299 CAROLE RODRIGUEZ OUTPATIEN 5 5 MEDICAL MEGAN T VISIT SERV 10 FOUNDATIO MINUTES N OFFICE 31152 RELIGION LILIA OUTPATIEN 5 5 HEALTH YANY T VISIT MEDICAL 15 GROUP MINUTES OFFICE 97461 RELIGIONDanay MONREAL OUTPATIEN 5 5 HEALTH T VISIT MEDICAL 25 GROUP MINUTES OFFICE 20557 CAROLE JOHNSON OUTPATIEN 5 5 MEDICAL CLA T VISIT SERV 10 FOUNDATIO MINUTES N OFFICE 17557 RELIGION TAYLOR CONSULTAT 5 5 HEALTH OFE ION MEDICAL NEW/ESTAB GROUP PATIENT 40 MIN OFFICE 45070 [place] TEAGAN ANT OUTPATIEN 5 5 MEDICAL T VISIT SERV 25 FOUNDATIO MINUTES N OFFICE 22845 RELIGION APPLE OUTPATIEN 5 5 HEALTH ANT T VISIT MEDICAL 15 GROUP MINUTES HOSPITAL MEHRAN - 5 5 [facility] OUTPATIEN INC T EMERGENCY 06415 UNIVERSIT DEPT 5 5 Y VISIT HOSPITAL HIGH SEVERITY& THREAT FUNCJ OFFICE 45693 CAROLE HANKS CONSULTAT 5 5 MEDICAL MAX ION SERV NEW/ESTAB FOUNDATIO PATIENT N 60 MIN HOSPITAL UNIVERSIT - 5 5 Y OUTPATIEN HOSPITAL T EMERGENCY 05468 CAROLE CINDY 5 5 MEDICAL SET DEPARTMEN SERV T VISIT FOUNDATIO HIGH/URGE N NT SEVERITY HOSPITAL CENTRAL - 5 5 RELIGION OUTPATIEN HOSP T EMERGENCY 16654 CENTRAL DEPT 5 5 RELIGION VISIT HOSP HIGH SEVERITY& THREAT FUNJ OFFICE 11976 JUDD MONREAL OUTPATIEN 5 5 HEALTH T VISIT MEDICAL 15 GROUP MINUTES OFFICE 19476 RELIGION TOÑITO OUTPATIEN 5 5 HEALTH MAURICE T VISIT MEDICAL 15 GROUP MINUTES HOSPITAL ME[facility] - 5 5 [facility] OUTPATIEN INC [facility] - 5 5 [facility] OUTPATIEN INC T OFFICE 62339 [place] TEAGAN ANT OUTPATIEN 5 5 MEDICAL T VISIT SERV 25 FOUNDATIO MINUTES [facility] MEHRAN - 5 5 [facility] OUTPATIEN INC T OFFICE 84902 [place] TEAGAN ANT OUTPATIEN 5 5 MEDICAL T NEW 45 SERV MINUTES FOUNDATIO N OFFICE 84200 RELIGION TOÑITO OUTPATIEN 5 5 HEALTH MAURICE T VISIT MEDICAL 15 GROUP MINUTES OFFICE 59948 [facility] MONGIARDO OUTPATIEN 4 4 PHYSICIAN FRA T VISIT S GROUP 15 MINUTES EMERGENCY 14253 MEHRAN 4 4 MEM [facility] DEPARTMEN INC T VISIT MODERATE SEVERITY [facility]OSPITAL [facility] - 4 4 [facility] OUTPATIEN INC T OFFICE 24250 [facility] ALLRAN JR OUTPATIEN 4 4 PHYSICIAN MILY T VISIT S GROUP 15 MINUTES HOSPITAL MEHRAN - 4 4 [facility] OUTPATIEN INC T OFFICE 96680 RELIGION TOÑITO OUTPATIEN 4 4 NEUROLOGY [facility]ICE T VISIT CENTER 25 [facility] HOSPITAL CENTRAL - 4 4 RELIGION OUTPATIEN HOSP [facility] MEHRAN - 4 4 [facility] OUTPATIEN INC T OFFICE 81428 SIMON CHIU OUTPATIEN 4 4 ANT T VISIT CARDIOLOG 15 Y AT [facility] MEHRAN - 4 4 [facility] OUTPATIEN INC T OFFICE 42131 FAYE MCKINNEY OUTPATIEN 4 4 MAX MAX T VISIT 15 MINUTES OFFICE 31824 [facility] VJ OUTPATIEN 4 4 PHYSICIAN FRA T NEW 30 S GROUP MINUTES OFFICE 14225 [facility] SUJATHA SHAH OUTPATIEN 4 4 PHYSICIAN MILY T VISIT S GROUP 15 MINUTES HOSPITAL MEHRAN - 4 4 [facility] OUTPATIEN INC T OFFICE 82651 RELIGION TOÑITO OUTPATIEN 4 4 NEUROLOGY MAURICE T VISIT CENTER 25 KORINA MINUTES OFFICE 71399 SIMON [place] OUTPATIEN 4 4 WAISTBAND SETTER CAROL ANN T NEW 30 ASSOCIATE MINUTES S, OFFICE 96266 [facility] SUJATHA SHAH OUTPATIEN 4 4 PHYSICIAN MILY T NEW 30 S GROUP MINUTES HOSPITAL [facility] - 4 4 [facility] OUTPATIEN INC T OFFICE 59475 RELIGION TOÑITO OUTPATIEN 4 4 NEUROLOGY MAURICE T VISIT CENTER 25 KORINA MINUTES PERIODIC 51216 CALLUM LEONARDM PREVENTIV 4 4 WHI WHI E MED EST PATIENT 40-64YRS OFFICE 88594 RELIGION CALLUM OUTPATIEN 4 4 HEALTH WHI T VISIT MEDICAL 15 GROUP MINUTES OFFICE 91349 CALLUM CALLUM OUTPATIEN 4 4 WHI WHI T VISIT 25 MINUTES OFFICE 23893 APPLE CHIU OUTPATIEN 4 4 ANT ANT T VISIT 15 MINUTES OFFICE 19610 FAYE MCKINNEY OUTPATIEN 4 4 MAX MAX T VISIT 15 MINUTES HOSPITAL CENTRAL - 4 4 RELIGION OUTPATIEN HOSP T OFFICE 25748 VASCELLO VASCELLO OUTPATIEN 4 4 GIANNI GIANNI T VISIT 25 MINUTES OFFICE 37848 APPLE CHIU OUTPATIEN 4 4 ANT ANT T VISIT 15 MINUTES OFFICE 17364 MARII HAM MARII HAM OUTPATIEN 4 4 T NEW 45 MINUTES OFFICE 15119 CALLUM CALLUM OUTPATIEN 4 4 WHI WHI T VISIT 15 MINUTES OFFICE 21146 GO TRA GO TRA OUTPATIEN 4 4 T VISIT 15 MINUTES OFFICE 76833 CALLUM CALLUM OUTPATIEN 4 4 WHI WHI T VISIT 25 MINUTES OFFICE 44136 APPLE CHIU OUTPATIEN 4 4 ANT ANT T VISIT 15 MINUTES HOSPITAL UNIVERSIT - 4 4 Y OUTPATIEN HOSPITAL T OFFICE 18676 UNIVERSIT OUTPATIEN 4 4 Y T VISIT 5 HOSPITAL MINUTES HOSPITAL ME[facility] - 4 4 [facility] OUTPATIEN [facility] MEHRAN - 4 4 [facility] MEHRAN - 4 4 [facility] OUTPATIEN [facility] T OFFICE 34435 GO TRA GO TRA CONSULTAT 4 4 ION NEW/ESTAB PATIENT 60 MIN OFFICE 52290 APPLE CHIU OUTPATIEN 4 4 ANT ANT T VISIT 25 MINUTES OFFICE 03192 ARNOLD ARNOLD OUTPATIEN 4 4 MAX MAX T NEW 30 MINUTES OFFICE 22997 CALLUMMt NOLEN OUTPATIEN 4 4 WHI WHI T VISIT 25 MINUTES EMERGENCY 90949 [place] FRANCISCA ISBELL DEPT 3 3 EMERGENCY VISIT PHYS PSC HIGH SEVERITY& THREAT [facility] CENTRAL - 3 3 RELIGION OUTPATIEN HOSP T EMERGENCY 32237 [place] 3 3 [facility]ION [facility] T VISIT MODERATE SEVERITY
--- OUTSIDE RECORDS SUMMARY | 2017-07-01 21:46 | External Medical Summary Rpt ---
Author Author , MARLA Ochoa MARLA Address Unknown Phone [email or web address] Operation and Maintenance Care Team Providers Care Office Services Associate Name Role Phone ALLRAN JR, ALLRAN JR Unavailable Unavailable ALLRAN JR MILY, ALLRAN Unavailable Unavailable JR MILY PAVAN MUELLER MD, PSC, Unavailable Unavailable PAVAN MUELLER MD, PSC ARNOLD MAX, ARNOLD Unavailable Unavailable MAX ARNOLD MAX, ARNOLD Unavailable Unavailable MAX [facility] Un[facility] Un[facility], [facility] Un[facility] Unavailable [facility], [facility] BEINEKE, BEINEKE Unavailable Unavailable JIMENEZ TER, JIMENEZ TER Unavailable Unavailable BESSON OFE, BESSON Unavailable Unavailable OFE [facility] Unavailable Unavailable [facility]THOP[facility]ED[facility] PSC, [facility] SANTIAGO, SANTIAGO Unavailable Unavailable TEAGAN ANT, TEAGAN ANT Unavailable Unavailable MICHAEL, MICHAEL Unavailable Unavailable MICHAEL MEGAN, MICHAEL Unavailable Unavailable MEGAN [facility] Unavailable Unavailable SERVICE, [facility] Unavailable Unavailable SERVICE, [facility] BUX, BUX Unavailable Unavailable BUX ANJ, BUX ANJ Unavailable Unavailable [facility], Unavailable Unavailable LLC, [facility], Unavailable Unavailable LLC, [facility] Unavailable Unavailable CONSULTANTS O, [facility] CASE JUS, CASE JUS Unavailable Unavailable [facility], Unavailable Unavailable [facility] Unavailable Unavailable PHYS PSC, [facility] Unavailable Unavailable [facility]OC, [facility] Unavailable Unavailable THE BL[facility], [facility] MARKS HESHAM, MARKS HESHAM Unavailable Unavailable JAYLYN MOTA, Unavailable Unavailable JAYLYN MOTA CROSSFIELD KOLBY, Unavailable Unavailable CROSSFIELD KOLBY CROSS[facility] KOLBY, Unavailable Unavailable [facility] KOLYB ALYCE JANET, Unavailable Unavailable ALYCE JANET ALYCE [...] CLA JAROD FEDE, JAROD Unavailable Unavailable FEDE [facility], Unavailable Unavailable [facility] Unavailable Unavailable EMS, [facility] CALLUM WHI, CALLUM Unavailable Unavailable WHI CALLUM WHI, CALLUM Unavailable Unavailable I [facility] Unavailable Unavailable INC, [facility] Unavailable Unavailable HOSPITAL, [facility] Unavailable Unavailable HOSPITAL P, [facility] P [facility], Unavailable Unavailable [facility] GO, GO Unavailable Unavailable GO TRA, GO TRA Unavailable Unavailable GO TRA, GO TRA Unavailable Unavailable SEPINOSA LEL, ESPINOSA LEL Unavailable Unavailable [facility] Unavailable [facility], [facility] Unavailable Unavailable IMAGING ASS, [facility] Unavailable Unavailable ASSOCIAT, [facility] TAYLOR OFE, TAYLOR Unavailable [...] DWI, BRIAN Unavailable Unavailable JR DWI [facility] Unavailable Unavailable ASSOCIATES,, [facility], GARCIA MAX, GARCIA Unavailable Unavailable MAX MARII HAM, MARII HAM Unavailable Unavailable MARII HAM, MARII HAM Unavailable Unavailable APPLE, APPLE Unavailable Unavailable APPLE ANT, APPLE Unavailable Unavailable ANT APPLE ANT, APPLE Unavailable Unavailable ANT LUDMIAL KEYS Unavailable Unavailable LUDMILA KEYS Unavailable Unavailable LUDMILA GRE, Unavailable Unavailable LUDMILA GRE LUDMILA GRE, Unavailable Unavailable LUDMILA GRE HANKS MAX, HANKS Unavailable Unavailable MAX [facility] Unavailable Unavailable SERV ACTIVITY SPECIALIST R, [facility] Unavailable Unavailable SERV ACTIVITY SPECIALIST R, [facility] ACTIV[facility] SPECIALIST R MONGIARDO FRA, Unavailable Unavailable MONGIARDO FRA MORRIN, MORRIN Unavailable Unavailable MORRIN YANY, MORRIN Unavailable Unavailable YANY [facility] Unavailable Unavailable BOARD, [facility], [...] Unavailable CAROL ANN [facility], Unavailable Unavailable [facility]SOLEADD Unavailable Unavailable JAL, [facility] JAL FINESSE MAT, [...] Unavailable FRANCINE PAD [facility]ERDIN[facility] STREETER Unavailable Unavailable [facility] Medicine, ULRF Unavailable Unavailable [facility], Unavailable Unavailable [facility] VASCELLO GIANNI, Unavailable Unavailable VASCELLO GIANNI VASCELLO GIANNI, Unavailable Unavailable VASCELLO GIANNI WALKER, WALKER Unavailable Unavailable WALKER FOR, WALKER Unavailable Unavailable FOR HAROLDO HERRERA, HAROLDO Unavailable Unavailable HERRERA WHITE JUDY, WHITE JUDY Unavailable Unavailable Purpose Continuity of Care Document - 09-05-2013 through 2016 Problems Code Diagnosis DOS Provider Status [id number] OTHER 05-25-2017 L[facility] VITREOUS OPACITIES RIGHT EYE [...] 05-06-2017 COMMUNITY UNSPECIFIED ANESTH OF THE BLUE [id number] ENCOUNTER 05-01-2017 [facility] FOR OTHER [facility] PREPROCEDUR INC AL EXAMINATION Z0100 ENCOUNTER 04-27-2017 LUDMILA EXAM EYES & VISION W/O ABNORMAL FIND M7062 TROCHANTERI 04-20-2017 GRACE Kellogg [facility] LEFT HIP ASSOCIAT N60832 LATTICE 04-15-2017 AELX DEGENERATIO N OF RETINA BILATERAL H5310 UNSPECIFIED 04-15-2017 ALEX SUBJECTIVE VISUAL DISTURBANCE S Q0700 ARNOLD-KEAGAN 04-15-2017 ALEX RI SYND W/O SPINA BIFIDA/HYDR OCEPHLUS [id number] MIGRAINE 04-09-2017 [facility] W/O AURA NEUROLOGY INTRACT W/O STAT MIGRAINOSUS G8929 OTHER 04-09-2017 [facility] CHRONIC HEALTH PAIN MEDICAL GROUP J0140 ACUTE 04-09-2017 [facility] PANSINUSITI HEALTH S MEDICAL UNSPECIFIED GROUP [id number] PAIN IN 04-09-2017 [facility] LEFT HIP HEALTH MEDICAL GROUP R51 HEADACHE 04-09-2017 [facility] R600 LOCALIZED 04-09-2017 [facility] EDEMA COMMUNTIY HOSPITA E039 HYPOTHYROID 04-02-2017 [facility] ISM HEALTH UNSPECIFIED MEDICAL GROUP J0100 ACUTE 04-02-2017 [facility] MAXILLARY HEALTH SINUSITIS MEDICAL UNSPECIFIED GROUP M549 DORSALGIA 04-02-2017 [facility] UNSPECIFIED HEALTH MEDICAL GROUP M5412 RADICULOPAT 03-16-2017 [facility] HY CERVICAL [facility]OS[facility] REGION INC M5416 RADICULOPAT 03-16-2017 [facility] HY LUMBAR [facility] REGION INC K3184 GASTROPARES 02-06-2017 [facility] GROUP D259 LEIOMYOMA 02-05-2017 [place] [facility]ICAL OF UTER[place] SERV UNSPECIFIED FOUNDATION I10 ESSENTIAL 02-05-2017 [place] [facility] PRIMARY SERV HYPERTENSIO FOUNDATION N A23332 UNSPECIFIED 02-05-2017 [place] [facility] OVARIAN SERV CYST RIGHT FOUNDATION SIDE D67729 UNSPECIFIED 02-05-2017 [place] [facility] OVARIAN SERV CYST LEFT FOUNDATION SIDE N898 OTHER 02-05-2017 [place] [facility] SPECIFIED SERV NONINFLAMMA FOUNDATION TORY DISORDERS VAGINA R978 OTHER 02-05-2017 [place] [facility] ABNORMAL SERV TUMOR FOUNDATION MARKERS Z8041 FAMILY 02-05-2017 [place] [facility] HISTORY OF SERV MALIGNANT FOUNDATION NEOPLASM OF OVARY R1032 LEFT LOWER 01-30-2017 [facility]ANT [facility] PAIN IMAGING ASS R1013 EPIGASTRIC 01-20-2017 COMMUNITY PAIN ANESTH OF THE BLUE K651 PERITONEAL 01-05-2017 [facility] ABSCESS PHYSICIANS GROUP G4719 OTHER 12-31-2016 [...] 12-11-2016 LAB DEVENDRA OF MANISH MICTURITION HOLDINGS A21378 UNSPECIFIED 11-10-2016 [facility] OVARIAN [facility] CYST INC UNSPECIFIED SIDE M791 MYALGIA 10-17-2016 [facility] INC G909 DISORDER 09-30-2016 REST[facility]IST [facility] AUTONOMIC MEDICAL NERVOUS GROUP SYSTEM UNS R072 PRECORDIAL 09-30-2016 [facility] PAIN HEALTH MEDICAL GROUP E782 MIXED 09-26-2016 LAB DEVENDRA HYPERLIPIDE MANISH HERIBERTO HOLDINGS H30235 ENCOUNTER 09-26-2016 [facility], LICENSED PSYCHOLOGIST DIRECTOR EXAM LLC GENERAL RTN W/O ABNORMAL FIND Z1151 ENCOUNTER 09-26-2016 [facility], FOR LLC SCREENING FOR HUMAN PAPILLOMAVI IVET L659 NONSCARRING 09-12-2016 [facility] HAIR LOSS [facility] UNSPECIFIED INC [id number] LAC W/O FB 09-01-2016 [facility] RT MIDDLE [facility] FINGER W/O INC DAMAGE NAIL INIT [id number] LAC W/O FB 09-01-2016 MARAL UNS FINGER PHYSICIANS, W/O DAMAGE PLLC NAIL INITIAL R137KAQ CONTACT OTH 09-01-2016 [facility]ARP [facility] OBJECT NOT INC ELSWHERE CLASS INIT M28692 KITCHEN 09-01-2016 [facility] SINGLE-FAM [facility] HOUSE PLACE INC OCCUR EXT CAUSE Z23 ENCOUNTER 09-01-2016 [facility] FOR [facility] IMMUNIZATIO INC N M4806 SPINAL 08-27-2016 [facility] STENOSIS [facility] LUMBAR HOSPITA REGION M5126 OTH 08-27-2016 [facility] INTERVERTEB COMMUNTIY RAL DISC HOSPITA DISPLACEMEN T LUMBAR RGN M542 CERVICALGIA 08-25-2016 [facility] D229 MELANOCYTIC 08-07-2016 [facility] NURSE NEVI PRACTITIONE UNSPECIFIED R GR I868 VARICOSE 08-07-2016 [facility] NURSE VEINS OF PRACTITIONE OTHER R GR SPECIFIED SITES L709 ACNE 08-07-2016 [facility] NURSE UNSPECIFIED PRACTITIONE R GR R601 GENERALIZED 08-05-2016 LAB DEVENDRA EDEMA MANISH HOLDINGS M8580 OTH SPEC 07-08-2016 [facility] D/O [facility] DENSITY MEDICAL STRUCTURE GROUP UNS SITE M545 LOW BACK 07-03-2016 [facility] PAIN [facility]THOP[facility]EDIC S PSC M461 SACROILIITI 06-27-2016 [facility] S NOT [facility] ELSEWHERE INC CLASSIFIED H5213 MYOPIA 06-12-2016 [facility] BILATERAL SERV FOUNDATION H5319 OTHER 06-12-2016 [facility] MEDICAL SUBJECTIVE SERV VISUAL FOUNDATION DISTURBANCE S M93360 CHRONIC 05-14-2016 [facility]IST MIGRAINE HEALTH W/O AURA MEDICAL INTRACT W/O GROUP STAT MIGR M810 AGE-RELATED 05-09-2016 [facility] OSTEOPOROSI INC S W/O CURRNT PATH FX Z1231 ENCOUNTER 05-09-2016 [facility] SCREENING MEDICAL MAMMO MALIG IMAGING ASS NEOPLASM BREAST J33367 ENCOUNTER 05-09-2016 [place] FOR MEDICAL SCREENING IMAGING ASS FOR OSTEOPOROSI S K5909 OTHER 05-06-2016 [facility] CONSTIPATIO Medicine N K591 FUNCTIONAL 05-06-2016 [facility] DIARRHEA Medicine M4800 SPINAL 05-06-2016 [facility] UNSPECIFIED R140 ABDOMINAL 05-06-2016 [facility] DISTENSION Medicine GASEOUS R6881 EARLY 05-06-2016 [facility] SATIETY Medicine R5382 CHRONIC 04-29-2016 [facility] FATIGUE [facility] UNSPECIFIED MEDICAL GROUP R5383 OTHER 04-18-2016 LAB DEVENDRA FATIGUE MANISH HOLDINGS R42 DIZZINESS 04-07-2016 [facility] GIDDINESS GROUP M149R5F CONCUSSION 04-07-2016 [facility] WITHOUT LOC PHYSICIANS INITIAL GROUP ENCOUNTER P43899 ACUTE 03-02-2016 [facility] SUPPURATIVE MEMORIAL OM W/O HOSPITAL RUPT EAR DRUM UNS EAR R110 NAUSEA 02-27-2016 [facility] HEALTH MEDICAL GROUP F768A6A CONCUSSION 02-27-2016 [facility] W/LOC UNS HEALTH DURATION MEDICAL INITIAL GROUP ENCOUNTER M1611 UNILATERAL 01-29-2016 [facility] PRIMARY MEDICAL OSTEOARTHRI IMAGING ASS TIS RIGHT HIP P19814 PAIN IN 01-29-2016 [facility] RIGHT HIP MEDICAL IMAGING ASS H5210 MYOPIA 01-15-2016 [place] MEDICAL UNSPECIFIED SERV EYE FOUNDATION H5203 HYPERMETROP 12-27-2015 LUD[facility]IL[facility] IA GRE BILATERAL J069 ACUTE UPPER 12-13-2015 LAB DEVENDRA MANISH RESPIRATORY HOLDINGS INFECTION UNSPECIFIED R928 OTH ABNORM 12-13-2015 [facility] & HEALTH INCONCLUSIV MEDICAL E FIND ON GROUP DX IMAG BREAST Z6829 BODY MASS 12-13-2015 [facility] INDEX BMI HEALTH 29.0-29.9 MEDICAL ADULT GROUP J0190 ACUTE 12-09-2015 [facility] R05 COUGH 11-16-2015 MARALRadha ASTUDILLO, [facility] M5430 SCIATICA 10-17-2015 [facility] UNSPECIFIED HEALTH SIDE MEDICAL GROUP H539 UNSPECIFIED 10-04-2015 [facility] VISUAL HEALTH DISTURBANCE MEDICAL GROUP R358 OTHER 10-04-2015 [facility]IST POLYURIA HEALTH MEDICAL GROUP R079 CHEST PAIN 10-02-2015 [place] MEDICAL UNSPECIFIED SERV FOUNDATION R9431 ABNORMAL 10-02-2015 [facility] ELECTROCARD LAR IOGRAM CONSULTANTS O M09198 OTHER LONG 10-01-2015 [facility] TERM PHYSICIANS CURRENT GROUP DRUG THERAPY Z0000 ENCOUNTER 09-25-2015 [facility] GEN ADULT HEALTH MED EXAM MEDICAL W/O GROUP ABNORMAL FIND A6000 HERPESVIRAL 08-17-2015 [facility] INFECTION HEALTH OF MEDICAL UROGENITAL GROUP SYSTEM UNS B009 HERPESVIRAL 08-17-2015 [facility] INFECTION HEALTH UNSPECIFIED MEDICAL GROUP Z202 CONTACT 08-17-2015 [facility] WITH HEALTH EXPOSURE MEDICAL INFECT GROUP SEXUAL MODE TRANSMS 08194 DEGEN 07-26-2015 [facility] LUMBAR/LUMB MEDICAL OSACRAL IMAGING ASS INTERVERTEB RAL DISC 7242 LUMBAGO 07-26-2015 [facility] 31966 PROGRESSIVE 07-25-2015 [facility]ICAL HIGH SERV MYOPIA FOUNDATION 78519 CHRONIC 07-11-2015 [facility]IST MIGRAINE HEALTH W/O MEDICAL W/INTRACTAB GROUP LE W/O SM 7231 CERVICALGIA 07-11-2015 [facility] 7049 UNSPECIFIED 07-02-2015 [facility]IST DISEASE OF HEALTH HAIR AND MEDICAL HAIR GROUP FOLLICLES 7245 UNSPECIFIED 07-02-2015 [facility] BACKACHE HEALTH MEDICAL GROUP 7881 DYSURIA 07-02-2015 LAB DEVENDRA MANISH HOLDINGS 3384 CHRONIC 06-22-2015 LAB DEVENDRA PAIN MANISH SYNDROME HOLDINGS 5990 URINARY 06-22-2015 LAB DEVENDRA TRACT MANISH INFECTION HOLDINGS SITE NOT SPECIFIED 02611 OTHER 06-15-2015 [facility] MEDICAL VITREOUS SERV OPACITIES FOUNDATION 5363 GASTROPARES 05-14-2015 [facility] IS SERV FOUNDATION 5609 UNSPECIFIED 05-14-2015 [facility] INTESTINAL SERV FOUNDATION OBSTRUCTION 7873 FLATULENCE 05-14-2015 [facility] MEDICAL ERUCTATION SERV AND GAS FOUNDATION PAIN 4011 ESSENTIAL 05-01-2015 [facility] HYPERTENSIO HEALTH N, BENIGN MEDICAL GROUP 37744 ACUTE 05-01-2015 [facility] IDIOPATHIC HEALTH PERICARDITI MEDICAL S GROUP 97932 OTHER CHEST 05-01-2015 [facility] PAIN [facility] MEDICAL GROUP V7281 PRE-OPERATI 05-01-2015 [facility] CARDIOVASCU MEDICAL LAR GROUP EXAMINATION 7213 LUMBOSACRAL 04-23-2015 [facility] SPONDYLOSIS IMAGING ASS WITHOUT MYELOPATHY 89693 DISPLCMT 04-23-2015 [place] LUMBAR [facility] INTERVERT IMAGING ASS DISC W/O MYELOPATHY 08362 LATTICE 04-20-2015 [facility] MEDICAL DEGENERATIO SERV N OF FOUNDATION PERIPHERAL RETINA 2449 UNSPECIFIED 04-08-2015 [facility] HYPOTHYROID ISM 3671 MYOPIA 04-08-2015 [facility] 49614 OTHER 04-08-2015 [facility] DISTORTIONS AND ENTOPTIC PHENOMENA 3688 OTHER 04-08-2015 [place] MEDICAL SPECIFIED SERV VISUAL FOUNDATION DISTURBANCE S 55369 PAIN IN [place] 04-08-2015 [facility] 4019 UNSPECIFIED 04-08-2015 [facility] HYPERTENSIO N 4239 UNSPECIFIED 04-08-2015 [place] DISEASE [facility] PERICARDIUM 4289 UNSPECIFIED 04-08-2015 [facility] FAILURE SERV ACTIVITY SPECIALIST R 18865 OTHER 04-08-2015 [facility] LUNG NOT ELSEWHERE CLASSIFIED 24060 CHEST PAIN 04-08-2015 [facility] MEDICAL UNSPECIFIED SERV FOUNDATION V1259 PERS HX, 04-08-2015 [facility] MEDICAL OTHER SERV DISEASES OF FOUNDATION CIRCULATORY SYSTEM 3699 UNSPECIFIED 04-07-2015 [facility] VISUAL EMERGENCY LOSS PHYS PSC 78169 UNSPECIFIED 04-07-2015 [facility] DISORDER AMBULANCE OF EYE SERVICE 7820 DISTURBANCE 03-29-2015 [facility] SKIN [facility] SENSATION MEDICAL GROUP 62401 REGULAR 03-28-2015 [place] [facility] ASTIGMATISM SERV FOUNDATION 99578 INTERMITTEN 03-28-2015 [place] [facility] T SERV EXOTROPIA, FOUNDATION ALTERNATING 96038 OTHER 03-01-2015 [facility] SPECIFIED MEDICAL DISORDERS IMAGING ASS OF BREAST 87516 UNSPECIFIED 03-01-2015 [facility] ABNORMAL [facility] MAMMOGRAM INC 77017 ATROPHIC 02-26-2015 [facility], GASTRITIS LLC WITHOUT MENTION OF HEMORRHAGE 93888 UNS 02-26-2015 [facility] GASTRITIS&G [facility] ASTRODUODIT INC IS W/O MENTION HEMORR 15023 NAUSEA 02-26-2015 [facility] ALONE [facility] INC 51350 ABDOMINAL 02-26-2015 [facility] PAIN, [facility] GENERALIZED INC V5869 LONG-TERM 02-26-2015 [facility] (CURRENT) [facility] USE OF INC OTHER MEDICATIONS 7804 DIZZINESS 11-29-2014 [facility] GIDDINESS MEDICAL GROUP 7840 HEADACHE 11-29-2014 [facility] 17563 OTHER 10-27-2014 [facility] DISEASES OF PHYSICIANS LARYNX GROUP 81407 DYSPHONIA 10-27-2014 [facility] PHYSICIANS GROUP 42519 DYSPHAGIA 10-27-2014 [facility] UNSPECIFIED PHYSICIANS GROUP V642 SURG/OTH 10-23-2014 [facility] PROC NOT [facility] OUT HOSPITAL P BECAUSE PTS DECN 30492 EARLY 10-17-2014 [facility] SATIETY PHYSICIANS GROUP 54032 DYSPHAGIA 10-17-2014 [facility] OROPHARYNGE PHYSICIANS AL PHASE GROUP 19296 ABDOMINAL 10-17-2014 [facility] PAIN, PHYSICIANS EPIGASTRIC GROUP 45310 INSOMNIA 09-27-2014 [facility] UNSPECIFIED NEUROLOGY CENTER [place]INA V700 ROUTINE 09-21-2014 [facility] MEDICAL INC EXAM@HEALTH CARE FACL V7612 OTHER 09-21-2014 [facility] SCREENING MEDICAL MAMMOGRAM IMAGING ASS 29436 ABDOMINAL 09-18-2014 [place] PAIN, MEDICAL UNSPECIFIED IMAGING ASS SITE 3829 UNSPECIFIED 09-16-2014 FAYE SANTANA OTITIS MEDIA 4619 ACUTE 09-16-2014 FAYE SANTANA SINUSITIS, UNSPECIFIED V0481 NEED 09-16-2014 FAYE SANTANA PROPHYLACTI C VACCINATION &INOCULATIO N FLU 3502 ATYPICAL 09-06-2014 [facility] FACE PAIN NEUROLOGY CENTER [place] 48379 MIGRAINE 08-24-2014 REST[facility]IST W/O AURA NEUROLOGY INTRACT W/O CENTER [place] STATUS MIGRAINOSUS 2181 INTRAMURAL 08-23-2014 [facility] LEIOMYOMA [facility] OF UTERUS ASSOCIATES, 2189 LEIOMYOMA 08-15-2014 [facility] OF UTERUS, MEDICAL UNSPECIFIED IMAGING ASS 6202 OTHER AND 08-15-2014 [facility] UNSPECIFIED MEM HOSP OVARIAN INC CYST 6259 UNSPEC 08-15-2014 [facility] IMAGING ASS W/FEMALE GENITAL ORGANS 7812 ABNORMALITY 08-09-2014 [facility] NEUROLOGY CENTER KORINA V7231 ROUTINE 08-07-2014 CALLUM JERRYI GYNECOLOGIC AL EXAMINATION V762 SCREENING 08-07-2014 LABORATORY FOR DEVENDRA OF MALIGNANT MANISH H NEOPLASM OF THE CERVIX 50476 ESOPHAGEAL 07-31-2014 [facility] MEDICAL GROUP 7291 UNSPECIFIED 06-04-2014 EMPI INC MYALGIA AND MYOSITIS 5950 ACUTE 05-03-2014 CALLUM JERRYI CYSTITIS 53153 OTHER 05-03-2014 APPLE [place] [address] OSTEOARTHRO 04-21-2014 FAYE Grossman INVLV MX SITES [place] SPE[place] 26447 BENIGN 04-17-2014 [facility] PAROXYSMAL [facility] POSITIONAL HOSP VERTIGO V571 OTHER 04-17-2014 [facility] PHYSICAL [facility] THERAPY HOSP 7210 CERVICAL 03-21-2014 VASCELLO SPONDYLOSIS GIANNI WITHOUT MYELOPATHY 7230 SPINAL 03-20-2014 [place] STENOSIS IN [place] CERVICAL REGION 20833 SPINAL STEN 03-20-2014 [facility] LUMB REG [place] W/O NEUROGENIC CLAUDICATIO N 50175 SPINA 03-20-2014 [place] BIFIDA WITH [place]OL[place] HYDROCEPHAL US CERVICAL REGION 37723 POSTLAMINEC 01-31-2014 MARII HAM JUSTINO SYNDROME CERVICAL REGION 7244 THORACIC/ABRAHAM 01-31-2014 MARII HAM MBOSACRAL NEURITIS/RA DICULITIS UNSPEC 0549 HERPES 01-26-2014 CALLUM JERRYI SIMPLEX WITHOUT MENTION OF COMPLICATIO N 5533 DIAPHRAGMAT 01-19-2014 CALLUM JERRYI ALTAGRACIA W/O MENTION OBSTRUCTION /GANGREN 7821 RASH AND 01-19-2014 CALLUM WHI OTHER NONSPECIFIC SKIN ERUPTION 7850 UNSPECIFIED 01-18-2014 APPLE ANT TACHYCARDIA 63665 CHRONIC 01-13-2014 [facility] W/O AURA W/O INTRACTABLE W/O SM 7218 OTHER 01-10-2014 ALYCE ALLIED JANET DISORDERS OF SPINE 7220 DISPLCMT 01-10-2014 ALYCE CERV JANET INTERVERT DISC WITHOUT MYELOPATHY 60873 KYPHOSIS 01-10-2014 ALYCE ACQUIRED JANET POSTURAL V454 ARTHRODESIS 01-10-2014 ALYCE STATUS JANET V1641 FAMILY 01-05-2014 ALYCE HISTORY OF JANET MALIGNANT NEOPLASM OVARY 7224 DEGENERATIO 12-29-2013 GO TRA N OF CERVICAL INTERVERTEB RAL DISC 2724 OTHER AND 12-28-2013 APPLE ANT UNSPECIFIED HYPERLIPIDE HERIBERTO 19387 ABDOMINAL 12-08-2013 CALLUM WHI PAIN, LEFT LOWER QUADRANT 4299 UNSPECIFIED 09-10-2013 [facility] DISEASE HOSP 26354 ALTERED 09-06-2013 [facility] MENTAL RADIOLOGY STATUS ASSOC [...] MG #3 TA 93 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 42 05 06 30 30 00 RI [...] CARDINAL SAGITTAL- 7 ORTHOTICS ORTHOTICS CORONAL , [facility] , [facility] CONTRL RIGD ANT POST PANELS ANES 24343 [facility] INTEG 7 ANESTH MUSC & OF THE NRV HEAD BLUE NECK&POST ERIOR TRUNK INFUSION C1772 [facility] LAURENT PUMP 7 MEM HOSP MEM HOSP PROGRAMMA INC INC BLE IMPLTJ 38865 [facility] LAURENT REVJ/RPSG 7 MEM HOSP [facility]OS[facility] INC INC ITHCL/EDR L CATH ELEMENTARY ASSISTANT PRINCIPAL W/O PEREZ IMPLTJ/RP 03933 [place] SPOONAMOR LCMT 7 SURGICAL E ITHCL/EDR L DRUG NFS PRGRBL PUMP UNCLASSIF J3490 [facility] LAURENT IED DRUGS 7 MEM HOSP [facility]OS[facility] INC INC BASIC 99604 [facility] LAURENT METABOLIC 7 MEM HOSP MEM HOS[facility] PANEL INC INC CALCIUM TOTAL BLOOD 06830 [facility] LAURENT COUNT 7 MEM HOSP MEM HOSP COMPLETE INC INC AUTO&AUTO DIFRNTL WBC DETERMINA 12188 LUDMILA PURCELL 7 REFRACTIV E STATE OPHTH 27280 LUDMILA [facility] 7 XM&EVAL COMPRHNSV ESTAB PT 1/> ARTHROCEN 05351 GRACE MALDONADOIS 7 ORTHOPEDI ASPIR&/IN C J MAJOR ASSOCIAT JT/BURSA W/O US COMPUTERI 07584 ALEX JOHNSON ZED 7 OPHTHALMI C IMAGING RETINA DUP-SCAN 23661 CNTRL [place] SCALF XTR VEINS 7 RADIOLOGY UNILATERA L/LIMITED STUDY URNLS DIP 91561 [facility]IST CLEVE 7 HEALTH STICK/TAB MEDICAL LET RGNT GROUP NON-AUTO W/O MICRSCP RADEX HIP 94784 [facility] PARKS 7 RADIOLOGY UNILATERA ASSOC L WITH PELVIS 2-3 [place] [address] CAROLE ZARCO TRANSVAGI 7 [place] [address] GRACE SANTIAGO ABDOMEN & 7 MEDICAL PELVIS IMAGING W/CONTRAS ASS T MATERIAL FINAL G9638 [facility] SANTIAGO REPORTS 7 MEDICAL W/O DOC IMAGING 1/MORE ASS DOSE REDUCTION TECH FINAL G9551 [facility] SANTIAGO REPR ABD 7 MEDICAL IMAG STS IMAGING W/O ASS INCID[place] F[place]: [place] [address] [facility] LAURENT UREA 7 MEM HOS[facility] NITROGEN INC INC QUANTITAT [place] COLLECTIO 37098 [facility] LAURENT N VENOUS 7 [facility] BLOOD INC INC VENIPUNCT URE CREATININ 63960 MEHR[facility] LAURENT E BLOOD 7 [facility] INC INC ANES 13291 [facility] UPPER GI 7 ANESTH ENDOSCOPY OF THE PROXIMAL BLUE TO DUODENUM SLEEP STD 61189 MEHRAN LAURENT AIRFLOW 7 [facility] HRT INC INC RATE&O2 [place] [address] MEHRAN LAURENT INFUSION 7 [facility] THERAPY/P INC INC ROPHYLAXI S /DX 1ST TO 1 HR URNLS DIP 04369 [facility] 7 [facility] STICK/TAB INC INC LET REAGENT AUTO MICROSCOP Y THERAPEUT 87336 MEHRAN LAURENT IC 7 [facility] INJECTION INC INC IV PUSH EACH NEW DRUG URINE 55801 MEHRAN LAURENT 7 [facility] TEST INC [place] [address] MEHRAN LAURENT HEAD/BRAI 7 [facility] N W/O INC INC CONTRAST MATERIAL FINAL G9638 [place] SANT[facility] REPORTS 7 MEDICAL W/O DOC IMAGING 1/MORE [place]X 28254 PAVAN MUELLER DX/THER 7 MD ERVIN, SBST PSC INTRLMNR LMBR/SAC W/IMG GDN ROM 60310 MEHRAN LAURENT CHELSEY&REPR 7 [facility] T EA XTR INC INC EX HAND/EA TRNK SCTJ SPI GLUC BLD 18387 MEHRAN LAURENT GLUC MNTR 7 [facility] DEV INC INC CLEARED FDA SPEC HOME USE COMPREHEN 05792 [facility] SIVE 7 [facility]ISH [facility] METABOLIC [facility] HOLDINGS PANEL C-REACTIV 03947 [facility] E PROTEIN 7 [facility] ANTINUCLE 58757 [facility] AR 7 MANISH MANISH [place] [address] [facility] BLOOD/URI 7 MANISH MANISH C ACID HOLDINGS HOLDINGS BLOOD 03369 [facility] DEV[facility]A COUNT 7 MANISH MANISH COMPLETE HOLDINGS HOLDINGS AUTO&AUTO DIFRNTL WBC RHEUMATOI 59697 [facility] D FACTOR 7 MANISH MANISH QUANTITAT HOLDINGS HOLDINGS [place] CHEMODERV 50257 [facility] SHOJAEI-M ATE 7 PHYSICIAN OGHADDAM FACIAL/TR S GROUP IGEM/CERV MUSC MIGRAINE BOTULINUM J0585 [facility] MYRIAM-Mt TOXIN 7 PHYSICIAN OGHACATRACHITAAM TYPE A S GROUP PER UNIT COLLECTIO 18196 MEHRAN [facility] N VENOUS 6 [facility] BLOOD INC INC VENIPUNCT URE IMMUNOASS 67077 MEHRAN HEON AY TUMOR 6 [facility] ANTIGEN INC INC QUANTITAT [place] INJECTION 36995 PAVAN MUELLER MD, SINGLE/ML PSC T TRIGGER POINT 1/2 [place] [address] MEHRAN HEON TRANSVAGI 6 [facility] NAL INC INC CYTP C/V 43824 [facility], PICKLESIM AUTO THIN 6 LLC ER JR YEE LYR PREPJ SCR MNL RESCR PHYS LIPID 87947 LAB DEVENDRA LAB DEVENDRA PANEL 6 [facility] HOLDINGS HOLDINGS COMPREHEN 10234 LAB DEVENDRA LAB DEVENDRA SIVE 6 [facility] METABOLIC [place] [address] LAB DEVENDRA LAB DEVENDRA THYROID 6 [facility] STIMULATI HOLDINGS [place] [address] LAB DEVENDRA LAB DEVENDRA THYROXINE 6 [facility] TOTAL HOLDINGS HOLDINGS IADNA 20046 [facility] LAB[facility], PICKLESIM HUMAN 6 LLC ER JR YEE [place]AP[place] VIRUS HIGH-RISK TYPES COLLECTIO 24210 MEHRAN LAURENT N VENOUS 6 [facility] [place] [address] MEHRAN LAURENT FREE 6 [facility] [place] [address] MEHRAN LAURENT THYROID 6 [facility] STIMULATI [place] [address] MEHRAN LAURENT TRIIODOTH 6 [facility] YRONINE INC INC T3 FREE BLOOD 76228 MEHRAN LAURENT COUNT 6 [facility] COMPLETE INC INC AUTO&AUTO DIFRNTL WBC IM ADM 52259 MEHRAN LAURENT PRQ ID 6 [facility] SUBQ/IM INC INC NJXS 1 VACCINE SIMPLE 23327 MEHRAN LAURENT REPAIR 6 [facility] SCALP/NEC INC INC K/AX/BLUE T/TRUNK 2.5CM/< ANESTHESI 81455 [facility] A LUMBAR 6 ANESTHESI JAVI REGION A GROUP NOS PS LAMNOTMY 38108 [facility] GO INCL 6 W/DCMPRSN ORTHOPAED NRV ROOT ICS PSC 1 INTRSPC LUMBR BOTULINUM J0585 [facility] MYRIAM-Mt TOXIN 6 PHYSICIAN OGHADDAM TYPE A S GROUP PER UNIT CHEMODERV 64771 [facility] MYRIAM-M ATE 6 PHYSICIAN OGHADDAM FACIAL/TR S GROUP IGEM/CERV [facility] MIGRAINE COMPREHEN 84248 LAB DEVENDRA LAB DEVENDRA SIVE 6 [facility] METABOLIC HOLDINGS HOLDINGS PANEL BLOOD 63568 LAB DEVENDRA LAB DEVENDRA COUNT 6 [facility] COMPLETE HOLDINGS HOLDINGS AUTO&AUTO DIFRNTL WBC ECG 90823 MEHRAN TORRES JR ROUTINE 6 [facility] W/LEAST P 12 LDS I&R ONLY BLOOD 92159 MEHRAN LAURENT COUNT 6 [facility] COMPLETE INC INC AUTO&AUTO DIFRNTL WBC RADIOLOGI 70660 [facility] C EXAM 6 MEDICAL CHEST 2 IMAGING VIEWS ASS FRONTAL&L ATERAL COLLECTIO 00040 MEHRAN LAURENT N VENOUS 6 [facility] BLOOD INC INC VENIPUNCT URE BASIC 32685 MEHRAN LAURENT METABOLIC 6 [facility] PANEL INC INC CALCIUM TOTAL DRUG TST G0477 MEHRAN LAURENT PRESUMP;C 6 [facility] PBL BEING INC INC READ DC OPT OBV ONLY ECG 18693 MEHRAN LAURENT ROUTINE 6 [facility] ECG INC INC W/LEAST 12 LDS TRCG ONLY W/O I&R INJECTION 30929 PAVANJAY JAY VILLEGASX ANJ 6 MD ERVIN, SINGLE/ML PSC T TRIGGER POINT 1/2 [place] MRI 13568 [facility] TRA SPINAL 6 CANAL ORTHOPAED LUMBAR ICS PSC W/O CONTRAST MATERIAL INJ PROC G0260 MEHRAN LAURENT SI 6 [facility] JNT;ANES INC INC STEROID&/ [place] [address] PAVAN DUFF CHARMAINE JOINT 6 MD ERVIN, ARTHRGRPH PSC Y&/ANES/S TEROID W/[place] RADEX HIP 79102 [facility] GO 6 [place] ORTHOPAED L WITH ICS PSC PELVIS 1 VIEW DRUG TST G0477 MEHRAN LAURENT PRESUMP;C 6 [facility] PBL BEING INC INC READ DC OPT OBV ONLY THERAPEUT 47821 MEHARN DE LA O IC 6 [facility] TIC/DX INJECTION SUBQ/IM INJECTION J1885 MEHRAN DE LA O 6 [facility]OL[facility]. [facility] TROMETHAM INE PER 15 MG INJECTION J1040 MEHRAN DE LA O 6 [facility] DNISOLONE ACETATE 80 MG SENSORMOT 13165 [place] OR XM 6 MEDICAL MEDICAL W/MECHANICAL DETAILER SERV SERV CHELSEY FOUNDATIO FOUNDATIO OCULAR N N DEVIJ W/I&R SPX COMPUTERI 91081 CAROLE ESCAMILLA ZED 6 MEDICAL PAD OPHTHALMI SERV C IMAGING FOUNDATIO RETINA N CHEMODERV 48612 RESTORATIONIST TOÑITO ATE 6 [facility] FACIAL/TR MEDICAL IGEM/CERV GROUP [facility] MIGRAINE BOTULINUM J0585 RESTORATIONIST TOÑITO TOXIN 6 [facility] TYPE A MEDICAL PER UNIT GROUP COMPUTER- 01632 [facility] AIDED 6 MEDICAL JANET DETECTION IMAGING ASS SCREENING MAMMOGRAP HY DXA BONE 74841 [facility] DENSITY 6 MEDICAL JANET STUDY 1/> IMAGING SITES ASS AXIAL SKEL SCREENING G0202 [facility] 6 MEDICAL JANET MAMMOGRAP IMAGING HY JOSELIN ASS INCL CAD WHEN PERFORMD [facility] G[address] [facility] ASSESS & MGMT PT INJECTION J1885 MEHRAN DE LA O [address] [place] [address] TROMETHAM INE PER 15 MG THERAPEUT 70306 MEHRAN DE LA O IC [address] [facility] TIC/DX INJECTION SUBQ/IM INJECTION J1040 MEHRAN DE LA O [address] [place] [address] DNISOLONE ACETATE 80 MG INJECTION J1885 [facility] TROMETHAM INE PER 15 MG THERAPEUT 58582 RESTORATIONIST MORRIN IC 6 HEALTH PROPHYLAC MEDICAL TIC/DX GROUP INJECTION SUBQ/IM COMPREHEN 07848 LAB DEVENDRA LAB DEVENDRA SIVE 6 [facility] METABOL[facility] [place] [address] LAB DEVENDRA LAB DEVENDRA IRON 6 [facility] [place] [address] LAB DEVENDRA LAB DEVENDRA FOLIC 6 [facility] [place] [address] LAB DEVENDRA LAB DEVENDRA THYROID 6 [facility] STIMULATI HOLDINGS HOLDINGS NG HORMONE TSH BLOOD 28027 LAB DEVENDRA LAB DEVENDRA COUNT 6 [facility] COMPLETE HOLDINGS HOLDINGS AUTO&AUTO DIFRNTL WBC IRON 90206 LAB DEVENDRA LAB DEVENDRA BINDING 6 [facility] CAPACITY HOLDINGS HOLDINGS CYANOCOBA 31083 LAB DEVENDRA LAB DEVENDRA DAVID 6 [facility] VITAMIN HOLDINGS HOLDINGS B-12 25 32773 LAB DEVENDRA LAB DEVENDRA HYDROXY 6 [facility] INCLUDES HOLDINGS HOLDINGS FRACTIONS IF PERFORMED MICROSOMA 49738 LAB DEVENDRA LAB DEVENDRA L 6 [facility] ANTIBODIE [place] [address] LAB DEVENDRA LAB DEVENDRA THYROXINE 6 [facility] [place] [address] LAB DEVENDRA LAB DEVENDRA TRIIODOTH 6 [facility] YRONINE HOLDINGS HOLDINGS T3 TOTAL TT3 LOCM Q9967 MEHRAN HEON 300-399 6 [facility] MG/ML INC INC IODINE CONCENTRA [place]ION [place] NJX 24969 PAVAN DURON CRI DX/THER 6 MD ERVIN, SBST PSC EPIDURAL/ SUBARACH LUMBAR/SA CRAL INJECTION J1030 MEHRANZOYA HEON 6 [facility] METHYLPRE INC INC DNISOLONE ACETATE 40 MG HOSPITAL G0463 MEHRAN LAURENT OUTPATIEN 6 [facility] T CLIN INC INC VISIT ASSESS & MGMT PT THERAPEUT 34510 RESTORATIONISTDanay RODRIGUES IC 6 [facility] PROPHYLAC MEDICAL TIC/DX GROUP INJECTION SUBQ/IM INJECTION J3301 RESTORATIONIST LILIA 6 [facility]ALTH [facility] TRIAMCINO MEDICAL LONE GROUP AC[place]ON[place] [address] [place] [address] [place] [facility] CERVICAL 6 MEDICAL JANET SPINE W/[place] [address] [facility] [facility] HEAD/BRAI 6 MEDICAL JANET N W/O IMAGING CONTRAST ASS MATERIAL RADEX HIP 55211 [place] BEINEKE 6 MEDICAL UNILATERA IMAGING L WITH ASS PELVIS 2-3 VIEWS CHEMODERV 87985 RESTORATIONIST TOÑITO ALBARADO 6 [facility] FACIAL/TR MEDICAL IGEM/CERV GROUP [facility] MIGRAINE BOTULINUM J0585 RESTORATIONIST TOÑITO TOXIN 6 [facility] TYPE A MEDICAL PER UNIT GROUP OPHTH 39135 [facility] 6 GRE GRE XM&EVAL COMPRE NEW PT 1/> VST COMPREHEN 18385 LAB DEVENDRA LAB DEVENDRA SIVE 6 [facility] METABOL[facility] [place] [address] LAB DEVENDRA LAB DEVENDRA THYROID 6 [facility] STIMULATI HOLDINGS HOLDINGS NG HORMONE TSH BLOOD 52600 LAB DEVENDRA LAB DEVENDRA COUNT 6 [facility] COMPLETE HOLDINGS HOLDINGS AUTO&AUTO DIFRNTL WBC LIPID 53590 LAB DEVENDRA LAB DEVENDRA PANEL 6 [facility] HOLDINGS HOLDINGS PRESSURIZ 03120 MHERAN LAURENT ED/NONPRE 6 [facility] SSURIZED INC INC INHALATIO N TREATMENT INJECTION J1040 MEHRAN SHARMA 5 [facility] DNISOLONE ACETATE 80 MG INJECTION J0696 MEHRAN SHARMA 5 [facility] NE SODIUM PER 250 MG THERAPEUT 46678 MEHRAN SHARMA IC 5 [facility] TIC/DX INJECTION SUBQ/IM CHEMODERV 45977 RESTORATIONIST TOÑITO ATE 5 [facility] FACIAL/TR MEDICAL IGEM/CERV GROUP [facility] MIGRAINE BOTULINUM J0585 RESTORATIONIST TOÑITO TOXIN 5 [facility] TYPE A MEDICAL PER UNIT GROUP NONINVASI 07590 MEHRAN LAURENT VE 5 [facility] EAR/PULSE INC INC OXIMETRY SINGLE DETER INITIAL 64135 [facility] 5 CULAR MAT CARE/DAY CONSULTAN 50 [place] [address] MEHRAN LAURENT TROPONIN 5 [facility] QUANTITAT INC INC [place] BLOOD 93813 MEHRAN LAURENT COUNT 5 [facility] COMPLETE INC INC AUTO&AUTO DIFRNTL WBC OBSERVATI 37058 [facility] ON CARE 5 PHYSICIAN FEDE DISCHARGE S GROUP MANAGEMEN T CREATINE 21785 MEHRAN LAURENT KINASE 5 [facility] TOTAL INC INC HOSPITAL G0378 MEHRAN LAURENT OBSERVATI 5 [facility] ON INC INC SERVICE PER HOUR COLLECTIO 16818 MEHRAN LAURENT N VENOUS 5 [facility] BLOOD INC INC VENIPUNCT URE COMPREHEN 47540 MEHRAN LAURENT SIVE 5 [facility] METABOLIC INC INC PANEL CREATINE 74002 MEHRAN LAURENT KINASE MB 5 [facility] FRACTION INC INC ONLY ECHO 31255 CAROLE MEYER TTC R-T 5 MEDICAL GABRIEL 2D SERV W/WOM-MOD FOUNDATIO E COMPL N SPEC&[place] [address] MEHRAN LAURENT ANGIOGRAP 5 [facility] HY CHEST INC INC W/CONTRAS T/[facility] G0378 MEHRAN LAURENT OBSERVATI 5 [facility] ON INC INC SERVICE PER HOUR COMPREHEN 33174 MEHRAN LAURENT SIVE 5 [facility] METABOLIC INC INC PANEL CREATINE 01896 MEHRAN LAURENT KINASE MB 5 [facility] FRACTION INC INC ONLY LOCM Q9967 MEHRAN LAURENT 300-399 5 [facility] MG/ML INC INC IODINE CONCENTRA TION PER ML COLLECTIO 09116 MEHRAN LAURENT N VENOUS 5 [facility] BLOOD INC INC VENIPUNCT URE FIBRIN 86626 MEHRAN LAURENT DGRADJ 5 [facility] PRODUCTS INC INC D-DIMER QUAL/SEMI TACO THER 27874 MEHRAN LAURENT PROPH/DX 5 [facility] NJX IV INC INC PUSH SINGLE/1S T SBST/DRUG ECG 77729 MEHRAN LAURENT ROUTINE 5 [facility] ECG INC INC W/LEAST 12 LDS TRCG ONLY W/O I&R CREATINE 17726 MEHRAN LAURENT KINASE 5 [facility] TOTAL INC INC THERAPEUT 03733 MEHRAN LAURENT IC 5 [facility] INJECTION INC INC IV PUSH EACH NEW DRUG NONINVASI 09698 MEHRAN LAURENT VE 5 [facility] EAR/PULSE INC INC OXIMETRY SINGLE DETER HEMOGLOBI 04992 MEHRAN LAURENT N 5 [facility] GLYCOSYLA INC INC KARLA A1C BLOOD 57295 MEHRAN HEON COUNT 5 [facility] COMPLETE INC INC AUTO&AUTO DIFRNTL WBC ECG 83640 MEHRAN TORRES JR ROUTINE 5 [facility] W/LEAST P 12 LDS I&R ONLY URNLS DIP 73547 MEHRAN LAURENT 5 [facility] STICK/TAB INC INC LET [place] [address] MEHRAN MEHRAN TROPONIN 5 [facility] QUANTITAT INC INC [place] INITIAL 92549 [facility] JAROD OBSERVATI 5 PHYSICIAN FEDE ON S GROUP CARE/DAY 50 MINUTES URINE 89576 MEHRAN LAURENT 5 [facility] TEST INC INC VISUAL COLOR CMPRSN METHS RADIOLOGI 93900 MEHRAN LAURENT C 5 [facility] EXAMINATI INC INC ON CHEST SINGLE VIEW FRONTAL IM ADM 19685 JUDD PARKS JOCELIN PRQ ID 5 HEALTH SUBQ/IM MEDICAL NJXS 1 GROUP VACCINE IIV3 VACC 46788 JUDD PARKS JOCELIN 5 HEALTH PRESERVAT MEDICAL [place] FREE GROUP 0.5 ML DOSAGE IM USE THERAPEUT 75327 MEHRAN MARTIN IC [address] [facility] TIC/DX INJECTION SUBQ/IM INJECTION J[address] 5 [facility] DNISOLONE ACETATE 40 MG RADEX 74550 MEHRAN LAURENT SPINE 5 [facility] LUMBOSACR INC INC AL MINIMUM 4 VIEWS CHEMODERV 82316 RESTORATIONIST TOÑITO ATE 5 [facility] FACIAL/TR MEDICAL IGEM/CERV GROUP [facility] MIGRAINE BOTULINUM J0585 RESTORATIONIST TOÑITO TOXIN 5 [facility] TYPE A MEDICAL PER UNIT GROUP INJECTION J1885 JUDD RODRIGUES 5 [facility] TROMETHAM INE PER 15 MG CULTURE 39288 LAB DEVENDRA LAB DEVENDRA BACTERIAL 5 [employer] HOLDINGS QUANTTATI VE COLONY COUNT URINE INJECTION J3301 JUDD RODRIGUES 5 [facility] TRIAMCINO MEDICAL LONE GROUP ACETONIDE NOS 10 MG SUSCEPTIB 87937 LAB DEVENDRA LAB DEVENDRA LTY STDY 5 [facility] ANTIMICRB HOLDINGS HOLDINGS IAL MICRO/AGA R DILUTJ CULTURE 73224 LAB DEVENDRA LAB DEVENDRA BACTERIAL 5 [facility] HOLDINGS HOLDINGS QUANTTATI VE COLONY COUNT URINE CULTURE 21324 LAB DEVENDRA LAB DEVENDRA BCT 5 [facility] ISOL&PRSM HOLDINGS HOLDINGS PTV ID ISOLATE EA URINE CUL BACT 93603 LAB DEVENDRA LAB DEVENDRA AEROBIC 5 [facility] ADDL HOLDINGS HOLDINGS METHS DEFINITIV E EA ISOL INJECTION J1885 JUDD PARKS JOCELIN 5 [facility] KETOROLAC MEDICAL GROUP TROMETHAM INE PER 15 MG MRI 07293 [place] [facility] SPINAL 5 MEDICAL JAN[facility] CANAL IMAGING LUMBAR ASS W/O CONTRAST MATERIAL 3D 92633 [place] [facility] RENDERING 5 MEDICAL JANET W/INTERP IMAGING & ASS POSTPROCE SS SUPERVISI ON OPHTH 62306 ND [facility] 5 MEDICAL CLA XM&EVAL SERV INTERMEDI FOUNDATIO ATE ESTAB N PT BASIC 39954 [facility] METABOLIC 5 Y Y PANEL [facility] CALCIUM TOTAL THROMBOPL 05396 [facility] ASTIN 5 Y Y TIME [facility] PARTIAL PLASMA/WH OLE BLOOD RADIOLOGI 21511 [facility] 5 [facility] ON CHEST SINGLE VIEW FRONTAL THER 56303 [facility] PROPH/DX 5 Y Y NJX [facility] PUSH SINGLE/1S T SBST/DRUG PROTHROMB 81767 [facility] IN TIME 5 Y Y [facility] GROUND A0425 MERCURY MERCURY MILEAGE 5 AMBULANCE AMBULANCE PER SERV ACTIVITY SPECIALIST SERV ACTIVITY [place] [address] [facility] TROPONIN 5 RESTORATIONIST RESTORATIONIST QUANTITAT HOSP HOSP [place] ECG 44913 CAROLE FLORENTIN SUSAN ROUTINE 5 MEDICAL ECG SERV W/LEAST FOUNDATIO 12 LDS N I&R ONLY BLOOD 80253 [facility] 5 Y Y COMPLETE [facility] AUTOMATED ECG 48563 [facility] ROUTINE 5 RESTORATIONIST RESTORATIONIST ECG HOSP HOSP W/LEAST 12 LDS TRCG ONLY W/O I&R INJECTION J2550 [facility] 5 Y Y [facility] INE HCL UP TO 50 MG COLLECTIO 92121 [facility] N VENOUS 5 RESTORATIONIST RESTORATIONIST BLOOD HOSP HOSP VENIPUNCT URE COMPREHEN 42730 [facility] SIVE 5 RESTORATIONIST [facility]IST [place] [address] [facility] AMYLASE 5 RESTORATIONIST REST[facility]ATIONIST HOSP HOSP NONINVASI 40986 [facility] VE 5 RESTORATIONIST RESTORATIONIST EAR/PULSE HOSP HOSP OXIMETRY MULTIPLE DETER INJECTION J2550 [facility] 5 RESTORATIONIST RESTORATIONIST PROMETHAZ HOSP HOSP INE HCL UP TO [address] [place] [address] [facility] LIPASE 5 RESTORATIONIST RESTORATIONIST HOSP HOSP FIBRIN 22648 [facility] DGRADJ 5 RESTORATIONIST RESTORATIONIST PRODUCTS HOSP HOSP D-DIMER QUANTITAT [place] PROTHROMB 95075 [facility] IN TIME 5 RESTORATIONIST RESTORATIONIST HOSP HOSP ECG 38228 [facility] ROUTINE 5 RESTORATIONIST RESTORATIONIST ECG HOSP HOSP W/LEAST 12 LDS TRCG ONLY W/O [place] [address] [facility] INFUSION 5 RESTORATIONIST RESTORATIONIST THERAPY/P HOSP HOSP ROPHYLAXI S /DX 1ST TO 1 HR THERAPEUT 82335 [facility] IC 5 RESTORATIONIST RESTORATIONIST INJECTION HOSP HOSP IV PUSH EACH NEW DRUG NATRIURET 78305 [facility] IC 5 [facility]OR[facility]IST [facility]IST [place] [address] [facility] TROPONIN 5 RESTORATIONIST RESTORATIONIST QUANTITAT HOSP HOSP [place] BLOOD 21380 [facility] COUNT 5 RESTORATIONIST RESTORATIONIST COMPLETE HOSP HOSP AUTO&AUTO DIFRNTL WBC GROUND A0425 [facility] MILEAGE 5 AMBULANCE AMBULANCE PER SERVICE SERVICE STATUTE MILE INJECTION J2270 [facility] MORPHINE 5 RESTORATIONIST RESTORATIONIST SULFATE HOSP HOSP UP TO 10 [place] NFS 71977 [facility] THERAPY 5 RESTORATIONIST RESTORATIONIST PROPHYLAX HOSP HOSP IS/DX CONCURREN T NFS CRITICAL 25713 [facility] 5 EMERGENCY ILL/INJUR PHYS PSC ED PATIENT INIT 30-74 [place] [address] [facility] INFUSION 5 RESTORATIONIST RESTORATIONIST THERAPY HOSP HOSP PROPHYLAX IS/DX EA HOUR THER 32531 [facility] PROPH/DX 5 RESTORATIONIST RESTORATIONIST NJX EA HOSP HOSP SEQL IV PUSH SBST/DRUG FAC THROMBOPL 09550 [facility] ASTIN 5 RESTORATIONIST RESTORATIONIST TIME HOSP HOSP PARTIAL PLASMA/WH OLE BLOOD AMB A0427 [facility] SERVICE 5 AMBULANCE AMBULANCE ALS SERVICE SERVICE EMERGENCY TRANSPORT LEVEL 1 RADIOLOGI 39114 [facility] BRIGHT C 5 RADIOLOGY III JAM EXAMINATI ASSOC ON CHEST SINGLE VIEW FRONTAL INJECTION J1885 JUDD PARKS JOCELIN 5 HEALTH KET[facility]OLAC MEDICAL GROUP TROMETHAM INE PER 15 MG THERAPEUT 16816 JUDD PARKS JOCELIN IC 5 HEALTH PROPHYLAC MEDICAL TIC/DX GROUP INJECTION SUBQ/IM OPHTH 48378 CAROLE RODRIGUEZ MEDICAL 5 MEDICAL MEGAN XM&EVAL SERV COMPRHNSV FOUNDATIO ESTAB PT N 1/> DETERMINA 53571 CAROLE MICHAEL TION 5 MEDICAL MEGAN REFRACTIV SERV E STATE FOUNDATIO N CHEMODERV 80498 RESTORATIONIST TOÑITO ATE 5 [facility] FACIAL/TR MEDICAL IGEM/CERV GROUP [facility] MIGRAINE DIAGNOSTI G0206 [place] [facility] C 5 MEDICAL JANET MAMMOGRAP IMAGING HY INCL ASS CAD [place]; [place] [address] [facility], PICKLESIM SURG 5 [facility] PATHOLOGY GROSS&[place] [address] MEHRAN MEHRAN INFUSION 5 [facility] THERAPY INC INC PROP[place] [address] MEHRAN MEHRAN INFUSION 5 [facility] THERAPY/P INC INC ROPHYLAXI S /DX 1ST TO 1 HR EGD 82925 [place] TE[place] ANT TRANSORAL 5 MEDICAL BIOPSY SERV SINGLE/MU FOUNDATIO LTIPLE N CUL 73587 MEHRAN LAURENT PRSMPTV 5 [facility] PTHGNC INC INC ORGANISMS SCR DNS CHART SPECIAL 29030 [facility], PICKLESIM STAIN 5 LLC ER JR YEE GROUP 1 MICROORGA NISMS I&R 25 86103 MEHRAN LAURENT HYDROXY 5 [facility] INCLUDES INC INC FRACTIONS IF PERFORMED BLOOD 40718 MEHRAN LAURENT COUNT 5 [facility] COMPLETE INC INC AUTO&AUTO DIFRNTL WBC COLLECTIO 83070 MEHRAN LAURENT N VENOUS 5 [facility] BLOOD INC INC VENIPUNCT URE COMPREHEN 39383 MEHRAN LAURENT SIVE 5 [facility] [place] [address] MEHRAN LAURENT THYROID 5 [facility] STIMULATI INC INC NG HORMONE TSH CHEMODERV 35102 RESTORATIONIST TOÑITO ATE 5 [facility] FACIAL/TR MEDICAL IGEM/CERV GROUP [facility] MIGRAINE COMPREHEN 86608 MEHRAN LAURENT SIVE 4 [facility] METABOLIC INC INC PANEL CREATINE 09332 MEHRAN LAURENT KINASE MB 4 [facility] FRACTION INC INC ONLY ECG 09376 MEHRAN DENT ROUTINE 4 [facility] W/LEAST P 12 LDS [place] [address] MEHRAN LAURENT TROPONIN 4 [facility] QUANTITAT INC INC [place] URNLS DIP 50371 MEHRAN LAURENT 4 [facility] STICK/TAB INC INC LET REAGENT AUTO MICROSCOP Y BLOOD 49432 MEHRAN LAURENT COUNT 4 [facility] COMPLETE INC INC AUTO&AUTO DIFRNTL WBC RADIOLOGI 67597 MEHRAN LAURENT C 4 [facility] EXAMINATI INC INC ON CHEST SINGLE VIEW FRONTAL CREATINE 32476 MEHRAN LAURENT KINASE 4 [facility] TOTAL INC INC ECG 93027 MEHRAN LAURENT ROUTINE 4 [facility] ECG INC INC W/LEAST 12 LDS TRCG ONLY W/O I&R DIAGNOSTI G0206 MEHRAN LAURENT C 4 [facility] MAMMOGRAP INC INC HY INCL CAD WHEN PERF; UNI US BREAST 29500 MEHRAN LAURENT REAL 4 [facility] TIME INC INC W/IMAGE DOCUMENTA TION SWALLOWIN 64818 AMARILIS Veloz FUNCJ 4 RADIOLOGY W/CINERAD ASSOC IOGRAPY/V IDRADIOG SCREENING G0202 MEHRAN LAURENT 4 [facility] MAMMOGRAP INC INC HY JOSELIN INCL CAD WHEN PERFORMD COMPUTER- 78179 MEHRAN LAURENT AIDED 4 [facility] DETECTION INC INC SCREENING MAMMOGRAP HY TECHNETIU A9541 MEHRAN Amor TC-99M 4 [facility] SULFUR INC INC COLLOID DX UP TO 20 MCI GASTRIC 84445 MEHRAN LAURENT EMPTYING 4 [facility] IMAGING INC INC STUDY LARYNGOSC 35667 [facility] VJ OPY 4 PHYSICIAN FRA FLEXIBLE S GROUP DIAGNOSTI C INJECTION J1030 RESTORATIONIST TOÑITO 4 NEUROLOGY [facility] METHYLPRE CENTER DNISOLONE [place] ACETATE 40 MG INJECTION 37682 RESTORATIONIST TOÑITO 4 NEUROLOGY [facility] ANESTHETI CENTER C AGENT [place] [facility] NRV INJECTION 54548 RESTORATIONIST TOÑITO 4 NEUROLOGY MA[facility] SINGLE/ML CENTER T TRIGGER [place] POINT 3/> MUSCLES SPECIAL 57162 [facility] STAIN 4 [facility] GROUP 1 [place]CROOR[place] NIS[place] [address] MEHRAN LAURENT HPYLORI 4 [facility] [place] [address] [facility], GARCIA SURG 4 [facility] PATHOLOGY GROSS&FEDE ROSCOPIC EXAM EGD 37998 [facility] SUJATHA SHAH TRANSORAL 4 PHYSICIAN MILY BIOPSY S GROUP SINGLE/MU LTIPLE ARTHROCEN 43649 RESTORATIONIST TOÑITO TESIS 4 NEUROLOGY MA[facility] ASPIR&/IN CENTER J MAJOR [place] JT/BURSA W/O US INJECTION J1100 RESTORATIONIST TOÑITO 4 NEUROLOGY [facility] DEXAMETHO CENTER SONE [place] SODIUM PHOSPHATE 1 [place] [address] MEHRAN LAURENT TRANSVAGI 4 [facility] NAL INC INC 25 87958 LABORATOR LABORATOR HYDROXY 4 Y Y INCLUDES CORPORATI CORPORATI FRACTIONS ON [place] [address] LABORATOR LABORATOR FERRITIN 4 Y Y CORPORATI [place] [address] LABORATOR LABORATOR IRON 4 Y Y CORPORATI CORPORATI ON OF AM ON OF AM CYTP 84139 LABORATOR LABORATOR CERV/VAG 4 Y DEVENDRA OF Y DEVENDRA OF AUTO THIN [facility] LAYER H H PREP MNL SCREEN GENERAL 12674 LABORATOR LABORATOR HEALTH 4 Y Y PANEL CORPORATI CORPORATI ON OF AM ON OF AM LIPID 41835 LABORATOR LABORATOR PANEL 4 Y Y CORPORATI CORPORATI ON OF AM ON OF AM THERAPEUT 89488 RESTORATIONIST CALLUM IC [facility] PROPHY[facility]AC MEDICAL TIC/DX GROUP INJECTION SUBQ/IM INJECTION J3301 RESTORATIONIST CALLUM [facility] TRIAMCINO MEDICAL LONE GROUP ACETONIDE NOS 10 MG TENS E0720 EMPI INC EMPI INC DEVICE 4 TWO LEAD LOCALIZED STIMULATI ON TENS E0730 EMPI INC EMPI INC DEVICE 4 4/MORE LEADS MULTI NERVE STIMULATI ON CULTURE 63236 LAB DEVENDRA LAB DEVENDRA BACTERIAL 4 MNAISH MANISH HOLDINGS HOLDINGS QUANTTATI VE COLONY COUNT URINE HEMOGLOBI 61660 LAB DEV[facility] LAB DEVENDRA N 4 [facility] GLYCOSYLA HOLDINGS [place] [address] LAB DEVENDRA LAB DEVENDRA TRIIODOTH 4 MANISH MANISH YRONINE HOLDINGS HOLDINGS T3 FREE INJECTION J3301 CALLUM CALLUM [address] [facility] TRIAMCINO LONE ACETONIDE NOS 10 MG 25 17583 LAB DEVENDRA LAB DEVENDRA HYDROXY 4 MANISH MANISH INCLUDES HOLDINGS HOLDINGS FRACTIONS IF PERFORMED CYANOCOBA 03107 LAB DEVENDRA LAB DEVENDRA DAVID 4 MANISH MANISH VITAMIN HOLDINGS HOLDINGS B-12 THERAPEUT 79069 CALLUM CALLUM IC [address] [facility] PROPHYLAC TIC/DX INJECTION SUBQ/[place] [address] LAB DEVENDRA LAB DEVENDRA THYROID 4 MANISH MANISH STIMULATI HOLDINGS [place] [address] LAB DEVENDRA LAB DEVENDRA FREE 4 [facility] [facility] [place] [address] LAB DEVENDRA LAB DEVENDRA IRON 4 [facility] HOLDINGS HOLDINGS INJ J0702 FAYE MCKINNEY BETAMETHA 4 MAX MAX SONE ACETATE & PHOSPHATE 3 MG PHYSICAL 26247 [facility] THERAPY 4 RESTORATIONIST REST[facility]ATIONIST EVALUATIO HOSP HOSP N TENS E0730 EMPI INC EMPI INC DEVICE 4 4/MORE LEADS MULTI NERVE STIMULATI ON MANUAL 83690 CROSSFIEL CROSSFIEL THERAPY 4 D KOLBY D KOLBY TQS 1/> REGIONS EACH 15 MINUTES THERAPEUT 97510 CROSSFIEL CROSSFIEL IC PX 1/> 4 D KOLBY D KOLBY AREAS EACH 15 MIN EXERCISES THERAPEUT 36774 CROSSFIEL CROSSFIEL IC PX 1/> 4 D KOLBY D KOLBY AREAS EACH 15 MIN EXERCISES MANUAL 06255 CROSSFIEL CROSSFIEL THERAPY 4 D KOLBY D KOLBY TQS 1/> REGIONS EACH 15 MINUTES MANUAL 96104 CROSSFIEL CROSSFIEL THERAPY 4 D KOLBY D KOLBY TQS 1/> REGIONS EACH 15 MINUTES THERAPEUT 49807 CROSSFIEL CROSSFIEL IC PX 1/> 4 D KOLBY D KOLBY AREAS EACH 15 MIN EXERCISES MANUAL 90581 CROSSFIEL CROSSFIEL THERAPY 4 D KOLBY D KOLBY TQS 1/> REGIONS EACH 15 MINUTES MANUAL 27736 CROSSFIEL CROSSFIEL THERAPY 4 D KOLBY D KOLBY TQS 1/> REGIONS EACH 15 MINUTES MANUAL 01774 CROSSFIEL CROSSFIEL THERAPY 4 D KOLBY D KOLBY TQS 1/> REGIONS EACH 15 MINUTES MANUAL 77428 CROSSFIEL CROSSFIEL THERAPY 4 D KOLBY D KOLBY TQS 1/> REGIONS EACH 15 MINUTES PHYSICAL 09826 PROFESSIO CROSSFIEL THERAPY 4 NAL REHAB D KOLBY EVALUATIO ASSOC N PSC DRUG SCR G0434 MARII HAM MARII HAM NOT 4 CHROMATOG RAPHIC; ANY NUMBER PT ENC MRI 67932 [facility] LAURENT SPINAL 4 [facility] CANAL INC INC LUMBAR W/O CONTRAST MATERIAL MRI 79932 MEHRAN LAURENT SPINAL 4 [facility] CANAL INC INC CERVICAL W/O CONTRAST MATRL 3D 03163 MEHRAN LAURENT RENDERING 4 [facility] W/INTERP INC INC & POSTPROCE SS SUPERVISI ON METANEPHR 06449 MEHRAN LAURENT PHIL 4 [place] [address] MEHRAN LAURENT HYDROXYIN 4 [facility] DOLACETIC [place] ACID 5-[place] [address] MEHRAN LAURENT VANILLYLM 4 [facility] [place] [address] MEHRAN LAURENT ALDOSTERO 4 [place] [address] MEHRAN LAURENT TRANSVAGI 4 [facility] NAL INC INC INJ J0702 FAYE MCKINNEY BETAMETHA 4 MAX MAX SONE ACETATE & PHOSPHATE 3 MG THERAPEUT 30652 CALLUM NOLEN IC 4 WHI WHI PROPHYLAC TIC/DX INJECTION SUBQ/IM INJECTION J3301 CALLUM CALLUM 4 WHI WHI TRIAMCINO LONE ACETONIDE NOS 10 MG COLLECTIO 46334 [facility] N VENOUS 3 RESTORATIONIST [facility] BLOOD HOSP HOSP VENIPUNCT URE COMPREHEN 14688 [facility] SIVE 3 [facility]IST [place] [address] [facility] AMYLASE 3 [facility] [place] [address] [facility] LIPASE 3 [facility] HOSP PROTHROMB 08331 [facility] IN TIME 3 [facility] [place] [facility] [place]ARD ECG 53471 [facility] ROUTINE 3 RESTORATIONIST RESTORATIONIST ECG HOSP HOSP W/LEAST 12 LDS TRCG ONLY W/O I&R THROMBOPL 79614 [facility] ASTIN 3 [facility] [place] MR TIME HOSP REG BOARD PARTIAL PLASMA/WH OLE BLOOD RADIOLOGI 58379 [facility] C 3 RESTORATIONIST RESTORATIONIST EXAMINATI HOSP HOSP ON CHEST SINGLE VIEW FRONTAL NATRIURET 90561 [facility] IC 3 RESTORATIONIST RESTORATION[place] [address] [facility] TROPONIN 3 RESTORATIONIST REST[facility]ATIONIST QUANTITAT HOSP HOSP [place] BLOOD 94751 [facility] COUNT 3 RESTORATIONIST REST[facility]ATIONIST COMPLETE HOSP HOSP AUTO&[place] [address] [facility] ANGIOGRAP 3 RADIOLOGY RADIOLOGY HY CHEST ASSOC ASSOC W/CONTRAS T/NONCONT [facility]ST GROUND A0425 [facility] [place] EL[facility] PER CO EMS CO EMS STATUTE MILE [facility] A0427 [facility] 3 MIKHAIL ELIZONDO ALS CO EMS CO EMS EMERGENCY TRANSPORT LEVEL 1 Encounters Encounter Start End Date Code Location Performer Type Date OFFICE 02606 [facility] OUTPATIEN 7 7 [facility] T VISIT INC 10 MINUTES [facility] MEHRAN - 7 7 [facility] OUTPATIEN INC T OFFICE 64351 LUDMILA LUDMILA OUTPATIEN 7 7 T VISIT 15 MINUTES [facility] MEHRAN - 7 7 [facility] OUTPATIEN INC [facility] MEHRAN - 7 7 [facility] OUTPATIEN INC T OFFICE 92423 GRACE RODRIGUEZ OUTPATIEN 7 7 ORTHOPEDI T NEW 45 C MINUTES ASSOCIAT OFFICE 00754 ALEX JOHNSON OUTPATIEN 7 7 T VISIT 15 MINUTES OFFICE 59746 RESTORATIONIST CLEVE OUTPATIEN 7 7 HEALTH T VISIT MEDICAL 25 GROUP MINUTES [facility] - 7 7 N OUTPATIEN COMMUNTIY T HOSPITA OFFICE 57900 [facility] CONSULTAT 7 7 N ION NEUROLOGY NEW/ESTAB PATIENT 60 MIN OFFICE 57303 RESTORATIONIST CLEVE OUTPATIEN 7 7 HEALTH T VISIT MEDICAL 25 GROUP MINUTES [facility] MEHRAN - 7 7 [facility] OUTPATIEN INC T OFFICE 30910 MEHRAN OUTPATIEN 7 7 [facility] T VISIT INC 10 MINUTES [facility]OSPITAL MEHR[facility] - 7 7 [facility] OUTPATIEN INC T OFFICE 66802 MEHRAN OUTPATIEN 7 7 [facility] T VISIT INC 10 MINUTES OFFICE 86036 [facility] SUJATHA OUTPATIEN 7 7 PHYSICIAN T VISIT S GROUP 15 MINUTES OFFICE 40928 CAROLE MOLINAE OUTPATIEN 7 7 MEDICAL HERRERA T VISIT SERV 25 FOUNDATIO MINUTES [facility] MEHRAN - 7 7 [facility] OUTPATIEN INC T [facility] EMHRAN - 7 7 [facility] OUTPATIEN INC T OFFICE 42631 [facility] SUJATHA SHAH OUTPATIEN 7 7 PHYSICIAN T VISIT S GROUP 15 MINUTES [facility]OSPITAL [facility] - 7 7 [facility] OUTPATIEN INC T OFFICE 50871 PAVAN MUELLER OUTMICHAEL 7 7 MD ERVIN, T VISIT PSC 10 MINUTES [facility]OSPITAL [facility] - 7 7 [facility] OUTPATIEN INC T [facility]PITAL [facility] - 7 7 [facility] OUTPATIEN INC T EMERGENCY 76003 MARAL GARCIA DEPT 7 7 PHYSICIAN VISIT S, [facility] HIGH SEVERITY& THREAT FUNJ EMERGENCY 66817 MEHRAN 7 7 [facility] DEPARTMEN INC T VISIT HIGH/URGE NT SEVERITY [facility]OSPITAL [facility] - 7 7 [facility] OUTPATIEN INC T OFFICE 62254 [facility] ANDREW TRIPLETT 7 7 PHYSICIAN OGHADDAM T VISIT S GROUP 15 MINUTES HOSPITAL MEHRAN - 6 6 [facility] OUTPATIEN INC T OFFICE 28658 PAVAN MUELLER OUTPATIEN 6 6 MD ERVIN, T VISIT PSC 10 MINUTES HOSPITAL MEHRAN - 6 6 [facility] OUTPATIEN INC T OFFICE 88673 CAROLE TOLENTINO CONSULTAT 6 6 MEDICAL ION SERV NEW/ESTAB FOUNDATIO PATIENT N 30 MIN [facility]OSPITAL ME[facility] - 6 6 [facility] OUTPATIEN INC [facility] ME[facility] - 6 6 [facility] OUTPATIEN INC T OFFICE 87150 [facility] APPLE OUTPATIEN 6 6 HEALTH T VISIT MEDICAL 15 GROUP MINUTES OFFICE 16214 MEHRAN OUTPATIEN 6 6 [facility] T VISIT INC 10 MINUTES HOSPITAL MEHRAN - 6 6 [facility] OUTPATIEN INC T OFFICE 17342 PAVAN PINO OUTPATIEN 6 6 MD ERVIN, T VISIT PSC 15 MINUTES HOSPITAL ME[facility] - 6 6 [facility] OUTPATIEN INC T OFFICE 17780 [facility] SAMIA KIM OUTPATIEN 6 6 NURSE T VISIT PRACTITIO 15 NER GR MINUTES EMERGENCY 70207 [facility]AN 6 6 [facility] DEPARTMEN INC T VISIT LOW/MODER SEVERITY [facility]OSPITAL [facility] - 6 6 [facility] OUTPATIEN INC [facility] [place] - 6 6 N OUTPATIEN COMMUNTIY T [facility] EMHRAN - 6 6 [facility] OUTPATIEN INC T OFFICE 41168 [facility] ANDREW OUTPATIEN 6 6 PHYSICIAN TAWANNA T VISIT S GROUP 15 MINUTES OFFICE 68640 MEHRAN OUTPATIEN 6 6 [facility] T VISIT INC 10 MINUTES OFFICE 87451 [facility] SAMIA KIM OUTPATIEN 6 6 NURSE T NEW 30 PRACTITIO MINUTES NER GR OFFICE 75294 [facility]ORATIONIST MORRIN OUTPATIEN 6 6 HEALTH T VISIT MEDICAL 15 GROUP MINUTES OFFICE 28989 MEHRAN OUTPATIEN 6 6 [facility] T VISIT INC 10 MINUTES [facility]OSPITAL MEHRAN - 6 6 [facility] OUTPATIEN INC T OFFICE 81537 PAVAN MONTANO OUTPATIEN 6 6 MD ERVIN, T VISIT PSC 15 MINUTES HOSPITAL MEHRAN - 6 6 [facility] OUTPATIEN INC T OFFICE 96925 JOSE GO TRA OUTPATIEN 6 6 T VISIT ORTHOPAED 15 ICS PSC MINUTES OFFICE 02537 RESTORATIONIST MORRIN OUTPATIEN 6 6 HEALTH T VISIT MEDICAL 15 GROUP MINUTES HOSPITAL MEHRAN - 6 6 [facility] OUTPATIEN INC T OFFICE 40001 JOSE GO OUTPATIEN 6 6 T VISIT ORTHOPAED 15 ICS PSC MINUTES OFFICE 14544 MEHRAN OUTPATIEN 6 6 [facility] T VISIT INC 10 MINUTES HOSPITAL MEHRAN - 6 6 [facility] OUTPATIEN INC T OFFICE 09656 PAVAN MONTANO OUTPATIEN 6 6 MD ERVIN, T VISIT PSC 15 MINUTES OFFICE 09871 MEHRAN DE LA O OUTPATIEN 6 6 [facility] T VISIT HOSPITAL 15 MINUTES OFFICE 51771 CAROLE ESCAMILLA OUTPATIEN 6 6 MEDICAL PAD T VISIT SERV 25 FOUNDATIO MINUTES HOSPITAL MEHRAN - 6 6 [facility] OUTPATIEN INC T OFFICE 57871 PAVAN MONTANO OUTPATIEN 6 6 MD ERVIN, T VISIT PSC 15 MINUTES OFFICE 39348 SHU DELA CRUZ OUTPATIEN 6 6 Medicine HOLLY T NEW 45 MINUTES OFFICE 40188 ME[facility]AN OUTPATIEN 6 6 [facility] T VISIT INC 10 MINUTES HOSPITAL TENRIISM - 6 6 [facility]PATI[facility] & [facility] OFFICE 93790 MEHRAN DE LA O OUTPATIEN 6 6 [facility] T VISIT HOSPITAL 15 MINUTES OFFICE 92652 [facility] LILIA OUTPATIEN 6 6 HEALTH T VISIT MEDICAL 15 GROUP MINUTES OFFICE 84711 [facility]ATIONIST LIZETTRIN OUTPATIEN 6 6 HEALTH T VISIT MEDICAL 25 GROUP MINUTES OFFICE 86127 CAROLE JOHNSON OUTPATIEN 6 6 MEDICAL CLA T VISIT SERV 15 FOUNDATIO MINUTES N OFFICE 89590 [facility] MYRIAM- OUTPATIEN 6 6 PHYSICIAN TAWANNA Jon NEW 45 S GROUP JAL MINUTES [facility] MEHRAN - 6 6 [facility] OUTPATIEN INC T OFFICE 98931 PAVAN PINO [facility] OUTPATIEN 6 6 MD ERVIN, T NEW 30 PSC MINUTES [facility] MEHRAN - 6 6 [facility] OUTPATIEN INC T OFFICE 62382 MEHRAN SHARMA OUTPATIEN 6 6 [facility] 15 MINUTES OFFICE 89899 [facility] LILIA OUTPATIEN 6 6 HEALTH YANY T VISIT MEDICAL 25 GROUP MINUTES HOSPITAL MEHRAN - 6 6 [facility] OUTPATIEN INC T OFFICE 24707 CAROLE RODRIGUEZ OUTPATIEN 6 6 MEDICAL MEGAN T VISIT SERV 15 FOUNDATIO MINUTES N OFFICE 63315 [facility]ATIONIST KENDRICK DAHL OUTPATIEN 6 6 HEALTH T VISIT MEDICAL 25 GROUP MINUTES OFFICE [address] OUTPATIEN 6 6 [facility] 15 MINUTES OFFICE [address] OUTPATIEN 6 6 [facility] 15 MINUTES HOSPITAL MEHRAN - 6 6 [facility] OUTPATIEN INC T EMERGENCY 26316 MARAL GARCIA 6 6 [facility] T VISIT HIGH/URGE NT SEVERITY OFFICE 51162 MEHRAN SHARMA OUTPATIEN 5 5 [facility] 15 MINUTES EMERGENCY 32596 MARAL GRANT DEPT 5 5 PHYSICIAN U KOLBY VISIT [facility] HIGH SEVERITY& THREAT [facility] MEHRAN - 5 5 [facility] OUTPATIEN INC T OFFICE 80039 [facility]ATIONIST LIZETTRIN OUTPATIEN 5 5 HEALTH YANY T VISIT MEDICAL 15 GROUP MINUTES OFFICE 68926 GASTROENT CASE JUS CONSULTAT 5 5 EROLOGY ION AND NEW/ESTAB HEPATOL PATIENT 60 MIN OFFICE [address] OUTPATIEN 5 5 [facility] 15 MINUTES OFFICE 48841 [facility] SUJATHA OUTPATIEN 5 5 PHYSICIAN MILY T VISIT S GROUP 15 MINUTES OFFICE 99781 RESTORATIONISTDanay RODRIGUES OUTPATIEN 5 5 HEALTH YANY T VISIT MEDICAL 25 GROUP MINUTES [facility] MEHRAN - 5 5 [facility] OUTPATIEN INC T OFFICE 95583 CAROLE RODRIGUEZ OUTPATIEN 5 5 MEDICAL MEGAN T VISIT SERV 10 FOUNDATIO MINUTES N OFFICE 19603 [facility] L[place]IA OUTPATIEN 5 5 HEALTH YANY T VISIT MEDICAL 15 GROUP MINUTES OFFICE 39220 RESTORATIONISTDanay MONREAL OUTPATIEN 5 5 HEALTH T VISIT MEDICAL 25 GROUP MINUTES OFFICE 72104 CAROLE JOHNSON OUTPATIEN 5 5 MEDICAL CLA T VISIT SERV 10 FOUNDATIO MINUTES N OFFICE 46315 [facility] TAYLOR CONSULTAT 5 5 HEALTH OFE ION MEDICAL NEW/ESTAB GROUP PATIENT 40 MIN OFFICE 30476 [place] TEAGAN ANT OUTPATIEN 5 5 MEDICAL T VISIT SERV 25 FOUNDATIO MINUTES N OFFICE 52326 [facility] APPLE OUTPATIEN 5 5 HEALTH ANT T VISIT MEDICAL 15 GROUP MINUTES HOSPITAL MERHAN - 5 5 [facility] OUTPATIEN INC T EMERGENCY 98850 UNIVERSIT DEPT 5 5 Y VISIT HOSPITAL HIGH SEVERITY& THREAT FUNCJ OFFICE 94902 CAROLE HANKS CONSULTAT 5 5 MEDICAL MAX ION SERV NEW/ESTAB FOUNDATIO PATIENT N 60 MIN HOSPITAL UNIVERSIT - 5 5 Y OUTPATIEN HOSPITAL T EMERGENCY 95145 CAROLE CINDY 5 5 MEDICAL SET DEPARTMEN SERV T VISIT FOUNDATIO HIGH/URGE N NT SEVERITY HOSPITAL CENTRAL - 5 5 [facility] OUTPATIEN HOSP T EMERGENCY 27558 [facility]TRAL DEPT 5 5 [facility]IST VISIT HOSP HIGH SEVERITY& THREAT FUNJ OFFICE 04896 JUDD MONREAL OUTPATIEN 5 5 HEALTH T VISIT MEDICAL 15 GROUP MINUTES OFFICE 66296 RESTORATIONIST TOÑITO OUTPATIEN 5 5 HEALTH MAURICE T VISIT MEDICAL 15 GROUP MINUTES HOSPITAL MEHRAN - 5 5 [facility] OUTPATIEN INC [facility] MEHRAN - 5 5 [facility] OUTPATIEN INC T OFFICE 91238 [place] TEAGAN ANT OUTPATIEN 5 5 MEDICAL T VISIT SERV 25 FOUNDATIO MINUTES [facility] MEHRAN - 5 5 [facility] OUTPATIEN INC T OFFICE 78470 [place] TEAGAN ANT OUTPATIEN 5 5 MEDICAL T NEW 45 SERV MINUTES FOUNDATIO N OFFICE 22931 [facility] TOÑITO OUTPATIEN 5 5 HEALTH MAURICE T VISIT MEDICAL 15 GROUP MINUTES OFFICE 43546 [facility] MONGIARDO OUTPATIEN 4 4 PHYSICIAN FRA T VISIT S GROUP 15 MINUTES EMERGENCY 55998 MEHRAN 4 4 [facility] DEPARTMEN INC T VISIT MODERATE SEVERITY HOSPITAL MEHRAN - 4 4 [facility] OUTPATIEN INC T OFFICE 24394 [facility] ALLRAN JR OUTPATIEN 4 4 PHYSICIAN MILY T VISIT S GROUP 15 MINUTES HOSPITAL MEHRAN - 4 4 [facility] OUTPATIEN INC T OFFICE 07661 [facility] TOÑITO OUTPATIEN 4 4 NEUROLOGY MAURICE T VISIT CENTER [address] [facility] [facility] H[facility]PITAL CENTRAL - 4 4 [facility] OUTPATIEN HOSP [facility] MEHRAN - 4 4 [facility] OUTPATIEN INC T OFFICE 88257 SIMON CHIU OUTPATIEN 4 4 ANT T VISIT CARDIOLOG 15 Y AT [facility] MEHRAN - 4 4 [facility] OUTPATIEN INC T OFFICE 41047 FAYE MCKINNEY OUTPATIEN 4 4 MAX MAX T VISIT 15 MINUTES OFFICE 75352 [facility] VJ OUTPATIEN 4 4 PHYSICIAN FRA T NEW 30 S GROUP MINUTES OFFICE 17986 [facility] SUJATHA SHAH OUTPATIEN 4 4 PHYSICIAN MILY T VISIT S GROUP 15 MINUTES HOSPITAL MEHRAN - 4 4 [facility] OUTPATIEN INC T OFFICE 51900 [facility] TOÑITO OUTPATIEN 4 4 NEUROLOGY MAURICE T VISIT CENTER 25 [place] MINUTES OFFICE 79669 SIMON [place] OUTPATIEN 4 4 FARMWORKER GRAIN CAROL ANN T NEW 30 ASSOCIATE MINUTES S, OFFICE 19487 [facility] SUJATHA SHAH OUTPATIEN 4 4 PHYSICIAN MILY T NEW 30 S GROUP MINUTES HOSPITAL MEHRAN - 4 4 [facility] OUTPATIEN INC T OFFICE 31698 [facility] TOÑITO OUTPATIEN 4 4 NEUROLOGY MAURICE T VISIT CENTER 25 [place] MINUTES PERIODIC 28870 CALLUM LEONARDM PREVENTIV 4 4 WHI WHI E MED EST PATIENT 40-64YRS OFFICE 17657 [facility]ORATIONIST CALLUM OUTPATIEN 4 4 HEALTH WHI T VISIT MEDICAL 15 GROUP MINUTES OFFICE 20293 CALLUM CALLUM OUTPATIEN 4 4 WHI WHI T VISIT 25 MINUTES OFFICE 34401 APPLE CHIU OUTPATIEN 4 4 ANT ANT T VISIT 15 MINUTES OFFICE 65767 FAYE MCKINNEY OUTPATIEN 4 4 MAX MAX T VISIT 15 MINUTES HOSPITAL CENTRAL - 4 4 [facility]IST OUTPATIEN HOSP T OFFICE 55571 VASCELLO VASCELLO OUTPATIEN 4 4 GIANNI GIANNI T VISIT 25 MINUTES OFFICE 42423 [facility] CHIU OUTPATIEN 4 4 ANT ANT T VISIT 15 MINUTES OFFICE 54093 MARII HAM MARII HAM OUTPATIEN 4 4 T NEW 45 MINUTES OFFICE 46527 CALLUM CALLUM OUTPATIEN 4 4 WHI WHI T VISIT 15 MINUTES OFFICE 43441 GO TRA GO TRA OUTPATIEN 4 4 T VISIT 15 MINUTES OFFICE 74361 CALLUM CALLUM OUTPATIEN 4 4 WHI WHI T VISIT 25 MINUTES OFFICE 52657 APPLE CHIU OUTPATIEN 4 4 ANT ANT T VISIT 15 MINUTES HOSPITAL UNIVERSIT - 4 4 Y OUTPATIEN HOSPITAL T OFFICE 51929 UNIVERSIT OUTPATIEN 4 4 Y T VISIT 5 HOSPITAL MINUTES [facility]OSPITAL MEHRAN - 4 4 [facility] OUTPATIEN [facility] MEHRAN - 4 4 [facility] OUTPATIEN [facility] MEHRAN - 4 4 [facility] OUTPATIEN [facility] T OFFICE 50932 GO TRA GO TRA CONSULTAT 4 4 ION NEW/ESTAB PATIENT 60 MIN OFFICE 50681 APPLE CHIU OUTPATIEN 4 4 ANT ANT T VISIT 25 MINUTES OFFICE 53485 ARNOLD ARNOLD OUTPATIEN 4 4 MAX MAX T NEW 30 MINUTES OFFICE 75280 CALLUMMt NOLEN OUTPATIEN 4 4 WHI WHI T VISIT 25 MINUTES EMERGENCY 47119 [facility] FRANCISCA ISBELL DEPT 3 3 EMERGENCY VISIT PHYS PSC HIGH SEVERITY& THREAT [facility] CENTRAL - 3 3 [facility]OR[facility]IST OUTPATIEN HOSP T EMERGENCY 88057 [facility] 3 3 [facility] MODERATE SEVERITY
--- OUTSIDE RECORDS SUMMARY | 2017-07-01 21:47 | External Medical Summary Rpt ---
Author Author [employer], [employer] Organization [employer] Address Unknown Phone Unavailable Results CBC W Auto Differential panel in Blood Observa Value Referen Units Interpr Notes Date tion ce etation Range Granulocy 1.8 - 7.8 K/mm3 Normal No Jun 16 low informati 2017 7:03 [#/volume on in PM ] in source Blood by data Automated count Granulocy 37.0 - % Normal No Jul 01 low/100 80.0 informati 2017 7:03 leukocyte on in PM s in source Blood by data Automated count Hematocri 37.0 - % Normal No Jul 01 t [Volume 47.0 informati 2017 7:03 on in PM Fraction] source of Blood data Hemoglobi 12.2 - g/dL Normal No Jul 01 n 16.2 informati 2017 7:03 [Mass/vol on in PM ume] in source Blood data Lymphocyt 0.7 - 4.5 K/mm3 Normal No Jun 16 es informati 2017 7:03 [#/volume on in PM ] in source Unspecifi data ed specimen by Automated count Lymphocyt 10 - 50.0 % Normal No Jul 01 es informati 2017 7:03 [#/volume on in PM ] in source Unspecifi data ed specimen by Automated count Erythrocy 27 - 31.2 pg Normal No Jul 01 te mean informati 2017 7:03 corpuscul on in PM ar source hemoglobi data n [Entitic mass] Erythrocy 31.8 - g/dl Normal No Jul 01 te mean 35.4 informati 2017 7:03 corpuscul on in PM ar source hemoglobi data n concentra tion [Mass/vol ume] by Automated count Erythrocy 82.2 - fL Normal No Jul 01 te mean 97.8 informati 2017 7:03 corpuscul on in PM ar volume source [Entitic data volume] by Automated count Monocytes 0.1 - 1.0 K/mm3 Normal No Jun 16 informati 2016 7:03 [#/volume on in PM ] in source Blood by data Automated count Monocytes 1.7 - 9.3 % Normal No Jul 01 /100 informati 2017 7:03 leukocyte on in PM s in source Blood by data Automated count Platelets 142 - 424 K/mm3 Normal No Jul 01 inform2016 7:03 [#/volume on in PM ] in source Blood data Erythrocy 4.2 - 5.4 M/mm3 Normal No Jul 01 low informati 2016 7:03 [#/volume on in PM ] in source Amniotic data fluid Erythrocy 11.5 - % Normal No Jul 01 te 17.5 informati 2016 7:03 distribut on in PM ion width source [Entitic data volume] by Automated count Leukocyte 4.8 - K/mm3 Normal No Jul 01 s 10.8 informati 2016 7:03 [#/volume on in PM ] in source Blood data Basic metabolic panel in Blood Observa Value [...] Normal No May 01 dioxide, 32.0 informati 2016 total on in 12:16 PM [Moles/vo source [...] 145 mmoL/L Normal No May 01 [Moles/vo 2016 lume] in on in 12:16 PM Serum or source Plasma data CBC W Auto Differential panel in Blood Observa Value Referen Units Interpr Notes Date tion ce etation Range Basophils 0 - 0.2 K/MM3 Normal No May 01 inform2016 [#/volume on in 12:16 PM ] in source Blood by data Automated count Basophils 0.1 - 2.0 % Normal No May 01 /100 informati 2016 leukocyte on in 12:16 PM s in source Blood by data Automated count Eosinophi 0.0 - 0.4 K/mm3 Normal No May 01 ls informati 2016 [#/volume on in 12:16 PM ] in source Blood by data Automated count Eosinophi 0.1 - % Normal No May 01 ls/100 12.0 inform2016 leukocyte on in 12:16 PM s in source Blood by data Automated count Granulocy 1.8 - 7.8 K/mm3 Normal No May 01 low 2016 [#/volume on in 12:16 PM ] [...] 4.5 K/mm3 Normal No May 01 es inform2016 [#/volume [...] Normal No May 01 te mean 35.4 informati 2017 corpuscul on in 12:16 PM ar source hemoglobi data n concentra tion [Mass/vol ume] by Automated count Erythrocy 82.2 - fl Normal No Apr 16 te mean 97.8 informati 2016 corpuscul on in 12:16 PM ar volume source [Entitic data volume] by Automated count Monocytes 0.1 - 1.0 K/mm3 Normal No Apr 16 informati 2016 [#/volume on in 12:16 PM ] in source Blood by data Automated count Monocytes 1.7 - 9.3 % Normal No Apr 16 /100 informati 2017 leukocyte on in 12:16 PM s in source Blood by data Automated count Platelet 7.4 - fl Normal No May 01 mean 10.4 informati 2016 volume on in 12:16 PM [Entitic source volume] data in Blood by Automated count Platelets 142 - 424 K/mm3 Normal No Apr 16 informati 2016 [#/volume on in 12:16 PM ] in source Blood data Erythrocy 4.2 - 5.4 M/mm3 Normal No Apr 16 low informati 2016 [#/volume on in 12:16 PM ] in source Amniotic data fluid Erythrocy 11.5 - % Normal No May 01 te 17.5 informati 2016 distribut on in 12:16 PM ion width source [Entitic data volume] by Automated count Leukocyte 4.8 - K/MM3 Normal No Apr 16 s 10.8 informati 2016 [#/volume on in 12:16 PM ] in source Blood data
--- OUTSIDE RECORDS SUMMARY | 2017-07-01 21:47 | External Medical Summary Rpt ---
Demographics Preferred Language Albanian Marital Status Unknown Mandaeism Affiliation Unknown Race Unknown Ethnic Group Unknown Author Author MARLA Address Unknown Phone Immunization No patient found.
--- OUTSIDE RECORDS SUMMARY | 2017-07-01 21:47 | External Medical Summary Rpt ---
Demographics Preferred Language Thai Marital Status Unknown Nondenominational Affiliation Unknown Race Unknown Ethnic Group Unknown Author Author MARLA Address Unknown Phone Immunization No patient found.
[2017-07-01 23:15] VITALS: BP 128/84
[2017-07-01] MEDS ORDERED: AMLO5TAB PO (23:27)
[2017-07-02] VITALS (7 sets, daily range): BP systolic 102–124; BP diastolic 56–70
--- NOTE | 2017-07-02 04:41 | RADIOLOGY REPORT PS360 ---
CHEST-PORTABLE HISTORY: chest pain ORDERING PHYSICIAN: Gene Awan MD PATIENT AGE: 46 years COMPARISON: 07/29/2016 FINDINGS: The cardiomediastinal silhouette and pulmonary vascularity are within normal limits. The lungs are clear without infiltrates, suspicious nodules, or pleural effusions. No acute bony abnormalities. Bone plate is present over the lower cervical spine Minimal atelectatic changes are present in the left lung base and there is a calcified granuloma in the left upper lobe. IMPRESSION: Minimal left basilar atelectasis
[2017-07-02 07:16] LABS: LYMPH # 2.8 K/mm3 (0.7-4.5); LYMPH % 45.8 % (10-50.0)
--- NOTE | 2017-07-02 07:32 | PHARMACY CLINIC NOTE ---
Patient Demographics Patient Demographics Admission date: 07/01/17 Date: 07/02/17 Time: 0731 Allergies Coded Allergies: niacin (Severe, S-DIFF. BREATHING 05/06/17) Penicillins (Intermediate, I-HIVES 05/06/17) ondansetron (From ZOFRAN ( HYDROCHLORIDE)) (Mild, ABD PAIN 05/06/17) HEIGHT- FT: 5 IN: 6.00 K.400 VTE General Information Labs: Laboratory Tests 07/01 1903 Hematology Hgb (12.2 - 16.2 g/dL) 13.8 Hct (37.0 - 47.0 %) 43.3 Plt Count (142 - 424 K/mm3) 161 Disclaimer The following section includes nursing documentation that has been pulled in for pharmacy review. Patient's VTE score: 2 Patient's VTE Risk: VERY LOW RISK Clinical trial participant? No VTE prophylaxis NQF [id number] VTE prophylaxis ordered? Yes Type of prophylaxis/treatment: KARLA at 0731
[2017-07-02] MEDS ORDERED: AMLO5TAB PO (08:00)
--- NOTE | 2017-07-02 09:23 | CONSULT NOTE ---
Standard Demographics Patient Demo Date of Consultation: 07/02/17 Referring Provider: Gene Awan MD Reason for Consultation: Chest pain PRIMARY DIAGNOSIS: CHEST PAIN Problem list Problem list: 1. Reportedly normal coronary arteries, 2012 2. Gastroparesis 3. HTN 4. Hyperlipidemia 5. FH of ASHD in father 6. History of Chiari malformation A. s/p surgery X 2 in the past with partial skull resection and reportedly surgical resection of C1-C7 7. Chronic back pain secondary to DDD A. Implanted pain pump, 2016 History of present illness: History of present illness: 46 yo WF with history of normal coronaries in 2012 with pericarditis at that time, presented with constellation of symptoms of chest tightness, pressure, pain that radiates into neck with associated dizziness, lightheadedness, nausea and SOA. Symptoms have been intermittent over the last week and not associated with acitivity. Questionably exacerbated by eating or deep breathing and improved with Dexilant. Denies any fever, chills, vomiting or diarrhea. Due to symptoms, improvement with NTG and EKG showing ST elevation in the inferior and lateral leads in a scooping fashion indicative of pericarditis, patient was admitted for further observation. Troponins have returned normal X 3. Cardiology consulted for further evatuation. Past Medical History: General: Hypertension Yes CVA No Seizures Yes TB No COPD No Asthma No Diabetes No Insulin Dependent No Insulin Pump No Angina Yes SC No Hyperlipidemia No Urinary Yes Cancer No Rheumatic H.D. 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 BREATHING 05/06/17) Penicillins (Intermediate, I-HIVES 05/06/17) ondansetron (From ZOFRAN ( HYDROCHLORIDE)) (Mild, ABD PAIN 05/06/17) Home medications: Reported Medications Clonidine Hydrochloride (Clonidine 0.2MG Tab) 0.1 MG PO QID Amlodipine Besylate (Amlodipine) 5 MG PO DAILY #30 Levothyroxine Sodium (Levothyroxine) 0.05 MG PO DAILY Dexlansoprazole (Dexilant) 60 MG PO DAILY NEBIVOLOL HCL (Bystolic) 20 MG PO BID Current Medications: Current Medications Carvedilol 25 MG BID PO Clonidine HCl 0.1 MG BID PO Levothyroxine Sodium 0.05 MG DAILY PO Sodium Chloride 10 ML PRN PRN IV Nitroglycerin 1 IN Q8 TP Acetaminophen 650 MG Q4HP PRN PO Promethazine HCl 25 MG Q4HP PRN IV Sodium Chloride 1,000 ML .[id number] IV Sodium Chloride 25 ML PRN PRN IV Nitroglycerin 1 IN ONCE ONE TP (DC) Nitroglycerin 0 .STK-MED ONE .ROUTE (DC) Sodium Chloride 10 ML PRN PRN IV Aspirin 0 .STK-MED ONE .ROUTE (DC) Aspirin 324 MG ONCE ONE PO (DC) Immunization HX DT/Tetanus 1-4 Years Flu 2014-FSN Pneumonia RECEIVED IN PAST TB Test in last year No Family history Family HX Family Hx Insignificant No Diabetes Yes CAD No Hypertension Yes Hyperlipidemia Yes Cancer Yes TB No Social Hx: Smoking HX Tobacco No Type N/A Alcohol Alcohol: No Hx of Drug Use Drug Use? No Review of systems: Constitutional No: no symptoms reported. Respiratory SOB with excertion. Cardiovascular see HPI, chest pain Gastrointestinal/Abdominal nausea Genitourinary No: no symptoms reported. Musculoskeletal back pain. Neurological No: no symptoms reported. Exam: Admission Vital Signs: 1ST Vital Signs Result Date Time Pulse Ox 98 07/01 1815 B/P 123/74 07/01 1815 Temp 98.3 07/01 181 Pulse 63 07/01 1815 Resp 18 07/01 1815 O2 Delivery ROOM AIR 07/01 2315 Last Vital Signs: Vital Signs Result Date Time Pulse Ox 96 07/02 08 B/P 104/60 07/02 08 O2 Delivery ROOM AIR 07/02 08 Temp 98.3 07/02 08 Pulse 64 07/02 0800 Resp 18 07/02 0800 Exam General appearance: alert, awake, no acute distress Neck: no carotid bruit, no JVD Cardiovascular: regular rate & rhythm, no murmur Respiratory: clear to auscultation, good air movement ABD: soft, no tenderness Extremities: moves all, no peripheral edema Neuro: alert, intact, oriented Laboratory data: Laboratory Tests 07/02/17 0655: Troponin I < 0.02, WBC 6.1, RBC 4.28, Hgb 13.0, Hct 38.6, MCV 90.3, RDW 13.9, Plt Count 162, MPV 9.6, Gran % 44.4, Gran # 2.7, Lymphocytes % 45.8, Monocytes % 5.6, Eosinophils % 3.8, Basophils % 0.4, Lymphocytes # 2.8, Monocytes # 0.3, Eosinophils # 0.2, Basophils # 0.0, PUBS MCHC 33.1, MCH 29.9 07/01/173: Troponin I < 0.02 07/01/171902: Triglycerides 301 H, Cholesterol 218 H, LDL Cholesterol 114.8, VLDL Cholesterol 60.2 H, HDL Cholesterol 43.0 07/01/171902: Sodium 139, Potassium 3.2 L, Chloride 104, Carbon Dioxide 27, BUN 12, Creatinine 0.8, Estimated Creat Clear 126, Estimated GFR (MDRD) 77, Glucose 79, Calcium 8.8, Total Bilirubin 0.3, AST 19, ALT 24, Alkaline Phosphatase 59, Creatine Kinase 99, CK-MB (CK-2) Rel Index 0.6, CK and CKMB Interp 0.6, Troponin I < 0.02, Total Protein 7.4, Albumin 4.0, Globulin 3.4 H, Albumin/Globulin Ratio 1.2, WBC 7.3, RBC 4.76, Hgb 13.8, Hct 43.3, MCV 90.9, RDW 14.8, Plt Count 161, Gran % 46.3, Gran # 3.4, Lymphocytes % 47.4, Monocytes % 6.3, Lymphocytes # 3.5, Monocytes # 0.5, PUBS MCHC 31.9, MCH 29.0 Plan: Assessment: 1. Chest pain with normal troponins X 3 and normal coronaries by cath in 2013. She is a non-smoker and is not diabetic. Echo this AM shows normal LVEF without evidence of effusion or wall motion abnormalities. EKG changes appear to be chronic. Would not recommend further workup at this time. Would recommend GI evaluation for chest pain related to history of gastroparesis. 2. HTN, controlled 3. Gastroparesis Recommendations: Ok for discharge home from Cardiology clinic. Follow up in 2 wks. Continue current meds. at 0922
--- NOTE | 2017-07-02 09:53 | Discharge Summary Standard ---
Demographics: Admit date: 07/01/17 Chief complaint: chest pain PRIMARY DIAGNOSIS: CHEST PAIN Allergies: Coded Allergies: niacin (Severe, S-DIFF. BREATHING 05/06/17) Penicillins (Intermediate, I-HIVES 05/06/17) ondansetron (From ZOFRAN ( HYDROCHLORIDE)) (Mild, ABD PAIN 05/06/17) History of present illness: History of present illness: 46 yo WF with history of normal coronaries in 2013 with pericarditis at that time, presented with constellation of symptoms of chest tightness, pressure, pain that radiates into neck with associated dizziness, lightheadedness, nausea and SOA. Symptoms have been intermittent over the last week and not associated with acitivity. Questionably exacerbated by eating or deep breathing and improved with Dexilant. Denies any fever, chills, vomiting or diarrhea. Due to symptoms, improvement with NTG and EKG showing ST elevation in the inferior and lateral leads in a scooping fashion indicative of pericarditis, patient was admitted for further observation. Troponins have returned normal X 3 this morning and patient has had no furthersymptoms of chest painand wishes to be discharged home. In talking to patient, she has a long history of gastroparesis but has not seen gastroenterology in quite a while. Past medical history: Family HX Diabetes Yes CAD No Hypertension Yes Hyperlipidemia Yes Cancer Yes TB No Immunization HX DT/Tetanus 1-4 Years Ago Flu 2014-16FSN Pneumonia Received In Past TB Test in last year No General CAD? No Angina: Yes [place]: No Hypertension? Yes Hyperlipidemia? No CHF? No DVT? No PE? No COPD? No Asthma? No Anemia? No GERD? Yes Gastric ulcers? No GI Bleed? No Hernia? Yes Thyroid Problems? No Hypothyroidism? Yes CVA? No Seizures? Yes Diabetes? No Insulin Dependent: No Insulin Pump: No Home FSBS? No Renal Insuffiency? No UTI? No Stones? No BPH? No GB Disease: Yes Nephritic Syndrome? No Asplenia? No Hepatitis? No Sickle Cell Disease? No Arthritis? No Migraines? No Cataracts? No Glaucoma? No MRSA? No HIV? No TB? No Anxiety? No Depression? No Cancer? No More? 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 No Patien't marital status is Patient's support system is fair Review of systems: Constitutional malaise, weakness. No: fever. Respiratory No: no symptoms reported. Cardiovascular see HPI Gastrointestinal/Abdominal see HPI Genitourinary No: no symptoms reported. Musculoskeletal joint pain, joint swelling, muscle pain, muscle stiffness. Neurological Yes: headache, numbness, tingling, weakness. Exam: Lab data for last 24 hours: Laboratory Tests 07/02/17 0655: Troponin I < 0.02, WBC 6.1, RBC 4.28, Hgb 13.0, Hct 38.6, MCV 90.3, RDW 13.9, Plt Count 162, MPV 9.6, Gran % 44.4, Gran # 2.7, Lymphocytes % 45.8, Monocytes % 5.6, Eosinophils % 3.8, Basophils % 0.4, Lymphocytes # 2.8, Monocytes # 0.3, Eosinophils # 0.2, Basophils # 0.0, PUBS MCHC 33.1, MCH 29.9 07/01/173: Troponin I < 0.02 07/01/171902: Triglycerides 301 H, Cholesterol 218 H, LDL Cholesterol 114.8, VLDL Cholesterol 60.2 H, HDL Cholesterol 43.0 07/01/171902: Sodium 139, Potassium 3.2 L, Chloride 104, Carbon Dioxide 27, BUN 12, Creatinine 0.8, Estimated Creat Clear 126, Estimated GFR (MDRD) 77, Glucose 79, Calcium 8.8, Total Bilirubin 0.3, AST 19, ALT 24, Alkaline Phosphatase 59, Creatine Kinase 99, CK-MB (CK-2) Rel Index 0.6, CK and CKMB Interp 0.6, Troponin I < 0.02, Total Protein 7.4, Albumin 4.0, Globulin 3.4 H, Albumin/Globulin Ratio 1.2, WBC 7.3, RBC 4.76, Hgb 13.8, Hct 43.3, MCV 90.9, RDW 14.8, Plt Count 161, Gran % 46.3, Gran # 3.4, Lymphocytes % 47.4, Monocytes % 6.3, Lymphocytes # 3.5, Monocytes # 0.5, PUBS MCHC 31.9, MCH 29.0 Admission vital signs: 1ST Vital Signs Result Date Time Pulse Ox 98 07/01 1815 B/P 123/74 07/01 1815 Temp 98.3 07/01 1815 Pulse 63 07/01 1815 Resp 18 07/01 1815 O2 Delivery ROOM AIR 07/01 2315 Additional information: Patient is alert, pleasant. Talkative. Cranial nerves intact although patient is limited by her surgical scar in her neck. Lungs are clear, heart rate regular.Trace ankle edema but good distal pulses, normal perfusion. Normal capillary refill. Hospital Course Hospital Course: patient was admitted, ruled out for myocardial infarction. Echocardiogram report reviewed. Cardiology consultation report reviewed. Agree with diagnosis of EKG changes from pericarditis.Chest pain is noncardiac. 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 Medications Medications: Discharge meds are as noted. Follow up Follow up in office in: 2 WEEKS with: DENISE VAIL at 0954
--- NOTE | 2017-07-02 14:10 | RADIOLOGY REPORT PS360 ---
PROCEDURE: 2-D M-mode and color Doppler study INDICATIONS FOR THE TEST: Chest pain+ COPD Heart Murmur Tobacco Smoking Palpitations Fatigue Syncope Edema Hypertension+Diabetes Mellitus Rheumatic Fever SOB PONCE Obesity Hyperlipidemia Family History HD Additional History PATIENT INFORMATION HEIGHT: 66 WEIGHT: 205 GENDER: Female B/P: 100/70 2-D/M-MODE INTERPRETATION: 2-D MEASUREMENTS OBSERVED VALUES IN CMS Right Ventricular Dimension (RVDd) 2.4 Interventricular Septum (Thickness)(IVsd) 1.1 Left Ventricular Internal Dimensions(LVIDd) 4.4 Left Ventricular Posterior Wall (Thickness)(LVPWd) 0.8 Aortic Root 2.7 Aortic Cusp Separation 1.8 Left Atrial Dimensions (LAD) 3.9 2D 1. Left atrium is mildly enlarged, left ventricle is normal size, there is borderline concentric left ventricular hypertrophy, visually estimated ejection fraction 55% with no obvious regional wall motion abnormality. 2. The right atrium is normal size, right ventricle appears to be mildly enlarged with normal contractility. 3. The aortic, mitral and tricuspid valve are grossly normal. 4. The pulmonic valve is poorly visualized. 5. No significant pericardial effusion noted. DOPPLER INTERROGATION: Doppler interrogation of the aortic mitral and tricuspid valvular presence of trace mitral and tricuspid regurgitation, tricuspid and jet velocity insufficient for calculation of the right ventricular systolic pressure, diastolic parameters are inconclusive. CONCLUSION: 1. Mildly left atrium, normal left ventricular size, borderline concentric left ventricular hypertrophy, visually estimated ejection fraction of 55% with no obvious regional wall motion abnormality, diastolic parameters are inconclusive. 2. Trace mitral and tricuspid regurgitation. 3. No significant pericardial effusion noted.
[2017-08-11] MEDS ORDERED: DILAUDID2 MG IT (14:31)
== END 2017-07-02 15:00 | disposition home or self-care (01) ==
LOC: ER 18:13 → 2ND 21:22 → ER 21:22 → 2ND 21:34
PROVIDERS: Emergency Medicine
DX: R07.9 Chest pain, unspecified (principal); I10 Essential (primary) hypertension
CPT/HCPCS: G0378

== ENCOUNTER → 2017-08-11 | Day surgery (SDC) | payer MEDICAID ==
[~2017-08-11] VITALS: Ht 167.6 cm; Wt 93.0 kg
[~2017-08-11] MED LIST changes: +AMLO5TAB PO; +CLONIDINE 0.2M0.2 MG PO; +DILAUDID2 MG IT
[2017-08-11 14:18] VITALS: BP 156/92
[2017-08-11 15:00] VITALS: BP 156/92; BP 167/101
--- NOTE | 2017-08-11 15:31 | Procedure Note ---
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 Cervical postlaminectomy syndrome. Post-procedure diagnosis: Same. Indications for procedure: This patient is a very pleasant 46-year-old white female that we've been treating for quite some time for chronic cervical neck pain secondary to degenerative disease cervical spine. Cervical postlaminectomy syndrome. Also, lumbar back pain. Patient presents today for her first intrathecal pain pump refill. She currently has hydromorphone mg/ml. We will increase her concentration to 2 mg/ml. Her pump currently runs at 0.15 mg per day. She's having some increased pain in her cervical and lumbar areas with activity. We will increase her 0.16 mg per day. Her PTC will remain the same at 0.015 mg 4 times daily. Procedure detail: Details of procedure is going to the patient. The patient was taken to procedure room placed in the sitting position. The area over the pump was cleansed using chlorhexidine as a cleansing solution. The pump was accessed with ease using a 22-gauge needle from the refill kit. 6 mg of solution was withdrawn and discarded appropriately. The pump was infiltrated 20 mL of hydromorphone 2 mg/ mL. The pump was interrogated. The rate was increased to 0.169 g per day. Plan and disposition: Patient was reevaluated 15 minutes post procedure. She is doing very well. She' ll return to see us as needed. at 1530
[2017-08-11 15:32] VITALS: BP 160/100
== END ==
LOC: PM 14:00
DX: M50.30 Other cervical disc degeneration, unspecified cervical region (principal); M96.1 Postlaminectomy syndrome, not elsewhere classified

== ENCOUNTER → 2017-08-19 | Outpatient (CLI) | payer MEDICAID ==
--- NOTE | 2017-08-20 22:31 | RADIOLOGY REPORT PS360 ---
MRI-C-SPINE W/O, MRI-3D RENDERING/MYELOGRAM HISTORY: NECK PAIN Patient Age: 47 years: Female Ordering Physician: TESHA SEVERINO TECHNIQUE: COMPARISON :CT C-spine 02/25/2016 & MRI C-spine 01/10/2014 FINDINGS Previous extensive suboccipital craniotomy presumably reflecting Chiari malformation surgery. Associated Extensive posterior cervical laminectomy . Removal of posterior elements throughout the entire C-spine down through C7 again noted. There is been previous anterior fusion at C5-C7. It is difficult to visualize the individual vertebral bodies on MR due to the metal artifact from anterior screws and the extensive postsurgical changes here.. Generous cranial cervical junction. C2 disc normal. Anterior subluxation C2 on 3 appears similar to previous 2014. Approximately 3.5 mm anterior positioning C3 on C4. Generous kyphosis from again c3-C4 level. Similar to previous studies. Prominent anterior marginal osteophytes and buttressing at C3/4 and C4/5.-These are the the levels above the extensive lower cervical anterior fusion. C3/4. Narrowed disc space but no posterior protrusion. Again noted the facets of C3 significant right up on the C4 facet particularly here on the left. With only minimal residual articulation between these C3/4 facets on the left. Nearly but not perched.. No facet locking. Overall stable appearance versus in 2014 MRI. This feature is actually best appreciated and evaluated on the February [address] CT. . C4/5. Prominent Disc space narrowing. No protrusion minor posterior ridging. The generous kyphosis at C4 level is noted in the cord is seen draping over and slightly flattened anteriorly as it passes along the posterior margin of the generous posterior contour C4 vertebral body.. Which appears to mildly efface and flatten the anterior aspect of the cervical cord through this segment. C5 appears to be a small and totally fused with C6 & C7 vertebral bodies. Disc spaces are obliterated. Anterior metallic plate is applied with screws securing such at C5, C6 and C7. Generous spinal canal through this segment At C7/T1 just below the fused segment, there is slight additional disc space narrowing versus 2014 MR. Increased signal at end plates suggesting degenerative reactive endplate changes.... Small disc protrusion midline noted.. Unimpressive. There is likely some mild hypertrophy arthropathy at C7/T1 which slightly indents the posterior thecal sac on right more than left.. Also note less pronounced facet degenerative changes at levels above this at lower C-spine. The T1/T2 disc unremarkable and T2/T3 IMPRESSION. Extensive suboccipital craniotomy with extensive laminectomy throughout the C-spine again noted. Overall the C-spine appears surprising stable since 2013 MR [address] CT. Only suggestion of subtle slight progressive degenerative disc changes at C7/T1,. With additional reactive endplate changes now evident about this narrowed disc. Only scant central central disc protrusion again seen at this level. Overall stable appearance of the C 5/6/7 fused segment. Prominent kyphosis C3-C5 again noted and stable. With this again note note the C3 facets right quite high on C4 facets particularly on right.-But appears overall Stable. Additional details in text
== END ==
LOC: RAD 15:59
DX: M54.2 Cervicalgia (principal)

== ENCOUNTER → 2017-10-21 | Outpatient (CLI) | payer MEDICAID | LOC: LAB 12:05 | DX: E03.8 Other specified hypothyroidism (principal); E06.3 Autoimmune thyroiditis ==